=== PATIENT | male | born 1940 | race African-American/Black ===

== ENCOUNTER 2018-01-07 18:50 | Inpatient (IN) | payer MEDICARE ==
[~2018-01-07] VITALS: Ht 170.2 cm; Wt 74.9 kg
[2018-01-07] MEDS ORDERED: Sodium Chloride 500ML 500 ML IV ONE (19:39)
[2018-01-07] MEDS ORDERED: Ipratropium 0.02% Inh Soln 2.5ml UD HHN ONE (19:45)
[2018-01-07] MEDS ORDERED: Levalbuterol Inh UD 1.25mg/0.5ml HHN ONE (19:45)
[2018-01-07 20:00] VITALS: BP 113/79
[2018-01-07] MEDS ORDERED: Metoprolol 5mg/5ml Inj IVP ONE (21:00)
[2018-01-07 21:09] LABS: BASOPHILS % (AUTO) 2.2 % (0.0-2.0); EOSINOPHILS % (AUTO) 1.2 % (0.0-3.0); HEMATOCRIT 38.2 % (42.0-52.0); HEMOGLOBIN 12.7 G/DL (14.2-18.0); LYMPHOCYTES % (AUTO) 25.5 % (20.0-45.0); MEAN CORPUSCULAR VOLUME 95 FL (80-99); NEUTROPHILS % (AUTO) 63.1 % (45.0-75.0); PLATELET COUNT 138 K/UL (150-450); RED BLOOD COUNT 4.04 M/UL (4.70-6.10); RED CELL DISTRIBUTION WIDTH 13.7 % (11.6-14.8); WHITE BLOOD COUNT 9.7 K/UL (4.8-10.8)
[2018-01-07 21:10] LABS: APPEARANCE,URINE CLEAR; BILIRUBIN, URINE NEGATIVE (NEGATIVE); GLUCOSE, URINE (UA) NEGATIVE (NEGATIVE); KETONES,URINE 1+ (NEGATIVE); LEUKOCYTE ESTERASE ,URINE 1+ (NEGATIVE); NITRITE,URINE NEGATIVE (NEGATIVE); PH,URINE 5 (4.5-8.0); PROTEIN,URINE 1+ (NEGATIVE); UROBILINOGEN,URINE 1 MG/DL (0.0-1.0)
[2018-01-07 21:11] LABS: COLOR,URINE YELLOW
[2018-01-07 21:21] LABS: ANION GAP 14 mmol/L (5-15); BLOOD UREA NITROGEN 19 mg/dL (7-18); CALCIUM 9.1 MG/DL (8.5-10.1); CARBON DIOXIDE 21 MMOL/L (21-32); CHLORIDE 106 MMOL/L (98-107); CREATININE 1.5 MG/DL (0.55-1.30); POTASSIUM 3.9 MMOL/L (3.5-5.1); SODIUM 141 MMOL/L (136-145)
[2018-01-07 21:30] VITALS: BP 115/99
[2018-01-07 21:48] LABS: ALANINE AMINOTRANSFERASE 26 U/L (12-78); ALBUMIN 3.4 G/DL (3.4-5.0); ALBUMIN/GLOBULIN RATIO 0.7 (1.0-2.7); ALKALINE PHOSPHATASE 70 U/L (46-116); ASPARTATE AMINO TRANSFERASE 43 U/L (15-37); BILIRUBIN,TOTAL 0.9 MG/DL (0.2-1.0); CKMB 7.3 NG/ML (0.0-3.6); CREATINE KINASE 386 U/L (26-308)
[2018-01-07 22:20] LABS: INR 1.1 (0.9-1.1)
[2018-01-07] MEDS ORDERED: Heparin 5000 units/ml inj IV ONE (22:45)
[2018-01-07] MEDS ORDERED: Heparin 25,000u/D5W 500ml 500 ML IV SCH (22:45)
[2018-01-07 23:00] VITALS: BP 105/86
[2018-01-07] MEDS ORDERED: Heparin 5000 units/ml inj ONE (23:13)
[2018-01-07] MEDS ORDERED: Heparin 25,000u/D5W 500ml 500 ML IV ONE (23:13)
--- NOTE | 2018-01-07 23:16 | Emergency Room Report ---
History of Present Illness General Chief Complaint: Upper Respiratory Illness Source: Patient Present Illness HPI 77-year-old male presents ED for evaluation. Patient complaining of cough 2 weeks. Dry with white phlegm at times. Denies chest pain or shortness of breath. Denies fevers chills. States other family members also are sick with the "flu". Did not receive flu shot this year. Denies recent travel. No other aggravating relieving factors. Denies any other associated symptoms Allergies: Coded Allergies: No Known Allergies (Unverified , 01/07/18) Patient History Past Medical History: none Past Surgical History: none Pertinent Family History: none Social History: Denies: smoking, alcohol use, drug use Immunizations: UTD Reviewed Nursing Documentation: PMH: Agreed; PSxH: Agreed Nursing Documentation-PMH Past Medical History: No History, Except For Review of Systems All Other Systems: negative except mentioned in HPI Physical Exam Vital Signs Date Time Temp Pulse Resp B/P (MAP) Pulse Ox O2 Delivery O2 Flow Rate FiO2 01/07/18 18:59 98.1 132 16 113/79 96 Room Air 01/07/18 19:53 21 Sp02 EP Interpretation: reviewed, normal General Appearance: no apparent distress, alert, GCS 15, non-toxic Head: normocephalic, atraumatic Eyes: bilateral eye normal inspection, bilateral eye PERRL ENT: hearing grossly normal, normal pharynx, no angioedema, normal voice Neck: full range of motion, supple/symm/no masses Respiratory: chest non-tender, decreased breath sounds, speaking full sentences Cardiovascular #1: no edema, tachycardia Cardiovascular #2: 2+ carotid (R), 2+ carotid (L), 2+ radial (R), 2+ radial (L) , 2+ dorsalis pedis (R), 2+ dorsalis pedis (L) Gastrointestinal: normal bowel sounds, non tender, soft, non-distended, no guarding, no rebound Rectal: deferred Genitourinary: normal inspection, no CVA tenderness Musculoskeletal: back normal, gait/station normal, normal range of motion, non- tender Neurologic: alert, oriented x3, responsive, motor strength/tone normal, sensory intact, speech normal Psychiatric: judgement/insight normal, memory normal, mood/affect normal, no suicidal/homicidal ideation Reflexes: 3+ bicep (R), 3+ bicep (L), 3+ tricep (R), 3+ tricep (L), 3+ knee (R) , 3+ knee (L) Skin: normal color, no rash, warm/dry, well hydrated Lymphatic: no adenopathy Procedures Critical Care Time Critical Care Time i. I feel this is a highly complex case requiring extensive working including EKG/Rhythm strip, Xray/CT/US, Blood/urine lab work, repeat exams while in ED, and administration of strong opiates/narcotics for pain control, admission to hospital or close patient follow up. Total time: 30 min bedside evaluation and treatment excludes procedures (EKG). Reason for critical care: afib, NSTEMI Possible complications: hypotension, hypertension, SD, shock, arrhythmias, metabolic acidosis, end organ damage, respiratory failure. Interventions: labs, IVFs, EKG, CXR, nebs, flu swab, consultation with cardiology. lopressor. cardizem drip, heparin drip Course: Patient presenting with cough and congestion. Given breathing treatment. EKG shows a flutter new onset. Chest x-ray shows some perihilar fullness. Troponin greater than 3. Denies chest pain. Creatinine 1.5. Initially given Lopressor. Discussed with Dr. Nolasco - started on cardizem drip and heparin drip Consultations: nursing staff, EMS, family Performed by: Dr Vallejo Tolerated well condition = critical j. because of unstable vital signs this patient had a condition that could potentially threaten life or limb. I feel this is a critical patient who required my full attention while patient was considered critical. Total Critical Care Time excluding procedures was greater than 35 minutes Medical Decision Making Diagnostic Impression: Primary Impression: Atrial flutter Qualified Codes: I48.92 - Unspecified atrial flutter Additional Impressions: NSTEMI (non-ST elevated myocardial infarction) Renal insufficiency ER Course Hospital Course 77 yo M presents with cough, congestion Differential diagnoses include: SD/unstable angina, contusion, muscle strain, PTX, rib fracture, pneumonia, Clinical course Patient placed on stretcher. on secured entrance monitor which shows aflutter new onset. No prior history. Denies chest pain or shortness of breath started on neb treatments labs reviewed- no leukocytosis, hemoglobin/hematocrit ok, Cr 1.5, trop > 3 EKG - aflutter, no acute ischemic changes interpreted by me Chest x-ray- no lobar infiltrate Levaquin given. discussed case with Dr Nolasco - recommended cardizem drip, heparin drip Case discussed with Dr. Watt and he agreed to accept the patient to his service for further care and support I. I feel this is a highly complex case requiring extensive working including EKG/Rhythm strip, Xray/CT/US, Blood/urine lab work, repeat exams while in ED, and administration of strong opiates/narcotics for pain control, admission to hospital or close patient follow up. Diagnosis - aflutter, NSTEMI, renal insufficency admitted to ICU in critical condition Labs Test 01/07/18 20:45 White Blood Count 9.7 K/UL (4.8-10.8) Red Blood Count 4.04 M/UL (4.70-6.10) Hemoglobin 12.7 G/DL (14.2-18.0) Hematocrit 38.2 % (42.0-52.0) Mean Corpuscular Volume 95 FL (80-99) Mean Corpuscular Hemoglobin 31.4 PG (27.0-31.0) Mean Corpuscular Hemoglobin Concent 33.2 G/DL (32.0-36.0) Red Cell Distribution Width 13.7 % (11.6-14.8) Platelet Count 138 K/UL (150-450) Mean Platelet Volume 9.2 FL (6.5-10.1) Neutrophils (%) (Auto) 63.1 % (45.0-75.0) Lymphocytes (%) (Auto) 25.5 % (20.0-45.0) Monocytes (%) (Auto) 8.0 % (1.0-10.0) Eosinophils (%) (Auto) 1.2 % (0.0-3.0) Basophils (%) (Auto) 2.2 % (0.0-2.0) Prothrombin Time 11.8 SEC (9.30-11.50) Prothromb Time International Ratio 1.1 (0.9-1.1) Activated Partial Thromboplast Time 29 SEC (23-33) Urine Color Yellow Urine Appearance Clear Urine pH 5 (4.5-8.0) Urine Specific [place] 1.020 (1.005-1.035) Urine Protein 1+ (NEGATIVE) Urine Glucose (UA) Negative (NEGATIVE) Urine Ketones 1+ (NEGATIVE) Urine Blood Negative (NEGATIVE) Urine Nitrite Negative (NEGATIVE) Urine Bilirubin Negative (NEGATIVE) Urine Urobilinogen 1 MG/DL (0.0-1.0) Urine Leukocyte Esterase 1+ (NEGATIVE) Urine RBC 0-2 /HPF (0 - 0) Urine WBC 2-4 /HPF (0 - 0) Urine Squamous Epithelial Cells None /LPF (NONE/OCC) Urine Bacteria Few /HPF (NONE) Sodium Level 141 MMOL/L (136-145) Potassium Level 3.9 MMOL/L (3.5-5.1) Chloride Level 106 MMOL/L (98-107) Carbon Dioxide Level 21 MMOL/L (21-32) Anion Gap 14 mmol/L (5-15) Blood Urea Nitrogen 19 mg/dL (7-18) Creatinine 1.5 MG/DL (0.55-1.30) Estimat Glomerular Filtration Rate mL/min (>60) Glucose Level 118 MG/DL (74-106) Lactic Acid Level 1.40 mmol/L (0.4-2.0) Calcium Level 9.1 MG/DL (8.5-10.1) Total Bilirubin 0.9 MG/DL (0.2-1.0) Aspartate Amino Transf (AST/SGOT) 43 U/L (15-37) Alanine Aminotransferase (ALT/SGPT) 26 U/L (12-78) Alkaline Phosphatase 70 U/L (46-116) Total Creatine Kinase 386 U/L (26-308) Creatine Kinase MB 7.3 NG/ML (0.0-3.6) Creatine Kinase MB Relative Index 1.8 Troponin I 3.317 ng/mL (0.000-0.056) Pro-B-Type Natriuretic Peptide 54775 pg/mL (0-125) Total Protein 8.0 G/DL (6.4-8.2) Albumin 3.4 G/DL (3.4-5.0) Globulin 4.6 g/dL Albumin/Globulin Ratio 0.7 (1.0-2.7) EKG Diagnostic Results Rate: tachycardiac Rhythm: other - aflutter ST Segments: no acute changes ASA given to the pt in ED: No Rhythm Strip Diag. Results EP Interpretation: yes Rhythm: no PVC's, no ectopy Chest X-Ray Diagnostic Results Chest X-Ray Diagnostic Results : Chest X-Ray Ordered: Yes # of Views/Limited/Complete: 1 View Indication: Other - cough EP Interpretation: Yes Interpretation: no pneumothorax, other - perihilar fullness Impression: No acute disease Electronically Signed by: Electronically signed by Jase Vallejo MD Last Vital Signs Date Time Temp Pulse Resp B/P (MAP) Pulse Ox O2 Delivery O2 Flow Rate FiO2 01/07/18 23:00 126 105/86 01/07/18 20:01 17 100 Room Air 21 01/07/18 18:59 98.1 Status: improved Disposition: ADMITTED INPATIENT Condition: Critical Referrals: DARLINE UPTON MD (PCP) Jase Vallejo MD Jan 07, 2018 23:16
[2018-01-07] MEDS ORDERED: Levofloxacin 500mg tab ORAL ONE (23:30)
[2018-01-07] MEDS ORDERED: Levofloxacin 500mg tab ONE (23:38)
[2018-01-08] VITALS (21 sets, daily range): BP systolic 80–114; BP diastolic 52–85
[2018-01-08] MEDS ORDERED: Sodium Chloride 500ML 550 ML IV SCH (05:15)
[2018-01-08 06:59] LABS: INR 1.2 (0.9-1.1)
[2018-01-08] MEDS: Heparin 25,000u/D5W 500ml 500 ML IV SCH ×2 (08:27→23:24)
[2018-01-08] MEDS ORDERED: Heparin 25,000u/D5W 500ml 500 ML IV SCH (08:30)
[2018-01-08 09:22] LABS: BASOPHILS % (AUTO) 1.1 % (0.0-2.0); EOSINOPHILS % (AUTO) 0.7 % (0.0-3.0); HEMATOCRIT 41.1 % (42.0-52.0); LYMPHOCYTES % (AUTO) 22.5 % (20.0-45.0); MEAN CORPUSCULAR VOLUME 95 FL (80-99); MONOCYTES % (AUTO) 9.4 % (1.0-10.0); NEUTROPHILS % (AUTO) 66.3 % (45.0-75.0); PLATELET COUNT 128 K/UL (150-450); RED BLOOD COUNT 4.35 M/UL (4.70-6.10); RED CELL DISTRIBUTION WIDTH 14.2 % (11.6-14.8); WHITE BLOOD COUNT 9.5 K/UL (4.8-10.8)
[2018-01-08] MEDS ORDERED: guaiFENesin 100mg/5ml Liq ud ORAL PRN (09:30)
[2018-01-08] MEDS ORDERED: Ipratropium 0.02% Inh Soln 2.5ml UD HHN PRN (09:30)
[2018-01-08] MEDS ORDERED: Azithromycin 250mg tab ORAL SCH (09:39)
--- NOTE | 2018-01-08 09:39 | Consultation ---
Consult Note Consult Note asked to eval for renal insufficiency 77-year-old male presents ED for evaluation. Patient complaining of cough 2 weeks. Dry with white phlegm at times. Denies chest pain or shortness of breath. Denies fevers chills. States other family members also are sick with the "flu". Did not receive flu shot this year. Denies recent travel. No other aggravating relieving factors. Denies any other associated symptoms Allergies: Coded Allergies: No Known Allergies (Unverified , 01/07/18) examined discussed with immigration officer/Plan Renal failure ? chronic Atrial Flutter NSTMI, elevated Troponin cardiazem drip- 2 D Echo check TSH Urine studies monitor renal parameters per orders per cardio Tu Garcia MD Jan 08, 2018 09:39
--- NOTE | 2018-01-08 09:46 | Consultation ---
Consult Note Assessment/Plan [facility] DICT # [id number] URI/bronchitis AFlcRVR NSTEMI Abnl Cr, MADHAV vs CKD Prior (remote) DVT Dilt gtt [facility] Cards/EPS eval ? CV IVF CTx/Azith Atrovent HHN Mucinex/Toribio PRN NPO until seen by Wally England MD Jan 08, 2018 09:46
[2018-01-08] MEDS: D5NS 1,000 ML IV SCH (10:07)
--- NOTE | 2018-01-08 10:20 | Diagnostic Imaging Report ---
Indication: Chest pain Technique: One view of the chest Comparison: none Findings: The heart is enlarged. The right costophrenic sulcus is obscured, may indicate a small amount of pleural fluid. There is equivocal minimal perihilar interstitial congestion. No focal airspace consolidation. There may be some atelectasis at the right lung base. Impression: Cardiomegaly Possible mild perihilar interstitial congestion and small right pleural effusion
[2018-01-08] MEDS: cefTRIAXone 1 GM in D5W 55 ML IVPB SCH (11:00)
--- NOTE | 2018-01-08 11:45 | Consultation ---
DATE OF CONSULTATION: 01/08/2018 PULMONARY AND CRITICAL CARE CONSULTATION CONSULTING PHYSICIAN: Wally Chowdhury M.D. REFERRING PHYSICIAN: Inocencia Watt M.D. REASON FOR CONSULTATION: Critical care management and respiratory illness. HISTORY OF PRESENT ILLNESS: The patient is a very pleasant 77-year-old male, lifelong nonsmoker with remote history of DVT greater than 15 years ago, who presented to the ED for evaluation of cough for 2 weeks. Initially 2 weeks ago, he started having some rhinorrhea, congestion, cough, and sore throat. He treated himself with cnlv-zww-bobvdfx cold and flu medications with some alleviation of his symptoms, however, over the course of the past few days, the symptoms recurred prompting him to come to the ER for evaluation. He did not have a flu shot this year. He does have some sick family members. In addition to cough and congestion, he notes some wheezing, shortness of breath, low-grade fevers. No chills. No nausea, vomiting, diarrhea, or constipation. Upon arrival to the ER, he was afebrile, but he was in atrial flutter with rapid rate, borderline blood pressure. He has been saturating well on room air to 2 L. PAST MEDICAL HISTORY: DVT in 2002, etiology unknown. PAST SURGICAL HISTORY: None. ALLERGIES: No known drug allergies. MEDICATIONS: Prior to admission, medications none. 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 He is , has grown kids, and has a dog at home. No tobacco, alcohol, or drug use. FAMILY HISTORY: Noncontributory. REVIEW OF SYSTEMS: Negative other than the history of present illness. PHYSICAL EXAMINATION: VITAL SIGNS: Temperature 98.1, pulse 102 and regular, respiratory rate 18, blood pressure 98/71, saturating 99% on room air. GENERAL: He is a well-developed, well-nourished male, in no acute distress. Awake, alert, and oriented x3. HEENT: Normocephalic and atraumatic. Oropharynx is clear with moist mucous membranes. NECK: Supple without lymphadenopathy or JVD. CHEST: Clear to auscultation bilaterally without wheezing, rales, or rhonchi. HEART: Regular rate and rhythm. No murmurs, rubs, or gallops. ABDOMEN: Soft, nontender, and nondistended. EXTREMITIES: No cyanosis, clubbing, or edema. ANCILLARY DATA: White count 9.7, hemoglobin 12.7, and platelet count 138,000. INR 1.2. Sodium 141, potassium 3.9, chloride 105, bicarbonate 21, BUN 19, creatinine 1.5, glucose 148, lactic acid 1.4, calcium 9.1, total bilirubin 0.9, AST 43, ALT 26, and alkaline phosphatase 70. Total creatine kinase 386, CK-MB 7.3, troponin 3.317 and 2.316. ProBNP 11,863. Total protein 8, albumin 3.4, globulin 4.6. Urine, 1+ protein, 1+ ketones. Rapid influenza A and B in the ER was negative. Chest x-ray though not yet loaded on PACS, per ER report was within normal limits. ASSESSMENT: The patient is a very pleasant 77-year-old male, lifelong nonsmoker with remote history of DVT, presenting with a recent respiratory illness, likely URI/bronchitis, complicated by atrial flutter with a rapid ventricular response, exs-RW-pjtfhxlhf [place], and abnormal creatinine (MADHAV versus CKD). PROBLEM LIST: 1. Respiratory illness, URI/tracheobronchitis versus early pneumonia. 2. Systemic inflammatory response syndrome. 3. Atrial flutter with rapid ventricular response. 4. Tng-UA-jxlwzkzmf [place], likely demand ischemia in the setting of rapid atrial flutter. 5. 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 6. Remote history of DVT in 2012, off anticoagulation prior to this admission. TREATMENT PLAN: 1. Continue ICU care. 2. Continue diltiazem drip and IV unfractionated heparin per Cardiology. 3. The patient may require chemical or mechanical cardioversion. 4. Follow up echocardiogram. 5. Trend EKG and troponin. 6. Monitor renal function and volumes, we will start gentle IV fluid hydration. 7. We will start Rocephin and azithromycin (today is day #1). 8. Follow up cultures including respiratory and viral culture. 9. We will keep n.p.o. until evaluated by Dr. Conde in the event the patient requires a cardioversion. 10. Follow up duplex of the lower extremities and D-dimer. 11. DVT prophylaxis. The patient is on IV unfractionated heparin. 12. Optimize pulmonary hygiene/mobilize as tolerated. 13. Dkqmb-lgh-wgkvj and p.r.n. Atrovent only handheld nebulized treatment. 14. Mucinex and p.r.n. Robitussin. CRITICAL CARE TIME: [address] Watt, thank you for allowing me to assist in the care of your patient. If I may be of any assistance in the future, please do not hesitate to ask. Wally Chowdhury M.D. DR: Jagdish JOB#: [id number] CC:
[2018-01-08 12:14] LABS: BASOPHILS % (AUTO) 1.3 % (0.0-2.0); EOSINOPHILS % (AUTO) 0.3 % (0.0-3.0); HEMOGLOBIN 12.7 G/DL (14.2-18.0); MEAN CORPUSCULAR VOLUME 94 FL (80-99); NEUTROPHILS % (AUTO) 72.3 % (45.0-75.0); PLATELET COUNT 143 K/UL (150-450); RED BLOOD COUNT 4.24 M/UL (4.70-6.10); RED CELL DISTRIBUTION WIDTH 14.3 % (11.6-14.8); WHITE BLOOD COUNT 9.7 K/UL (4.8-10.8)
--- NOTE | 2018-01-08 12:31 | GI Initial Consult Note ---
History of Present Illness General Date patient seen: Jan 08, 2018 Time patient seen: 12:22 Reason for Hospitalization: Upper Respiratory Illness Referring physician: THEA MIRZA Reason for Consultation: ANEMIA Present Illness HPI 77-year-old male presents ED for evaluation. Patient complaining of cough 2 weeks. Dry with white phlegm at times. Denies chest pain or shortness of breath. Denies fevers chills. States other family members also are sick with the "flu". Did not receive flu shot this year. Denies recent travel. No other aggravating relieving factors. Denies any other associated symptoms GI consulted for anemia. Pt seen, awake A&Ox4 NAD, denying any general GI symptoms; no abdominal pain, no N/V/D or constipation. Pt seen in ED, noted with atrial flutter now on heparin and cardizem gtt. The patient had endoscopy / colonoscopy over 7 years ago. Labs reviewed; normocytic anemia and elevated troponin levels. Home Meds No Active Prescriptions or Reported Meds Med list reviewed/reconciled: Yes Allergies: Coded Allergies: No Known Allergies (Unverified , 01/07/18) Patient History History Provided By: Patient, Medical Record PMH Narrative Past Medical History: none Past Surgical History: none Pertinent Family History: none Social History: Denies: smoking, alcohol use, drug use Immunizations: UTD Reviewed Nursing Documentation: PMH: Agreed; PSxH: Agreed Nursing Documentation-PM Past Medical History: No History, Except For Social History: Denies: smoking, alcohol use, drug use, other Review of Systems All Other Systems: negative except mentioned in HPI Physical Exam Vital Signs Date Time Temp Pulse Resp B/P (MAP) Pulse Ox O2 Delivery O2 Flow Rate FiO2 01/07/18 18:59 98.1 132 16 113/79 96 Room Air 01/07/18 19:53 21 01/08/18 08:37 2.0 Sp02 EP Interpretation: reviewed, normal Labs Laboratory Tests Test 01/07/18 20:45 01/08/18 05:15 01/08/18 09:55 01/08/18 11:55 White Blood Count 9.7 K/UL (4.8-10.8) 9.5 K/UL (4.8-10.8) 9.7 K/UL (4.8-10.8) Red Blood Count 4.04 M/UL (4.70-6.10) L 4.35 M/UL (4.70-6.10) L 4.24 M/UL (4.70-6.10) L Hemoglobin 12.7 G/DL (14.2-18.0) L 13.0 G/DL (14.2-18.0) L 12.7 G/DL (14.2-18.0) L Hematocrit 38.2 % (42.0-52.0) L 41.1 % (42.0-52.0) L 40.0 % (42.0-52.0) L Mean Corpuscular Volume 95 FL (80-99) 95 FL (80-99) 94 FL (80-99) Mean Corpuscular Hemoglobin 31.4 PG (27.0-31.0) H 29.8 PG (27.0-31.0) 30.0 PG (27.0-31.0) Mean Corpuscular Hemoglobin Concent 33.2 G/DL (32.0-36.0) 31.5 G/DL (32.0-36.0) L 31.8 G/DL (32.0-36.0) L Red Cell Distribution Width 13.7 % (11.6-14.8) 14.2 % (11.6-14.8) 14.3 % (11.6-14.8) Platelet Count 138 K/UL (150-450) L 128 K/UL (150-450) L 143 K/UL (150-450) L Mean Platelet Volume 9.2 FL (6.5-10.1) 8.6 FL (6.5-10.1) 9.3 FL (6.5-10.1) Neutrophils (%) (Auto) 63.1 % (45.0-75.0) 66.3 % (45.0-75.0) 72.3 % (45.0-75.0) Lymphocytes (%) (Auto) 25.5 % (20.0-45.0) 22.5 % (20.0-45.0) 18.0 % (20.0-45.0) L Monocytes (%) (Auto) 8.0 % (1.0-10.0) 9.4 % (1.0-10.0) 8.0 % (1.0-10.0) Eosinophils (%) (Auto) 1.2 % (0.0-3.0) 0.7 % (0.0-3.0) 0.3 % (0.0-3.0) Basophils (%) (Auto) 2.2 % (0.0-2.0) H 1.1 % (0.0-2.0) 1.3 % (0.0-2.0) Prothrombin Time 11.8 SEC (9.30-11.50) H 12.4 SEC (9.30-11.50) H Prothromb Time International Ratio 1.1 (0.9-1.1) 1.2 (0.9-1.1) H Activated Partial Thromboplast Time 29 SEC (23-33) 70 SEC (23-33) H Urine Color Yellow Urine Appearance Clear Urine pH 5 (4.5-8.0) Urine Specific [place] 1.020 (1.005-1.035) Urine Protein 1+ (NEGATIVE) H Urine Glucose (UA) Negative (NEGATIVE) Urine Ketones 1+ (NEGATIVE) H Urine Blood Negative (NEGATIVE) Urine Nitrite Negative (NEGATIVE) Urine Bilirubin Negative (NEGATIVE) Urine Urobilinogen 1 MG/DL (0.0-1.0) H Urine Leukocyte Esterase 1+ (NEGATIVE) H Urine RBC 0-2 /HPF (0 - 0) H Urine WBC 2-4 /HPF (0 - 0) Urine Squamous Epithelial Cells None /LPF (NONE/OCC) Urine Bacteria Few /HPF (NONE) Sodium Level 141 MMOL/L (136-145) Pending Potassium Level 3.9 MMOL/L (3.5-5.1) Pending Chloride Level 106 MMOL/L (98-107) Pending Carbon Dioxide Level 21 MMOL/L (21-32) Pending Anion Gap 14 mmol/L (5-15) Blood Urea Nitrogen 19 mg/dL (7-18) H Pending Creatinine 1.5 MG/DL (0.55-1.30) H Pending Estimat Glomerular Filtration Rate mL/min (>60) Pending Glucose Level 118 MG/DL (74-106) H Pending Lactic Acid Level 1.40 mmol/L (0.4-2.0) Calcium Level 9.1 MG/DL (8.5-10.1) Pending Total Bilirubin 0.9 MG/DL (0.2-1.0) Pending Aspartate Amino Transf (AST/SGOT) 43 U/L (15-37) H Pending Alanine Aminotransferase (ALT/SGPT) 26 U/L (12-78) Pending Alkaline Phosphatase 70 U/L (46-116) Pending Total Creatine Kinase 386 U/L (26-308) H Creatine Kinase MB 7.3 NG/ML (0.0-3.6) H Creatine Kinase MB Relative Index 1.8 Troponin I 3.317 ng/mL (0.000-0.056) 2.367 ng/mL (0.000-0.056) Pending Pro-B-Type Natriuretic Peptide 86304 pg/mL (0-125) H Pending Total Protein 8.0 G/DL (6.4-8.2) Pending Albumin 3.4 G/DL (3.4-5.0) Pending Globulin 4.6 g/dL Pending Albumin/Globulin Ratio 0.7 (1.0-2.7) L Arterial Blood pH 7.373 (7.350-7.450) Arterial Blood Partial Pressure CO2 32.1 mmHg (35.0-45.0) L Arterial Blood Partial Pressure O2 124.5 mmHg (75.0-100.0) H Arterial Blood HCO3 18.3 mmol/L (22.0-26.0) L Arterial Blood Oxygen Saturation 97.9 % (95-100) Arterial Blood Base Excess -5.9 (-2-2) L Asad Test Positive D-Dimer Pending Hemoglobin A1c Pending Uric Acid Pending Phosphorus Level Pending Magnesium Level Pending Gamma Glutamyl Transpeptidase Pending C-Reactive Protein, Quantitative Pending Triglycerides Level Pending Cholesterol Level Pending LDL Cholesterol Pending HDL Cholesterol Pending Cholesterol/HDL Ratio Pending Thyroid Stimulating Hormone (TSH) Pending General Appearance: well appearing, no apparent distress, alert Head: normocephalic EENT: PERRL/EOMI, normal ENT inspection Neck: supple Respiratory: normal breath sounds, no respiratory distress Cardiovascular: normal rate Gastrointestinal: normal inspection, non tender, soft, normal bowel sounds, non -distended Rectal: deferred Genitourinary: deferred Musculoskeletal: normal inspection, back normal Neurologic: normal inspection, alert, oriented x3, responsive Psychiatric: normal inspection, judgement/insight normal, memory normal Skin: normal inspection, normal color, no rash, warm/dry, palpation normal, well hydrated Lymphatic: normal inspection, no adenopathy Current Medications Current Medications Medications (Trade) Dose Ordered Sig/Fritz Route PRN Reason Start Time Stop Time Status Last Admin Dose Admin Acetaminophen (Tylenol) 650 mg Q4HR PRN ORAL For Pain 01/08/18 05:45 02/07/18 05:44 Azithromycin (Zithromax) 250 mg DAILY ORAL 01/09/18 09:00 01/16/18 08:59 Ceftriaxone Sodium 1 gm/ Dextrose 55 ml @ 110 mls/hr Q24H IVPB 01/08/18 11:00 01/15/18 10:59 01/08/18 11:00 Dextrose/Sodium Chloride 1,000 ml @ 50 mls/hr Q20H IV 01/08/18 09:51 02/07/18 09:50 01/08/18 10:07 Diltiazem HCl 125 mg/Dextrose 125 ml @ 0 mls/hr Q24H IV 01/08/18 07:00 01/09/18 06:59 01/08/18 12:19 Guaifenesin (Mucinex ER) 600 mg TWICE A DAY ORAL 01/08/18 18:00 02/07/18 17:59 Guaifenesin (Robitussin) 100 mg Q4H PRN ORAL For Cough 01/08/18 09:30 02/07/18 09:29 Heparin Sodium/ Dextrose 500 ml @ 17.418 mls/ hr ADJUST PER PROTOCOL IV 01/08/18 08:27 02/07/18 08:26 Ipratropium [place] (Atrovent) 500 mcg Q4H PRN HHN Shortness of Breath 01/08/18 09:30 01/13/18 09:29 Ipratropium [place] (Atrovent) 500 mcg Q6HRT HHN 01/08/18 13:00 01/13/18 12:59 Pantoprazole (Protonix) 40 mg DAILY ORAL 01/08/18 09:39 02/07/18 09:38 01/08/18 10:07 GI: Plan Problems: (1) Anemia (2) Atrial flutter (3) Atrial fibrillation (4) NSTEMI (non-ST elevated myocardial infarction) Plan fu cardiology recommendations no urgent GI procedures needed at this time advance diet anemia work up OB stool r/o GI bleed monitor H&H, prn transfusions bowel regime ppi zofran prn fu labs outpatient GI procedures, will require cardiac clearance prior Discussed with Dr. Boo. Thank you for this patient referral, we will follow. The patient was seen and examined at bedside and all new and available data was reviewed in the patients chart. I agree with the above findings, impression and plan. (Patient seen earlier today. Signature stamp does not reflect patient encounter time.). - MD Samaria Franklin,[facility] [place] TRIAGE REGISTERED NURSE Jan 08, 2018 12:31
[2018-01-08 12:41] LABS: ALANINE AMINOTRANSFERASE 28 U/L (12-78); ALBUMIN 3.2 G/DL (3.4-5.0); ALBUMIN/GLOBULIN RATIO 0.7 (1.0-2.7); ALKALINE PHOSPHATASE 69 U/L (46-116); ANION GAP 13 mmol/L (5-15); ASPARTATE AMINO TRANSFERASE 35 U/L (15-37); BILIRUBIN,TOTAL 1.1 MG/DL (0.2-1.0); BLOOD UREA NITROGEN 20 mg/dL (7-18); CALCIUM 8.6 MG/DL (8.5-10.1); CARBON DIOXIDE 20 MMOL/L (21-32); CHLORIDE 107 MMOL/L (98-107); CHOLESTEROL 100 MG/DL (< 200); CREATININE 1.5 MG/DL (0.55-1.30); GAMMA GLUTAMYL TRANSPEPTIDASE 44 U/L (5-85); HDL CHOLESTEROL 41 MG/DL (40-60); PHOSPHORUS 4.2 MG/DL (2.5-4.9); POTASSIUM 4.2 MMOL/L (3.5-5.1); SODIUM 140 MMOL/L (136-145); TRIGLYCERIDES 70 MG/DL (30-150)
[2018-01-08] MEDS: Ipratropium 0.02% Inh Soln 2.5ml UD HHN SCH ×2 (12:45→19:50)
[2018-01-08 12:49] LABS: BILIRUBIN,DIRECT 0.3 MG/DL (0.0-0.3)
--- NOTE | 2018-01-08 15:15 | Consultation ---
DATE OF CONSULTATION: 01/08/2018 INFECTIOUS DISEASES CONSULTATION CONSULTING PHYSICIAN: Trinh Landon M.D. REFERRING PHYSICIAN: Inocencia Watt M.D. This consultation has been done on behalf of Dr. Alexis Rivera. REASON FOR CONSULTATION: Pneumonia. HISTORY OF PRESENTING ILLNESS: This is a 77-year-old gentleman with history of DVT, who came in with cough along with shortness of breath, some congestion, and sore throat. He was found to be having atrial flutter with rapid rate. He has been admitted to the ICU and an Infectious Diseases consultation has been obtained for antibiotics. PAST MEDICAL HISTORY: History of DVT. SOCIAL HISTORY: He does not smoke, drink, or use drugs. FAMILY HISTORY: Noncontributory. REVIEW OF SYSTEMS: RESPIRATORY: No fever or chills. He does have cough. He has shortness of breath. No chest pain. CARDIAC: No chest pain. No palpitation. No dizziness. No syncope. GASTROINTESTINAL: No nausea. No vomiting. No abdominal pain or diarrhea. MEDICATIONS: As an inpatient, he is on azithromycin, guaifenesin, ipratropium, ceftriaxone, Protonix, Atrovent, heparin, diltiazem, Tylenol. ALLERGIES: No known drug allergies. PHYSICAL EXAMINATION: VITAL SIGNS: Temperature of 98.1, T-max of 98.2, pulse of 126, respiratory rate of 18, blood pressure 118/89, O2 saturation of 99%. HEENT: Pupils equally reactive to light and accommodation. Mouth appears clean without thrush. NECK: Supple. No adenopathy. No JVD. CARDIOVASCULAR: Regular rate and rhythm. No murmurs. LUNGS: Clear to auscultation bilaterally. No crackles. No wheezes. ABDOMEN: Soft and nontender. No organomegaly. EXTREMITIES: No cyanosis, no clubbing, no edema. LABORATORY AND DIAGNOSTIC DATA: White count 9.5, hemoglobin 13, hematocrit 41, MCV 95, platelet count of 128,000; neutrophils of 66%. Sodium 141, potassium 3.9, chloride 106, bicarbonate 21, BUN 19, creatinine 1.5, glucose 118, calcium 9.1, total bilirubin 0.9, AST 43, ALT 26, alkaline phosphatase 70. CK of 386, CK-MB 7.3, troponin 2.36, beta-natriuretic peptide 11,863. Total protein 8, albumin 3.4. UA showing 2-4 white cells. Nasal swab was negative for influenza A and B. Chest x-ray showing possible mild perihilar interstitial congestion and small right-sided pleural effusion. ASSESSMENT: This is a 77-year-old gentleman with history of DVT, who comes in with cough and shortness of breath, and was found to have: 1. Possible community-acquired pneumonia versus atypical pneumonia. 2. History of DVT. 3. Myocardial infarction. 4. Atrial flutter with rapid ventricular response. PLAN: 1. Continue ceftriaxone and azithromycin. 2. We will order sputum for Gram stain and culture. 3. We will order for serum Legionella antibody and Mycoplasma serology. 4. We will follow up cultures and adjust antibiotics accordingly. I would like to thank, Dr. Watt, for this consultation. Trinh Landon M.D. DR: Jess JOB#: [id number] CC: Inocencia Watt M.D.
--- NOTE | 2018-01-08 15:26 | Cardiac Electrophysiology PN ---
Subjective Subjective [id number] Objective Last 24 Hour Vital Signs Date Time Temp Pulse Resp B/P (MAP) Pulse Ox O2 Delivery O2 Flow Rate FiO2 01/08/18 12:48 124 20 98 Nasal Cannula 4.0 36 01/08/18 12:46 125 22 Nasal Cannula 4.0 36 01/08/18 12:45 125 22 98 Nasal Cannula 4.0 36 01/08/18 12:19 126 103/89 01/08/18 08:37 Nasal Cannula 2.0 01/08/18 07:00 126 118/89 01/08/18 06:06 98.1 102 18 98/71 99 Room Air 21 01/08/18 05:01 98.1 125 18 91/65 99 Room Air 21 01/08/18 04:00 98.2 124 16 98/75 99 Room Air 21 01/08/18 03:00 98.2 121 17 91/73 99 Room Air 21 01/08/18 02:00 98.2 121 16 95/77 99 Room Air 21 01/08/18 01:00 98.2 126 18 93/72 99 Room Air 21 01/08/18 00:00 98.2 124 18 88/61 99 Room Air 21 01/07/18 23:00 98.1 126 18 105/86 99 Room Air 21 01/07/18 23:00 126 105/86 01/07/18 21:30 98.1 103 18 115/99 99 Room Air 21 01/07/18 21:22 130 117/54 01/07/18 20:01 127 17 100 Room Air 21 01/07/18 20:00 121 Room Air 01/07/18 20:00 98.1 20 113/79 99 Room Air 21 01/07/18 19:53 128 20 99 Room Air 21 01/07/18 19:53 128 20 Room Air 21 01/07/18 18:59 98.1 132 16 113/79 96 Room Air Laboratory Tests Test 01/07/18 20:45 01/08/18 05:15 01/08/18 09:55 01/08/18 11:55 White Blood Count 9.7 K/UL (4.8-10.8) 9.5 K/UL (4.8-10.8) 9.7 K/UL (4.8-10.8) Red Blood Count 4.04 M/UL (4.70-6.10) L 4.35 M/UL (4.70-6.10) L 4.24 M/UL (4.70-6.10) L Hemoglobin 12.7 G/DL (14.2-18.0) L 13.0 G/DL (14.2-18.0) L 12.7 G/DL (14.2-18.0) L Hematocrit 38.2 % (42.0-52.0) L 41.1 % (42.0-52.0) L 40.0 % (42.0-52.0) L Mean Corpuscular Volume 95 FL (80-99) 95 FL (80-99) 94 FL (80-99) Mean Corpuscular Hemoglobin 31.4 PG (27.0-31.0) H 29.8 PG (27.0-31.0) 30.0 PG (27.0-31.0) Mean Corpuscular Hemoglobin Concent 33.2 G/DL (32.0-36.0) 31.5 G/DL (32.0-36.0) L 31.8 G/DL (32.0-36.0) L Red Cell Distribution Width 13.7 % (11.6-14.8) 14.2 % (11.6-14.8) 14.3 % (11.6-14.8) Platelet Count 138 K/UL (150-450) L 128 K/UL (150-450) L 143 K/UL (150-450) L Mean Platelet Volume 9.2 FL (6.5-10.1) 8.6 FL (6.5-10.1) 9.3 FL (6.5-10.1) Neutrophils (%) (Auto) 63.1 % (45.0-75.0) 66.3 % (45.0-75.0) 72.3 % (45.0-75.0) Lymphocytes (%) (Auto) 25.5 % (20.0-45.0) 22.5 % (20.0-45.0) 18.0 % (20.0-45.0) L Monocytes (%) (Auto) 8.0 % (1.0-10.0) 9.4 % (1.0-10.0) 8.0 % (1.0-10.0) Eosinophils (%) (Auto) 1.2 % (0.0-3.0) 0.7 % (0.0-3.0) 0.3 % (0.0-3.0) Basophils (%) (Auto) 2.2 % (0.0-2.0) H 1.1 % (0.0-2.0) 1.3 % (0.0-2.0) Prothrombin Time 11.8 SEC (9.30-11.50) H 12.4 SEC (9.30-11.50) H Prothromb Time International Ratio 1.1 (0.9-1.1) 1.2 (0.9-1.1) H Activated Partial Thromboplast Time 29 SEC (23-33) 70 SEC (23-33) H Urine Color Yellow Urine Appearance Clear Urine pH 5 (4.5-8.0) Urine Specific [place] 1.020 (1.005-1.035) Urine Protein 1+ (NEGATIVE) H Urine Glucose (UA) Negative (NEGATIVE) Urine Ketones 1+ (NEGATIVE) H Urine Blood Negative (NEGATIVE) Urine Nitrite Negative (NEGATIVE) Urine Bilirubin Negative (NEGATIVE) Urine Urobilinogen 1 MG/DL (0.0-1.0) H Urine Leukocyte Esterase 1+ (NEGATIVE) H Urine RBC 0-2 /HPF (0 - 0) H Urine WBC 2-4 /HPF (0 - 0) Urine Squamous Epithelial Cells None /LPF (NONE/OCC) Urine Bacteria Few /HPF (NONE) Sodium Level 141 MMOL/L (136-145) 140 MMOL/L (136-145) Potassium Level 3.9 MMOL/L (3.5-5.1) 4.2 MMOL/L (3.5-5.1) Chloride Level 106 MMOL/L (98-107) 107 MMOL/L (98-107) Carbon Dioxide Level 21 MMOL/L (21-32) 20 MMOL/L (21-32) L Anion Gap 14 mmol/L (5-15) 13 mmol/L (5-15) Blood Urea Nitrogen 19 mg/dL (7-18) H 20 mg/dL (7-18) H Creatinine 1.5 MG/DL (0.55-1.30) H 1.5 MG/DL (0.55-1.30) H Estimat Glomerular Filtration Rate mL/min (>60) mL/min (>60) Glucose Level 118 MG/DL (74-106) H 135 MG/DL (74-106) H Lactic Acid Level 1.40 mmol/L (0.4-2.0) Calcium Level 9.1 MG/DL (8.5-10.1) 8.6 MG/DL (8.5-10.1) Total Bilirubin 0.9 MG/DL (0.2-1.0) 1.1 MG/DL (0.2-1.0) H Aspartate Amino Transf (AST/SGOT) 43 U/L (15-37) H 35 U/L (15-37) Alanine Aminotransferase (ALT/SGPT) 26 U/L (12-78) 28 U/L (12-78) Alkaline Phosphatase 70 U/L (46-116) 69 U/L (46-116) Total Creatine Kinase 386 U/L (26-308) H Creatine Kinase MB 7.3 NG/ML (0.0-3.6) H Creatine Kinase MB Relative Index 1.8 Troponin I 3.317 ng/mL (0.000-0.056) 2.367 ng/mL (0.000-0.056) 2.047 ng/mL (0.000-0.056) Pro-B-Type Natriuretic Peptide 68342 pg/mL (0-125) H 34279 pg/mL (0-125) H Total Protein 8.0 G/DL (6.4-8.2) 7.8 G/DL (6.4-8.2) Albumin 3.4 G/DL (3.4-5.0) 3.2 G/DL (3.4-5.0) L Globulin 4.6 g/dL 4.6 g/dL Albumin/Globulin Ratio 0.7 (1.0-2.7) L 0.7 (1.0-2.7) L Arterial Blood pH 7.373 (7.350-7.450) Arterial Blood Partial Pressure CO2 32.1 mmHg (35.0-45.0) L Arterial Blood Partial Pressure O2 124.5 mmHg (75.0-100.0) H Arterial Blood HCO3 18.3 mmol/L (22.0-26.0) L Arterial Blood Oxygen Saturation 97.9 % (95-100) Arterial Blood Base Excess -5.9 (-2-2) L Asad Test Positive D-Dimer 16.05 mg/L FEU (0.00-0.49) H Hemoglobin A1c 5.3 % (4.3-6.0) Uric Acid 9.2 MG/DL (2.6-7.2) H Phosphorus Level 4.2 MG/DL (2.5-4.9) Magnesium Level 1.7 MG/DL (1.8-2.4) L Direct Bilirubin 0.3 MG/DL (0.0-0.3) Gamma Glutamyl Transpeptidase 44 U/L (5-85) C-Reactive Protein, Quantitative 7.8 mg/dL (0.00-0.90) H Triglycerides Level 70 MG/DL (30-150) Cholesterol Level 100 MG/DL (< 200) LDL Cholesterol 54 mg/dL (<100) HDL Cholesterol 41 MG/DL (40-60) Cholesterol/HDL Ratio 2.4 (3.3-4.4) L Thyroid Stimulating Hormone (TSH) 1.681 uiU/mL (0.358-3.740) Legionella pneumophila Group 1 Ab Pending Legionella pneumophilia IgM Group 1 Pending Mycoplasma pneumoniae IgG Antibody Pending Mycoplasma pneumoniae IgM Ab Titer Pending Microbiology Date/Time Source Procedure Growth Status 01/07/18 20:45 Nasal Nares Influenza Types A,B Antigen (RIOS) - Final Complete Antonio Conde MD Jan 08, 2018 15:26
[2018-01-08] MEDS ORDERED: Digoxin 0.5mg/2ml Inj IVP SCH (15:33)
--- NOTE | 2018-01-08 16:58 | Cardiology Report ---
APPROVED REPORT EXAM: Two-dimensional and M-mode echocardiogram with Doppler and color Doppler. INDICATION Congestive Heart Failure M-Mode DIMENSIONS IVSd1.4 (0.7-1.1cm)Left Atrium (MM)4.9 (1.6-4.0cm) LVDd5.2 (3.5-5.6cm)Aortic Root3.9 (2.0-3.7cm) PWd1.4 (0.7-1.1cm)Aortic Cusp Exc.1.3 (1.5-2.0cm) LVDs4.1 (2.5-4.0cm) PWs1.8 cm Echogenic materical noted in left ventricular apex on some view a thormbus cannot be excluded call placed to ordering physician to notify Normal left ventricular chamber size. Global left ventricular hypokinesis. Left ventricular ejection fraction estimated to be 20-25 %. Mild left ventricular hypertrophy. Large pleural effusion. Mild bi-atrial enlargement. Right ventricular chamber size is within normal limits. Aortic valve calcification with decreased cusp excursion c/w severe aortic stenosis. Heavily thickened mitral valve leaflets with reduced excursion. Heavy mitral annulus and aortic root calcification. Normal pulmonic valve structure. Normal tricuspid valve structure. IVC dilated at 2.2 cm without physiological collapse, suggestive of increased RA pressure. A color flow and spectral Doppler study was performed and revealed: Mild to moderate aortic insufficiency. Peak aortic valve gradient of 84 mmHg and a mean of 50 mmHg. Aortic valve area 0.9 cm2 calculated by continuity equation. Moderate to severe mitral regurgitation. Mitral inflow velocities indicates possible pseudo normalization pattern implying significant left ventricular diastolic dysfunction (Grade II). Mild tricuspid regurgitation. Tricuspid systolic velocities suggests peak right ventricular systolic pressure of 70 mmHg, consistent with severe pulmonary hypertension. Trace pulmonic regurgitation present.
[2018-01-08] MEDS: guaiFENesin ER 600mg tab ORAL SCH (17:36)
--- NOTE | 2018-01-08 20:15 | Consultation ---
DATE OF CONSULTATION: 01/08/2018 CARDIAC ELECTROPHYSIOLOGY CONSULTATION CONSULTING PHYSICIAN: Antonio Conde M.D. REFERRING PHYSICIAN: Inocencia Watt M.D. REASON FOR CONSULTATION: Atrial flutter with rapid ventricular response. HISTORY OF PRESENT ILLNESS: The patient is a 77-year-old gentleman with history of DVT in the past, presented to the emergency room complaining of increasing shortness of breath and cough. The patient was found to be in atrial flutter with rapid ventricular response with heart rate as high as 140 beats per minute. The patient received IV Cardizem and per my order started on Cardizem drip and was transferred to intensive care unit. The patient also underwent a lower extremity duplex that showed acute DVT on the right lower extremity. At the time of my evaluation, the heart is better on Cardizem drip and denies any chest pain. REVIEW OF SYSTEMS: Review of systems was negative other than what was mentioned in the history of present illness. PAST MEDICAL HISTORY: History of DVT. The patient denies any prior myocardial infarction, congestive heart failure, or known coronary artery disease. SOCIAL HISTORY: Does not smoke or drink alcohol or use any drugs. Lives at home. PHYSICAL EXAMINATION: VITAL SIGNS: Blood pressure is 103/89, pulse is 130, and respiration is 20. He is afebrile. HEAD AND NECK: Shows no jugular venous distention. LUNGS: Coarse rhonchi. CARDIOVASCULAR: Shows irregular S1 and S2 with no gallop or murmur and tachycardic. ABDOMEN: Soft. EXTREMITIES: No pitting edema. LABORATORY AND DIAGNOSTIC STUDIES: Laboratories show white count of 9.7, hemoglobin 12.7, hematocrit of 40, and platelet count of 143,000. Sodium 140, potassium 4.2, BUN of 20, creatinine 1.5, and glucose of 135. Troponin 2.367 and 2.04. Initial troponin was 3.317. His BNP is 11,863. CK 386. ASSESSMENT AND PLAN: 1. Troponin elevation. The levels are coming down from 3 to 2. The patient does not have any chest pain. His preliminary report show ejection fraction of only 20% to 25%. The patient would need cardiac catheterization for further evaluation of his coronaries and he will also need and to be optimized on medical therapy. 2. Atrial flutter with rapid ventricular response. This is newly diagnosed. Try to control the rate with Cardizem drip after that switched to the metoprolol in view of his cardiomyopathy. I will put him on Lasix and he would need Isordil in view of renal failure and creatinine 1.5. 3. Congestive heart failure, ejection fraction of 20% with BNP of 11,000. Again, start the patient on Lasix 40 intravenous b.i.d. Eventually would benefit from atrial flutter ablation. 4. Hypertension. Continue current heart failure therapy. 5. Possible pneumonia. On IV antibiotic per infrastructure technician and ID. Thank you very much, Dr. Watt, for allowing me to participate in the care of this patient. Please do not hesitate to contact me for any questions regarding my evaluation. Antonio Conde M.D. DR: EARNESTINE JOB#: [id number] CC:
[2018-01-08] MEDS: Metoprolol Tartrate 50mg tab ORAL SCH (22:01)
[2018-01-09] VITALS (30 sets, daily range): BP systolic 67–151; BP diastolic 41–124
--- NOTE | 2018-01-09 00:14 | History and Physical Report ---
DATE OF ADMISSION: 01/07/2018 HISTORY OF PRESENT ILLNESS: The patient is admitted for atrial fibrillation and non-accelerated myocardial infarction to the ICU, had cough and tachycardia. He had atrial fibrillation with troponin of 3.3 and azotemia as well. The patient had been complaining of productive cough and shortness of breath for 10 days. He does have some cold symptoms. PAST MEDICAL HISTORY: History of DVT, history of CAD, history of azotemia, and atrial fibrillation. PAST SURGICAL HISTORY: None. MEDICATIONS: Listed in the chart. SOCIAL HISTORY: Denies history of smoking, alcohol, or illicit drugs. REVIEW OF SYSTEMS: HEENT: Denies headaches. RESPIRATORY: Reports shortness of breath and nonproductive cough for 10 days, status post cold before that. CARDIOVASCULAR: Denies chest pain. Denies orthopnea. GI: Denies nausea, vomiting, or diarrhea. EXTREMITIES: Pain. PHYSICAL EXAMINATION: VITAL SIGNS: Temperature 97.2, pulse 70, and blood pressure 130/70. HEENT: PERRLA. NECK: Supple. CHEST: Clear to auscultation. CARDIOVASCULAR: Irregularly irregular. GI: Soft and distended. Positive bowel sounds. EXTREMITIES: No edema. Reflexes are equal on both sides. LABORATORY DATA: Creatinine 1.2. Troponin 3.3. ASSESSMENT AND PLAN: 1. Atrial fibrillation. 2. Myocardial infarction. 3. Acute renal failure. PLAN: The patient is in the ICU. Dr. Conde, Dr. Garcia, Dr. Hu, Dr. Boo, Dr. Alexis Rivera, and Dr. Chowdhury asked to see him for the above-mentioned diagnoses and treatment. Inocencia Watt M.D. DR: IRMA JOB#: [id number] CC:
[2018-01-09] MEDS: Ipratropium 0.02% Inh Soln 2.5ml UD HHN SCH ×4 (01:04→19:52)
[2018-01-09 04:57] LABS: BASOPHILS % (AUTO) 1.1 % (0.0-2.0); EOSINOPHILS % (AUTO) 0.9 % (0.0-3.0); HEMATOCRIT 37.7 % (42.0-52.0); HEMOGLOBIN 12.3 G/DL (14.2-18.0); LYMPHOCYTES % (AUTO) 21.9 % (20.0-45.0); MEAN CORPUSCULAR VOLUME 94 FL (80-99); MONOCYTES % (AUTO) 8.7 % (1.0-10.0); NEUTROPHILS % (AUTO) 67.4 % (45.0-75.0); PLATELET COUNT 132 K/UL (150-450); RED CELL DISTRIBUTION WIDTH 14.1 % (11.6-14.8); WHITE BLOOD COUNT 9.6 K/UL (4.8-10.8)
[2018-01-09 05:14] LABS: INR 1.2 (0.9-1.1)
[2018-01-09] MEDS: D5NS 1,000 ML IV SCH (05:15)
[2018-01-09 05:34] LABS: % IRON SATURATION 15 % (15-50); IRON 34 ug/dL (50-175); TOTAL IRON BINDING CAPACITY 228 ug/dL (250-450)
[2018-01-09 05:53] LABS: ALANINE AMINOTRANSFERASE 22 U/L (12-78); ALBUMIN 3.1 G/DL (3.4-5.0); ALBUMIN/GLOBULIN RATIO 0.7 (1.0-2.7); ALKALINE PHOSPHATASE 61 U/L (46-116); ANION GAP 12 mmol/L (5-15); ASPARTATE AMINO TRANSFERASE 44 U/L (15-37); BILIRUBIN,TOTAL 0.9 MG/DL (0.2-1.0); BLOOD UREA NITROGEN 19 mg/dL (7-18); CALCIUM 8.9 MG/DL (8.5-10.1); CARBON DIOXIDE 21 MMOL/L (21-32); CHLORIDE 106 MMOL/L (98-107); CREATININE 1.6 MG/DL (0.55-1.30); FERRITIN 450 NG/ML (8-388); POTASSIUM 4.8 MMOL/L (3.5-5.1); SODIUM 139 MMOL/L (136-145)
[2018-01-09] MEDS: guaiFENesin ER 600mg tab ORAL SCH ×2 (09:00→18:26)
[2018-01-09] MEDS: Metoprolol Tartrate 50mg tab ORAL SCH (09:00)
[2018-01-09] MEDS ORDERED: Azithromycin 250mg tab ORAL SCH (09:00)
[2018-01-09] MEDS ORDERED: Lisinopril 10mg tab ORAL SCH (09:00)
[2018-01-09] MEDS ORDERED: Tubing IV Secondary IV ONE (09:07)
[2018-01-09] MEDS ORDERED: D5 1/2NS 1000ml IV ONE (09:07)
--- NOTE | 2018-01-09 10:04 | Cardiac Electrophysiology PN ---
Assessment/Plan Assessment/Plan 1. Troponin elevation. The levels are coming down from 3 to 1.5. The patient does not have any chest pain. EF is only 20% to 25%. The patient would need cardiac catheterization for further evaluation of his coronaries after optimized on medical therapy. 2. Atrial flutter with rapid ventricular response. This is newly diagnosed. Now off Cardizem drip. Continue Dig and change Metoprolol to Coreg 25 bid Eventually would benefit from atrial flutter ablation. 3. Congestive heart failure, ejection fraction of 20% with BNP of 11,000. On Lasix 40 intravenous bid , Dig, lisinopril and Coreg 4. Hypertension. Continue current therapy.Add prn Clonidine 5. Possible pneumonia. On IV antibiotic per enterprise application analyst and ID. Subjective Subjective Heart rate better in ICU. No CP or SOB Objective Last 24 Hour Vital Signs Date Time Temp Pulse Resp B/P (MAP) Pulse Ox O2 Delivery O2 Flow Rate FiO2 01/09/18 09:00 80 20 115/97 (103) 99 01/09/18 09:00 115/97 01/09/18 09:00 80 117/97 01/09/18 08:40 Nasal Cannula 3.0 32 01/09/18 08:39 77 17 98 Nasal Cannula 3.0 32 01/09/18 08:39 98 Nasal Cannula 3.0 32 01/09/18 08:26 80 17 100 Nasal Cannula 3.0 32 01/09/18 08:00 Nasal Cannula 2.0 01/09/18 08:00 80 01/09/18 08:00 86 20 150/105 (120) 99 01/09/18 07:00 98.2 80 22 151/124 (133) 99 01/09/18 06:00 72 17 132/94 (107) 99 01/09/18 05:00 76 19 124/102 (109) 99 01/09/18 04:30 77 19 94/59 (71) 99 01/09/18 04:00 Nasal Cannula 2.0 01/09/18 04:00 97.9 76 19 131/85 (100) 99 01/09/18 04:00 76 01/09/18 03:30 76 19 129/93 (105) 99 01/09/18 03:00 70 19 96/65 (75) 99 01/09/18 02:30 71 19 68/41 (50) 99 01/09/18 02:00 71 19 67/45 (52) 99 01/09/18 01:30 76 25 82/62 (69) 100 01/09/18 01:16 68 16 100 Nasal Cannula 3.0 32 01/09/18 01:05 73 24 99 Nasal Cannula 3.0 32 01/09/18 01:00 72 25 85/54 (64) 100 01/09/18 00:30 71 25 85/68 (74) 100 01/09/18 00:15 67 25 91/69 (76) 100 01/09/18 00:00 Nasal Cannula 2.0 01/09/18 00:00 97.7 67 25 84/59 (67) 100 01/09/18 00:00 68 01/08/18 23:30 66 25 84/52 (63) 100 01/08/18 23:22 65 91/51 01/08/18 23:00 69 27 80/64 (69) 100 01/08/18 22:45 73 27 91/65 (74) 100 01/08/18 22:30 77 27 91/65 (74) 100 01/08/18 22:15 101 28 101/56 (71) 100 01/08/18 22:01 94 95/78 01/08/18 22:00 92 25 101/56 (71) 100 01/08/18 21:30 89 25 90/62 (71) 98 01/08/18 21:00 83 27 114/85 (95) 100 01/08/18 20:45 84 26 95/63 (74) 99 01/08/18 20:30 83 26 95/63 (74) 99 01/08/18 20:15 91 27 95/63 (74) 100 01/08/18 20:00 82 01/08/18 20:00 86 28 95/63 (74) 99 01/08/18 20:00 Nasal Cannula 2.0 01/08/18 19:59 82 18 100 Nasal Cannula 3.0 32 01/08/18 19:51 Nasal Cannula 3.0 32 01/08/18 19:51 99 Nasal Cannula 3.0 32 01/08/18 19:51 91 28 99 Nasal Cannula 3.0 32 01/08/18 19:50 96 28 Nasal Cannula 3.0 32 01/08/18 19:30 86 28 93/71 (78) 99 01/08/18 19:00 98.0 85 28 92/60 (71) 99 01/08/18 16:00 Nasal Cannula 2.0 01/08/18 16:00 87 01/08/18 15:33 99 01/08/18 12:48 124 20 98 Nasal Cannula 4.0 36 01/08/18 12:46 125 22 Nasal Cannula 4.0 36 01/08/18 12:45 125 22 98 Nasal Cannula 4.0 36 01/08/18 12:19 126 103/89 01/08/18 12:00 Nasal Cannula 2.0 01/08/18 12:00 99 Intake and Output 01/08/18 01/09/18 19:00 07:00 Intake Total 807.418 ml 781.598 ml Output Total 0 ml 800 ml Balance 807.418 ml -18.402 ml Intake Oral 200 ml IV Total 607.418 ml 781.598 ml Output Urine Total 0 ml 800 ml # Voids 1 Laboratory Tests Test 01/08/18 09:55 01/08/18 11:55 01/08/18 19:10 01/09/18 03:40 Arterial Blood pH 7.373 (7.350-7.450) Arterial Blood Partial Pressure CO2 32.1 mmHg (35.0-45.0) L Arterial Blood Partial Pressure O2 124.5 mmHg (75.0-100.0) H Arterial Blood HCO3 18.3 mmol/L (22.0-26.0) L Arterial Blood Oxygen Saturation 97.9 % (95-100) Arterial Blood Base Excess -5.9 (-2-2) L Asad Test Positive White Blood Count 9.7 K/UL (4.8-10.8) 9.6 K/UL (4.8-10.8) Red Blood Count 4.24 M/UL (4.70-6.10) L 4.00 M/UL (4.70-6.10) L Hemoglobin 12.7 G/DL (14.2-18.0) L 12.3 G/DL (14.2-18.0) L Hematocrit 40.0 % (42.0-52.0) L 37.7 % (42.0-52.0) L Mean Corpuscular Volume 94 FL (80-99) 94 FL (80-99) Mean Corpuscular Hemoglobin 30.0 PG (27.0-31.0) 30.7 PG (27.0-31.0) Mean Corpuscular Hemoglobin Concent 31.8 G/DL (32.0-36.0) L 32.6 G/DL (32.0-36.0) Red Cell Distribution Width 14.3 % (11.6-14.8) 14.1 % (11.6-14.8) Platelet Count 143 K/UL (150-450) L 132 K/UL (150-450) L Mean Platelet Volume 9.3 FL (6.5-10.1) 9.8 FL (6.5-10.1) Neutrophils (%) (Auto) 72.3 % (45.0-75.0) 67.4 % (45.0-75.0) Lymphocytes (%) (Auto) 18.0 % (20.0-45.0) L 21.9 % (20.0-45.0) Monocytes (%) (Auto) 8.0 % (1.0-10.0) 8.7 % (1.0-10.0) Eosinophils (%) (Auto) 0.3 % (0.0-3.0) 0.9 % (0.0-3.0) Basophils (%) (Auto) 1.3 % (0.0-2.0) 1.1 % (0.0-2.0) D-Dimer 16.05 mg/L FEU (0.00-0.49) H Sodium Level 140 MMOL/L (136-145) 139 MMOL/L (136-145) Potassium Level 4.2 MMOL/L (3.5-5.1) 4.8 MMOL/L (3.5-5.1) Chloride Level 107 MMOL/L (98-107) 106 MMOL/L (98-107) Carbon Dioxide Level 20 MMOL/L (21-32) L 21 MMOL/L (21-32) Anion Gap 13 mmol/L (5-15) 12 mmol/L (5-15) Blood Urea Nitrogen 20 mg/dL (7-18) H 19 mg/dL (7-18) H Creatinine 1.5 MG/DL (0.55-1.30) H 1.6 MG/DL (0.55-1.30) H Estimat Glomerular Filtration Rate mL/min (>60) mL/min (>60) Glucose Level 135 MG/DL (74-106) H 129 MG/DL (74-106) H Hemoglobin A1c 5.3 % (4.3-6.0) Uric Acid 9.2 MG/DL (2.6-7.2) H Calcium Level 8.6 MG/DL (8.5-10.1) 8.9 MG/DL (8.5-10.1) Phosphorus Level 4.2 MG/DL (2.5-4.9) Magnesium Level 1.7 MG/DL (1.8-2.4) L Total Bilirubin 1.1 MG/DL (0.2-1.0) H 0.9 MG/DL (0.2-1.0) Direct Bilirubin 0.3 MG/DL (0.0-0.3) Gamma Glutamyl Transpeptidase 44 U/L (5-85) Aspartate Amino Transf (AST/SGOT) 35 U/L (15-37) 44 U/L (15-37) H Alanine Aminotransferase (ALT/SGPT) 28 U/L (12-78) 22 U/L (12-78) Alkaline Phosphatase 69 U/L (46-116) 61 U/L (46-116) Troponin I 2.047 ng/mL (0.000-0.056) 1.552 ng/mL (0.000-0.056) C-Reactive Protein, Quantitative 7.8 mg/dL (0.00-0.90) H Pro-B-Type Natriuretic Peptide 42062 pg/mL (0-125) H Total Protein 7.8 G/DL (6.4-8.2) 7.6 G/DL (6.4-8.2) Albumin 3.2 G/DL (3.4-5.0) L 3.1 G/DL (3.4-5.0) L Globulin 4.6 g/dL 4.5 g/dL Albumin/Globulin Ratio 0.7 (1.0-2.7) L 0.7 (1.0-2.7) L Triglycerides Level 70 MG/DL (30-150) Cholesterol Level 100 MG/DL (< 200) LDL Cholesterol 54 mg/dL (<100) HDL Cholesterol 41 MG/DL (40-60) Cholesterol/HDL Ratio 2.4 (3.3-4.4) L Thyroid Stimulating Hormone (TSH) 1.681 uiU/mL (0.358-3.740) HIV (1&2) Antibody Rapid Negative (NEGATIVE) Legionella pneumophila Group 1 Ab Pending Legionella pneumophilia IgM Group 1 Pending Mycoplasma pneumoniae IgG Antibody Pending Mycoplasma pneumoniae IgM Ab Titer Pending Reticulocyte Count Pending Prothrombin Time 12.1 SEC (9.30-11.50) H Prothromb Time International Ratio 1.2 (0.9-1.1) H Activated Partial Thromboplast Time 70 SEC (23-33) H Iron Level 34 ug/dL (50-175) L Total Iron Binding Capacity 228 ug/dL (250-450) L Percent Iron Saturation 15 % (15-50) Unsaturated Iron Binding 194 ug/dL (112-346) Ferritin 450 NG/ML (8-388) H Carcinoembryonic Antigen Pending Vitamin B12 Level 1039 PG/ML (193-986) H Folate 9.5 NG/ML (8.6-58.9) Free Thyroxine 1.29 NG/DL (0.76-1.46) Hepatitis A IgM Antibody Pending Hepatitis B Surface Antigen Pending Hepatitis B Core IgM Antibody Pending Hepatitis C Antibody Pending Test 01/09/18 06:00 Urine Random Sodium 82 mmol/L (20-110) Microbiology Date/Time Source Procedure Growth Status 01/07/18 20:45 Nasal Nares Influenza Types A,B Antigen (RIOS) - Final Complete Objective HEAD AND NECK: No jugular venous distention. LUNGS: Coarse rhonchi. CARDIOVASCULAR: Irregular S1 and S2 with no gallop or murmur ABDOMEN: Soft. EXTREMITIES: No pitting edema. Antonio Conde MD Jan 09, 2018 10:04
--- NOTE | 2018-01-09 10:54 | Diagnostic Imaging Report ---
EXAM: US Abdomen Complete CLINICAL HISTORY: ABD PAIN TECHNIQUE: Real-time ultrasound of the abdomen (complete) with image documentation. COMPARISON: No relevant prior studies available. FINDINGS: Liver: Unremarkable. No parenchymal lesions. No intrahepatic bile duct dilation. Gallbladder: Layering gallbladder sludge versus non-shadowing stones. No gallbladder wall thickening or ductal dilatation. Negative sonographic Scott sign. Normal gallbladder wall thickness. Common bile duct: Common bile duct diameter of 6.3 mm. No stones. No dilation. Pancreas: Unremarkable as visualized. Pancreatic body and tail are obscured by bowel gas. Kidneys: Right kidney length of 10.1 cm. Left kidney length of 8.1 cm. Normal cortical thickness. No visible parenchymal lesions. No visible stones. No hydronephrosis. Spleen: Spleen diameter of 9.2 cm. Aorta: Unremarkable. Visualized portions appear unremarkable without evidence of aneurysm. Inferior vena cava: Unremarkable. Pleural space: Incidental note of pleural effusions. IMPRESSION: 1. Layering gallbladder sludge versus non-shadowing stones. No gallbladder wall thickening or ductal dilatation. Negative sonographic Scott sign. 2. Incidental note of pleural effusions.
[2018-01-09] MEDS: cefTRIAXone 1 GM in D5W 55 ML IVPB SCH (11:00)
--- NOTE | 2018-01-09 11:17 | Infectious Diseases Prog Note ---
Assessment/Plan Assessment/Plan A; Pneumonia CHF, EF=20-25% Atrial flutter Aortic stenosis Mitral regurgitation renal failure P; Continue Zithromax & Rocephin will f/u cultures Subjective ROS Limited/Unobtainable: No Constitutional: Reports: no symptoms Respiratory: Reports: dry cough Cardiovascular: Reports: no symptoms Gastrointestinal/Abdominal: Reports: no symptoms Genitourinary: Reports: no symptoms Neurologic: Reports: no symptoms Allergies: Coded Allergies: No Known Allergies (Unverified , 01/07/18) Objective Vital Signs Last 24 Hour Vital Signs Date Time Temp Pulse Resp B/P (MAP) Pulse Ox O2 Delivery O2 Flow Rate FiO2 01/09/18 10:00 82 20 125/94 (104) 99 01/09/18 09:00 80 20 115/97 (103) 99 01/09/18 09:00 89 01/09/18 09:00 115/97 01/09/18 09:00 80 117/97 01/09/18 08:40 Nasal Cannula 3.0 32 01/09/18 08:39 77 17 98 Nasal Cannula 3.0 32 01/09/18 08:39 98 Nasal Cannula 3.0 32 01/09/18 08:26 80 17 100 Nasal Cannula 3.0 32 01/09/18 08:00 Nasal Cannula 2.0 01/09/18 08:00 80 01/09/18 08:00 86 20 150/105 (120) 99 01/09/18 07:00 98.2 80 22 151/124 (133) 99 01/09/18 06:00 72 17 132/94 (107) 99 01/09/18 05:00 76 19 124/102 (109) 99 01/09/18 04:30 77 19 94/59 (71) 99 01/09/18 04:00 Nasal Cannula 2.0 01/09/18 04:00 97.9 76 19 131/85 (100) 99 01/09/18 04:00 76 01/09/18 03:30 76 19 129/93 (105) 99 01/09/18 03:00 70 19 96/65 (75) 99 01/09/18 02:30 71 19 68/41 (50) 99 01/09/18 02:00 71 19 67/45 (52) 99 01/09/18 01:30 76 25 82/62 (69) 100 11/22/18 01:16 68 16 100 Nasal Cannula 3.0 32 01/09/18 01:05 73 24 99 Nasal Cannula 3.0 32 01/09/18 01:00 72 25 85/54 (64) 100 01/09/18 00:30 71 25 85/68 (74) 100 01/09/18 00:15 67 25 91/69 (76) 100 01/09/18 00:00 Nasal Cannula 2.0 01/09/18 00:00 97.7 67 25 84/59 (67) 100 01/09/18 00:00 68 01/08/18 23:30 66 25 84/52 (63) 100 01/08/18 23:22 65 91/51 01/08/18 23:00 69 27 80/64 (69) 100 01/08/18 22:45 73 27 91/65 (74) 100 01/08/18 22:30 77 27 91/65 (74) 100 01/08/18 22:15 101 28 101/56 (71) 100 01/08/18 22:01 94 95/78 01/08/18 22:00 92 25 101/56 (71) 100 01/08/18 21:30 89 25 90/62 (71) 98 01/08/18 21:00 83 27 114/85 (95) 100 01/08/18 20:45 84 26 95/63 (74) 99 01/08/18 20:30 83 26 95/63 (74) 99 01/08/18 20:15 91 27 95/63 (74) 100 01/08/18 20:00 82 01/08/18 20:00 86 28 95/63 (74) 99 01/08/18 20:00 Nasal Cannula 2.0 01/08/18 19:59 82 18 100 Nasal Cannula 3.0 32 01/08/18 19:51 Nasal Cannula 3.0 32 01/08/18 19:51 99 Nasal Cannula 3.0 32 01/08/18 19:51 91 28 99 Nasal Cannula 3.0 32 01/08/18 19:50 96 28 Nasal Cannula 3.0 32 01/08/18 19:30 86 28 93/71 (78) 99 01/08/18 19:00 98.0 85 28 92/60 (71) 99 01/08/18 16:00 Nasal Cannula 2.0 01/08/18 16:00 87 01/08/18 15:33 99 01/08/18 12:48 124 20 98 Nasal Cannula 4.0 36 01/08/18 12:46 125 22 Nasal Cannula 4.0 36 01/08/18 12:45 125 22 98 Nasal Cannula 4.0 36 01/08/18 12:19 126 103/89 01/08/18 12:00 Nasal Cannula 2.0 01/08/18 12:00 99 Height (Feet): 5 Height (Inches): 7.00 Weight (Pounds): 175 General Appearance: no acute distress HEENT: mucous membranes moist Respiratory/Chest: lungs clear Cardiovascular: normal rate, irregularly irregular Abdomen: soft, non tender Extremities: other - edema of legs Neurologic/Psychiatric: alert, oriented x 3, responsive Microbiology Date/Time Source Procedure Growth Status 01/07/18 20:45 Nasal Nares Influenza Types A,B Antigen (RIOS) - Final Complete Laboratory Tests Test 01/08/18 11:55 01/08/18 19:10 01/09/18 03:40 01/09/18 06:00 White Blood Count 9.7 K/UL (4.8-10.8) 9.6 K/UL (4.8-10.8) Red Blood Count 4.24 M/UL (4.70-6.10) L 4.00 M/UL (4.70-6.10) L Hemoglobin 12.7 G/DL (14.2-18.0) L 12.3 G/DL (14.2-18.0) L Hematocrit 40.0 % (42.0-52.0) L 37.7 % (42.0-52.0) L Mean Corpuscular Volume 94 FL (80-99) 94 FL (80-99) Mean Corpuscular Hemoglobin 30.0 PG (27.0-31.0) 30.7 PG (27.0-31.0) Mean Corpuscular Hemoglobin Concent 31.8 G/DL (32.0-36.0) L 32.6 G/DL (32.0-36.0) Red Cell Distribution Width 14.3 % (11.6-14.8) 14.1 % (11.6-14.8) Platelet Count 143 K/UL (150-450) L 132 K/UL (150-450) L Mean Platelet Volume 9.3 FL (6.5-10.1) 9.8 FL (6.5-10.1) Neutrophils (%) (Auto) 72.3 % (45.0-75.0) 67.4 % (45.0-75.0) Lymphocytes (%) (Auto) 18.0 % (20.0-45.0) L 21.9 % (20.0-45.0) Monocytes (%) (Auto) 8.0 % (1.0-10.0) 8.7 % (1.0-10.0) Eosinophils (%) (Auto) 0.3 % (0.0-3.0) 0.9 % (0.0-3.0) Basophils (%) (Auto) 1.3 % (0.0-2.0) 1.1 % (0.0-2.0) D-Dimer 16.05 mg/L FEU (0.00-0.49) H Sodium Level 140 MMOL/L (136-145) 139 MMOL/L (136-145) Potassium Level 4.2 MMOL/L (3.5-5.1) 4.8 MMOL/L (3.5-5.1) Chloride Level 107 MMOL/L (98-107) 106 MMOL/L (98-107) Carbon Dioxide Level 20 MMOL/L (21-32) L 21 MMOL/L (21-32) Anion Gap 13 mmol/L (5-15) 12 mmol/L (5-15) Blood Urea Nitrogen 20 mg/dL (7-18) H 19 mg/dL (7-18) H Creatinine 1.5 MG/DL (0.55-1.30) H 1.6 MG/DL (0.55-1.30) H Estimat Glomerular Filtration Rate mL/min (>60) mL/min (>60) Glucose Level 135 MG/DL (74-106) H 129 MG/DL (74-106) H Hemoglobin A1c 5.3 % (4.3-6.0) Uric Acid 9.2 MG/DL (2.6-7.2) H Calcium Level 8.6 MG/DL (8.5-10.1) 8.9 MG/DL (8.5-10.1) Phosphorus Level 4.2 MG/DL (2.5-4.9) Magnesium Level 1.7 MG/DL (1.8-2.4) L Total Bilirubin 1.1 MG/DL (0.2-1.0) H 0.9 MG/DL (0.2-1.0) Direct Bilirubin 0.3 MG/DL (0.0-0.3) Gamma Glutamyl Transpeptidase 44 U/L (5-85) Aspartate Amino Transf (AST/SGOT) 35 U/L (15-37) 44 U/L (15-37) H Alanine Aminotransferase (ALT/SGPT) 28 U/L (12-78) 22 U/L (12-78) Alkaline Phosphatase 69 U/L (46-116) 61 U/L (46-116) Troponin I 2.047 ng/mL (0.000-0.056) 1.552 ng/mL (0.000-0.056) C-Reactive Protein, Quantitative 7.8 mg/dL (0.00-0.90) H Pro-B-Type Natriuretic Peptide 81922 pg/mL (0-125) H Total Protein 7.8 G/DL (6.4-8.2) 7.6 G/DL (6.4-8.2) Albumin 3.2 G/DL (3.4-5.0) L 3.1 G/DL (3.4-5.0) L Globulin 4.6 g/dL 4.5 g/dL Albumin/Globulin Ratio 0.7 (1.0-2.7) L 0.7 (1.0-2.7) L Triglycerides Level 70 MG/DL (30-150) Cholesterol Level 100 MG/DL (< 200) LDL Cholesterol 54 mg/dL (<100) HDL Cholesterol 41 MG/DL (40-60) Cholesterol/HDL Ratio 2.4 (3.3-4.4) L Thyroid Stimulating Hormone (TSH) 1.681 uiU/mL (0.358-3.740) HIV (1&2) Antibody Rapid Negative (NEGATIVE) Legionella pneumophila Group 1 Ab Pending Legionella pneumophilia IgM Group 1 Pending Mycoplasma pneumoniae IgG Antibody Pending Mycoplasma pneumoniae IgM Ab Titer Pending Reticulocyte Count Pending Prothrombin Time 12.1 SEC (9.30-11.50) H Prothromb Time International Ratio 1.2 (0.9-1.1) H Activated Partial Thromboplast Time 70 SEC (23-33) H Iron Level 34 ug/dL (50-175) L Total Iron Binding Capacity 228 ug/dL (250-450) L Percent Iron Saturation 15 % (15-50) Unsaturated Iron Binding 194 ug/dL (112-346) Ferritin 450 NG/ML (8-388) H Carcinoembryonic Antigen Pending Vitamin B12 Level 1039 PG/ML (193-986) H Folate 9.5 NG/ML (8.6-58.9) Free Thyroxine 1.29 NG/DL (0.76-1.46) Hepatitis A IgM Antibody Pending Hepatitis B Surface Antigen Pending Hepatitis B Core IgM Antibody Pending Hepatitis C Antibody Pending Urine Random Sodium 82 mmol/L (20-110) Current Medications Medications (Trade) Dose Ordered Sig/Fritz Route PRN Reason Start Time Stop Time Status Last Admin Dose Admin Acetaminophen (Tylenol) 650 mg Q4HR PRN ORAL For Pain 01/08/18 05:45 02/07/18 05:44 Apixaban (Eliquis) 5 mg BID ORAL 01/09/18 18:00 02/08/18 17:59 Azithromycin (Zithromax) 250 mg DAILY ORAL 01/09/18 09:00 01/16/18 08:59 01/09/18 09:00 Carvedilol (Coreg) 25 mg EVERY 12 HOURS ORAL 01/09/18 21:00 02/08/18 20:59 Ceftriaxone Sodium 1 gm/ Dextrose 55 ml @ 110 mls/hr Q24H IVPB 01/08/18 11:00 01/15/18 10:59 01/08/18 11:00 Clonidine HCl (Catapres Tab) 0.1 mg Q4H PRN ORAL SBP>170 01/09/18 10:09 02/08/18 10:08 Dextrose/Sodium Chloride 1,000 ml @ 50 mls/hr Q20H IV 01/08/18 09:51 02/07/18 09:50 01/09/18 05:15 Digoxin (Lanoxin) 0.25 mg DAILY ORAL 01/09/18 09:00 02/08/18 08:59 01/09/18 09:00 Furosemide (Lasix) 40 mg EVERY 12 HOURS IV 01/08/18 21:00 02/07/18 20:59 01/09/18 09:00 Guaifenesin (Mucinex ER) 600 mg TWICE A DAY ORAL 01/08/18 18:00 02/07/18 17:59 01/09/18 09:00 Guaifenesin (Robitussin) 100 mg Q4H PRN ORAL For Cough 01/08/18 09:30 02/07/18 09:29 Ipratropium [place] (Atrovent) 500 mcg Q4H PRN N Shortness of Breath 01/08/18 09:30 01/13/18 09:29 Ipratropium [place] (Atrovent) 500 mcg Q6HRT HHN 01/08/18 13:00 01/13/18 12:59 01/09/18 08:26 Lisinopril (Zestril) 10 mg DAILY ORAL 01/09/18 09:00 02/08/18 08:59 Pantoprazole (Protonix) 40 mg DAILY ORAL 01/08/18 09:39 02/07/18 09:38 01/09/18 09:00 Alexis Rivera MD Jan 09, 2018 11:17
--- NOTE | 2018-01-09 12:09 | Nephrology Progress Note ---
Assessment/Plan Problem List: (1) Renal insufficiency (2) Atrial fibrillation (3) Anemia (4) NSTEMI (non-ST elevated myocardial infarction) (5) Cardiomyopathy Assessment Renal failure ? chronic Atrial Flutter NSTMI, elevated Troponin cardiomyopathy Plan cardiazem drip- 2 D Echo check TSH Urine studies monitor renal parameters per orders per cardio Subjective ROS Limited/Unobtainable: No Constitutional: Reports: malaise Objective Objective Last 24 Hour Vital Signs Date Time Temp Pulse Resp B/P (MAP) Pulse Ox O2 Delivery O2 Flow Rate FiO2 01/09/18 10:00 82 20 125/94 (104) 99 01/09/18 09:00 80 20 115/97 (103) 99 01/09/18 09:00 89 01/09/18 09:00 115/97 01/09/18 09:00 80 117/97 01/09/18 08:40 Nasal Cannula 3.0 32 01/09/18 08:39 77 17 98 Nasal Cannula 3.0 32 01/09/18 08:39 98 Nasal Cannula 3.0 32 01/09/18 08:26 80 17 100 Nasal Cannula 3.0 32 01/09/18 08:00 Nasal Cannula 2.0 01/09/18 08:00 80 01/09/18 08:00 86 20 150/105 (120) 99 01/09/18 07:00 98.2 80 22 151/124 (133) 99 01/09/18 06:00 72 17 132/94 (107) 99 01/09/18 05:00 76 19 124/102 (109) 99 01/09/18 04:30 77 19 94/59 (71) 99 01/09/18 04:00 Nasal Cannula 2.0 01/09/18 04:00 97.9 76 19 131/85 (100) 99 01/09/18 04:00 76 01/09/18 03:30 76 19 129/93 (105) 99 01/09/18 03:00 70 19 96/65 (75) 99 01/09/18 02:30 71 19 68/41 (50) 99 01/09/18 02:00 71 19 67/45 (52) 99 01/09/18 01:30 76 25 82/62 (69) 100 01/09/18 01:16 68 16 100 Nasal Cannula 3.0 32 01/09/18 01:05 73 24 99 Nasal Cannula 3.0 32 01/09/18 01:00 72 25 85/54 (64) 100 01/09/18 00:30 71 25 85/68 (74) 100 01/09/18 00:15 67 25 91/69 (76) 100 01/09/18 00:00 Nasal Cannula 2.0 01/09/18 00:00 97.7 67 25 84/59 (67) 100 01/09/18 00:00 68 01/08/18 23:30 66 25 84/52 (63) 100 01/08/18 23:22 65 91/51 01/08/18 23:00 69 27 80/64 (69) 100 01/08/18 22:45 73 27 91/65 (74) 100 01/08/18 22:30 77 27 91/65 (74) 100 01/08/18 22:15 101 28 101/56 (71) 100 01/08/18 22:01 94 95/78 01/08/18 22:00 92 25 101/56 (71) 100 01/08/18 21:30 89 25 90/62 (71) 98 01/08/18 21:00 83 27 114/85 (95) 100 01/08/18 20:45 84 26 95/63 (74) 99 01/08/18 20:30 83 26 95/63 (74) 99 01/08/18 20:15 91 27 95/63 (74) 100 01/08/18 20:00 82 01/08/18 20:00 86 28 95/63 (74) 99 01/08/18 20:00 Nasal Cannula 2.0 01/08/18 19:59 82 18 100 Nasal Cannula 3.0 32 01/08/18 19:51 Nasal Cannula 3.0 32 01/08/18 19:51 99 Nasal Cannula 3.0 32 01/08/18 19:51 91 28 99 Nasal Cannula 3.0 32 01/08/18 19:50 96 28 Nasal Cannula 3.0 32 01/08/18 19:30 86 28 93/71 (78) 99 01/08/18 19:00 98.0 85 28 92/60 (71) 99 01/08/18 16:00 Nasal Cannula 2.0 01/08/18 16:00 87 01/08/18 15:33 99 01/08/18 12:48 124 20 98 Nasal Cannula 4.0 36 01/08/18 12:46 125 22 Nasal Cannula 4.0 36 01/08/18 12:45 125 22 98 Nasal Cannula 4.0 36 01/08/18 12:19 126 103/89 Intake and Output 01/08/18 01/09/18 18:59 06:59 Intake Total 540 ml 1049.016 ml Output Total 0 ml 800 ml Balance 540 ml 249.016 ml Intake Oral 200 ml IV Total 540 ml 849.016 ml Output Urine Total 0 ml 800 ml # Voids 1 Laboratory Tests 01/08/18 19:10: Troponin I 1.552H 01/09/18 03:40: White Blood Count 9.6, Red Blood Count 4.00L, Hemoglobin 12.3L, Hematocrit 37.7L , Mean Corpuscular Volume 94, Mean Corpuscular Hemoglobin 30.7, Mean Corpuscular Hemoglobin Concent 32.6, Red Cell Distribution Width 14.1, Platelet Count 132L, Mean Platelet Volume 9.8, Neutrophils (%) (Auto) 67.4, Lymphocytes ( %) (Auto) 21.9, Monocytes (%) (Auto) 8.7, Eosinophils (%) (Auto) 0.9, Basophils (%) (Auto) 1.1, Reticulocyte Count 2.1H, Prothrombin Time 12.1H, Prothromb Time International Ratio 1.2H, Activated Partial Thromboplast Time 70H, Sodium Level 139, Potassium Level 4.8, Chloride Level 106, Carbon Dioxide Level 21, Anion Gap 12, Blood Urea Nitrogen 19H, Creatinine 1.6H, Estimat Glomerular Filtration Rate , Glucose Level 129H, Calcium Level 8.9, Iron Level 34L, Total Iron Binding Capacity 228L, Percent Iron Saturation 15, Unsaturated Iron Binding 194 , Ferritin 450H, Total Bilirubin 0.9, Aspartate Amino Transf (AST/SGOT) 44H, Alanine Aminotransferase (ALT/SGPT) 22, Alkaline Phosphatase 61, Total Protein 7.6, Albumin 3.1L, Globulin 4.5, Albumin/Globulin Ratio 0.7L, Carcinoembryonic Antigen [Pending], Vitamin B12 Level 1039H, Folate 9.5, Free Thyroxine 1.29, Hepatitis A IgM Antibody [Pending], Hepatitis B Surface Antigen [Pending], Hepatitis B Core IgM Antibody [Pending], Hepatitis C Antibody [Pending] 01/09/18 06:00: Urine Random Sodium 82 Height (Feet): 5 Height (Inches): 7.00 Weight (Pounds): 175 Cardiovascular: arrhythmia Respiratory/Chest: decreased breath sounds Abdomen: distended Tu Garcia MD Jan 09, 2018 12:09
--- NOTE | 2018-01-09 13:11 | General Progress Note ---
Assessment/Plan Problem List: (1) Renal insufficiency ICD Codes: N28.9 - Disorder of kidney and ureter, unspecified SNOMED: 809653595, 424973198 (2) Atrial fibrillation ICD Codes: I48.91 - Unspecified atrial fibrillation SNOMED: 38236386 (3) Anemia ICD Codes: D64.9 - Anemia, unspecified SNOMED: 168043001 (4) NSTEMI (non-ST elevated myocardial infarction) ICD Codes: I21.4 - Non-ST elevation (NSTEMI) myocardial infarction SNOMED: 211738809, 107057902 (5) Cardiomyopathy ICD Codes: I42.9 - Cardiomyopathy, unspecified SNOMED: 23366273 Status: progressing Assessment/Plan afebrile a fib rate is improving no cp no sob improving Subjective ROS Limited/Unobtainable: Yes Allergies: Coded Allergies: No Known Allergies (Unverified , 01/07/18) Objective Last 24 Hour Vital Signs Date Time Temp Pulse Resp B/P (MAP) Pulse Ox O2 Delivery O2 Flow Rate FiO2 01/09/18 13:00 90 22 133/80 (97) 99 01/09/18 12:00 Nasal Cannula 2.0 01/09/18 12:00 84 01/09/18 12:00 82 22 139/84 (102) 99 01/09/18 11:00 98.4 77 22 130/80 (97) 99 01/09/18 10:00 82 20 125/94 (104) 99 01/09/18 09:00 80 20 115/97 (103) 99 01/09/18 09:00 89 01/09/18 09:00 115/97 01/09/18 09:00 80 117/97 01/09/18 08:40 Nasal Cannula 3.0 32 01/09/18 08:39 77 17 98 Nasal Cannula 3.0 32 01/09/18 08:39 98 Nasal Cannula 3.0 32 01/09/18 08:26 80 17 100 Nasal Cannula 3.0 32 01/09/18 08:00 Nasal Cannula 2.0 01/09/18 08:00 80 01/09/18 08:00 86 20 150/105 (120) 99 01/09/18 07:00 98.2 80 22 151/124 (133) 99 01/09/18 06:00 72 17 132/94 (107) 99 11/22/18 05:00 76 19 124/102 (109) 99 01/09/18 04:30 77 19 94/59 (71) 99 01/09/18 04:00 Nasal Cannula 2.0 01/09/18 04:00 97.9 76 19 131/85 (100) 99 01/09/18 04:00 76 01/09/18 03:30 76 19 129/93 (105) 99 01/09/18 03:00 70 19 96/65 (75) 99 01/09/18 02:30 71 19 68/41 (50) 99 01/09/18 02:00 71 19 67/45 (52) 99 01/09/18 01:30 76 25 82/62 (69) 100 01/09/18 01:16 68 16 100 Nasal Cannula 3.0 32 01/09/18 01:05 73 24 99 Nasal Cannula 3.0 32 01/09/18 01:00 72 25 85/54 (64) 100 01/09/18 00:30 71 25 85/68 (74) 100 01/09/18 00:15 67 25 91/69 (76) 100 01/09/18 00:00 Nasal Cannula 2.0 01/09/18 00:00 97.7 67 25 84/59 (67) 100 01/09/18 00:00 68 01/08/18 23:30 66 25 84/52 (63) 100 01/08/18 23:22 65 91/51 01/08/18 23:00 69 27 80/64 (69) 100 01/08/18 22:45 73 27 91/65 (74) 100 01/08/18 22:30 77 27 91/65 (74) 100 01/08/18 22:15 101 28 101/56 (71) 100 01/08/18 22:01 94 95/78 01/08/18 22:00 92 25 101/56 (71) 100 01/08/18 21:30 89 25 90/62 (71) 98 01/08/18 21:00 83 27 114/85 (95) 100 01/08/18 20:45 84 26 95/63 (74) 99 01/08/18 20:30 83 26 95/63 (74) 99 01/08/18 20:15 91 27 95/63 (74) 100 01/08/18 20:00 82 01/08/18 20:00 86 28 95/63 (74) 99 01/08/18 20:00 Nasal Cannula 2.0 01/08/18 19:59 82 18 100 Nasal Cannula 3.0 32 01/08/18 19:51 Nasal Cannula 3.0 32 01/08/18 19:51 99 Nasal Cannula 3.0 32 01/08/18 19:51 91 28 99 Nasal Cannula 3.0 32 01/08/18 19:50 96 28 Nasal Cannula 3.0 32 01/08/18 19:30 86 28 93/71 (78) 99 01/08/18 19:00 98.0 85 28 92/60 (71) 99 01/08/18 16:00 Nasal Cannula 2.0 01/08/18 16:00 87 01/08/18 15:33 99 Intake and Output 01/08/18 01/09/18 18:59 06:59 Intake Total 540 ml 1049.016 ml Output Total 0 ml 800 ml Balance 540 ml 249.016 ml Intake Oral 200 ml IV Total 540 ml 849.016 ml Output Urine Total 0 ml 800 ml # Voids 1 Laboratory Tests 01/08/18 19:10: Troponin I 1.552H 01/09/18 03:40: White Blood Count 9.6, Red Blood Count 4.00L, Hemoglobin 12.3L, Hematocrit 37.7L , Mean Corpuscular Volume 94, Mean Corpuscular Hemoglobin 30.7, Mean Corpuscular Hemoglobin Concent 32.6, Red Cell Distribution Width 14.1, Platelet Count 132L, Mean Platelet Volume 9.8, Neutrophils (%) (Auto) 67.4, Lymphocytes ( %) (Auto) 21.9, Monocytes (%) (Auto) 8.7, Eosinophils (%) (Auto) 0.9, Basophils (%) (Auto) 1.1, Reticulocyte Count 2.1H, Prothrombin Time 12.1H, Prothromb Time International Ratio 1.2H, Activated Partial Thromboplast Time 70H, Sodium Level 139, Potassium Level 4.8, Chloride Level 106, Carbon Dioxide Level 21, Anion Gap 12, Blood Urea Nitrogen 19H, Creatinine 1.6H, Estimat Glomerular Filtration Rate , Glucose Level 129H, Calcium Level 8.9, Iron Level 34L, Total Iron Binding Capacity 228L, Percent Iron Saturation 15, Unsaturated Iron Binding 194 , Ferritin 450H, Total Bilirubin 0.9, Aspartate Amino Transf (AST/SGOT) 44H, Alanine Aminotransferase (ALT/SGPT) 22, Alkaline Phosphatase 61, Total Protein 7.6, Albumin 3.1L, Globulin 4.5, Albumin/Globulin Ratio 0.7L, Carcinoembryonic Antigen [Pending], Vitamin B12 Level 1039H, Folate 9.5, Free Thyroxine 1.29, Hepatitis A IgM Antibody [Pending], Hepatitis B Surface Antigen [Pending], Hepatitis B Core IgM Antibody [Pending], Hepatitis C Antibody [Pending] 01/09/18 06:00: Urine Random Sodium 82 Height (Feet): 5 Height (Inches): 7.00 Weight (Pounds): 175 EENT: PERRL/EOMI Cardiovascular: normal rate Respiratory/Chest: lungs clear Abdomen: soft Inocencia Watt MD Jan 09, 2018 13:11
[2018-01-09] MEDS ORDERED: Eliquis 2.5mg tablet ORAL SCH (18:00)
--- NOTE | 2018-01-09 18:08 | Consultation ---
Consult Note Consult Note HEMATOLOGY-ONCOLOGY CONSULTATION REFERRING PHYSICIAN: Inocencia Watt REASON FOR CONSULT: Thrombocytopenia, anemia DATE OF CONSULT: 01/09/2018 HISTORY OF PRESENTING ILLNESS: This is a 77-year-old gentleman with history of DVT, who came in with cough along with shortness of breath, some congestion, and sore throat. He was found to be having atrial flutter with rapid rate. He has been admitted to the ICU. Hematology services consulted for the evaluation of thrombocytopenia and anemia. Labs have been reviewed. PAST MEDICAL HISTORY: History of DVT. SOCIAL HISTORY: He does not smoke, drink, or use drugs. FAMILY HISTORY: Noncontributory. REVIEW OF SYSTEMS: RESPIRATORY: No fever or chills. He does have cough. He has shortness of breath. No chest pain. CARDIAC: No chest pain. No palpitation. No dizziness. No syncope. GASTROINTESTINAL: No nausea. No vomiting. No abdominal pain or diarrhea. MEDICATIONS: As an inpatient, he is on azithromycin, guaifenesin, ipratropium, ceftriaxone, Protonix, Atrovent, heparin, diltiazem, Tylenol. ALLERGIES: No known drug allergies. PHYSICAL EXAMINATION: VITAL SIGNS: Have been reviewed. HEENT: Pupils equally reactive to light and accommodation. Mouth appears clean without thrush. NECK: Supple. No adenopathy. No JVD. CARDIOVASCULAR: Regular rate and rhythm. No murmurs. LUNGS: Clear to auscultation bilaterally. No crackles. No wheezes. ABDOMEN: Soft and nontender. No organomegaly. EXTREMITIES: No cyanosis, no clubbing, no edema. LABS: wbc 9.6 hgb 12.3 plt 132 ASSESSMENT AND RECOMMENDATIONS # Thrombocytopenia - potential causes multifactorial, evaluate liver and viral etiologies to begin, also could be related to underlying medications patient has received. --> Hep panel and HIV ordered --> US abd to evaluate for cirrhosis and hsm ordered --> Peripheral smear ordered to evaluate for blasts /schistocytes --> abx and other meds have been reviewed --> ok for ppx if plt >50k w/ wither heparin or lovenox --> Transfuse if Plt < 20k and fever, or if Plt < 10k without fever # Anemia of chronic disease due to underlying chronic medical issues, multifactorial. --> Anemia w/u has been reviewed. Ferritin at 450. --> WIll trend CBC as needed. --> hgb goal >7. Transfuse prn. --> No evidence of hemolysis noted. # PNA. CXR has been reviewed. --> Pt on abx # History of DVT. # Myocardial infarction. # Atrial flutter with rapid ventricular response. GREATLY APPRECIATE CONSULTATION Bruce Loya MD Jan 09, 2018 18:08
--- NOTE | 2018-01-09 19:36 | Pulmonolgy Critical Care Note ---
Critical Care - Asmt/Plan Assessment/Plan: 1. Respiratory illness, URI/tracheobronchitis versus early pneumonia. 2. Systemic inflammatory response syndrome. 3. Atrial flutter with rapid ventricular response. 4. [id number] [place], likely demand ischemia in the setting of rapid atrial flutter. 5. 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 6. Remote history of DVT in 2013, off anticoagulation prior to this admission. 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 Discussed with: nurses Critical Care - Objective Last 24 Hour Vital Signs Date Time Temp Pulse Resp B/P (MAP) Pulse Ox O2 Delivery O2 Flow Rate FiO2 01/09/18 18:00 88 20 128/74 (92) 98 01/09/18 17:00 98.6 78 22 118/77 (91) 99 01/09/18 16:00 93 01/09/18 16:00 83 27 92/65 (74) 95 01/09/18 16:00 Nasal Cannula 2.0 01/09/18 15:00 87 22 126/106 (113) 99 01/09/18 14:51 85 22 100 Room Air 21 01/09/18 14:40 99 22 95 Room Air 21 01/09/18 14:00 88 22 135/82 (99) 99 01/09/18 13:00 90 22 133/80 (97) 99 01/09/18 12:00 Nasal Cannula 2.0 01/09/18 12:00 84 01/09/18 12:00 82 22 139/84 (102) 99 01/09/18 11:00 98.4 77 22 130/80 (97) 99 01/09/18 10:00 82 20 125/94 (104) 99 01/09/18 09:00 80 20 115/97 (103) 99 01/09/18 09:00 89 01/09/18 09:00 115/97 01/09/18 09:00 80 117/97 01/09/18 08:40 Nasal Cannula 3.0 32 01/09/18 08:39 77 17 98 Nasal Cannula 3.0 32 01/09/18 08:39 98 Nasal Cannula 3.0 32 01/09/18 08:26 80 17 100 Nasal Cannula 3.0 32 01/09/18 08:00 Nasal Cannula 2.0 01/09/18 08:00 80 01/09/18 08:00 86 20 150/105 (120) 99 01/09/18 07:00 98.2 80 22 151/124 (133) 99 01/09/18 06:00 72 17 132/94 (107) 99 01/09/18 05:00 76 19 124/102 (109) 99 01/09/18 04:30 77 19 94/59 (71) 99 01/09/18 04:00 Nasal Cannula 2.0 01/09/18 04:00 97.9 76 19 131/85 (100) 99 01/09/18 04:00 76 01/09/18 03:30 76 19 129/93 (105) 99 01/09/18 03:00 70 19 96/65 (75) 99 01/09/18 02:30 71 19 68/41 (50) 99 01/09/18 02:00 71 19 67/45 (52) 99 01/09/18 01:30 76 25 82/62 (69) 100 01/09/18 01:16 68 16 100 Nasal Cannula 3.0 32 01/09/18 01:05 73 24 99 Nasal Cannula 3.0 32 01/09/18 01:00 72 25 85/54 (64) 100 01/09/18 00:30 71 25 85/68 (74) 100 01/09/18 00:15 67 25 91/69 (76) 100 01/09/18 00:00 Nasal Cannula 2.0 01/09/18 00:00 97.7 67 25 84/59 (67) 100 01/09/18 00:00 68 01/08/18 23:30 66 25 84/52 (63) 100 01/08/18 23:22 65 91/51 01/08/18 23:00 69 27 80/64 (69) 100 01/08/18 22:45 73 27 91/65 (74) 100 01/08/18 22:30 77 27 91/65 (74) 100 01/08/18 22:15 101 28 101/56 (71) 100 01/08/18 22:01 94 95/78 01/08/18 22:00 92 25 101/56 (71) 100 01/08/18 21:30 89 25 90/62 (71) 98 01/08/18 21:00 83 27 114/85 (95) 100 01/08/18 20:45 84 26 95/63 (74) 99 01/08/18 20:30 83 26 95/63 (74) 99 01/08/18 20:15 91 27 95/63 (74) 100 01/08/18 20:00 82 01/08/18 20:00 86 28 95/63 (74) 99 01/08/18 20:00 Nasal Cannula 2.0 01/08/18 19:59 82 18 100 Nasal Cannula 3.0 32 01/08/18 19:51 Nasal Cannula 3.0 32 01/08/18 19:51 99 Nasal Cannula 3.0 32 01/08/18 19:51 91 28 99 Nasal Cannula 3.0 32 01/08/18 19:50 96 28 Nasal Cannula 3.0 32 Status: awake Condition: improving Lungs: clear Heart: HR/BP stable, irregular Abdomen: soft, non-tender Extremities: no C/C/E, edema Micro: Microbiology Date/Time Source Procedure Growth Status 01/07/18 20:45 Nasal Nares Influenza Types A,B Antigen (RIOS) - Final Complete Blood Sugars: BS controlled Critical Care - Subjective ROS Limited/Unobtainable: No Condition: improving EKG Rhythm: Atrial Fibrillation FI02: 21 Sputum Amount: None I&O: Intake and Output 01/08/18 01/09/18 18:59 06:59 Intake Total 540 ml 1049.016 ml Output Total 0 ml 800 ml Balance 540 ml 249.016 ml Intake Oral 200 ml IV Total 540 ml 849.016 ml Output Urine Total 0 ml 800 ml # Voids 1 Subjective: doing well today no cp nv or bleeding tolerating po no dizziness on RA oob to chair bp stable Labs: Current Medications Medications (Trade) Dose Ordered Sig/Fritz Route PRN Reason Start Time Stop Time Status Last Admin Dose Admin Acetaminophen (Tylenol) 650 mg Q4HR PRN ORAL For Pain 01/08/18 05:45 02/07/18 05:44 Apixaban (Eliquis) 5 mg BID ORAL 01/09/18 18:00 02/08/18 17:59 01/09/18 18:26 Azithromycin (Zithromax) 250 mg DAILY ORAL 01/09/18 09:00 01/16/18 08:59 01/09/18 09:00 Carvedilol (Coreg) 25 mg EVERY 12 HOURS ORAL 01/09/18 21:00 02/08/18 20:59 Ceftriaxone Sodium 1 gm/ Dextrose 55 ml @ 110 mls/hr Q24H IVPB 01/08/18 11:00 01/15/18 10:59 01/09/18 11:00 Clonidine HCl (Catapres Tab) 0.1 mg Q4H PRN ORAL SBP>170 01/09/18 10:09 02/08/18 10:08 Digoxin (Lanoxin) 0.25 mg DAILY ORAL 01/09/18 09:00 02/08/18 08:59 01/09/18 09:00 Furosemide (Lasix) 40 mg EVERY 12 HOURS IV 01/08/18 21:00 02/07/18 20:59 01/09/18 09:00 Guaifenesin (Mucinex ER) 600 mg TWICE A DAY ORAL 01/08/18 18:00 02/07/18 17:59 01/09/18 18:26 Guaifenesin (Robitussin) 100 mg Q4H PRN ORAL For Cough 01/08/18 09:30 02/07/18 09:29 Ipratropium [place] (Atrovent) 500 mcg Q4H PRN HHN Shortness of Breath 01/08/18 09:30 01/13/18 09:29 Ipratropium [place] (Atrovent) 500 mcg Q6HRT HHN 01/08/18 13:00 01/13/18 12:59 01/09/18 14:40 Lisinopril (Zestril) 10 mg DAILY ORAL 01/09/18 09:00 02/08/18 08:59 Pantoprazole (Protonix) 40 mg DAILY ORAL 01/08/18 09:39 02/07/18 09:38 01/09/18 09:00 Laboratory Tests Test 01/09/18 03:40 01/09/18 06:00 White Blood Count 9.6 K/UL (4.8-10.8) Red Blood Count 4.00 M/UL (4.70-6.10) L Hemoglobin 12.3 G/DL (14.2-18.0) L Hematocrit 37.7 % (42.0-52.0) L Mean Corpuscular Volume 94 FL (80-99) Mean Corpuscular Hemoglobin 30.7 PG (27.0-31.0) Mean Corpuscular Hemoglobin Concent 32.6 G/DL (32.0-36.0) Red Cell Distribution Width 14.1 % (11.6-14.8) Platelet Count 132 K/UL (150-450) L Mean Platelet Volume 9.8 FL (6.5-10.1) Neutrophils (%) (Auto) 67.4 % (45.0-75.0) Lymphocytes (%) (Auto) 21.9 % (20.0-45.0) Monocytes (%) (Auto) 8.7 % (1.0-10.0) Eosinophils (%) (Auto) 0.9 % (0.0-3.0) Basophils (%) (Auto) 1.1 % (0.0-2.0) Reticulocyte Count 2.1 % (0.0-2.0) H Prothrombin Time 12.1 SEC (9.30-11.50) H Prothromb Time International Ratio 1.2 (0.9-1.1) H Activated Partial Thromboplast Time 70 SEC (23-33) H Sodium Level 139 MMOL/L (136-145) Potassium Level 4.8 MMOL/L (3.5-5.1) Chloride Level 106 MMOL/L (98-107) Carbon Dioxide Level 21 MMOL/L (21-32) Anion Gap 12 mmol/L (5-15) Blood Urea Nitrogen 19 mg/dL (7-18) H Creatinine 1.6 MG/DL (0.55-1.30) H Estimat Glomerular Filtration Rate mL/min (>60) Glucose Level 129 MG/DL (74-106) H Calcium Level 8.9 MG/DL (8.5-10.1) Iron Level 34 ug/dL (50-175) L Total Iron Binding Capacity 228 ug/dL (250-450) L Percent Iron Saturation 15 % (15-50) Unsaturated Iron Binding 194 ug/dL (112-346) Ferritin 450 NG/ML (8-388) H Total Bilirubin 0.9 MG/DL (0.2-1.0) Aspartate Amino Transf (AST/SGOT) 44 U/L (15-37) H Alanine Aminotransferase (ALT/SGPT) 22 U/L (12-78) Alkaline Phosphatase 61 U/L (46-116) Total Protein 7.6 G/DL (6.4-8.2) Albumin 3.1 G/DL (3.4-5.0) L Globulin 4.5 g/dL Albumin/Globulin Ratio 0.7 (1.0-2.7) L Carcinoembryonic Antigen Pending Vitamin B12 Level 1039 PG/ML (193-986) H Folate 9.5 NG/ML (8.6-58.9) Free Thyroxine 1.29 NG/DL (0.76-1.46) Hepatitis A IgM Antibody Pending Hepatitis B Surface Antigen Pending Hepatitis B Core IgM Antibody Pending Hepatitis C Antibody Pending Urine Random Sodium 82 mmol/L (20-110) Nicole Vazquez DO Jan 09, 2018 19:36
[2018-01-09] MEDS ORDERED: Carvedilol 25mg Tab ORAL SCH (21:00)
[2018-01-10] VITALS (12 sets, daily range): BP systolic 88–126; BP diastolic 52–105
[2018-01-10] MEDS: Ipratropium 0.02% Inh Soln 2.5ml UD HHN SCH ×4 (01:12→18:54)
[2018-01-10 05:06] LABS: BASOPHILS % (AUTO) 1.6 % (0.0-2.0); HEMATOCRIT 38.8 % (42.0-52.0); HEMOGLOBIN 12.6 G/DL (14.2-18.0); MEAN CORPUSCULAR VOLUME 95 FL (80-99); MONOCYTES % (AUTO) 7.9 % (1.0-10.0); NEUTROPHILS % (AUTO) 62.6 % (45.0-75.0); PLATELET COUNT 127 K/UL (150-450); RED CELL DISTRIBUTION WIDTH 14.3 % (11.6-14.8); WHITE BLOOD COUNT 8.3 K/UL (4.8-10.8)
[2018-01-10 05:27] LABS: ANION GAP 11 mmol/L (5-15); BLOOD UREA NITROGEN 21 mg/dL (7-18); CALCIUM 8.9 MG/DL (8.5-10.1); CARBON DIOXIDE 23 MMOL/L (21-32); CHLORIDE 107 MMOL/L (98-107); CREATININE 1.7 MG/DL (0.55-1.30); POTASSIUM 4.1 MMOL/L (3.5-5.1); SODIUM 140 MMOL/L (136-145)
[2018-01-10] MEDS ORDERED: guaiFENesin 100mg/5ml Liq ud ORAL PRN (07:30)
[2018-01-10] MEDS ORDERED: Ipratropium 0.02% Inh Soln 2.5ml UD HHN PRN (07:30)
[2018-01-10] MEDS ORDERED: Lisinopril 10mg tab ORAL SCH (09:00)
[2018-01-10] MEDS: Carvedilol 25mg Tab ORAL SCH ×2 (09:06→20:46)
[2018-01-10] MEDS: Azithromycin 250mg tab ORAL SCH (09:07)
[2018-01-10] MEDS: guaiFENesin ER 600mg tab ORAL SCH ×2 (09:07→17:30)
[2018-01-10] MEDS: Eliquis 2.5mg tablet ORAL SCH ×2 (09:08→17:30)
--- NOTE | 2018-01-10 09:56 | Nephrology Progress Note ---
Assessment/Plan Problem List: (1) Renal insufficiency (2) Atrial fibrillation (3) Anemia (4) NSTEMI (non-ST elevated myocardial infarction) (5) Cardiomyopathy Assessment Renal failure ? chronic Atrial Flutter NSTMI, elevated Troponin cardiomyopathy Plan Lasix now PO 2 D Echo low Ej Fx check TSH Urine studies monitor renal parameters per orders per cardio Subjective ROS Limited/Unobtainable: No Objective Objective Last 24 Hour Vital Signs Date Time Temp Pulse Resp B/P (MAP) Pulse Ox O2 Delivery O2 Flow Rate FiO2 01/10/18 09:08 91/62 01/10/18 09:07 72 01/10/18 09:06 72 91/62 01/10/18 08:10 98 Room Air 21 01/10/18 08:10 Room Air 21 01/10/18 08:10 Room Air 21 01/10/18 08:10 Room Air 21 01/10/18 08:00 98.1 72 20 91/62 (72) 94 01/10/18 06:20 97.6 84 20 93/59 (70) 95 01/10/18 06:01 85 16 100/63 (75) 98 01/10/18 05:00 81 16 122/93 (103) 98 01/10/18 04:00 Nasal Cannula 2.0 01/10/18 04:00 97.6 85 16 94/70 (78) 98 01/10/18 04:00 85 01/10/18 03:00 75 16 88/58 (68) 96 01/10/18 02:00 77 18 88/60 (69) 96 01/10/18 01:22 73 20 99 Room Air 21 01/10/18 01:12 87 19 96 Room Air 21 01/10/18 01:00 78 15 98/52 (67) 99 01/10/18 00:04 88 01/10/18 00:03 Nasal Cannula 2.0 01/10/18 00:00 97.5 79 20 126/105 (112) 100 01/09/18 23:00 79 23 112/65 (81) 98 01/09/18 22:00 77 15 111/68 (82) 97 01/09/18 21:00 93 11 90/63 (72) 100 01/09/18 20:42 95 90/63 01/09/18 20:02 93 19 100 Room Air 21 01/09/18 20:00 97.6 95 11 90/63 (72) 100 01/09/18 20:00 Nasal Cannula 2.0 01/09/18 20:00 95 01/09/18 19:52 Room Air 21 01/09/18 19:52 91 20 97 Room Air 21 01/09/18 19:52 97 Room Air 21 01/09/18 19:00 94 24 92/62 (72) 99 01/09/18 18:00 88 20 128/74 (92) 98 01/09/18 17:00 98.6 78 22 118/77 (91) 99 01/09/18 16:00 93 01/09/18 16:00 83 27 92/65 (74) 95 01/09/18 16:00 Nasal Cannula 2.0 01/09/18 15:00 87 22 126/106 (113) 99 01/09/18 14:51 85 22 100 Room Air 21 01/09/18 14:40 99 22 95 Room Air 21 01/09/18 14:00 88 22 135/82 (99) 99 01/09/18 13:00 90 22 133/80 (97) 99 01/09/18 12:00 Nasal Cannula 2.0 01/09/18 12:00 84 01/09/18 12:00 82 22 139/84 (102) 99 01/09/18 11:00 98.4 77 22 130/80 (97) 99 01/09/18 10:00 82 20 125/94 (104) 99 Intake and Output 01/09/18 01/10/18 19:00 07:00 Intake Total 0 ml Output Total 1090 ml 600 ml Balance -1090 ml -600 ml Intake Oral 0 ml Output Urine Total 1090 ml 600 ml # Bowel Movements 2 Laboratory Tests 01/10/18 03:50: White Blood Count 8.3, Red Blood Count 4.10L, Hemoglobin 12.6L, Hematocrit 38.8L , Mean Corpuscular Volume 95, Mean Corpuscular Hemoglobin 30.7, Mean Corpuscular Hemoglobin Concent 32.5, Red Cell Distribution Width 14.3, Platelet Count 127L, Mean Platelet Volume 9.5, Neutrophils (%) (Auto) 62.6, Lymphocytes ( %) (Auto) 25.0, Monocytes (%) (Auto) 7.9, Eosinophils (%) (Auto) 3.0, Basophils (%) (Auto) 1.6, Activated Partial Thromboplast Time 27, Sodium Level 140, Potassium Level 4.1, Chloride Level 107, Carbon Dioxide Level 23, Anion Gap 11, Blood Urea Nitrogen 21H, Creatinine 1.7H, Estimat Glomerular Filtration Rate , Glucose Level 101, Calcium Level 8.9 Height (Feet): 5 Height (Inches): 7.00 Weight (Pounds): 169 General Appearance: no apparent distress Cardiovascular: normal rate Tu Garcia MD Jan 10, 2018 09:56
--- NOTE | 2018-01-10 10:52 | General Progress Note ---
Assessment/Plan Problem List: (1) Renal insufficiency ICD Codes: N28.9 - Disorder of kidney and ureter, unspecified SNOMED: 166888272, 622502717 (2) Atrial fibrillation ICD Codes: I48.91 - Unspecified atrial fibrillation SNOMED: 41366496 (3) Anemia ICD Codes: D64.9 - Anemia, unspecified SNOMED: 347754927 (4) NSTEMI (non-ST elevated myocardial infarction) ICD Codes: I21.4 - Non-ST elevation (NSTEMI) myocardial infarction SNOMED: 174359244, 900938723 (5) Cardiomyopathy ICD Codes: I42.9 - Cardiomyopathy, unspecified SNOMED: 68498941 Status: progressing Assessment/Plan afebrile a fib rate is improving no cp nstemi check troponin Subjective ROS Limited/Unobtainable: Yes Allergies: Coded Allergies: No Known Allergies (Unverified , 01/07/18) Objective Last 24 Hour Vital Signs Date Time Temp Pulse Resp B/P (MAP) Pulse Ox O2 Delivery O2 Flow Rate FiO2 01/10/18 09:08 91/62 01/10/18 09:07 72 01/10/18 09:06 72 91/62 01/10/18 08:10 98 Room Air 21 01/10/18 08:10 Room Air 21 01/10/18 08:10 Room Air 21 01/10/18 08:10 Room Air 21 01/10/18 08:00 75 01/10/18 08:00 98.1 72 20 91/62 (72) 94 01/10/18 06:20 97.6 84 20 93/59 (70) 95 01/10/18 06:01 85 16 100/63 (75) 98 01/10/18 05:00 81 16 122/93 (103) 98 01/10/18 04:00 Nasal Cannula 2.0 01/10/18 04:00 97.6 85 16 94/70 (78) 98 01/10/18 04:00 85 01/10/18 03:00 75 16 88/58 (68) 96 01/10/18 02:00 77 18 88/60 (69) 96 01/10/18 01:22 73 20 99 Room Air 21 01/10/18 01:12 87 19 96 Room Air 21 01/10/18 01:00 78 15 98/52 (67) 99 01/10/18 00:04 88 01/10/18 00:03 Nasal Cannula 2.0 01/10/18 00:00 97.5 79 20 126/105 (112) 100 01/09/18 23:00 79 23 112/65 (81) 98 01/09/18 22:00 77 15 111/68 (82) 97 01/09/18 21:00 93 11 90/63 (72) 100 01/09/18 20:42 95 90/63 01/09/18 20:02 93 19 100 Room Air 21 01/09/18 20:00 97.6 95 11 90/63 (72) 100 01/09/18 20:00 Nasal Cannula 2.0 01/09/18 20:00 95 01/09/18 19:52 Room Air 21 01/09/18 19:52 91 20 97 Room Air 21 01/09/18 19:52 97 Room Air 21 01/09/18 19:00 94 24 92/62 (72) 99 01/09/18 18:00 88 20 128/74 (92) 98 01/09/18 17:00 98.6 78 22 118/77 (91) 99 01/09/18 16:00 93 01/09/18 16:00 83 27 92/65 (74) 95 01/09/18 16:00 Nasal Cannula 2.0 01/09/18 15:00 87 22 126/106 (113) 99 01/09/18 14:51 85 22 100 Room Air 21 01/09/18 14:40 99 22 95 Room Air 21 01/09/18 14:00 88 22 135/82 (99) 99 01/09/18 13:00 90 22 133/80 (97) 99 01/09/18 12:00 Nasal Cannula 2.0 01/09/18 12:00 84 01/09/18 12:00 82 22 139/84 (102) 99 01/09/18 11:00 98.4 77 22 130/80 (97) 99 Intake and Output 01/09/18 01/10/18 19:00 07:00 Intake Total 0 ml Output Total 1090 ml 600 ml Balance -1090 ml -600 ml Intake Oral 0 ml Output Urine Total 1090 ml 600 ml # Bowel Movements 2 Laboratory Tests 11/23/18 03:50: White Blood Count 8.3, Red Blood Count 4.10L, Hemoglobin 12.6L, Hematocrit 38.8L , Mean Corpuscular Volume 95, Mean Corpuscular Hemoglobin 30.7, Mean Corpuscular Hemoglobin Concent 32.5, Red Cell Distribution Width 14.3, Platelet Count 127L, Mean Platelet Volume 9.5, Neutrophils (%) (Auto) 62.6, Lymphocytes ( %) (Auto) 25.0, Monocytes (%) (Auto) 7.9, Eosinophils (%) (Auto) 3.0, Basophils (%) (Auto) 1.6, Activated Partial Thromboplast Time 27, Sodium Level 140, Potassium Level 4.1, Chloride Level 107, Carbon Dioxide Level 23, Anion Gap 11, Blood Urea Nitrogen 21H, Creatinine 1.7H, Estimat Glomerular Filtration Rate , Glucose Level 101, Calcium Level 8.9, C-Reactive Protein, Quantitative 4.1H Height (Feet): 5 Height (Inches): 7.00 Weight (Pounds): 169 Respiratory/Chest: lungs clear Abdomen: soft Inocencia Watt MD Jan 10, 2018 10:52
[2018-01-10] MEDS: cefTRIAXone 1 GM in D5W 55 ML IVPB SCH (11:33)
--- NOTE | 2018-01-10 12:16 | Infectious Diseases Prog Note ---
Assessment/Plan Assessment/Plan A; Pneumonia CHF, EF=20-25% Atrial flutter Aortic stenosis Mitral regurgitation renal failure DVT of R leg P; Continue Zithromax & Rocephin will f/u cultures Subjective ROS Limited/Unobtainable: No Constitutional: Reports: no symptoms Respiratory: Reports: dry cough Gastrointestinal/Abdominal: Reports: no symptoms Genitourinary: Reports: no symptoms Allergies: Coded Allergies: No Known Allergies (Unverified , 01/07/18) Objective Vital Signs Last 24 Hour Vital Signs Date Time Temp Pulse Resp B/P (MAP) Pulse Ox O2 Delivery O2 Flow Rate FiO2 01/10/18 09:08 91/62 01/10/18 09:07 72 01/10/18 09:06 72 01/10/18 08:10 98 Room Air 21 01/10/18 08:10 Room Air 21 01/10/18 08:10 Room Air 21 01/10/18 08:10 Room Air 21 01/10/18 08:00 75 01/10/18 08:00 98.1 72 20 91/62 (72) 94 01/10/18 06:20 97.6 84 20 93/59 (70) 95 01/10/18 06:01 85 16 100/63 (75) 98 01/10/18 05:00 81 16 122/93 (103) 98 01/10/18 04:00 Nasal Cannula 2.0 01/10/18 04:00 97.6 85 16 94/70 (78) 98 01/10/18 04:00 85 01/10/18 03:00 75 16 88/58 (68) 96 01/10/18 02:00 77 18 88/60 (69) 96 01/10/18 01:22 73 20 99 Room Air 21 01/10/18 01:12 87 19 96 Room Air 21 01/10/18 01:00 78 15 98/52 (67) 99 01/10/18 00:04 88 01/10/18 00:03 Nasal Cannula 2.0 01/10/18 00:00 97.5 79 20 126/105 (112) 100 01/09/18 23:00 79 23 112/65 (81) 98 01/09/18 22:00 77 15 111/68 (82) 97 01/09/18 21:00 93 11 90/63 (72) 100 11/22/18 20:42 95 90/63 01/09/18 20:02 93 19 100 Room Air 21 01/09/18 20:00 97.6 95 11 90/63 (72) 100 01/09/18 20:00 Nasal Cannula 2.0 01/09/18 20:00 95 01/09/18 19:52 Room Air 21 01/09/18 19:52 91 20 97 Room Air 21 01/09/18 19:52 97 Room Air 21 01/09/18 19:00 94 24 92/62 (72) 99 01/09/18 18:00 88 20 128/74 (92) 98 01/09/18 17:00 98.6 78 22 118/77 (91) 99 01/09/18 16:00 93 01/09/18 16:00 83 27 92/65 (74) 95 01/09/18 16:00 Nasal Cannula 2.0 01/09/18 15:00 87 22 126/106 (113) 99 01/09/18 14:51 85 22 100 Room Air 21 01/09/18 14:40 99 22 95 Room Air 21 01/09/18 14:00 88 22 135/82 (99) 99 01/09/18 13:00 90 22 133/80 (97) 99 Height (Feet): 5 Height (Inches): 7.00 Weight (Pounds): 169 General Appearance: no acute distress HEENT: mucous membranes moist Respiratory/Chest: lungs clear Cardiovascular: normal rate Abdomen: soft, non tender Extremities: other - edema of legs Neurologic/Psychiatric: alert, oriented x 3, responsive Microbiology Date/Time Source Procedure Growth Status 01/08/18 23:00 Sputum Expectorated Gram Stain - Final Resulted 01/08/18 23:00 Sputum Expectorated Sputum Culture - Preliminary NORMAL UPPER RESPIRATORY SHERON AT 24 ... Resulted 01/08/18 06:15 Nasal Nares MRSA Culture - Final NO METHICILLIN RESISTANT STAPH AUREUS... Complete 01/07/18 20:45 Nasal Nares Influenza Types A,B Antigen (RIOS) - Final Complete Laboratory Tests Test 01/10/18 03:50 White Blood Count 8.3 K/UL (4.8-10.8) Red Blood Count 4.10 M/UL (4.70-6.10) L Hemoglobin 12.6 G/DL (14.2-18.0) L Hematocrit 38.8 % (42.0-52.0) L Mean Corpuscular Volume 95 FL (80-99) Mean Corpuscular Hemoglobin 30.7 PG (27.0-31.0) Mean Corpuscular Hemoglobin Concent 32.5 G/DL (32.0-36.0) Red Cell Distribution Width 14.3 % (11.6-14.8) Platelet Count 127 K/UL (150-450) L Mean Platelet Volume 9.5 FL (6.5-10.1) Neutrophils (%) (Auto) 62.6 % (45.0-75.0) Lymphocytes (%) (Auto) 25.0 % (20.0-45.0) Monocytes (%) (Auto) 7.9 % (1.0-10.0) Eosinophils (%) (Auto) 3.0 % (0.0-3.0) Basophils (%) (Auto) 1.6 % (0.0-2.0) Activated Partial Thromboplast Time 27 SEC (23-33) Sodium Level 140 MMOL/L (136-145) Potassium Level 4.1 MMOL/L (3.5-5.1) Chloride Level 107 MMOL/L (98-107) Carbon Dioxide Level 23 MMOL/L (21-32) Anion Gap 11 mmol/L (5-15) Blood Urea Nitrogen 21 mg/dL (7-18) H Creatinine 1.7 MG/DL (0.55-1.30) H Estimat Glomerular Filtration Rate mL/min (>60) Glucose Level 101 MG/DL (74-106) Calcium Level 8.9 MG/DL (8.5-10.1) C-Reactive Protein, Quantitative 4.1 mg/dL (0.00-0.90) H Current Medications Medications (Trade) Dose Ordered Sig/Fritz Route PRN Reason Start Time Stop Time Status Last Admin Dose Admin Acetaminophen (Tylenol) 650 mg Q4H PRN ORAL For Pain 01/10/18 07:00 02/09/18 06:59 Apixaban (Eliquis) 5 mg BID ORAL 01/10/18 09:00 02/08/18 17:59 01/10/18 09:08 Azithromycin (Zithromax) 250 mg DAILY ORAL 01/10/18 09:00 01/16/18 08:59 01/10/18 09:07 Carvedilol (Coreg) 25 mg EVERY 12 HOURS ORAL 01/10/18 09:00 02/08/18 20:59 01/10/18 09:06 Ceftriaxone Sodium 1 gm/ Dextrose 55 ml @ 110 mls/hr Q24H IVPB 01/10/18 11:00 01/15/18 10:59 01/10/18 11:33 Digoxin (Lanoxin) 0.25 mg DAILY ORAL 01/10/18 09:00 02/08/18 08:59 01/10/18 09:07 Furosemide (Lasix) 40 mg DAILY ORAL 01/11/18 09:00 02/10/18 08:59 Guaifenesin (Mucinex ER) 600 mg TWICE A DAY ORAL 01/10/18 09:00 02/07/18 17:59 01/10/18 09:07 Guaifenesin (Robitussin) 100 mg Q4H PRN ORAL For Cough 01/10/18 07:30 02/07/18 07:29 Ipratropium [place] (Atrovent) 500 mcg Q4H PRN HHN Shortness of Breath 01/10/18 07:30 01/13/18 07:29 Ipratropium [place] (Atrovent) 500 mcg Q6HRT HHN 01/10/18 07:00 01/13/18 06:59 Lisinopril (Zestril) 10 mg DAILY ORAL 01/11/18 09:00 02/08/18 08:59 Pantoprazole (Protonix) 40 mg DAILY ORAL 01/10/18 09:00 02/07/18 09:38 01/10/18 09:06 Alexis Rivera MD Jan 10, 2018 12:16
--- NOTE | 2018-01-10 13:50 | General Progress Note ---
Assessment/Plan Status: stable Assessment/Plan # Thrombocytopenia - potential causes multifactorial, evaluate liver and viral etiologies to begin, also could be related to underlying medications patient has received. --> Hep panel is pending and HIV negative --> US abd shows no cirrhosis nor hsm --> Peripheral smear ordered to evaluate for blasts /schistocytes --> abx and other meds have been reviewed --> ok for ppx if plt >50k w/ wither heparin or lovenox --> Transfuse if Plt < 20k and fever, or if Plt < 10k without fever # Anemia of chronic disease due to underlying chronic medical issues, multifactorial. --> Anemia w/u has been reviewed. Ferritin at 450. --> WIll trend CBC as needed. --> hgb goal >7. Transfuse prn. --> No evidence of hemolysis noted. # PNA. CXR has been reviewed. --> Pt on abx # History of DVT. # Myocardial infarction. # Atrial flutter with rapid ventricular response. Subjective Date patient seen: Jan 10, 2018 Hematologic/Lymphatic: Reports: anemia Allergies: Coded Allergies: No Known Allergies (Unverified , 01/07/18) All Systems: reviewed and negative except above Subjective Pt transferred from ICU to tele. Pt awake and alert. No acute events. H/H stable. Objective Last 24 Hour Vital Signs Date Time Temp Pulse Resp B/P (MAP) Pulse Ox O2 Delivery O2 Flow Rate FiO2 01/10/18 13:26 Room Air 21 01/10/18 13:26 Room Air 21 01/10/18 09:08 91/62 01/10/18 09:07 72 01/10/18 09:06 72 91/62 01/10/18 08:10 98 Room Air 21 01/10/18 08:10 Room Air 21 01/10/18 08:10 Room Air 21 01/10/18 08:10 Room Air 01/10/18 08:00 75 01/10/18 08:00 98.1 72 20 91/62 (72) 94 01/10/18 06:20 97.6 84 20 93/59 (70) 95 01/10/18 06:01 85 16 100/63 (75) 98 01/10/18 05:00 81 16 122/93 (103) 98 01/10/18 04:00 Nasal Cannula 2.0 01/10/18 04:00 97.6 85 16 94/70 (78) 98 01/10/18 04:00 85 01/10/18 03:00 75 16 88/58 (68) 96 01/10/18 02:00 77 18 88/60 (69) 96 01/10/18 01:22 73 20 99 Room Air 21 01/10/18 01:12 87 19 96 Room Air 21 01/10/18 01:00 78 15 98/52 (67) 99 01/10/18 00:04 88 01/10/18 00:03 Nasal Cannula 2.0 01/10/18 00:00 97.5 79 20 126/105 (112) 100 01/09/18 23:00 79 23 112/65 (81) 98 01/09/18 22:00 77 15 111/68 (82) 97 01/09/18 21:00 93 11 90/63 (72) 100 01/09/18 20:42 95 90/63 01/09/18 20:02 93 19 100 Room Air 21 01/09/18 20:00 97.6 95 11 90/63 (72) 100 01/09/18 20:00 Nasal Cannula 2.0 01/09/18 20:00 95 01/09/18 19:52 Room Air 21 01/09/18 19:52 91 20 97 Room Air 21 01/09/18 19:52 97 Room Air 21 01/09/18 19:00 94 24 92/62 (72) 99 01/09/18 18:00 88 20 128/74 (92) 98 01/09/18 17:00 98.6 78 22 118/77 (91) 99 01/09/18 16:00 93 01/09/18 16:00 83 27 92/65 (74) 95 01/09/18 16:00 Nasal Cannula 2.0 01/09/18 15:00 87 22 126/106 (113) 99 01/09/18 14:51 85 22 100 Room Air 21 01/09/18 14:40 99 22 95 Room Air 21 01/09/18 14:00 88 22 135/82 (99) 99 Intake and Output 01/09/18 01/10/18 19:00 07:00 Intake Total 0 ml Output Total 1090 ml 600 ml Balance -1090 ml -600 ml Intake Oral 0 ml Output Urine Total 1090 ml 600 ml # Bowel Movements 2 Laboratory Tests 01/10/18 03:50: White Blood Count 8.3, Red Blood Count 4.10L, Hemoglobin 12.6L, Hematocrit 38.8L , Mean Corpuscular Volume 95, Mean Corpuscular Hemoglobin 30.7, Mean Corpuscular Hemoglobin Concent 32.5, Red Cell Distribution Width 14.3, Platelet Count 127L, Mean Platelet Volume 9.5, Neutrophils (%) (Auto) 62.6, Lymphocytes ( %) (Auto) 25.0, Monocytes (%) (Auto) 7.9, Eosinophils (%) (Auto) 3.0, Basophils (%) (Auto) 1.6, Activated Partial Thromboplast Time 27, Sodium Level 140, Potassium Level 4.1, Chloride Level 107, Carbon Dioxide Level 23, Anion Gap 11, Blood Urea Nitrogen 21H, Creatinine 1.7H, Estimat Glomerular Filtration Rate , Glucose Level 101, Calcium Level 8.9, C-Reactive Protein, Quantitative 4.1H Height (Feet): 5 Height (Inches): 7.00 Weight (Pounds): 169 Objective PHYSICAL EXAMINATION: VITAL SIGNS: Have been reviewed. GENERAL: No acute distress. HEENT: Pupils equally reactive to light and accommodation. Mouth appears clean without thrush. NECK: Supple. No adenopathy. No JVD. CARDIOVASCULAR: Regular rate and rhythm. No murmurs. LUNGS: Clear to auscultation bilaterally. No crackles. No wheezes. ABDOMEN: Soft and nontender. No organomegaly. EXTREMITIES: No cyanosis, no clubbing, no edema. Bruce Loya MD Jan 10, 2018 13:50
--- NOTE | 2018-01-10 15:50 | Cardiac Electrophysiology PN ---
Assessment/Plan Assessment/Plan 1. Troponin elevation. The levels are coming down from 3 to 1.5. The patient does not have any chest pain. EF is only 20% to 25%. The patient would need cardiac catheterization for further evaluation of his coronaries after optimized on medical therapy. 2. Atrial flutter with rapid ventricular response. This is newly diagnosed. Now off Cardizem drip. Continue Dig and Coreg 25 bid Eventually would benefit from atrial flutter ablation. 3. Congestive heart failure, ejection fraction of 20% with BNP of 11,000. On Lasix 40 intravenous bid , Dig, lisinopril and Coreg 4. Hypertension. Continue current therapy and prn Clonidine 5. Possible pneumonia. On IV antibiotic per leaf sorter and ID. ASHWINI RN Subjective Subjective Heart rate better transferred to tele. No CP or SOB Objective Last 24 Hour Vital Signs Date Time Temp Pulse Resp B/P (MAP) Pulse Ox O2 Delivery O2 Flow Rate FiO2 01/10/18 13:26 Room Air 21 01/10/18 13:26 Room Air 21 01/10/18 12:00 67 01/10/18 12:00 97.4 52 20 88/54 (65) 93 01/10/18 09:08 91/62 01/10/18 09:07 72 01/10/18 09:06 72 91/62 01/10/18 08:10 98 Room Air 21 01/10/18 08:10 Room Air 21 01/10/18 08:10 Room Air 21 01/10/18 08:10 Room Air 21 01/10/18 08:00 75 01/10/18 08:00 98.1 72 20 91/62 (72) 94 01/10/18 06:20 97.6 84 20 93/59 (70) 95 01/10/18 06:01 85 16 100/63 (75) 98 01/10/18 05:00 81 16 122/93 (103) 98 01/10/18 04:00 Nasal Cannula 2.0 01/10/18 04:00 97.6 85 16 94/70 (78) 98 01/10/18 04:00 85 01/10/18 03:00 75 16 88/58 (68) 96 01/10/18 02:00 77 18 88/60 (69) 96 01/10/18 01:22 73 20 99 Room Air 21 01/10/18 01:12 87 19 96 Room Air 21 01/10/18 01:00 78 15 98/52 (67) 99 01/10/18 00:04 88 01/10/18 00:03 Nasal Cannula 2.0 01/10/18 00:00 97.5 79 20 126/105 (112) 100 01/09/18 23:00 79 23 112/65 (81) 98 01/09/18 22:00 77 15 111/68 (82) 97 01/09/18 21:00 93 11 90/63 (72) 100 01/09/18 20:42 95 90/63 01/09/18 20:02 93 19 100 Room Air 21 01/09/18 20:00 97.6 95 11 90/63 (72) 100 01/09/18 20:00 Nasal Cannula 2.0 01/09/18 20:00 95 01/09/18 19:52 Room Air 21 01/09/18 19:52 91 20 97 Room Air 21 01/09/18 19:52 97 Room Air 21 01/09/18 19:00 94 24 92/62 (72) 99 01/09/18 18:00 88 20 128/74 (92) 98 01/09/18 17:00 98.6 78 22 118/77 (91) 99 01/09/18 16:00 93 01/09/18 16:00 83 27 92/65 (74) 95 01/09/18 16:00 Nasal Cannula 2.0 Intake and Output 01/09/18 01/10/18 19:00 07:00 Intake Total 0 ml Output Total 1090 ml 600 ml Balance -1090 ml -600 ml Intake Oral 0 ml Output Urine Total 1090 ml 600 ml # Bowel Movements 2 Laboratory Tests Test 01/10/18 03:50 White Blood Count 8.3 K/UL (4.8-10.8) Red Blood Count 4.10 M/UL (4.70-6.10) L Hemoglobin 12.6 G/DL (14.2-18.0) L Hematocrit 38.8 % (42.0-52.0) L Mean Corpuscular Volume 95 FL (80-99) Mean Corpuscular Hemoglobin 30.7 PG (27.0-31.0) Mean Corpuscular Hemoglobin Concent 32.5 G/DL (32.0-36.0) Red Cell Distribution Width 14.3 % (11.6-14.8) Platelet Count 127 K/UL (150-450) L Mean Platelet Volume 9.5 FL (6.5-10.1) Neutrophils (%) (Auto) 62.6 % (45.0-75.0) Lymphocytes (%) (Auto) 25.0 % (20.0-45.0) Monocytes (%) (Auto) 7.9 % (1.0-10.0) Eosinophils (%) (Auto) 3.0 % (0.0-3.0) Basophils (%) (Auto) 1.6 % (0.0-2.0) Activated Partial Thromboplast Time 27 SEC (23-33) Sodium Level 140 MMOL/L (136-145) Potassium Level 4.1 MMOL/L (3.5-5.1) Chloride Level 107 MMOL/L (98-107) Carbon Dioxide Level 23 MMOL/L (21-32) Anion Gap 11 mmol/L (5-15) Blood Urea Nitrogen 21 mg/dL (7-18) H Creatinine 1.7 MG/DL (0.55-1.30) H Estimat Glomerular Filtration Rate mL/min (>60) Glucose Level 101 MG/DL (74-106) Calcium Level 8.9 MG/DL (8.5-10.1) C-Reactive Protein, Quantitative 4.1 mg/dL (0.00-0.90) H Microbiology Date/Time Source Procedure Growth Status 01/08/18 23:00 Sputum Expectorated Gram Stain - Final Resulted 01/08/18 23:00 Sputum Expectorated Sputum Culture - Preliminary NORMAL UPPER RESPIRATORY SHERON AT 24 ... Resulted 01/08/18 06:15 Nasal Nares MRSA Culture - Final NO METHICILLIN RESISTANT STAPH AUREUS... Complete 01/07/18 20:45 Nasal Nares Influenza Types A,B Antigen (RIOS) - Final Complete Objective HEAD AND NECK: No jugular venous distention. LUNGS: Coarse rhonchi. CARDIOVASCULAR: Regular S1 and S2 with no gallop or murmur ABDOMEN: Soft. EXTREMITIES: No pitting edema. Antonio Conde MD Jan 10, 2018 15:50
--- NOTE | 2018-01-10 21:07 | Pulmonolgy Critical Care Note ---
Critical Care - Asmt/Plan Assessment/Plan: 1. Respiratory illness, URI/tracheobronchitis versus early pneumonia. 2. Systemic inflammatory response syndrome. 3. Atrial flutter with rapid ventricular response. 4. [id number] SC, likely demand ischemia in the setting of rapid atrial flutter. 5. 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 6. Remote history of DVT in 2012, off anticoagulation prior to this admission. AC per cards monitor IO monitor for bleeding rate control po fu labs and replace lytes tele cxr 1-2 days Respiratory: CXR Cardiac: continue to monitor HR/BP Prophylaxis: Heparin Time Spent (Minutes): 40 Notes Reviewed: debeader, cardio Critical Care - Objective Last 24 Hour Vital Signs Date Time Temp Pulse Resp B/P (MAP) Pulse Ox O2 Delivery O2 Flow Rate FiO2 01/10/18 20:46 88 109/56 01/10/18 20:00 97.0 88 18 109/56 (73) 95 01/10/18 19:02 58 20 99 Room Air 21 01/10/18 18:56 56 19 98 Room Air 21 01/10/18 18:56 Room Air 21 01/10/18 18:55 98 Room Air 21 01/10/18 16:00 66 01/10/18 16:00 98.3 67 16 110/52 (71) 100 01/10/18 13:26 Room Air 21 01/10/18 13:26 Room Air 21 01/10/18 12:00 67 01/10/18 12:00 97.4 52 20 88/54 (65) 93 01/10/18 09:08 91/62 01/10/18 09:07 72 01/10/18 09:06 72 91/62 01/10/18 08:10 98 Room Air 21 01/10/18 08:10 Room Air 21 01/10/18 08:10 Room Air 21 01/10/18 08:10 Room Air 21 01/10/18 08:00 75 01/10/18 08:00 98.1 72 20 91/62 (72) 94 01/10/18 06:20 97.6 84 20 93/59 (70) 95 01/10/18 06:01 85 16 100/63 (75) 98 01/10/18 05:00 81 16 122/93 (103) 98 01/10/18 04:00 Nasal Cannula 2.0 01/10/18 04:00 97.6 85 16 94/70 (78) 98 01/10/18 04:00 85 01/10/18 03:00 75 16 88/58 (68) 96 01/10/18 02:00 77 18 88/60 (69) 96 01/10/18 01:22 73 20 99 Room Air 21 01/10/18 01:12 87 19 96 Room Air 21 01/10/18 01:00 78 15 98/52 (67) 99 01/10/18 00:04 88 01/10/18 00:03 Nasal Cannula 2.0 01/10/18 00:00 97.5 79 20 126/105 (112) 100 01/09/18 23:00 79 23 112/65 (81) 98 01/09/18 22:00 77 15 111/68 (82) 97 Condition: improving Lungs: rales Heart: HR/BP stable Abdomen: soft, non-tender Extremities: no C/C/E Decubiti: location Micro: Microbiology Date/Time Source Procedure Growth Status 01/08/18 23:00 Sputum Expectorated Gram Stain - Final Resulted 01/08/18 23:00 Sputum Expectorated Sputum Culture - Preliminary NORMAL UPPER RESPIRATORY SHERON AT 24 ... Resulted 01/08/18 06:15 Nasal Nares MRSA Culture - Final NO METHICILLIN RESISTANT STAPH AUREUS... Complete Critical Care - Subjective ROS Limited/Unobtainable: Yes Condition: improving FI02: 21 Sputum Amount: None I&O: Intake and Output 01/09/18 01/10/18 18:59 06:59 Intake Total 0 ml Output Total 1090 ml 600 ml Balance -1090 ml -600 ml Intake Oral 0 ml Output Urine Total 1090 ml 600 ml # Bowel Movements 2 Subjective: doing well today no cp nv or bleeding tolerating po no dizziness on RA oob to chair bp stable no fever positive uop Labs: Current Medications Medications (Trade) Dose Ordered Sig/Fritz Route PRN Reason Start Time Stop Time Status Last Admin Dose Admin Acetaminophen (Tylenol) 650 mg Q4H PRN ORAL For Pain 01/10/18 07:00 02/09/18 06:59 Apixaban (Eliquis) 5 mg BID ORAL 01/10/18 09:00 02/08/18 17:59 01/10/18 17:30 Azithromycin (Zithromax) 250 mg DAILY ORAL 01/10/18 09:00 01/16/18 08:59 01/10/18 09:07 Carvedilol (Coreg) 25 mg EVERY 12 HOURS ORAL 01/10/18 09:00 02/08/18 20:59 01/10/18 20:46 Ceftriaxone Sodium 1 gm/ Dextrose 55 ml @ 110 mls/hr Q24H IVPB 01/10/18 11:00 01/15/18 10:59 01/10/18 11:33 Digoxin (Lanoxin) 0.25 mg DAILY ORAL 01/10/18 09:00 02/08/18 08:59 01/10/18 09:07 Furosemide (Lasix) 40 mg DAILY ORAL 01/11/18 09:00 02/10/18 08:59 Guaifenesin (Mucinex ER) 600 mg TWICE A DAY ORAL 01/10/18 09:00 02/07/18 17:59 01/10/18 17:30 Guaifenesin (Robitussin) 100 mg Q4H PRN ORAL For Cough 01/10/18 07:30 02/07/18 07:29 Ipratropium [place] (Atrovent) 500 mcg Q4H PRN HHN Shortness of Breath 01/10/18 07:30 01/13/18 07:29 Ipratropium [place] (Atrovent) 500 mcg Q6HRT HHN 01/10/18 07:00 01/13/18 06:59 01/10/18 18:54 Lisinopril (Zestril) 10 mg DAILY ORAL 01/11/18 09:00 02/08/18 08:59 Pantoprazole (Protonix) 40 mg DAILY ORAL 01/10/18 09:00 02/07/18 09:38 01/10/18 09:06 Laboratory Tests Test 01/10/18 03:50 White Blood Count 8.3 K/UL (4.8-10.8) Red Blood Count 4.10 M/UL (4.70-6.10) L Hemoglobin 12.6 G/DL (14.2-18.0) L Hematocrit 38.8 % (42.0-52.0) L Mean Corpuscular Volume 95 FL (80-99) Mean Corpuscular Hemoglobin 30.7 PG (27.0-31.0) Mean Corpuscular Hemoglobin Concent 32.5 G/DL (32.0-36.0) Red Cell Distribution Width 14.3 % (11.6-14.8) Platelet Count 127 K/UL (150-450) L Mean Platelet Volume 9.5 FL (6.5-10.1) Neutrophils (%) (Auto) 62.6 % (45.0-75.0) Lymphocytes (%) (Auto) 25.0 % (20.0-45.0) Monocytes (%) (Auto) 7.9 % (1.0-10.0) Eosinophils (%) (Auto) 3.0 % (0.0-3.0) Basophils (%) (Auto) 1.6 % (0.0-2.0) Activated Partial Thromboplast Time 27 SEC (23-33) Sodium Level 140 MMOL/L (136-145) Potassium Level 4.1 MMOL/L (3.5-5.1) Chloride Level 107 MMOL/L (98-107) Carbon Dioxide Level 23 MMOL/L (21-32) Anion Gap 11 mmol/L (5-15) Blood Urea Nitrogen 21 mg/dL (7-18) H Creatinine 1.7 MG/DL (0.55-1.30) H Estimat Glomerular Filtration Rate mL/min (>60) Glucose Level 101 MG/DL (74-106) Calcium Level 8.9 MG/DL (8.5-10.1) C-Reactive Protein, Quantitative 4.1 mg/dL (0.00-0.90) Nicole Grider DO Jan 10, 2018 21:07
[2018-01-11] VITALS: BP 111/60
[2018-01-11] MEDS: Ipratropium 0.02% Inh Soln 2.5ml UD HHN SCH ×4 (00:07→20:47)
[2018-01-11 04:00] VITALS: BP 119/64
[2018-01-11 07:57] LABS: BASOPHILS % (AUTO) 1.2 % (0.0-2.0); EOSINOPHILS % (AUTO) 2.3 % (0.0-3.0); HEMATOCRIT 37.9 % (42.0-52.0); HEMOGLOBIN 12.7 G/DL (14.2-18.0); LYMPHOCYTES % (AUTO) 23.7 % (20.0-45.0); MEAN CORPUSCULAR VOLUME 94 FL (80-99); MONOCYTES % (AUTO) 7.7 % (1.0-10.0); NEUTROPHILS % (AUTO) 65.1 % (45.0-75.0); PLATELET COUNT 146 K/UL (150-450); RED BLOOD COUNT 4.03 M/UL (4.70-6.10); RED CELL DISTRIBUTION WIDTH 14.1 % (11.6-14.8); WHITE BLOOD COUNT 8.4 K/UL (4.8-10.8)
[2018-01-11 08:28] VITALS: BP 90/63
[2018-01-11 08:29] LABS: ALANINE AMINOTRANSFERASE 20 U/L (12-78); ALBUMIN 2.9 G/DL (3.4-5.0); ALBUMIN/GLOBULIN RATIO 0.7 (1.0-2.7); ALKALINE PHOSPHATASE 56 U/L (46-116); ANION GAP 10 mmol/L (5-15); ASPARTATE AMINO TRANSFERASE 29 U/L (15-37); BILIRUBIN,TOTAL 0.8 MG/DL (0.2-1.0); BLOOD UREA NITROGEN 22 mg/dL (7-18); CARBON DIOXIDE 25 MMOL/L (21-32); CHLORIDE 107 MMOL/L (98-107); CREATININE 1.6 MG/DL (0.55-1.30); PHOSPHORUS 4.5 MG/DL (2.5-4.9); POTASSIUM 4.1 MMOL/L (3.5-5.1); SODIUM 142 MMOL/L (136-145)
[2018-01-11] MEDS: Eliquis 2.5mg tablet ORAL SCH (08:30)
[2018-01-11] MEDS: Azithromycin 250mg tab ORAL SCH (08:30)
[2018-01-11] MEDS: guaiFENesin ER 600mg tab ORAL SCH ×2 (08:30→17:17)
[2018-01-11] MEDS: Lisinopril 10mg tab ORAL SCH (08:30)
[2018-01-11] MEDS: Carvedilol 25mg Tab ORAL SCH ×2 (08:31→22:17)
[2018-01-11] MEDS: Furosemide 40mg tab ORAL SCH ×2 (08:31→08:42)
[2018-01-11] MEDS: cefTRIAXone 1 GM in D5W 55 ML IVPB SCH (11:01)
--- NOTE | 2018-01-11 11:39 | Nephrology Progress Note ---
Assessment/Plan Problem List: (1) Renal insufficiency (2) Atrial fibrillation (3) Anemia (4) NSTEMI (non-ST elevated myocardial infarction) (5) Cardiomyopathy Assessment Renal failure ? chronic Atrial Flutter NSTMI, elevated Troponin cardiomyopathy Plan Lasix now PO 2 D Echo low Ej Fx check TSH Urine studies monitor renal parameters per orders per cardio Subjective ROS Limited/Unobtainable: No Constitutional: Reports: malaise Objective Objective Last 24 Hour Vital Signs Date Time Temp Pulse Resp B/P (MAP) Pulse Ox O2 Delivery O2 Flow Rate FiO2 01/11/18 08:31 73 90/63 01/11/18 08:30 90/63 01/11/18 08:30 70 01/11/18 08:28 97.8 73 18 90/63 (72) 98 01/11/18 08:00 Room Air 01/11/18 07:53 74 01/11/18 07:42 69 20 100 Room Air 21 01/11/18 07:33 Room Air 21 01/11/18 07:33 64 20 95 Room Air 21 01/11/18 07:33 95 Room Air 21 01/11/18 04:00 98.3 71 18 119/64 (82) 98 01/11/18 03:48 63 01/11/18 00:11 59 20 100 Room Air 21 01/11/18 00:08 57 16 98 Room Air 21 01/11/18 00:00 97.9 82 18 111/60 (77) 97 01/10/18 23:47 62 01/10/18 21:00 Room Air 01/10/18 20:46 88 109/56 01/10/18 20:00 97.0 88 18 109/56 (73) 95 01/10/18 19:47 71 01/10/18 19:02 58 20 99 Room Air 21 01/10/18 18:56 56 19 98 Room Air 21 01/10/18 18:56 Room Air 21 01/10/18 18:55 98 Room Air 21 01/10/18 16:00 66 01/10/18 16:00 98.3 67 16 110/52 (71) 100 01/10/18 13:26 Room Air 21 01/10/18 13:26 Room Air 21 01/10/18 12:00 67 01/10/18 12:00 97.4 52 20 88/54 (65) 93 Intake and Output 01/10/18 01/11/18 19:00 07:00 Intake Total 360 ml Balance 360 ml Intake Oral 360 ml # Voids 2 2 # Bowel Movements 1 Laboratory Tests 01/11/18 06:40: White Blood Count 8.4, Red Blood Count 4.03L, Hemoglobin 12.7L, Hematocrit 37.9L , Mean Corpuscular Volume 94, Mean Corpuscular Hemoglobin 31.6H, Mean Corpuscular Hemoglobin Concent 33.6, Red Cell Distribution Width 14.1, Platelet Count 146L, Mean Platelet Volume 8.9, Neutrophils (%) (Auto) 65.1, Lymphocytes ( %) (Auto) 23.7, Monocytes (%) (Auto) 7.7, Eosinophils (%) (Auto) 2.3, Basophils (%) (Auto) 1.2, Sodium Level 142, Potassium Level 4.1, Chloride Level 107, Carbon Dioxide Level 25, Anion Gap 10, Blood Urea Nitrogen 22H, Creatinine 1.6H , Estimat Glomerular Filtration Rate , Glucose Level 85, Uric Acid 11.1H, Calcium Level 9.0, Phosphorus Level 4.5, Magnesium Level 1.7L, Total Bilirubin 0.8, Gamma Glutamyl Transpeptidase 37, Aspartate Amino Transf (AST/SGOT) 29, Alanine Aminotransferase (ALT/SGPT) 20, Alkaline Phosphatase 56, Troponin I 1.143H, Pro-B-Type Natriuretic Peptide 27098G, Total Protein 7.0, Albumin 2.9L, Globulin 4.1, Albumin/Globulin Ratio 0.7L, Digoxin Level 1.5 Height (Feet): 5 Height (Inches): 7.00 Weight (Pounds): 169 Cardiovascular: normal rate Respiratory/Chest: decreased breath sounds Abdomen: soft Tu Garcia MD Jan 11, 2018 11:39
[2018-01-11 12:28] VITALS: BP 127/63
[2018-01-11] MEDS: Docusate 100mg cap ORAL SCH ×2 (12:38→17:16)
[2018-01-11] MEDS: Magnesium Oxide 400mg tab ORAL SCH ×2 (12:38→17:17)
--- NOTE | 2018-01-11 13:13 | General Progress Note ---
Assessment/Plan Status: stable Assessment/Plan # Thrombocytopenia - most likely related to PNA infection. --> Hep panel and HIV are both negative --> US abd shows no cirrhosis nor hsm --> Peripheral smear ordered to evaluate for blasts /schistocytes --> abx and other meds have been reviewed --> ok for ppx if plt >50k w/ wither heparin or lovenox --> Transfuse if Plt < 20k and fever, or if Plt < 10k without fever # Anemia of chronic disease due to underlying chronic medical issues, multifactorial. --> Anemia w/u has been reviewed. Ferritin at 450. --> WIll trend CBC as needed. --> hgb goal >7. Transfuse prn. --> No evidence of hemolysis noted. # PNA. CXR has been reviewed. --> Pt completed abx # History of DVT. # Myocardial infarction. # Atrial flutter with rapid ventricular response. Subjective Date patient seen: Jan 11, 2018 Hematologic/Lymphatic: Reports: anemia Allergies: Coded Allergies: No Known Allergies (Unverified , 01/07/18) All Systems: reviewed and negative except above Subjective Pt awake and alert. No acute events. at bedside. H/H stable. Objective Last 24 Hour Vital Signs Date Time Temp Pulse Resp B/P (MAP) Pulse Ox O2 Delivery O2 Flow Rate FiO2 01/11/18 12:58 58 20 96 Room Air 21 01/11/18 12:28 97.8 67 18 127/63 (84) 98 01/11/18 11:52 68 01/11/18 08:31 73 90/63 01/11/18 08:30 90/63 01/11/18 08:30 70 01/11/18 08:28 97.8 73 18 90/63 (72) 98 01/11/18 08:00 Room Air 01/11/18 07:53 74 01/11/18 07:42 69 20 100 Room Air 21 01/11/18 07:33 Room Air 21 01/11/18 07:33 64 20 95 Room Air 21 01/11/18 07:33 95 Room Air 21 01/11/18 04:00 98.3 71 18 119/64 (82) 98 01/11/18 03:48 63 01/11/18 00:11 59 20 100 Room Air 21 01/11/18 00:08 57 16 98 Room Air 21 01/11/18 00:00 97.9 82 18 111/60 (77) 97 01/10/18 23:47 62 01/10/18 21:00 Room Air 01/10/18 20:46 88 109/56 01/10/18 20:00 97.0 88 18 109/56 (73) 95 01/10/18 19:47 71 01/10/18 19:02 58 20 99 Room Air 21 01/10/18 18:56 56 19 98 Room Air 21 01/10/18 18:56 Room Air 21 01/10/18 18:55 98 Room Air 21 01/10/18 16:00 66 01/10/18 16:00 98.3 67 16 110/52 (71) 100 01/10/18 13:26 Room Air 21 01/10/18 13:26 Room Air 21 Intake and Output 01/10/18 01/11/18 19:00 07:00 Intake Total 360 ml Balance 360 ml Intake Oral 360 ml # Voids 2 2 # Bowel Movements 1 Laboratory Tests 01/11/18 06:40: White Blood Count 8.4, Red Blood Count 4.03L, Hemoglobin 12.7L, Hematocrit 37.9L , Mean Corpuscular Volume 94, Mean Corpuscular Hemoglobin 31.6H, Mean Corpuscular Hemoglobin Concent 33.6, Red Cell Distribution Width 14.1, Platelet Count 146L, Mean Platelet Volume 8.9, Neutrophils (%) (Auto) 65.1, Lymphocytes ( %) (Auto) 23.7, Monocytes (%) (Auto) 7.7, Eosinophils (%) (Auto) 2.3, Basophils (%) (Auto) 1.2, Sodium Level 142, Potassium Level 4.1, Chloride Level 107, Carbon Dioxide Level 25, Anion Gap 10, Blood Urea Nitrogen 22H, Creatinine 1.6H , Estimat Glomerular Filtration Rate , Glucose Level 85, Uric Acid 11.1H, Calcium Level 9.0, Phosphorus Level 4.5, Magnesium Level 1.7L, Total Bilirubin 0.8, Gamma Glutamyl Transpeptidase 37, Aspartate Amino Transf (AST/SGOT) 29, Alanine Aminotransferase (ALT/SGPT) 20, Alkaline Phosphatase 56, Troponin I 1.143H, Pro-B-Type Natriuretic Peptide 86262O, Total Protein 7.0, Albumin 2.9L, Globulin 4.1, Albumin/Globulin Ratio 0.7L, Digoxin Level 1.5 Height (Feet): 5 Height (Inches): 7.00 Weight (Pounds): 169 General Appearance: no apparent distress Objective PHYSICAL EXAMINATION: VITAL SIGNS: Have been reviewed. GENERAL: No acute distress. HEENT: Pupils equally reactive to light and accommodation. Mouth appears clean without thrush. NECK: Supple. No adenopathy. No JVD. CARDIOVASCULAR: Regular rate and rhythm. No murmurs. LUNGS: Clear to auscultation bilaterally. No crackles. No wheezes. ABDOMEN: Soft and nontender. No organomegaly. EXTREMITIES: No cyanosis, no clubbing, no edema. Bruce Loya MD Jan 11, 2018 13:13
[2018-01-11] MEDS ORDERED: Tubing IV Secondary IV ONE (13:47)
[2018-01-11] MEDS ORDERED: NS 275ml ONE (13:47)
--- NOTE | 2018-01-11 15:11 | Cardiac Electrophysiology PN ---
Assessment/Plan Assessment/Plan 1. NSTEMI. The levels are coming down from 3 to 1.5. The patient does not have any chest pain. EF is only 20% to 25%. Will transfer for cardiac catheterization to [facility] on Saturday 2. Atrial flutter with rapid ventricular response. This is newly diagnosed. Now off Cardizem drip. Continue Dig and Coreg 25 bid Eventually would benefit from atrial flutter ablation. 3. Congestive heart failure, ejection fraction of 20% with BNP of 11,000. On Lasix 40 ipo daily , Dig, lisinopril and Coreg 4. Hypertension. Continue current therapy and prn Clonidine 5. Possible pneumonia. On IV antibiotic per program project analyst and ID. 6. Mild renal failure. Cr 1.6. Start Mucomyst 600 bid 7. Acute Right leg DVT. Change Eliquis to Lovenox in preparation for cardiac cath DW RN Subjective Subjective Heart rate better in atrial fibNo CP or SOB Objective Last 24 Hour Vital Signs Date Time Temp Pulse Resp B/P (MAP) Pulse Ox O2 Delivery O2 Flow Rate FiO2 01/11/18 13:11 66 20 99 Room Air 21 01/11/18 12:58 58 20 96 Room Air 21 01/11/18 12:28 97.8 67 18 127/63 (84) 98 01/11/18 11:52 68 01/11/18 08:31 73 90/63 01/11/18 08:30 90/63 01/11/18 08:30 70 01/11/18 08:28 97.8 73 18 90/63 (72) 98 01/11/18 08:00 Room Air 01/11/18 07:53 74 01/11/18 07:42 69 20 100 Room Air 21 01/11/18 07:33 Room Air 21 01/11/18 07:33 64 20 95 Room Air 21 01/11/18 07:33 95 Room Air 21 01/11/18 04:00 98.3 71 18 119/64 (82) 98 01/11/18 03:48 63 01/11/18 00:11 59 20 100 Room Air 21 01/11/18 00:08 57 16 98 Room Air 21 01/11/18 00:00 97.9 82 18 111/60 (77) 97 01/10/18 23:47 62 01/10/18 21:00 Room Air 01/10/18 20:46 88 109/56 01/10/18 20:00 97.0 88 18 109/56 (73) 95 01/10/18 19:47 71 01/10/18 19:02 58 20 99 Room Air 21 01/10/18 18:56 56 19 98 Room Air 21 01/10/18 18:56 Room Air 21 01/10/18 18:55 98 Room Air 21 01/10/18 16:00 66 01/10/18 16:00 98.3 67 16 110/52 (71) 100 Intake and Output 01/10/18 01/11/18 19:00 07:00 Intake Total 360 ml Balance 360 ml Intake Oral 360 ml # Voids 2 2 # Bowel Movements 1 Laboratory Tests Test 01/11/18 06:40 White Blood Count 8.4 K/UL (4.8-10.8) Red Blood Count 4.03 M/UL (4.70-6.10) L Hemoglobin 12.7 G/DL (14.2-18.0) L Hematocrit 37.9 % (42.0-52.0) L Mean Corpuscular Volume 94 FL (80-99) Mean Corpuscular Hemoglobin 31.6 PG (27.0-31.0) H Mean Corpuscular Hemoglobin Concent 33.6 G/DL (32.0-36.0) Red Cell Distribution Width 14.1 % (11.6-14.8) Platelet Count 146 K/UL (150-450) L Mean Platelet Volume 8.9 FL (6.5-10.1) Neutrophils (%) (Auto) 65.1 % (45.0-75.0) Lymphocytes (%) (Auto) 23.7 % (20.0-45.0) Monocytes (%) (Auto) 7.7 % (1.0-10.0) Eosinophils (%) (Auto) 2.3 % (0.0-3.0) Basophils (%) (Auto) 1.2 % (0.0-2.0) Sodium Level 142 MMOL/L (136-145) Potassium Level 4.1 MMOL/L (3.5-5.1) Chloride Level 107 MMOL/L (98-107) Carbon Dioxide Level 25 MMOL/L (21-32) Anion Gap 10 mmol/L (5-15) Blood Urea Nitrogen 22 mg/dL (7-18) H Creatinine 1.6 MG/DL (0.55-1.30) H Estimat Glomerular Filtration Rate mL/min (>60) Glucose Level 85 MG/DL (74-106) Uric Acid 11.1 MG/DL (2.6-7.2) H Calcium Level 9.0 MG/DL (8.5-10.1) Phosphorus Level 4.5 MG/DL (2.5-4.9) Magnesium Level 1.7 MG/DL (1.8-2.4) L Total Bilirubin 0.8 MG/DL (0.2-1.0) Gamma Glutamyl Transpeptidase 37 U/L (5-85) Aspartate Amino Transf (AST/SGOT) 29 U/L (15-37) Alanine Aminotransferase (ALT/SGPT) 20 U/L (12-78) Alkaline Phosphatase 56 U/L (46-116) Troponin I 1.143 ng/mL (0.000-0.056) Pro-B-Type Natriuretic Peptide 96704 pg/mL (0-125) H Total Protein 7.0 G/DL (6.4-8.2) Albumin 2.9 G/DL (3.4-5.0) L Globulin 4.1 g/dL Albumin/Globulin Ratio 0.7 (1.0-2.7) L Digoxin Level 1.5 NG/ML (0.5-2.0) Microbiology Date/Time Source Procedure Growth Status 01/08/18 23:00 Sputum Expectorated Gram Stain - Final Complete 01/08/18 23:00 Sputum Expectorated Sputum Culture - Final NORMAL UPPER RESPIRATORY SHERON AT 48 ... Complete 01/08/18 23:00 Rectum VRE Culture - Final NO VANCOMYCIN RESISTANT ENTEROCOCCUS ... Complete 01/08/18 23:00 Rectum - Final NO CARBAPENEM-RESISTANT ENTEROBACTERI... Complete Objective HEAD AND NECK: No jugular venous distention. LUNGS: Coarse rhonchi. CARDIOVASCULAR: Irregular S1 and S2 with no gallop or murmur ABDOMEN: Soft. EXTREMITIES: No pitting edema. Antonio Conde MD Jan 11, 2018 15:11
[2018-01-11] MEDS ORDERED: ALLOPURINOL300 M1 ORAL (15:50)
[2018-01-11] MEDS ORDERED: COREG25 MG ORAL (15:50)
[2018-01-11] MEDS ORDERED: ZITHROMAX250 MG ORAL (15:50)
[2018-01-11] MEDS ORDERED: ACETAMINOPHEN325 M1 ORAL (15:50)
[2018-01-11] MEDS ORDERED: ACETYLCYST200 MG/1 M ORAL (15:50)
[2018-01-11] MEDS ORDERED: LOVENOX10 M2 SUBQ (15:51)
[2018-01-11] MEDS ORDERED: COLACE100 MG ORAL (15:51)
[2018-01-11] MEDS ORDERED: FUROSEMIDE40 MG ORAL (15:51)
[2018-01-11] MEDS ORDERED: DIGOXIN250 MCG ORAL (15:51)
[2018-01-11] MEDS ORDERED: IPRATROPIU0.2 MG/1 M HHN ×2 (15:52)
[2018-01-11] MEDS ORDERED: MAG-OXIDE400 M1 PO (15:52)
[2018-01-11] MEDS ORDERED: LISINOPRIL10 MG ORAL (15:52)
[2018-01-11] MEDS ORDERED: GUAIFENESIN600 MG ORAL (15:53)
[2018-01-11] MEDS ORDERED: CEFTAZIDIM1 GM/50 ML IV (15:53)
[2018-01-11] MEDS ORDERED: PROTONIX40 MG ORAL (15:53)
[2018-01-11] MEDS ORDERED: GUAIFENESI100 MG/5 M ORAL (15:54)
--- NOTE | 2018-01-11 16:24 | General Progress Note ---
Assessment/Plan Problem List: (1) Renal insufficiency ICD Codes: N28.9 - Disorder of kidney and ureter, unspecified SNOMED: 769409122, 525070089 (2) Atrial fibrillation ICD Codes: I48.91 - Unspecified atrial fibrillation SNOMED: 08748094 (3) Anemia ICD Codes: D64.9 - Anemia, unspecified SNOMED: 761482138 (4) NSTEMI (non-ST elevated myocardial infarction) ICD Codes: I21.4 - Non-ST elevation (NSTEMI) myocardial infarction SNOMED: 308109808, 086398378 (5) Cardiomyopathy ICD Codes: I42.9 - Cardiomyopathy, unspecified SNOMED: 77253551 Assessment/Plan per dr reyes he needs cardiac cath so will transfer to [facility] for cardiac cath per dr cam recommendation a fib rate is improving no cp nstemi check troponin Subjective ROS Limited/Unobtainable: Yes Allergies: Coded Allergies: No Known Allergies (Unverified , 01/07/18) Objective Last 24 Hour Vital Signs Date Time Temp Pulse Resp B/P (MAP) Pulse Ox O2 Delivery O2 Flow Rate FiO2 01/11/18 13:11 66 20 99 Room Air 21 01/11/18 12:58 58 20 96 Room Air 21 01/11/18 12:28 97.8 67 18 127/63 (84) 98 01/11/18 11:52 68 01/11/18 08:31 73 90/63 01/11/18 08:30 90/63 01/11/18 08:30 70 01/11/18 08:28 97.8 73 18 90/63 (72) 98 01/11/18 08:00 Room Air 01/11/18 07:53 74 01/11/18 07:42 69 20 100 Room Air 21 01/11/18 07:33 Room Air 21 01/11/18 07:33 64 20 95 Room Air 21 01/11/18 07:33 95 Room Air 21 01/11/18 04:00 98.3 71 18 119/64 (82) 98 01/11/18 03:48 63 01/11/18 00:11 59 20 100 Room Air 21 01/11/18 00:08 57 16 98 Room Air 21 01/11/18 00:00 97.9 82 18 111/60 (77) 97 01/10/18 23:47 62 01/10/18 21:00 Room Air 01/10/18 20:46 88 109/56 01/10/18 20:00 97.0 88 18 109/56 (73) 95 01/10/18 19:47 71 01/10/18 19:02 58 20 99 Room Air 21 01/10/18 18:56 56 19 98 Room Air 21 01/10/18 18:56 Room Air 21 01/10/18 18:55 98 Room Air 21 Intake and Output 01/10/18 01/11/18 19:00 07:00 Intake Total 360 ml Balance 360 ml Intake Oral 360 ml # Voids 2 2 # Bowel Movements 1 Laboratory Tests 01/11/18 06:40: White Blood Count 8.4, Red Blood Count 4.03L, Hemoglobin 12.7L, Hematocrit 37.9L , Mean Corpuscular Volume 94, Mean Corpuscular Hemoglobin 31.6H, Mean Corpuscular Hemoglobin Concent 33.6, Red Cell Distribution Width 14.1, Platelet Count 146L, Mean Platelet Volume 8.9, Neutrophils (%) (Auto) 65.1, Lymphocytes ( %) (Auto) 23.7, Monocytes (%) (Auto) 7.7, Eosinophils (%) (Auto) 2.3, Basophils (%) (Auto) 1.2, Sodium Level 142, Potassium Level 4.1, Chloride Level 107, Carbon Dioxide Level 25, Anion Gap 10, Blood Urea Nitrogen 22H, Creatinine 1.6H , Estimat Glomerular Filtration Rate , Glucose Level 85, Uric Acid 11.1H, Calcium Level 9.0, Phosphorus Level 4.5, Magnesium Level 1.7L, Total Bilirubin 0.8, Gamma Glutamyl Transpeptidase 37, Aspartate Amino Transf (AST/SGOT) 29, Alanine Aminotransferase (ALT/SGPT) 20, Alkaline Phosphatase 56, Troponin I 1.143H, Pro-B-Type Natriuretic Peptide 60112Z, Total Protein 7.0, Albumin 2.9L, Globulin 4.1, Albumin/Globulin Ratio 0.7L, Digoxin Level 1.5 Height (Feet): 5 Height (Inches): 7.00 Weight (Pounds): 169 Respiratory/Chest: lungs clear Abdomen: soft Inocencia Watt MD Jan 11, 2018 16:24
[2018-01-11 16:26] VITALS: BP 102/67
[2018-01-11 20:00] VITALS: BP 131/69
--- NOTE | 2018-01-11 20:40 | Pulmonology Progress Note ---
Assessment/Plan Assessment/Plan 1. Respiratory illness, URI/tracheobronchitis versus early pneumonia. 2. Systemic inflammatory response syndrome. 3. Atrial flutter with rapid ventricular response. 4. [id number] [place], likely demand ischemia in the setting of rapid atrial flutter. 5. 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 6. Remote history of DVT in 2012, off anticoagulation prior to this admission. AC per cards monitor IO monitor for bleeding rate control po fu labs and replace lytes tele cath transfer tomorrow per pt cxr 1-2 days Subjective Allergies: Coded Allergies: No Known Allergies (Unverified , 01/07/18) Objective Last 24 Hour Vital Signs Date Time Temp Pulse Resp B/P (MAP) Pulse Ox O2 Delivery O2 Flow Rate FiO2 01/11/18 16:26 97.8 69 18 102/67 (79) 98 01/11/18 15:40 74 01/11/18 13:11 66 20 99 Room Air 21 01/11/18 12:58 58 20 96 Room Air 21 01/11/18 12:28 97.8 67 18 127/63 (84) 98 01/11/18 11:52 68 01/11/18 08:31 73 90/63 01/11/18 08:30 90/63 01/11/18 08:30 70 01/11/18 08:28 97.8 73 18 90/63 (72) 98 01/11/18 08:00 Room Air 01/11/18 07:53 74 01/11/18 07:42 69 20 100 Room Air 21 01/11/18 07:33 Room Air 21 01/11/18 07:33 64 20 95 Room Air 21 01/11/18 07:33 95 Room Air 21 01/11/18 04:00 98.3 71 18 119/64 (82) 98 01/11/18 03:48 63 01/11/18 00:11 59 20 100 Room Air 21 01/11/18 00:08 57 16 98 Room Air 21 01/11/18 00:00 97.9 82 18 111/60 (77) 97 01/10/18 23:47 62 01/10/18 21:00 Room Air 01/10/18 20:46 88 109/56 Intake and Output 01/10/18 01/11/18 19:00 07:00 Intake Total 360 ml Balance 360 ml Intake Oral 360 ml # Voids 2 2 # Bowel Movements 1 General Appearance: WD/WN Respiratory/Chest: lungs clear Cardiovascular: irregularly irregular Abdomen: no organomegaly, non distended Skin: no lesions Neurologic/Psychiatric: 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 Complete 01/08/18 23:00 Rectum VRE Culture - Final NO VANCOMYCIN RESISTANT ENTEROCOCCUS ... Complete 01/08/18 23:00 Rectum - Final NO CARBAPENEM-RESISTANT ENTEROBACTERI... Complete Laboratory Tests 01/11/18 06:40: White Blood Count 8.4, Red Blood Count 4.03L, Hemoglobin 12.7L, Hematocrit 37.9L , Mean Corpuscular Volume 94, Mean Corpuscular Hemoglobin 31.6H, Mean Corpuscular Hemoglobin Concent 33.6, Red Cell Distribution Width 14.1, Platelet Count 146L, Mean Platelet Volume 8.9, Neutrophils (%) (Auto) 65.1, Lymphocytes ( %) (Auto) 23.7, Monocytes (%) (Auto) 7.7, Eosinophils (%) (Auto) 2.3, Basophils (%) (Auto) 1.2, Sodium Level 142, Potassium Level 4.1, Chloride Level 107, Carbon Dioxide Level 25, Anion Gap 10, Blood Urea Nitrogen 22H, Creatinine 1.6H , Estimat Glomerular Filtration Rate , Glucose Level 85, Uric Acid 11.1H, Calcium Level 9.0, Phosphorus Level 4.5, Magnesium Level 1.7L, Total Bilirubin 0.8, Gamma Glutamyl Transpeptidase 37, Aspartate Amino Transf (AST/SGOT) 29, Alanine Aminotransferase (ALT/SGPT) 20, Alkaline Phosphatase 56, Troponin I 1.143H, Pro-B-Type Natriuretic Peptide 40377R, Total Protein 7.0, Albumin 2.9L, Globulin 4.1, Albumin/Globulin Ratio 0.7L, Digoxin Level 1.5 Current Medications Medications (Trade) Dose Ordered Sig/Fritz Route PRN Reason Start Time Stop Time Status Last Admin Dose Admin Acetaminophen (Tylenol) 650 mg Q4H PRN ORAL For Pain 11/23/18 07:00 02/09/18 06:59 Acetylcysteine (Mucomyst) 600 mg BIDRT HHN 01/11/18 22:00 02/10/18 21:59 Allopurinol (Allopurinol) 300 mg DAILY ORAL 01/12/18 09:00 02/11/18 08:59 Azithromycin (Zithromax) 250 mg DAILY ORAL 01/10/18 09:00 01/16/18 08:59 01/11/18 08:30 Carvedilol (Coreg) 25 mg EVERY 12 HOURS ORAL 01/10/18 09:00 02/08/18 20:59 01/10/18 20:46 Ceftriaxone Sodium 1 gm/ Dextrose 55 ml @ 110 mls/hr Q24H IVPB 01/10/18 11:00 01/15/18 10:59 01/11/18 11:01 Digoxin (Lanoxin) 0.25 mg DAILY ORAL 01/10/18 09:00 02/08/18 08:59 01/11/18 08:30 Docusate Sodium (Colace) 100 mg THREE TIMES A DAY ORAL 01/11/18 13:00 02/10/18 12:59 Enoxaparin Sodium (Lovenox) 80 mg EVERY 12 HOURS SUBQ 01/11/18 21:00 02/10/18 20:59 Furosemide (Lasix) 40 mg DAILY ORAL 01/11/18 09:00 02/10/18 08:59 01/11/18 08:42 Guaifenesin (Mucinex ER) 600 mg TWICE A DAY ORAL 01/10/18 09:00 02/07/18 17:59 01/11/18 17:17 Guaifenesin (Robitussin) 100 mg Q4H PRN ORAL For Cough 01/10/18 07:30 02/07/18 07:29 Ipratropium [place] (Atrovent) 500 mcg Q4H PRN HHN Shortness of Breath 01/10/18 07:30 01/13/18 07:29 Ipratropium [place] (Atrovent) 500 mcg Q6HRT HHN 01/10/18 07:00 01/13/18 06:59 01/11/18 12:56 Lisinopril (Zestril) 10 mg DAILY ORAL 01/11/18 09:00 02/08/18 08:59 Magnesium Oxide (Mag-Ox 400mg) 400 mg THREE TIMES A DAY ORAL 01/11/18 13:00 02/10/18 12:59 01/11/18 17:17 Pantoprazole (Protonix) 40 mg DAILY ORAL 01/10/18 09:00 02/07/18 09:38 01/11/18 08:30 Nicole Vazquez DO Jan 11, 2018 20:40
[2018-01-11] MEDS: Enoxaparin 80mg Inj SUBQ SCH (22:19)
[2018-01-12] VITALS (7 sets, daily range): BP systolic 98–125; BP diastolic 59–78
[2018-01-12] MEDS: Ipratropium 0.02% Inh Soln 2.5ml UD HHN SCH ×4 (02:20→20:31)
[2018-01-12] MEDS: Acetylcysteine 20% Soln 4ml HHN SCH ×3 (02:20→21:17)
--- NOTE | 2018-01-12 08:20 | Pulmonology Progress Note ---
Assessment/Plan Assessment/Plan 1. Respiratory illness, URI/tracheobronchitis versus early pneumonia. 2. Systemic inflammatory response syndrome. 3. Atrial flutter with rapid ventricular response. 4. [id number] [place], likely demand ischemia in the setting of rapid atrial flutter. 5. 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 6. Remote history of DVT in 2012, off anticoagulation prior to this admission. AC per cards monitor IO monitor for bleeding rate control po labs ok tele cath transfer tomorrow per pt cxr am Subjective Constitutional: Reports: no symptoms HEENT: Repors: no symptoms Respiratory: Reports: no symptoms Cardiovascular: Reports: no symptoms Gastrointestinal/Abdominal: Reports: no symptoms Genitourinary: Reports: no symptoms Allergies: Coded Allergies: No Known Allergies (Unverified , 01/07/18) Subjective doing well this am still in afib no cp nv or bleeding ambualting to the br awaiting transfer to [facility] for cath Objective Last 24 Hour Vital Signs Date Time Temp Pulse Resp B/P (MAP) Pulse Ox O2 Delivery O2 Flow Rate FiO2 01/12/18 08:14 97.3 72 18 109/78 (88) 98 01/12/18 07:30 Room Air 01/12/18 04:00 98.0 84 20 110/66 (81) 96 01/12/18 03:53 69 01/12/18 02:33 55 16 99 Room Air 21 01/12/18 02:21 54 16 94 Room Air 21 01/12/18 00:00 98.0 79 20 98/65 (76) 96 01/11/18 23:32 68 01/11/18 22:17 71 108/73 01/11/18 21:00 74 16 99 Room Air 21 01/11/18 20:46 94 Room Air 21 01/11/18 20:46 Room Air 21 01/11/18 20:46 57 16 94 Room Air 21 01/11/18 20:13 76 01/11/18 20:00 98.0 73 20 131/69 (89) 97 01/11/18 16:26 97.8 69 18 102/67 (79) 98 01/11/18 15:40 74 01/11/18 13:11 66 20 99 Room Air 21 01/11/18 12:58 58 20 96 Room Air 21 11/24/18 12:28 97.8 67 18 127/63 (84) 98 01/11/18 11:52 68 01/11/18 08:31 73 90/63 01/11/18 08:30 90/63 01/11/18 08:30 70 01/11/18 08:28 97.8 73 18 90/63 (72) 98 Intake and Output 01/11/18 01/12/18 19:00 07:00 Intake Total 590 ml Output Total 650 ml Balance -60 ml Intake Oral 480 ml IV Total 110 ml Output Urine Total 650 ml # Voids 6 3 General Appearance: WD/WN Respiratory/Chest: lungs clear, normal breath sounds Cardiovascular: irregularly irregular Abdomen: soft, non tender, no organomegaly Skin: no lesions Neurologic/Psychiatric: upper stitcher II-XII grossly normal, no motor/sensory deficits, alert, oriented x 3 Current Medications Medications (Trade) Dose Ordered Sig/Fritz Route PRN Reason Start Time Stop Time Status Last Admin Dose Admin Acetaminophen (Tylenol) 650 mg Q4H PRN ORAL For Pain 01/10/18 07:00 02/09/18 06:59 Acetylcysteine (Mucomyst) 600 mg BIDRT HHN 01/11/18 22:00 02/10/18 21:59 Allopurinol (Allopurinol) 300 mg DAILY ORAL 01/12/18 09:00 02/11/18 08:59 Azithromycin (Zithromax) 250 mg DAILY ORAL 01/10/18 09:00 01/16/18 08:59 01/11/18 08:30 Carvedilol (Coreg) 25 mg EVERY 12 HOURS ORAL 01/10/18 09:00 02/08/18 20:59 01/11/18 22:17 Ceftriaxone Sodium 1 gm/ Dextrose 55 ml @ 110 mls/hr Q24H IVPB 01/10/18 11:00 01/15/18 10:59 01/11/18 11:01 Digoxin (Lanoxin) 0.25 mg DAILY ORAL 01/10/18 09:00 02/08/18 08:59 01/11/18 08:30 Docusate Sodium (Colace) 100 mg THREE TIMES A DAY ORAL 01/11/18 13:00 02/10/18 12:59 Enoxaparin Sodium (Lovenox) 80 mg EVERY 12 HOURS SUBQ 01/11/18 21:00 02/10/18 20:59 01/11/18 22:19 Furosemide (Lasix) 40 mg DAILY ORAL 01/11/18 09:00 02/10/18 08:59 01/11/18 08:42 Guaifenesin (Mucinex ER) 600 mg TWICE A DAY ORAL 01/10/18 09:00 02/07/18 17:59 01/11/18 17:17 Guaifenesin (Robitussin) 100 mg Q4H PRN ORAL For Cough 01/10/18 07:30 02/07/18 07:29 Ipratropium [place] (Atrovent) 500 mcg Q4H PRN HHN Shortness of Breath 01/10/18 07:30 01/13/18 07:29 Ipratropium [place] (Atrovent) 500 mcg Q6HRT HHN 01/10/18 07:00 01/13/18 06:59 01/12/18 02:20 Lisinopril (Zestril) 10 mg DAILY ORAL 01/11/18 09:00 02/08/18 08:59 Magnesium Oxide (Mag-Ox 400mg) 400 mg THREE TIMES A DAY ORAL 01/11/18 13:00 02/10/18 12:59 01/11/18 17:17 Pantoprazole (Protonix) 40 mg DAILY ORAL 01/10/18 09:00 02/07/18 09:38 01/11/18 08:30 Nicole Vazquez DO Jan 12, 2018 08:20
--- NOTE | 2018-01-12 08:36 | General Progress Note ---
Assessment/Plan Assessment/Plan # Thrombocytopenia - most likely related to PNA infection. --> Hep panel and HIV are both negative --> US abd shows no cirrhosis nor hsm --> Peripheral smear ordered to evaluate for blasts /schistocytes --> abx and other meds have been reviewed --> ok for ppx if plt >50k w/ wither heparin or lovenox --> Transfuse if Plt < 20k and fever, or if Plt < 10k without fever # Anemia of chronic disease due to underlying chronic medical issues, multifactorial. --> Anemia w/u has been reviewed. Ferritin at 450. --> WIll trend CBC as needed. --> hgb goal >7. Transfuse prn. --> No evidence of hemolysis noted. # History of DVT. --> on lovenox given cardiac cath --> eliquis on hold # PNA. CXR has been reviewed. --> Pt completed abx # Myocardial infarction. # Atrial flutter with rapid ventricular response. Subjective Constitutional: Denies: no symptoms, chills, diaphoresis, fever, malaise, weakness, other HEENT: Denies: no symptoms, eye pain, blurred vision, tearing, double vision, ear pain, ear discharge, nose pain, nose congestion, throat pain, throat swelling, mouth pain, mouth swelling, other Cardiovascular: Denies: no symptoms, chest pain, edema, irregular heart rate, lightheadedness, palpitations, syncope, other Respiratory: Denies: no symptoms, cough, orthopnea, shortness of breath, SOB with excertion, SOB at rest, sputum, stridor, wheezing, other Gastrointestinal/Abdominal: Denies: no symptoms, abdomen distended, abdominal pain, black stools, tarry stools, blood in stool, constipated, diarrhea, difficulty swallowing, nausea, poor appetite, poor fluid intake, rectal bleeding , vomiting, other Genitourinary: Denies: no symptoms, burning, discharge, frequency, flank pain, hematuria, incontinence, pain, urgency, other Neurologic/Psychiatric: Denies: no symptoms, anxiety, depressed, emotional problems, headache, numbness, paresthesia, pre-existing deficit, seizure, tingling, tremors, weakness, other Endocrine: Denies: no symptoms, excessive sweating, flushing, intolerance to cold, intolerance to heat, increased hunger, increased thirst, increased urine, unexplained weight gain, unexplained weight loss, other Hematologic/Lymphatic: Denies: no symptoms, anemia, easy bleeding, easy bruising, other Allergies: Coded Allergies: No Known Allergies (Unverified , 01/07/18) Subjective Pt awake and alert. No acute events. Airborne precautions. Objective Last 24 Hour Vital Signs Date Time Temp Pulse Resp B/P (MAP) Pulse Ox O2 Delivery O2 Flow Rate FiO2 01/12/18 08:14 97.3 72 18 109/78 (88) 98 01/12/18 07:30 Room Air 01/12/18 04:00 98.0 84 20 110/66 (81) 96 01/12/18 03:53 69 01/12/18 02:33 55 16 99 Room Air 21 01/12/18 02:21 54 16 94 Room Air 21 01/12/18 00:00 98.0 79 20 98/65 (76) 96 01/11/18 23:32 68 01/11/18 22:17 71 108/73 01/11/18 21:00 74 16 99 Room Air 21 01/11/18 20:46 94 Room Air 21 01/11/18 20:46 Room Air 21 01/11/18 20:46 57 16 94 Room Air 21 01/11/18 20:13 76 01/11/18 20:00 98.0 73 20 131/69 (89) 97 01/11/18 16:26 97.8 69 18 102/67 (79) 98 01/11/18 15:40 74 01/11/18 13:11 66 20 99 Room Air 21 01/11/18 12:58 58 20 96 Room Air 21 01/11/18 12:28 97.8 67 18 127/63 (84) 98 01/11/18 11:52 68 Intake and Output 01/11/18 01/12/18 19:00 07:00 Intake Total 590 ml Output Total 650 ml Balance -60 ml Intake Oral 480 ml IV Total 110 ml Output Urine Total 650 ml # Voids 6 3 Height (Feet): 5 Height (Inches): 7.00 Weight (Pounds): 165 General Appearance: no apparent distress EENT: TMs normal Neck: supple Cardiovascular: regular rhythm Respiratory/Chest: normal breath sounds Abdomen: soft Extremities: non-tender Objective PHYSICAL EXAMINATION: VITAL SIGNS: Have been reviewed. GENERAL: No acute distress. HEENT: Pupils equally reactive to light and accommodation. Mouth appears clean without thrush. NECK: Supple. No adenopathy. No JVD. CARDIOVASCULAR: Regular rate and rhythm. No murmurs. LUNGS: Clear to auscultation bilaterally. No crackles. No wheezes. ABDOMEN: Soft and nontender. No organomegaly. EXTREMITIES: No cyanosis, no clubbing, no edema. Bruce Loya MD Jan 12, 2018 08:36
[2018-01-12] MEDS: guaiFENesin ER 600mg tab ORAL SCH ×2 (08:37→17:05)
[2018-01-12] MEDS: Lisinopril 10mg tab ORAL SCH (08:38)
[2018-01-12] MEDS: Furosemide 40mg tab ORAL SCH (08:38)
[2018-01-12] MEDS: Azithromycin 250mg tab ORAL SCH (08:38)
[2018-01-12] MEDS: Magnesium Oxide 400mg tab ORAL SCH ×3 (08:38→17:05)
[2018-01-12] MEDS: Carvedilol 25mg Tab ORAL SCH ×2 (08:39→20:18)
[2018-01-12] MEDS: Docusate 100mg cap ORAL SCH ×3 (08:39→17:05)
[2018-01-12] MEDS: Enoxaparin 80mg Inj SUBQ SCH ×2 (08:42→20:19)
[2018-01-12] MEDS: cefTRIAXone 1 GM in D5W 55 ML IVPB SCH (11:08)
--- NOTE | 2018-01-12 13:03 | Nephrology Progress Note ---
Assessment/Plan Problem List: (1) Renal insufficiency (2) Atrial fibrillation (3) Anemia (4) NSTEMI (non-ST elevated myocardial infarction) (5) Cardiomyopathy Assessment Renal failure ? chronic Atrial Flutter NSTMI, elevated Troponin cardiomyopathy Plan Lasix now PO 2 D Echo low Ej Fx check TSH Urine studies monitor renal parameters per orders per cardio Subjective ROS Limited/Unobtainable: No Constitutional: Reports: malaise Objective Objective Last 24 Hour Vital Signs Date Time Temp Pulse Resp B/P (MAP) Pulse Ox O2 Delivery O2 Flow Rate FiO2 01/12/18 09:01 57 16 96 Room Air 21 01/12/18 09:01 Room Air 21 01/12/18 09:00 96 Room Air 21 01/12/18 08:39 72 109/78 01/12/18 08:38 109/78 01/12/18 08:38 72 01/12/18 08:14 97.3 72 18 109/78 (88) 98 01/12/18 08:06 69 01/12/18 07:30 Room Air 01/12/18 04:00 98.0 84 20 110/66 (81) 96 01/12/18 03:53 69 01/12/18 02:33 55 16 99 Room Air 21 01/12/18 02:21 54 16 94 Room Air 21 01/12/18 00:00 98.0 79 20 98/65 (76) 96 01/11/18 23:32 68 01/11/18 22:17 71 108/73 01/11/18 21:00 74 16 99 Room Air 21 01/11/18 20:46 94 Room Air 21 01/11/18 20:46 Room Air 21 01/11/18 20:46 57 16 94 Room Air 21 01/11/18 20:13 76 01/11/18 20:00 98.0 73 20 131/69 (89) 97 01/11/18 16:26 97.8 69 18 102/67 (79) 98 01/11/18 15:40 74 01/11/18 13:11 66 20 99 Room Air 21 Intake and Output 01/11/18 01/12/18 19:00 07:00 Intake Total 590 ml Output Total 650 ml Balance -60 ml Intake Oral 480 ml IV Total 110 ml Output Urine Total 650 ml # Voids 6 3 Height (Feet): 5 Height (Inches): 7.00 Weight (Pounds): 165 General Appearance: no apparent distress Objective no change Tu Garcia MD Jan 12, 2018 13:03
--- NOTE | 2018-01-12 13:34 | Infectious Diseases Prog Note ---
Assessment/Plan Assessment/Plan A; Pneumonia CHF, EF=20-25% Atrial flutter Aortic stenosis Mitral regurgitation renal failure DVT of R leg P; Continue Zithromax & Rocephin will f/u cultures Subjective ROS Limited/Unobtainable: Yes Respiratory: Reports: productive cough Cardiovascular: Reports: no symptoms Gastrointestinal/Abdominal: Reports: no symptoms Genitourinary: Reports: no symptoms Allergies: Coded Allergies: No Known Allergies (Unverified , 01/07/18) Objective Vital Signs Last 24 Hour Vital Signs Date Time Temp Pulse Resp B/P (MAP) Pulse Ox O2 Delivery O2 Flow Rate FiO2 01/12/18 09:01 57 16 96 Room Air 21 01/12/18 09:01 Room Air 21 01/12/18 09:00 96 Room Air 21 01/12/18 08:39 72 109/78 01/12/18 08:38 109/78 01/12/18 08:38 72 01/12/18 08:14 97.3 72 18 109/78 (88) 98 01/12/18 08:06 69 01/12/18 07:30 Room Air 01/12/18 04:00 98.0 84 20 110/66 (81) 96 01/12/18 03:53 69 01/12/18 02:33 55 16 99 Room Air 21 01/12/18 02:21 54 16 94 Room Air 21 01/12/18 00:00 98.0 79 20 98/65 (76) 96 01/11/18 23:32 68 01/11/18 22:17 71 108/73 01/11/18 21:00 74 16 99 Room Air 21 01/11/18 20:46 94 Room Air 21 01/11/18 20:46 Room Air 21 01/11/18 20:46 57 16 94 Room Air 21 01/11/18 20:13 76 01/11/18 20:00 98.0 73 20 131/69 (89) 97 01/11/18 16:26 97.8 69 18 102/67 (79) 98 01/11/18 15:40 74 Height (Feet): 5 Height (Inches): 7.00 Weight (Pounds): 165 General Appearance: no acute distress HEENT: mucous membranes moist Respiratory/Chest: lungs clear Cardiovascular: normal rate Abdomen: soft, non tender Extremities: no edema Neurologic/Psychiatric: alert, oriented x 3, responsive Laboratory Tests Test 01/12/18 06:40 C-Reactive Protein, Quantitative Pending Current Medications Medications (Trade) Dose Ordered Sig/Fritz Route PRN Reason Start Time Stop Time Status Last Admin Dose Admin Acetaminophen (Tylenol) 650 mg Q4H PRN ORAL For Pain 01/10/18 07:00 02/09/18 06:59 Acetylcysteine (Mucomyst) 600 mg BIDRT HHN 01/11/18 22:00 02/10/18 21:59 01/12/18 08:59 Allopurinol (Allopurinol) 300 mg DAILY ORAL 01/12/18 09:00 02/11/18 08:59 01/12/18 08:38 Azithromycin (Zithromax) 250 mg DAILY ORAL 01/10/18 09:00 01/16/18 08:59 01/12/18 08:38 Carvedilol (Coreg) 25 mg EVERY 12 HOURS ORAL 01/10/18 09:00 02/08/18 20:59 01/11/18 22:17 Ceftriaxone Sodium 1 gm/ Dextrose 55 ml @ 110 mls/hr Q24H IVPB 01/10/18 11:00 01/15/18 10:59 01/12/18 11:08 Digoxin (Lanoxin) 0.125 mg DAILY ORAL 01/13/18 09:00 02/08/18 08:59 Docusate Sodium (Colace) 100 mg THREE TIMES A DAY ORAL 01/11/18 13:00 02/10/18 12:59 Enoxaparin Sodium (Lovenox) 80 mg EVERY 12 HOURS SUBQ 01/11/18 21:00 02/10/18 20:59 01/12/18 08:42 Furosemide (Lasix) 40 mg DAILY ORAL 01/11/18 09:00 02/10/18 08:59 01/12/18 08:38 Guaifenesin (Mucinex ER) 600 mg TWICE A DAY ORAL 01/10/18 09:00 02/07/18 17:59 01/12/18 08:37 Guaifenesin (Robitussin) 100 mg Q4H PRN ORAL For Cough 01/10/18 07:30 02/07/18 07:29 Ipratropium [place] (Atrovent) 500 mcg Q4H PRN HHN Shortness of Breath 01/10/18 07:30 01/13/18 07:29 Ipratropium [place] (Atrovent) 500 mcg Q6HRT HHN 01/10/18 07:00 01/13/18 06:59 01/12/18 08:59 Lisinopril (Zestril) 10 mg DAILY ORAL 01/11/18 09:00 02/08/18 08:59 Magnesium Oxide (Mag-Ox 400mg) 400 mg THREE TIMES A DAY ORAL 01/11/18 13:00 02/10/18 12:59 01/12/18 08:38 Pantoprazole (Protonix) 40 mg DAILY ORAL 01/10/18 09:00 02/07/18 09:38 01/12/18 08:38 Alexis Rivera MD Jan 12, 2018 13:34
--- NOTE | 2018-01-12 14:16 | Cardiac Electrophysiology PN ---
Assessment/Plan Assessment/Plan 1. NSTEMI. The levels are coming down from 3 to 1.5. The patient does not have any chest pain. EF is only 20% to 25%. Will transfer for cardiac catheterization to [facility] today 2. Atrial flutter with rapid ventricular response. This is newly diagnosed. Now off Cardizem drip. Continue Dig and Coreg 25 bid Eventually would benefit from atrial flutter ablation. 3. Congestive heart failure, ejection fraction of 20% with BNP of 11,000. On Lasix 40 po daily , Dig, lisinopril and Coreg 4. Hypertension. Continue current therapy and prn Clonidine 5. Possible pneumonia. On IV antibiotic per loan service officer and ID. 6. Mild renal failure. Cr 1.6. On Mucomyst 600 bid 7. Acute Right leg DVT. On Lovenox in preparation for cardiac cath DW RN Subjective Subjective Heart rate better in atrial fib. No CP or SOB. Awaiting transfer to [facility] for cardiac cath Objective Last 24 Hour Vital Signs Date Time Temp Pulse Resp B/P (MAP) Pulse Ox O2 Delivery O2 Flow Rate FiO2 01/12/18 13:51 56 16 98 Nasal Cannula 2.0 28 01/12/18 13:41 51 16 92 Room Air 21 01/12/18 09:11 56 16 98 Room Air 21 01/12/18 09:01 57 16 96 Room Air 21 01/12/18 09:01 Room Air 21 01/12/18 09:00 96 Room Air 21 01/12/18 08:39 72 109/78 01/12/18 08:38 109/78 01/12/18 08:38 72 01/12/18 08:14 97.3 72 18 109/78 (88) 98 01/12/18 08:06 69 01/12/18 07:30 Room Air 01/12/18 04:00 98.0 84 20 110/66 (81) 96 01/12/18 03:53 69 01/12/18 02:33 55 16 99 Room Air 21 01/12/18 02:21 54 16 94 Room Air 21 01/12/18 00:00 98.0 79 20 98/65 (76) 96 01/11/18 23:32 68 01/11/18 22:17 71 108/73 01/11/18 21:00 74 16 99 Room Air 21 01/11/18 20:46 94 Room Air 21 01/11/18 20:46 Room Air 21 01/11/18 20:46 57 16 94 Room Air 21 01/11/18 20:13 76 01/11/18 20:00 98.0 73 20 131/69 (89) 97 01/11/18 16:26 97.8 69 18 102/67 (79) 98 01/11/18 15:40 74 Intake and Output 01/11/18 01/12/18 19:00 07:00 Intake Total 590 ml Output Total 650 ml Balance -60 ml Intake Oral 480 ml IV Total 110 ml Output Urine Total 650 ml # Voids 6 3 Laboratory Tests Test 01/12/18 06:40 C-Reactive Protein, Quantitative Pending Objective HEAD AND NECK: No jugular venous distention. LUNGS: Coarse rhonchi. CARDIOVASCULAR: Irregular S1 and S2 with no gallop or murmur ABDOMEN: Soft. EXTREMITIES: No pitting edema. Antonio Conde MD Jan 12, 2018 14:16
[2018-01-13] VITALS: BP 124/62
[2018-01-13] MEDS: Ipratropium 0.02% Inh Soln 2.5ml UD HHN SCH ×5 (01:10→21:39)
[2018-01-13 04:00] VITALS: BP 109/61
--- NOTE | 2018-01-13 06:22 | General Progress Note ---
Assessment/Plan Assessment/Plan # Thrombocytopenia - most likely related to PNA infection. --> Hep panel and HIV are both negative --> US abd shows no cirrhosis nor hsm --> Peripheral smear ordered to evaluate for blasts /schistocytes --> abx and other meds have been reviewed --> ok for ppx if plt >50k w/ with lovenox --> Transfuse if Plt < 20k and fever, or if Plt < 10k without fever # Acute right leg DVT. --> on lovenox given cardiac cath upcoming --> eliquis on hold --> recs by Dr. Conde appreciated # Anemia of chronic disease due to underlying chronic medical issues, multifactorial. --> Anemia w/u has been reviewed. Ferritin at 450. --> WIll trend CBC as needed. --> hgb goal >7. Transfuse prn. --> No evidence of hemolysis noted. # PNA. CXR has been reviewed. --> Pt completed abx # Myocardial infarction. # Atrial flutter with rapid ventricular response. Subjective Constitutional: Denies: no symptoms, chills, diaphoresis, fever, malaise, weakness, other HEENT: Denies: no symptoms, eye pain, blurred vision, tearing, double vision, ear pain, ear discharge, nose pain, nose congestion, throat pain, throat swelling, mouth pain, mouth swelling, other Cardiovascular: Denies: no symptoms, chest pain, edema, irregular heart rate, lightheadedness, palpitations, syncope, other Respiratory: Denies: no symptoms, cough, orthopnea, shortness of breath, SOB with excertion, SOB at rest, sputum, stridor, wheezing, other Gastrointestinal/Abdominal: Denies: no symptoms, abdomen distended, abdominal pain, black stools, tarry stools, blood in stool, constipated, diarrhea, difficulty swallowing, nausea, poor appetite, poor fluid intake, rectal bleeding , vomiting, other Genitourinary: Denies: no symptoms, burning, discharge, frequency, flank pain, hematuria, incontinence, pain, urgency, other Neurologic/Psychiatric: Denies: no symptoms, anxiety, depressed, emotional problems, headache, numbness, paresthesia, pre-existing deficit, seizure, tingling, tremors, weakness, other Endocrine: Denies: no symptoms, excessive sweating, flushing, intolerance to cold, intolerance to heat, increased hunger, increased thirst, increased urine, unexplained weight gain, unexplained weight loss, other Allergies: Coded Allergies: No Known Allergies (Unverified , 01/07/18) Subjective Pt awake and alert. No acute events. in room. Objective Last 24 Hour Vital Signs Date Time Temp Pulse Resp B/P (MAP) Pulse Ox O2 Delivery O2 Flow Rate FiO2 01/13/18 04:00 64 01/13/18 01:18 58 18 98 Room Air 21 01/13/18 01:10 53 20 93 Room Air 21 01/13/18 00:00 55 01/13/18 00:00 98.8 60 20 124/62 (82) 98 01/12/18 21:32 65 18 96 Room Air 21 01/12/18 21:17 60 20 94 Room Air 21 01/12/18 20:41 60 18 94 Room Air 21 01/12/18 20:31 Room Air 21 01/12/18 20:31 75 20 95 Room Air 21 01/12/18 20:31 95 Room Air 21 01/12/18 20:18 72 116/59 01/12/18 20:00 98.6 72 22 116/59 (78) 95 01/12/18 20:00 63 01/12/18 20:00 Room Air 01/12/18 16:00 97.3 60 18 125/60 (81) 98 01/12/18 15:41 72 01/12/18 14:26 97.3 70 18 118/70 (86) 98 01/12/18 13:51 56 16 98 Nasal Cannula 2.0 28 01/12/18 13:41 51 16 92 Room Air 21 01/12/18 11:55 66 01/12/18 09:11 56 16 98 Room Air 21 01/12/18 09:01 57 16 96 Room Air 21 01/12/18 09:01 Room Air 21 01/12/18 09:00 96 Room Air 21 01/12/18 08:39 72 109/78 01/12/18 08:38 109/78 01/12/18 08:38 72 01/12/18 08:14 97.3 72 18 109/78 (88) 98 01/12/18 08:06 69 01/12/18 07:30 Room Air Intake and Output 01/12/18 01/13/18 19:00 07:00 Intake Total 1010 ml Balance 1010 ml Intake Oral 900 ml IV Total 110 ml # Voids 1 Laboratory Tests 01/12/18 14:00: C-Reactive Protein, Quantitative 2.9H Height (Feet): 5 Height (Inches): 7.00 Weight (Pounds): 165 General Appearance: no apparent distress EENT: normal ENT inspection Neck: normal inspection Cardiovascular: regular rhythm Respiratory/Chest: chest wall non-tender Abdomen: soft Extremities: non-tender Objective PHYSICAL EXAMINATION: VITAL SIGNS: Have been reviewed. GENERAL: No acute distress. HEENT: Pupils equally reactive to light and accommodation. NECK: Supple. No adenopathy. No JVD. CARDIOVASCULAR: Regular rate and rhythm. No murmurs. LUNGS: Clear to auscultation bilaterally. No crackles. No wheezes. ABDOMEN: Soft and nontender. No organomegaly. EXTREMITIES: No cyanosis, no clubbing, no edema. Bruce Loya MD Jan 13, 2018 06:22
[2018-01-13 07:13] LABS: BASOPHILS % (AUTO) 1.4 % (0.0-2.0); EOSINOPHILS % (AUTO) 3.2 % (0.0-3.0); HEMATOCRIT 38.3 % (42.0-52.0); HEMOGLOBIN 12.4 G/DL (14.2-18.0); LYMPHOCYTES % (AUTO) 24.9 % (20.0-45.0); MEAN CORPUSCULAR VOLUME 94 FL (80-99); MONOCYTES % (AUTO) 9.5 % (1.0-10.0); NEUTROPHILS % (AUTO) 60.9 % (45.0-75.0); PLATELET COUNT 170 K/UL (150-450); RED BLOOD COUNT 4.08 M/UL (4.70-6.10); RED CELL DISTRIBUTION WIDTH 13.8 % (11.6-14.8); WHITE BLOOD COUNT 8.1 K/UL (4.8-10.8)
[2018-01-13 07:29] LABS: ALANINE AMINOTRANSFERASE 23 U/L (12-78); ALBUMIN 2.9 G/DL (3.4-5.0); ALBUMIN/GLOBULIN RATIO 0.7 (1.0-2.7); ALKALINE PHOSPHATASE 58 U/L (46-116); ANION GAP 7 mmol/L (5-15); ASPARTATE AMINO TRANSFERASE 24 U/L (15-37); BILIRUBIN,TOTAL 0.8 MG/DL (0.2-1.0); BLOOD UREA NITROGEN 14 mg/dL (7-18); CALCIUM 9.1 MG/DL (8.5-10.1); CARBON DIOXIDE 30 MMOL/L (21-32); CHLORIDE 107 MMOL/L (98-107); CREATININE 1.6 MG/DL (0.55-1.30); PHOSPHORUS 4.2 MG/DL (2.5-4.9); POTASSIUM 4.3 MMOL/L (3.5-5.1); SODIUM 144 MMOL/L (136-145)
[2018-01-13 08:00] VITALS: BP 108/66
[2018-01-13] MEDS: Furosemide 40mg tab ORAL SCH (09:00)
[2018-01-13] MEDS: Lisinopril 10mg tab ORAL SCH (09:00)
[2018-01-13] MEDS: Azithromycin 250mg tab ORAL SCH (09:27)
[2018-01-13] MEDS: Magnesium Oxide 400mg tab ORAL SCH ×3 (09:27→17:29)
[2018-01-13] MEDS: guaiFENesin ER 600mg tab ORAL SCH ×2 (09:28→17:29)
[2018-01-13] MEDS: Docusate 100mg cap ORAL SCH ×3 (09:28→17:29)
[2018-01-13] MEDS: Carvedilol 25mg Tab ORAL SCH ×2 (09:28→20:20)
[2018-01-13] MEDS: Digoxin 0.125mg tab ORAL SCH (09:29)
[2018-01-13] MEDS: Enoxaparin 80mg Inj SUBQ SCH ×2 (09:40→20:21)
[2018-01-13] MEDS: Acetylcysteine 20% Soln 4ml HHN SCH ×2 (10:00→21:38)
--- NOTE | 2018-01-13 10:27 | GI Progress Note ---
Assessment/Plan Problems: (1) Anemia ICD Codes: D64.9 - Anemia, unspecified SNOMED: 740967534 Status: stable Status Narrative Discussed with Dr. Boo. Assessment/Plan OB stool r/o GI bleed >> negative fu cardiology recommendations no urgent GI procedures needed at this time advance diet monitor H&H, prn transfusions bowel regime ppi zofran prn fu labs outpatient GI procedures, will require cardiac clearance prior. The patient was seen and examined at bedside and all new and available data was reviewed in the patients chart. I agree with the above findings, impression and plan. (Patient seen earlier today. Signature stamp does not reflect patient encounter time.). - Phoenix Boo MD Subjective Gastrointestinal/Abdominal: Reports: no symptoms Objective Last 24 Hour Vital Signs Date Time Temp Pulse Resp B/P (MAP) Pulse Ox O2 Delivery O2 Flow Rate FiO2 01/13/18 09:29 68 01/13/18 09:28 68 108/66 01/13/18 09:00 108/66 01/13/18 08:00 96.8 68 18 108/66 (80) 98 01/13/18 07:41 60 20 97 Room Air 21 01/13/18 07:40 55 20 98 Room Air 21 01/13/18 07:38 62 20 95 Room Air 21 01/13/18 07:30 55 20 95 Room Air 21 01/13/18 07:29 98 Room Air 21 01/13/18 07:29 Room Air 21 01/13/18 04:00 64 01/13/18 04:00 98.1 67 20 109/61 (77) 97 01/13/18 01:18 58 18 98 Room Air 21 01/13/18 01:10 53 20 93 Room Air 21 01/13/18 00:00 55 01/13/18 00:00 98.8 60 20 124/62 (82) 98 01/12/18 21:32 65 18 96 Room Air 21 01/12/18 21:17 60 20 94 Room Air 21 01/12/18 20:41 60 18 94 Room Air 21 01/12/18 20:31 Room Air 21 01/12/18 20:31 75 20 95 Room Air 21 01/12/18 20:31 95 Room Air 21 01/12/18 20:18 72 116/59 01/12/18 20:00 98.6 72 22 116/59 (78) 95 01/12/18 20:00 63 01/12/18 20:00 Room Air 01/12/18 16:00 97.3 60 18 125/60 (81) 98 01/12/18 15:41 72 01/12/18 14:26 97.3 70 18 118/70 (86) 98 01/12/18 13:51 56 16 98 Nasal Cannula 2.0 28 01/12/18 13:41 51 16 92 Room Air 21 01/12/18 11:55 66 Intake and Output 01/12/18 01/13/18 19:00 07:00 Intake Total 1010 ml 240 ml Balance 1010 ml 240 ml Intake Oral 900 ml 240 ml IV Total 110 ml # Voids 1 3 # Bowel Movements 1 Laboratory Tests Test 01/12/18 14:00 01/13/18 06:20 C-Reactive Protein, Quantitative 2.9 mg/dL (0.00-0.90) H White Blood Count 8.1 K/UL (4.8-10.8) Red Blood Count 4.08 M/UL (4.70-6.10) L Hemoglobin 12.4 G/DL (14.2-18.0) L Hematocrit 38.3 % (42.0-52.0) L Mean Corpuscular Volume 94 FL (80-99) Mean Corpuscular Hemoglobin 30.3 PG (27.0-31.0) Mean Corpuscular Hemoglobin Concent 32.2 G/DL (32.0-36.0) Red Cell Distribution Width 13.8 % (11.6-14.8) Platelet Count 170 K/UL (150-450) Mean Platelet Volume 10.0 FL (6.5-10.1) Neutrophils (%) (Auto) 60.9 % (45.0-75.0) Lymphocytes (%) (Auto) 24.9 % (20.0-45.0) Monocytes (%) (Auto) 9.5 % (1.0-10.0) Eosinophils (%) (Auto) 3.2 % (0.0-3.0) H Basophils (%) (Auto) 1.4 % (0.0-2.0) Sodium Level 144 MMOL/L (136-145) Potassium Level 4.3 MMOL/L (3.5-5.1) Chloride Level 107 MMOL/L (98-107) Carbon Dioxide Level 30 MMOL/L (21-32) Anion Gap 7 mmol/L (5-15) Blood Urea Nitrogen 14 mg/dL (7-18) Creatinine 1.6 MG/DL (0.55-1.30) H Estimat Glomerular Filtration Rate mL/min (>60) Glucose Level 95 MG/DL (74-106) Uric Acid 9.4 MG/DL (2.6-7.2) H Calcium Level 9.1 MG/DL (8.5-10.1) Phosphorus Level 4.2 MG/DL (2.5-4.9) Magnesium Level 1.8 MG/DL (1.8-2.4) Total Bilirubin 0.8 MG/DL (0.2-1.0) Aspartate Amino Transf (AST/SGOT) 24 U/L (15-37) Alanine Aminotransferase (ALT/SGPT) 23 U/L (12-78) Alkaline Phosphatase 58 U/L (46-116) Troponin I 0.745 ng/mL (0.000-0.056) Pro-B-Type Natriuretic Peptide 30806 pg/mL (0-125) H Total Protein 7.2 G/DL (6.4-8.2) Albumin 2.9 G/DL (3.4-5.0) L Globulin 4.3 g/dL Albumin/Globulin Ratio 0.7 (1.0-2.7) L Height (Feet): 5 Height (Inches): 7.00 Weight (Pounds): 167 General Appearance: WD/WN, no apparent distress, alert, thin Cardiovascular: normal rate Respiratory/Chest: normal breath sounds, no respiratory distress Abdominal Exam: normal bowel sounds, non tender, soft Extremities: non-tender Juarez Mera [employer] Jan 13, 2018 10:27
[2018-01-13] MEDS: cefTRIAXone 1 GM in D5W 55 ML IVPB SCH (10:33)
--- NOTE | 2018-01-13 10:38 | General Progress Note ---
Assessment/Plan Problem List: (1) Renal insufficiency ICD Codes: N28.9 - Disorder of kidney and ureter, unspecified SNOMED: 224205234, 477548066 (2) Atrial fibrillation ICD Codes: I48.91 - Unspecified atrial fibrillation SNOMED: 02888171 (3) Anemia ICD Codes: D64.9 - Anemia, unspecified SNOMED: 178866361 (4) NSTEMI (non-ST elevated myocardial infarction) ICD Codes: I21.4 - Non-ST elevation (NSTEMI) myocardial infarction SNOMED: 643411200, 241249629 (5) Cardiomyopathy ICD Codes: I42.9 - Cardiomyopathy, unspecified SNOMED: 98925253 Status: progressing Assessment/Plan per dr reyes he needs cardiac cath so will transfer to [facility] for cardiac cath per dr cam recommendation a fib rate is improving no cp nstemi gave transfer order already Subjective ROS Limited/Unobtainable: Yes Allergies: Coded Allergies: No Known Allergies (Unverified , 01/07/18) Objective Last 24 Hour Vital Signs Date Time Temp Pulse Resp B/P (MAP) Pulse Ox O2 Delivery O2 Flow Rate FiO2 01/13/18 09:29 68 01/13/18 09:28 68 108/66 01/13/18 09:00 108/66 01/13/18 08:00 96.8 68 18 108/66 (80) 98 01/13/18 07:41 60 20 97 Room Air 21 01/13/18 07:40 55 20 98 Room Air 21 01/13/18 07:38 62 20 95 Room Air 21 01/13/18 07:30 55 20 95 Room Air 21 01/13/18 07:29 98 Room Air 21 01/13/18 07:29 Room Air 21 01/13/18 04:00 64 01/13/18 04:00 98.1 67 20 109/61 (77) 97 01/13/18 01:18 58 18 98 Room Air 21 01/13/18 01:10 53 20 93 Room Air 21 01/13/18 00:00 55 01/13/18 00:00 98.8 60 20 124/62 (82) 98 01/12/18 21:32 65 18 96 Room Air 21 01/12/18 21:17 60 20 94 Room Air 21 01/12/18 20:41 60 18 94 Room Air 21 01/12/18 20:31 Room Air 21 01/12/18 20:31 75 20 95 Room Air 21 01/12/18 20:31 95 Room Air 21 01/12/18 20:18 72 116/59 01/12/18 20:00 98.6 72 22 116/59 (78) 95 01/12/18 20:00 63 01/12/18 20:00 Room Air 01/12/18 16:00 97.3 60 18 125/60 (81) 98 01/12/18 15:41 72 01/12/18 14:26 97.3 70 18 118/70 (86) 98 01/12/18 13:51 56 16 98 Nasal Cannula 2.0 28 01/12/18 13:41 51 16 92 Room Air 01/12/18 11:55 66 Intake and Output 01/12/18 01/13/18 19:00 07:00 Intake Total 1010 ml 240 ml Balance 1010 ml 240 ml Intake Oral 900 ml 240 ml IV Total 110 ml # Voids 1 3 # Bowel Movements 1 Laboratory Tests 01/12/18 14:00: C-Reactive Protein, Quantitative 2.9H 01/13/18 06:20: White Blood Count 8.1, Red Blood Count 4.08L, Hemoglobin 12.4L, Hematocrit 38.3L , Mean Corpuscular Volume 94, Mean Corpuscular Hemoglobin 30.3, Mean Corpuscular Hemoglobin Concent 32.2, Red Cell Distribution Width 13.8, Platelet Count 170, Mean Platelet Volume 10.0, Neutrophils (%) (Auto) 60.9, Lymphocytes ( %) (Auto) 24.9, Monocytes (%) (Auto) 9.5, Eosinophils (%) (Auto) 3.2H, Basophils (%) (Auto) 1.4, Sodium Level 144, Potassium Level 4.3, Chloride Level 107, Carbon Dioxide Level 30, Anion Gap 7, Blood Urea Nitrogen 14, Creatinine 1.6H, Estimat Glomerular Filtration Rate , Glucose Level 95, Uric Acid 9.4H, Calcium Level 9.1, Phosphorus Level 4.2, Magnesium Level 1.8, Total Bilirubin 0.8, Aspartate Amino Transf (AST/SGOT) 24, Alanine Aminotransferase (ALT/SGPT) 23, Alkaline Phosphatase 58, Troponin I 0.745H, Pro-B-Type Natriuretic Peptide 21383C, Total Protein 7.2, Albumin 2.9L, Globulin 4.3, Albumin/Globulin Ratio 0.7L Height (Feet): 5 Height (Inches): 7.00 Weight (Pounds): 167 Respiratory/Chest: lungs clear Abdomen: soft Inocencia Watt MD Jan 13, 2018 10:38
--- NOTE | 2018-01-13 11:34 | Infectious Diseases Prog Note ---
Assessment/Plan Assessment/Plan A; Pneumonia treated CHF, EF=20-25% Atrial flutter Aortic stenosis Mitral regurgitation renal failure DVT of R leg P; discontinue Zithromax & Rocephin observe off antibiotic Subjective ROS Limited/Unobtainable: No Constitutional: Reports: no symptoms Respiratory: Reports: productive cough Cardiovascular: Reports: no symptoms Gastrointestinal/Abdominal: Reports: no symptoms Genitourinary: Reports: no symptoms Allergies: Coded Allergies: No Known Allergies (Unverified , 01/07/18) Objective Vital Signs Last 24 Hour Vital Signs Date Time Temp Pulse Resp B/P (MAP) Pulse Ox O2 Delivery O2 Flow Rate FiO2 01/13/18 09:29 68 01/13/18 09:28 68 108/66 01/13/18 09:00 108/66 01/13/18 08:00 96.8 68 18 108/66 (80) 98 01/13/18 07:41 60 20 97 Room Air 21 01/13/18 07:40 55 20 98 Room Air 21 01/13/18 07:38 62 20 95 Room Air 21 01/13/18 07:30 55 20 95 Room Air 21 01/13/18 07:29 98 Room Air 21 01/13/18 07:29 Room Air 21 01/13/18 04:00 64 01/13/18 04:00 98.1 67 20 109/61 (77) 97 01/13/18 01:18 58 18 98 Room Air 21 01/13/18 01:10 53 20 93 Room Air 21 01/13/18 00:00 55 01/13/18 00:00 98.8 60 20 124/62 (82) 98 01/12/18 21:32 65 18 96 Room Air 21 01/12/18 21:17 60 20 94 Room Air 21 01/12/18 20:41 60 18 94 Room Air 21 01/12/18 20:31 Room Air 21 01/12/18 20:31 75 20 95 Room Air 21 01/12/18 20:31 95 Room Air 21 01/12/18 20:18 72 116/59 01/12/18 20:00 98.6 72 22 116/59 (78) 95 01/12/18 20:00 63 01/12/18 20:00 Room Air 01/12/18 16:00 97.3 60 18 125/60 (81) 98 01/12/18 15:41 72 01/12/18 14:26 97.3 70 18 118/70 (86) 98 01/12/18 13:51 56 16 98 Nasal Cannula 2.0 28 01/12/18 13:41 51 16 92 Room Air 21 01/12/18 11:55 66 Height (Feet): 5 Height (Inches): 7.00 Weight (Pounds): 167 General Appearance: no acute distress HEENT: mucous membranes moist Respiratory/Chest: lungs clear Cardiovascular: normal rate Abdomen: soft, non tender Extremities: no edema Neurologic/Psychiatric: alert, oriented x 3, responsive Laboratory Tests Test 01/12/18 14:00 01/13/18 06:20 C-Reactive Protein, Quantitative 2.9 mg/dL (0.00-0.90) H White Blood Count 8.1 K/UL (4.8-10.8) Red Blood Count 4.08 M/UL (4.70-6.10) L Hemoglobin 12.4 G/DL (14.2-18.0) L Hematocrit 38.3 % (42.0-52.0) L Mean Corpuscular Volume 94 FL (80-99) Mean Corpuscular Hemoglobin 30.3 PG (27.0-31.0) Mean Corpuscular Hemoglobin Concent 32.2 G/DL (32.0-36.0) Red Cell Distribution Width 13.8 % (11.6-14.8) Platelet Count 170 K/UL (150-450) Mean Platelet Volume 10.0 FL (6.5-10.1) Neutrophils (%) (Auto) 60.9 % (45.0-75.0) Lymphocytes (%) (Auto) 24.9 % (20.0-45.0) Monocytes (%) (Auto) 9.5 % (1.0-10.0) Eosinophils (%) (Auto) 3.2 % (0.0-3.0) H Basophils (%) (Auto) 1.4 % (0.0-2.0) Sodium Level 144 MMOL/L (136-145) Potassium Level 4.3 MMOL/L (3.5-5.1) Chloride Level 107 MMOL/L (98-107) Carbon Dioxide Level 30 MMOL/L (21-32) Anion Gap 7 mmol/L (5-15) Blood Urea Nitrogen 14 mg/dL (7-18) Creatinine 1.6 MG/DL (0.55-1.30) H Estimat Glomerular Filtration Rate mL/min (>60) Glucose Level 95 MG/DL (74-106) Uric Acid 9.4 MG/DL (2.6-7.2) H Calcium Level 9.1 MG/DL (8.5-10.1) Phosphorus Level 4.2 MG/DL (2.5-4.9) Magnesium Level 1.8 MG/DL (1.8-2.4) Total Bilirubin 0.8 MG/DL (0.2-1.0) Aspartate Amino Transf (AST/SGOT) 24 U/L (15-37) Alanine Aminotransferase (ALT/SGPT) 23 U/L (12-78) Alkaline Phosphatase 58 U/L (46-116) Troponin I 0.745 ng/mL (0.000-0.056) Pro-B-Type Natriuretic Peptide 49347 pg/mL (0-125) H Total Protein 7.2 G/DL (6.4-8.2) Albumin 2.9 G/DL (3.4-5.0) L Globulin 4.3 g/dL Albumin/Globulin Ratio 0.7 (1.0-2.7) L Current Medications Medications (Trade) Dose Ordered Sig/Fritz Route PRN Reason Start Time Stop Time Status Last Admin Dose Admin Acetaminophen (Tylenol) 650 mg Q4H PRN ORAL For Pain 01/10/18 07:00 02/09/18 06:59 Acetylcysteine (Mucomyst) 600 mg BIDRT HHN 01/11/18 22:00 02/10/18 21:59 01/12/18 21:17 Allopurinol (Allopurinol) 300 mg DAILY ORAL 01/12/18 09:00 02/11/18 08:59 01/13/18 09:28 Azithromycin (Zithromax) 250 mg DAILY ORAL 01/10/18 09:00 01/16/18 08:59 01/13/18 09:27 Carvedilol (Coreg) 25 mg EVERY 12 HOURS ORAL 01/10/18 09:00 02/08/18 20:59 01/13/18 09:28 Ceftriaxone Sodium 1 gm/ Dextrose 55 ml @ 110 mls/hr Q24H IVPB 01/10/18 11:00 01/15/18 10:59 01/13/18 10:33 Digoxin (Lanoxin) 0.125 mg DAILY ORAL 01/13/18 09:00 02/08/18 08:59 01/13/18 09:29 Docusate Sodium (Colace) 100 mg THREE TIMES A DAY ORAL 01/11/18 13:00 02/10/18 12:59 01/13/18 09:28 Enoxaparin Sodium (Lovenox) 80 mg EVERY 12 HOURS SUBQ 01/11/18 21:00 02/10/18 20:59 01/13/18 09:40 Furosemide (Lasix) 40 mg DAILY ORAL 01/11/18 09:00 02/10/18 08:59 01/12/18 08:38 Guaifenesin (Mucinex ER) 600 mg TWICE A DAY ORAL 01/10/18 09:00 02/07/18 17:59 01/13/18 09:28 Guaifenesin (Robitussin) 100 mg Q4H PRN ORAL For Cough 01/10/18 07:30 02/07/18 07:29 Ipratropium Vevay (Atrovent) 500 mcg Q6HRT HHN 01/13/18 07:00 01/16/18 06:59 Lisinopril (Zestril) 10 mg DAILY ORAL 01/11/18 09:00 02/08/18 08:59 Magnesium Oxide (Mag-Ox 400mg) 400 mg THREE TIMES A DAY ORAL 01/11/18 13:00 02/10/18 12:59 01/13/18 09:27 Pantoprazole (Protonix) 40 mg DAILY ORAL 01/10/18 09:00 02/07/18 09:38 01/13/18 09:28 Alexis Rivera MD Jan 13, 2018 11:34
[2018-01-13 12:00] VITALS: BP 97/50
--- NOTE | 2018-01-13 13:37 | Diagnostic Imaging Report ---
APPROVED REPORT CPT Code: 00630 Present Symptoms Shortness of breath RIGHT LEG: Venous imaging reveals acute thrombus in the superficial femoral, and popliteal veins. Imaging also reveals patency of the common femoral vein. Chronic thrombus was seen in the superficial femoral and calf veins. The greater saphenous vein is within normal limits. LEFT LEG: Venous imaging reveals a patent deep venous system. There is no evidence of thrombus within the femoral, popliteal or tibial segments. The greater saphenous vein is also within normal limits. Doppler indicates normal spontaneous flow within these segments. ANGIE Edgar was notified of abnormal results at 1042 hours.
--- NOTE | 2018-01-13 14:07 | Cardiac Electrophysiology PN ---
Assessment/Plan Assessment/Plan 1. NSTEMI. The levels are coming down from 3 to 1.5. The patient does not have any chest pain. EF is only 20% to 25%. Awaiting transfer for cardiac catheterization to [facility] 2. Atrial flutter with rapid ventricular response. This is newly diagnosed. Now off Cardizem drip. Continue Dig and Coreg 25 bid Eventually would benefit from atrial flutter ablation. 3. Congestive heart failure, ejection fraction of 20% with BNP of 11,000. On Lasix, Dig, lisinopril and Coreg 4. Hypertension. Continue current therapy and prn Clonidine 5. Possible pneumonia. On IV antibiotic per business analytics intern and ID. 6. Mild renal failure. Cr 1.6. On Mucomyst 600 bid 7. Acute Right leg DVT. On Lovenox in preparation for cardiac cath DW RN and case management Subjective Subjective No CP or SOB. Still awaiting transfer to [facility] for cardiac cath Objective Last 24 Hour Vital Signs Date Time Temp Pulse Resp B/P (MAP) Pulse Ox O2 Delivery O2 Flow Rate FiO2 01/13/18 13:53 52 16 99 Room Air 21 01/13/18 12:00 97.7 67 18 97/50 (66) 94 01/13/18 09:29 68 01/13/18 09:28 68 108/66 01/13/18 09:00 108/66 01/13/18 08:00 67 01/13/18 08:00 96.8 68 18 108/66 (80) 98 01/13/18 07:41 60 20 97 Room Air 01/13/18 07:40 55 20 98 Room Air 21 01/13/18 07:38 62 20 95 Room Air 21 01/13/18 07:30 55 20 95 Room Air 21 01/13/18 07:29 98 Room Air 21 01/13/18 07:29 Room Air 21 01/13/18 04:00 64 01/13/18 04:00 98.1 67 20 109/61 (77) 97 01/13/18 01:18 58 18 98 Room Air 21 01/13/18 01:10 53 20 93 Room Air 21 01/13/18 00:00 55 01/13/18 00:00 98.8 60 20 124/62 (82) 98 01/12/18 21:32 65 18 96 Room Air 21 01/12/18 21:17 60 20 94 Room Air 21 01/12/18 20:41 60 18 94 Room Air 21 01/12/18 20:31 Room Air 21 01/12/18 20:31 75 20 95 Room Air 21 01/12/18 20:31 95 Room Air 21 01/12/18 20:18 72 116/59 01/12/18 20:00 98.6 72 22 116/59 (78) 95 01/12/18 20:00 63 01/12/18 20:00 Room Air 01/12/18 16:00 97.3 60 18 125/60 (81) 98 01/12/18 15:41 72 01/12/18 14:26 97.3 70 18 118/70 (86) 98 Intake and Output 01/12/18 01/13/18 19:00 07:00 Intake Total 1010 ml 240 ml Balance 1010 ml 240 ml Intake Oral 900 ml 240 ml IV Total 110 ml # Voids 1 3 # Bowel Movements 1 Laboratory Tests Test 01/13/18 06:20 White Blood Count 8.1 K/UL (4.8-10.8) Red Blood Count 4.08 M/UL (4.70-6.10) L Hemoglobin 12.4 G/DL (14.2-18.0) L Hematocrit 38.3 % (42.0-52.0) L Mean Corpuscular Volume 94 FL (80-99) Mean Corpuscular Hemoglobin 30.3 PG (27.0-31.0) Mean Corpuscular Hemoglobin Concent 32.2 G/DL (32.0-36.0) Red Cell Distribution Width 13.8 % (11.6-14.8) Platelet Count 170 K/UL (150-450) Mean Platelet Volume 10.0 FL (6.5-10.1) Neutrophils (%) (Auto) 60.9 % (45.0-75.0) Lymphocytes (%) (Auto) 24.9 % (20.0-45.0) Monocytes (%) (Auto) 9.5 % (1.0-10.0) Eosinophils (%) (Auto) 3.2 % (0.0-3.0) H Basophils (%) (Auto) 1.4 % (0.0-2.0) Sodium Level 144 MMOL/L (136-145) Potassium Level 4.3 MMOL/L (3.5-5.1) Chloride Level 107 MMOL/L (98-107) Carbon Dioxide Level 30 MMOL/L (21-32) Anion Gap 7 mmol/L (5-15) Blood Urea Nitrogen 14 mg/dL (7-18) Creatinine 1.6 MG/DL (0.55-1.30) H Estimat Glomerular Filtration Rate mL/min (>60) Glucose Level 95 MG/DL (74-106) Uric Acid 9.4 MG/DL (2.6-7.2) H Calcium Level 9.1 MG/DL (8.5-10.1) Phosphorus Level 4.2 MG/DL (2.5-4.9) Magnesium Level 1.8 MG/DL (1.8-2.4) Total Bilirubin 0.8 MG/DL (0.2-1.0) Aspartate Amino Transf (AST/SGOT) 24 U/L (15-37) Alanine Aminotransferase (ALT/SGPT) 23 U/L (12-78) Alkaline Phosphatase 58 U/L (46-116) Troponin I 0.745 ng/mL (0.000-0.056) Pro-B-Type Natriuretic Peptide 80880 pg/mL (0-125) H Total Protein 7.2 G/DL (6.4-8.2) Albumin 2.9 G/DL (3.4-5.0) L Globulin 4.3 g/dL Albumin/Globulin Ratio 0.7 (1.0-2.7) L Objective HEAD AND NECK: No JVD LUNGS: Coarse rhonchi. CARDIOVASCULAR: Irregular S1 and S2 with no gallop or murmur ABDOMEN: Soft. EXTREMITIES: No pitting edema. Antonio Conde MD Jan 13, 2018 14:07
--- NOTE | 2018-01-13 14:13 | Cardiology Report ---
APPROVED REPORT EKG Measurement Heart [id number] [id number] [id number] Atrial flutter with variable AV block with premature ventricular or aberrantly conducted complexes Indeterminate axis Possible Anterior infarct, age undetermined T wave abnormality, consider inferolateral ischemia Abnormal ECG
--- NOTE | 2018-01-13 15:08 | Pulmonology Progress Note ---
Assessment/Plan Assessment/Plan Pulmonary Follow Up Note Assessment/Plan 1. Respiratory illness, URI/tracheobronchitis versus early pneumonia. 2. Systemic inflammatory response syndrome. 3. Atrial flutter with rapid ventricular response. 4. [id number]-rrhbtlqwr [place], likely demand ischemia in the setting of rapid atrial flutter. 5. 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 6. Remote history of DVT in 2013, off anticoagulation prior to this admission. AC per cards monitor IO monitor for bleeding rate control po labs ok tele cath transfer tomorrow per pt cxr am Subjective Constitutional: Reports: no symptoms HEENT: Repors: no symptoms Respiratory: Reports: no symptoms Cardiovascular: Reports: no symptoms Gastrointestinal/Abdominal: Reports: no symptoms Genitourinary: Reports: no symptoms Allergies: Coded Allergies: No Known Allergies (Unverified , 01/07/18) Subjective doing well this am still in afib no cp nv or bleeding ambulating awaiting transfer to [facility] for cath Objective Vital Signs Noted General Appearance: WD/WN Respiratory/Chest: lungs clear, normal breath sounds Cardiovascular: irregularly irregular Abdomen: soft, non tender, no organomegaly Skin: no lesions 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, no motor/sensory deficits, alert, oriented x 3 Current Medications Medications (Trade) Dose Ordered Sig/Fritz Route PRN Reason Start Time Stop Time Status Last Admin Dose Admin Acetaminophen (Tylenol) 650 mg Q4H PRN ORAL For Pain 01/10/18 07:00 02/09/18 06:59 Acetylcysteine (Mucomyst) 600 mg BIDRT HHN 01/11/18 22:00 02/10/18 21:59 Allopurinol (Allopurinol) 300 mg DAILY ORAL 01/12/18 09:00 02/11/18 08:59 Azithromycin (Zithromax) 250 mg DAILY ORAL 01/10/18 09:00 01/16/18 08:59 01/11/18 08:30 Carvedilol (Coreg) 25 mg EVERY 12 HOURS ORAL 01/10/18 09:00 02/08/18 20:59 01/11/18 22:17 Ceftriaxone Sodium 1 gm/ Dextrose 55 ml @ 110 mls/hr Q24H IVPB 01/10/18 11:00 01/15/18 10:59 01/11/18 11:01 Digoxin (Lanoxin) 0.25 mg DAILY ORAL 01/10/18 09:00 02/08/18 08:59 01/11/18 08:30 Docusate Sodium (Colace) 100 mg THREE TIMES A DAY ORAL 01/11/18 13:00 02/10/18 12:59 Enoxaparin Sodium (Lovenox) 80 mg EVERY 12 HOURS SUBQ 01/11/18 21:00 02/10/18 20:59 01/11/18 22:19 Furosemide (Lasix) 40 mg DAILY ORAL 01/11/18 09:00 02/10/18 08:59 01/11/18 08:42 Guaifenesin (Mucinex ER) 600 mg TWICE A DAY ORAL 01/10/18 09:00 02/07/18 17:59 01/11/18 17:17 Guaifenesin (Robitussin) 100 mg Q4H PRN ORAL For Cough 01/10/18 07:30 02/07/18 07:29 Ipratropium [place] (Atrovent) 500 mcg Q4H PRN HHN Shortness of Breath 01/10/18 07:30 01/13/18 07:29 Ipratropium [place] (Atrovent) 500 mcg Q6HRT HHN 01/10/18 07:00 01/13/18 06:59 01/12/18 02:20 Lisinopril (Zestril) 10 mg DAILY ORAL 01/11/18 09:00 02/08/18 08:59 Magnesium Oxide (Mag-Ox 400mg) 400 mg THREE TIMES A DAY ORAL 01/11/18 13:00 02/10/18 12:59 01/11/18 17:17 Pantoprazole (Protonix) 40 mg DAILY ORAL 01/10/18 09:00 02/07/18 09:38 01/11/18 08:30 Subjective ROS Limited/Unobtainable: No Allergies: Coded Allergies: No Known Allergies (Unverified , 01/07/18) Objective Last 24 Hour Vital Signs Date Time Temp Pulse Resp B/P (MAP) Pulse Ox O2 Delivery O2 Flow Rate FiO2 01/13/18 14:05 63 20 98 Room Air 21 01/13/18 13:53 52 16 99 Room Air 21 01/13/18 12:00 65 01/13/18 12:00 97.7 67 18 97/50 (66) 94 01/13/18 09:29 68 01/13/18 09:28 68 108/66 01/13/18 09:00 Nasal Cannula 2.0 01/13/18 09:00 108/66 01/13/18 08:00 67 01/13/18 08:00 96.8 68 18 108/66 (80) 98 01/13/18 07:41 60 20 97 Room Air 21 01/13/18 07:40 55 20 98 Room Air 21 01/13/18 07:38 62 20 95 Room Air 21 01/13/18 07:30 55 20 95 Room Air 21 01/13/18 07:29 98 Room Air 21 01/13/18 07:29 Room Air 21 01/13/18 04:00 64 01/13/18 04:00 98.1 67 20 109/61 (77) 97 01/13/18 01:18 58 18 98 Room Air 21 01/13/18 01:10 53 20 93 Room Air 21 01/13/18 00:00 55 01/13/18 00:00 98.8 60 20 124/62 (82) 98 01/12/18 21:32 65 18 96 Room Air 21 01/12/18 21:17 60 20 94 Room Air 21 01/12/18 20:41 60 18 94 Room Air 21 01/12/18 20:31 Room Air 21 01/12/18 20:31 75 20 95 Room Air 21 01/12/18 20:31 95 Room Air 21 01/12/18 20:18 72 116/59 01/12/18 20:00 98.6 72 22 116/59 (78) 95 01/12/18 20:00 63 01/12/18 20:00 Room Air 01/12/18 16:00 97.3 60 18 125/60 (81) 98 01/12/18 15:41 72 Intake and Output 01/12/18 01/13/18 19:00 07:00 Intake Total 1010 ml 240 ml Balance 1010 ml 240 ml Intake Oral 900 ml 240 ml IV Total 110 ml # Voids 1 3 # Bowel Movements 1 Laboratory Tests 01/13/18 06:20: White Blood Count 8.1, Red Blood Count 4.08L, Hemoglobin 12.4L, Hematocrit 38.3L , Mean Corpuscular Volume 94, Mean Corpuscular Hemoglobin 30.3, Mean Corpuscular Hemoglobin Concent 32.2, Red Cell Distribution Width 13.8, Platelet Count 170, Mean Platelet Volume 10.0, Neutrophils (%) (Auto) 60.9, Lymphocytes ( %) (Auto) 24.9, Monocytes (%) (Auto) 9.5, Eosinophils (%) (Auto) 3.2H, Basophils (%) (Auto) 1.4, Sodium Level 144, Potassium Level 4.3, Chloride Level 107, Carbon Dioxide Level 30, Anion Gap 7, Blood Urea Nitrogen 14, Creatinine 1.6H, Estimat Glomerular Filtration Rate , Glucose Level 95, Uric Acid 9.4H, Calcium Level 9.1, Phosphorus Level 4.2, Magnesium Level 1.8, Total Bilirubin 0.8, Aspartate Amino Transf (AST/SGOT) 24, Alanine Aminotransferase (ALT/SGPT) 23, Alkaline Phosphatase 58, Troponin I 0.745H, Pro-B-Type Natriuretic Peptide 35086Q, Total Protein 7.2, Albumin 2.9L, Globulin 4.3, Albumin/Globulin Ratio 0.7L Current Medications Medications (Trade) Dose Ordered Sig/Fritz Route PRN Reason Start Time Stop Time Status Last Admin Dose Admin Acetaminophen (Tylenol) 650 mg Q4H PRN ORAL For Pain 01/10/18 07:00 02/09/18 06:59 Acetylcysteine (Mucomyst) 600 mg BIDRT HHN 01/11/18 22:00 02/10/18 21:59 01/12/18 21:17 Allopurinol (Allopurinol) 300 mg DAILY ORAL 01/12/18 09:00 02/11/18 08:59 01/13/18 09:28 Carvedilol (Coreg) 25 mg EVERY 12 HOURS ORAL 01/10/18 09:00 02/08/18 20:59 01/13/18 09:28 Digoxin (Lanoxin) 0.125 mg DAILY ORAL 01/13/18 09:00 02/08/18 08:59 01/13/18 09:29 Docusate Sodium (Colace) 100 mg THREE TIMES A DAY ORAL 01/11/18 13:00 02/10/18 12:59 01/13/18 13:50 Enoxaparin Sodium (Lovenox) 80 mg EVERY 12 HOURS SUBQ 01/11/18 21:00 02/10/18 20:59 01/13/18 09:40 Furosemide (Lasix) 40 mg DAILY ORAL 01/11/18 09:00 02/10/18 08:59 01/12/18 08:38 Guaifenesin (Mucinex ER) 600 mg TWICE A DAY ORAL 01/10/18 09:00 02/07/18 17:59 01/13/18 09:28 Guaifenesin (Robitussin) 100 mg Q4H PRN ORAL For Cough 01/10/18 07:30 02/07/18 07:29 Ipratropium [place] (Atrovent) 500 mcg Q6HRT HHN 01/13/18 07:00 01/16/18 06:59 01/13/18 01:45 Lisinopril (Zestril) 10 mg DAILY ORAL 01/11/18 09:00 02/08/18 08:59 Magnesium Oxide (Mag-Ox 400mg) 400 mg THREE TIMES A DAY ORAL 01/11/18 13:00 02/10/18 12:59 01/13/18 13:50 Pantoprazole (Protonix) 40 mg DAILY ORAL 01/10/18 09:00 02/07/18 09:38 01/13/18 09:28 Robbin Diana MD Jan 13, 2018 15:08
--- NOTE | 2018-01-13 15:15 | Nephrology Progress Note ---
Assessment/Plan Problem List: (1) Renal insufficiency (2) Atrial fibrillation (3) Anemia (4) NSTEMI (non-ST elevated myocardial infarction) (5) Cardiomyopathy Assessment Renal failure ? chronic Atrial Flutter NSTMI, elevated Troponin cardiomyopathy Plan Lasix now PO 2 D Echo low Ej Fx check TSH Urine studies monitor renal parameters per orders per cardio Subjective ROS Limited/Unobtainable: No Constitutional: Reports: malaise Objective Objective Last 24 Hour Vital Signs Date Time Temp Pulse Resp B/P (MAP) Pulse Ox O2 Delivery O2 Flow Rate FiO2 01/13/18 14:05 63 20 98 Room Air 21 01/13/18 13:53 52 16 99 Room Air 21 01/13/18 12:00 65 01/13/18 12:00 97.7 67 18 97/50 (66) 94 01/13/18 09:29 68 01/13/18 09:28 68 108/66 01/13/18 09:00 Nasal Cannula 2.0 01/13/18 09:00 108/66 01/13/18 08:00 67 01/13/18 08:00 96.8 68 18 108/66 (80) 98 01/13/18 07:41 60 20 97 Room Air 21 01/13/18 07:40 55 20 98 Room Air 21 01/13/18 07:38 62 20 95 Room Air 21 01/13/18 07:30 55 20 95 Room Air 21 01/13/18 07:29 98 Room Air 21 01/13/18 07:29 Room Air 21 01/13/18 04:00 64 01/13/18 04:00 98.1 67 20 109/61 (77) 97 01/13/18 01:18 58 18 98 Room Air 21 01/13/18 01:10 53 20 93 Room Air 21 01/13/18 00:00 55 01/13/18 00:00 98.8 60 20 124/62 (82) 98 01/12/18 21:32 65 18 96 Room Air 21 01/12/18 21:17 60 20 94 Room Air 21 01/12/18 20:41 60 18 94 Room Air 21 01/12/18 20:31 Room Air 21 01/12/18 20:31 75 20 95 Room Air 21 01/12/18 20:31 95 Room Air 21 11/25/18 20:18 72 116/59 01/12/18 20:00 98.6 72 22 116/59 (78) 95 01/12/18 20:00 63 01/12/18 20:00 Room Air 01/12/18 16:00 97.3 60 18 125/60 (81) 98 01/12/18 15:41 72 Intake and Output 01/12/18 01/13/18 19:00 07:00 Intake Total 1010 ml 240 ml Balance 1010 ml 240 ml Intake Oral 900 ml 240 ml IV Total 110 ml # Voids 1 3 # Bowel Movements 1 Laboratory Tests 01/13/18 06:20: White Blood Count 8.1, Red Blood Count 4.08L, Hemoglobin 12.4L, Hematocrit 38.3L , Mean Corpuscular Volume 94, Mean Corpuscular Hemoglobin 30.3, Mean Corpuscular Hemoglobin Concent 32.2, Red Cell Distribution Width 13.8, Platelet Count 170, Mean Platelet Volume 10.0, Neutrophils (%) (Auto) 60.9, Lymphocytes ( %) (Auto) 24.9, Monocytes (%) (Auto) 9.5, Eosinophils (%) (Auto) 3.2H, Basophils (%) (Auto) 1.4, Sodium Level 144, Potassium Level 4.3, Chloride Level 107, Carbon Dioxide Level 30, Anion Gap 7, Blood Urea Nitrogen 14, Creatinine 1.6H, Estimat Glomerular Filtration Rate , Glucose Level 95, Uric Acid 9.4H, Calcium Level 9.1, Phosphorus Level 4.2, Magnesium Level 1.8, Total Bilirubin 0.8, Aspartate Amino Transf (AST/SGOT) 24, Alanine Aminotransferase (ALT/SGPT) 23, Alkaline Phosphatase 58, Troponin I 0.745H, Pro-B-Type Natriuretic Peptide 46411D, Total Protein 7.2, Albumin 2.9L, Globulin 4.3, Albumin/Globulin Ratio 0.7L Height (Feet): 5 Height (Inches): 7.00 Weight (Pounds): 167 Cardiovascular: normal rate Respiratory/Chest: decreased breath sounds Abdomen: soft Objective no change Tu Garcia MD Jan 13, 2018 15:15
[2018-01-13 16:00] VITALS: BP 100/65
[2018-01-13 20:00] VITALS: BP 125/73
--- NOTE | 2018-01-13 23:08 | Consultation ---
History of Present Illness General Chief Complaint: Upper Respiratory Illness Referring physician: THEA MIRZA Reason for Consultation: anxiety Present Illness HPI 77-year-old male, lifelong nonsmoker with remote history of DVT greater than 15 years ago, who presented to the ED for evaluation of cough for 2 weeks. the pt has hx of anxiety d/o and insomnia. the pt was able to understand and process the info was given to him in regards to medical condition. the pt has capacity. the pts anxiety is appropriate Allergies: Coded Allergies: No Known Allergies (Unverified , 01/07/18) Medication History Scheduled Acetylcysteine* (Acetylcysteine*), 600 MG ORAL TWICE A DAY, (Reported) Allopurinol* (Allopurinol*), 300 MG ORAL DAILY, (Reported) Azithromycin* (Zithromax*), 250 MG ORAL DAILY, (Reported) Carvedilol (Coreg), 25 MG ORAL EVERY 12 HOURS, (Reported) Ceftazidime Pentahydrate/D5w (Ceftazidime 1 Gm Piggyback), 1 GM IV DAILY, ( Reported) Digoxin* (Digoxin*), 0.25 MG ORAL DAILY, (Reported) Docusate Sodium* (Colace*), 100 MG ORAL THREE TIMES A DAY, (Reported) Enoxaparin* (Lovenox*), 80 MG SUBQ EVERY 12 HOURS, (Reported) Furosemide* (Lasix*), 40 MG ORAL DAILY, (Reported) Guaifenesin (Guaifenesin ER), 600 MG ORAL BID, (Reported) Ipratropium [place] 0.5MG/2.5ML (Ipratropium [place] 0.5MG/2.5ML), 0.5 MG HHN Q6H, (Reported) Lisinopril* (Lisinopril*), 10 MG ORAL DAILY, (Reported) Magnesium Oxide (Mag-Oxide), 400 MG PO THREE TIMES A DAY, (Reported) Pantoprazole* (Protonix*), 40 MG ORAL DAILY, (Reported) Scheduled PRN Acetaminophen* (Acetaminophen 325MG Tablet*), 650 MG ORAL Q4H PRN for Mild Pain/ Temp > 100.5, (Reported) Guaifenesin* (Guaifenesin), 5 ML ORAL Q4H PRN for For Cough, (Reported) Ipratropium [place] 0.5MG/2.5ML (Ipratropium [place] 0.5MG/2.5ML), 0.5 MG HHN Q4HR PRN for Shortness of Breath, (Reported) Patient History Limited by: medical condition History Provided By: Patient, Medical Record, PMD Healthcare decision maker Resuscitation status Advanced Directive on File Past Medical/Surgical History Past Medical/Surgical History: (1) Atrial flutter (2) Renal insufficiency (3) Atrial fibrillation (4) Anemia (5) NSTEMI (non-ST elevated myocardial infarction) (6) Cardiomyopathy Review of Systems Psychiatric: Reports: prior hx, anxiety, depressed feelings, emotional problems Physical Exam General Appearance: no apparent distress, alert Neurologic: oriented x 3, responsive, depressed affect Last 24 Hour Vital Signs Date Time Temp Pulse Resp B/P (MAP) Pulse Ox O2 Delivery O2 Flow Rate FiO2 01/13/18 21:38 58 20 98 Room Air 21 01/13/18 20:22 76 20 99 Room Air 21 01/13/18 20:20 65 125/73 01/13/18 20:12 75 18 98 Room Air 21 01/13/18 20:12 98 Room Air 21 01/13/18 20:12 Room Air 21 01/13/18 20:00 98.6 66 18 125/73 (90) 98 01/13/18 16:00 70 01/13/18 16:00 97.3 64 18 100/65 (77) 99 01/13/18 14:05 63 20 98 Room Air 21 01/13/18 13:53 52 16 99 Room Air 21 01/13/18 12:00 65 01/13/18 12:00 97.7 67 18 97/50 (66) 94 01/13/18 09:29 68 01/13/18 09:28 68 108/66 01/13/18 09:00 Nasal Cannula 2.0 01/13/18 09:00 108/66 01/13/18 08:00 67 01/13/18 08:00 96.8 68 18 108/66 (80) 98 01/13/18 07:41 60 20 97 Room Air 21 01/13/18 07:40 55 20 98 Room Air 21 01/13/18 07:38 62 20 95 Room Air 21 01/13/18 07:30 55 20 95 Room Air 21 01/13/18 07:29 98 Room Air 21 01/13/18 07:29 Room Air 21 01/13/18 04:00 64 01/13/18 04:00 98.1 67 20 109/61 (77) 97 01/13/18 01:18 58 18 98 Room Air 21 01/13/18 01:10 53 20 93 Room Air 21 01/13/18 00:00 55 01/13/18 00:00 98.8 60 20 124/62 (82) 98 Intake and Output 01/12/18 01/13/18 19:00 07:00 Intake Total 1010 ml 240 ml Balance 1010 ml 240 ml Intake Oral 900 ml 240 ml IV Total 110 ml # Voids 1 3 # Bowel Movements 1 Laboratory Tests Test 01/13/18 06:20 White Blood Count 8.1 K/UL (4.8-10.8) Red Blood Count 4.08 M/UL (4.70-6.10) L Hemoglobin 12.4 G/DL (14.2-18.0) L Hematocrit 38.3 % (42.0-52.0) L Mean Corpuscular Volume 94 FL (80-99) Mean Corpuscular Hemoglobin 30.3 PG (27.0-31.0) Mean Corpuscular Hemoglobin Concent 32.2 G/DL (32.0-36.0) Red Cell Distribution Width 13.8 % (11.6-14.8) Platelet Count 170 K/UL (150-450) Mean Platelet Volume 10.0 FL (6.5-10.1) Neutrophils (%) (Auto) 60.9 % (45.0-75.0) Lymphocytes (%) (Auto) 24.9 % (20.0-45.0) Monocytes (%) (Auto) 9.5 % (1.0-10.0) Eosinophils (%) (Auto) 3.2 % (0.0-3.0) H Basophils (%) (Auto) 1.4 % (0.0-2.0) Sodium Level 144 MMOL/L (136-145) Potassium Level 4.3 MMOL/L (3.5-5.1) Chloride Level 107 MMOL/L (98-107) Carbon Dioxide Level 30 MMOL/L (21-32) Anion Gap 7 mmol/L (5-15) Blood Urea Nitrogen 14 mg/dL (7-18) Creatinine 1.6 MG/DL (0.55-1.30) H Estimat Glomerular Filtration Rate mL/min (>60) Glucose Level 95 MG/DL (74-106) Uric Acid 9.4 MG/DL (2.6-7.2) H Calcium Level 9.1 MG/DL (8.5-10.1) Phosphorus Level 4.2 MG/DL (2.5-4.9) Magnesium Level 1.8 MG/DL (1.8-2.4) Total Bilirubin 0.8 MG/DL (0.2-1.0) Aspartate Amino Transf (AST/SGOT) 24 U/L (15-37) Alanine Aminotransferase (ALT/SGPT) 23 U/L (12-78) Alkaline Phosphatase 58 U/L (46-116) Troponin I 0.745 ng/mL (0.000-0.056) Pro-B-Type Natriuretic Peptide 62202 pg/mL (0-125) H Total Protein 7.2 G/DL (6.4-8.2) Albumin 2.9 G/DL (3.4-5.0) L Globulin 4.3 g/dL Albumin/Globulin Ratio 0.7 (1.0-2.7) L Height (Feet): 5 Height (Inches): 7.00 Weight (Pounds): 167 Medications Current Medications Medications (Trade) Dose Ordered Sig/Fritz Route PRN Reason Start Time Stop Time Status Last Admin Dose Admin Acetaminophen (Tylenol) 650 mg Q4H PRN ORAL For Pain 01/10/18 07:00 02/09/18 06:59 Acetylcysteine (Mucomyst) 600 mg BIDRT HHN 01/11/18 22:00 02/10/18 21:59 01/13/18 21:38 Allopurinol (Allopurinol) 300 mg DAILY ORAL 01/12/18 09:00 02/11/18 08:59 01/13/18 09:28 Carvedilol (Coreg) 25 mg EVERY 12 HOURS ORAL 01/10/18 09:00 02/08/18 20:59 01/13/18 20:20 Digoxin (Lanoxin) 0.125 mg DAILY ORAL 01/13/18 09:00 02/08/18 08:59 01/13/18 09:29 Docusate Sodium (Colace) 100 mg THREE TIMES A DAY ORAL 01/11/18 13:00 02/10/18 12:59 01/13/18 17:29 Enoxaparin Sodium (Lovenox) 80 mg EVERY 12 HOURS SUBQ 01/11/18 21:00 02/10/18 20:59 01/13/18 20:21 Furosemide (Lasix) 40 mg DAILY ORAL 01/11/18 09:00 02/10/18 08:59 01/12/18 08:38 Guaifenesin (Mucinex ER) 600 mg TWICE A DAY ORAL 01/10/18 09:00 02/07/18 17:59 01/13/18 17:29 Guaifenesin (Robitussin) 100 mg Q4H PRN ORAL For Cough 01/10/18 07:30 02/07/18 07:29 Ipratropium [place] (Atrovent) 500 mcg Q6HRT HHN 01/13/18 07:00 01/16/18 06:59 01/13/18 21:39 Lisinopril (Zestril) 10 mg DAILY ORAL 01/11/18 09:00 02/08/18 08:59 Magnesium Oxide (Mag-Ox 400mg) 400 mg THREE TIMES A DAY ORAL 01/11/18 13:00 02/10/18 12:59 01/13/18 17:29 Pantoprazole (Protonix) 40 mg DAILY ORAL 01/10/18 09:00 02/07/18 09:38 01/13/18 09:28 Assessment/Plan Assessment/Plan anxiety d/o ativan prn the pt has capacity Rozina Angela MD Jan 13, 2018 23:08
[2018-01-14] VITALS: BP 122/78
[2018-01-14] MEDS: Ipratropium 0.02% Inh Soln 2.5ml UD HHN SCH ×2 (01:55→09:42)
[2018-01-14 04:00] VITALS: BP 96/71
[2018-01-14 08:00] VITALS: BP 118/71
[2018-01-14] MEDS: guaiFENesin ER 600mg tab ORAL SCH ×2 (08:26→17:21)
[2018-01-14] MEDS: Furosemide 40mg tab ORAL SCH (08:26)
[2018-01-14] MEDS: Lisinopril 10mg tab ORAL SCH (08:26)
[2018-01-14] MEDS: Docusate 100mg cap ORAL SCH ×3 (08:26→17:21)
[2018-01-14] MEDS: Enoxaparin 80mg Inj SUBQ SCH (08:28)
--- NOTE | 2018-01-14 08:43 | Pulmonology Progress Note ---
Assessment/Plan Problems: (1) NSTEMI (non-ST elevated myocardial infarction) (2) Atrial fibrillation (3) Renal insufficiency (4) Atrial flutter (5) Anemia (6) Cardiomyopathy Assessment/Plan ASSESSMENT: 1. Respiratory illness, URI/tracheobronchitis versus early pneumonia. 2. Systemic inflammatory response syndrome. 3. Atrial flutter with rapid ventricular response. 4. Wqz-RY-kvldkuqyl [place], likely demand ischemia in the setting of rapid atrial flutter. 5. 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 6. DVT PLAN: Optimize pulmonary hygiene/mobilize as tolerated A/C F/U cards recs ---> TRANSFER TO [facility] for CARDIAC CATH Aspiration precautions CXR Subjective Allergies: Coded Allergies: No Known Allergies (Unverified , 01/07/18) Subjective AFVSS, rate controlled AF, on RA No cough, no SOB, no F/C, no CP Awaiting transfer to [facility] Objective Last 24 Hour Vital Signs Date Time Temp Pulse Resp B/P (MAP) Pulse Ox O2 Delivery O2 Flow Rate FiO2 01/14/18 08:26 118/71 01/14/18 04:00 98.2 63 17 96/71 (79) 94 01/14/18 03:53 63 01/14/18 02:05 54 18 99 Room Air 21 01/14/18 01:55 51 16 96 Room Air 21 01/14/18 00:00 98.7 73 19 122/78 (93) 97 01/13/18 23:22 69 01/13/18 21:45 61 20 98 Room Air 21 01/13/18 21:38 58 20 98 Room Air 21 01/13/18 20:22 76 20 99 Room Air 21 01/13/18 20:20 65 125/73 01/13/18 20:12 75 18 98 Room Air 21 01/13/18 20:12 98 Room Air 21 01/13/18 20:12 Room Air 21 01/13/18 20:00 98.6 66 18 125/73 (90) 98 01/13/18 19:02 63 01/13/18 16:00 70 01/13/18 16:00 97.3 64 18 100/65 (77) 99 01/13/18 14:05 63 20 98 Room Air 21 01/13/18 13:53 52 16 99 Room Air 21 01/13/18 12:00 65 01/13/18 12:00 97.7 67 18 97/50 (66) 94 01/13/18 09:29 68 01/13/18 09:28 68 108/66 01/13/18 09:00 Nasal Cannula 2.0 01/13/18 09:00 108/66 Intake and Output 01/13/18 01/14/18 18:59 06:59 Intake Total 840 ml 360 ml Balance 840 ml 360 ml Intake Oral 840 ml 360 ml # Voids 3 3 # Bowel Movements 1 General Appearance: WD/WN, no acute distress HEENT: normocephalic, atraumatic, anicteric, mucous membranes moist Respiratory/Chest: chest wall non-tender, lungs clear, normal breath sounds, no respiratory distress, no accessory muscle use Cardiovascular: irregularly irregular Abdomen: normal bowel sounds, soft, non tender, no organomegaly, non distended , no mass Extremities: no cyanosis, no clubbing, no edema Current Medications Medications (Trade) Dose Ordered Sig/Fritz Route PRN Reason Start Time Stop Time Status Last Admin Dose Admin Acetaminophen (Tylenol) 650 mg Q4H PRN ORAL For Pain 01/10/18 07:00 02/09/18 06:59 Acetylcysteine (Mucomyst) 600 mg BIDRT HHN 01/11/18 22:00 02/10/18 21:59 01/13/18 21:38 Allopurinol (Allopurinol) 300 mg DAILY ORAL 01/12/18 09:00 02/11/18 08:59 01/14/18 08:26 Carvedilol (Coreg) 25 mg EVERY 12 HOURS ORAL 01/10/18 09:00 02/08/18 20:59 01/13/18 20:20 Digoxin (Lanoxin) 0.125 mg DAILY ORAL 01/13/18 09:00 02/08/18 08:59 01/13/18 09:29 Docusate Sodium (Colace) 100 mg THREE TIMES A DAY ORAL 01/11/18 13:00 02/10/18 12:59 01/14/18 08:26 Enoxaparin Sodium (Lovenox) 80 mg EVERY 12 HOURS SUBQ 01/11/18 21:00 02/10/18 20:59 01/14/18 08:28 Furosemide (Lasix) 40 mg DAILY ORAL 01/11/18 09:00 02/10/18 08:59 01/14/18 08:26 Guaifenesin (Mucinex ER) 600 mg TWICE A DAY ORAL 01/10/18 09:00 02/07/18 17:59 01/14/18 08:26 Guaifenesin (Robitussin) 100 mg Q4H PRN ORAL For Cough 01/10/18 07:30 02/07/18 07:29 Ipratropium [place] (Atrovent) 500 mcg Q6HRT HHN 01/13/18 07:00 01/16/18 06:59 01/14/18 01:55 Lisinopril (Zestril) 10 mg DAILY ORAL 01/11/18 09:00 02/08/18 08:59 01/14/18 08:26 Magnesium Oxide (Mag-Ox 400mg) 400 mg THREE TIMES A DAY ORAL 01/11/18 13:00 02/10/18 12:59 01/13/18 17:29 Pantoprazole (Protonix) 40 mg DAILY ORAL 01/10/18 09:00 02/07/18 09:38 01/14/18 08:26 Wally Chowdhury MD Jan 14, 2018 08:43
[2018-01-14] MEDS: Carvedilol 25mg Tab ORAL SCH (09:00)
[2018-01-14] MEDS: Digoxin 0.125mg tab ORAL SCH (09:00)
[2018-01-14] MEDS: Magnesium Oxide 400mg tab ORAL SCH ×3 (09:07→17:21)
[2018-01-14] MEDS ORDERED: Ipratropium 0.02% Inh Soln 2.5ml UD HHN PRN (09:15)
[2018-01-14] MEDS: Acetylcysteine 20% Soln 4ml HHN SCH (09:41)
--- NOTE | 2018-01-14 10:50 | Nephrology Progress Note ---
Assessment/Plan Problem List: (1) Renal insufficiency (2) Atrial fibrillation (3) Anemia (4) NSTEMI (non-ST elevated myocardial infarction) (5) Cardiomyopathy Assessment Renal failure ? chronic Atrial Flutter NSTMI, elevated Troponin cardiomyopathy Plan Lasix now PO 2 D Echo low Ej Fx check TSH Urine studies monitor renal parameters per orders per cardio Subjective ROS Limited/Unobtainable: No Constitutional: Reports: malaise Objective Objective Last 24 Hour Vital Signs Date Time Temp Pulse Resp B/P (MAP) Pulse Ox O2 Delivery O2 Flow Rate FiO2 01/14/18 09:50 71 20 97 Room Air 21 01/14/18 09:48 74 18 97 Room Air 21 01/14/18 09:47 74 20 21 01/14/18 09:47 Room Air 21 01/14/18 09:46 97 Room Air 21 01/14/18 09:00 Nasal Cannula 2.0 01/14/18 09:00 54 01/14/18 08:26 118/71 01/14/18 08:00 98.1 70 18 118/71 (87) 97 01/14/18 08:00 72 01/14/18 04:00 98.2 63 17 96/71 (79) 94 01/14/18 03:53 63 01/14/18 02:05 54 18 99 Room Air 21 01/14/18 01:55 51 16 96 Room Air 21 01/14/18 00:00 98.7 73 19 122/78 (93) 97 01/13/18 23:22 69 01/13/18 21:45 61 20 98 Room Air 21 01/13/18 21:38 58 20 98 Room Air 21 01/13/18 20:22 76 20 99 Room Air 21 01/13/18 20:20 65 125/73 01/13/18 20:12 75 18 98 Room Air 21 01/13/18 20:12 98 Room Air 21 01/13/18 20:12 Room Air 21 01/13/18 20:00 98.6 66 18 125/73 (90) 98 01/13/18 19:02 63 01/13/18 16:00 70 01/13/18 16:00 97.3 64 18 100/65 (77) 99 01/13/18 14:05 63 20 98 Room Air 21 01/13/18 13:53 52 16 99 Room Air 21 01/13/18 12:00 65 01/13/18 12:00 97.7 67 18 97/50 (66) 94 Intake and Output 01/13/18 01/14/18 19:00 07:00 Intake Total 840 ml 360 ml Balance 840 ml 360 ml Intake Oral 840 ml 360 ml # Voids 3 3 # Bowel Movements 1 Height (Feet): 5 Height (Inches): 7.00 Weight (Pounds): 165 General Appearance: no apparent distress Cardiovascular: arrhythmia Respiratory/Chest: decreased breath sounds Abdomen: soft Objective no change Tu Garcia MD Jan 14, 2018 10:50
[2018-01-14 12:00] VITALS: BP 106/76
--- NOTE | 2018-01-14 12:38 | Infectious Diseases Prog Note ---
Assessment/Plan Assessment/Plan A; Pneumonia/ bronchitis treated CHF, EF=20-25% Atrial flutter Aortic stenosis Mitral regurgitation renal failure DVT of R leg P; observe off antibiotic Subjective ROS Limited/Unobtainable: No Constitutional: Reports: no symptoms Respiratory: Reports: no symptoms Cardiovascular: Reports: no symptoms Gastrointestinal/Abdominal: Reports: no symptoms Genitourinary: Reports: no symptoms Allergies: Coded Allergies: No Known Allergies (Unverified , 01/07/18) Objective Vital Signs Last 24 Hour Vital Signs Date Time Temp Pulse Resp B/P (MAP) Pulse Ox O2 Delivery O2 Flow Rate FiO2 01/14/18 09:50 71 20 97 Room Air 21 01/14/18 09:48 74 18 97 Room Air 21 01/14/18 09:47 74 20 21 01/14/18 09:47 Room Air 21 01/14/18 09:46 97 Room Air 21 01/14/18 09:00 Nasal Cannula 2.0 01/14/18 09:00 54 01/14/18 08:26 118/71 01/14/18 08:00 98.1 70 18 118/71 (87) 97 01/14/18 08:00 72 01/14/18 04:00 98.2 63 17 96/71 (79) 94 01/14/18 03:53 63 01/14/18 02:05 54 18 99 Room Air 21 01/14/18 01:55 51 16 96 Room Air 21 01/14/18 00:00 98.7 73 19 122/78 (93) 97 01/13/18 23:22 69 01/13/18 21:45 61 20 98 Room Air 21 01/13/18 21:38 58 20 98 Room Air 21 01/13/18 20:22 76 20 99 Room Air 21 01/13/18 20:20 65 125/73 01/13/18 20:12 75 18 98 Room Air 21 01/13/18 20:12 98 Room Air 21 01/13/18 20:12 Room Air 21 01/13/18 20:00 98.6 66 18 125/73 (90) 98 01/13/18 19:02 63 01/13/18 16:00 70 01/13/18 16:00 97.3 64 18 100/65 (77) 99 01/13/18 14:05 63 20 98 Room Air 21 01/13/18 13:53 52 16 99 Room Air 21 Height (Feet): 5 Height (Inches): 7.00 Weight (Pounds): 165 General Appearance: no acute distress Respiratory/Chest: lungs clear Cardiovascular: normal rate Abdomen: soft, non tender Extremities: no edema Neurologic/Psychiatric: alert, responsive Current Medications Medications (Trade) Dose Ordered Sig/Fritz Route PRN Reason Start Time Stop Time Status Last Admin Dose Admin Acetaminophen (Tylenol) 650 mg Q4H PRN ORAL For Pain 01/10/18 07:00 02/09/18 06:59 Acetylcysteine (Mucomyst) 600 mg BIDRT HHN 01/11/18 22:00 02/10/18 21:59 01/14/18 09:41 Allopurinol (Allopurinol) 300 mg DAILY ORAL 01/12/18 09:00 02/11/18 08:59 01/14/18 08:26 Carvedilol (Coreg) 25 mg EVERY 12 HOURS ORAL 01/10/18 09:00 02/08/18 20:59 01/13/18 20:20 Digoxin (Lanoxin) 0.125 mg DAILY ORAL 01/13/18 09:00 02/08/18 08:59 01/13/18 09:29 Docusate Sodium (Colace) 100 mg THREE TIMES A DAY ORAL 01/11/18 13:00 02/10/18 12:59 01/14/18 12:18 Enoxaparin Sodium (Lovenox) 80 mg EVERY 12 HOURS SUBQ 01/11/18 21:00 02/10/18 20:59 01/14/18 08:28 Furosemide (Lasix) 40 mg DAILY ORAL 01/11/18 09:00 02/10/18 08:59 01/14/18 08:26 Guaifenesin (Mucinex ER) 600 mg TWICE A DAY ORAL 01/10/18 09:00 02/07/18 17:59 01/14/18 08:26 Guaifenesin (Robitussin) 100 mg Q4H PRN ORAL For Cough 01/10/18 07:30 02/07/18 07:29 Ipratropium [place] (Atrovent) 500 mcg Q4H PRN HHN Shortness of Breath 01/14/18 09:15 01/19/18 09:14 Ipratropium [place] (Atrovent) 500 mcg Q6HRT HHN 01/13/18 07:00 01/16/18 06:59 01/14/18 09:42 Lisinopril (Zestril) 10 mg DAILY ORAL 01/11/18 09:00 02/08/18 08:59 01/14/18 08:26 Magnesium Oxide (Mag-Ox 400mg) 400 mg THREE TIMES A DAY ORAL 01/11/18 13:00 02/10/18 12:59 01/14/18 12:18 Pantoprazole (Protonix) 40 mg DAILY ORAL 01/10/18 09:00 02/07/18 09:38 01/14/18 08:26 Alexis Rivera MD Jan 14, 2018 12:37
--- NOTE | 2018-01-14 12:52 | GI Progress Note ---
Assessment/Plan Problems: (1) Anemia ICD Codes: D64.9 - Anemia, unspecified SNOMED: 017334453 Status: stable Status Narrative Discussed with Dr. Boo. Assessment/Plan OB stool r/o GI bleed >> negative fu cardiology recommendations >> transfer to [facility] for cardiac cath no urgent GI procedures needed at this time advance diet monitor H&H, prn transfusions bowel regime ppi zofran prn fu labs outpatient GI procedures, will require cardiac clearance prior. The patient was seen and examined at bedside and all new and available data was reviewed in the patients chart. I agree with the above findings, impression and plan. (Patient seen earlier today. Signature stamp does not reflect patient encounter time.). - Phoenix Boo MD Subjective Gastrointestinal/Abdominal: Reports: no symptoms Objective Last 24 Hour Vital Signs Date Time Temp Pulse Resp B/P (MAP) Pulse Ox O2 Delivery O2 Flow Rate FiO2 01/14/18 12:00 98.1 66 18 106/76 (86) 95 01/14/18 09:50 71 20 97 Room Air 01/14/18 09:48 74 18 97 Room Air 01/14/18 09:47 74 20 21 01/14/18 09:47 Room Air 01/14/18 09:46 97 Room Air 01/14/18 09:00 Nasal Cannula 2.0 01/14/18 09:00 54 01/14/18 08:26 118/71 01/14/18 08:00 98.1 70 18 118/71 (87) 97 01/14/18 08:00 72 01/14/18 04:00 98.2 63 17 96/71 (79) 94 01/14/18 03:53 63 01/14/18 02:05 54 18 99 Room Air 21 01/14/18 01:55 51 16 96 Room Air 01/14/18 00:00 98.7 73 19 122/78 (93) 97 01/13/18 23:22 69 01/13/18 21:45 61 20 98 Room Air 21 01/13/18 21:38 58 20 98 Room Air 21 01/13/18 20:22 76 20 99 Room Air 21 01/13/18 20:20 65 125/73 01/13/18 20:12 75 18 98 Room Air 21 01/13/18 20:12 98 Room Air 21 01/13/18 20:12 Room Air 21 01/13/18 20:00 98.6 66 18 125/73 (90) 98 01/13/18 19:02 63 01/13/18 16:00 70 01/13/18 16:00 97.3 64 18 100/65 (77) 99 01/13/18 14:05 63 20 98 Room Air 21 01/13/18 13:53 52 16 99 Room Air 21 Intake and Output 01/13/18 01/14/18 19:00 07:00 Intake Total 840 ml 360 ml Balance 840 ml 360 ml Intake Oral 840 ml 360 ml # Voids 3 3 # Bowel Movements 1 Height (Feet): 5 Height (Inches): 7.00 Weight (Pounds): 165 General Appearance: WD/WN, no apparent distress, alert Cardiovascular: normal rate Respiratory/Chest: normal breath sounds, no respiratory distress Abdominal Exam: normal bowel sounds, non tender, soft Extremities: normal range of motion, non-tender Juarez Mera POKER ROOM MANAGER Jan 14, 2018 12:52
--- NOTE | 2018-01-14 14:24 | General Progress Note ---
Assessment/Plan Status: stable Assessment/Plan # Thrombocytopenia - most likely related to PNA infection. --> Hep panel and HIV are both negative --> US abd shows no cirrhosis nor hsm --> Peripheral smear ordered to evaluate for blasts /schistocytes --> abx and other meds have been reviewed --> ok for ppx if plt >50k w/ with lovenox --> Transfuse if Plt < 20k and fever, or if Plt < 10k without fever # Acute right leg DVT. --> on lovenox given cardiac cath upcoming --> eliquis on hold --> recs by Dr. Conde appreciated # Anemia of chronic disease due to underlying chronic medical issues, multifactorial. --> Anemia w/u has been reviewed. Ferritin at 450. --> WIll trend CBC as needed. --> hgb goal >7. Transfuse prn. --> No evidence of hemolysis noted. # PNA. CXR has been reviewed. --> Pt completed abx # Myocardial infarction. --> Transfer to [facility] in preparation for Cardiac Cath on Saturday. # Atrial flutter with rapid ventricular response. Subjective Date patient seen: Jan 14, 2018 Hematologic/Lymphatic: Reports: anemia Allergies: Coded Allergies: No Known Allergies (Unverified , 01/07/18) All Systems: reviewed and negative except above Subjective Pt awake and alert. No acute events. H/H stable. Transfer to [facility] in preparation for Cardiac Cath on Saturday. Objective Last 24 Hour Vital Signs Date Time Temp Pulse Resp B/P (MAP) Pulse Ox O2 Delivery O2 Flow Rate FiO2 01/14/18 13:30 Room Air 01/14/18 13:00 Room Air 01/14/18 12:00 98.1 66 18 106/76 (86) 95 01/14/18 12:00 63 01/14/18 09:50 71 20 97 Room Air 01/14/18 09:48 74 18 97 Room Air 01/14/18 09:47 74 20 21 01/14/18 09:47 Room Air 01/14/18 09:46 97 Room Air 01/14/18 09:00 Nasal Cannula 2.0 01/14/18 09:00 54 01/14/18 08:26 118/71 01/14/18 08:00 98.1 70 18 118/71 (87) 97 01/14/18 08:00 72 01/14/18 07:00 Room Air 21 01/14/18 07:00 Room Air 21 01/14/18 04:00 98.2 63 17 96/71 (79) 94 01/14/18 03:53 63 01/14/18 02:05 54 18 99 Room Air 21 01/14/18 01:55 51 16 96 Room Air 21 01/14/18 00:00 98.7 73 19 122/78 (93) 97 01/13/18 23:22 69 01/13/18 21:45 61 20 98 Room Air 21 01/13/18 21:38 58 20 98 Room Air 21 01/13/18 20:22 76 20 99 Room Air 21 01/13/18 20:20 65 125/73 01/13/18 20:12 75 18 98 Room Air 21 01/13/18 20:12 98 Room Air 21 01/13/18 20:12 Room Air 21 01/13/18 20:00 98.6 66 18 125/73 (90) 98 01/13/18 19:02 63 01/13/18 16:00 70 01/13/18 16:00 97.3 64 18 100/65 (77) 99 Intake and Output 01/13/18 01/14/18 19:00 07:00 Intake Total 840 ml 360 ml Balance 840 ml 360 ml Intake Oral 840 ml 360 ml # Voids 3 3 # Bowel Movements 1 Height (Feet): 5 Height (Inches): 7.00 Weight (Pounds): 165 Objective PHYSICAL EXAMINATION: VITAL SIGNS: Have been reviewed. GENERAL: No acute distress. HEENT: Pupils equally reactive to light and accommodation. NECK: Supple. No adenopathy. No JVD. CARDIOVASCULAR: Regular rate and rhythm. No murmurs. LUNGS: Clear to auscultation bilaterally. No crackles. No wheezes. ABDOMEN: Soft and nontender. No organomegaly. EXTREMITIES: No cyanosis, no clubbing, no edema. Bruce Loya MD Jan 14, 2018 14:24
--- NOTE | 2018-01-14 15:48 | General Progress Note ---
Assessment/Plan Problem List: (1) Renal insufficiency ICD Codes: N28.9 - Disorder of kidney and ureter, unspecified SNOMED: 332459468, 201196893 (2) Atrial fibrillation ICD Codes: I48.91 - Unspecified atrial fibrillation SNOMED: 39976961 (3) Anemia ICD Codes: D64.9 - Anemia, unspecified SNOMED: 244047935 (4) NSTEMI (non-ST elevated myocardial infarction) ICD Codes: I21.4 - Non-ST elevation (NSTEMI) myocardial infarction SNOMED: 174710921, 097223821 (5) Cardiomyopathy ICD Codes: I42.9 - Cardiomyopathy, unspecified SNOMED: 04929711 Assessment/Plan afebrile going to [facility] cardiac cath see dc summary for details Subjective ROS Limited/Unobtainable: Yes Allergies: Coded Allergies: No Known Allergies (Unverified , 01/07/18) Objective Last 24 Hour Vital Signs Date Time Temp Pulse Resp B/P (MAP) Pulse Ox O2 Delivery O2 Flow Rate FiO2 01/14/18 13:30 Room Air 01/14/18 13:00 Room Air 01/14/18 12:00 98.1 66 18 106/76 (86) 95 01/14/18 12:00 63 01/14/18 09:50 71 20 97 Room Air 01/14/18 09:48 74 18 97 Room Air 01/14/18 09:47 74 20 21 01/14/18 09:47 Room Air 01/14/18 09:46 97 Room Air 01/14/18 09:00 Nasal Cannula 2.0 01/14/18 09:00 54 01/14/18 08:26 118/71 01/14/18 08:00 98.1 70 18 118/71 (87) 97 01/14/18 08:00 72 01/14/18 07:00 Room Air 21 01/14/18 07:00 Room Air 01/14/18 04:00 98.2 63 17 96/71 (79) 94 01/14/18 03:53 63 01/14/18 02:05 54 18 99 Room Air 01/14/18 01:55 51 16 96 Room Air 01/14/18 00:00 98.7 73 19 122/78 (93) 97 01/13/18 23:22 69 01/13/18 21:45 61 20 98 Room Air 21 01/13/18 21:38 58 20 98 Room Air 21 01/13/18 20:22 76 20 99 Room Air 21 01/13/18 20:20 65 125/73 01/13/18 20:12 75 18 98 Room Air 21 01/13/18 20:12 98 Room Air 21 01/13/18 20:12 Room Air 21 01/13/18 20:00 98.6 66 18 125/73 (90) 98 01/13/18 19:02 63 01/13/18 16:00 70 01/13/18 16:00 97.3 64 18 100/65 (77) 99 Intake and Output 01/13/18 01/14/18 19:00 07:00 Intake Total 840 ml 360 ml Balance 840 ml 360 ml Intake Oral 840 ml 360 ml # Voids 3 3 # Bowel Movements 1 Height (Feet): 5 Height (Inches): 7.00 Weight (Pounds): 165 Inocencia Watt MD Jan 14, 2018 15:48
--- NOTE | 2018-01-14 15:48 | Cardiac Electrophysiology PN ---
Assessment/Plan Assessment/Plan 1. NSTEMI. The levels are coming down from 3 to 1.5. The patient does not have any chest pain. EF is only 20% to 25%. Transfer today for cardiac catheterization tomorrow 2. Atrial flutter with rapid ventricular response. This is newly diagnosed. Now off Cardizem drip. Continue Dig and Coreg 25 bid Eventually would benefit from atrial flutter ablation. 3. Congestive heart failure, ejection fraction of 20% with BNP of 11,000. On Lasix, Dig, lisinopril and Coreg 4. Hypertension. Continue current therapy and prn Clonidine 5. Possible pneumonia. On IV antibiotic per cloth edge singer and ID. 6. Mild renal failure. Cr 1.6. On Mucomyst 600 bid 7. Acute Right leg DVT. On Lovenox in preparation for cardiac cath DW RN and case management Subjective Subjective No CP or SOB. Awaiting transfer to [facility] for cardiac cath. at bedside Objective Last 24 Hour Vital Signs Date Time Temp Pulse Resp B/P (MAP) Pulse Ox O2 Delivery O2 Flow Rate FiO2 01/14/18 13:30 Room Air 21 01/14/18 13:00 Room Air 01/14/18 12:00 98.1 66 18 106/76 (86) 95 01/14/18 12:00 63 01/14/18 09:50 71 20 97 Room Air 01/14/18 09:48 74 18 97 Room Air 01/14/18 09:47 74 20 21 01/14/18 09:47 Room Air 01/14/18 09:46 97 Room Air 01/14/18 09:00 Nasal Cannula 2.0 01/14/18 09:00 54 01/14/18 08:26 118/71 01/14/18 08:00 98.1 70 18 118/71 (87) 97 01/14/18 08:00 72 01/14/18 07:00 Room Air 01/14/18 07:00 Room Air 01/14/18 04:00 98.2 63 17 96/71 (79) 94 01/14/18 03:53 63 01/14/18 02:05 54 18 99 Room Air 01/14/18 01:55 51 16 96 Room Air 01/14/18 00:00 98.7 73 19 122/78 (93) 97 01/13/18 23:22 69 01/13/18 21:45 61 20 98 Room Air 21 01/13/18 21:38 58 20 98 Room Air 21 01/13/18 20:22 76 20 99 Room Air 21 01/13/18 20:20 65 125/73 01/13/18 20:12 75 18 98 Room Air 21 01/13/18 20:12 98 Room Air 21 01/13/18 20:12 Room Air 21 01/13/18 20:00 98.6 66 18 125/73 (90) 98 01/13/18 19:02 63 01/13/18 16:00 70 01/13/18 16:00 97.3 64 18 100/65 (77) 99 Intake and Output 01/13/18 01/14/18 19:00 07:00 Intake Total 840 ml 360 ml Balance 840 ml 360 ml Intake Oral 840 ml 360 ml # Voids 3 3 # Bowel Movements 1 Objective HEAD AND NECK: No JVD LUNGS: Coarse rhonchi. CARDIOVASCULAR: Irregular S1 and S2 with no gallop or murmur ABDOMEN: Soft. EXTREMITIES: No pitting edema. Antonio Conde MD Jan 14, 2018 15:48
[2018-01-14 16:00] VITALS: BP 108/75
[2018-01-14] MEDS ORDERED: NS 275ml ONE (16:59)
--- NOTE | 2018-01-14 20:00 | Progress Note ---
DATE: 01/14/2018 SUBJECTIVE: The patient is concerned about his medical condition and has anxiety. We discussed about his transfer to [facility] and cardiac procedure. Stencil Sprayer has spoken to the patient. The patient is unable to understand, process, or communicate information given to him. MENTAL STATUS EXAMINATION: The patient is alert and oriented times self, place, and situation he is in. Mood is anxious. Affect is constricted. Congruent with mood. Thought process is concrete. Thought content, no suicidal or homicidal ideations. ASSESSMENT: Anxiety disorder, situational. PLAN: The patient may benefit from Ativan p.r.n. We will provide the patient with reality orientation and supportive therapy. Rozina Angela M.D. DR: GERARDO JOB#: [id number] CC:
--- NOTE | 2018-01-15 11:07 | Discharge Summary ---
Discharge Summary Discharge Summary _ DATE OF ADMISSION: 01/07/2018 DATE OF DISCHARGE: 01/14/2018 REASON FOR ADMISSION: 77 years old male with past medical history of hypertension, remote history of DVT, presented to emergency room for evaluation. Patient reported cough for 2 weeks ,usually dry with occasional white phlegm at times. No chest pain or shortness of breath, no fever, no chills . Patient did not receive flu vaccine this year. Patient reported other family members were sick as well . Upon evaluation patient was tachycardiac Pulse oximetry was stable on room air ,afebrile. Laboratory workup revealed no leukocytosis, hemoglobin 12.7, hematocrit 38.2. Platelets 138. BUN, 19 creatinine 1.5. Lactic acid 1.4. Troponin elevated 3.317 , pro BNP 00174 EKG revealed atrial flutter with rapid ventricular response. Chest x-ray revealed cardiomegaly, possible mild perihilar interstitial congestion and small right pleural effusion Patient admitted with diagnosis of atrial flutter with rapid ventricular response, NSTEMI , renal insufficiency . CONSULTANTS: laboratory inspector Dr. Conde pulmonary Dr. Chowdhury ID specialist GI specialist construction secretary Dr. Garcia victim witness administrator/oncologist Dr. Loya psychiatrist HOSPITAL COURSE: Patient initially admitted to ICU and started on heparin drip and Cardizem drip. Nutrition Consultant closely followed. Serial troponin were trending down. Echocardiogram revealed ejection fraction of 20-25% with global left ventricular hypokinesis. Evidence of severe aortic stenosis and right ventricular systolic pressure of 70 consistent with severe pulmonary hypertension. After rate control was achieved, with Cardizem drip was discontinued and patient started on metoprolol. Patient started on diuretic with close monitoring of volumes and cardiorenal parameters. Anti-failure regimen was initiated, including diuretic, Digoxin, beta jewel and MATTY inhibitor. Metoprolol was changed to Coreg. Blood pressure was controlled with current regimen. Per laboratory inspector patient will need cardiac catheterization and was placed on the waiting list for transfer. Patient will eventually benefit from atrial flutter ablation when stable. Patient started on on empiric antibiotic for possible pneumonia as per ID specialist recommendations. Ict Quality Assurance Engineer followed. Patient with evidence of upper respiratory infection, tracheobronchitis versus possible early pneumonia. per ID specialist recommendation. Supplemental oxygen provided as needed to keep pulse oximetry above 90%. Pulmonary toilet around the clock and as needed provided with Atrovent only. Sputum culture was negative, influenza screen test was negative. Antitussive provided as needed. Patient status post treatment with antibiotics. No fever, no leukocytosis. Venous duplex bilateral lower extremity revealed acute DVT right lower extremity superficial femoral to popliteal vein. Patient was on Eliquis after heparin drip stopped. In preparation for cardiac catheterization , patient started on Lovenox and Eliquis was placed on hold.. Patient with evidence of anemia. Stool for occult blood was negative and hemoglobin not trending down. Per GI specialist , no urgent GI procedure was necessary at this time. Diet was advanced as tolerated. Bowel regimen instituted. Symptomatic treatment provided . Zofran was on board as needed. GI prophylaxis with PPI provided. GI recommended outpatient GI procedure , but patient will need prior cardiac clearance. Hemoglobin and hematocrit were closely monitored with goal to keep hemoglobin above 7. Anemia workup was consistent with anemia of chronic disease , hemoglobin and hematocrit remained stable. Prior tp transfer hemoglobin 12.4 hematocrit 38.3. Patient initially with evidence of thrombocytopenia , was probably related to infectious process. Hepatitis panel was negative. HIV test was nonreactive. Ultrasound of the abdomen revealed no evidence of hepatosplenomegaly or cirrhosis. Platelet count improved , and prior to transfer within normal limits. Renal parameters and electrolytes were closely monitored. Urine studies were done. Nephrotoxins were avoided if possible , and electrolytes were corrected as needed . Creatinine remains in the same range, likely chronic renal insufficiency. Psychiatrist followed for anxiety disorder. According to psychiatrist patient had situational anxiety disorder. Reality orientation and supportive therapy provided. Anxiolytics were on board as needed. Transfer was arranged to [facility] for cardiac catheterization via [facility] ambulance for further management. FINAL DIAGNOSES: NSTEMI Atrial flutter with rapid ventricular response Congestive heart failure Cardiomyopathy with ejection fraction 20-25% Hypertension Severe aortic stenosis Severe pulmonary hypertension Upper respiratory failure infection versus tracheobronchitis Possible pneumonia Renal insufficiency Acute DVT right lower extremity , superficial femoral vein and popliteal veins Anemia of chronic disease Thrombocytopenia Anxiety disorder, situational DISCHARGE MEDICATIONS: See Medication Reconciliation list. DISCHARGE INSTRUCTIONS: Patient was transferred to [facility] for cardiac catheterization via [facility] ambulance. I have been assigned to dictate discharge summary for this account. I was not involved in the patient's management. Dania Kendrick NP Jan 15, 2018 11:07
--- NOTE | 2018-01-15 12:44 | Diagnostic Imaging Report ---
Indication: Dyspnea Comparison: 01/07/2018 A single view chest radiograph was obtained. Findings: Blunting of the costophrenic angle demonstrated bilaterally. Heart is enlarged. Pulmonary vascularity is normal. Basilar atelectasis suspected. IMPRESSION: Mild basal atelectasis. Small pleural effusions may be present. Cardiomegaly
== END 2018-01-14 18:15 | disposition short-term general hospital (02) | DRG 280 ==
LOC: EMR 19:39 → ICU 21:20 → UNDOADMIN 21:20 → 2W 21:20 → EDBEDREQSVC 21:32 → EDBEDREQ 21:32 → EDBEDREQSVC 21:56 → EDBEDREQ 21:56 → 2E 01-10 06:09
DX: I21.4 Non-ST elevation (NSTEMI) myocardial infarction (principal); J18.9 Pneumonia, unspecified organism; I48.92 Unspecified atrial flutter; I82.411 Acute embolism and thrombosis of right femoral vein; I82.431 Acute embolism and thrombosis of right popliteal vein; I42.9 Cardiomyopathy, unspecified; N17.9 Acute kidney failure, unspecified; I11.0 Hypertensive heart disease with heart failure; I50.9 Heart failure, unspecified; I35.0 Nonrheumatic aortic (valve) stenosis; I27.20 Pulmonary hypertension, unspecified; D63.8 Anemia in other chronic diseases classified elsewhere; D69.6 Thrombocytopenia, unspecified; F41.8 Other specified anxiety disorders; I48.91 Unspecified atrial fibrillation; G47.00 Insomnia, unspecified; Z86.718 Personal history of other venous thrombosis and embolism; J06.9 Acute upper respiratory infection, unspecified; J40 Bronchitis, not specified as acute or chronic
CPT/HCPCS: 36415; 36600; 71045; 76700; 80048; 80053; 80061; 80162; 81003; 82248; 82270; 82378; 82550; 82553; 82607; 82728; 82746; 82803; 82977; 83036; 83540; 83550; 83605; 83735; 83880; 84100; 84300; 84439; 84443; 84484; 84550; 85025; 85044; 85379; 85610; 85730; 86140; 86703; 86705; 86709; 86710; 86713; 86738; 86803; 87070; 87081; 87205; 87340; 93005; 93306; 93970; 94640; 94664; 94760; 96375; 99291

== ENCOUNTER 2018-09-09 12:53 | Inpatient (IN) | payer MEDICARE ==
[~2018-09-09] VITALS: Ht 180.3 cm; Wt 63.3 kg
[~2018-09-09 12:53] MED LIST: ACETAMINOPHEN325 M1 ORAL; ACETYLCYST200 MG/1 M ORAL; ALLOPURINOL300 M1 ORAL; CEFTAZIDIM1 GM/50 ML IV; COLACE100 MG ORAL; COREG25 MG ORAL; DIGOXIN250 MCG ORAL; FUROSEMIDE40 MG ORAL; GUAIFENESI100 MG/5 M ORAL; GUAIFENESIN600 MG ORAL; IPRATROPIU0.2 MG/1 M HHN; LISINOPRIL10 MG ORAL; LOVENOX10 M2 SUBQ; MAG-OXIDE400 M1 PO; PROTONIX40 MG ORAL; ZITHROMAX250 MG ORAL
--- NOTE | 2018-09-09 13:22 | Emergency Room Report ---
History of Present Illness General Chief Complaint: Generalized Weakness Source: Patient, Significant Other Present Illness HPI Patient is a 77-year-old male who presented after increased generalized weakness. Patient had gradual onset of symptoms. He was noted to have decreased appetite over the past few days. He had been losing weight. Patient had prior history of atrial fibrillation as well as congestive heart failure. He normally takes Lasix as well as Coreg and Losartan. He had been unable to ambulate without assistance. Allergies: Coded Allergies: No Known Allergies (Unverified , 01/07/18) Patient History Past Medical History: see triage record Reviewed Nursing Documentation: PMH: Agreed; PSxH: Agreed Nursing Documentation-PMH Past Medical History: No History, Except For Hx Cardiac Problems: Yes Hx Hypertension: Yes Hx COPD: Yes Hx Cancer: No Hx Gastrointestinal Problems: No Hx Neurological Problems: No Review of Systems All Other Systems: negative except mentioned in HPI Physical Exam Vital Signs Date Time Temp Pulse Resp B/P (MAP) Pulse Ox O2 Delivery O2 Flow Rate FiO2 09/09/18 13:16 97.3 87 16 86/66 (73) 100 Room Air Sp02 EP Interpretation: reviewed, normal General Appearance: normal inspection, alert, thin, Chronically Ill Head: atraumatic ENT: normal ENT inspection, normal voice Neck: normal inspection, supple, no bony tend, limited range of motion Respiratory: normal inspection, lungs clear, normal breath sounds, no respiratory distress, no retraction, no wheezing Cardiovascular #1: regular rate, rhythm, no edema Gastrointestinal: normal inspection, normal bowel sounds, non tender, soft, no guarding, no hernia Genitourinary: no CVA tenderness Musculoskeletal: normal inspection, back normal, normal range of motion Neurologic: normal inspection, alert, responsive, speech normal Psychiatric: normal inspection, judgement/insight normal, mood/affect normal Medical Decision Making Diagnostic Impression: Primary Impression: Atrial fibrillation Additional Impression: Cardiomyopathy ER Course Patient presented for increased generalized weakness and difficulty breathing. Patient a prior history of cardiomyopathy. Differential diagnosis include was not limited to myocardial infarction, cardiac arrhythmia, electrolyte abnormality, sepsis among others. Because of complexity of patient's case laboratory testing and imaging studies were ordered. Patient noted to be initially hypotensive. He was started on IV fluids. Patient was noted to have EKG interpreted by me with atrial flutter with a variable block rate of 143 with poor R wave progression. Patient was started on IV digoxin due to hypotension. Chest x-ray 1 view read by radiology showed cardiomegaly as well as bilateral pleural effusions and right hilar lesion questional for mass. Patient will be admitted for further evaluation and treatment. Dr. Bruce Loya was contacted for Dr. Watt for inpatient management due to prior admission. Labs Test 09/09/18 13:30 09/09/18 14:15 09/09/18 15:30 White Blood Count 8.7 K/UL (4.8-10.8) Red Blood Count 4.68 M/UL (4.70-6.10) Hemoglobin 15.7 G/DL (14.2-18.0) Hematocrit 51.4 % (42.0-52.0) Mean Corpuscular Volume 110 FL (80-99) Mean Corpuscular Hemoglobin 33.5 PG (27.0-31.0) Mean Corpuscular Hemoglobin Concent 30.5 G/DL (32.0-36.0) Red Cell Distribution Width 16.8 % (11.6-14.8) Platelet Count 106 K/UL (150-450) Mean Platelet Volume 10.9 FL (6.5-10.1) Neutrophils (%) (Auto) 67.0 % (45.0-75.0) Lymphocytes (%) (Auto) 22.7 % (20.0-45.0) Monocytes (%) (Auto) 8.6 % (1.0-10.0) Eosinophils (%) (Auto) 0.6 % (0.0-3.0) Basophils (%) (Auto) 1.1 % (0.0-2.0) Prothrombin Time 14.8 SEC (9.30-11.50) Prothromb Time International Ratio 1.4 (0.9-1.1) Activated Partial Thromboplast Time 32 SEC (23-33) Urine Color Isi Urine Appearance Slightly cloudy Urine pH 5 (4.5-8.0) Urine Specific [place] 1.020 (1.005-1.035) Urine Protein 1+ (NEGATIVE) Urine Glucose (UA) Negative (NEGATIVE) Urine Ketones 2+ (NEGATIVE) Urine Blood 1+ (NEGATIVE) Urine Nitrite Negative (NEGATIVE) Urine Bilirubin 1+ (NEGATIVE) Urine Ictotest Negative (NEGATIVE) Urine Urobilinogen 8 MG/DL (0.0-1.0) Urine Leukocyte Esterase 1+ (NEGATIVE) Urine RBC 2-4 /HPF (0 - 0) Urine WBC 2-4 /HPF (0 - 0) Urine Squamous Epithelial Cells Occasional /LPF Urine Amorphous Sediment Moderate /LPF (NONE) Urine Bacteria Occasional /HPF (NONE) Urine Hyaline Casts 2-4 /LPF (NONE) Urine Granular Casts 2-4 /LPF (NONE) Urine Fine Granular Casts 0-2 /LPF (NONE) Sodium Level 145 MMOL/L (136-145) Potassium Level 3.9 MMOL/L (3.5-5.1) Chloride Level 112 MMOL/L (98-107) Carbon Dioxide Level 21 MMOL/L (21-32) Anion Gap 12 mmol/L (5-15) Blood Urea Nitrogen 38 mg/dL (7-18) Creatinine 1.4 MG/DL (0.55-1.30) Estimat Glomerular Filtration Rate mL/min (>60) Glucose Level 74 MG/DL (74-106) Calcium Level 8.9 MG/DL (8.5-10.1) Phosphorus Level 3.7 MG/DL (2.5-4.9) Magnesium Level 1.9 MG/DL (1.8-2.4) Total Bilirubin 2.7 MG/DL (0.2-1.0) Direct Bilirubin 1.3 MG/DL (0.0-0.3) Aspartate Amino Transf (AST/SGOT) 24 U/L (15-37) Alanine Aminotransferase (ALT/SGPT) < 6 U/L (12-78) Alkaline Phosphatase 53 U/L (46-116) Total Creatine Kinase 35 U/L (26-308) Creatine Kinase MB 0.8 NG/ML (0.0-3.6) Creatine Kinase MB Relative Index 2.2 Troponin I 0.151 ng/mL (0.000-0.056) Total Protein 6.4 G/DL (6.4-8.2) Albumin 2.7 G/DL (3.4-5.0) Globulin 3.7 g/dL Albumin/Globulin Ratio 0.7 (1.0-2.7) Digoxin Level > 5.0 NG/ML (0.5-2.0) Lactic Acid Level 2.20 mmol/L (0.66-2.22) EKG Diagnostic Results Rate: tachycardiac Rhythm: other - atrial fibrillation Last Vital Signs Date Time Temp Pulse Resp B/P (MAP) Pulse Ox O2 Delivery O2 Flow Rate FiO2 09/09/18 13:16 97.3 87 16 86/66 (73) 100 Room Air Status: unchanged Disposition: ADMITTED INPATIENT Condition: Serious Nam Camarillo MD Sep 09, 2018 13:22
[2018-09-09 13:48] VITALS: BP 93/66
--- NOTE | 2018-09-09 13:49 | NUR ---
ED Nurse Note:pt. came from home via wheelchair with c/o generalized weakness, pt. is A/Ox2 non ambulatory at this time, was placed on master baker, blood urine and blood cultures sent to labs
[2018-09-09] MEDS ORDERED: Aspirin Baby 81mg ORAL ONE (14:00)
[2018-09-09] MEDS ORDERED: Digoxin 0.5mg/2ml Inj IVP ONE (14:00)
[2018-09-09 14:09] LABS: APPEARANCE,URINE SLIGHTLY CLOUDY; BASOPHILS % (AUTO) 1.1 % (0.0-2.0); BILIRUBIN, URINE 1+ (NEGATIVE); EOSINOPHILS % (AUTO) 0.6 % (0.0-3.0); GLUCOSE, URINE (UA) NEGATIVE (NEGATIVE); HEMATOCRIT 51.4 % (42.0-52.0); HEMOGLOBIN 15.7 G/DL (14.2-18.0); KETONES,URINE 2+ (NEGATIVE); LEUKOCYTE ESTERASE ,URINE 1+ (NEGATIVE); LYMPHOCYTES % (AUTO) 22.7 % (20.0-45.0); MEAN CORPUSCULAR VOLUME 110 FL (80-99); MONOCYTES % (AUTO) 8.6 % (1.0-10.0); NITRITE,URINE NEGATIVE (NEGATIVE); PH,URINE 5 (4.5-8.0); PLATELET COUNT 106 K/UL (150-450); PROTEIN,URINE 1+ (NEGATIVE); RED BLOOD COUNT 4.68 M/UL (4.70-6.10); RED CELL DISTRIBUTION WIDTH 16.8 % (11.6-14.8); UROBILINOGEN,URINE 8 MG/DL (0.0-1.0); WHITE BLOOD COUNT 8.7 K/UL (4.8-10.8)
[2018-09-09 14:13] LABS: COLOR,URINE AMBER
[2018-09-09 14:19] VITALS: BP 93/75
[2018-09-09 14:21] LABS: INR 1.4 (0.9-1.1)
[2018-09-09 14:55] LABS: ANION GAP 12 mmol/L (5-15); BLOOD UREA NITROGEN 38 mg/dL (7-18); CALCIUM 8.9 MG/DL (8.5-10.1); CARBON DIOXIDE 21 MMOL/L (21-32); CHLORIDE 112 MMOL/L (98-107); CREATININE 1.4 MG/DL (0.55-1.30); POTASSIUM 3.9 MMOL/L (3.5-5.1); SODIUM 145 MMOL/L (136-145)
[2018-09-09 15:19] LABS: ALANINE AMINOTRANSFERASE < 6 U/L (12-78); ALBUMIN 2.7 G/DL (3.4-5.0); ALBUMIN/GLOBULIN RATIO 0.7 (1.0-2.7); ALKALINE PHOSPHATASE 53 U/L (46-116); ASPARTATE AMINO TRANSFERASE 24 U/L (15-37); BILIRUBIN,TOTAL 2.7 MG/DL (0.2-1.0); CKMB 0.8 NG/ML (0.0-3.6); CREATINE KINASE 35 U/L (26-308); PHOSPHORUS 3.7 MG/DL (2.5-4.9)
[2018-09-09 15:25] LABS: BILIRUBIN,DIRECT 1.3 MG/DL (0.0-0.3)
--- NOTE | 2018-09-09 15:46 | NUR ---
ED Nurse Note:lactic reflax sent to labs
--- NOTE | 2018-09-09 15:46 | NUR ---
ED Nurse Note:called to [facility] [place]- given report to Luis nurse
[2018-09-09 15:53] VITALS: BP 96/76
--- NOTE | 2018-09-09 16:04 | Diagnostic Imaging Report ---
Indication: Cough Technique: One view of the chest Comparison: 01/14/2018 Findings: There are bilateral moderate to large pleural effusions, right greater than left. The heart is enlarged. There is generalized mild interstitial congestion. There is a focal right hilar opacity as well. This is not evident previously. The aorta is elongated and ectatic. Impression: Cardiomegaly Evidence of congestive heart failure, with bilateral perihilar edema and right greater than left moderate to large pleural effusions Right hilar opacity. Probably an area of infiltrate or focal pulmonary edema, but follow-up to resolution is recommended to ensure there is no underlying mass lesion Findings previously discussed by phone with Dr. Carlisle
--- NOTE | 2018-09-09 16:09 | NUR ---
ED Nurse Note:called report to SDU- given report to jaqui Alex taken up [place]
[2018-09-09 16:41] VITALS: BP 95/52
--- NOTE | 2018-09-09 17:00 | NUR ---
NURSE NOTES: received pt from ER with dx AFIB, WEAKNESS, vital signs stable, no co pain, no SOB, respiration regular, skin warm and dry to touch, open wound on sacral area, picture taken, incontinent, at bedside, pt awake, confused, bed in low position, call light within reach.
[2018-09-09] MEDS ORDERED: ELIQUIS5 MG PO (18:23)
[2018-09-09] MEDS ORDERED: SPIRONOLACTONE100 MG ORAL (18:23)
[2018-09-09] MEDS ORDERED: ZANTAC150 MG ORAL (18:23)
[2018-09-09] MEDS ORDERED: LOSARTAN POTASS25 MG ORAL (18:23)
--- NOTE | 2018-09-09 19:32 | NUR ---
HAND-OFF: Report given to EOM RN.
--- NOTE | 2018-09-09 19:35 | NUR ---
NURSE NOTES: Received pt and report from ANGIE Alex. Pt was admitted for SDU for AFIB, WEAKNESS. Pt's resting in bed, AOx3, confused at times, accompanied by his . Current A. flutter on knurling machine tender.Vital signs stable, no co pain, no SOB, respiration regular, skin warm and dry to touch, open wound on sacral area stage II, picture taken, incontinent using condom cath. Bed in low position, call light within reach, head of bed kept elevated. Will continue to monitor.
[2018-09-09 20:00] VITALS: BP 100/66
[2018-09-09] MEDS ORDERED: SPIRONOLACTONE25 MG ORAL (20:29)
[2018-09-09] MEDS: Vitamin A&D Oint 2oz Tube TOPIC SCH (20:56)
[2018-09-09] MEDS: Heparin 5000 units/ml inj SUBQ SCH (20:56)
--- NOTE | 2018-09-09 22:00 | NUR ---
NURSE NOTES: Pt's resting in bed, asleep with eyes closed. VS stable. Will continue to monitor.
[2018-09-10] VITALS: BP 100/58
[2018-09-10 04:00] VITALS: BP 102/69
--- NOTE | 2018-09-10 04:00 | NUR ---
NURSE NOTES: Pt's resting in bed, asleep, in no acute distress. VS stable. Will continue to monitor.
[2018-09-10 05:56] LABS: BASOPHILS % (AUTO) 0.9 % (0.0-2.0); EOSINOPHILS % (AUTO) 1.2 % (0.0-3.0); HEMATOCRIT 45.3 % (42.0-52.0); LYMPHOCYTES % (AUTO) 15.1 % (20.0-45.0); MEAN CORPUSCULAR VOLUME 110 FL (80-99); MONOCYTES % (AUTO) 9.6 % (1.0-10.0); NEUTROPHILS % (AUTO) 73.2 % (45.0-75.0); PLATELET COUNT 111 K/UL (150-450); RED BLOOD COUNT 4.11 M/UL (4.70-6.10); RED CELL DISTRIBUTION WIDTH 16.6 % (11.6-14.8); WHITE BLOOD COUNT 6.4 K/UL (4.8-10.8)
[2018-09-10 06:14] LABS: ANION GAP 8 mmol/L (5-15); BLOOD UREA NITROGEN 34 mg/dL (7-18); CALCIUM 8.8 MG/DL (8.5-10.1); CARBON DIOXIDE 25 MMOL/L (21-32); CHLORIDE 113 MMOL/L (98-107); CREATININE 1.2 MG/DL (0.55-1.30); POTASSIUM 3.7 MMOL/L (3.5-5.1); SODIUM 146 MMOL/L (136-145)
--- NOTE | 2018-09-10 06:37 | Consultation ---
History of Present Illness General Chief Complaint: Generalized Weakness Present Illness Allergies: Coded Allergies: No Known Allergies (Unverified , 01/07/18) Medication History Scheduled Apixaban (Eliquis), 5 MG PO DAILY, (Reported) Carvedilol (Coreg), 3.125 MG ORAL EVERY 12 HOURS, (Reported) Furosemide* (Lasix*), 40 MG ORAL DAILY, (Reported) Losartan Potassium* (Losartan Potassium*), 25 MG ORAL DAILY, (Reported) Ranitidine Hcl* (Zantac*), 150 MG ORAL DAILY, (Reported) Spironolactone* (Aldactone*), 25 MG ORAL DAILY, (Reported) Discontinued Medications Acetaminophen* (Acetaminophen 325MG Tablet*), 650 MG ORAL Q4H PRN for Mild Pain/ Temp > 100.5, (Reported) Discontinued Reason: Therapy completed Acetylcysteine* (Acetylcysteine*), 600 MG ORAL TWICE A DAY, (Reported) Discontinued Reason: Therapy completed Allopurinol* (Allopurinol*), 300 MG ORAL DAILY, (Reported) Discontinued Reason: Therapy completed Azithromycin* (Zithromax*), 250 MG ORAL DAILY, (Reported) Discontinued Reason: Therapy completed Ceftazidime Pentahydrate/D5w (Ceftazidime 1 Gm Piggyback), 1 GM IV DAILY, ( Reported) Discontinued Reason: Therapy completed Digoxin* (Digoxin*), 0.25 MG ORAL DAILY, (Reported) Discontinued Reason: Therapy completed Docusate Sodium* (Colace*), 100 MG ORAL THREE TIMES A DAY, (Reported) Discontinued Reason: Therapy completed Enoxaparin* (Lovenox*), 80 MG SUBQ EVERY 12 HOURS, (Reported) Discontinued Reason: Therapy completed Guaifenesin (Guaifenesin ER), 600 MG ORAL BID, (Reported) Discontinued Reason: Therapy completed Guaifenesin* (Guaifenesin), 5 ML ORAL Q4H PRN for For Cough, (Reported) Discontinued Reason: Therapy completed Ipratropium [place] 0.5MG/2.5ML (Ipratropium [place] 0.5MG/2.5ML), 0.5 MG HHN Q4HR PRN for Shortness of Breath, (Reported) Discontinued Reason: Therapy completed Ipratropium [place] 0.5MG/2.5ML (Ipratropium [place] 0.5MG/2.5ML), 0.5 MG HHN Q6H, (Reported) Discontinued Reason: Therapy completed Lisinopril* (Lisinopril*), 10 MG ORAL DAILY, (Reported) Discontinued Reason: Therapy completed Losartan Potassium* (Losartan Potassium*), 25 MG ORAL DAILY, (Reported) Discontinued Reason: Therapy completed Magnesium Oxide (Mag-Oxide), 400 MG PO THREE TIMES A DAY, (Reported) Discontinued Reason: Therapy completed Pantoprazole* (Protonix*), 40 MG ORAL DAILY, (Reported) Discontinued Reason: Therapy completed Spironolactone* (Spironolactone*), 25 MG ORAL DAILY, (Reported) Discontinued Reason: Prescription changed Patient History Healthcare decision maker Resuscitation status Advanced Directive on File No Physical Exam Last 24 Hour Vital Signs Date Time Temp Pulse Resp B/P (MAP) Pulse Ox O2 Delivery O2 Flow Rate FiO2 09/10/18 04:00 Room Air 09/10/18 04:00 98.2 58 20 102/69 (80) 94 09/10/18 03:23 61 09/10/18 00:00 56 09/10/18 00:00 97.3 68 20 100/58 (72) 100 09/10/18 00:00 Room Air 09/09/18 20:54 60 100/66 09/09/18 20:00 Room Air 09/09/18 20:00 98.4 60 20 100/66 (77) 98 09/09/18 20:00 55 09/09/18 17:19 Room Air 09/09/18 17:05 70 09/09/18 16:41 97.5 84 20 95/52 (66) 96 09/09/18 16:07 97.3 82 19 96/76 100 Room Air 09/09/18 15:53 97.3 82 19 96/76 100 Room Air 09/09/18 15:48 82 18 Room Air 09/09/18 14:19 97.3 108 19 93/75 100 Room Air 09/09/18 14:01 107 09/09/18 13:48 97.3 113 16 93/66 100 Room Air 09/09/18 13:16 97.3 87 16 86/66 (73) 100 Room Air Intake and Output 09/09/18 09/10/18 19:00 07:00 Intake Total 120 ml Output Total 400 ml Balance -280 ml Intake Oral 120 ml Output Urine Total 400 ml # Voids 2 1 # Bowel Movements 1 Laboratory Tests Test 09/09/18 13:30 09/09/18 14:15 09/09/18 15:30 09/10/18 04:56 White Blood Count 8.7 K/UL (4.8-10.8) 6.4 K/UL (4.8-10.8) Red Blood Count 4.68 M/UL (4.70-6.10) L 4.11 M/UL (4.70-6.10) L Hemoglobin 15.7 G/DL (14.2-18.0) 14.0 G/DL (14.2-18.0) L Hematocrit 51.4 % (42.0-52.0) 45.3 % (42.0-52.0) Mean Corpuscular Volume 110 FL (80-99) H 110 FL (80-99) H Mean Corpuscular Hemoglobin 33.5 PG (27.0-31.0) H 34.1 PG (27.0-31.0) H Mean Corpuscular Hemoglobin Concent 30.5 G/DL (32.0-36.0) L 31.0 G/DL (32.0-36.0) L Red Cell Distribution Width 16.8 % (11.6-14.8) H 16.6 % (11.6-14.8) H Platelet Count 106 K/UL (150-450) L 111 K/UL (150-450) L Mean Platelet Volume 10.9 FL (6.5-10.1) H 9.1 FL (6.5-10.1) Neutrophils (%) (Auto) 67.0 % (45.0-75.0) 73.2 % (45.0-75.0) Lymphocytes (%) (Auto) 22.7 % (20.0-45.0) 15.1 % (20.0-45.0) L Monocytes (%) (Auto) 8.6 % (1.0-10.0) 9.6 % (1.0-10.0) Eosinophils (%) (Auto) 0.6 % (0.0-3.0) 1.2 % (0.0-3.0) Basophils (%) (Auto) 1.1 % (0.0-2.0) 0.9 % (0.0-2.0) Prothrombin Time 14.8 SEC (9.30-11.50) H Prothromb Time International Ratio 1.4 (0.9-1.1) H Activated Partial Thromboplast Time 32 SEC (23-33) Urine Color Isi Urine Appearance Slightly cloudy Urine pH 5 (4.5-8.0) Urine Specific [place] 1.020 (1.005-1.035) Urine Protein 1+ (NEGATIVE) H Urine Glucose (UA) Negative (NEGATIVE) Urine Ketones 2+ (NEGATIVE) H Urine Blood 1+ (NEGATIVE) H Urine Nitrite Negative (NEGATIVE) Urine Bilirubin 1+ (NEGATIVE) H Urine Ictotest Negative (NEGATIVE) Urine Urobilinogen 8 MG/DL (0.0-1.0) H Urine Leukocyte Esterase 1+ (NEGATIVE) H Urine RBC 2-4 /HPF (0 - 0) H Urine WBC 2-4 /HPF (0 - 0) Urine Squamous Epithelial Cells Occasional /LPF Urine Amorphous Sediment Moderate /LPF (NONE) H Urine Bacteria Occasional /HPF (NONE) Urine Hyaline Casts 2-4 /LPF (NONE) H Urine Granular Casts 2-4 /LPF (NONE) H Urine Fine Granular Casts 0-2 /LPF (NONE) H Sodium Level 145 MMOL/L (136-145) 146 MMOL/L (136-145) H Potassium Level 3.9 MMOL/L (3.5-5.1) 3.7 MMOL/L (3.5-5.1) Chloride Level 112 MMOL/L (98-107) H 113 MMOL/L (98-107) H Carbon Dioxide Level 21 MMOL/L (21-32) 25 MMOL/L (21-32) Anion Gap 12 mmol/L (5-15) 8 mmol/L (5-15) Blood Urea Nitrogen 38 mg/dL (7-18) H 34 mg/dL (7-18) H Creatinine 1.4 MG/DL (0.55-1.30) H 1.2 MG/DL (0.55-1.30) Estimat Glomerular Filtration Rate mL/min (>60) mL/min (>60) Glucose Level 74 MG/DL (74-106) 62 MG/DL (74-106) L Lactic Acid Level 2.30 mmol/L (0.4-2.0) H 2.20 mmol/L (0.66-2.22) Calcium Level 8.9 MG/DL (8.5-10.1) 8.8 MG/DL (8.5-10.1) Phosphorus Level 3.7 MG/DL (2.5-4.9) Magnesium Level 1.9 MG/DL (1.8-2.4) Total Bilirubin 2.7 MG/DL (0.2-1.0) H Direct Bilirubin 1.3 MG/DL (0.0-0.3) H Aspartate Amino Transf (AST/SGOT) 24 U/L (15-37) Alanine Aminotransferase (ALT/SGPT) < 6 U/L (12-78) L Alkaline Phosphatase 53 U/L (46-116) Total Creatine Kinase 35 U/L (26-308) Creatine Kinase MB 0.8 NG/ML (0.0-3.6) Creatine Kinase MB Relative Index 2.2 Troponin I 0.151 ng/mL (0.000-0.056) Total Protein 6.4 G/DL (6.4-8.2) Albumin 2.7 G/DL (3.4-5.0) L Globulin 3.7 g/dL Albumin/Globulin Ratio 0.7 (1.0-2.7) L Digoxin Level > 5.0 NG/ML (0.5-2.0) *H Hemoglobin A1c Pending Height (Feet): 5 Height (Inches): 11.00 Weight (Pounds): 120 Medications Current Medications Medications (Trade) Dose Ordered Sig/Fritz Route PRN Reason Start Time Stop Time Status Last Admin Dose Admin Apixaban (Eliquis) 2.5 mg BID ORAL 09/10/18 09:00 10/10/18 08:59 Carvedilol (Coreg) 3.125 mg EVERY 12 HOURS ORAL 09/09/18 21:00 10/09/18 20:59 09/09/18 20:54 Famotidine (Pepcid) 20 mg DAILY ORAL 09/10/18 09:00 10/10/18 08:59 Furosemide (Lasix) 40 mg DAILY ORAL 09/10/18 09:00 10/10/18 08:59 Heparin Sodium (Porcine) (Heparin 5000 units/ml) 5,000 units EVERY 12 HOURS SUBQ 09/09/18 21:00 10/09/18 20:59 09/09/18 20:56 Losartan Potassium (Cozaar) 25 mg DAILY ORAL 09/10/18 09:00 10/10/18 08:59 Spironolactone (Aldactone) 25 mg DAILY ORAL 09/10/18 09:00 10/10/18 08:59 Vitamin A/Vitamin D (A & D Oint) 1 applic EVERY 12 HOURS TOPIC 09/09/18 21:00 10/09/18 20:59 09/09/18 20:56 Assessment/Plan Assessment/Plan: Hematology Consult REQ MD: Melvi SEGUNDO 09/10/18 RFC: Anemia, thrombocytopenia ID Patient is a 77-year-old male well known to me from prior admission, who presented after increased generalized weakness. Patient had gradual onset of symptoms. He was noted to have decreased appetite over the past few days. He had been losing weight. Patient had prior history of atrial fibrillation as well as congestive heart failure. He normally takes Lasix as well as Coreg and Losartan. He had been unable to ambulate without assistance. In prior noted to have decreased plt count, heme was consulted. Allergies: No Known Allergies (Unverified , 01/07/18) Patient History Past Medical History: see triage record Reviewed Nursing Documentation: PMH: Agreed; PSxH: Agreed Nursing Documentation-PMH Past Medical History: No History, Except For Hx Cardiac Problems: Yes Hx Hypertension: Yes Hx COPD: Yes Hx Cancer: No Hx Gastrointestinal Problems: No Hx Neurological Problems: No Review of Systems Negative except mentioned in HPI Physical Exam Vital Signs Date Time Temp Pulse Resp B/P (MAP) Pulse Ox O2 Delivery O2 Flow Rate FiO2 09/09/18 13:16 97.3 87 16 86/66 (73) 100 Room Air General Appearance: normal inspection, alert, thin, Chronically Ill Head: atraumatic ENT: normal ENT inspection, normal voice Neck: normal inspection, supple, no bony tend, limited range of motion Respiratory: normal inspection, lungs clear, normal breath sounds Cardiovascular: regular rate, rhythm, no edema Gastrointestinal: normal inspection, normal bowel sounds, non tender Genitourinary: no CVA tenderness Musculoskeletal: normal inspection, back normal Neurologic: normal inspection, alert, responsive, speech normal Psychiatric: normal inspection, judgement/insight normal Labs: reviewed Imaging: as above Assessment and Recs: # Thrombocytopenia - most likely related to PNA infection. --> Hep panel and HIV are both negative --> US abd has been reordered given coagulopathy --> Peripheral smear ordered to evaluate for blasts /schistocytes --> abx and other meds have been reviewed --> ok for ppx if plt >50k w/ with lovenox --> plt 111-->106k # Acute right leg DVT hx --> eliquis ok to continue --> cards aware from prior admission # Anemia of chronic disease due to underlying chronic medical issues, multifactorial. --> Anemia w/u has been reviewed. Ferritin at 450. --> WIll trend CBC as needed. --> hgb goal >7. Transfuse prn. --> No evidence of hemolysis noted. # Courtney --> as per renal # PNA/right hilar mass. CXR has been reviewed. --> May need abx --> pulm eval prn # Myocardial infarction. --> Cardiac cath per before # Atrial flutter with rapid ventricular response. --> per cards # [facility] Greatly appreciate consultation! Bruce Loya MD Sep 10, 2018 06:37
--- NOTE | 2018-09-10 07:15 | NUR ---
HAND-OFF: Report given to ANGIE Alex.
[2018-09-10 08:00] VITALS: BP 89/54
--- NOTE | 2018-09-10 08:22 | NUR ---
NURSE NOTES: received pt in the bed, awake, confused, BP 89/54, no co pain, no SOB, skin warm and dry to touch, dressing on sacral area dry and intact, NPO for abdominal US, in the room, bed in low position, call light within reach.
--- NOTE | 2018-09-10 08:24 | NUR ---
RADIOLOGY DEPT., CHEST X-RAY DONE.-P.DYE
[2018-09-10] MEDS ORDERED: Lisinopril 20mg tab ORAL SCH (09:00)
[2018-09-10] MEDS: Heparin 5000 units/ml inj SUBQ SCH ×2 (09:00→20:10)
[2018-09-10] MEDS: Losartan 25mg tab ORAL SCH (09:00)
--- NOTE | 2018-09-10 09:03 | NUR ---
NURSE NOTES: dr. Loya notified about low BP.
[2018-09-10] MEDS: Eliquis 2.5mg tablet ORAL SCH ×2 (09:27→17:52)
[2018-09-10] MEDS: Spironolactone 25mg tab ORAL SCH (09:28)
[2018-09-10] MEDS: Furosemide 40mg tab ORAL SCH (09:32)
[2018-09-10] MEDS: Vitamin A&D Oint 2oz Tube TOPIC SCH ×2 (09:58→20:10)
--- NOTE | 2018-09-10 10:10 | Diagnostic Imaging Report ---
Indication: Abdominal pain Technique: Grayscale and duplex Doppler imaging of the abdomen performed. Comparison: None Findings: The liver is unremarkable. Doppler interrogation of the main portal vein shows patency with hepatopedal, monophasic flow. There is no biliary ductal dilatation identified. Gallbladder is notable for multiple stones and sludge. Patient was not able to respond and sonographic Scott's sign is therefore equivocal. The CBD is 3 mm. Pancreas and aorta are noted. The aorta is moderately calcified. There is a suggestion of fusiform aneurysms involving both common iliac arteries, on the left measuring about 2.5 cm on this examination. There are bilateral pleural effusions present. Bilateral renal cysts are noted. There is no hydronephrosis. IMPRESSION: Bilateral pleural effusions. Gallstones. 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 This may be further evaluated on CT. Bilateral renal cysts
--- NOTE | 2018-09-10 10:34 | NUR ---
NURSE NOTES: [id number] Perdue patient gram positive cocci x 1 bottle,consulted Dr. Alexis Rivera [address] Alexis Rivera of consult,notified
--- NOTE | 2018-09-10 10:53 | NUR ---
NURSE NOTES:WOUND CARE NOTES:Pt presented on admission with multiple pressure injuries. Open DTPI noted to Sacrum .Base of wound indurated ,purple with two open areas .Wound in its entirety measures (L)9cm x (W)8.5cm. Proximal wound within base of DTPI measures (L)2cm x (W03cm .Base of wound regina with 10% slough.Inferior but in close proximity second wound within DTPI measures (L)0.8cm x (W)0.6cm.Base of wound regina. Resolving pressure injury noted to L ischium .Base of wound pale with dry borders. DTPI noted to L trochanter .Base of wound indurated, purple with scattered striations that are maroon in colourwiti=hin base of wound.(L)12cm x (W)7cm.Site tender when minimally palpated. L heel maroon in colour with fluctuance. Tender when minimally palpated (L)6.5cm x (W)6cm. R heel maroon in colour with fluctuance. Tender when minimally palpated.(L)5.5cm x (W)7cm. Darker skin tone noted to lateral/posterior R tibia. Non-blanching erythema with fluctuance noted to tips of R and L 1st metatarsals. Spouse at bedside and all skin findings addressed with spouse .Spouse has been educated of risks for further skin decline, including possibility of DTPIs becoming open wounds.Spouse has been informed of interventions being implemented to minimize risks for further skin breakdown. Tx.Plan: Cleanse Sacral wound with Saline. Apply Therahoney to open wounds.Apply Triad Paste periwound .Cover with Optifoam drsg. Change Daily and prn. Apply Cavilon Skin Barrier to Both heels. Cover each heel with Optifoam drsg. Change every 7 days and prn. Apply Cavilon Skin Barrier to both heels. Cover each heel with Optifoam drsg. Change every 7 days and prn. APM/TRACIE mattress overlay. Reposition at least every 2hours or as tolerated. Off-load heels with pillow.
--- NOTE | 2018-09-10 11:01 | NUR ---
NURSE NOTES: bolus NS 250cc given as ordered, wound nurse saw pt, dressing changed, bed bath given, repositioned.
--- NOTE | 2018-09-10 11:03 | Diagnostic Imaging Report ---
Indication: Dyspnea Comparison: 09/09/2018 A single view chest radiograph was obtained. Findings: There is evidence of bilateral pleural effusions with obscuring of the diaphragm. There is pulmonary vascular congestion present bilaterally. The heart is enlarged. Aorta is ectatic. IMPRESSION: CHF with interval worsening.
[2018-09-10 12:00] VITALS: BP 98/57
--- NOTE | 2018-09-10 12:54 | NUR ---
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 97.4 HR 87 RR 16 B/P 86/66 LACTID ACID 2.30 DIG LEVEL >5.0 BUN 38 CR 1.4 TROP 0.151 CXR= EVIDENCE OF CHF IS: IV BOLUS NS X 500ML DIGOXIN IV ADMITTED TO STEP DOWN @1623 STEP DOWN STATUS DCP PENDING HOSPITAL STAY
--- NOTE | 2018-09-10 13:10 | Cardiac Electrophysiology PN ---
Subjective Subjective Dictated [id number] Objective Last 24 Hour Vital Signs Date Time Temp Pulse Resp B/P (MAP) Pulse Ox O2 Delivery O2 Flow Rate FiO2 09/10/18 12:00 70 09/10/18 12:00 97.8 86 17 98/57 (71) 96 09/10/18 12:00 Room Air 09/10/18 09:00 89/54 09/10/18 09:00 77 89/54 09/10/18 08:00 98.1 82 17 89/54 (66) 93 09/10/18 08:00 Room Air 09/10/18 08:00 77 09/10/18 04:00 Room Air 09/10/18 04:00 98.2 58 20 102/69 (80) 94 09/10/18 03:23 61 09/10/18 00:00 56 09/10/18 00:00 97.3 68 20 100/58 (72) 100 09/10/18 00:00 Room Air 09/09/18 20:54 60 100/66 09/09/18 20:00 Room Air 09/09/18 20:00 98.4 60 20 100/66 (77) 98 09/09/18 20:00 55 09/09/18 17:19 Room Air 09/09/18 17:05 70 09/09/18 16:41 97.5 84 20 95/52 (66) 96 09/09/18 16:07 97.3 82 19 96/76 100 Room Air 09/09/18 15:53 97.3 82 19 96/76 100 Room Air 09/09/18 15:48 82 18 Room Air 09/09/18 14:19 97.3 108 19 93/75 100 Room Air 09/09/18 14:01 107 09/09/18 13:48 97.3 113 16 93/66 100 Room Air 09/09/18 13:16 97.3 87 16 86/66 (73) 100 Room Air Intake and Output 09/09/18 09/10/18 19:00 07:00 Intake Total 180 ml Output Total 600 ml Balance -420 ml Intake Oral 180 ml Output Urine Total 600 ml # Voids 2 2 # Bowel Movements 1 Laboratory Tests Test 09/09/18 13:30 09/09/18 14:15 09/09/18 15:30 7/24/19 04:56 White Blood Count 8.7 K/UL (4.8-10.8) 6.4 K/UL (4.8-10.8) Red Blood Count 4.68 M/UL (4.70-6.10) L 4.11 M/UL (4.70-6.10) L Hemoglobin 15.7 G/DL (14.2-18.0) 14.0 G/DL (14.2-18.0) L Hematocrit 51.4 % (42.0-52.0) 45.3 % (42.0-52.0) Mean Corpuscular Volume 110 FL (80-99) H 110 FL (80-99) H Mean Corpuscular Hemoglobin 33.5 PG (27.0-31.0) H 34.1 PG (27.0-31.0) H Mean Corpuscular Hemoglobin Concent 30.5 G/DL (32.0-36.0) L 31.0 G/DL (32.0-36.0) L Red Cell Distribution Width 16.8 % (11.6-14.8) H 16.6 % (11.6-14.8) H Platelet Count 106 K/UL (150-450) L 111 K/UL (150-450) L Mean Platelet Volume 10.9 FL (6.5-10.1) H 9.1 FL (6.5-10.1) Neutrophils (%) (Auto) 67.0 % (45.0-75.0) 73.2 % (45.0-75.0) Lymphocytes (%) (Auto) 22.7 % (20.0-45.0) 15.1 % (20.0-45.0) L Monocytes (%) (Auto) 8.6 % (1.0-10.0) 9.6 % (1.0-10.0) Eosinophils (%) (Auto) 0.6 % (0.0-3.0) 1.2 % (0.0-3.0) Basophils (%) (Auto) 1.1 % (0.0-2.0) 0.9 % (0.0-2.0) Prothrombin Time 14.8 SEC (9.30-11.50) H Prothromb Time International Ratio 1.4 (0.9-1.1) H Activated Partial Thromboplast Time 32 SEC (23-33) Urine Color Isi Urine Appearance Slightly cloudy Urine pH 5 (4.5-8.0) Urine Specific [place] 1.020 (1.005-1.035) Urine Protein 1+ (NEGATIVE) H Urine Glucose (UA) Negative (NEGATIVE) Urine Ketones 2+ (NEGATIVE) H Urine Blood 1+ (NEGATIVE) H Urine Nitrite Negative (NEGATIVE) Urine Bilirubin 1+ (NEGATIVE) H Urine Ictotest Negative (NEGATIVE) Urine Urobilinogen 8 MG/DL (0.0-1.0) H Urine Leukocyte Esterase 1+ (NEGATIVE) H Urine RBC 2-4 /HPF (0 - 0) H Urine WBC 2-4 /HPF (0 - 0) Urine Squamous Epithelial Cells Occasional /LPF Urine Amorphous Sediment Moderate /LPF (NONE) H Urine Bacteria Occasional /HPF (NONE) Urine Hyaline Casts 2-4 /LPF (NONE) H Urine Granular Casts 2-4 /LPF (NONE) H Urine Fine Granular Casts 0-2 /LPF (NONE) H Sodium Level 145 MMOL/L (136-145) 146 MMOL/L (136-145) H Potassium Level 3.9 MMOL/L (3.5-5.1) 3.7 MMOL/L (3.5-5.1) Chloride Level 112 MMOL/L (98-107) H 113 MMOL/L (98-107) H Carbon Dioxide Level 21 MMOL/L (21-32) 25 MMOL/L (21-32) Anion Gap 12 mmol/L (5-15) 8 mmol/L (5-15) Blood Urea Nitrogen 38 mg/dL (7-18) H 34 mg/dL (7-18) H Creatinine 1.4 MG/DL (0.55-1.30) H 1.2 MG/DL (0.55-1.30) Estimat Glomerular Filtration Rate mL/min (>60) mL/min (>60) Glucose Level 74 MG/DL (74-106) 62 MG/DL (74-106) L Lactic Acid Level 2.30 mmol/L (0.4-2.0) H 2.20 mmol/L (0.66-2.22) Calcium Level 8.9 MG/DL (8.5-10.1) 8.8 MG/DL (8.5-10.1) Phosphorus Level 3.7 MG/DL (2.5-4.9) Magnesium Level 1.9 MG/DL (1.8-2.4) Total Bilirubin 2.7 MG/DL (0.2-1.0) H Direct Bilirubin 1.3 MG/DL (0.0-0.3) H Aspartate Amino Transf (AST/SGOT) 24 U/L (15-37) Alanine Aminotransferase (ALT/SGPT) < 6 U/L (12-78) L Alkaline Phosphatase 53 U/L (46-116) Total Creatine Kinase 35 U/L (26-308) Creatine Kinase MB 0.8 NG/ML (0.0-3.6) Creatine Kinase MB Relative Index 2.2 Troponin I 0.151 ng/mL (0.000-0.056) Total Protein 6.4 G/DL (6.4-8.2) Albumin 2.7 G/DL (3.4-5.0) L Globulin 3.7 g/dL Albumin/Globulin Ratio 0.7 (1.0-2.7) L Digoxin Level > 5.0 NG/ML (0.5-2.0) *H Hemoglobin A1c 4.7 % (4.3-6.0) Microbiology Date/Time Source Procedure Growth Status 09/09/18 14:15 Blood Blood Culture - Preliminary Resulted Antonio Conde MD Sep 10, 2018 13:10
--- NOTE | 2018-09-10 14:28 | NUR ---
RD ASSESSMENT & RECOMMENDATIONS SEE CARE ACTIVITY FOR COMPLETE ASSESSMENT DAILY ESTIMATED NEEDS: Needs based on Wounds 54.5kg 30-35 kcals/kg 2720-0905 total kcals 1.25-2 g protein/kg 68-109 g total protein Fluid per MD, on lasix NUTRITION DIAGNOSIS: Increased kcal and pro needs r/t wound healing as evidenced by pt w/ multiple wounds, including L trochanter and sacral DTPI, L ischium resolving pressure injury, refer to WC eval for complete evaluation. CURRENT DIET: Regular ms ground PO DIET RECOMMENDATIONS: Regular/ liberalized diet (texture per DESK ASSISTANT) ADDITIONAL RECOMMENDATIONS: 1) DESK ASSISTANT eval for appropriate texture 2) Wound care: add ANDRE BID Add VIT C 250mg daily Add MVI w/ min daily 3) Add Ensure in b/w meals 4) Obtain an accurate updated weight- pt adm w/ poor po + wt loss
--- NOTE | 2018-09-10 14:57 | NUR ---
Social Work This SW received verbal notification to assist with a home safety evaluation. This SW met with patient who appears lethargic, mostly non-verbal. Spouse, Katie Wilkins ([phone]) is currently staying with patient at bedside, who explains she has been assisting patient at home, while patient has been showing a decline in ability to ambulate (mostly bedridden), not eating and has a decubitus ulcer on buttock. This SW advised spouse regarding patient going to SNF vs 24-hired caregiver upon discharge. Spouse stating she and her family: daughter, son-law, nephew lives next door and will assist. Spouse believes she can assist patient upon discharge, requesting a hospital bed, air mattress. This Sw recommended SNF, as needed. Information regarding Hospice was also explained to spouse. Spouse informed this SW that she would like short term SNF placement, until other arrangements can be made for patient to return home. Spouse plans to discuss discharge planning with her daughter; will let SW which SNF she would like patient to discharge to. This SW also informed spouse regarding will need to locate SNF with an available bed (as well as primary M.D to follow at SNF). SW to follow, as needed. LIDYA Martin notified.
--- NOTE | 2018-09-10 15:33 | Cardiology Report ---
APPROVED REPORT EKG Measurement Heart [id number] CT P67 [id number] Atrial flutter with variable AV block Left axis deviation Low voltage QRS Inferior infarct, age undetermined Possible Anterolateral infarct, age undetermined Abnormal ECG
--- NOTE | 2018-09-10 15:36 | Cardiology Report ---
APPROVED REPORT EKG Measurement Heart [id number] NC P109 [id number] Atrial flutter with variable AV block Left axis deviation Pulmonary disease pattern Inferior infarct, age undetermined Marked ST abnormality, possible lateral subendocardial injury Abnormal ECG
--- NOTE | 2018-09-10 15:49 | Cardiology Report ---
APPROVED REPORT EXAM: Two-dimensional and M-mode echocardiogram with Doppler and color Doppler. INDICATION Congestive Heart Failure M-Mode DIMENSIONS IVSd1.2 (0.7-1.1cm)Left Atrium (MM)3.6 (1.6-4.0cm) LVDd5.6 (3.5-5.6cm)Aortic Root3.6 (2.0-3.7cm) PWd1.2 (0.7-1.1cm)Aortic Cusp Exc.1.0 (1.5-2.0cm) LVDs4.8 (2.5-4.0cm) PWs1.5 cm Mobile echogenic material noted in left ventricular apex. Dr. Conde was notified on 09/10/2018. Normal left ventricular chamber size. Global left ventricular hypokinesis. Left ventricular ejection fraction estimated to be 15 %. Mild left ventricular hypertrophy. Large pleural effusion. Mild bi-atrial enlargement. Mild right atrial enlargement. Aortic valve calcification with decreased cusp excursion c/w aortic stenosis. Mildly thickened mitral valve leaflets with normal excursion. Heavy mitral annulus and aortic root calcification. Pulmonic valve not well visualized. Normal tricuspid valve structure. IVC is normal in size without physiological collapse, suggestive of increased RA pressure. A color flow and spectral Doppler study was performed and revealed: Mild to moderate aortic regurgitation. Peak aortic valve gradient of 111 mmHg and a mean of 72 mmHg. Aortic valve area 0.3 cm2 calculated by continuity equation, c/w CRITICAL A.S. Mild to moderate mitral regurgitation. Mitral inflow indicates increased left atrial pressure, suggestive restrictive pattern (Grade III). Moderate tricuspid regurgitation. Tricuspid systolic velocities suggests peak right ventricular systolic pressure of 49 mmHg, consistent with moderate pulmonary hypertension. Mild pulmonic regurgitation present.
[2018-09-10 16:00] VITALS: BP 103/56
--- NOTE | 2018-09-10 17:07 | NUR ---
NURSE NOTES: 2d echo done, dr. Conde notified about result by zone maintenance technician.
--- NOTE | 2018-09-10 18:30 | Consultation ---
DATE OF CONSULTATION: 09/10/2018 CARDIOLOGY CONSULTATION CONSULTING PHYSICIAN: Antonio Conde M.D. REFERRING PHYSICIAN: Chad Diaz D.O. REASON FOR CONSULTATION: Management of congestive heart failure as well as atrial flutter with rapid ventricular response. HISTORY OF PRESENT ILLNESS: The patient is a very pleasant 77-year-old gentleman under my Cardiology care, who was just recently in the office. The patient has history of severe cardiomyopathy with ejection fraction of only 20% as well as history of atrial flutter on the previous admission. The patient is already on optimized heart failure therapy at home. The patient was admitted to the hospital for generalized weakness. In the ER, he was noted to have blood pressure 86/66. His EKG showed atrial flutter, rapid ventricular response, heart rate of 144 beats per minute. At the time of my evaluation, he is very weak, but responsive. Denies any chest pain or shortness of breath. He also has a history of right leg DVT and he is on Eliquis. REVIEW OF SYSTEMS: Negative other than what was mentioned in the history of present illness. PAST MEDICAL HISTORY: 1. Hypertension. 2. History of non-ST elevation myocardial infarction with troponin of 3. 3. Severe cardiomyopathy with EF of 20%. 4. History of atrial flutter with rapid ventricular response in December 2017. 5. Mild renal failure. 6. Right leg DVT. FAMILY HISTORY: Noncontributory. SOCIAL HISTORY: He lives at home. Does not smoke or drink alcohol. PHYSICAL EXAMINATION: VITAL SIGNS: Show blood pressure 98/57, pulse 86, respirations 18, and temperature 97.8. HEAD AND NECK: Showed no JVD. LUNGS: Coarse rhonchi. CARDIOVASCULAR: Shows irregular. S1 and S2 with no gallop or murmur. ABDOMEN: Soft. EXTREMITIES: No pitting edema. LABORATORY AND DIAGNOSTIC DATA: His labs show white count of 6.4, hemoglobin of 14, hematocrit of 45, and platelet count of 111. Sodium 143, potassium 3.7, BUN 34, creatinine 1.2, and glucose 62. Troponin 0.151 and 0.045 on his previous admission. ASSESSMENT AND PLAN: 1. Atrial flutter with rapid ventricular response, heart rate in 140s. The patient is on Coreg 3.125 mg b.i.d., that will be continued. The patient is also on Eliquis 2.5 mg b.i.d. The patient had atrial flutter in December 2017 and would benefit from atrial flutter ablation dysrhythmia that will be done after the patient is stabilized as the patient needs to be transferred to . 2. Severe cardiomyopathy with ejection fraction of 20%. The patient had cardiac catheterization by me in December 2017. We will get that cardiac catheterization report. Continue Cozaar 25 mg daily, Lasix 40 mg daily, Aldactone 25 mg daily, and Coreg 3.125 mg b.i.d. 3. History of DVT, on Eliquis. 4. History of hypertension. Continue current heart failure therapy medications. Thank you very much, Dr. Diaz, for allowing me to participate in the care of this patient. Please do not hesitate to contact me for any questions regarding my evaluation. Antonio Conde M.D. DR: YANIV JOB#: [id number] CC:
--- NOTE | 2018-09-10 19:26 | NUR ---
HAND-OFF: Report given to DARRICK ADAMS,pt refuse dinner, in the room.
[2018-09-10 20:00] VITALS: BP 93/53
[2018-09-10] MEDS ORDERED: Vancomycin 1gm/D5W 275ml IVPB ONE ×2 (20:00)
--- NOTE | 2018-09-10 20:13 | NUR ---
NURSE NOTES: 2100 med coreg held, pt BP is 91/53. pt Hep held, PLT count 111, and pt is on [facility] med.
--- NOTE | 2018-09-10 22:45 | Consultation ---
DATE OF CONSULTATION: 09/10/2018 CONSULTING PHYSICIAN: Rozina Angela M.D. HISTORY OF PRESENT ILLNESS: The patient is a 77-year-old male with a history of cardiomyopathy, AFib, anemia who has been admitted to the hospital due to increased weakness and low appetite. The patient is lethargic, has waxing and waning consciousness. Unable to engaged during the evaluation. The patient in addition has not been eating, losing weight. Has memory impairment, cognitive impairment. PAST PSYCHIATRIC HISTORY: He has a history of cognitive impairment. PAST MEDICAL HISTORY: As above. ALLERGIES: No known drug allergies. SUBSTANCE ABUSE HISTORY: No known history of illicit drug use or alcohol. MENTAL STATUS EXAMINATION: The patient is having waxing and waning consciousness. Mood is neutral. Eyes are closed. Affect is flat. Thought process, there is a paucity of thought content. Thought content, no suicidal or homicidal ideations. Memory is impaired. ASSESSMENT: [place] I Acute encephalopathy. [place] II Deferred. [place] III Failure to thrive. [place] IV Low. [place] V 10. PLAN: 1. The patient may benefit from low dose of Zyprexa. 2. We will reassess the patient and order medications if appropriate. Rozina Angela M.D. DR: CELINA JOB#: [id number] CC:
--- NOTE | 2018-09-10 22:45 | Consultation ---
DATE OF CONSULTATION: 09/10/2018 INFECTIOUS DISEASE CONSULTATION CONSULTING PHYSICIAN: Alexis Rivera M.D. PRIMARY ATTENDING PHYSICIAN: Inocencia Watt M.D. REASON FOR CONSULT: Positive blood culture. HISTORY OF PRESENT ILLNESS: A 77-year-old male, admitted last evening from home complaining of generalized weakness, decreased appetite, and losing weight. The patient had a positive blood culture that is growing gram-positive cocci in cluster. The patient had the pressure ulcer. PAST MEDICAL HISTORY: Significant for atrial flutter, CHF with ejection fraction 15%, COPD, hypertension, anemia, thrombocytopenia, had history of DVT, critical aortic stenosis, and mitral regurgitation. MEDICATIONS: Getting Lasix, losartan, Aldactone, famotidine, apixaban, carvedilol, and heparin. ALLERGIES: No known drug allergies. SOCIAL HISTORY: . Lives at home with the . REVIEW OF SYSTEMS: Has weakness. Has no fever, but has nonproductive cough. No chest pain. The patient in the past couple of days cannot go out of the bed, needs help for walking. PHYSICAL EXAMINATION: VITAL SIGNS: Temperature 97.9, pulse 84, and blood pressure 103/56. GENERAL APPEARANCE: Seems weak and cachectic. HEAD AND NECK: [employer] conjunctiva. Poor dental hygiene. HEART: Normal rate. Irregular. LUNGS: Clear. ABDOMEN: Soft and nontender. EXTREMITY: Has no edema. SKIN: Pressure ulcer in the sacral area, stage II. LABORATORY DATA: WBC 6.4, hemoglobin 14, hematocrit 45.3, and platelets is 111,000. Sodium 146, potassium 3.7, chloride 113, bicarb 25, BUN 34, and creatinine 1.2. Bilirubin is 2.7. 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 Echocardiogram showed ejection fraction of 15%. Chest x-ray showed CHF with interval worsening bilateral pleural effusions, pulmonary vascular congestion. IMPRESSION: 1. Positive blood culture. 2. Cholelithiasis 3. Atrial flutter. 4. Thrombocytopenia. 5. Congestive heart failure. 6. Aortic stenosis. 7. Mitral regurgitation. 8. Acute renal failure. RECOMMENDATIONS: Vancomycin to be dosed by pharmacy. We will follow up the cultures. At the end of my exam, I thank, Dr. Chad Diaz who covered for Dr. Watt, for involving me in the care of this patient. Alexis Rivera M.D. DR: ANASTACIA JOB#: [id number] CC:
[2018-09-11] VITALS: BP 102/69
--- NOTE | 2018-09-11 00:42 | NUR ---
HAND-OFF: Report given to Kristen lollypop machine operator RN.
--- NOTE | 2018-09-11 01:00 | NUR ---
NURSE NOTES RECEIVED PATIENT FROM ANGIE STROUD.ASLEEP,NO S/S OF DISCOMFORT,BREATHING UNLABORED.VS STABLE. AT BEDSIDE.
[2018-09-11 04:00] VITALS: BP 109/64
--- NOTE | 2018-09-11 07:20 | NUR ---
NURSE NOTES: Received report from ANGIE Peterson. Patient is resting in bed, in stable condition. No s/sx of SOB, breathing is even and unlabored. Bed is in lowest position, brakes engaged. Call light is kept within easy reach. Will continue to monitor patient.
[2018-09-11 07:54] VITALS: BP 99/71
[2018-09-11] MEDS: Losartan 25mg tab ORAL SCH (08:22)
[2018-09-11] MEDS: Furosemide 40mg tab ORAL SCH (08:24)
[2018-09-11] MEDS: Eliquis 2.5mg tablet ORAL SCH (08:24)
[2018-09-11] MEDS: Vitamin A&D Oint 2oz Tube TOPIC SCH ×2 (08:24→20:26)
[2018-09-11] MEDS: Spironolactone 25mg tab ORAL SCH (08:24)
--- NOTE | 2018-09-11 08:30 | NUR ---
NURSE NOTES: Contacted and informed Dr. Conde that patient's blood pressure can go as low as 90/54, patient is taking Coreg 3.125 mg PO BID and Cozaar 25 mg PO QD, currently blood pressure medications does not have parameters. Dr. Conde acknowledged and ordered to Hold blood pressure medications for SBP < 100. Orders entered, noted, and carried out. Charge nurse made aware. Will continue to monitor patient.
--- NOTE | 2018-09-11 10:05 | General Progress Note ---
Assessment/Plan Assessment/Plan: Assessment and Recs: # Thrombocytopenia - most likely related to PNA infection. Hep panel and HIV are both negative --> US abd shows bialteral pleural effusions --> Peripheral smear ordered to evaluate for blasts /schistocytes does not show any --> abx and other meds have been reviewed --> ok for ppx if plt >50k w/ with lovenox --> trend plt 111-->106k # Acute right leg DVT hx --> eliquis ok to continue --> cards aware from prior admission # Anemia of chronic disease due to underlying chronic medical issues, multifactorial. --> Anemia w/u has been reviewed. Ferritin at 450. --> WIll trend CBC as needed. --> hgb goal >7. Transfuse prn. --> No evidence of hemolysis noted. # Courtney --> as per renal 1.4-->1.2 # PNA/right hilar mass. CXR has been reviewed. --> May need abx --> pulm eval prn # Myocardial infarction. --> Cardiac cath report reviewed by Dr. Conde # Atrial flutter with rapid ventricular response. --> per cards # Psych disorder -- per psych Greatly appreciate consultation! Subjective Constitutional: Denies: no symptoms, chills, diaphoresis, fever, malaise, weakness, other HEENT: Denies: no symptoms, eye pain, blurred vision, tearing, double vision, ear pain, ear discharge, nose pain, nose congestion, throat pain, throat swelling, mouth pain, mouth swelling, other Cardiovascular: Denies: no symptoms, chest pain, edema, irregular heart rate, lightheadedness, palpitations, syncope, other Respiratory: Denies: no symptoms, cough, orthopnea, shortness of breath, SOB with excertion, SOB at rest, sputum, stridor, wheezing, other Gastrointestinal/Abdominal: Denies: no symptoms, abdomen distended, abdominal pain, black stools, tarry stools, blood in stool, constipated, diarrhea, difficulty swallowing, nausea, poor appetite, poor fluid intake, rectal bleeding , vomiting, other Genitourinary: Denies: no symptoms, burning, discharge, frequency, flank pain, hematuria, incontinence, pain, urgency, other Neurologic/Psychiatric: Denies: no symptoms, anxiety, depressed, emotional problems, headache, numbness, paresthesia, pre-existing deficit, seizure, tingling, tremors, weakness, other Allergies: Coded Allergies: No Known Allergies (Unverified , 01/07/18) Subjective 09/11: no fevers noted, no chills, bp is low, remains on eliquis and seen by cards Objective Last 24 Hour Vital Signs Date Time Temp Pulse Resp B/P (MAP) Pulse Ox O2 Delivery O2 Flow Rate FiO2 09/11/18 08:22 99/71 09/11/18 08:22 69 99/71 09/11/18 08:00 Room Air 09/11/18 08:00 76 09/11/18 07:54 97.7 69 24 99/71 (80) 95 09/11/18 04:00 97.8 72 24 109/64 (79) 94 09/11/18 04:00 68 09/11/18 04:00 Room Air 09/11/18 00:00 98.7 88 24 102/69 (80) 97 09/11/18 00:00 Room Air 09/10/18 23:29 71 09/10/18 20:10 71 93/51 09/10/18 20:00 98.4 86 18 93/53 (66) 99 09/10/18 20:00 Room Air 09/10/18 19:46 78 09/10/18 16:00 Room Air 09/10/18 16:00 97.9 84 18 103/56 (72) 96 09/10/18 16:00 84 09/10/18 12:00 70 09/10/18 12:00 97.8 86 17 98/57 (71) 96 09/10/18 12:00 Room Air Intake and Output 09/10/18 09/11/18 19:00 07:00 Intake Total 280 ml 335 ml Output Total 350 ml 800 ml Balance -70 ml -465 ml Intake Oral 280 ml 60 ml IV Total 275 ml Output Urine Total 350 ml 800 ml # Voids 2 # Bowel Movements 3 Height (Feet): 5 Height (Inches): 11.00 Weight (Pounds): 120 Objective General Appearance: normal inspection, alert, thin, Chronically Ill Head: atraumatic ENT: normal ENT inspection, normal voice Neck: normal inspection, supple, no bony tend, limited range of motion Respiratory: normal inspection, lungs clear, normal breath sounds Cardiovascular: regular rate, rhythm, no edema Gastrointestinal: normal inspection, normal bowel sounds, non tender Genitourinary: no CVA tenderness Musculoskeletal: normal inspection, back normal Neurologic: normal inspection, alert, responsive, speech normal Psychiatric: normal inspection, judgement/insight normal Bruce Loya MD Sep 11, 2018 10:04
--- NOTE | 2018-09-11 10:51 | NUR ---
RD ASSESSMENT & RECOMMENDATIONS SEE CARE ACTIVITY FOR COMPLETE ASSESSMENT DAILY ESTIMATED NEEDS: Needs based on Wounds 54.5kg 30-35 kcals/kg 2797-4875 total kcals 1.25-2 g protein/kg 68-109 g total protein Fluid per MD, on lasix NUTRITION DIAGNOSIS: Increased kcal and pro needs r/t wound healing as evidenced by pt w/ multiple wounds, including L trochanter and sacral DTPI, L ischium resolving pressure injury, refer to WC eval for complete evaluation. CURRENT DIET: Regular ms ground PO DIET RECOMMENDATIONS: Regular/ liberalized diet (texture per KIDNEY TRIMMER) --- ADDITIONAL RECOMMENDATIONS: 1) KIDNEY TRIMMER eval for appropriate texture 2) Wound care: add ANDRE BID Add VIT C 250mg daily Add MVI w/ min daily 3) Add Ensure in b/w meals 4) Obtain an accurate updated weight- pt adm w/ poor po + wt loss
--- NOTE | 2018-09-11 10:51 | Cardiac Electrophysiology PN ---
Assessment/Plan Assessment/Plan 1. Atrial flutter with rapid ventricular response, heart rate in 140s. The patient is on Coreg 3.125 mg b.i.d. and Eliquis 2.5 mg b.i.d. The patient had atrial flutter in December 2017 and would benefit from atrial flutter ablation dysrhythmia that will be done after the patient is stabilized. 2. Severe cardiomyopathy with ejection fraction of 15%. The patient had cardiac catheterization by me in December 2017. We will get that cardiac catheterization report. Continue Cozaar 25 mg daily, Lasix 40 mg daily, Aldactone 25 mg daily, and Coreg 3.125 mg b.i.d. 3. 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 Change to Lovenox and Coumadin 4. History of DVT, on Eliquis. 5. History of hypertension. 6. Severe MAIK 0.3 DW RN and Subjective Subjective Laying flat in bed despite EF 15%. Remained in flutter on Eliquis Objective Last 24 Hour Vital Signs Date Time Temp Pulse Resp B/P (MAP) Pulse Ox O2 Delivery O2 Flow Rate FiO2 09/11/18 08:22 99/71 09/11/18 08:22 69 99/71 09/11/18 08:00 Room Air 09/11/18 08:00 76 09/11/18 07:54 97.7 69 24 99/71 (80) 95 09/11/18 04:00 97.8 72 24 109/64 (79) 94 09/11/18 04:00 68 09/11/18 04:00 Room Air 09/11/18 00:00 98.7 88 24 102/69 (80) 97 09/11/18 00:00 Room Air 09/10/18 23:29 71 09/10/18 20:10 71 93/51 09/10/18 20:00 98.4 86 18 93/53 (66) 99 09/10/18 20:00 Room Air 09/10/18 19:46 78 09/10/18 16:00 Room Air 09/10/18 16:00 97.9 84 18 103/56 (72) 96 09/10/18 16:00 84 09/10/18 12:00 70 09/10/18 12:00 97.8 86 17 98/57 (71) 96 09/10/18 12:00 Room Air Intake and Output 09/10/18 09/11/18 19:00 07:00 Intake Total 280 ml 335 ml Output Total 350 ml 800 ml Balance -70 ml -465 ml Intake Oral 280 ml 60 ml IV Total 275 ml Output Urine Total 350 ml 800 ml # Voids 2 # Bowel Movements 3 Microbiology Date/Time Source Procedure Growth Status 09/09/18 14:15 Blood Blood Culture - Preliminary Gram Positive Cocci Resulted 09/09/18 13:30 Blood Blood Culture - Preliminary NO GROWTH AFTER 24 HOURS Resulted Objective HEAD AND NECK: Mild JVD. LUNGS: Coarse rhonchi. CARDIOVASCULAR: Shows irregular. S1 and S2 with no gallop or murmur. ABDOMEN: Soft. EXTREMITIES: No pitting edema. Antonio Conde MD Sep 11, 2018 10:51
[2018-09-11 12:00] VITALS: BP 93/62
--- NOTE | 2018-09-11 12:29 | Consultation ---
History of Present Illness General Date patient seen: Sep 11, 2018 Chief Complaint: Generalized Weakness Present Illness HPI This is a very pleasant 77-year-old male halfway resident who presented to [facility] for evaluation of anemia, weakness, fatigue. On admission patient was identified to have multiple wounds requiring care and management. Surgery called to evaluate and assist with care. Patient seen, patient examined, chart reviewed. Patient's family is at bedside and provides the majority of the patient's history and current findings. Patient himself is alert but not verbal. Allergies: Coded Allergies: No Known Allergies (Unverified , 01/07/18) Medication History Scheduled Apixaban (Eliquis), 5 MG PO DAILY, (Reported) Carvedilol (Coreg), 3.125 MG ORAL EVERY 12 HOURS, (Reported) Furosemide* (Lasix*), 40 MG ORAL DAILY, (Reported) Losartan Potassium* (Losartan Potassium*), 25 MG ORAL DAILY, (Reported) Ranitidine Hcl* (Zantac*), 150 MG ORAL DAILY, (Reported) Spironolactone* (Aldactone*), 25 MG ORAL DAILY, (Reported) Discontinued Medications Acetaminophen* (Acetaminophen 325MG Tablet*), 650 MG ORAL Q4H PRN for Mild Pain/ Temp > 100.5, (Reported) Discontinued Reason: Therapy completed Acetylcysteine* (Acetylcysteine*), 600 MG ORAL TWICE A DAY, (Reported) Discontinued Reason: Therapy completed Allopurinol* (Allopurinol*), 300 MG ORAL DAILY, (Reported) Discontinued Reason: Therapy completed Azithromycin* (Zithromax*), 250 MG ORAL DAILY, (Reported) Discontinued Reason: Therapy completed Ceftazidime Pentahydrate/D5w (Ceftazidime 1 Gm Piggyback), 1 GM IV DAILY, ( Reported) Discontinued Reason: Therapy completed Digoxin* (Digoxin*), 0.25 MG ORAL DAILY, (Reported) Discontinued Reason: Therapy completed Docusate Sodium* (Colace*), 100 MG ORAL THREE TIMES A DAY, (Reported) Discontinued Reason: Therapy completed Enoxaparin* (Lovenox*), 80 MG SUBQ EVERY 12 HOURS, (Reported) Discontinued Reason: Therapy completed Guaifenesin (Guaifenesin ER), 600 MG ORAL BID, (Reported) Discontinued Reason: Therapy completed Guaifenesin* (Guaifenesin), 5 ML ORAL Q4H PRN for For Cough, (Reported) Discontinued Reason: Therapy completed Ipratropium Minoa 0.5MG/2.5ML (Ipratropium Minoa 0.5MG/2.5ML), 0.5 MG HHN Q4HR PRN for Shortness of Breath, (Reported) Discontinued Reason: Therapy completed Ipratropium Minoa 0.5MG/2.5ML (Ipratropium Minoa 0.5MG/2.5ML), 0.5 MG HHN Q6H, (Reported) Discontinued Reason: Therapy completed Lisinopril* (Lisinopril*), 10 MG ORAL DAILY, (Reported) Discontinued Reason: Therapy completed Losartan Potassium* (Losartan Potassium*), 25 MG ORAL DAILY, (Reported) Discontinued Reason: Therapy completed Magnesium Oxide (Mag-Oxide), 400 MG PO THREE TIMES A DAY, (Reported) Discontinued Reason: Therapy completed Pantoprazole* (Protonix*), 40 MG ORAL DAILY, (Reported) Discontinued Reason: Therapy completed Spironolactone* (Spironolactone*), 25 MG ORAL DAILY, (Reported) Discontinued Reason: Prescription changed Patient History Limited by: medical condition History Provided By: Family Member, Medical Record, PMD Healthcare decision maker Resuscitation status Advanced Directive on File No Past Medical/Surgical History Past Medical/Surgical History: (1) Decubitus skin ulcer (2) Anemia (3) Cardiomyopathy (4) Atrial fibrillation (5) aflutter (6) Afib Review of Systems ROS Narrative Unable to obtain family present at bedside to give majority of information Physical Exam General Appearance: no apparent distress Lines, tubes and drains: peripheral HEENT: mucous membranes moist Neck: normal inspection Respiratory/Chest: no accessory muscle use, decreased breath sounds Cardiovascular/Chest: normal rate Abdomen: soft, no organomegaly, no mass Extremities: normal inspection Skin Exam: warm/dry Last 24 Hour Vital Signs Date Time Temp Pulse Resp B/P (MAP) Pulse Ox O2 Delivery O2 Flow Rate FiO2 09/11/18 12:00 Room Air 09/11/18 12:00 97.9 73 20 93/62 (72) 96 09/11/18 08:22 99/71 09/11/18 08:22 69 99/71 09/11/18 08:00 Room Air 09/11/18 08:00 76 7/25/19 07:54 97.7 69 24 99/71 (80) 95 09/11/18 04:00 97.8 72 24 109/64 (79) 94 09/11/18 04:00 68 09/11/18 04:00 Room Air 09/11/18 00:00 98.7 88 24 102/69 (80) 97 09/11/18 00:00 Room Air 09/10/18 23:29 71 09/10/18 20:10 71 93/51 09/10/18 20:00 98.4 86 18 93/53 (66) 99 09/10/18 20:00 Room Air 09/10/18 19:46 78 09/10/18 16:00 Room Air 09/10/18 16:00 97.9 84 18 103/56 (72) 96 09/10/18 16:00 84 Intake and Output 09/10/18 09/11/18 19:00 07:00 Intake Total 280 ml 335 ml Output Total 350 ml 800 ml Balance -70 ml -465 ml Intake Oral 280 ml 60 ml IV Total 275 ml Output Urine Total 350 ml 800 ml # Voids 2 # Bowel Movements 3 Laboratory Tests Test 09/11/18 11:30 Prothrombin Time Pending Prothromb Time International Ratio Pending Height (Feet): 5 Height (Inches): 11.00 Weight (Pounds): 120 Medications Current Medications Medications (Trade) Dose Ordered Sig/Fritz Route PRN Reason Start Time Stop Time Status Last Admin Dose Admin Carvedilol (Coreg) 3.125 mg EVERY 12 HOURS ORAL 09/11/18 21:00 10/09/18 20:59 Enoxaparin Sodium (Lovenox) 50 mg Q12HR SUBQ 09/11/18 21:00 10/11/18 20:59 Famotidine (Pepcid) 20 mg DAILY ORAL 09/10/18 09:00 10/10/18 08:59 09/11/18 08:23 Furosemide (Lasix) 40 mg DAILY ORAL 09/10/18 09:00 10/10/18 08:59 09/11/18 08:24 Losartan Potassium (Cozaar) 25 mg DAILY ORAL 09/12/18 09:00 10/10/18 08:59 Spironolactone (Aldactone) 25 mg DAILY ORAL 09/10/18 09:00 10/10/18 08:59 09/11/18 08:24 Vancomycin HCl (Vanco rx to dose) 1 ea DAILY PRN MISC Per rx protocol 09/10/18 18:30 10/10/18 18:29 Vancomycin HCl 750 mg/Sodium Chloride 275 ml @ 183.333 mls/hr Q24H IVPB 09/11/18 20:00 09/16/18 19:59 Vitamin A/Vitamin D (A & D Oint) 1 applic EVERY 12 HOURS TOPIC 09/09/18 21:00 10/09/18 20:59 09/11/18 08:24 Warfarin Sodium (Coumadin per pharmacy) 1 ea DAILY PRN MISC Per rx protocol 09/11/18 11:15 10/11/18 11:14 UNV Assessment/Plan Problem List: (1) Decubitus skin ulcer Assessment & Plan: Pt presented on admission with multiple pressure injuries. Open DTPI noted to Sacrum .Base of wound indurated ,purple with two open areas .Wound in its entirety measures (L)9cm x (W)8.5cm. Proximal wound within base of DTPI measures (L)2cm x (W03cm .Base of wound regina with 10% slough.Inferior but in close proximity second wound within DTPI measures (L)0.8cm x (W) 0.6cm.Base of wound regina. Resolving pressure injury noted to L ischium .Base of wound pale with dry borders. DTPI noted to L trochanter .Base of wound indurated, purple with scattered striations that are maroon in colourwiti=hin base of wound.(L)12cm x (W) 7cm.Site tender when minimally palpated. L heel maroon in colour with fluctuance. Tender when minimally palpated (L) 6.5cm x (W)6cm. R heel maroon in colour with fluctuance. Tender when minimally palpated.(L) 5.5cm x (W)7cm. Darker skin tone noted to lateral/posterior R tibia. Non-blanching erythema with fluctuance noted to tips of R and L 1st metatarsals. Spouse at bedside and all skin findings addressed with spouse .Spouse has been educated of risks for further skin decline, including possibility of DTPIs becoming open wounds.Spouse has been informed of interventions being implemented to minimize risks for further skin breakdown. Albumin low. nutritional optimization Tx.Plan: Cleanse Sacral wound with Saline. Apply Therahoney to open wounds.Apply Triad Paste periwound .Cover with Optifoam drsg. Change Daily and prn. Apply Cavilon Skin Barrier to Both heels. Cover each heel with Optifoam drsg. Change every 7 days and prn. Apply Cavilon Skin Barrier to both heels. Cover each heel with Optifoam drsg. Change every 7 days and prn. APM/TRACIE mattress overlay. Reposition at least every 2hours or as tolerated. Off-load heels with pillow. ICD Codes: L89.90 - Pressure ulcer of unspecified site, unspecified stage SNOMED: [id number] Roberto Grimm Sep 11, 2018 12:29
--- NOTE | 2018-09-11 12:57 | NUR ---
NURSE NOTES: Per Dr. Conde's instructions, request for cardiac catheter[facility], ; tel . Copy placed in chart. Will continue to monitor patient.
[2018-09-11 12:59] LABS: INR 1.3 (0.9-1.1)
--- NOTE | 2018-09-11 13:05 | NUR ---
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 97.9 HR 73 RR 20 B/P 93/62 PT 13.8 INR 1.3 2D ECHO= EF 15%, LARGE PLEURAL EFFUSION IS: VANCO IV COUMADIN LASIX PO STEP DOWN STATUS
--- NOTE | 2018-09-11 14:00 | NUR ---
NURSE NOTES: Received fax of patient's medical records regarding cardiac catheter from [facility] ([place]). Fax copy placed in chart. Charge nurse made aware. Will Continue to monitor patient.
[2018-09-11 16:00] VITALS: BP 93/62
[2018-09-11] MEDS ORDERED: Warfarin Sodium 4mg PO ONE (17:00)
--- NOTE | 2018-09-11 17:05 | Infectious Diseases Prog Note ---
Assessment/Plan Assessment/Plan IMPRESSION: 1. Positive blood culture. 2. Cholelithiasis 3. Atrial flutter. 4. Thrombocytopenia. 5. Congestive heart failure. 6. Aortic stenosis. 7. Mitral regurgitation. 8. Acute renal failure. 9. Nonischemic cardiomyopathy RECOMMENDATIONS: Continue Vancomycin to be dosed by pharmacy. We will follow up the cultures. Poor prognosis Subjective ROS Limited/Unobtainable: Yes Constitutional: Reports: no symptoms Allergies: Coded Allergies: No Known Allergies (Unverified , 01/07/18) Objective Vital Signs Last 24 Hour Vital Signs Date Time Temp Pulse Resp B/P (MAP) Pulse Ox O2 Delivery O2 Flow Rate FiO2 09/11/18 16:00 73 09/11/18 16:00 Room Air 09/11/18 12:00 62 09/11/18 12:00 Room Air 09/11/18 12:00 97.9 73 20 93/62 (72) 96 09/11/18 08:22 99/71 09/11/18 08:22 69 99/71 09/11/18 08:00 Room Air 09/11/18 08:00 76 09/11/18 07:54 97.7 69 24 99/71 (80) 95 09/11/18 04:00 97.8 72 24 109/64 (79) 94 09/11/18 04:00 68 09/11/18 04:00 Room Air 09/11/18 00:00 98.7 88 24 102/69 (80) 97 09/11/18 00:00 Room Air 09/10/18 23:29 71 09/10/18 20:10 71 93/51 09/10/18 20:00 98.4 86 18 93/53 (66) 99 09/10/18 20:00 Room Air 09/10/18 19:46 78 Height (Feet): 5 Height (Inches): 11.00 Weight (Pounds): 120 General Appearance: cachetic HEENT: mucous membranes moist Respiratory/Chest: lungs clear Cardiovascular: normal rate Abdomen: soft, non tender Extremities: no edema Neurologic/Psychiatric: alert, responsive Musculoskeletal: atrophy Microbiology Date/Time Source Procedure Growth Status 09/09/18 14:15 Blood Blood Culture - Preliminary Gram Positive Cocci Resulted 09/09/18 13:30 Blood Blood Culture - Preliminary Resulted Laboratory Tests Test 09/11/18 11:30 Prothrombin Time 13.8 SEC (9.30-11.50) H Prothromb Time International Ratio 1.3 (0.9-1.1) H Current Medications Medications (Trade) Dose Ordered Sig/Fritz Route PRN Reason Start Time Stop Time Status Last Admin Dose Admin Carvedilol (Coreg) 3.125 mg EVERY 12 HOURS ORAL 09/11/18 21:00 10/09/18 20:59 Enoxaparin Sodium (Lovenox) 50 mg Q12HR SUBQ 09/11/18 21:00 10/11/18 20:59 Famotidine (Pepcid) 20 mg DAILY ORAL 09/10/18 09:00 10/10/18 08:59 09/11/18 08:23 Furosemide (Lasix) 40 mg DAILY ORAL 09/10/18 09:00 10/10/18 08:59 09/11/18 08:24 Losartan Potassium (Cozaar) 25 mg DAILY ORAL 09/12/18 09:00 10/10/18 08:59 Spironolactone (Aldactone) 25 mg DAILY ORAL 09/10/18 09:00 10/10/18 08:59 09/11/18 08:24 Vancomycin HCl (Vanco rx to dose) 1 ea DAILY PRN MISC Per rx protocol 09/10/18 18:30 10/10/18 18:29 Vancomycin HCl 750 mg/Sodium Chloride 275 ml @ 183.333 mls/hr Q24H IVPB 09/11/18 20:00 09/16/18 19:59 Vitamin A/Vitamin D (A & D Oint) 1 applic EVERY 12 HOURS TOPIC 09/09/18 21:00 10/09/18 20:59 09/11/18 08:24 Warfarin Sodium (Coumadin per pharmacy) 1 ea DAILY PRN MISC Per rx protocol 09/11/18 14:30 10/11/18 14:29 Alexis Rivera MD Sep 11, 2018 17:05
[2018-09-11] MEDS ORDERED: NS 275ml ONE (17:59)
--- NOTE | 2018-09-11 18:44 | NUR ---
NURSE NOTES: Patient is noted with left arm swelling 4+, patient denies pain on left arm. Contacted and left message with Dr. Loya regarding situation, awaiting reply. Will continue to monitor patient.
--- NOTE | 2018-09-11 19:25 | NUR ---
NURSE NOTES: received report from Valerio RN, pt. in bed awake- A/O x's4- able to make needs known, is at bedside, pt. appears to be comfortable and no distress noted, epic analyst on, bed in lowest position and call light within easy reach, bed alarm on, side rails up x's 3 and safety brakes engaged, pt. appears to be clean and dry, Condom cath intact and draining to gravity, pt. appears to be clean and dry, RT. AC 20G and LFA 20G both IVs intact and SL, safety measures continued, will continue with plan of care.
--- NOTE | 2018-09-11 19:25 | NUR ---
NURSE NOTES: Per Dr. Loya, ordered Venous duplex of left arm. Order entered, noted, and carried out. Will continue to monitor patient.
--- NOTE | 2018-09-11 19:30 | NUR ---
HAND-OFF: Report given to ANGIE Pucktet.
[2018-09-11 20:00] VITALS: BP 90/62
[2018-09-11] MEDS ORDERED: Vancomycin 750mg/NS 275ml IVPB SCH ×2 (20:00)
[2018-09-11] MEDS: OLANZapine 2.5mg tab ORAL SCH (20:20)
[2018-09-11] MEDS: Enoxaparin Sodium 300mg/3ml vial SUBQ SCH ×2 (21:37→22:25)
--- NOTE | 2018-09-11 21:47 | NUR ---
NURSE NOTES: left message for , to see if okay to administer Lovenox- awaiting for call back from doctor.
--- NOTE | 2018-09-11 22:18 | NUR ---
NURSE NOTES: left message for DR. Nolasco, regarding Lovenox if okay to administer - low platelets- awaiting for call back from doctor.
--- NOTE | 2018-09-11 22:31 | NUR ---
NURSE NOTES: Lovenox given- per DR. Esparza notes okay for ppx if plt >50k w/ with Lovenox- will continue to monitor patient.
--- NOTE | 2018-09-11 23:00 | Progress Note ---
DATE: 09/11/2018 SUBJECTIVE: The patient is more alert today. was at bedside. The patient has waxing and waning consciousness. Poor memory. . The patient did not sleep last night towards the end of the night waking up, although is slightly agitated. MENTAL STATUS EXAMINATION: The patient knows his name and he knows he is in the hospital. Mood is anxious and agitated. Affect is flat. Thought process, there is a paucity of thought content. Thought content, no suicidal or homicidal ideations. ASSESSMENT: 1. Acute encephalopathy. 2. Dementia. PLAN: 1. We will start the patient on Zyprexa 2.5 mg at bedtime. 2. Provide the patient with reality orientation and supportive therapy. Rozina Angela M.D. DR: ABRAM JOB#: [id number] CC:
[2018-09-12] VITALS: BP 90/60
[2018-09-12 04:00] VITALS: BP 90/60
[2018-09-12 04:54] LABS: BASOPHILS % (AUTO) 0.8 % (0.0-2.0); EOSINOPHILS % (AUTO) 0.5 % (0.0-3.0); HEMATOCRIT 39.7 % (42.0-52.0); HEMOGLOBIN 12.4 G/DL (14.2-18.0); LYMPHOCYTES % (AUTO) 18.4 % (20.0-45.0); MEAN CORPUSCULAR VOLUME 107 FL (80-99); MONOCYTES % (AUTO) 11.8 % (1.0-10.0); NEUTROPHILS % (AUTO) 68.5 % (45.0-75.0); PLATELET COUNT 127 K/UL (150-450); RED BLOOD COUNT 3.71 M/UL (4.70-6.10); WHITE BLOOD COUNT 7.8 K/UL (4.8-10.8)
[2018-09-12 04:57] LABS: INR 1.3 (0.9-1.1)
[2018-09-12 05:52] LABS: ANION GAP 13 mmol/L (5-15); BLOOD UREA NITROGEN 26 mg/dL (7-18); CALCIUM 8.4 MG/DL (8.5-10.1); CARBON DIOXIDE 20 MMOL/L (21-32); CHLORIDE 108 MMOL/L (98-107); CREATININE 1.1 MG/DL (0.55-1.30); POTASSIUM 3.4 MMOL/L (3.5-5.1); SODIUM 141 MMOL/L (136-145)
--- NOTE | 2018-09-12 07:19 | NUR ---
HAND-OFF: Report given to Cecilia RN, pt. remains stable and no signs of distress noted- aware to f/u on potassium trending down.
--- NOTE | 2018-09-12 07:32 | NUR ---
NURSE NOTES: Report received from ANGIE Puckett
[2018-09-12 08:00] VITALS: BP 90/62
--- NOTE | 2018-09-12 08:15 | NUR ---
NURSE NOTES: Patient asleep when received, easily arousal to verbal and tactile stimuli.Afebrile and afib on the monitor.RAC 20 G saline lock.Abdomen soft and non distended.Bowel sounds present in all quadrants.Condom catheter in place draining well yellowish urine with no apparent sediment noted.HOB elevated to prevent aspiration , turned and repositioned for skin management, will continue to monitor.
--- NOTE | 2018-09-12 08:33 | Hematology/Onc Progress Note ---
Assessment/Plan Assessment/Plan Assessment and Recs: # Thrombocytopenia - most likely related to PNA infection. 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 Is ok to change to Lovenox and Coumadin # Anemia of chronic disease due to underlying chronic medical issues, multifactorial. --> Anemia w/u has been reviewed. Ferritin at 450. --> WIll trend CBC as needed. --> hgb goal >7. Transfuse prn. --> No evidence of hemolysis noted # Courtney --> as per renal 1.4-->1.2 # PNA/right hilar mass. CXR has been reviewed. --> May need abx --> pulm eval prn # Myocardial infarction. --> Cardiac cath [address] Conde # Atrial flutter with rapid ventricular response. --> per cards # Psych disorder -- per psych recs Greatly appreciate consultation! Subjective Cardiovascular: Denies: no symptoms, chest pain, edema, irregular heart rate, lightheadedness, palpitations, syncope, other Respiratory: Denies: no symptoms, cough, shortness of breath, SOB with excertion, SOB at rest, sputum, wheezing, other Gastrointestinal/Abdominal: Denies: no symptoms, abdomen distended, abdominal pain, black stools, tarry stools, blood in stool, constipated, diarrhea, difficulty swallowing, nausea, poor appetite, poor fluid intake, rectal bleeding , vomiting, other Genitourinary: Denies: no symptoms, burning, discharge, frequency, flank pain, hematuria, incontinence, pain, urgency, other Endocrine: Denies: no symptoms, excessive sweating, flushing, intolerance to cold, intolerance to heat, increased hunger, increased thirst, increased urine, unexplained weight gain, unexplained weight loss, other Hematologic/Lymphatic: Denies: no symptoms, anemia, easy bleeding, easy bruising, adenopathy, other Allergies: Coded Allergies: No Known Allergies (Unverified , 01/07/18) Subjective 09/11: no fevers noted, no chills, bp is low, remains on eliquis and seen by cards 09/12: no bleeding, no chills, no night sweats, is on lovenox and coumadin, inr goal 2-3 Objective Objective Current Medications Medications (Trade) Dose Ordered Sig/Fritz Route PRN Reason Start Time Stop Time Status Last Admin Dose Admin Acetaminophen (Tylenol) 650 mg Q6H PRN ORAL Mild Pain/Temp > 100.5 09/11/18 19:45 10/11/18 19:44 Carvedilol (Coreg) 3.125 mg EVERY 12 HOURS ORAL 09/11/18 21:00 10/09/18 20:59 Enoxaparin Sodium (Lovenox) 50 mg Q12HR SUBQ 09/11/18 21:00 10/11/18 20:59 09/11/18 22:25 Famotidine (Pepcid) 20 mg DAILY ORAL 09/10/18 09:00 10/10/18 08:59 09/11/18 08:23 Furosemide (Lasix) 40 mg DAILY ORAL 09/10/18 09:00 10/10/18 08:59 09/11/18 08:24 Losartan Potassium (Cozaar) 25 mg DAILY ORAL 09/12/18 09:00 10/10/18 08:59 Olanzapine (ZyPREXA) 2.5 mg BEDTIME ORAL 09/11/18 21:00 10/11/18 20:59 09/11/18 20:20 Potassium Chloride (K-Dur) 40 meq ONCE ORAL 09/12/18 08:30 09/12/18 10:00 Spironolactone (Aldactone) 25 mg DAILY ORAL 09/10/18 09:00 10/10/18 08:59 09/11/18 08:24 Vancomycin HCl (Vanco rx to dose) 1 ea DAILY PRN MISC Per rx protocol 09/10/18 18:30 10/10/18 18:29 Vancomycin HCl 750 mg/Sodium Chloride 275 ml @ 183.333 mls/hr Q24H IVPB 09/11/18 20:00 09/16/18 19:59 09/11/18 20:21 Vitamin A/Vitamin D (A & D Oint) 1 applic EVERY 12 HOURS TOPIC 09/09/18 21:00 10/09/18 20:59 09/11/18 20:26 Warfarin Sodium (Coumadin per pharmacy) 1 ea DAILY PRN MISC Per rx protocol 09/11/18 14:30 10/11/18 14:29 Last 24 Hour Vital Signs Date Time Temp Pulse Resp B/P (MAP) Pulse Ox O2 Delivery O2 Flow Rate FiO2 09/12/18 04:00 97 09/12/18 04:00 98.6 88 18 90/60 (70) 96 09/12/18 04:00 Room Air 09/12/18 00:00 Room Air 09/12/18 00:00 95 09/12/18 00:00 98.8 98 18 90/60 (70) 96 09/11/18 20:01 83 90/62 09/11/18 20:00 98.8 83 18 90/62 (71) 96 09/11/18 20:00 81 09/11/18 20:00 Room Air 09/11/18 16:00 98.1 83 20 93/62 (72) 96 09/11/18 16:00 73 09/11/18 16:00 Room Air 09/11/18 12:00 62 09/11/18 12:00 Room Air 09/11/18 12:00 97.9 73 20 93/62 (72) 96 09/11/18 08:22 99/71 09/11/18 08:22 69 99/71 09/11/18 08:00 Room Air 09/11/18 08:00 76 09/11/18 07:54 97.7 69 24 99/71 (80) 95 09/11/18 04:00 97.8 72 24 109/64 (79) 94 09/11/18 04:00 68 09/11/18 04:00 Room Air 09/11/18 00:00 98.7 88 24 102/69 (80) 97 09/11/18 00:00 Room Air 09/10/18 23:29 71 09/10/18 20:10 71 93/51 09/10/18 20:00 98.4 86 18 93/53 (66) 99 09/10/18 20:00 Room Air 09/10/18 19:46 78 09/10/18 16:00 Room Air 09/10/18 16:00 97.9 84 18 103/56 (72) 96 09/10/18 16:00 84 09/10/18 12:00 70 09/10/18 12:00 97.8 86 17 98/57 (71) 96 09/10/18 12:00 Room Air 09/10/18 09:00 89/54 09/10/18 09:00 77 89/54 Intake and Output 09/11/18 09/12/18 18:59 06:59 Intake Total 500 ml 183.333 ml Output Total 300 ml 350 ml Balance 200 ml -166.667 ml Intake Oral 500 ml IV Total 183.333 ml Output Urine Total 300 ml 350 ml # Bowel Movements 3 4 Labs Test 09/09/18 13:30 09/09/18 14:15 09/09/18 15:30 09/10/18 04:56 White Blood Count 8.7 K/UL (4.8-10.8) 6.4 K/UL (4.8-10.8) Red Blood Count 4.68 M/UL (4.70-6.10) 4.11 M/UL (4.70-6.10) Hemoglobin 15.7 G/DL (14.2-18.0) 14.0 G/DL (14.2-18.0) Hematocrit 51.4 % (42.0-52.0) 45.3 % (42.0-52.0) Mean Corpuscular Volume 110 FL (80-99) 110 FL (80-99) Mean Corpuscular Hemoglobin 33.5 PG (27.0-31.0) 34.1 PG (27.0-31.0) Mean Corpuscular Hemoglobin Concent 30.5 G/DL (32.0-36.0) 31.0 G/DL (32.0-36.0) Red Cell Distribution Width 16.8 % (11.6-14.8) 16.6 % (11.6-14.8) Platelet Count 106 K/UL (150-450) 111 K/UL (150-450) Mean Platelet Volume 10.9 FL (6.5-10.1) 9.1 FL (6.5-10.1) Neutrophils (%) (Auto) 67.0 % (45.0-75.0) 73.2 % (45.0-75.0) Lymphocytes (%) (Auto) 22.7 % (20.0-45.0) 15.1 % (20.0-45.0) Monocytes (%) (Auto) 8.6 % (1.0-10.0) 9.6 % (1.0-10.0) Eosinophils (%) (Auto) 0.6 % (0.0-3.0) 1.2 % (0.0-3.0) Basophils (%) (Auto) 1.1 % (0.0-2.0) 0.9 % (0.0-2.0) Prothrombin Time 14.8 SEC (9.30-11.50) Prothromb Time International Ratio 1.4 (0.9-1.1) Activated Partial Thromboplast Time 32 SEC (23-33) Urine Color Isi Urine Appearance Slightly cloudy Urine pH 5 (4.5-8.0) Urine Specific Vanderwagen 1.020 (1.005-1.035) Urine Protein 1+ (NEGATIVE) Urine Glucose (UA) Negative (NEGATIVE) Urine Ketones 2+ (NEGATIVE) Urine Blood 1+ (NEGATIVE) Urine Nitrite Negative (NEGATIVE) Urine Bilirubin 1+ (NEGATIVE) Urine Ictotest Negative (NEGATIVE) Urine Urobilinogen 8 MG/DL (0.0-1.0) Urine Leukocyte Esterase 1+ (NEGATIVE) Urine RBC 2-4 /HPF (0 - 0) Urine WBC 2-4 /HPF (0 - 0) Urine Squamous Epithelial Cells Occasional /LPF Urine Amorphous Sediment Moderate /LPF (NONE) Urine Bacteria Occasional /HPF (NONE) Urine Hyaline Casts 2-4 /LPF (NONE) Urine Granular Casts 2-4 /LPF (NONE) Urine Fine Granular Casts 0-2 /LPF (NONE) Sodium Level 145 MMOL/L (136-145) 146 MMOL/L (136-145) Potassium Level 3.9 MMOL/L (3.5-5.1) 3.7 MMOL/L (3.5-5.1) Chloride Level 112 MMOL/L (98-107) 113 MMOL/L (98-107) Carbon Dioxide Level 21 MMOL/L (21-32) 25 MMOL/L (21-32) Anion Gap 12 mmol/L (5-15) 8 mmol/L (5-15) Blood Urea Nitrogen 38 mg/dL (7-18) 34 mg/dL (7-18) Creatinine 1.4 MG/DL (0.55-1.30) 1.2 MG/DL (0.55-1.30) Estimat Glomerular Filtration Rate mL/min (>60) mL/min (>60) Glucose Level 74 MG/DL (74-106) 62 MG/DL (74-106) Lactic Acid Level 2.30 mmol/L (0.4-2.0) 2.20 mmol/L (0.66-2.22) Calcium Level 8.9 MG/DL (8.5-10.1) 8.8 MG/DL (8.5-10.1) Phosphorus Level 3.7 MG/DL (2.5-4.9) Magnesium Level 1.9 MG/DL (1.8-2.4) Total Bilirubin 2.7 MG/DL (0.2-1.0) Direct Bilirubin 1.3 MG/DL (0.0-0.3) Aspartate Amino Transf (AST/SGOT) 24 U/L (15-37) Alanine Aminotransferase (ALT/SGPT) < 6 U/L (12-78) Alkaline Phosphatase 53 U/L (46-116) Total Creatine Kinase 35 U/L (26-308) Creatine Kinase MB 0.8 NG/ML (0.0-3.6) Creatine Kinase MB Relative Index 2.2 Troponin I 0.151 ng/mL (0.000-0.056) Total Protein 6.4 G/DL (6.4-8.2) Albumin 2.7 G/DL (3.4-5.0) Globulin 3.7 g/dL Albumin/Globulin Ratio 0.7 (1.0-2.7) Digoxin Level > 5.0 NG/ML (0.5-2.0) Hemoglobin A1c 4.7 % (4.3-6.0) Test 09/11/18 11:30 09/12/18 03:12 Prothrombin Time 13.8 SEC (9.30-11.50) 13.4 SEC (9.30-11.50) Prothromb Time International Ratio 1.3 (0.9-1.1) 1.3 (0.9-1.1) White Blood Count 7.8 K/UL (4.8-10.8) Red Blood Count 3.71 M/UL (4.70-6.10) Hemoglobin 12.4 G/DL (14.2-18.0) Hematocrit 39.7 % (42.0-52.0) Mean Corpuscular Volume 107 FL (80-99) Mean Corpuscular Hemoglobin 33.4 PG (27.0-31.0) Mean Corpuscular Hemoglobin Concent 31.2 G/DL (32.0-36.0) Red Cell Distribution Width 16.0 % (11.6-14.8) Platelet Count 127 K/UL (150-450) Mean Platelet Volume 9.1 FL (6.5-10.1) Neutrophils (%) (Auto) 68.5 % (45.0-75.0) Lymphocytes (%) (Auto) 18.4 % (20.0-45.0) Monocytes (%) (Auto) 11.8 % (1.0-10.0) Eosinophils (%) (Auto) 0.5 % (0.0-3.0) Basophils (%) (Auto) 0.8 % (0.0-2.0) Sodium Level 141 MMOL/L (136-145) Potassium Level 3.4 MMOL/L (3.5-5.1) Chloride Level 108 MMOL/L (98-107) Carbon Dioxide Level 20 MMOL/L (21-32) Anion Gap 13 mmol/L (5-15) Blood Urea Nitrogen 26 mg/dL (7-18) Creatinine 1.1 MG/DL (0.55-1.30) Estimat Glomerular Filtration Rate mL/min (>60) Glucose Level 136 MG/DL (74-106) Calcium Level 8.4 MG/DL (8.5-10.1) Height (Feet): 5 Height (Inches): 11.00 Weight (Pounds): 120 Objective Gen: normal inspection, alert, thin, Chronically Ill Head: atraumatic, normal ENT inspection, normal voice Neck: normal inspection, supple, no bony tend, limited range of motion Respiratory: normal inspection, lungs clear, normal breath sounds Cv: rrr, no edema Gi: normal inspection, normal bowel sounds, non tender Gu: no CVA tenderness Msk: normal inspection, back normal Neurologic: normal inspection, alert, responsive, speech normal Psychiatric: normal inspection, judgement/insight normal Bruce Loya MD Sep 12, 2018 08:33
[2018-09-12] MEDS: Losartan 25mg tab ORAL SCH (09:00)
[2018-09-12] MEDS: Furosemide 40mg tab ORAL SCH (09:20)
[2018-09-12] MEDS: Spironolactone 25mg tab ORAL SCH (09:21)
[2018-09-12] MEDS: Vitamin A&D Oint 2oz Tube TOPIC SCH ×2 (09:31→21:04)
[2018-09-12] MEDS: Enoxaparin Sodium 300mg/3ml vial SUBQ SCH ×2 (09:44→21:04)
--- NOTE | 2018-09-12 10:23 | NUR ---
NURSE NOTES: Turned and repositioned for skin management, mouth care done,will continue to monitor.HOB elevated to prevent aspiration Addendum: 09/12/18 at 1032 by Cecilia Abdi RN Left arm venous duplex done and negative
--- NOTE | 2018-09-12 10:58 | NUR ---
NEGATIVE CUTTERPRIVATE INVESTIGATOR SI: AFIB T.98.2 HR 87 RR 18 B/P 98/62 RA 98% K 3.4 BUN 26 PT 13.4 INR 1.3 IS: VANCO IV LASIX COZAAR PO COREG PO COUMADIN PO DUPLEX STUDY STEP DOWN STATUS
[2018-09-12 12:00] VITALS: BP 97/68
--- NOTE | 2018-09-12 12:13 | Surgery Progress Note ---
Surgery Progress Note Subjective Additional Comments Patient seen and examined at bedside. No acute events. No leukocytosis. Anemia with trending down of hemoglobin. Total bilirubin elevated with elevated direct bilirubin component AST ALT okay Abdominal ultrasound with cholelithiasis Objective Last 24 Hour Vital Signs Date Time Temp Pulse Resp B/P (MAP) Pulse Ox O2 Delivery O2 Flow Rate FiO2 09/12/18 12:00 Room Air 09/12/18 12:00 97.6 90 18 97/68 (78) 98 09/12/18 08:00 78 09/12/18 08:00 98.2 87 18 90/62 (71) 98 09/12/18 08:00 Room Air 09/12/18 04:00 97 09/12/18 04:00 98.6 88 18 90/60 (70) 96 09/12/18 04:00 Room Air 09/12/18 00:00 Room Air 09/12/18 00:00 95 09/12/18 00:00 98.8 98 18 90/60 (70) 96 09/11/18 20:01 83 90/62 09/11/18 20:00 98.8 83 18 90/62 (71) 96 09/11/18 20:00 81 09/11/18 20:00 Room Air 09/11/18 16:00 98.1 83 20 93/62 (72) 96 09/11/18 16:00 73 09/11/18 16:00 Room Air I&O Intake and Output 09/11/18 09/12/18 19:00 07:00 Intake Total 500 ml 183.333 ml Output Total 300 ml 350 ml Balance 200 ml -166.667 ml Intake Oral 500 ml IV Total 183.333 ml Output Urine Total 300 ml 350 ml # Bowel Movements 3 4 Cardiovascular: RSR Respiratory: decreased breath sounds Abdomen: soft, present bowel sounds, other, non-distended Extremities: no cyanosis, other Laboratory Tests Test 09/12/18 03:12 White Blood Count 7.8 K/UL (4.8-10.8) Red Blood Count 3.71 M/UL (4.70-6.10) L Hemoglobin 12.4 G/DL (14.2-18.0) L Hematocrit 39.7 % (42.0-52.0) L Mean Corpuscular Volume 107 FL (80-99) H Mean Corpuscular Hemoglobin 33.4 PG (27.0-31.0) H Mean Corpuscular Hemoglobin Concent 31.2 G/DL (32.0-36.0) L Red Cell Distribution Width 16.0 % (11.6-14.8) H Platelet Count 127 K/UL (150-450) L Mean Platelet Volume 9.1 FL (6.5-10.1) Neutrophils (%) (Auto) 68.5 % (45.0-75.0) Lymphocytes (%) (Auto) 18.4 % (20.0-45.0) L Monocytes (%) (Auto) 11.8 % (1.0-10.0) H Eosinophils (%) (Auto) 0.5 % (0.0-3.0) Basophils (%) (Auto) 0.8 % (0.0-2.0) Prothrombin Time 13.4 SEC (9.30-11.50) H Prothromb Time International Ratio 1.3 (0.9-1.1) H Sodium Level 141 MMOL/L (136-145) Potassium Level 3.4 MMOL/L (3.5-5.1) L Chloride Level 108 MMOL/L (98-107) H Carbon Dioxide Level 20 MMOL/L (21-32) L Anion Gap 13 mmol/L (5-15) Blood Urea Nitrogen 26 mg/dL (7-18) H Creatinine 1.1 MG/DL (0.55-1.30) Estimat Glomerular Filtration Rate mL/min (>60) Glucose Level 136 MG/DL (74-106) H Calcium Level 8.4 MG/DL (8.5-10.1) L Plan Problems: (1) Decubitus skin ulcer Assessment & Plan: Pt presented on admission with multiple pressure injuries. Open DTPI noted to Sacrum .Base of wound indurated ,purple with two open areas .Wound in its entirety measures (L)9cm x (W)8.5cm. Proximal wound within base of DTPI measures (L)2cm x (W03cm .Base of wound regina with 10% slough.Inferior but in close proximity second wound within DTPI measures (L)0.8cm x (W) 0.6cm.Base of wound regina. Resolving pressure injury noted to L ischium .Base of wound pale with dry borders. DTPI noted to L trochanter .Base of wound indurated, purple with scattered striations that are maroon in colourwiti=hin base of wound.(L)12cm x (W) 7cm.Site tender when minimally palpated. L heel maroon in colour with fluctuance. Tender when minimally palpated (L) 6.5cm x (W)6cm. R heel maroon in colour with fluctuance. Tender when minimally palpated.(L) 5.5cm x (W)7cm. Darker skin tone noted to lateral/posterior R tibia. Non-blanching erythema with fluctuance noted to tips of R and L 1st metatarsals. Spouse at bedside and all skin findings addressed with spouse .Spouse has been educated of risks for further skin decline, including possibility of DTPIs becoming open wounds.Spouse has been informed of interventions being implemented to minimize risks for further skin breakdown. Albumin low. nutritional optimization Tx.Plan: Cleanse Sacral wound with Saline. Apply Therahoney to open wounds.Apply Triad Paste periwound .Cover with Optifoam drsg. Change Daily and prn. Apply Cavilon Skin Barrier to Both heels. Cover each heel with Optifoam drsg. Change every 7 days and prn. Apply Cavilon Skin Barrier to both heels. Cover each heel with Optifoam drsg. Change every 7 days and prn. APM/TRACIE mattress overlay. Reposition at least every 2hours or as tolerated. Off-load heels with pillow. (2) Abnormal LFTs Assessment & Plan: Patient identified to have a elevated total bilirubin with a elevated direct bilirubin component. AST ALT alk phos are okay otherwise. Abdominal ultrasound identified and demonstrated cholelithiasis. Etiology of elevated liver enzymes currently unknown Potential medication reaction versus component of cholelithiasis Will order repeat labs for tomorrow morning and trend No acute surgical intervention at this time Roberto Grimm Sep 12, 2018 12:13
--- NOTE | 2018-09-12 12:22 | NUR ---
NURSE NOTES: Peripheral line inserted right wrist and d/c left wrist saline lock.Turned and repositioned, HOB elevated at 35 degree, no acute distress, awake and watching tv, will continue to monitor
--- NOTE | 2018-09-12 14:11 | NUR ---
NURSE NOTES: Patient turned and repositioned,HOB elevate do prevent aspiration.Will continue to monitor
--- NOTE | 2018-09-12 14:34 | Infectious Diseases Prog Note ---
Assessment/Plan Assessment/Plan IMPRESSION: 1. Positive blood culture with staph Simulans likely contamination 2. Cholelithiasis 3. Atrial flutter. 4. Thrombocytopenia. 5. Congestive heart failure. 6. Aortic stenosis. 7. Mitral regurgitation. 8. Acute renal failure. 9. Nonischemic cardiomyopathy RECOMMENDATIONS: Discontinue Vancomycin Poor prognosis Subjective ROS Limited/Unobtainable: Yes Constitutional: Reports: fatigue Respiratory: Reports: dry cough Cardiovascular: Reports: no symptoms Gastrointestinal/Abdominal: Reports: no symptoms Genitourinary: Reports: no symptoms Allergies: Coded Allergies: No Known Allergies (Unverified , 01/07/18) Objective Vital Signs Last 24 Hour Vital Signs Date Time Temp Pulse Resp B/P (MAP) Pulse Ox O2 Delivery O2 Flow Rate FiO2 09/12/18 12:00 90 09/12/18 12:00 Room Air 09/12/18 12:00 97.6 90 18 97/68 (78) 98 09/12/18 08:00 78 09/12/18 08:00 98.2 87 18 90/62 (71) 98 09/12/18 08:00 Room Air 09/12/18 04:00 97 09/12/18 04:00 98.6 88 18 90/60 (70) 96 09/12/18 04:00 Room Air 09/12/18 00:00 Room Air 09/12/18 00:00 95 09/12/18 00:00 98.8 98 18 90/60 (70) 96 09/11/18 20:01 83 90/62 09/11/18 20:00 98.8 83 18 90/62 (71) 96 09/11/18 20:00 81 09/11/18 20:00 Room Air 09/11/18 16:00 98.1 83 20 93/62 (72) 96 09/11/18 16:00 73 09/11/18 16:00 Room Air Height (Feet): 5 Height (Inches): 11.00 Weight (Pounds): 120 General Appearance: no acute distress HEENT: mucous membranes moist Respiratory/Chest: lungs clear Cardiovascular: normal rate Abdomen: soft, non tender Extremities: no edema Neurologic/Psychiatric: alert, responsive Laboratory Tests Test 09/12/18 03:12 White Blood Count 7.8 K/UL (4.8-10.8) Red Blood Count 3.71 M/UL (4.70-6.10) L Hemoglobin 12.4 G/DL (14.2-18.0) L Hematocrit 39.7 % (42.0-52.0) L Mean Corpuscular Volume 107 FL (80-99) H Mean Corpuscular Hemoglobin 33.4 PG (27.0-31.0) H Mean Corpuscular Hemoglobin Concent 31.2 G/DL (32.0-36.0) L Red Cell Distribution Width 16.0 % (11.6-14.8) H Platelet Count 127 K/UL (150-450) L Mean Platelet Volume 9.1 FL (6.5-10.1) Neutrophils (%) (Auto) 68.5 % (45.0-75.0) Lymphocytes (%) (Auto) 18.4 % (20.0-45.0) L Monocytes (%) (Auto) 11.8 % (1.0-10.0) H Eosinophils (%) (Auto) 0.5 % (0.0-3.0) Basophils (%) (Auto) 0.8 % (0.0-2.0) Prothrombin Time 13.4 SEC (9.30-11.50) H Prothromb Time International Ratio 1.3 (0.9-1.1) H Sodium Level 141 MMOL/L (136-145) Potassium Level 3.4 MMOL/L (3.5-5.1) L Chloride Level 108 MMOL/L (98-107) H Carbon Dioxide Level 20 MMOL/L (21-32) L Anion Gap 13 mmol/L (5-15) Blood Urea Nitrogen 26 mg/dL (7-18) H Creatinine 1.1 MG/DL (0.55-1.30) Estimat Glomerular Filtration Rate mL/min (>60) Glucose Level 136 MG/DL (74-106) H Calcium Level 8.4 MG/DL (8.5-10.1) L Current Medications Medications (Trade) Dose Ordered Sig/Fritz Route PRN Reason Start Time Stop Time Status Last Admin Dose Admin Acetaminophen (Tylenol) 650 mg Q6H PRN ORAL Mild Pain/Temp > 100.5 09/11/18 19:45 10/11/18 19:44 Carvedilol (Coreg) 3.125 mg EVERY 12 HOURS ORAL 09/11/18 21:00 10/09/18 20:59 Enoxaparin Sodium (Lovenox) 50 mg Q12HR SUBQ 09/11/18 21:00 10/11/18 20:59 09/12/18 09:44 Famotidine (Pepcid) 20 mg DAILY ORAL 09/10/18 09:00 10/10/18 08:59 09/12/18 09:20 Furosemide (Lasix) 40 mg DAILY ORAL 09/10/18 09:00 10/10/18 08:59 09/12/18 09:20 Losartan Potassium (Cozaar) 25 mg DAILY ORAL 09/12/18 09:00 10/10/18 08:59 Olanzapine (ZyPREXA) 2.5 mg BEDTIME ORAL 09/11/18 21:00 10/11/18 20:59 09/11/18 20:20 Spironolactone (Aldactone) 25 mg DAILY ORAL 09/10/18 09:00 10/10/18 08:59 09/12/18 09:21 Vancomycin HCl (Vanco rx to dose) 1 ea DAILY PRN MISC Per rx protocol 09/10/18 18:30 10/10/18 18:29 Vancomycin HCl 750 mg/Sodium Chloride 275 ml @ 183.333 mls/hr Q24H IVPB 09/11/18 20:00 09/16/18 19:59 09/11/18 20:21 Vitamin A/Vitamin D (A & D Oint) 1 applic EVERY 12 HOURS TOPIC 09/09/18 21:00 10/09/18 20:59 09/12/18 09:31 Warfarin Sodium (Coumadin per pharmacy) 1 ea DAILY PRN MISC Per rx protocol 09/11/18 14:30 10/11/18 14:29 Alexis Rivera MD Sep 12, 2018 14:34
--- NOTE | 2018-09-12 15:37 | NUR ---
NURSE NOTES: Seen by Dr Conde,will follow up with new orders
--- NOTE | 2018-09-12 15:53 | Cardiac Electrophysiology PN ---
Assessment/Plan Assessment/Plan 1. Atrial flutter with rapid ventricular response, heart rate in 140s, better on Coreg 3.125 mg b.i.d. and Lovenox and coumadin. The patient had atrial flutter in December 2017 and would benefit from atrial flutter ablation.That will be done after the patient is stabilized. 2. Severe cardiomyopathy with ejection fraction of 15%. Cardiac catheterization by me in December 2017. Continue Cozaar 25 mg daily, Lasix 40 mg daily, Aldactone 25 mg daily, and Coreg 3.125 mg b.i.d. 3. 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 History of DVT, on Eliquis. 5. History of hypertension. 6. Severe MAIK 0.3 DW RN and Subjective Subjective Laying flat in bed despite EF 15%. Remained in flutter. Now on Coumadin and Lovenox for LV clot. at bedside Objective Last 24 Hour Vital Signs Date Time Temp Pulse Resp B/P (MAP) Pulse Ox O2 Delivery O2 Flow Rate FiO2 09/12/18 12:00 90 09/12/18 12:00 Room Air 09/12/18 12:00 97.6 90 18 97/68 (78) 98 09/12/18 08:00 78 09/12/18 08:00 98.2 87 18 90/62 (71) 98 09/12/18 08:00 Room Air 09/12/18 04:00 97 09/12/18 04:00 98.6 88 18 90/60 (70) 96 09/12/18 04:00 Room Air 09/12/18 00:00 Room Air 09/12/18 00:00 95 09/12/18 00:00 98.8 98 18 90/60 (70) 96 09/11/18 20:01 83 90/62 09/11/18 20:00 98.8 83 18 90/62 (71) 96 09/11/18 20:00 81 09/11/18 20:00 Room Air 09/11/18 16:00 98.1 83 20 93/62 (72) 96 09/11/18 16:00 73 09/11/18 16:00 Room Air Intake and Output 09/11/18 09/12/18 19:00 07:00 Intake Total 500 ml 183.333 ml Output Total 300 ml 350 ml Balance 200 ml -166.667 ml Intake Oral 500 ml IV Total 183.333 ml Output Urine Total 300 ml 350 ml # Bowel Movements 3 4 Laboratory Tests Test 09/12/18 03:12 White Blood Count 7.8 K/UL (4.8-10.8) Red Blood Count 3.71 M/UL (4.70-6.10) L Hemoglobin 12.4 G/DL (14.2-18.0) L Hematocrit 39.7 % (42.0-52.0) L Mean Corpuscular Volume 107 FL (80-99) H Mean Corpuscular Hemoglobin 33.4 PG (27.0-31.0) H Mean Corpuscular Hemoglobin Concent 31.2 G/DL (32.0-36.0) L Red Cell Distribution Width 16.0 % (11.6-14.8) H Platelet Count 127 K/UL (150-450) L Mean Platelet Volume 9.1 FL (6.5-10.1) Neutrophils (%) (Auto) 68.5 % (45.0-75.0) Lymphocytes (%) (Auto) 18.4 % (20.0-45.0) L Monocytes (%) (Auto) 11.8 % (1.0-10.0) H Eosinophils (%) (Auto) 0.5 % (0.0-3.0) Basophils (%) (Auto) 0.8 % (0.0-2.0) Prothrombin Time 13.4 SEC (9.30-11.50) H Prothromb Time International Ratio 1.3 (0.9-1.1) H Sodium Level 141 MMOL/L (136-145) Potassium Level 3.4 MMOL/L (3.5-5.1) L Chloride Level 108 MMOL/L (98-107) H Carbon Dioxide Level 20 MMOL/L (21-32) L Anion Gap 13 mmol/L (5-15) Blood Urea Nitrogen 26 mg/dL (7-18) H Creatinine 1.1 MG/DL (0.55-1.30) Estimat Glomerular Filtration Rate mL/min (>60) Glucose Level 136 MG/DL (74-106) H Calcium Level 8.4 MG/DL (8.5-10.1) L Objective HEAD AND NECK: Mild JVD. LUNGS: Coarse rhonchi. CARDIOVASCULAR: Irregular. S1 and S2 with no gallop or murmur. ABDOMEN: Soft. EXTREMITIES: No pitting edema. Antonio Conde MD Sep 12, 2018 15:53
[2018-09-12 16:00] VITALS: BP 93/74
--- NOTE | 2018-09-12 16:21 | NUR ---
NURSE NOTES: Mduh care done,turned and repositioned.One episode large stool, good pericare done.Kept clean and dry.Will continue to monitor
[2018-09-12] MEDS ORDERED: Warfarin Sodium 4mg PO ONE (17:00)
--- NOTE | 2018-09-12 18:42 | NUR ---
NURSE NOTES: Patient turned and repositioned, mouth care done.PVC x4 and Dr Conde made aware, kept on close monitoring
--- NOTE | 2018-09-12 19:10 | NUR ---
HAND-OFF: Report given to ANGIE Nelson.
--- NOTE | 2018-09-12 19:11 | NUR ---
NURSE NOTES: Received patient from ANGIE Brooks. patient is observed sleeping in bed, arousable to name and light shaking. no s/sx of pain noted at this time. patient's is at bedside. patient is on room air, no s/sx of respiratory distress noted at this time. condom catheter is patent and intact, draining well. IV sites patent and intact, asymptomatic. bed in lowest position and locked, siderails up X3, call light within reach. will continue to monitor.
[2018-09-12 20:00] VITALS: BP 119/58
[2018-09-12] MEDS: OLANZapine 2.5mg tab ORAL SCH (21:02)
--- NOTE | 2018-09-12 23:42 | CDS Physician Query ---
Clarification is required for compliance, coding accuracy, and to reflect severity of illness for this patient Dear Dr. Grimm Date: 09/12/18 CDS: Ramirez Burgos A diagnosis of Decubitus ulcer has been identified in this patient. Please clarify the location and stage of the ulcer for greater specificity. Location of decubitus or pressure ulcer: Sacrum [ ] Stage I (Non-blanching erythema of intact skin, the heralding lesion of skin ulceration, is present. In individuals with darker skin, discoloration, warmth, edema, induration, or hardness may be indicators.) [ ] Stage II (There is partial thickness skin loss involving epidermis, dermis, or both. The lesion is superficial and presents clinically as an abrasion, blister, or shallow center.) [ ] Stage III (Full thickness skin loss involving damage or necrosis of subcutaneous tissue that may extend down to, but not through the underlying fascia exists. The sore presents clinically as a deep crater with or without undermining of adjacent tissue.) [ ] Stage IV (Full thickness skin loss with extensive destruction, tissue necrosis, or damage to muscle, bone, or supporting structures is present.) [ XX ] Unstageable Present on Admission: [ XX ] Yes [ ] No [ ] Clinically Undetermined Physician signature Date Please also document in your Progress Notes and/or Discharge Summary and indicate if the condition was present on admission. MTDD
[2018-09-13] VITALS: BP 100/71
--- NOTE | 2018-09-13 02:30 | Progress Note ---
DATE: 09/13/2018 SUBJECTIVE: The patient is doing better, was able to sleep better and more alert. Still disoriented. . His is at bedside. MENTAL STATUS EXAMINATION: The patient is alert and oriented times self and place. Mood is neutral to anxious. Affect is flat. Thought process is concrete. Thought content, no suicidal or homicidal ideations. ASSESSMENT: Acute encephalopathy with cognitive impairment. PLAN: We will continue with current medications. Provide the patient with reality orientation and supportive therapy. Rozina Angela M.D. DR: RERE JOB#: [id number] CC:
[2018-09-13 04:00] VITALS: BP 122/64
[2018-09-13 06:52] LABS: INR 1.3 (0.9-1.1)
--- NOTE | 2018-09-13 07:17 | NUR ---
HAND-OFF: Report given to ANGIE Terrell. patient is in stable condition.
[2018-09-13 07:18] LABS: EOSINOPHILS % (AUTO) 0.4 % (0.0-3.0); HEMATOCRIT 41.2 % (42.0-52.0); HEMOGLOBIN 12.9 G/DL (14.2-18.0); MEAN CORPUSCULAR VOLUME 108 FL (80-99); MONOCYTES % (AUTO) 12.1 % (1.0-10.0); NEUTROPHILS % (AUTO) 67.5 % (45.0-75.0); PLATELET COUNT 127 K/UL (150-450); RED BLOOD COUNT 3.81 M/UL (4.70-6.10); RED CELL DISTRIBUTION WIDTH 16.3 % (11.6-14.8); WHITE BLOOD COUNT 7.4 K/UL (4.8-10.8)
--- NOTE | 2018-09-13 07:18 | NUR ---
NURSE NOTES: received patient report from tony conner. patient is on bed awake. with family member at bedside feeding the patient. patient is noted to be AOX3-4 and responding to name. not shahram cute distress. patient is noted to have difficulty swallowing, will ask Md for swallow eval. will continue ot monitor.
[2018-09-13 07:49] LABS: ALANINE AMINOTRANSFERASE < 6 U/L (12-78); ALBUMIN 2.3 G/DL (3.4-5.0); ALBUMIN/GLOBULIN RATIO 0.6 (1.0-2.7); ALKALINE PHOSPHATASE 53 U/L (46-116); ANION GAP 9 mmol/L (5-15); ASPARTATE AMINO TRANSFERASE 20 U/L (15-37); BLOOD UREA NITROGEN 21 mg/dL (7-18); CALCIUM 8.5 MG/DL (8.5-10.1); CARBON DIOXIDE 24 MMOL/L (21-32); CHLORIDE 111 MMOL/L (98-107); CREATININE 1.2 MG/DL (0.55-1.30); POTASSIUM 3.9 MMOL/L (3.5-5.1); SODIUM 144 MMOL/L (136-145)
[2018-09-13 07:52] LABS: BILIRUBIN,DIRECT 0.9 MG/DL (0.0-0.3)
[2018-09-13 08:00] VITALS: BP 107/60
[2018-09-13] MEDS: Losartan 25mg tab ORAL SCH (08:25)
[2018-09-13] MEDS: Spironolactone 25mg tab ORAL SCH (08:25)
[2018-09-13] MEDS: Furosemide 40mg tab ORAL SCH (08:25)
[2018-09-13] MEDS: Enoxaparin Sodium 300mg/3ml vial SUBQ SCH ×2 (08:28→20:48)
[2018-09-13] MEDS: Vitamin A&D Oint 2oz Tube TOPIC SCH ×2 (08:53→20:39)
[2018-09-13] MEDS ORDERED: NS 275ml ONE ×2 (09:56→15:48)
[2018-09-13 12:00] VITALS: BP 89/71
--- NOTE | 2018-09-13 12:30 | NUR ---
NURSE NOTES: negro todd MD for dr Watt made aware of the change in patients condition. that SBP is low 31-89 and unable to open eyes but responsive when name called. dr jones acknowledge the report and ordered to inform dr cam as well regarding patients change in condition.will take note and carry out.
--- NOTE | 2018-09-13 13:27 | NUR ---
NURSE NOTES: left a message to dr cam regarding patients low SBP as ordered by dr lucas to inform him of the patients condition. awaits callback and new order.
--- NOTE | 2018-09-13 14:28 | NUR ---
NURSE NOTES: dr cam called back and ordered to give NS 250 bolus. will take note and carry out.
[2018-09-13] MEDS ORDERED: NS 250 ML IVLG ONE (14:30)
[2018-09-13 16:00] VITALS: BP 92/62
--- NOTE | 2018-09-13 16:56 | NUR ---
NURSE NOTES: DR SHANKS MADE AWARE OF THE BLOOD PRESSURE AFTER GIVING [address] SHANKS. DO NOT TRANSFER PATIENT TO TELE. WILL TAKE NOTE AND CARRY OUT.
[2018-09-13] MEDS ORDERED: Warfarin Sodium 3mg ORAL SCH (17:00)
--- NOTE | 2018-09-13 17:39 | Cardiac Electrophysiology PN ---
Assessment/Plan Assessment/Plan 1. Atrial flutter with rapid ventricular response, heart rate in 140s, better on Coreg 3.125 mg b.i.d. and Lovenox and Coumadin. Had atrial flutter in December 2017 and would benefit from atrial flutter ablation when stabilized. 2. Severe cardiomyopathy with ejection fraction of 15%. Cardiac catheterization by me in December 2017. On Cozaar 25 mg daily, Lasix 40 mg daily, Aldactone 25 mg daily, and Coreg 3.125 mg b.i.d. ( Hold for SBP<100) 3. 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 History of DVT, on Eliquis. 5. History of hypertension. 6. Severe MAIK 0.3 DW RN and Subjective Subjective BP dropped to 80s. EF 15%. Remained in flutter. On Coumadin and Lovenox for LV clot. at bedside Objective Last 24 Hour Vital Signs Date Time Temp Pulse Resp B/P (MAP) Pulse Ox O2 Delivery O2 Flow Rate FiO2 09/13/18 16:00 97.7 104 24 92/62 (72) 100 09/13/18 12:00 98.2 87 26 89/71 (77) 100 09/13/18 11:45 87 09/13/18 08:25 107/60 09/13/18 08:00 98.1 77 20 107/60 (76) 94 09/13/18 08:00 Room Air 09/13/18 07:46 78 09/13/18 04:00 70 09/13/18 04:00 Room Air 09/13/18 04:00 97.8 86 20 122/64 (83) 99 09/13/18 00:00 Room Air 09/13/18 00:00 85 09/13/18 00:00 97.9 85 20 100/71 (81) 100 09/12/18 21:02 90 119/58 09/12/18 20:00 90 09/12/18 20:00 Room Air 09/12/18 20:00 98.1 90 22 119/58 (78) 97 Intake and Output 09/12/18 09/13/18 19:00 07:00 Intake Total 1022 ml Output Total 900 ml 250 ml Balance 122 ml -250 ml Intake Oral 1022 ml Output Urine Total 900 ml 250 ml # Bowel Movements 5 Laboratory Tests Test 09/13/18 06:00 09/13/18 06:20 White Blood Count 7.4 K/UL (4.8-10.8) Red Blood Count 3.81 M/UL (4.70-6.10) L Hemoglobin 12.9 G/DL (14.2-18.0) L Hematocrit 41.2 % (42.0-52.0) L Mean Corpuscular Volume 108 FL (80-99) H Mean Corpuscular Hemoglobin 33.8 PG (27.0-31.0) H Mean Corpuscular Hemoglobin Concent 31.3 G/DL (32.0-36.0) L Red Cell Distribution Width 16.3 % (11.6-14.8) H Platelet Count 127 K/UL (150-450) L Mean Platelet Volume 9.2 FL (6.5-10.1) Neutrophils (%) (Auto) 67.5 % (45.0-75.0) Lymphocytes (%) (Auto) 19.0 % (20.0-45.0) L Monocytes (%) (Auto) 12.1 % (1.0-10.0) H Eosinophils (%) (Auto) 0.4 % (0.0-3.0) Basophils (%) (Auto) 1.0 % (0.0-2.0) Prothrombin Time 13.2 SEC (9.30-11.50) H Prothromb Time International Ratio 1.3 (0.9-1.1) H Activated Partial Thromboplast Time 41 SEC (23-33) H Sodium Level 144 MMOL/L (136-145) Potassium Level 3.9 MMOL/L (3.5-5.1) Chloride Level 111 MMOL/L (98-107) H Carbon Dioxide Level 24 MMOL/L (21-32) Anion Gap 9 mmol/L (5-15) Blood Urea Nitrogen 21 mg/dL (7-18) H Creatinine 1.2 MG/DL (0.55-1.30) Estimat Glomerular Filtration Rate mL/min (>60) Glucose Level 98 MG/DL (74-106) Calcium Level 8.5 MG/DL (8.5-10.1) Total Bilirubin 2.0 MG/DL (0.2-1.0) H Direct Bilirubin 0.9 MG/DL (0.0-0.3) H Aspartate Amino Transf (AST/SGOT) 20 U/L (15-37) Alanine Aminotransferase (ALT/SGPT) < 6 U/L (12-78) L Alkaline Phosphatase 53 U/L (46-116) Total Protein 6.2 G/DL (6.4-8.2) L Albumin 2.3 G/DL (3.4-5.0) L Globulin 3.9 g/dL Albumin/Globulin Ratio 0.6 (1.0-2.7) L Lipase 102 U/L (73-393) Objective HEAD AND NECK: Mild JVD. LUNGS: Coarse rhonchi. CARDIOVASCULAR: Irregular. S1 and S2 with no gallop or murmur. ABDOMEN: Soft. EXTREMITIES: No pitting edema. Antonio Conde MD Sep 13, 2018 17:39
--- NOTE | 2018-09-13 18:58 | NUR ---
HAND-OFF: Report given to tony connre.
--- NOTE | 2018-09-13 19:00 | NUR ---
NURSE NOTES: Received patient from ANGIE Terrell. patient is observed sleeping in bed, arousable to name, no s/sx of pain noted at this time. patient is on room air, no s/sx of respiratory distress noted at this time. Condom catheter is patent and intact, draining well. IV sites are patent and intact, asymptomatic. bed in lowest position and locked, siderails up X3, call light within reach. will continue to monitor.
[2018-09-13 20:00] VITALS: BP 110/65
[2018-09-13] MEDS: OLANZapine 2.5mg tab ORAL SCH (20:49)
--- NOTE | 2018-09-13 21:53 | Hematology/Onc Progress Note ---
Assessment/Plan Assessment/Plan Assessment and Recs: # Thrombocytopenia - most likely related to PNA infection. 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 Is ok to change to Lovenox and Coumadin # Anemia of chronic disease due to underlying chronic medical issues, multifactorial. --> Anemia w/u has been reviewed. Ferritin at 450. --> WIll trend CBC as needed. --> hgb goal >7. Transfuse prn. --> No evidence of hemolysis noted # Courtney --> as per renal 1.4-->1.2 # PNA/right hilar mass. CXR has been reviewed. --> May need abx --> pulm eval prn # Myocardial infarction. --> Cardiac cath [address] Conde # Atrial flutter with rapid ventricular response. --> per cards # Psych disorder -- per psych recs Greatly appreciate consultation! Subjective Constitutional: Denies: no symptoms, chills, fever, malaise, weakness, other HEENT: Denies: no symptoms, eye pain, blurred vision, tearing, double vision, ear pain, ear discharge, nose pain, nose congestion, throat pain, throat swelling, mouth pain, mouth swelling, other Respiratory: Denies: no symptoms, cough, shortness of breath, SOB with excertion, SOB at rest, sputum, wheezing, other Genitourinary: Denies: no symptoms, burning, discharge, frequency, flank pain, hematuria, incontinence, pain, urgency, other Allergies: Coded Allergies: No Known Allergies (Unverified , 01/07/18) Subjective 09/11: no fevers noted, no chills, bp is low, remains on eliquis and seen by cards 09/12: no bleeding, no chills, no night sweats, is on lovenox and coumadin, inr goal 2-3 09/13: no events, inr higher, no f/c, no bleeding Objective Objective Current Medications Medications (Trade) Dose Ordered Sig/Fritz Route PRN Reason Start Time Stop Time Status Last Admin Dose Admin Acetaminophen (Tylenol) 650 mg Q6H PRN ORAL Mild Pain/Temp > 100.5 09/11/18 19:45 10/11/18 19:44 Carvedilol (Coreg) 3.125 mg EVERY 12 HOURS ORAL 09/11/18 21:00 10/09/18 20:59 09/13/18 20:41 Enoxaparin Sodium (Lovenox) 50 mg Q12HR SUBQ 09/11/18 21:00 10/11/18 20:59 09/13/18 20:48 Famotidine (Pepcid) 20 mg DAILY ORAL 09/10/18 09:00 10/10/18 08:59 09/13/18 08:25 Furosemide (Lasix) 40 mg DAILY ORAL 09/10/18 09:00 10/10/18 08:59 09/13/18 08:25 Losartan Potassium (Cozaar) 25 mg DAILY ORAL 09/12/18 09:00 10/10/18 08:59 Olanzapine (ZyPREXA) 2.5 mg BEDTIME ORAL 09/11/18 21:00 10/11/18 20:59 09/12/18 21:02 Spironolactone (Aldactone) 25 mg DAILY ORAL 09/14/18 09:00 10/10/18 08:59 Vitamin A/Vitamin D (A & D Oint) 1 applic EVERY 12 HOURS TOPIC 09/09/18 21:00 10/09/18 20:59 09/13/18 20:39 Warfarin Sodium (Coumadin per pharmacy) 1 ea DAILY PRN MISC Per rx protocol 09/11/18 14:30 10/11/18 14:29 Last 24 Hour Vital Signs Date Time Temp Pulse Resp B/P (MAP) Pulse Ox O2 Delivery O2 Flow Rate FiO2 09/13/18 20:41 86 106/67 09/13/18 20:00 102 09/13/18 20:00 97.7 102 24 110/65 (80) 100 09/13/18 20:00 Room Air 09/13/18 17:23 83 09/13/18 16:00 97.7 104 24 92/62 (72) 100 09/13/18 12:00 98.2 87 26 89/71 (77) 100 09/13/18 11:45 87 09/13/18 08:25 107/60 09/13/18 08:00 98.1 77 20 107/60 (76) 94 09/13/18 08:00 Room Air 09/13/18 07:46 78 09/13/18 04:00 70 09/13/18 04:00 Room Air 09/13/18 04:00 97.8 86 20 122/64 (83) 99 09/13/18 00:00 Room Air 09/13/18 00:00 85 09/13/18 00:00 97.9 85 20 100/71 (81) 100 09/12/18 21:02 90 119/58 09/12/18 20:00 90 09/12/18 20:00 Room Air 09/12/18 20:00 98.1 90 22 119/58 (78) 97 09/12/18 17:00 Room Air 09/12/18 16:00 98.7 90 16 93/74 (80) 96 09/12/18 16:00 105 09/12/18 12:00 90 09/12/18 12:00 Room Air 09/12/18 12:00 97.6 90 18 97/68 (78) 98 09/12/18 08:00 78 09/12/18 08:00 98.2 87 18 90/62 (71) 98 09/12/18 08:00 Room Air 09/12/18 04:00 97 09/12/18 04:00 98.6 88 18 90/60 (70) 96 09/12/18 04:00 Room Air 09/12/18 00:00 Room Air 09/12/18 00:00 95 09/12/18 00:00 98.8 98 18 90/60 (70) 96 Intake and Output 09/12/18 09/13/18 19:00 07:00 Intake Total 1022 ml Output Total 900 ml 250 ml Balance 122 ml -250 ml Intake Oral 1022 ml Output Urine Total 900 ml 250 ml # Bowel Movements 5 Labs Test 09/11/18 11:30 09/12/18 03:12 09/13/18 06:00 09/13/18 06:20 Prothrombin Time 13.8 SEC (9.30-11.50) 13.4 SEC (9.30-11.50) 13.2 SEC (9.30-11.50) Prothromb Time International Ratio 1.3 (0.9-1.1) 1.3 (0.9-1.1) 1.3 (0.9-1.1) White Blood Count 7.8 K/UL (4.8-10.8) 7.4 K/UL (4.8-10.8) Red Blood Count 3.71 M/UL (4.70-6.10) 3.81 M/UL (4.70-6.10) Hemoglobin 12.4 G/DL (14.2-18.0) 12.9 G/DL (14.2-18.0) Hematocrit 39.7 % (42.0-52.0) 41.2 % (42.0-52.0) Mean Corpuscular Volume 107 FL (80-99) 108 FL (80-99) Mean Corpuscular Hemoglobin 33.4 PG (27.0-31.0) 33.8 PG (27.0-31.0) Mean Corpuscular Hemoglobin Concent 31.2 G/DL (32.0-36.0) 31.3 G/DL (32.0-36.0) Red Cell Distribution Width 16.0 % (11.6-14.8) 16.3 % (11.6-14.8) Platelet Count 127 K/UL (150-450) 127 K/UL (150-450) Mean Platelet Volume 9.1 FL (6.5-10.1) 9.2 FL (6.5-10.1) Neutrophils (%) (Auto) 68.5 % (45.0-75.0) 67.5 % (45.0-75.0) Lymphocytes (%) (Auto) 18.4 % (20.0-45.0) 19.0 % (20.0-45.0) Monocytes (%) (Auto) 11.8 % (1.0-10.0) 12.1 % (1.0-10.0) Eosinophils (%) (Auto) 0.5 % (0.0-3.0) 0.4 % (0.0-3.0) Basophils (%) (Auto) 0.8 % (0.0-2.0) 1.0 % (0.0-2.0) Sodium Level 141 MMOL/L (136-145) 144 MMOL/L (136-145) Potassium Level 3.4 MMOL/L (3.5-5.1) 3.9 MMOL/L (3.5-5.1) Chloride Level 108 MMOL/L (98-107) 111 MMOL/L (98-107) Carbon Dioxide Level 20 MMOL/L (21-32) 24 MMOL/L (21-32) Anion Gap 13 mmol/L (5-15) 9 mmol/L (5-15) Blood Urea Nitrogen 26 mg/dL (7-18) 21 mg/dL (7-18) Creatinine 1.1 MG/DL (0.55-1.30) 1.2 MG/DL (0.55-1.30) Estimat Glomerular Filtration Rate mL/min (>60) mL/min (>60) Glucose Level 136 MG/DL (74-106) 98 MG/DL (74-106) Calcium Level 8.4 MG/DL (8.5-10.1) 8.5 MG/DL (8.5-10.1) Activated Partial Thromboplast Time 41 SEC (23-33) Total Bilirubin 2.0 MG/DL (0.2-1.0) Direct Bilirubin 0.9 MG/DL (0.0-0.3) Aspartate Amino Transf (AST/SGOT) 20 U/L (15-37) Alanine Aminotransferase (ALT/SGPT) < 6 U/L (12-78) Alkaline Phosphatase 53 U/L (46-116) Total Protein 6.2 G/DL (6.4-8.2) Albumin 2.3 G/DL (3.4-5.0) Globulin 3.9 g/dL Albumin/Globulin Ratio 0.6 (1.0-2.7) Lipase 102 U/L (73-393) Height (Feet): 5 Height (Inches): 11.00 Weight (Pounds): 120 Objective Gen: normal inspection, alert, thin, Chronically Ill Head: atraumatic, normal ENT inspection, normal voice Neck: normal inspection, supple, no bony tend, limited range of motion Respiratory: normal inspection, lungs clear, normal breath sounds Cv: rrr, no edema Gi: normal inspection, normal bowel sounds, non tender Gu: no CVA tenderness Msk: normal inspection, back normal Neurologic: normal inspection, alert, responsive, speech normal Psychiatric: normal inspection, judgement/insight normal Bruce Loya MD Sep 13, 2018 21:53
--- NOTE | 2018-09-13 21:58 | Surgery Progress Note ---
Surgery Progress Note Subjective Additional Comments n oacute events comfortable labs noted INR noted exam unchanged. Objective Last 24 Hour Vital Signs Date Time Temp Pulse Resp B/P (MAP) Pulse Ox O2 Delivery O2 Flow Rate FiO2 09/13/18 20:41 86 106/67 09/13/18 20:00 102 09/13/18 20:00 97.7 102 24 110/65 (80) 100 09/13/18 20:00 Room Air 09/13/18 17:23 83 09/13/18 16:00 97.7 104 24 92/62 (72) 100 09/13/18 12:00 98.2 87 26 89/71 (77) 100 09/13/18 11:45 87 09/13/18 08:25 107/60 09/13/18 08:00 98.1 77 20 107/60 (76) 94 09/13/18 08:00 Room Air 09/13/18 07:46 78 09/13/18 04:00 70 09/13/18 04:00 Room Air 09/13/18 04:00 97.8 86 20 122/64 (83) 99 09/13/18 00:00 Room Air 09/13/18 00:00 85 09/13/18 00:00 97.9 85 20 100/71 (81) 100 I&O Intake and Output 09/12/18 09/13/18 19:00 07:00 Intake Total 1022 ml Output Total 900 ml 250 ml Balance 122 ml -250 ml Intake Oral 1022 ml Output Urine Total 900 ml 250 ml # Bowel Movements 5 Dressing: other Wound: other Drains: other Cardiovascular: RSR Respiratory: decreased breath sounds Abdomen: soft, present bowel sounds Extremities: other Laboratory Tests Test 09/13/18 06:00 09/13/18 06:20 White Blood Count 7.4 K/UL (4.8-10.8) Red Blood Count 3.81 M/UL (4.70-6.10) L Hemoglobin 12.9 G/DL (14.2-18.0) L Hematocrit 41.2 % (42.0-52.0) L Mean Corpuscular Volume 108 FL (80-99) H Mean Corpuscular Hemoglobin 33.8 PG (27.0-31.0) H Mean Corpuscular Hemoglobin Concent 31.3 G/DL (32.0-36.0) L Red Cell Distribution Width 16.3 % (11.6-14.8) H Platelet Count 127 K/UL (150-450) L Mean Platelet Volume 9.2 FL (6.5-10.1) Neutrophils (%) (Auto) 67.5 % (45.0-75.0) Lymphocytes (%) (Auto) 19.0 % (20.0-45.0) L Monocytes (%) (Auto) 12.1 % (1.0-10.0) H Eosinophils (%) (Auto) 0.4 % (0.0-3.0) Basophils (%) (Auto) 1.0 % (0.0-2.0) Prothrombin Time 13.2 SEC (9.30-11.50) H Prothromb Time International Ratio 1.3 (0.9-1.1) H Activated Partial Thromboplast Time 41 SEC (23-33) H Sodium Level 144 MMOL/L (136-145) Potassium Level 3.9 MMOL/L (3.5-5.1) Chloride Level 111 MMOL/L (98-107) H Carbon Dioxide Level 24 MMOL/L (21-32) Anion Gap 9 mmol/L (5-15) Blood Urea Nitrogen 21 mg/dL (7-18) H Creatinine 1.2 MG/DL (0.55-1.30) Estimat Glomerular Filtration Rate mL/min (>60) Glucose Level 98 MG/DL (74-106) Calcium Level 8.5 MG/DL (8.5-10.1) Total Bilirubin 2.0 MG/DL (0.2-1.0) H Direct Bilirubin 0.9 MG/DL (0.0-0.3) H Aspartate Amino Transf (AST/SGOT) 20 U/L (15-37) Alanine Aminotransferase (ALT/SGPT) < 6 U/L (12-78) L Alkaline Phosphatase 53 U/L (46-116) Total Protein 6.2 G/DL (6.4-8.2) L Albumin 2.3 G/DL (3.4-5.0) L Globulin 3.9 g/dL Albumin/Globulin Ratio 0.6 (1.0-2.7) L Lipase 102 U/L (73-393) Plan Problems: (1) Decubitus skin ulcer Assessment & Plan: Pt presented on admission with multiple pressure injuries. Open DTPI noted to Sacrum .Base of wound indurated ,purple with two open areas .Wound in its entirety measures (L)9cm x (W)8.5cm. Proximal wound within base of DTPI measures (L)2cm x (W03cm .Base of wound regina with 10% slough.Inferior but in close proximity second wound within DTPI measures (L)0.8cm x (W) 0.6cm.Base of wound regina. Resolving pressure injury noted to L ischium .Base of wound pale with dry borders. DTPI noted to L trochanter .Base of wound indurated, purple with scattered striations that are maroon in colourwiti=hin base of wound.(L)12cm x (W) 7cm.Site tender when minimally palpated. L heel maroon in colour with fluctuance. Tender when minimally palpated (L) 6.5cm x (W)6cm. R heel maroon in colour with fluctuance. Tender when minimally palpated.(L) 5.5cm x (W)7cm. Darker skin tone noted to lateral/posterior R tibia. Non-blanching erythema with fluctuance noted to tips of R and L 1st metatarsals. Spouse at bedside and all skin findings addressed with spouse .Spouse has been educated of risks for further skin decline, including possibility of DTPIs becoming open wounds.Spouse has been informed of interventions being implemented to minimize risks for further skin breakdown. Albumin low. nutritional optimization Tx.Plan: Cleanse Sacral wound with Saline. Apply Therahoney to open wounds.Apply Triad Paste periwound .Cover with Optifoam drsg. Change Daily and prn. Apply Cavilon Skin Barrier to Both heels. Cover each heel with Optifoam drsg. Change every 7 days and prn. Apply Cavilon Skin Barrier to both heels. Cover each heel with Optifoam drsg. Change every 7 days and prn. APM/TRACIE mattress overlay. Reposition at least every 2hours or as tolerated. Off-load heels with pillow. (2) Abnormal LFTs Assessment & Plan: Patient identified to have a elevated total bilirubin with a elevated direct bilirubin component. AST ALT alk phos are okay otherwise. Abdominal ultrasound identified and demonstrated cholelithiasis. Etiology of elevated liver enzymes currently unknown Potential medication reaction versus component of cholelithiasis Will order repeat labs for tomorrow morning and trend No acute surgical intervention at this time Roberto Grimm Sep 13, 2018 21:58
[2018-09-14] VITALS: BP 106/70
--- NOTE | 2018-09-14 03:28 | NUR ---
HAND-OFF: Report given to ANGIE Luo. patient is in stable condition.
--- NOTE | 2018-09-14 03:29 | NUR ---
NURSE NOTES: Pt report received from Leslie ADAMS. pt apprears to be resting in bed, no signs symptoms of distress at the moment, however, pt does present lethargic with. pt is alert and oriented times 1 and responds to being called. pt pupiles are round and reactive to light and accommodating bilaterally. pt is on a media monitor showing AFIB at this moment, MD is aware and is reported controled AFIB. no other signs symptoms of cardiac compromise at the moment. pt is on 2L NC able to sat at 100%, no other signs symptoms of other resp compromise noted. pt bed is locked and low, bed armed, bed rails up times 3. call light is within reach. will continue plan of care. Family member is at bed side.
[2018-09-14 04:00] VITALS: BP 87/59
[2018-09-14 06:03] LABS: BASOPHILS % (AUTO) 0.9 % (0.0-2.0); EOSINOPHILS % (AUTO) 0.6 % (0.0-3.0); HEMATOCRIT 40.7 % (42.0-52.0); HEMOGLOBIN 12.7 G/DL (14.2-18.0); LYMPHOCYTES % (AUTO) 19.6 % (20.0-45.0); MEAN CORPUSCULAR VOLUME 108 FL (80-99); MONOCYTES % (AUTO) 11.4 % (1.0-10.0); NEUTROPHILS % (AUTO) 67.5 % (45.0-75.0); PLATELET COUNT 164 K/UL (150-450); RED BLOOD COUNT 3.76 M/UL (4.70-6.10); RED CELL DISTRIBUTION WIDTH 16.2 % (11.6-14.8); WHITE BLOOD COUNT 8.4 K/UL (4.8-10.8)
[2018-09-14 06:10] LABS: INR 1.2 (0.9-1.1)
--- NOTE | 2018-09-14 07:06 | NUR ---
HAND-OFF: Report given to Nidhi ADAMS SACHA.
[2018-09-14 07:13] LABS: ANION GAP 9 mmol/L (5-15); BLOOD UREA NITROGEN 20 mg/dL (7-18); CALCIUM 8.8 MG/DL (8.5-10.1); CARBON DIOXIDE 23 MMOL/L (21-32); CHLORIDE 111 MMOL/L (98-107); CREATININE 1.1 MG/DL (0.55-1.30); POTASSIUM 3.9 MMOL/L (3.5-5.1); SODIUM 143 MMOL/L (136-145)
--- NOTE | 2018-09-14 07:31 | NUR ---
NURSE NOTES: received patient report from abbey conner. patient is on bed asleep. with family member. not in acute distress. on 2 LI NC. afib on the monitor. will follow plan of care.
[2018-09-14 08:00] VITALS: BP 113/68
[2018-09-14] MEDS: Furosemide 40mg tab ORAL SCH (08:41)
[2018-09-14] MEDS: Losartan 25mg tab ORAL SCH (08:41)
[2018-09-14] MEDS: Spironolactone 25mg tab ORAL SCH (08:41)
[2018-09-14] MEDS: Vitamin A&D Oint 2oz Tube TOPIC SCH ×2 (08:44→21:16)
[2018-09-14] MEDS: Enoxaparin Sodium 300mg/3ml vial SUBQ SCH ×2 (09:22→21:20)
--- NOTE | 2018-09-14 10:00 | NUR ---
RD ASSESSMENT & RECOMMENDATIONS SEE CARE ACTIVITY FOR COMPLETE ASSESSMENT DAILY ESTIMATED NEEDS: Needs based on Wounds 54.5kg 30-35 kcals/kg [id number] total kcals 1.25-2 g protein/kg 68-109 g total protein Fluid per MD, on lasix NUTRITION DIAGNOSIS: Increased kcal and pro needs r/t wound healing as evidenced by pt w/ multiple wounds, including L trochanter and sacral DTPI, L ischium resolving pressure injury, refer to WC eval for complete evaluation. CURRENT DIET: Regular ms ground-> POOR PO INTAKE PO DIET RECOMMENDATIONS: Regular/ liberalized diet (texture per FUSING LINE INSPECTOR) ENTERAL NUTRITION RECOMMENDATIONS-->> Osmolite 1.5 @50ml/hr x24 hrs to provide 1200ml, 1800 kcal, 75g pro, 914ml free H2O -> With continued poor po intake, rec NON ORAL FEEDS IF PART OF POC to better meet est needs to promote wt gain and wound healing - Obtain GI access, initiate Osmolite 1.5 @20ml/hr for 6 hrs. Advance as tolerated 10ml/hr q4-6 hrs to goal - Flush per MD. HOB Over 30 degrees ---- ADDITIONAL RECOMMENDATIONS: 1) FUSING LINE INSPECTOR eval for appropriate texture 2) Wound care: add ANDRE BID Add VIT C 250mg daily Add MVI w/ min daily 3) Add Ensure TID w/ all meals 4) Obtain an accurate updated weight- pt adm w/ poor po + wt loss 5) *TF RECS ABOVE IF PART OF POC TO MEET EST NEEDS*
--- NOTE | 2018-09-14 11:30 | Cardiac Electrophysiology PN ---
Assessment/Plan Assessment/Plan 1. Atrial flutter with rapid ventricular response 140s, better on Coreg 3.125 mg b.i.d. and Lovenox and Coumadin. Had atrial flutter in December 2017 and would benefit from atrial flutter ablation when stabilized.In 70s now 2. Severe cardiomyopathy with EF 15%. Cardiac catheterization by me in December 2017. On Cozaar 25 mg daily, Lasix 40 mg daily, Aldactone 25 mg daily, and Coreg 3.125 mg b.i.d. ( Hold for SBP<100) 3. 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 History of DVT, on Eliquis. 5. History of hypertension. 6. 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 No CP or SOB. EF 15%. Remained in flutter. On Coumadin and Lovenox for LV clot. at bedside Objective Last 24 Hour Vital Signs Date Time Temp Pulse Resp B/P (MAP) Pulse Ox O2 Delivery O2 Flow Rate FiO2 09/14/18 08:00 98.4 88 21 113/68 (83) 100 09/14/18 08:00 78 09/14/18 04:00 98.3 88 22 87/59 (68) 100 09/14/18 03:36 69 09/14/18 00:00 77 09/14/18 00:00 98.1 91 24 106/70 (82) 100 09/13/18 20:41 86 106/67 09/13/18 20:00 102 09/13/18 20:00 97.7 102 24 110/65 (80) 100 09/13/18 20:00 Room Air 09/13/18 17:23 83 09/13/18 16:00 97.7 104 24 92/62 (72) 100 09/13/18 12:00 98.2 87 26 89/71 (77) 100 09/13/18 11:45 87 Intake and Output 09/13/18 09/14/18 18:59 06:59 Intake Total 550 ml Output Total 550 ml 100 ml Balance 0 ml -100 ml Intake Oral 300 ml IV Total 250 ml Output Urine Total 550 ml 100 ml Laboratory Tests Test 09/14/18 04:50 White Blood Count 8.4 K/UL (4.8-10.8) Red Blood Count 3.76 M/UL (4.70-6.10) L Hemoglobin 12.7 G/DL (14.2-18.0) L Hematocrit 40.7 % (42.0-52.0) L Mean Corpuscular Volume 108 FL (80-99) H Mean Corpuscular Hemoglobin 33.8 PG (27.0-31.0) H Mean Corpuscular Hemoglobin Concent 31.2 G/DL (32.0-36.0) L Red Cell Distribution Width 16.2 % (11.6-14.8) H Platelet Count 164 K/UL (150-450) Mean Platelet Volume 9.3 FL (6.5-10.1) Neutrophils (%) (Auto) 67.5 % (45.0-75.0) Lymphocytes (%) (Auto) 19.6 % (20.0-45.0) L Monocytes (%) (Auto) 11.4 % (1.0-10.0) H Eosinophils (%) (Auto) 0.6 % (0.0-3.0) Basophils (%) (Auto) 0.9 % (0.0-2.0) Prothrombin Time 12.7 SEC (9.30-11.50) H Prothromb Time International Ratio 1.2 (0.9-1.1) H Sodium Level 143 MMOL/L (136-145) Potassium Level 3.9 MMOL/L (3.5-5.1) Chloride Level 111 MMOL/L (98-107) H Carbon Dioxide Level 23 MMOL/L (21-32) Anion Gap 9 mmol/L (5-15) Blood Urea Nitrogen 20 mg/dL (7-18) H Creatinine 1.1 MG/DL (0.55-1.30) Estimat Glomerular Filtration Rate mL/min (>60) Glucose Level 95 MG/DL (74-106) Calcium Level 8.8 MG/DL (8.5-10.1) Objective HEAD AND NECK: Mild JVD. LUNGS: Coarse rhonchi. CARDIOVASCULAR: Irregular. S1 and S2 with no gallop or murmur. ABDOMEN: Soft. EXTREMITIES: No pitting edema. Antonio Conde MD Sep 14, 2018 11:30
[2018-09-14 11:53] VITALS: BP 125/74
--- NOTE | 2018-09-14 11:59 | Infectious Diseases Prog Note ---
Assessment/Plan Assessment/Plan IMPRESSION: 1. Positive blood culture with staph Simulans likely contamination 2. Cholelithiasis 3. Atrial flutter. 4. Thrombocytopenia. 5. Congestive heart failure. 6. Aortic stenosis. 7. Mitral regurgitation. 8. Acute renal failure. 9. 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 Subjective ROS Limited/Unobtainable: No Constitutional: Reports: no symptoms Respiratory: Reports: no symptoms Cardiovascular: Reports: no symptoms Gastrointestinal/Abdominal: Reports: no symptoms Allergies: Coded Allergies: No Known Allergies (Unverified , 01/07/18) Objective Vital Signs Last 24 Hour Vital Signs Date Time Temp Pulse Resp B/P (MAP) Pulse Ox O2 Delivery O2 Flow Rate FiO2 09/14/18 11:53 97.9 66 21 125/74 (91) 100 09/14/18 08:00 98.4 88 21 113/68 (83) 100 09/14/18 08:00 78 09/14/18 04:00 98.3 88 22 87/59 (68) 100 09/14/18 03:36 69 09/14/18 00:00 77 09/14/18 00:00 98.1 91 24 106/70 (82) 100 09/13/18 20:41 86 106/67 09/13/18 20:00 102 09/13/18 20:00 97.7 102 24 110/65 (80) 100 09/13/18 20:00 Room Air 09/13/18 17:23 83 09/13/18 16:00 97.7 104 24 92/62 (72) 100 09/13/18 12:00 98.2 87 26 89/71 (77) 100 Height (Feet): 5 Height (Inches): 11.00 Weight (Pounds): 115 General Appearance: no acute distress HEENT: mucous membranes moist Respiratory/Chest: lungs clear Cardiovascular: normal rate Abdomen: soft, non tender Extremities: other - mild edema of left hand Neurologic/Psychiatric: alert, responsive Laboratory Tests Test 09/14/18 04:50 White Blood Count 8.4 K/UL (4.8-10.8) Red Blood Count 3.76 M/UL (4.70-6.10) L Hemoglobin 12.7 G/DL (14.2-18.0) L Hematocrit 40.7 % (42.0-52.0) L Mean Corpuscular Volume 108 FL (80-99) H Mean Corpuscular Hemoglobin 33.8 PG (27.0-31.0) H Mean Corpuscular Hemoglobin Concent 31.2 G/DL (32.0-36.0) L Red Cell Distribution Width 16.2 % (11.6-14.8) H Platelet Count 164 K/UL (150-450) Mean Platelet Volume 9.3 FL (6.5-10.1) Neutrophils (%) (Auto) 67.5 % (45.0-75.0) Lymphocytes (%) (Auto) 19.6 % (20.0-45.0) L Monocytes (%) (Auto) 11.4 % (1.0-10.0) H Eosinophils (%) (Auto) 0.6 % (0.0-3.0) Basophils (%) (Auto) 0.9 % (0.0-2.0) Prothrombin Time 12.7 SEC (9.30-11.50) H Prothromb Time International Ratio 1.2 (0.9-1.1) H Sodium Level 143 MMOL/L (136-145) Potassium Level 3.9 MMOL/L (3.5-5.1) Chloride Level 111 MMOL/L (98-107) H Carbon Dioxide Level 23 MMOL/L (21-32) Anion Gap 9 mmol/L (5-15) Blood Urea Nitrogen 20 mg/dL (7-18) H Creatinine 1.1 MG/DL (0.55-1.30) Estimat Glomerular Filtration Rate mL/min (>60) Glucose Level 95 MG/DL (74-106) Calcium Level 8.8 MG/DL (8.5-10.1) Current Medications Medications (Trade) Dose Ordered Sig/Fritz Route PRN Reason Start Time Stop Time Status Last Admin Dose Admin Acetaminophen (Tylenol) 650 mg Q6H PRN ORAL Mild Pain/Temp > 100.5 09/11/18 19:45 10/11/18 19:44 Carvedilol (Coreg) 3.125 mg EVERY 12 HOURS ORAL 09/11/18 21:00 10/09/18 20:59 09/13/18 20:41 Enoxaparin Sodium (Lovenox) 50 mg Q12HR SUBQ 09/11/18 21:00 10/11/18 20:59 09/14/18 09:22 Famotidine (Pepcid) 20 mg DAILY ORAL 09/10/18 09:00 10/10/18 08:59 09/14/18 08:41 Furosemide (Lasix) 40 mg DAILY ORAL 09/10/18 09:00 10/10/18 08:59 09/14/18 08:41 Losartan Potassium (Cozaar) 25 mg DAILY ORAL 09/12/18 09:00 10/10/18 08:59 Olanzapine (ZyPREXA) 2.5 mg BEDTIME ORAL 09/11/18 21:00 10/11/18 20:59 09/12/18 21:02 Spironolactone (Aldactone) 25 mg DAILY ORAL 09/14/18 09:00 10/10/18 08:59 Vitamin A/Vitamin D (A & D Oint) 1 applic EVERY 12 HOURS TOPIC 09/09/18 21:00 10/09/18 20:59 09/14/18 08:44 Warfarin Sodium (Coumadin per pharmacy) 1 ea DAILY PRN MISC Per rx protocol 09/11/18 14:30 10/11/18 14:29 Warfarin Sodium (Coumadin) 6 mg COUMADIN ORAL 09/14/18 17:00 09/14/18 18:00 Alexis Rivera MD Sep 14, 2018 11:59
--- NOTE | 2018-09-14 12:59 | Surgery Progress Note ---
Surgery Progress Note Subjective Additional Comments No acute events. Labs stable. Exam unchanged. A.m. labs ordered. Objective Last 24 Hour Vital Signs Date Time Temp Pulse Resp B/P (MAP) Pulse Ox O2 Delivery O2 Flow Rate FiO2 09/14/18 11:53 97.9 66 21 125/74 (91) 100 09/14/18 08:00 98.4 88 21 113/68 (83) 100 09/14/18 08:00 78 09/14/18 04:00 98.3 88 22 87/59 (68) 100 09/14/18 03:36 69 09/14/18 00:00 77 09/14/18 00:00 98.1 91 24 106/70 (82) 100 09/13/18 20:41 86 106/67 09/13/18 20:00 102 09/13/18 20:00 97.7 102 24 110/65 (80) 100 09/13/18 20:00 Room Air 09/13/18 17:23 83 09/13/18 16:00 97.7 104 24 92/62 (72) 100 I&O Intake and Output 09/13/18 09/14/18 18:59 06:59 Intake Total 550 ml Output Total 550 ml 100 ml Balance 0 ml -100 ml Intake Oral 300 ml IV Total 250 ml Output Urine Total 550 ml 100 ml Dressing: saturated Wound: other Cardiovascular: RSR Respiratory: clear Abdomen: soft, present bowel sounds, non-distended Extremities: no cyanosis, other Laboratory Tests Test 09/14/18 04:50 White Blood Count 8.4 K/UL (4.8-10.8) Red Blood Count 3.76 M/UL (4.70-6.10) L Hemoglobin 12.7 G/DL (14.2-18.0) L Hematocrit 40.7 % (42.0-52.0) L Mean Corpuscular Volume 108 FL (80-99) H Mean Corpuscular Hemoglobin 33.8 PG (27.0-31.0) H Mean Corpuscular Hemoglobin Concent 31.2 G/DL (32.0-36.0) L Red Cell Distribution Width 16.2 % (11.6-14.8) H Platelet Count 164 K/UL (150-450) Mean Platelet Volume 9.3 FL (6.5-10.1) Neutrophils (%) (Auto) 67.5 % (45.0-75.0) Lymphocytes (%) (Auto) 19.6 % (20.0-45.0) L Monocytes (%) (Auto) 11.4 % (1.0-10.0) H Eosinophils (%) (Auto) 0.6 % (0.0-3.0) Basophils (%) (Auto) 0.9 % (0.0-2.0) Prothrombin Time 12.7 SEC (9.30-11.50) H Prothromb Time International Ratio 1.2 (0.9-1.1) H Sodium Level 143 MMOL/L (136-145) Potassium Level 3.9 MMOL/L (3.5-5.1) Chloride Level 111 MMOL/L (98-107) H Carbon Dioxide Level 23 MMOL/L (21-32) Anion Gap 9 mmol/L (5-15) Blood Urea Nitrogen 20 mg/dL (7-18) H Creatinine 1.1 MG/DL (0.55-1.30) Estimat Glomerular Filtration Rate mL/min (>60) Glucose Level 95 MG/DL (74-106) Calcium Level 8.8 MG/DL (8.5-10.1) Plan Problems: (1) Decubitus skin ulcer Assessment & Plan: Pt presented on admission with multiple pressure injuries. Open DTPI noted to Sacrum .Base of wound indurated ,purple with two open areas .Wound in its entirety measures (L)9cm x (W)8.5cm. Proximal wound within base of DTPI measures (L)2cm x (W03cm .Base of wound regina with 10% slough.Inferior but in close proximity second wound within DTPI measures (L)0.8cm x (W) 0.6cm.Base of wound regina. Resolving pressure injury noted to L ischium .Base of wound pale with dry borders. DTPI noted to L trochanter .Base of wound indurated, purple with scattered striations that are maroon in colourwiti=hin base of wound.(L)12cm x (W) 7cm.Site tender when minimally palpated. L heel maroon in colour with fluctuance. Tender when minimally palpated (L) 6.5cm x (W)6cm. R heel maroon in colour with fluctuance. Tender when minimally palpated.(L) 5.5cm x (W)7cm. Darker skin tone noted to lateral/posterior R tibia. Non-blanching erythema with fluctuance noted to tips of R and L 1st metatarsals. Spouse at bedside and all skin findings addressed with spouse .Spouse has been educated of risks for further skin decline, including possibility of DTPIs becoming open wounds.Spouse has been informed of interventions being implemented to minimize risks for further skin breakdown. Albumin low. nutritional optimization Tx.Plan: Cleanse Sacral wound with Saline. Apply Therahoney to open wounds.Apply Triad Paste periwound .Cover with Optifoam drsg. Change Daily and prn. Apply Cavilon Skin Barrier to Both heels. Cover each heel with Optifoam drsg. Change every 7 days and prn. Apply Cavilon Skin Barrier to both heels. Cover each heel with Optifoam drsg. Change every 7 days and prn. APM/TRACIE mattress overlay. Reposition at least every 2hours or as tolerated. Off-load heels with pillow. (2) Abnormal LFTs Assessment & Plan: Patient identified to have a elevated total bilirubin with a elevated direct bilirubin component. AST ALT alk phos are okay otherwise. Abdominal ultrasound identified and demonstrated cholelithiasis. Etiology of elevated liver enzymes currently unknown Potential medication reaction versus component of cholelithiasis Will order repeat labs for tomorrow morning and trend No acute surgical intervention at this time Roberto Grimm Sep 14, 2018 12:59
[2018-09-14 16:00] VITALS: BP 98/63
[2018-09-14] MEDS ORDERED: Warfarin Sodium 3mg ORAL SCH (17:00)
--- NOTE | 2018-09-14 19:30 | NUR ---
HAND-OFF: Report given to tony conner.
--- NOTE | 2018-09-14 19:31 | NUR ---
NURSE NOTES: Received patient from ANGIE Terrell. patient is observed sleeping in bed, arousable to name, no s/sx of pain noted at this time. patient is on room air, no s/sx of respiratory distress noted at this time. condom catheter is patent and intact, draining well. IV sites are patent and intact, asymptomatic. is at bedside. bed in lowest position and locked, siderails up X3, call light within reach. will continue to monitor.
[2018-09-14 20:00] VITALS: BP 110/77
--- NOTE | 2018-09-14 20:13 | General Progress Note ---
Assessment/Plan Assessment/Plan: Assessment and Recs: # Thrombocytopenia - most likely related to PNA infection. Hep panel and HIV are both negative --> US abd shows bialteral pleural effusions --> Peripheral smear ordered to evaluate for blasts /schistocytes does not show any --> abx and other meds have been reviewed --> ok for ppx if plt >50k w/ with lovenox --> trend plt 111-->106k-->127k-->164k # Acute right leg DVT hx, before was on eliquis --> cards aware from prior admission --> now with Mobile LV Clot On Eliquis. Is ok to change to Lovenox and Coumadin # Anemia of chronic disease due to underlying chronic medical issues, multifactorial. --> Anemia w/u has been reviewed. Ferritin at 450. --> WIll trend CBC as needed. --> hgb goal >7. Transfuse prn. --> No evidence of hemolysis noted # Courtney --> as per renal 1.4-->1.2 # PNA/right hilar mass. CXR has been reviewed. --> May need abx --> pulm eval prn # Myocardial infarction. --> Cardiac cath [address] Conde # Atrial flutter with rapid ventricular response. --> per cards # Psych disorder -- per psych recs Greatly appreciate consultation! Subjective Constitutional: Denies: no symptoms, chills, diaphoresis, fever, malaise, weakness, other HEENT: Denies: no symptoms, eye pain, blurred vision, tearing, double vision, ear pain, ear discharge, nose pain, nose congestion, throat pain, throat swelling, mouth pain, mouth swelling, other Cardiovascular: Denies: no symptoms, chest pain, edema, irregular heart rate, lightheadedness, palpitations, syncope, other Respiratory: Denies: no symptoms, cough, orthopnea, shortness of breath, SOB with excertion, SOB at rest, sputum, stridor, wheezing, other Gastrointestinal/Abdominal: Denies: no symptoms, abdomen distended, abdominal pain, black stools, tarry stools, blood in stool, constipated, diarrhea, difficulty swallowing, nausea, poor appetite, poor fluid intake, rectal bleeding , vomiting, other Neurologic/Psychiatric: Denies: no symptoms, anxiety, depressed, emotional problems, headache, numbness, paresthesia, pre-existing deficit, seizure, tingling, tremors, weakness, other Endocrine: Denies: no symptoms, excessive sweating, flushing, intolerance to cold, intolerance to heat, increased hunger, increased thirst, increased urine, unexplained weight gain, unexplained weight loss, other Allergies: Coded Allergies: No Known Allergies (Unverified , 01/07/18) Subjective 09/11: no fevers noted, no chills, bp is low, remains on eliquis and seen by cards 09/12: no bleeding, no chills, no night sweats, is on lovenox and coumadin, inr goal 2-3 09/13: no events, inr higher, no f/c, no bleeding 09/14: labs have been reviewed, improved, arousable in am, by bedside Objective Last 24 Hour Vital Signs Date Time Temp Pulse Resp B/P (MAP) Pulse Ox O2 Delivery O2 Flow Rate FiO2 09/14/18 16:00 98.4 81 24 98/63 (75) 100 09/14/18 16:00 74 09/14/18 12:00 73 09/14/18 11:53 97.9 66 21 125/74 (91) 100 09/14/18 08:00 98.4 88 21 113/68 (83) 100 09/14/18 08:00 78 09/14/18 04:00 98.3 88 22 87/59 (68) 100 09/14/18 03:36 69 09/14/18 00:00 77 09/14/18 00:00 98.1 91 24 106/70 (82) 100 09/13/18 20:41 86 106/67 Intake and Output 09/13/18 09/14/18 19:00 07:00 Intake Total 550 ml Output Total 550 ml 100 ml Balance 0 ml -100 ml Intake Oral 300 ml IV Total 250 ml Output Urine Total 550 ml 100 ml Laboratory Tests 09/14/18 04:50: White Blood Count 8.4, Red Blood Count 3.76L, Hemoglobin 12.7L, Hematocrit 40.7L , Mean Corpuscular Volume 108H, Mean Corpuscular Hemoglobin 33.8H, Mean Corpuscular Hemoglobin Concent 31.2L, Red Cell Distribution Width 16.2H, Platelet Count 164, Mean Platelet Volume 9.3, Neutrophils (%) (Auto) 67.5, Lymphocytes (%) (Auto) 19.6L, Monocytes (%) (Auto) 11.4H, Eosinophils (%) (Auto ) 0.6, Basophils (%) (Auto) 0.9, Prothrombin Time 12.7H, Prothromb Time International Ratio 1.2H, Sodium Level 143, Potassium Level 3.9, Chloride Level 111H, Carbon Dioxide Level 23, Anion Gap 9, Blood Urea Nitrogen 20H, Creatinine 1.1, Estimat Glomerular Filtration Rate , Glucose Level 95, Calcium Level 8.8 Height (Feet): 5 Height (Inches): 11.00 Weight (Pounds): 115 Objective Gen: normal inspection, alert, thin, Chronically Ill Head: atraumatic, normal ENT inspection, normal voice Neck: normal inspection, supple, no bony tend, limited range of motion Respiratory: normal inspection, lungs clear, normal breath sounds Cv: rrr, no edema Gi: normal inspection, normal bowel sounds, non tender Gu: no CVA tenderness Msk: normal inspection, back normal Neurologic: normal inspection, alert, responsive, speech normal Psychiatric: normal inspection, judgement/insight normal Bruce Loya MD Sep 14, 2018 20:13
[2018-09-14] MEDS: OLANZapine 2.5mg tab ORAL SCH (21:15)
[2018-09-15] VITALS: BP 102/58
--- NOTE | 2018-09-15 01:15 | Progress Note ---
DATE: 09/14/2018 SUBJECTIVE: The patient is still in step down unit, in bed, in no acute distress. No agitation was noted today. MENTAL STATUS EXAMINATION: The patient is asleep, arousable, and oriented to self. Mood is neutral to anxious. Affect is flat. Thought process, there is a paucity of thought content. Thought content, no suicidal or homicidal ideation. ASSESSMENT: Stable encephalopathy. PLAN: 1. We will continue with current medications. 2. Provide the patient with reality orientation and supportive therapy. Rozina Angela M.D. DR: JADE JOB#: [id number] CC:
[2018-09-15 04:00] VITALS: BP 107/67
--- NOTE | 2018-09-15 07:19 | NUR ---
NURSE NOTES: received patient report from tony conner.patient is on bed asleep with family member. not in acute distress. comfortable. on RA. sating ok. saline locked. will follow plan of care.
--- NOTE | 2018-09-15 07:20 | NUR ---
HAND-OFF: Report given to ANGIE Terrell. patient is in stable condition.
[2018-09-15 08:00] VITALS: BP 91/53
[2018-09-15] MEDS: Furosemide 40mg tab ORAL SCH (08:18)
[2018-09-15] MEDS: Spironolactone 25mg tab ORAL SCH (08:18)
[2018-09-15] MEDS: Losartan 25mg tab ORAL SCH (08:18)
[2018-09-15] MEDS: Vitamin A&D Oint 2oz Tube TOPIC SCH ×2 (08:18→21:03)
[2018-09-15] MEDS: Enoxaparin Sodium 300mg/3ml vial SUBQ SCH ×2 (08:25→21:05)
--- NOTE | 2018-09-15 08:53 | General Progress Note ---
Assessment/Plan Assessment/Plan: Assessment and Recs: # Thrombocytopenia - most likely related to PNA infection. Hep panel and HIV are both negative --> US abd shows bialteral pleural effusions --> Peripheral smear ordered to evaluate for blasts /schistocytes does not show any --> abx and other meds have been reviewed --> ok for ppx if plt >50k w/ with lovenox --> trend plt 111-->106k-->127k-->164k # Acute right leg DVT hx, before was on eliquis --> cards aware from prior admission --> now with Mobile LV Clot On Eliquis. Is ok to change to Lovenox and Coumadin # Anemia of chronic disease due to underlying chronic medical issues, multifactorial. --> Anemia w/u has been reviewed. Ferritin at 450. --> WIll trend CBC as needed. --> hgb goal >7. Transfuse prn. --> No evidence of hemolysis noted # Courtney --> as per renal 1.4-->1.2-->1.1 # PNA/right hilar mass. CXR has been reviewed. --> May need abx --> pulm eval prn # Myocardial infarction. --> Cardiac cath [address] Conde # Atrial flutter with rapid ventricular response. --> per cards # Psych disorder -- as per psych recs Greatly appreciate consultation! Subjective HEENT: Denies: no symptoms, eye pain, blurred vision, tearing, double vision, ear pain, ear discharge, nose pain, nose congestion, throat pain, throat swelling, mouth pain, mouth swelling, other Cardiovascular: Denies: no symptoms, chest pain, edema, irregular heart rate, lightheadedness, palpitations, syncope, other Respiratory: Denies: no symptoms, cough, orthopnea, shortness of breath, SOB with excertion, SOB at rest, sputum, stridor, wheezing, other Gastrointestinal/Abdominal: Denies: no symptoms, abdomen distended, abdominal pain, black stools, tarry stools, blood in stool, constipated, diarrhea, difficulty swallowing, nausea, poor appetite, poor fluid intake, rectal bleeding , vomiting, other Genitourinary: Denies: no symptoms, burning, discharge, frequency, flank pain, hematuria, incontinence, pain, urgency, other Neurologic/Psychiatric: Denies: no symptoms, anxiety, depressed, emotional problems, headache, numbness, paresthesia, pre-existing deficit, seizure, tingling, tremors, weakness, other Endocrine: Denies: no symptoms, excessive sweating, flushing, intolerance to cold, intolerance to heat, increased hunger, increased thirst, increased urine, unexplained weight gain, unexplained weight loss, other Hematologic/Lymphatic: Denies: no symptoms, anemia, easy bleeding, easy bruising, other Allergies: Coded Allergies: No Known Allergies (Unverified , 01/07/18) Subjective 09/11: no fevers noted, no chills, bp is low, remains on eliquis and seen by cards 09/12: no bleeding, no chills, no night sweats, is on lovenox and coumadin, inr goal 2-3 09/13: no events, inr higher, no f/c, no bleeding 09/14: labs have been reviewed, improved, arousable in am, by bedside 09/15: no events, no bleeding, comfortable, sleeping, labs reviewed Objective Last 24 Hour Vital Signs Date Time Temp Pulse Resp B/P (MAP) Pulse Ox O2 Delivery O2 Flow Rate FiO2 09/15/18 08:18 91/53 09/15/18 08:18 79 91/53 09/15/18 08:00 97.9 79 23 91/53 (66) 98 09/15/18 04:00 Room Air 09/15/18 04:00 97.9 79 22 107/67 (80) 95 09/15/18 03:34 80 09/15/18 00:00 Room Air 09/15/18 00:00 97.9 78 24 102/58 (73) 96 09/15/18 00:00 76 09/14/18 21:16 77 110/76 09/14/18 20:00 Room Air 09/14/18 20:00 98.1 87 24 110/77 (88) 99 09/14/18 19:00 84 09/14/18 16:00 98.4 81 24 98/63 (75) 100 09/14/18 16:00 74 09/14/18 12:00 73 09/14/18 11:53 97.9 66 21 125/74 (91) 100 Intake and Output 09/14/18 09/15/18 19:00 07:00 Intake Total 200 ml Output Total 350 ml 125 ml Balance -150 ml -125 ml Intake Oral 200 ml Output Urine Total 350 ml 125 ml Height (Feet): 5 Height (Inches): 11.00 Weight (Pounds): 133 Objective Gen: normal inspection, alert, thin, Chronically Ill Head: atraumatic, normal ENT inspection, normal voice Neck: normal inspection, supple, no bony tend, limited range of motion Respiratory: normal inspection, lungs clear, normal breath sounds Cv: rrr, no edema Gi: normal inspection, normal bowel sounds, non tender Gu: no CVA tenderness Msk: normal inspection, back normal Neurologic: normal inspection, alert, responsive, speech normal Psychiatric: normal inspection, judgement/insight normal Bruce Loya MD Sep 15, 2018 08:53
--- NOTE | 2018-09-15 09:00 | NUR ---
PT EVALUATION NOTE Patient seen for initial evaluation, see complete evaluation for details. Patient presents with generalized weakness, decreased safety awareness and impaired balance. Patient required mod/max assist for bed mobility tasks and patient unable to sit at EOB without assistance. Transfers deferred due to weakness and poor sitting balance. Patient has been ambulating limited distances prior to hospitalization per patient's . Patient will benefit from skilled inpatient PT intervention to address strength, balance, safety awareness and functional mobility. Recommend discharge to SNF for further rehab to increase strength, balance, safety awareness and mobility once medically cleared by MD. DME needs to be determined based on patient's progress. Addendum: 09/15/18 at 1243 by ABIODUN WOOTEN PT Amended: Links added.
[2018-09-15 10:17] LABS: ALANINE AMINOTRANSFERASE < 6 U/L (12-78); ALBUMIN 2.2 G/DL (3.4-5.0); ALBUMIN/GLOBULIN RATIO 0.5 (1.0-2.7); ALKALINE PHOSPHATASE 55 U/L (46-116); ANION GAP 9 mmol/L (5-15); ASPARTATE AMINO TRANSFERASE 19 U/L (15-37); BILIRUBIN,TOTAL 1.8 MG/DL (0.2-1.0); BLOOD UREA NITROGEN 21 mg/dL (7-18); CALCIUM 8.9 MG/DL (8.5-10.1); CARBON DIOXIDE 24 MMOL/L (21-32); CHLORIDE 110 MMOL/L (98-107); CREATININE 1.1 MG/DL (0.55-1.30); POTASSIUM 4.3 MMOL/L (3.5-5.1); SODIUM 143 MMOL/L (136-145)
[2018-09-15 10:21] LABS: BILIRUBIN,DIRECT 0.7 MG/DL (0.0-0.3)
--- NOTE | 2018-09-15 11:17 | NUR ---
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 97.9 HR 79 RR 23 B/P 91/53 RA 98% BUN 21 IS: LOVENOX SUBC COZAAR PO ZYPREXA PO LASIX PO PT/OT EVAL TELE STATUS
[2018-09-15 11:51] LABS: EOSINOPHILS % (AUTO) 0.5 % (0.0-3.0); HEMATOCRIT 38.4 % (42.0-52.0); HEMOGLOBIN 12.1 G/DL (14.2-18.0); LYMPHOCYTES % (AUTO) 16.5 % (20.0-45.0); MEAN CORPUSCULAR VOLUME 107 FL (80-99); MONOCYTES % (AUTO) 9.7 % (1.0-10.0); NEUTROPHILS % (AUTO) 72.3 % (45.0-75.0); PLATELET COUNT 195 K/UL (150-450); RED CELL DISTRIBUTION WIDTH 15.6 % (11.6-14.8)
[2018-09-15 12:00] VITALS: BP 99/70
[2018-09-15 12:00] LABS: INR 1.2 (0.9-1.1)
--- NOTE | 2018-09-15 12:24 | Surgery Progress Note ---
Surgery Progress Note Subjective Additional Comments Patient seen and examined at bedside with family present. Care plan and current condition reviewed. Patient states he is felt well without any complaints. He is on air mattress and being turned frequently by the nursing staff. Dressings changed. Tolerating diet. No new complaints Objective Last 24 Hour Vital Signs Date Time Temp Pulse Resp B/P (MAP) Pulse Ox O2 Delivery O2 Flow Rate FiO2 09/15/18 08:18 91/53 09/15/18 08:18 79 91/53 09/15/18 08:00 97.9 79 23 91/53 (66) 98 09/15/18 08:00 74 09/15/18 04:00 Room Air 09/15/18 04:00 97.9 79 22 107/67 (80) 95 09/15/18 03:34 80 09/15/18 00:00 Room Air 09/15/18 00:00 97.9 78 24 102/58 (73) 96 09/15/18 00:00 76 09/14/18 21:16 77 110/76 09/14/18 20:00 Room Air 09/14/18 20:00 98.1 87 24 110/77 (88) 99 09/14/18 19:00 84 09/14/18 16:00 98.4 81 24 98/63 (75) 100 09/14/18 16:00 74 I&O Intake and Output 09/14/18 09/15/18 19:00 07:00 Intake Total 200 ml Output Total 350 ml 125 ml Balance -150 ml -125 ml Intake Oral 200 ml Output Urine Total 350 ml 125 ml Dressing: dry Wound: clean Cardiovascular: RSR Respiratory: clear Abdomen: soft, present bowel sounds, other, non-distended Extremities: no cyanosis Laboratory Tests Test 09/15/18 09:30 09/15/18 11:25 Sodium Level 143 MMOL/L (136-145) Potassium Level 4.3 MMOL/L (3.5-5.1) Chloride Level 110 MMOL/L (98-107) H Carbon Dioxide Level 24 MMOL/L (21-32) Anion Gap 9 mmol/L (5-15) Blood Urea Nitrogen 21 mg/dL (7-18) H Creatinine 1.1 MG/DL (0.55-1.30) Estimat Glomerular Filtration Rate mL/min (>60) Glucose Level 90 MG/DL (74-106) Calcium Level 8.9 MG/DL (8.5-10.1) Total Bilirubin 1.8 MG/DL (0.2-1.0) H Direct Bilirubin 0.7 MG/DL (0.0-0.3) H Aspartate Amino Transf (AST/SGOT) 19 U/L (15-37) Alanine Aminotransferase (ALT/SGPT) < 6 U/L (12-78) L Alkaline Phosphatase 55 U/L (46-116) Total Protein 6.5 G/DL (6.4-8.2) Albumin 2.2 G/DL (3.4-5.0) L Globulin 4.3 g/dL Albumin/Globulin Ratio 0.5 (1.0-2.7) L White Blood Count 8.0 K/UL (4.8-10.8) Red Blood Count 3.60 M/UL (4.70-6.10) L Hemoglobin 12.1 G/DL (14.2-18.0) L Hematocrit 38.4 % (42.0-52.0) L Mean Corpuscular Volume 107 FL (80-99) H Mean Corpuscular Hemoglobin 33.5 PG (27.0-31.0) H Mean Corpuscular Hemoglobin Concent 31.4 G/DL (32.0-36.0) L Red Cell Distribution Width 15.6 % (11.6-14.8) H Platelet Count 195 K/UL (150-450) Mean Platelet Volume 9.4 FL (6.5-10.1) Neutrophils (%) (Auto) 72.3 % (45.0-75.0) Lymphocytes (%) (Auto) 16.5 % (20.0-45.0) L Monocytes (%) (Auto) 9.7 % (1.0-10.0) Eosinophils (%) (Auto) 0.5 % (0.0-3.0) Basophils (%) (Auto) 1.0 % (0.0-2.0) Prothrombin Time 12.9 SEC (9.30-11.50) H Prothromb Time International Ratio 1.2 (0.9-1.1) H Activated Partial Thromboplast Time 46 SEC (23-33) H Folate 4.7 NG/ML (8.6-58.9) L Plan Problems: (1) Decubitus skin ulcer Assessment & Plan: Pt presented on admission with multiple pressure injuries. Open DTPI noted to Sacrum .Base of wound indurated ,purple with two open areas .Wound in its entirety measures (L)9cm x (W)8.5cm. Proximal wound within base of DTPI measures (L)2cm x (W03cm .Base of wound regina with 10% slough.Inferior but in close proximity second wound within DTPI measures (L)0.8cm x (W) 0.6cm.Base of wound regina. Resolving pressure injury noted to L ischium .Base of wound pale with dry borders. DTPI noted to L trochanter .Base of wound indurated, purple with scattered striations that are maroon in colourwiti=hin base of wound.(L)12cm x (W) 7cm.Site tender when minimally palpated. L heel maroon in colour with fluctuance. Tender when minimally palpated (L) 6.5cm x (W)6cm. R heel maroon in colour with fluctuance. Tender when minimally palpated.(L) 5.5cm x (W)7cm. Darker skin tone noted to lateral/posterior R tibia. Non-blanching erythema with fluctuance noted to tips of R and L 1st metatarsals. Spouse at bedside and all skin findings addressed with spouse .Spouse has been educated of risks for further skin decline, including possibility of DTPIs becoming open wounds.Spouse has been informed of interventions being implemented to minimize risks for further skin breakdown. Albumin low. nutritional optimization Tx.Plan: Cleanse Sacral wound with Saline. Apply Therahoney to open wounds.Apply Triad Paste periwound .Cover with Optifoam drsg. Change Daily and prn. Apply Cavilon Skin Barrier to Both heels. Cover each heel with Optifoam drsg. Change every 7 days and prn. Apply Cavilon Skin Barrier to both heels. Cover each heel with Optifoam drsg. Change every 7 days and prn. APM/TRACIE mattress overlay. Reposition at least every 2hours or as tolerated. Off-load heels with pillow. (2) Abnormal LFTs Assessment & Plan: Patient identified to have a elevated total bilirubin with a elevated direct bilirubin component. AST ALT alk phos are okay otherwise. Abdominal ultrasound identified and demonstrated cholelithiasis. Etiology of elevated liver enzymes currently unknown Potential medication reaction versus component of cholelithiasis labs trending down and improved okay for diet from surgical standpoint No acute surgical intervention at this time Roberto Grimm Sep 15, 2018 12:24
--- NOTE | 2018-09-15 13:21 | Infectious Diseases Prog Note ---
Assessment/Plan Assessment/Plan IMPRESSION: 1. Positive blood culture with staph Simulans likely contamination 2. Cholelithiasis 3. Atrial flutter. 4. Thrombocytopenia. 5. Congestive heart failure. 6. Aortic stenosis. 7. Mitral regurgitation. 8. Acute renal failure. 9. 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 antibiotic Poor prognosis Subjective ROS Limited/Unobtainable: Yes Constitutional: Reports: no symptoms Respiratory: Reports: no symptoms Cardiovascular: Reports: no symptoms Allergies: Coded Allergies: No Known Allergies (Unverified , 01/07/18) Objective Vital Signs Last 24 Hour Vital Signs Date Time Temp Pulse Resp B/P (MAP) Pulse Ox O2 Delivery O2 Flow Rate FiO2 09/15/18 08:18 91/53 09/15/18 08:18 79 91/53 09/15/18 08:00 97.9 79 23 91/53 (66) 98 09/15/18 08:00 74 09/15/18 04:00 Room Air 09/15/18 04:00 97.9 79 22 107/67 (80) 95 09/15/18 03:34 80 09/15/18 00:00 Room Air 09/15/18 00:00 97.9 78 24 102/58 (73) 96 09/15/18 00:00 76 09/14/18 21:16 77 110/76 09/14/18 20:00 Room Air 09/14/18 20:00 98.1 87 24 110/77 (88) 99 09/14/18 19:00 84 09/14/18 16:00 98.4 81 24 98/63 (75) 100 09/14/18 16:00 74 Height (Feet): 5 Height (Inches): 11.00 Weight (Pounds): 133 General Appearance: no acute distress HEENT: mucous membranes moist Respiratory/Chest: lungs clear Cardiovascular: normal rate Extremities: no edema Neurologic/Psychiatric: alert, responsive Laboratory Tests Test 09/15/18 09:30 09/15/18 11:25 Sodium Level 143 MMOL/L (136-145) Potassium Level 4.3 MMOL/L (3.5-5.1) Chloride Level 110 MMOL/L (98-107) H Carbon Dioxide Level 24 MMOL/L (21-32) Anion Gap 9 mmol/L (5-15) Blood Urea Nitrogen 21 mg/dL (7-18) H Creatinine 1.1 MG/DL (0.55-1.30) Estimat Glomerular Filtration Rate mL/min (>60) Glucose Level 90 MG/DL (74-106) Calcium Level 8.9 MG/DL (8.5-10.1) Total Bilirubin 1.8 MG/DL (0.2-1.0) H Direct Bilirubin 0.7 MG/DL (0.0-0.3) H Aspartate Amino Transf (AST/SGOT) 19 U/L (15-37) Alanine Aminotransferase (ALT/SGPT) < 6 U/L (12-78) L Alkaline Phosphatase 55 U/L (46-116) Total Protein 6.5 G/DL (6.4-8.2) Albumin 2.2 G/DL (3.4-5.0) L Globulin 4.3 g/dL Albumin/Globulin Ratio 0.5 (1.0-2.7) L White Blood Count 8.0 K/UL (4.8-10.8) Red Blood Count 3.60 M/UL (4.70-6.10) L Hemoglobin 12.1 G/DL (14.2-18.0) L Hematocrit 38.4 % (42.0-52.0) L Mean Corpuscular Volume 107 FL (80-99) H Mean Corpuscular Hemoglobin 33.5 PG (27.0-31.0) H Mean Corpuscular Hemoglobin Concent 31.4 G/DL (32.0-36.0) L Red Cell Distribution Width 15.6 % (11.6-14.8) H Platelet Count 195 K/UL (150-450) Mean Platelet Volume 9.4 FL (6.5-10.1) Neutrophils (%) (Auto) 72.3 % (45.0-75.0) Lymphocytes (%) (Auto) 16.5 % (20.0-45.0) L Monocytes (%) (Auto) 9.7 % (1.0-10.0) Eosinophils (%) (Auto) 0.5 % (0.0-3.0) Basophils (%) (Auto) 1.0 % (0.0-2.0) Prothrombin Time 12.9 SEC (9.30-11.50) H Prothromb Time International Ratio 1.2 (0.9-1.1) H Activated Partial Thromboplast Time 46 SEC (23-33) H Folate 4.7 NG/ML (8.6-58.9) L Current Medications Medications (Trade) Dose Ordered Sig/Fritz Route PRN Reason Start Time Stop Time Status Last Admin Dose Admin Acetaminophen (Tylenol) 650 mg Q6H PRN ORAL Mild Pain/Temp > 100.5 09/11/18 19:45 10/11/18 19:44 Carvedilol (Coreg) 3.125 mg EVERY 12 HOURS ORAL 09/11/18 21:00 10/09/18 20:59 09/14/18 21:16 Enoxaparin Sodium (Lovenox) 50 mg Q12HR SUBQ 09/11/18 21:00 10/11/18 20:59 09/15/18 08:25 Famotidine (Pepcid) 20 mg DAILY ORAL 09/10/18 09:00 10/10/18 08:59 09/15/18 08:18 Furosemide (Lasix) 40 mg DAILY ORAL 09/10/18 09:00 10/10/18 08:59 09/15/18 08:18 Losartan Potassium (Cozaar) 25 mg DAILY ORAL 09/12/18 09:00 10/10/18 08:59 Olanzapine (ZyPREXA) 2.5 mg BEDTIME ORAL 09/11/18 21:00 10/11/18 20:59 09/14/18 21:15 Spironolactone (Aldactone) 25 mg DAILY ORAL 09/14/18 09:00 10/10/18 08:59 Vitamin A/Vitamin D (A & D Oint) 1 applic EVERY 12 HOURS TOPIC 09/09/18 21:00 10/09/18 20:59 09/15/18 08:18 Warfarin Sodium (Coumadin per pharmacy) 1 ea DAILY PRN MISC Per rx protocol 09/11/18 14:30 10/11/18 14:29 Alexis Rivera MD Sep 15, 2018 13:21
--- NOTE | 2018-09-15 13:48 | NUR ---
SWALLOW/SPEECH THERAPY NOTE: REFERRED FOR SWALLOW EVALUATION BY DR. HAWLEY SEE FULL REPORT TO FOLLOW IN ST CARE ACTIVITY SECTION. DYSPHAGIA RISK FACTORS FOR THIS 77 Y.O.M.: ACUTE GEN WEAKNESS, SOB, FTT, POOR APPETITE FEW DAYS PRIOR TO ADMIT (SO NOW 9 DAYS POOR TO NO PO INTAKE) AND LOSING WT, AF, NEEDS CARDIAC CATH, S/P NON-ST ELEV [place], LUNGS CHF WITH INTERVAL WORSENING PER RD PNA/RIGHT HILAR MASS, ON SACHA NOW ROOM AIR BUT RR UP TO 24 AT TIMES (HIGH END) AND LOOKS SOB PER PSYCHIATRIST: ZYPREXA STARTED FEW DAYS AGO H/O CARDIAC D/O, COPD, CAD, HTN, SEVERE CARDIOMYOPATHY, AND RESPIRATORY D/O NO POLST NOR ADVANCE DIRECTIVE NOTED REGARDING TUBE FEEDING PREFERENCES ? DIET AT HOME BUT NOW ON A SOFT CHEW DIET AND THIN LIQUIDS WITH POOR TO NO INTAKE 25% X3 AND REFUSED X4. PER RN, NO OVERT S/S OF ASPIRATION WITH THIN LIQUIDS NOR PUREED CREAM OF WHEAT AND CRUSHED MEDS WITH PUREED BUT SWALLOWING IS VERY SLOW (10 SECONDS AND NEEDS REMINDERS TO SWALLOW). PER PSYCHIATRIST, HE HAS COGNITIVE/MEMORY PROBLEMS. FEEDS HIM AND HE IS BETTER TAKING HIS ENSURE PER RN. POOR ATTENTION AND FOLLOWING ORAL COMMANDS. VOICE IS SOFT BUT CLEAR, POOR SPEECH INTELLIGIBILITY AT WORD LEVEL BUT CAN EXPRESS SOME NEEDS. INITIAL IMPRESSIONS: S/S OF AT LEAST A MODERATE ORAL PREP AND OROPHARYNGEAL DYSPHAGIA WITH INCREASED ORAL PREP AND OROPHARYNGEAL TRANSIT TIMES. ADEQUATE LIP CLOSURE BUT TENDS TO BREATH WITH MOUTH OPEN. TONGUE SPEED SLOW AND HAS REDUCED ROM, DID NOT FOLLOW COMMAND TO TEST STRENGTH. VOICE VERY SOFT AND SEEMS SOB (RR 24 AT TIMES) GIVEN TSP THIN LIQUIDS GROSSLY FUNCTIONAL BUT GIVEN SIP VIA CUP, NEEDED TO SWALLOW 4 TIMES AND HAD WEAK THROAT CLEAR AFTER THE SWALLOW (POSSIBLE ASPIRATION AFTER THE SWALLOW). GIVEN NECTAR THICK LIQUIDS TSP/CUP GROSSLY FUNCTIONAL SWALLOW BUT NEEDED 1-2 EXTRA SWALLOWS TO CLEAR (?PHARYNGEAL RESIDUE VERSUS ORAL) BUT NO OVERT S/S OF ASPIRATION. GIVEN TSP PUREED TAKES 15 SECONDS TO SWALLOW WITH FAIR HYOLARYNGEAL EXCURSION BUT NEEDS AN EXTRA SWALLOW WHICH IS DELAYED (DID NOT APPEAR TO BE ORAL RESIDUE SO MAY BE PHARYNGEAL), AND HAD A WEAK THROAT CLEAR AFTER THE SWALLOW (? ASP VERSUS PHARYNGEAL RESIDUE) HAS HIGH SILENT ASPIRATION RISK HE APPEARS NEUROLOGICALLY IMPAIRED OVERALL POOR TO NO INTAKE FOR THE LAST 9 DAYS. RECOMMENDATIONS: CONSERVATIVELY, CONSIDER NONORAL FEEDINGS (12 GEORGIAN NGT) AND POSSIBLE LONGER TERM NONORAL FEEDINGS PRIMARY SOURCE OF NUTRITION/HYDRATION. COMPLETE MOD BARIUM SWALLOW STUDY TO FURTHER ASSESS SWALLOW, DETERMINE SILENT ASP RISK, AND ATTEMPT TRIAL TX TECHNIQUES. IF PO IS CONSIDER FOR SOME ORAL GRATIFICATION AND QUALITY OF LIFE PURPOSES, CONSIDER DOWNGRADING TO LIQUIFIED PUREED LIKE NECTAR THICK LIQUID CONSISTENCY WITH POSTED ASPIRATION PRECAUTIONS. CONTINUE WITH HIGH PRESTON SUP AND CALORIE COUNT AND DIET TYPE PER RD RD ALREADY PLACED TUBE FEEDING RECOMMENDATIONS IN THEIR NOTES UNDER CARE ACTIVITY SECTION. SKILLED DYSPHAGIA MANAGEMENT AND TX AND COG-COM EVAL/TX FOR COM TIPS D/W WITH ANGIE CHATTERJEE, LEFT MESSAGE WITH DR Peres THROUGH RN,FAMILY, PT (WHO IS CONFUSED), AND DR BEAUCHAMP.
--- NOTE | 2018-09-15 15:56 | Cardiac Electrophysiology PN ---
Assessment/Plan Assessment/Plan 1. Atrial flutter with rapid ventricular response 140s, better on Coreg 3.125 mg b.i.d. and Lovenox and Coumadin held for PEG. Had atrial flutter in December 2017 and would benefit from atrial flutter ablation when stabilized.In 70s now 2. Severe cardiomyopathy with EF 15%. Cardiac catheterization by me in December 2017. On Cozaar 25 mg daily, Lasix 40 mg daily, Aldactone 25 mg daily, and Coreg 3.125 mg b.i.d. ( Hold for SBP<100) 3. Mobile LV Clot On Lovenox and Coumadin held for PEG 4. History of DVT, on Eliquis. 5. History of hypertension. 6. Severe MAIK 0.3 7. Dysphagia, EGD, PEG pending in am. Patient optimized from cardiac stand point no further cardiac testing/ procedures needed prior to PEG placement DW RN, Dr Boo and Subjective Subjective Alert and responsive. No CP or SOB. EF 15%. Remained in flutter, very weak. On Coumadin and Lovenox for LV clot. at bedside Objective Last 24 Hour Vital Signs Date Time Temp Pulse Resp B/P (MAP) Pulse Ox O2 Delivery O2 Flow Rate FiO2 09/15/18 08:18 91/53 09/15/18 08:18 79 91/53 09/15/18 08:00 97.9 79 23 91/53 (66) 98 09/15/18 08:00 74 09/15/18 04:00 Room Air 09/15/18 04:00 97.9 79 22 107/67 (80) 95 09/15/18 03:34 80 09/15/18 00:00 Room Air 09/15/18 00:00 97.9 78 24 102/58 (73) 96 09/15/18 00:00 76 09/14/18 21:16 77 110/76 09/14/18 20:00 Room Air 09/14/18 20:00 98.1 87 24 110/77 (88) 99 09/14/18 19:00 84 09/14/18 16:00 98.4 81 24 98/63 (75) 100 09/14/18 16:00 74 Intake and Output 09/14/18 09/15/18 18:59 06:59 Intake Total 200 ml Output Total 350 ml 125 ml Balance -150 ml -125 ml Intake Oral 200 ml Output Urine Total 350 ml 125 ml Laboratory Tests Test 09/15/18 09:30 09/15/18 11:25 Sodium Level 143 MMOL/L (136-145) Potassium Level 4.3 MMOL/L (3.5-5.1) Chloride Level 110 MMOL/L (98-107) H Carbon Dioxide Level 24 MMOL/L (21-32) Anion Gap 9 mmol/L (5-15) Blood Urea Nitrogen 21 mg/dL (7-18) H Creatinine 1.1 MG/DL (0.55-1.30) Estimat Glomerular Filtration Rate mL/min (>60) Glucose Level 90 MG/DL (74-106) Calcium Level 8.9 MG/DL (8.5-10.1) Total Bilirubin 1.8 MG/DL (0.2-1.0) H Direct Bilirubin 0.7 MG/DL (0.0-0.3) H Aspartate Amino Transf (AST/SGOT) 19 U/L (15-37) Alanine Aminotransferase (ALT/SGPT) < 6 U/L (12-78) L Alkaline Phosphatase 55 U/L (46-116) Total Protein 6.5 G/DL (6.4-8.2) Albumin 2.2 G/DL (3.4-5.0) L Globulin 4.3 g/dL Albumin/Globulin Ratio 0.5 (1.0-2.7) L White Blood Count 8.0 K/UL (4.8-10.8) Red Blood Count 3.60 M/UL (4.70-6.10) L Hemoglobin 12.1 G/DL (14.2-18.0) L Hematocrit 38.4 % (42.0-52.0) L Mean Corpuscular Volume 107 FL (80-99) H Mean Corpuscular Hemoglobin 33.5 PG (27.0-31.0) H Mean Corpuscular Hemoglobin Concent 31.4 G/DL (32.0-36.0) L Red Cell Distribution Width 15.6 % (11.6-14.8) H Platelet Count 195 K/UL (150-450) Mean Platelet Volume 9.4 FL (6.5-10.1) Neutrophils (%) (Auto) 72.3 % (45.0-75.0) Lymphocytes (%) (Auto) 16.5 % (20.0-45.0) L Monocytes (%) (Auto) 9.7 % (1.0-10.0) Eosinophils (%) (Auto) 0.5 % (0.0-3.0) Basophils (%) (Auto) 1.0 % (0.0-2.0) Prothrombin Time 12.9 SEC (9.30-11.50) H Prothromb Time International Ratio 1.2 (0.9-1.1) H Activated Partial Thromboplast Time 46 SEC (23-33) H Folate 4.7 NG/ML (8.6-58.9) L Objective HEAD AND NECK: Mild JVD. LUNGS: Coarse rhonchi. CARDIOVASCULAR: Irregular. S1 and S2 with no gallop or murmur. ABDOMEN: Soft. EXTREMITIES: No pitting edema. Antonio Conde MD Sep 15, 2018 15:56
[2018-09-15 16:00] VITALS: BP 99/70
--- NOTE | 2018-09-15 19:31 | NUR ---
HAND-OFF: Report given to tony conner.
--- NOTE | 2018-09-15 19:32 | NUR ---
NURSE NOTES: Received patient from ANGIE Terrell. patient is sleeping in bed, arousable to name, denies pain at this time. patient is on room air, tolerating well; no s/sx of resiratory distress noted at this time. IV sites are patent and intact, running fluids TKO. Condom catheter is patent and intact, draining well. family is at bedside. bed in lowest position and locked, siderails up X3, call light within reach. will continue to monitor.
[2018-09-15 20:00] VITALS: BP 92/65
[2018-09-15] MEDS: OLANZapine 2.5mg tab ORAL SCH (21:00)
--- NOTE | 2018-09-15 23:30 | Consultation ---
DATE OF CONSULTATION: 09/15/2018 GASTROENTEROLOGY CONSULTATION CONSULTING PHYSICIAN: Phoenix Boo M.D. REFERRING PHYSICIAN: Inocencia Watt M.D. CHIEF COMPLAINT: Dysphagia, failure to thrive. HISTORY OF PRESENT ILLNESS: Most of the history per chart. The patient is a 77-year-old, known to me from multiple admissions for history of coronary artery disease, had a followup with Dr. Conde. The patient has history of cardiomyopathy with EF of 20%. Has also atrial fibrillation. Currently on anticoagulation. The patient apparently not been eating well. I spoke with the family. Apparently, he has not been eating for last 2 months, losing a lot of weight. According to the family, he refuses to eat. Here, it is documented that he eats only 25% of his meals. So, GI consult was requested for possible PEG placement. PAST MEDICAL HISTORY: 1. Hypertension. 2. Non-ST elevation [place]. 3. Cardiomyopathy with EF of 20%. 4. Atrial flutter with rapid ventricular response. 5. Renal insufficiency. 6. Right leg DVT. 7. Failure to thrive. ALLERGIES: No known drug allergies. MEDICATIONS: Please see medication reconciliation list. SOCIAL HISTORY: There is no history of tobacco, alcohol, or drug abuse. FAMILY HISTORY: Noncontributory. REVIEW OF SYSTEMS: Limited. PHYSICAL EXAMINATION: VITAL SIGNS: Temperature 97.9, pulse 79, respirations 23, blood pressure 91/53. HEENT: Normocephalic and atraumatic. Sclerae anicteric. NECK: Supple. No evidence of obvious lymphadenopathy. CARDIOVASCULAR: Regular rate and rhythm. Plus S1 and S2. There is a murmur in the left sternal border. LUNGS: Decreased breath sounds bilaterally in supine exam. ABDOMEN: Soft, nontender. No rebound. No guarding. No peritoneal sign. EXTREMITIES: No cyanosis, no clubbing, but there is evidence of edema on the left lower extremity. LABORATORY DATA: White count is 8, hemoglobin 12, hematocrit 38, platelet count is 195. ASSESSMENT AND PLAN: This is a 77-year-old male with failure to thrive. I had a long discussion with the family and primary care physician. We both agree that the patient needs enteral feeding. Option of not doing anything versus giving appetite stimulant versus doing a G-tube was discussed with the family and they decided for the patient to have a G-tube. So, plan will be to hold the Coumadin. We will check the PT/INR for tomorrow. Hold Lovenox in the morning. Plan to do the PEG for tomorrow. Also, I discussed with Dr. Conde, the green energy marketing analyst regarding the safety of this procedure. Dr. Conde cleared the patient for procedure for tomorrow. I want to thank Dr. Watt for this kind referral. Phoenix Boo M.D. DR: SHANTI JOB#: [id number] CC: Inocencia Watt M.D.; Fax#: [phone]
[2018-09-16] VITALS (10 sets, daily range): BP systolic 87–100; BP diastolic 51–70
--- NOTE | 2018-09-16 02:00 | Progress Note ---
DATE: 09/15/2018 SUBJECTIVE: The patient is . The patient in no acute distress. Still has episodes of anxiety. Calm. Continues to be weak and lethargic. MENTAL STATUS EXAMINATION: The patient is alert and oriented times self. Mood is Thought process, there is a paucity of thought content. Thought content, no suicidal or homicidal ideation. ASSESSMENT: 1. Cognitive impairment. 2. Acute encephalopathy. PLAN: 1. We will continue current medication. 2. Provide the patient with reality orientation and supportive therapy. Rozina Angela M.D. DR: CELINA JOB#: [id number] CC: KARELY
[2018-09-16 04:36] LABS: EOSINOPHILS % (AUTO) 0.6 % (0.0-3.0); HEMATOCRIT 38.5 % (42.0-52.0); HEMOGLOBIN 12.2 G/DL (14.2-18.0); LYMPHOCYTES % (AUTO) 17.5 % (20.0-45.0); MEAN CORPUSCULAR VOLUME 108 FL (80-99); MONOCYTES % (AUTO) 7.9 % (1.0-10.0); NEUTROPHILS % (AUTO) 73.1 % (45.0-75.0); PLATELET COUNT 198 K/UL (150-450); RED BLOOD COUNT 3.57 M/UL (4.70-6.10); RED CELL DISTRIBUTION WIDTH 15.8 % (11.6-14.8); WHITE BLOOD COUNT 8.1 K/UL (4.8-10.8)
[2018-09-16 04:40] LABS: INR 1.3 (0.9-1.1)
[2018-09-16 04:49] LABS: ANION GAP 8 mmol/L (5-15); BLOOD UREA NITROGEN 25 mg/dL (7-18); CALCIUM 8.5 MG/DL (8.5-10.1); CARBON DIOXIDE 23 MMOL/L (21-32); CHLORIDE 110 MMOL/L (98-107); CREATININE 1.1 MG/DL (0.55-1.30); POTASSIUM 4.5 MMOL/L (3.5-5.1); SODIUM 141 MMOL/L (136-145)
--- NOTE | 2018-09-16 06:29 | Anethesia Preoperative Eval ---
Anesthesia Pre-op PMH/ROS General Date of Evaluation: Sep 16, 2018 Time of Evaluation: 06:26 Anesthesiologist: adelia ASA Score: ASA 4 Mallampati Score Class I : Soft palate, uvula, fauces, pillars visible Class II: Soft palate, uvula, fauces visible Class III: Soft palate, base of uvula visible Class IV: Only hard plate visible Mallampati Classification: Class II Surgeon: otoniel Diagnosis: dysphagia Surgical Procedure: egd/peg Anesthesia History: none Social History: smoking - nonsmoker Family History: no anesthesia problems Allergies: Coded Allergies: No Known Allergies (Unverified , 01/07/18) Medications: see eMAR Patient NPO?: Yes Past Medical History Cardiovascular: Reports: HTN, arrhythmia, other - cardiomyopathy Pulmonary: Reports: COPD Gastrointestinal/Genitourinary: Reports: other - abnormal liver function tests Neurologic/Psychiatric: Reports: other - weakness Hematology/Immune: Reports: anemia Musculoskeletal/Integumentary: Reports: other - decubitus skin ulcers Anesthesia Pre-op Phys. Exam Physician Exam Last Vital Signs Date Time Temp Pulse Resp B/P (MAP) Pulse Ox O2 Delivery O2 Flow Rate FiO2 09/16/18 04:00 98.1 74 20 90/64 (73) 96 09/16/18 04:00 Nasal Cannula 2.0 Constitutional: NAD Neurologic: other - paraplegia Cardiovascular: other - irreg irreg Respiratory: CTA Gastrointestinal: S/NT/ND Airway Exam Mallampati Score: Class II MO: limited Neck: flexible TMD: 2fb ROM: limited Teeth: missing Anesthesia Pre-op A/P Labs Hematology Test 09/15/18 11:25 09/16/18 03:14 White Blood Count 8.0 K/UL (4.8-10.8) 8.1 K/UL (4.8-10.8) Red Blood Count 3.60 M/UL (4.70-6.10) L 3.57 M/UL (4.70-6.10) L Hemoglobin 12.1 G/DL (14.2-18.0) L 12.2 G/DL (14.2-18.0) L Hematocrit 38.4 % (42.0-52.0) L 38.5 % (42.0-52.0) L Mean Corpuscular Volume 107 FL (80-99) H 108 FL (80-99) H Mean Corpuscular Hemoglobin 33.5 PG (27.0-31.0) H 34.0 PG (27.0-31.0) H Mean Corpuscular Hemoglobin Concent 31.4 G/DL (32.0-36.0) L 31.5 G/DL (32.0-36.0) L Red Cell Distribution Width 15.6 % (11.6-14.8) H 15.8 % (11.6-14.8) H Platelet Count 195 K/UL (150-450) 198 K/UL (150-450) Mean Platelet Volume 9.4 FL (6.5-10.1) 9.6 FL (6.5-10.1) Neutrophils (%) (Auto) 72.3 % (45.0-75.0) 73.1 % (45.0-75.0) Lymphocytes (%) (Auto) 16.5 % (20.0-45.0) L 17.5 % (20.0-45.0) L Monocytes (%) (Auto) 9.7 % (1.0-10.0) 7.9 % (1.0-10.0) Eosinophils (%) (Auto) 0.5 % (0.0-3.0) 0.6 % (0.0-3.0) Basophils (%) (Auto) 1.0 % (0.0-2.0) 1.0 % (0.0-2.0) Coagulation Test 09/15/18 11:25 09/16/18 03:14 Prothrombin Time 12.9 SEC (9.30-11.50) H 14.0 SEC (9.30-11.50) H Prothromb Time International Ratio 1.2 (0.9-1.1) H 1.3 (0.9-1.1) H Activated Partial Thromboplast Time 46 SEC (23-33) H Chemistry Test 09/15/18 09:30 09/15/18 11:25 09/16/18 03:14 Sodium Level 143 MMOL/L (136-145) 141 MMOL/L (136-145) Potassium Level 4.3 MMOL/L (3.5-5.1) 4.5 MMOL/L (3.5-5.1) Chloride Level 110 MMOL/L (98-107) H 110 MMOL/L (98-107) H Carbon Dioxide Level 24 MMOL/L (21-32) 23 MMOL/L (21-32) Anion Gap 9 mmol/L (5-15) 8 mmol/L (5-15) Blood Urea Nitrogen 21 mg/dL (7-18) H 25 mg/dL (7-18) H Creatinine 1.1 MG/DL (0.55-1.30) 1.1 MG/DL (0.55-1.30) Estimat Glomerular Filtration Rate mL/min (>60) mL/min (>60) Glucose Level 90 MG/DL (74-106) 151 MG/DL (74-106) H Calcium Level 8.9 MG/DL (8.5-10.1) 8.5 MG/DL (8.5-10.1) Total Bilirubin 1.8 MG/DL (0.2-1.0) H Direct Bilirubin 0.7 MG/DL (0.0-0.3) H Aspartate Amino Transf (AST/SGOT) 19 U/L (15-37) Alanine Aminotransferase (ALT/SGPT) < 6 U/L (12-78) L Alkaline Phosphatase 55 U/L (46-116) Total Protein 6.5 G/DL (6.4-8.2) Albumin 2.2 G/DL (3.4-5.0) L Globulin 4.3 g/dL Albumin/Globulin Ratio 0.5 (1.0-2.7) L Folate 4.7 NG/ML (8.6-58.9) L Risk Assessment & Plan Assessment: [email or web address] Plan: mac Status Change Before Surgery: No Pre-Antibiotics Drug: cefoxitin 1gm Given Within 1 Hr of Incision: Yes Time Given: 08:07 María Bailey MD Sep 16, 2018 06:29
[2018-09-16] MEDS ORDERED: Midazolam 2mg/2ml Inj IVP PRN (06:30)
[2018-09-16] MEDS ORDERED: DiphenhydrAMINE 50mg/ml Inj IVP PRN (06:30)
[2018-09-16] MEDS ORDERED: Atropine Inj 1mg/10ml Syr IV PRN (06:30)
[2018-09-16] MEDS ORDERED: fentaNYL 100 mcg/2 mL IV PRN (06:30)
[2018-09-16] MEDS: Enoxaparin Sodium 300mg/3ml vial SUBQ SCH (07:34)
--- NOTE | 2018-09-16 07:41 | NUR ---
HAND-OFF: Report given to ANGIE Solares. patient is in stable condition.
--- NOTE | 2018-09-16 07:58 | General Progress Note ---
Assessment/Plan Problem List: (1) Abnormal LFTs ICD Codes: R94.5 - Abnormal results of liver function studies SNOMED: 755428076 (2) aflutter (3) Afib ICD Codes: I48.91 - Afib SNOMED: 46869181 (4) Decubitus skin ulcer ICD Codes: L89.90 - Pressure ulcer of unspecified site, unspecified stage SNOMED: 364664002 (5) Anemia ICD Codes: D64.9 - Anemia, unspecified SNOMED: 023663971 (6) Cardiomyopathy ICD Codes: I42.9 - Cardiomyopathy, unspecified SNOMED: 57312208 Assessment/Plan: labs reviewed plan PEG for today Subjective ROS Limited/Unobtainable: No Allergies: Coded Allergies: No Known Allergies (Unverified , 01/07/18) Objective Last 24 Hour Vital Signs Date Time Temp Pulse Resp B/P (MAP) Pulse Ox O2 Delivery O2 Flow Rate FiO2 09/16/18 04:00 98.1 74 20 90/64 (73) 96 09/16/18 04:00 Nasal Cannula 2.0 09/16/18 03:23 84 09/16/18 00:00 79 09/16/18 00:00 Room Air 09/16/18 00:00 99.1 84 24 90/66 (74) 98 09/15/18 20:00 Room Air 09/15/18 20:00 85 09/15/18 20:00 98.9 85 22 92/65 (74) 100 09/15/18 16:00 102 09/15/18 16:00 99.5 81 21 99/70 (80) 99 09/15/18 12:00 99.0 99 23 99/70 (80) 98 09/15/18 12:00 89 09/15/18 08:18 91/53 09/15/18 08:18 79 91/53 09/15/18 08:00 97.9 79 23 91/53 (66) 98 09/15/18 08:00 74 Intake and Output 09/15/18 09/16/18 19:00 07:00 Intake Total 250 ml Output Total 50 ml 200 ml Balance 200 ml -200 ml Intake Oral 250 ml Output Urine Total 50 ml 200 ml # Voids 2 # Bowel Movements 1 Laboratory Tests 09/15/18 09:30: Sodium Level 143, Potassium Level 4.3, Chloride Level 110H, Carbon Dioxide Level 24, Anion Gap 9, Blood Urea Nitrogen 21H, Creatinine 1.1, Estimat Glomerular Filtration Rate , Glucose Level 90, Calcium Level 8.9, Total Bilirubin 1.8H, Direct Bilirubin 0.7H, Aspartate Amino Transf (AST/SGOT) 19, Alanine Aminotransferase (ALT/SGPT) < 6L, Alkaline Phosphatase 55, Total Protein 6.5, Albumin 2.2L, Globulin 4.3, Albumin/Globulin Ratio 0.5L 09/15/18 11:25: White Blood Count 8.0, Red Blood Count 3.60L, Hemoglobin 12.1L, Hematocrit 38.4L , Mean Corpuscular Volume 107H, Mean Corpuscular Hemoglobin 33.5H, Mean Corpuscular Hemoglobin Concent 31.4L, Red Cell Distribution Width 15.6H, Platelet Count 195, Mean Platelet Volume 9.4, Neutrophils (%) (Auto) 72.3, Lymphocytes (%) (Auto) 16.5L, Monocytes (%) (Auto) 9.7, Eosinophils (%) (Auto) 0.5, Basophils (%) (Auto) 1.0, Prothrombin Time 12.9H, Prothromb Time International Ratio 1.2H, Activated Partial Thromboplast Time 46H, Folate 4.7L 09/16/18 03:14: Sodium Level 141, Potassium Level 4.5, Chloride Level 110H, Carbon Dioxide Level 23, Anion Gap 8, Blood Urea Nitrogen 25H, Creatinine 1.1, Estimat Glomerular Filtration Rate , Glucose Level 151H, Calcium Level 8.5, White Blood Count 8.1, Red Blood Count 3.57L, Hemoglobin 12.2L, Hematocrit 38.5L, Mean Corpuscular Volume 108H, Mean Corpuscular Hemoglobin 34.0H, Mean Corpuscular Hemoglobin Concent 31.5L, Red Cell Distribution Width 15.8H, Platelet Count 198 , Mean Platelet Volume 9.6, Neutrophils (%) (Auto) 73.1, Lymphocytes (%) (Auto) 17.5L, Monocytes (%) (Auto) 7.9, Eosinophils (%) (Auto) 0.6, Basophils (%) (Auto ) 1.0, Prothrombin Time 14.0H, Prothromb Time International Ratio 1.3H Height (Feet): 5 Height (Inches): 11.00 Weight (Pounds): 140 General Appearance: no apparent distress EENT: normal ENT inspection Neck: supple Cardiovascular: normal rate Respiratory/Chest: decreased breath sounds Abdomen: normal bowel sounds, non tender, soft Extremities: non-tender Phoenix Boo MD Sep 16, 2018 07:58
--- NOTE | 2018-09-16 07:58 | Pre-Procedure Note/Attestation ---
Pre-Procedure Note/Attestation Complete Prior to Procedure Planned Procedure: not applicable Procedure Narrative: egd/peg Indications for Procedure Pre-Operative Diagnosis: dysphagia Attestation I attest that I discussed the nature of the procedure; its benefits; risks and complications; and alternatives (and the risks and benefits of such alternatives ), prior to the procedure, with the patient (or the patient's legal sales representative womens health). I attest that, if there was a reasonable possibility of needing a blood transfusion, the patient (or the patient's legal sales representative womens health) was given the [facility] standardized written summary, pursuant to the Wiley Johnathon Blood Safety Act ([place] Health and Safety Code # 1645, as amended). I attest that I re-evaluated the patient just prior to the surgery and that there has been no change in the patient's H&P, except as documented below: Phoenix Boo MD Sep 16, 2018 07:58
[2018-09-16] MEDS ORDERED: cefOXitin 1gm Inj ONE (08:14)
[2018-09-16] MEDS ORDERED: NS 500ML IVPB ONE (08:25)
[2018-09-16] MEDS: Furosemide 40mg tab ORAL SCH (09:00)
--- NOTE | 2018-09-16 09:04 | Endoscopy Procedure Note ---
Endoscopy Procedure Note General Indication for Procedure: dysphagia Procedures Performed: EGD, PEG Operative Findings/Diagnosis: same Specimen: none Pt Tolerated Procedure Well: Yes Estimated Blood Loss: none Anesthesia Anesthesiologist: adelia Anesthesia: MAC Inserted Devices Implant(s) used?: No GI Core Measures 50 yrs or older w/o bx or poly: Not Applicable 10yrs. F/U recommended: Not Applicable Phoenix Boo MD Sep 16, 2018 09:04
--- NOTE | 2018-09-16 09:08 | Immediate Post-Op Evaluation ---
Immediate Post-Op Evalulation Immediate Post-Op Evalulation Procedure: egd/peg Date of Evaluation: Sep 16, 2018 Time of Evaluation: 08:59 IV Fluids: 50ml 0.9ns Blood Products: none Estimated Blood Loss: negligible Blood Pressure Systolic: 89 Blood Pressure Diastolic: 67 Pulse Rate: 75 Respiratory Rate: 18 O2 Sat by Pulse Oximetry: 95 Temperature (Fahrenheit): 98.3 Pain Score (1-10): 0 Nausea: No Vomiting: No Complications none Patient Status: awake, reacts, patent Hydration Status: adequate Drug: María Gutierrez MD Sep 16, 2018 09:08
--- NOTE | 2018-09-16 09:09 | 48 Hour Post Anesthesia Eval ---
Post Anesthesia Evaluation Procedure: egd/peg Date of Evaluation: Sep 16, 2018 Time of Evaluation: 09:01 Blood Pressure Systolic: 90 0: 64 Pulse Rate: 75 Respiratory Rate: 18 Temperature (Fahrenheit): 98.3 O2 Sat by Pulse Oximetry: 97 Airway: patent Nausea: No Vomiting: No Pain Intensity: 0 Hydration Status: adequate Cardiopulmonary Status: stable Mental Status/LOC: patient returned to baseline Post-Anesthesia Complications: none Follow-up care needed: N/A María Bailey MD Sep 16, 2018 09:09
[2018-09-16] MEDS: Losartan 25mg tab ORAL SCH (09:30)
[2018-09-16] MEDS: Spironolactone 25mg tab ORAL SCH (09:30)
--- NOTE | 2018-09-16 09:30 | NUR ---
NURSE NOTES: RECEIVED PT FROM GI LAB. PT S/P EGD AND PEG PLACEMENT. B/P 99/63,TEMP 96.6 AX,HR 72,SAT 98%, RR 20. PT SEEMS COMFORTABLE AT THIS TIME.PT WITH PEG IN PLACE AND INTACT. PT AT BED SIDE. WILL CONT TO MONITOR.
--- NOTE | 2018-09-16 09:41 | NUR ---
NURSE NOTES: PT HAD 15 BEATS OF V- TACH .PLACED A TELEPHONE CALL TO DR SHANKS AND MADE AWARE AND NOTIFIED REGARDING PT HAB 15 BEATS OF V-TACH AND PT IS RESTING COMFORTABLY. NO NEW ORDERS NOTED AT THIS TIME. WILL CONT TO MONITOR.
--- NOTE | 2018-09-16 09:59 | NUR ---
*-* DISCHARGE PLANNING *-* PATIENT HAS BEEN REFERRED TO: [facility] P: [phone] F: [phone]
--- NOTE | 2018-09-16 10:00 | Hematology/Onc Progress Note ---
Assessment/Plan Assessment/Plan Assessment and Recs: # Thrombocytopenia - most likely related to PNA infection. 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 --> Anemia w/u has been reviewed. Ferritin at 450. --> WIll trend CBC as needed. --> hgb goal >7. Transfuse prn. --> No evidence of hemolysis noted # Courtney --> as per renal 1.4-->1.2-->1.1 # PNA/right hilar mass. CXR has been reviewed. --> May need abx --> pulm eval prn # Myocardial infarction. --> Cardiac cath [address] Conde # Atrial flutter with rapid ventricular response. --> per cards # Psych disorder -- as per psych recs Greatly appreciate consultation! Subjective Constitutional: Denies: no symptoms, chills, fever, malaise, weakness, other HEENT: Denies: no symptoms, eye pain, blurred vision, tearing, double vision, ear pain, ear discharge, nose pain, nose congestion, throat pain, throat swelling, mouth pain, mouth swelling, other Cardiovascular: Denies: no symptoms, chest pain, edema, irregular heart rate, lightheadedness, palpitations, syncope, other Respiratory: Denies: no symptoms, cough, shortness of breath, SOB with excertion, SOB at rest, sputum, wheezing, other Genitourinary: Denies: no symptoms, burning, discharge, frequency, flank pain, hematuria, incontinence, pain, urgency, other Neurologic/Psychiatric: Denies: no symptoms, anxiety, depressed, emotional problems, headache, numbness, paresthesia, pre-existing deficit, seizure, tingling, tremors, weakness, other Endocrine: Denies: no symptoms, excessive sweating, flushing, intolerance to cold, intolerance to heat, increased hunger, increased thirst, increased urine, unexplained weight gain, unexplained weight loss, other Allergies: Coded Allergies: No Known Allergies (Unverified , 01/07/18) Subjective 09/11: no fevers noted, no chills, bp is low, remains on eliquis and seen by cards 09/12: no bleeding, no chills, no night sweats, is on lovenox and coumadin, inr goal 2-3 09/13: no events, inr higher, no f/c, no bleeding 09/14: labs have been reviewed, improved, arousable in am, by bedside 09/15: no events, no bleeding, comfortable, sleeping, labs reviewed 09/16: peg successfully was placed, seen by Vosomisaeli, in room as well Objective Objective Current Medications Medications (Trade) Dose Ordered Sig/Fritz Route PRN Reason Start Time Stop Time Status Last Admin Dose Admin Acetaminophen (Tylenol) 650 mg Q6H PRN ORAL Mild Pain/Temp > 100.5 09/11/18 19:45 10/11/18 19:44 Al Hydroxide/Mg Hydroxide (Mylanta) 15 ml Q1H PRN ORAL gi upset 09/16/18 06:30 09/16/18 12:00 Atropine Sulfate (Atropine) 0.5 mg Q5M PRN IV bpm less than 45 09/16/18 06:30 09/16/18 12:00 Carvedilol (Coreg) 3.125 mg EVERY 12 HOURS ORAL 09/11/18 21:00 10/09/18 20:59 09/14/18 21:16 Diphenhydramine HCl (Benadryl) 25 mg Q15M PRN IVP Itching 09/16/18 06:30 09/16/18 12:00 Enoxaparin Sodium (Lovenox) 50 mg Q12HR SUBQ 09/11/18 21:00 10/11/18 20:59 09/15/18 21:05 Famotidine (Pepcid) 20 mg DAILY ORAL 09/10/18 09:00 10/10/18 08:59 09/15/18 08:18 Fentanyl Citrate (Sublimaze 100 mcg/2 mL) 25 mcg Q10M PRN IV Moderate Pain (Pain Scale 4-6) 09/16/18 06:30 09/16/18 12:00 Furosemide (Lasix) 40 mg DAILY ORAL 09/10/18 09:00 10/10/18 08:59 09/15/18 08:18 Hydralazine HCl (Apresoline) 5 mg Q30M PRN IV SBP>160 OR___/DBP>90 OR___ 09/16/18 06:30 09/16/18 12:00 Losartan Potassium (Cozaar) 25 mg DAILY ORAL 09/12/18 09:00 10/10/18 08:59 Midazolam HCl (Versed 2mg/2ml vial) 1 mg Q15M PRN IVP For Anxiety 09/16/18 06:30 09/16/18 12:00 Olanzapine (ZyPREXA) 2.5 mg BEDTIME ORAL 09/11/18 21:00 10/11/18 20:59 09/14/18 21:15 Ondansetron HCl (Zofran) 4 mg Q1H PRN IVP Nausea & Vomiting 09/16/18 06:30 09/16/18 12:00 Sodium Chloride 1,000 ml @ 10 mls/hr Q24H IVLG 09/16/18 06:24 09/16/18 12:00 09/16/18 07:03 Spironolactone (Aldactone) 25 mg DAILY ORAL 09/14/18 09:00 10/10/18 08:59 Vitamin A/Vitamin D (A & D Oint) 1 applic EVERY 12 HOURS TOPIC 09/09/18 21:00 10/09/18 20:59 09/15/18 21:03 Last 24 Hour Vital Signs Date Time Temp Pulse Resp B/P (MAP) Pulse Ox O2 Delivery O2 Flow Rate FiO2 09/16/18 09:10 98.4 83 21 92/69 98 Nasal Cannula 3 09/16/18 09:09 75 18 97 09/16/18 09:08 75 18 95 09/16/18 08:57 76 22 88/66 98 Nasal Cannula 3 09/16/18 08:52 78 19 94/70 98 Nasal Cannula 3 09/16/18 08:47 98.3 75 18 89/67 95 Nasal Cannula 3 09/16/18 07:45 97.5 78 21 100/51 (67) 98 09/16/18 04:00 98.1 74 20 90/64 (73) 96 09/16/18 04:00 Nasal Cannula 2.0 09/16/18 03:23 84 09/16/18 00:00 79 09/16/18 00:00 Room Air 09/16/18 00:00 99.1 84 24 90/66 (74) 98 09/15/18 20:00 Room Air 09/15/18 20:00 85 09/15/18 20:00 98.9 85 22 92/65 (74) 100 09/15/18 16:00 102 09/15/18 16:00 99.5 81 21 99/70 (80) 99 09/15/18 12:00 99.0 99 23 99/70 (80) 98 09/15/18 12:00 89 09/15/18 08:18 91/53 09/15/18 08:18 79 91/53 09/15/18 08:00 97.9 79 23 91/53 (66) 98 09/15/18 08:00 74 09/15/18 04:00 Room Air 09/15/18 04:00 97.9 79 22 107/67 (80) 95 09/15/18 03:34 80 09/15/18 00:00 Room Air 09/15/18 00:00 97.9 78 24 102/58 (73) 96 09/15/18 00:00 76 09/14/18 21:16 77 110/76 09/14/18 20:00 Room Air 09/14/18 20:00 98.1 87 24 110/77 (88) 99 09/14/18 19:00 84 09/14/18 16:00 98.4 81 24 98/63 (75) 100 09/14/18 16:00 74 09/14/18 12:00 73 09/14/18 11:53 97.9 66 21 125/74 (91) 100 Intake and Output 09/15/18 09/16/18 19:00 07:00 Intake Total 250 ml Output Total 50 ml 200 ml Balance 200 ml -200 ml Intake Oral 250 ml Output Urine Total 50 ml 200 ml # Voids 2 # Bowel Movements 1 Labs Test 09/14/18 04:50 09/15/18 09:30 09/15/18 11:25 09/16/18 03:14 White Blood Count 8.4 K/UL (4.8-10.8) 8.0 K/UL (4.8-10.8) 8.1 K/UL (4.8-10.8) Red Blood Count 3.76 M/UL (4.70-6.10) 3.60 M/UL (4.70-6.10) 3.57 M/UL (4.70-6.10) Hemoglobin 12.7 G/DL (14.2-18.0) 12.1 G/DL (14.2-18.0) 12.2 G/DL (14.2-18.0) Hematocrit 40.7 % (42.0-52.0) 38.4 % (42.0-52.0) 38.5 % (42.0-52.0) Mean Corpuscular Volume 108 FL (80-99) 107 FL (80-99) 108 FL (80-99) Mean Corpuscular Hemoglobin 33.8 PG (27.0-31.0) 33.5 PG (27.0-31.0) 34.0 PG (27.0-31.0) Mean Corpuscular Hemoglobin Concent 31.2 G/DL (32.0-36.0) 31.4 G/DL (32.0-36.0) 31.5 G/DL (32.0-36.0) Red Cell Distribution Width 16.2 % (11.6-14.8) 15.6 % (11.6-14.8) 15.8 % (11.6-14.8) Platelet Count 164 K/UL (150-450) 195 K/UL (150-450) 198 K/UL (150-450) Mean Platelet Volume 9.3 FL (6.5-10.1) 9.4 FL (6.5-10.1) 9.6 FL (6.5-10.1) Neutrophils (%) (Auto) 67.5 % (45.0-75.0) 72.3 % (45.0-75.0) 73.1 % (45.0-75.0) Lymphocytes (%) (Auto) 19.6 % (20.0-45.0) 16.5 % (20.0-45.0) 17.5 % (20.0-45.0) Monocytes (%) (Auto) 11.4 % (1.0-10.0) 9.7 % (1.0-10.0) 7.9 % (1.0-10.0) Eosinophils (%) (Auto) 0.6 % (0.0-3.0) 0.5 % (0.0-3.0) 0.6 % (0.0-3.0) Basophils (%) (Auto) 0.9 % (0.0-2.0) 1.0 % (0.0-2.0) 1.0 % (0.0-2.0) Prothrombin Time 12.7 SEC (9.30-11.50) 12.9 SEC (9.30-11.50) 14.0 SEC (9.30-11.50) Prothromb Time International Ratio 1.2 (0.9-1.1) 1.2 (0.9-1.1) 1.3 (0.9-1.1) Sodium Level 143 MMOL/L (136-145) 143 MMOL/L (136-145) 141 MMOL/L (136-145) Potassium Level 3.9 MMOL/L (3.5-5.1) 4.3 MMOL/L (3.5-5.1) 4.5 MMOL/L (3.5-5.1) Chloride Level 111 MMOL/L (98-107) 110 MMOL/L (98-107) 110 MMOL/L (98-107) Carbon Dioxide Level 23 MMOL/L (21-32) 24 MMOL/L (21-32) 23 MMOL/L (21-32) Anion Gap 9 mmol/L (5-15) 9 mmol/L (5-15) 8 mmol/L (5-15) Blood Urea Nitrogen 20 mg/dL (7-18) 21 mg/dL (7-18) 25 mg/dL (7-18) Creatinine 1.1 MG/DL (0.55-1.30) 1.1 MG/DL (0.55-1.30) 1.1 MG/DL (0.55-1.30) Estimat Glomerular Filtration Rate mL/min (>60) mL/min (>60) mL/min (>60) Glucose Level 95 MG/DL (74-106) 90 MG/DL (74-106) 151 MG/DL (74-106) Calcium Level 8.8 MG/DL (8.5-10.1) 8.9 MG/DL (8.5-10.1) 8.5 MG/DL (8.5-10.1) Total Bilirubin 1.8 MG/DL (0.2-1.0) Direct Bilirubin 0.7 MG/DL (0.0-0.3) Aspartate Amino Transf (AST/SGOT) 19 U/L (15-37) Alanine Aminotransferase (ALT/SGPT) < 6 U/L (12-78) Alkaline Phosphatase 55 U/L (46-116) Total Protein 6.5 G/DL (6.4-8.2) Albumin 2.2 G/DL (3.4-5.0) Globulin 4.3 g/dL Albumin/Globulin Ratio 0.5 (1.0-2.7) Activated Partial Thromboplast Time 46 SEC (23-33) Folate 4.7 NG/ML (8.6-58.9) Height (Feet): 5 Height (Inches): 11.00 Weight (Pounds): 140 Objective Gen: normal inspection, alert, thin, Chronically Ill Head: atraumatic, normal ENT inspection, normal voice Neck: normal inspection, supple, no bony tend, limited range of motion Respiratory: normal inspection, lungs clear, normal breath sounds Cv: rrr, no edema Gi: normal inspection, normal bowel sounds, non tender Gu: no CVA tenderness Msk: normal inspection, back normal Neurologic: normal inspection, alert, responsive, speech normal Psychiatric: normal inspection, judgement/insight normal Bruce Loya MD Sep 16, 2018 10:00
--- NOTE | 2018-09-16 11:18 | NUR ---
PT NOTE Patient s/p EGD and PEG placement this morning. Inocencia RN requesting to defer PT treatment today due to effects of anesthesia and patient had episode of 15 beats of V-tach earlier. Will follow up tomorrow.
[2018-09-16] MEDS: Vitamin A&D Oint 2oz Tube TOPIC SCH ×2 (11:45→20:56)
--- NOTE | 2018-09-16 11:57 | NUR ---
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 98.4 HR 83 RR 21 B/P 92/69 3L NC O2 SAT @98% BUN 25 IS: IVF NS @ 10ML/HR LOVENOX SUBQ. PEPCID GT FEEDINGS STEP DOWN STATUS
--- NOTE | 2018-09-16 12:13 | Surgery Progress Note ---
Surgery Progress Note Subjective Additional Comments no acute events plan for peg today Objective Last 24 Hour Vital Signs Date Time Temp Pulse Resp B/P (MAP) Pulse Ox O2 Delivery O2 Flow Rate FiO2 09/16/18 09:30 99/63 09/16/18 09:10 98.4 83 21 92/69 98 Nasal Cannula 3 09/16/18 09:09 75 18 97 09/16/18 09:08 75 18 95 09/16/18 09:00 72 99/63 09/16/18 08:57 76 22 88/66 98 Nasal Cannula 3 09/16/18 08:52 78 19 94/70 98 Nasal Cannula 3 09/16/18 08:47 98.3 75 18 89/67 95 Nasal Cannula 3 09/16/18 08:00 Nasal Cannula 2.0 09/16/18 08:00 76 09/16/18 07:45 97.5 78 21 100/51 (67) 98 09/16/18 04:00 98.1 74 20 90/64 (73) 96 09/16/18 04:00 Nasal Cannula 2.0 09/16/18 03:23 84 09/16/18 00:00 79 09/16/18 00:00 Room Air 09/16/18 00:00 99.1 84 24 90/66 (74) 98 09/15/18 20:00 Room Air 09/15/18 20:00 85 09/15/18 20:00 98.9 85 22 92/65 (74) 100 09/15/18 16:00 102 09/15/18 16:00 99.5 81 21 99/70 (80) 99 I&O Intake and Output 09/15/18 09/16/18 19:00 07:00 Intake Total 250 ml Output Total 50 ml 200 ml Balance 200 ml -200 ml Intake Oral 250 ml Output Urine Total 50 ml 200 ml # Voids 2 # Bowel Movements 1 Cardiovascular: RSR Respiratory: clear, decreased breath sounds Abdomen: soft, present bowel sounds Extremities: no cyanosis, other Laboratory Tests Test 09/16/18 03:14 White Blood Count 8.1 K/UL (4.8-10.8) Red Blood Count 3.57 M/UL (4.70-6.10) L Hemoglobin 12.2 G/DL (14.2-18.0) L Hematocrit 38.5 % (42.0-52.0) L Mean Corpuscular Volume 108 FL (80-99) H Mean Corpuscular Hemoglobin 34.0 PG (27.0-31.0) H Mean Corpuscular Hemoglobin Concent 31.5 G/DL (32.0-36.0) L Red Cell Distribution Width 15.8 % (11.6-14.8) H Platelet Count 198 K/UL (150-450) Mean Platelet Volume 9.6 FL (6.5-10.1) Neutrophils (%) (Auto) 73.1 % (45.0-75.0) Lymphocytes (%) (Auto) 17.5 % (20.0-45.0) L Monocytes (%) (Auto) 7.9 % (1.0-10.0) Eosinophils (%) (Auto) 0.6 % (0.0-3.0) Basophils (%) (Auto) 1.0 % (0.0-2.0) Prothrombin Time 14.0 SEC (9.30-11.50) H Prothromb Time International Ratio 1.3 (0.9-1.1) H Sodium Level 141 MMOL/L (136-145) Potassium Level 4.5 MMOL/L (3.5-5.1) Chloride Level 110 MMOL/L (98-107) H Carbon Dioxide Level 23 MMOL/L (21-32) Anion Gap 8 mmol/L (5-15) Blood Urea Nitrogen 25 mg/dL (7-18) H Creatinine 1.1 MG/DL (0.55-1.30) Estimat Glomerular Filtration Rate mL/min (>60) Glucose Level 151 MG/DL (74-106) H Calcium Level 8.5 MG/DL (8.5-10.1) Plan Problems: (1) Decubitus skin ulcer Assessment & Plan: Pt presented on admission with multiple pressure injuries. Open DTPI noted to Sacrum .Base of wound indurated ,purple with two open areas .Wound in its entirety measures (L)9cm x (W)8.5cm. Proximal wound within base of DTPI measures (L)2cm x (W03cm .Base of wound regina with 10% slough.Inferior but in close proximity second wound within DTPI measures (L)0.8cm x (W) 0.6cm.Base of wound regina. Resolving pressure injury noted to L ischium .Base of wound pale with dry borders. DTPI noted to L trochanter .Base of wound indurated, purple with scattered striations that are maroon in colourwiti=hin base of wound.(L)12cm x (W) 7cm.Site tender when minimally palpated. L heel maroon in colour with fluctuance. Tender when minimally palpated (L) 6.5cm x (W)6cm. R heel maroon in colour with fluctuance. Tender when minimally palpated.(L) 5.5cm x (W)7cm. Darker skin tone noted to lateral/posterior R tibia. Non-blanching erythema with fluctuance noted to tips of R and L 1st metatarsals. Spouse at bedside and all skin findings addressed with spouse .Spouse has been educated of risks for further skin decline, including possibility of DTPIs becoming open wounds.Spouse has been informed of interventions being implemented to minimize risks for further skin breakdown. Albumin low. nutritional optimization Tx.Plan: Cleanse Sacral wound with Saline. Apply Therahoney to open wounds.Apply Triad Paste periwound .Cover with Optifoam drsg. Change Daily and prn. Apply Cavilon Skin Barrier to Both heels. Cover each heel with Optifoam drsg. Change every 7 days and prn. Apply Cavilon Skin Barrier to both heels. Cover each heel with Optifoam drsg. Change every 7 days and prn. APM/TRACIE mattress overlay. Reposition at least every 2hours or as tolerated. Off-load heels with pillow. (2) Abnormal LFTs Assessment & Plan: Patient identified to have a elevated total bilirubin with a elevated direct bilirubin component. AST ALT alk phos are okay otherwise. Abdominal ultrasound identified and demonstrated cholelithiasis. Etiology of elevated liver enzymes currently unknown Potential medication reaction versus component of cholelithiasis labs trending down and improved okay for diet from surgical standpoint No acute surgical intervention at this time (3) Severe protein-calorie malnutrition Assessment & Plan: peg today DAILY ESTIMATED NEEDS: Needs based on Wounds 54.5kg 30-35 kcals/kg [id number] total kcals 1.25-2 g protein/kg 68-109 g total protein Fluid per MD, on lasix NUTRITION DIAGNOSIS: Increased kcal and pro needs r/t wound healing as evidenced by pt w/ multiple wounds, including L trochanter and sacral DTPI, L ischium resolving pressure injury, refer to WC eval for complete evaluation. CURRENT DIET: Regular ms ground-> POOR PO INTAKE PO DIET RECOMMENDATIONS: Regular/ liberalized diet (texture per MUSEUM TOUR GUIDE) ENTERAL NUTRITION RECOMMENDATIONS-->> Osmolite 1.5 @50ml/hr x24 hrs to provide 1200ml, 1800 kcal, 75g pro, 914ml free H2O -> With continued poor po intake, rec NON ORAL FEEDS IF PART OF POC to better meet est needs to promote wt gain and wound healing - Obtain GI access, initiate Osmolite 1.5 @20ml/hr for 6 hrs. Advance as tolerated 10ml/hr q4-6 hrs to goal - Flush per MD. HOB Over 30 degrees ---- ADDITIONAL RECOMMENDATIONS: 1) MUSEUM TOUR GUIDE eval for appropriate texture 2) Wound care: add ANDRE BID Add VIT C 250mg daily Add MVI w/ min daily 3) Add Ensure TID w/ all meals 4) Obtain an accurate updated weight- pt adm w/ poor po + wt loss 5) *TF RECS ABOVE IF PART OF POC TO MEET EST NEEDS* Roberto Grimm Sep 16, 2018 12:13
--- NOTE | 2018-09-16 13:27 | General Progress Note ---
Assessment/Plan Problem List: (1) Cardiomyopathy ICD Codes: I42.9 - Cardiomyopathy, unspecified SNOMED: 47738457 (2) Atrial fibrillation ICD Codes: I48.91 - Unspecified atrial fibrillation SNOMED: 19971722 (3) Anemia ICD Codes: D64.9 - Anemia, unspecified SNOMED: 563019084 (4) Decubitus skin ulcer ICD Codes: L89.90 - Pressure ulcer of unspecified site, unspecified stage SNOMED: 262925458 (5) aflutter (6) Abnormal LFTs ICD Codes: R94.5 - Abnormal results of liver function studies SNOMED: 118198063 (7) Severe protein-calorie malnutrition ICD Codes: E43 - Unspecified severe protein-calorie malnutrition SNOMED: 054013806, 853187309, 446502526 Status: stable, progressing Assessment/Plan: o2 pulm tx abx cbc bmp am Subjective Constitutional: Reports: weakness Allergies: Coded Allergies: No Known Allergies (Unverified , 01/07/18) All Systems: reviewed and negative except above Subjective o2nc sleep Objective Last 24 Hour Vital Signs Date Time Temp Pulse Resp B/P (MAP) Pulse Ox O2 Delivery O2 Flow Rate FiO2 09/16/18 12:00 Nasal Cannula 2.0 09/16/18 12:00 97.7 74 20 90/52 (65) 98 09/16/18 09:30 99/63 09/16/18 09:10 98.4 83 21 92/69 98 Nasal Cannula 3 09/16/18 09:09 75 18 97 09/16/18 09:08 75 18 95 09/16/18 09:00 72 99/63 09/16/18 08:57 76 22 88/66 98 Nasal Cannula 3 09/16/18 08:52 78 19 94/70 98 Nasal Cannula 3 09/16/18 08:47 98.3 75 18 89/67 95 Nasal Cannula 3 09/16/18 08:00 Nasal Cannula 2.0 09/16/18 08:00 76 09/16/18 07:45 97.5 78 21 100/51 (67) 98 09/16/18 04:00 98.1 74 20 90/64 (73) 96 09/16/18 04:00 Nasal Cannula 2.0 09/16/18 03:23 84 09/16/18 00:00 79 09/16/18 00:00 Room Air 09/16/18 00:00 99.1 84 24 90/66 (74) 98 09/15/18 20:00 Room Air 09/15/18 20:00 85 09/15/18 20:00 98.9 85 22 92/65 (74) 100 09/15/18 16:00 102 09/15/18 16:00 99.5 81 21 99/70 (80) 99 Intake and Output 09/15/18 09/16/18 19:00 07:00 Intake Total 250 ml Output Total 50 ml 200 ml Balance 200 ml -200 ml Intake Oral 250 ml Output Urine Total 50 ml 200 ml # Voids 2 # Bowel Movements 1 Laboratory Tests 09/16/18 03:14: White Blood Count 8.1, Red Blood Count 3.57L, Hemoglobin 12.2L, Hematocrit 38.5L , Mean Corpuscular Volume 108H, Mean Corpuscular Hemoglobin 34.0H, Mean Corpuscular Hemoglobin Concent 31.5L, Red Cell Distribution Width 15.8H, Platelet Count 198, Mean Platelet Volume 9.6, Neutrophils (%) (Auto) 73.1, Lymphocytes (%) (Auto) 17.5L, Monocytes (%) (Auto) 7.9, Eosinophils (%) (Auto) 0.6, Basophils (%) (Auto) 1.0, Prothrombin Time 14.0H, Prothromb Time International Ratio 1.3H, Sodium Level 141, Potassium Level 4.5, Chloride Level 110H, Carbon Dioxide Level 23, Anion Gap 8, Blood Urea Nitrogen 25H, Creatinine 1.1, Estimat Glomerular Filtration Rate , Glucose Level 151H, Calcium Level 8.5 Height (Feet): 5 Height (Inches): 11.00 Weight (Pounds): 140 General Appearance: lethargic EENT: normal ENT inspection Neck: normal alignment Cardiovascular: normal peripheral pulses, normal rate, regular rhythm Respiratory/Chest: chest wall non-tender, lungs clear, normal breath sounds Abdomen: normal bowel sounds, non tender, soft Extremities: normal inspection Edema: no edema noted Arm (L), no edema noted Arm (R), no edema noted Leg (L), no edema noted Leg (R), no edema noted Pedal (L), no edema noted Pedal (R), no edema noted Generalized Neurologic: motor weakness Skin: normal pigmentation, warm/dry Chad Diaz DO Sep 16, 2018 13:27
--- NOTE | 2018-09-16 14:00 | NUR ---
RD ASSESSMENT & RECOMMENDATIONS SEE CARE ACTIVITY FOR COMPLETE ASSESSMENT DAILY ESTIMATED NEEDS: Needs based on Wounds 54.5kg 30-35 kcals/kg 5287-0832 total kcals 1.25-2 g protein/kg 68-109 g total protein Fluid per MD, on lasix mL/kg total fluid mLs NUTRITION DIAGNOSIS: * Increased kcal and pro needs r/t wound healing as evidenced by pt w/ multiple wounds, including L trochanter and sacral DTPI, L ischium resolving pressure injury, refer to eval for complete evaluation. * Swallowing difficulty R/T dysphagia as evidenced by pt is now s/p PEG placement, to start GTF. CURRENT TF:Glucerna 1.5 @ 45ml/hr x 24 hrs PO DIET RECOMMENDATIONS: IF ORAL GRAT IS INDICATED: Regular/ liberalized diet (texture per IMPROVEMENT SPECIALIST) ENTERAL NUTRITION RECOMMENDATIONS: Glucerna 1.5 @ 50ml/hr x24 hrs to provide 1200ml, 1800 kcal, 99g pro, 911ml free H2O - Increase goal rate to 50ml/hr. - Pt at HIGH RISK for refeeding syndrome. Initiate TF SLOWLY @ 10ml/hr x 6hrs, advance 10ml q 4-6 hrs as tolerated to goal rate. - Flush per MD. HOB Over 30 degrees ADDITIONAL RECOMMENDATIONS: 1) Obtain an accurate updated weight- pt adm w/ poor po + wt loss 2) Wound care: add ANDRE BID Add VIT C 250mg QD, ZnSO4 220mg QD x 10 days 3) Monitor lytes daily w/ TF, replete as needed- HIGH RISK FOR REFEEDING 4) Monitor BGs closely, need to continue carb controlled TF 5) Oral grat per IMPROVEMENT SPECIALIST if indicated: pt now on continuous TF, s/p PEG on 09/16 . Addendum: 09/16/18 at [address] 6) Add folic acid supplement for low folate (4.7)
[2018-09-16] MEDS ORDERED: NS 275ml ONE (14:59)
--- NOTE | 2018-09-16 16:00 | Procedure Note ---
DATE OF PROCEDURE: 09/16/2018 SURGEON: Phoenix Boo M.D. REFERRING PHYSICIAN: Dr. Inocencia Watt PROCEDURE: Upper endoscopy with PEG placement. ANESTHESIA: Per Dr. Bobo. INSTRUMENT: Olympus adult flexible upper endoscope. INDICATION: 1. Failure to thrive. 2. Dysphagia. REASON FOR PROCEDURE: The procedure, risks, benefits, and possible consequences, including hemorrhage, aspiration, perforation and infection, and alternative treatments, were explained to the patient/legal guardian by Dr. Phoenix Boo and the patient/legal guardian understood and accepted these risks. PROCEDURE IN DETAIL: After informed consent was obtained and the patient was adequately sedated, Olympus upper endoscope was advanced from the mouth into second portion of the duodenum and retroflexion was performed in the stomach. The patient had evidence of diffuse gastritis. Then, under endoscopic guidance and under sterile condition, a 20-Mohawk pull type of G-tube was successfully placed in epigastric area. The distance from the tip of the tube to skin was about 2.5 cm in size. The patient tolerated the procedure very well without complication. SUMMARY OF FINDINGS: 1. Gastritis. 2. Status post successful PEG placement. RECOMMENDATION: 1. Abdominal binder. 2. Elevate the head of the bed at all times. 3. G-tube flush. 4. G-tube care. 5. Start tube feeding later today. 6. The patient received dose of antibiotics prior to this procedure. I want to thank Dr. Inocencia Watt for this kind referral. Phoenix Boo M.D. DR: ERMIAS JOB#: [id number] CC:
--- NOTE | 2018-09-16 17:34 | Cardiac Electrophysiology PN ---
Assessment/Plan Assessment/Plan 1. Atrial flutter with rapid ventricular response 140s, better on Coreg 3.125 mg b.i.d. and Coumadin resumed after PEG. Had atrial flutter in December 2017 and would benefit from atrial flutter ablation when stabilized.In 70s now 2. Severe cardiomyopathy with EF 15%. Cardiac catheterization by me in December 2017. On Cozaar 25 mg daily, Lasix 40 mg daily, Aldactone 25 mg daily, and Coreg 3.125 mg b.i.d. ( Hold for SBP<100) 3. Mobile LV Clot On Lovenox and Coumadin resumed after PEG 4. History of DVT, on Eliquis. 5. History of hypertension. 6. Severe MAIK 0.3 7. Dysphagia, S/P PEG 8. 15 beats of nonsustained VT. Due to severe non ischemic CMP. Consider ICD specially for EF 15% DW RN, Dr Boo and Subjective Subjective No CP or SOB. EF 15%. Remained in flutter, very weak. Had 15 beats of VT. Had PEG placement today. at bedside Objective Last 24 Hour Vital Signs Date Time Temp Pulse Resp B/P (MAP) Pulse Ox O2 Delivery O2 Flow Rate FiO2 09/16/18 16:06 82 09/16/18 12:00 Nasal Cannula 2.0 09/16/18 12:00 81 09/16/18 12:00 97.7 74 20 90/52 (65) 98 09/16/18 09:30 99/63 09/16/18 09:10 98.4 83 21 92/69 98 Nasal Cannula 3 09/16/18 09:09 75 18 97 09/16/18 09:08 75 18 95 09/16/18 09:00 72 99/63 09/16/18 08:57 76 22 88/66 98 Nasal Cannula 3 09/16/18 08:52 78 19 94/70 98 Nasal Cannula 3 09/16/18 08:47 98.3 75 18 89/67 95 Nasal Cannula 3 09/16/18 08:00 Nasal Cannula 2.0 09/16/18 08:00 76 09/16/18 07:45 97.5 78 21 100/51 (67) 98 09/16/18 04:00 98.1 74 20 90/64 (73) 96 09/16/18 04:00 Nasal Cannula 2.0 7/30/19 03:23 84 09/16/18 00:00 79 09/16/18 00:00 Room Air 09/16/18 00:00 99.1 84 24 90/66 (74) 98 09/15/18 20:00 Room Air 09/15/18 20:00 85 09/15/18 20:00 98.9 85 22 92/65 (74) 100 Intake and Output 09/15/18 09/16/18 19:00 07:00 Intake Total 250 ml Output Total 50 ml 200 ml Balance 200 ml -200 ml Intake Oral 250 ml Output Urine Total 50 ml 200 ml # Voids 2 # Bowel Movements 1 Laboratory Tests Test 09/16/18 03:14 White Blood Count 8.1 K/UL (4.8-10.8) Red Blood Count 3.57 M/UL (4.70-6.10) L Hemoglobin 12.2 G/DL (14.2-18.0) L Hematocrit 38.5 % (42.0-52.0) L Mean Corpuscular Volume 108 FL (80-99) H Mean Corpuscular Hemoglobin 34.0 PG (27.0-31.0) H Mean Corpuscular Hemoglobin Concent 31.5 G/DL (32.0-36.0) L Red Cell Distribution Width 15.8 % (11.6-14.8) H Platelet Count 198 K/UL (150-450) Mean Platelet Volume 9.6 FL (6.5-10.1) Neutrophils (%) (Auto) 73.1 % (45.0-75.0) Lymphocytes (%) (Auto) 17.5 % (20.0-45.0) L Monocytes (%) (Auto) 7.9 % (1.0-10.0) Eosinophils (%) (Auto) 0.6 % (0.0-3.0) Basophils (%) (Auto) 1.0 % (0.0-2.0) Prothrombin Time 14.0 SEC (9.30-11.50) H Prothromb Time International Ratio 1.3 (0.9-1.1) H Sodium Level 141 MMOL/L (136-145) Potassium Level 4.5 MMOL/L (3.5-5.1) Chloride Level 110 MMOL/L (98-107) H Carbon Dioxide Level 23 MMOL/L (21-32) Anion Gap 8 mmol/L (5-15) Blood Urea Nitrogen 25 mg/dL (7-18) H Creatinine 1.1 MG/DL (0.55-1.30) Estimat Glomerular Filtration Rate mL/min (>60) Glucose Level 151 MG/DL (74-106) H Calcium Level 8.5 MG/DL (8.5-10.1) Objective HEAD AND NECK: Mild JVD. LUNGS: Coarse rhonchi. CARDIOVASCULAR: Irregular. S1 and S2 with no gallop or murmur. ABDOMEN: Soft.PEG in place EXTREMITIES: No pitting edema. Antonio Conde MD Sep 16, 2018 17:34
--- NOTE | 2018-09-16 19:00 | NUR ---
HAND-OFF: Report given to . MAXIMUS ADAMS.
--- NOTE | 2018-09-16 19:05 | NUR ---
NURSE NOTES: Pt report received from THEA ADAMS SACHA. pt is alert and oriented times 1 and and unable to follow simple commands. pt appears lethargic and weak. pt pupils are round and reactive to light and accommodating bilaterally. pt has a NC running 2 L, able to sat at 99%, no other resp distress noted at the moment. pt is on a playground monitor able to show A fib, no other signs symptoms of cardiac distress noted. pt has a condom cath, able to drain to gravity. pt is on tube feeding, running Glucerna 1.5, residual amount is 40cc and will continue to monitor and titrate feeding per MD order. pt bed locked and low, call light within reach, bed rails up times 3, bed armed. will continue plan of care.
--- NOTE | 2018-09-16 20:30 | NUR ---
NURSE NOTES: Medication Coreg was not given nor taken out of the Pyxis. however, eMAR shows that medication was Administered (not scanned.) Med is Non admin due to Blood pressure 84/56.
[2018-09-16] MEDS: OLANZapine 2.5mg tab ORAL SCH (20:58)
--- NOTE | 2018-09-16 21:02 | NUR ---
NURSE NOTES: Called pharmacy, they gave permission to give Enoxaparin 60mg sub q due at 09/16/18 @2100. please refer to labs with this med.
[2018-09-16] MEDS: Enoxaparin 60mg Inj SUBQ SCH (21:13)
--- NOTE | 2018-09-16 21:15 | Progress Note ---
DATE: 09/09/2018 SUBJECTIVE: The patient is in bed. No acute distress. Continues to have episodes of agitation, status post PEG placement. MENTAL STATUS EXAMINATION: The patient is alert, oriented times self. Mood is agitated and anxious. Affect is constricted. Thought content, no suicidal or homicidal ideations. ASSESSMENT: Acute encephalopathy. PLAN: We will continue the current medication. The patient Rozina Angela M.D. DR: Kyra JOB#: [id number] CC: KARELY
[2018-09-16] MEDS ORDERED: NS 250 ML IVPB ONE (22:00)
[2018-09-17] VITALS: BP 86/64
[2018-09-17 04:00] VITALS: BP 84/60
[2018-09-17 04:41] LABS: BASOPHILS % (AUTO) 0.7 % (0.0-2.0); EOSINOPHILS % (AUTO) 0.5 % (0.0-3.0); HEMATOCRIT 35.7 % (42.0-52.0); HEMOGLOBIN 11.2 G/DL (14.2-18.0); LYMPHOCYTES % (AUTO) 18.4 % (20.0-45.0); MEAN CORPUSCULAR VOLUME 108 FL (80-99); MONOCYTES % (AUTO) 7.2 % (1.0-10.0); NEUTROPHILS % (AUTO) 73.2 % (45.0-75.0); PLATELET COUNT 180 K/UL (150-450); RED BLOOD COUNT 3.32 M/UL (4.70-6.10); RED CELL DISTRIBUTION WIDTH 15.7 % (11.6-14.8); WHITE BLOOD COUNT 8.8 K/UL (4.8-10.8)
[2018-09-17 04:43] LABS: INR 1.2 (0.9-1.1)
[2018-09-17 04:56] LABS: ANION GAP 8 mmol/L (5-15); BLOOD UREA NITROGEN 24 mg/dL (7-18); CALCIUM 8.5 MG/DL (8.5-10.1); CARBON DIOXIDE 24 MMOL/L (21-32); CHLORIDE 112 MMOL/L (98-107); CREATININE 1.1 MG/DL (0.55-1.30); PHOSPHORUS 3.1 MG/DL (2.5-4.9); POTASSIUM 3.9 MMOL/L (3.5-5.1); SODIUM 144 MMOL/L (136-145)
--- NOTE | 2018-09-17 07:10 | NUR ---
HAND-OFF: Report given to THEA ADAMS. pt is in stable condition.
--- NOTE | 2018-09-17 07:25 | NUR ---
NURSE NOTES: RECEIVED BED SIDE REPORT FROM MAXIMUS ADAMS OF NOC SHIFT. RECEIVED PT WITH HOB ELEVATED 45 DEGREE AWAKE AND ALERT TO NAME ,ABLE TO FOLLOW SIMPLE COMMANDS.PT TOLERATING WELL GLUCERNA 1.52 40cc/hr,NO RESIDUAL NOTED AT THIS TIME.FULL BODY ASSESSMENT DONE.PT REPOSITIONED IN BED Q 2HRS TO PROVIDE COMFORT AND TO PREVENT FURTHER SKIN BREAK DOWN.PT AT BED SIDE AT ALL THE TIME.ALL NEEDS ATTENDED AND ANTICIPATED. WILL CONT TO MONITOR.
[2018-09-17 08:00] VITALS: BP 123/78
--- NOTE | 2018-09-17 09:01 | Diagnostic Imaging Report ---
APPROVED REPORT CPT Code: 69281 Present Symptoms Comments: Swelling of left forearm LEFT UPPER EXTREMITY (Deep venous system): Imaging reveals patency of the internal jugular, subclavian, axillary and brachial veins. Doppler indicates normal spontaneous flow within these venous segments. Note left internal jugular vein is very small.
--- NOTE | 2018-09-17 09:49 | General Progress Note ---
Assessment/Plan Problem List: (1) Cardiomyopathy ICD Codes: I42.9 - Cardiomyopathy, unspecified SNOMED: 58729734 (2) Atrial fibrillation ICD Codes: I48.91 - Unspecified atrial fibrillation SNOMED: 40558671 (3) Anemia ICD Codes: D64.9 - Anemia, unspecified SNOMED: 305545864 (4) Decubitus skin ulcer ICD Codes: L89.90 - Pressure ulcer of unspecified site, unspecified stage SNOMED: 140809905 (5) aflutter (6) Abnormal LFTs ICD Codes: R94.5 - Abnormal results of liver function studies SNOMED: 896653461 (7) Severe protein-calorie malnutrition ICD Codes: E43 - Unspecified severe protein-calorie malnutrition SNOMED: 160870555, 310620245, 617072021 Status: stable, progressing Assessment/Plan: o2 pulm tx abx dc if clear Subjective Constitutional: Reports: weakness Allergies: Coded Allergies: No Known Allergies (Unverified , 01/07/18) All Systems: reviewed and negative except above Subjective o2nc sleep Objective Last 24 Hour Vital Signs Date Time Temp Pulse Resp B/P (MAP) Pulse Ox O2 Delivery O2 Flow Rate FiO2 09/17/18 04:00 98.2 86 20 84/60 (68) 100 09/17/18 04:00 Nasal Cannula 2.0 09/17/18 03:53 84 09/17/18 00:00 98.6 75 20 86/64 (71) 99 09/17/18 00:00 Nasal Cannula 2.0 09/16/18 23:25 85 09/16/18 20:30 75 84/58 09/16/18 20:00 98.0 75 18 87/56 (66) 99 09/16/18 20:00 Nasal Cannula 2.0 09/16/18 19:37 84 09/16/18 16:06 82 09/16/18 16:00 98.1 86 18 90/69 (76) 98 09/16/18 16:00 Nasal Cannula 2.0 09/16/18 12:00 Nasal Cannula 2.0 09/16/18 12:00 81 09/16/18 12:00 97.7 74 20 90/52 (65) 98 Intake and Output 09/16/18 09/17/18 19:00 07:00 Intake Total 510 ml 800 ml Output Total 200 ml 300 ml Balance 310 ml 500 ml Free Water 200 ml 150 ml IV Total 100 ml 250 ml Tube Feeding 210 ml 400 ml Output Urine Total 200 ml 300 ml # Voids 2 Laboratory Tests 09/17/18 03:10: White Blood Count 8.8, Red Blood Count 3.32L, Hemoglobin 11.2L, Hematocrit 35.7L , Mean Corpuscular Volume 108H, Mean Corpuscular Hemoglobin 33.6H, Mean Corpuscular Hemoglobin Concent 31.2L, Red Cell Distribution Width 15.7H, Platelet Count 180, Mean Platelet Volume 8.6, Neutrophils (%) (Auto) 73.2, Lymphocytes (%) (Auto) 18.4L, Monocytes (%) (Auto) 7.2, Eosinophils (%) (Auto) 0.5, Basophils (%) (Auto) 0.7, Prothrombin Time 12.3H, Prothromb Time International Ratio 1.2H, Sodium Level 144, Potassium Level 3.9, Chloride Level 112H, Carbon Dioxide Level 24, Anion Gap 8, Blood Urea Nitrogen 24H, Creatinine 1.1, Estimat Glomerular Filtration Rate , Glucose Level 122H, Calcium Level 8.5 , Phosphorus Level 3.1, Magnesium Level 1.7L Height (Feet): 5 Height (Inches): 11.00 Weight (Pounds): 141 General Appearance: lethargic EENT: normal ENT inspection Neck: normal alignment Cardiovascular: normal peripheral pulses, normal rate, regular rhythm Respiratory/Chest: chest wall non-tender, lungs clear, normal breath sounds Abdomen: normal bowel sounds, non tender, soft Extremities: normal inspection Edema: no edema noted Arm (L), no edema noted Arm (R), no edema noted Leg (L), no edema noted Leg (R), no edema noted Pedal (L), no edema noted Pedal (R), no edema noted Generalized Neurologic: responsive, motor weakness Skin: normal pigmentation, warm/dry Chad Diaz DO Sep 17, 2018 09:49
--- NOTE | 2018-09-17 10:14 | GI Progress Note ---
Assessment/Plan Problems: (1) Encounter for PEG (percutaneous endoscopic gastrostomy) ICD Codes: Z43.1 - Encounter for attention to gastrostomy SNOMED: 591038216, 775208182 (2) Severe protein-calorie malnutrition ICD Codes: E43 - Unspecified severe protein-calorie malnutrition SNOMED: 483487244, 327403761, 880615951 (3) Abnormal LFTs ICD Codes: R94.5 - Abnormal results of liver function studies SNOMED: 490263712 (4) Anemia ICD Codes: D64.9 - Anemia, unspecified SNOMED: 386814918 Status: stable Status Narrative Discussed with Dr. Boo. Assessment/Plan SUMMARY OF FINDINGS: 1. Gastritis. 2. Status post successful PEG placement. RECOMMENDATION: 1. Abdominal binder. 2. Elevate the head of the bed at all times. 3. G-tube flush. 4. G-tube care. 5. GTFs per RD prn transfusions reglan for GI motility ppi follow labs The patient was seen and examined at bedside and all new and available data was reviewed in the patients chart. I agree with the above findings, impression and plan. (Patient seen earlier today. Signature stamp does not reflect patient encounter time.). - Phoenix Boo MD Subjective Subjective limited Objective Last 24 Hour Vital Signs Date Time Temp Pulse Resp B/P (MAP) Pulse Ox O2 Delivery O2 Flow Rate FiO2 09/17/18 04:00 98.2 86 20 84/60 (68) 100 09/17/18 04:00 Nasal Cannula 2.0 09/17/18 03:53 84 09/17/18 00:00 98.6 75 20 86/64 (71) 99 09/17/18 00:00 Nasal Cannula 2.0 09/16/18 23:25 85 09/16/18 20:30 75 84/58 09/16/18 20:00 98.0 75 18 87/56 (66) 99 09/16/18 20:00 Nasal Cannula 2.0 09/16/18 19:37 84 09/16/18 16:06 82 09/16/18 16:00 98.1 86 18 90/69 (76) 98 09/16/18 16:00 Nasal Cannula 2.0 09/16/18 12:00 Nasal Cannula 2.0 09/16/18 12:00 81 09/16/18 12:00 97.7 74 20 90/52 (65) 98 Intake and Output 09/16/18 09/17/18 19:00 07:00 Intake Total 510 ml 800 ml Output Total 200 ml 300 ml Balance 310 ml 500 ml Free Water 200 ml 150 ml IV Total 100 ml 250 ml Tube Feeding 210 ml 400 ml Output Urine Total 200 ml 300 ml # Voids 2 Laboratory Tests Test 09/17/18 03:10 White Blood Count 8.8 K/UL (4.8-10.8) Red Blood Count 3.32 M/UL (4.70-6.10) L Hemoglobin 11.2 G/DL (14.2-18.0) L Hematocrit 35.7 % (42.0-52.0) L Mean Corpuscular Volume 108 FL (80-99) H Mean Corpuscular Hemoglobin 33.6 PG (27.0-31.0) H Mean Corpuscular Hemoglobin Concent 31.2 G/DL (32.0-36.0) L Red Cell Distribution Width 15.7 % (11.6-14.8) H Platelet Count 180 K/UL (150-450) Mean Platelet Volume 8.6 FL (6.5-10.1) Neutrophils (%) (Auto) 73.2 % (45.0-75.0) Lymphocytes (%) (Auto) 18.4 % (20.0-45.0) L Monocytes (%) (Auto) 7.2 % (1.0-10.0) Eosinophils (%) (Auto) 0.5 % (0.0-3.0) Basophils (%) (Auto) 0.7 % (0.0-2.0) Prothrombin Time 12.3 SEC (9.30-11.50) H Prothromb Time International Ratio 1.2 (0.9-1.1) H Sodium Level 144 MMOL/L (136-145) Potassium Level 3.9 MMOL/L (3.5-5.1) Chloride Level 112 MMOL/L (98-107) H Carbon Dioxide Level 24 MMOL/L (21-32) Anion Gap 8 mmol/L (5-15) Blood Urea Nitrogen 24 mg/dL (7-18) H Creatinine 1.1 MG/DL (0.55-1.30) Estimat Glomerular Filtration Rate mL/min (>60) Glucose Level 122 MG/DL (74-106) H Calcium Level 8.5 MG/DL (8.5-10.1) Phosphorus Level 3.1 MG/DL (2.5-4.9) Magnesium Level 1.7 MG/DL (1.8-2.4) L Height (Feet): 5 Height (Inches): 11.00 Weight (Pounds): 141 General Appearance: no apparent distress Cardiovascular: normal rate Respiratory/Chest: normal breath sounds, no respiratory distress Abdominal Exam: normal bowel sounds, non tender, soft, GT site - c/d/i Extremities: non-tender Juarez Mera NP Sep 17, 2018 10:14
--- NOTE | 2018-09-17 10:30 | NUR ---
NURSE NOTES:WOUND CARE FOLLOW-UP NOTES:Darker skin tone without erythema,induration or fluctuance noted to sacrum with two wounds noted to R and L buttocks within base of wound. Site tender per pt. Sacral area measures (L)7cm x (W)6cm. R buttocks wound is moist and viable (L)2cm x (W)1.3cm.Base of wound L buttocks is moist and viable (L)0.8cm x (W)0.7cm. DTPI L trochanter resolving. Dry eschar noted, Site non-tender when minimally palpated. (L)4cm x (W)10.5cm. Periwound without erythema or induration. R and L heels are boggy but blanchable. Pt denied tenderness when both heels palpated. GT site clean and intact. Wound Tx orders are effective and continued as ordered. All wound prevention protocols continued as implemented. Tx.Plan: Apply Moisture Barrier Paste to sacrum,R and L buttocks. Cover with Optifoam drsg. Change every 3 days and prn. Apply Cavilon Skin Barrier to both heels. Cover each heel with Optifoam drsg. Change every 7 days and prn. APM/TRACIE Mattress. Off-load heels with Pillow. Reposition at least every 2hours or as tolerated.
[2018-09-17] MEDS: Losartan 25mg tab ORAL SCH (10:54)
[2018-09-17] MEDS: Furosemide 40mg tab ORAL SCH (10:55)
[2018-09-17] MEDS: Spironolactone 25mg tab ORAL SCH (10:56)
[2018-09-17] MEDS: Enoxaparin 60mg Inj SUBQ SCH ×2 (10:58→20:24)
[2018-09-17] MEDS: Vitamin A&D Oint 2oz Tube TOPIC SCH ×2 (10:59→20:22)
--- NOTE | 2018-09-17 13:15 | NUR ---
NURSE NOTES: PT LEFT THE UNIT VIA GURNEY ON STABLE CONDITION TO RADIOLOGY DPT FOR VIDEO SWALLOWING STUDY AND ACCOMPANIED BY PT . WILL CONT TO MONITOR.
--- NOTE | 2018-09-17 13:40 | NUR ---
PT NOTES: Unable to see for PT interventions as pt out for Video swallow. Will check back if schedule permits.
--- NOTE | 2018-09-17 14:05 | NUR ---
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 98.2 HR 102 RR 20 B/P 123/78 2L NC O SAT @ 98% BUN 24 MG 1.7 IS: LOVENOX SUBC CAZAAR GT COREG GT SWALLOW EVAL DCP STEP DOWN STATUS
--- NOTE | 2018-09-17 14:07 | NUR ---
BIT GRINDER NOTES PT ACCEPTED TO [facility] ROOM 105 BED A. MADE AWARE. AWAITING OFFICIAL ORDER TO BE CHANGED TO SNF.
--- NOTE | 2018-09-17 14:17 | Hematology/Onc Progress Note ---
Assessment/Plan Assessment/Plan Assessment and Recs: # Thrombocytopenia - most likely related to PNA infection. 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 --> Anemia w/u has been reviewed. Ferritin at 450. --> Will trend CBC as needed. --> hgb goal >7. Transfuse prn. 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 CXR has been reviewed. --> May need abx --> pulm eval prn # Myocardial infarction. --> Cardiac cath [address] Conde # Atrial flutter with rapid ventricular response. --> per cards # Psych disorder -- as per psych recs Greatly appreciate consultation! Subjective Hematologic/Lymphatic: Reports: anemia Allergies: Coded Allergies: No Known Allergies (Unverified , 01/07/18) All Systems: reviewed and negative except above Subjective 09/11: no fevers noted, no chills, bp is low, remains on eliquis and seen by cards 09/12: no bleeding, no chills, no night sweats, is on lovenox and coumadin, inr goal 2-3 09/13: no events, inr higher, no f/c, no bleeding 09/14: labs have been reviewed, improved, arousable in am, by bedside 09/15: no events, no bleeding, comfortable, sleeping, labs reviewed 09/16: peg successfully was placed, seen by Vojacques, in room as well 09/17: no overnight events, in stable condition, swallow study for today, Objective Objective Current Medications Medications (Trade) Dose Ordered Sig/Fritz Route PRN Reason Start Time Stop Time Status Last Admin Dose Admin Acetaminophen (Tylenol) 650 mg Q6H PRN ORAL Mild Pain/Temp > 100.5 09/11/18 19:45 10/11/18 19:44 Carvedilol (Coreg) 3.125 mg EVERY 12 HOURS ORAL 09/11/18 21:00 10/09/18 20:59 09/17/18 10:54 Enoxaparin Sodium (Lovenox) 60 mg Q12HR SUBQ 09/16/18 21:00 10/16/18 20:59 09/17/18 10:58 Famotidine (Pepcid) 20 mg DAILY ORAL 09/10/18 09:00 10/10/18 08:59 09/17/18 10:55 Furosemide (Lasix) 40 mg DAILY ORAL 09/10/18 09:00 10/10/18 08:59 09/17/18 10:55 Losartan Potassium (Cozaar) 25 mg DAILY ORAL 09/12/18 09:00 10/10/18 08:59 09/17/18 10:54 Olanzapine (ZyPREXA) 2.5 mg BEDTIME ORAL 09/11/18 21:00 10/11/18 20:59 09/16/18 20:58 Spironolactone (Aldactone) 25 mg DAILY ORAL 09/14/18 09:00 10/10/18 08:59 09/17/18 10:56 Vitamin A/Vitamin D (A & D Oint) 1 applic EVERY 12 HOURS TOPIC 09/09/18 21:00 10/09/18 20:59 09/17/18 10:59 Last 24 Hour Vital Signs Date Time Temp Pulse Resp B/P (MAP) Pulse Ox O2 Delivery O2 Flow Rate FiO2 09/17/18 12:00 85 09/17/18 10:54 123/78 09/17/18 10:54 102 123/78 09/17/18 08:00 Nasal Cannula 2.0 09/17/18 08:00 107 09/17/18 08:00 98.2 102 20 123/78 (93) 100 09/17/18 07:43 97 Nasal Cannula 2.0 28 09/17/18 04:00 98.2 86 20 84/60 (68) 100 09/17/18 04:00 Nasal Cannula 2.0 09/17/18 03:53 84 09/17/18 00:00 98.6 75 20 86/64 (71) 99 09/17/18 00:00 Nasal Cannula 2.0 09/16/18 23:25 85 09/16/18 20:30 75 84/58 09/16/18 20:00 98.0 75 18 87/56 (66) 99 09/16/18 20:00 Nasal Cannula 2.0 09/16/18 19:37 84 09/16/18 16:06 82 09/16/18 16:00 98.1 86 18 90/69 (76) 98 09/16/18 16:00 Nasal Cannula 2.0 09/16/18 12:00 Nasal Cannula 2.0 09/16/18 12:00 81 09/16/18 12:00 97.7 74 20 90/52 (65) 98 09/16/18 09:30 99/63 09/16/18 09:10 98.4 83 21 92/69 98 Nasal Cannula 3 09/16/18 09:09 75 18 97 09/16/18 09:08 75 18 95 09/16/18 09:00 72 99/63 09/16/18 08:57 76 22 88/66 98 Nasal Cannula 3 09/16/18 08:52 78 19 94/70 98 Nasal Cannula 3 09/16/18 08:47 98.3 75 18 89/67 95 Nasal Cannula 3 09/16/18 08:00 Nasal Cannula 2.0 09/16/18 08:00 76 09/16/18 07:45 97.5 78 21 100/51 (67) 98 09/16/18 04:00 98.1 74 20 90/64 (73) 96 09/16/18 04:00 Nasal Cannula 2.0 09/16/18 03:23 84 09/16/18 00:00 79 09/16/18 00:00 Room Air 09/16/18 00:00 99.1 84 24 90/66 (74) 98 09/15/18 20:00 Room Air 09/15/18 20:00 85 09/15/18 20:00 98.9 85 22 92/65 (74) 100 09/15/18 16:00 102 7/29/19 16:00 99.5 81 21 99/70 (80) 99 Intake and Output 09/16/18 09/17/18 19:00 07:00 Intake Total 510 ml 840 ml Output Total 200 ml 300 ml Balance 310 ml 540 ml Free Water 200 ml 150 ml IV Total 100 ml 250 ml Tube Feeding 210 ml 440 ml Output Urine Total 200 ml 300 ml # Voids 2 Labs Test 09/15/18 09:30 09/15/18 11:25 09/16/18 03:14 09/17/18 03:10 Sodium Level 143 MMOL/L (136-145) 141 MMOL/L (136-145) 144 MMOL/L (136-145) Potassium Level 4.3 MMOL/L (3.5-5.1) 4.5 MMOL/L (3.5-5.1) 3.9 MMOL/L (3.5-5.1) Chloride Level 110 MMOL/L (98-107) 110 MMOL/L (98-107) 112 MMOL/L (98-107) Carbon Dioxide Level 24 MMOL/L (21-32) 23 MMOL/L (21-32) 24 MMOL/L (21-32) Anion Gap 9 mmol/L (5-15) 8 mmol/L (5-15) 8 mmol/L (5-15) Blood Urea Nitrogen 21 mg/dL (7-18) 25 mg/dL (7-18) 24 mg/dL (7-18) Creatinine 1.1 MG/DL (0.55-1.30) 1.1 MG/DL (0.55-1.30) 1.1 MG/DL (0.55-1.30) Estimat Glomerular Filtration Rate mL/min (>60) mL/min (>60) mL/min (>60) Glucose Level 90 MG/DL (74-106) 151 MG/DL (74-106) 122 MG/DL (74-106) Calcium Level 8.9 MG/DL (8.5-10.1) 8.5 MG/DL (8.5-10.1) 8.5 MG/DL (8.5-10.1) Total Bilirubin 1.8 MG/DL (0.2-1.0) Direct Bilirubin 0.7 MG/DL (0.0-0.3) Aspartate Amino Transf (AST/SGOT) 19 U/L (15-37) Alanine Aminotransferase (ALT/SGPT) < 6 U/L (12-78) Alkaline Phosphatase 55 U/L (46-116) Total Protein 6.5 G/DL (6.4-8.2) Albumin 2.2 G/DL (3.4-5.0) Globulin 4.3 g/dL Albumin/Globulin Ratio 0.5 (1.0-2.7) White Blood Count 8.0 K/UL (4.8-10.8) 8.1 K/UL (4.8-10.8) 8.8 K/UL (4.8-10.8) Red Blood Count 3.60 M/UL (4.70-6.10) 3.57 M/UL (4.70-6.10) 3.32 M/UL (4.70-6.10) Hemoglobin 12.1 G/DL (14.2-18.0) 12.2 G/DL (14.2-18.0) 11.2 G/DL (14.2-18.0) Hematocrit 38.4 % (42.0-52.0) 38.5 % (42.0-52.0) 35.7 % (42.0-52.0) Mean Corpuscular Volume 107 FL (80-99) 108 FL (80-99) 108 FL (80-99) Mean Corpuscular Hemoglobin 33.5 PG (27.0-31.0) 34.0 PG (27.0-31.0) 33.6 PG (27.0-31.0) Mean Corpuscular Hemoglobin Concent 31.4 G/DL (32.0-36.0) 31.5 G/DL (32.0-36.0) 31.2 G/DL (32.0-36.0) Red Cell Distribution Width 15.6 % (11.6-14.8) 15.8 % (11.6-14.8) 15.7 % (11.6-14.8) Platelet Count 195 K/UL (150-450) 198 K/UL (150-450) 180 K/UL (150-450) Mean Platelet Volume 9.4 FL (6.5-10.1) 9.6 FL (6.5-10.1) 8.6 FL (6.5-10.1) Neutrophils (%) (Auto) 72.3 % (45.0-75.0) 73.1 % (45.0-75.0) 73.2 % (45.0-75.0) Lymphocytes (%) (Auto) 16.5 % (20.0-45.0) 17.5 % (20.0-45.0) 18.4 % (20.0-45.0) Monocytes (%) (Auto) 9.7 % (1.0-10.0) 7.9 % (1.0-10.0) 7.2 % (1.0-10.0) Eosinophils (%) (Auto) 0.5 % (0.0-3.0) 0.6 % (0.0-3.0) 0.5 % (0.0-3.0) Basophils (%) (Auto) 1.0 % (0.0-2.0) 1.0 % (0.0-2.0) 0.7 % (0.0-2.0) Prothrombin Time 12.9 SEC (9.30-11.50) 14.0 SEC (9.30-11.50) 12.3 SEC (9.30-11.50) Prothromb Time International Ratio 1.2 (0.9-1.1) 1.3 (0.9-1.1) 1.2 (0.9-1.1) Activated Partial Thromboplast Time 46 SEC (23-33) Folate 4.7 NG/ML (8.6-58.9) Phosphorus Level 3.1 MG/DL (2.5-4.9) Magnesium Level 1.7 MG/DL (1.8-2.4) Height (Feet): 5 Height (Inches): 11.00 Weight (Pounds): 141 Objective Gen: normal inspection, alert, thin, Chronically Ill Head: atraumatic, normal ENT inspection, normal voice Neck: normal inspection, supple, no bony tend, limited range of motion Respiratory: normal inspection, lungs clear, normal breath sounds, NC+ Cv: rrr, no edema Gi: normal inspection, normal bowel sounds, non tender, PEG+ Gu: no CVA tenderness Msk: normal inspection, back normal Neurologic: normal inspection, alert, responsive, speech normal Psychiatric: normal inspection, judgement/insight normal Bruce Loya MD Sep 17, 2018 14:17
--- NOTE | 2018-09-17 14:20 | NUR ---
SWALLOW/SPEECH THERAPY NOTE: MODIFIED BARIUM SWALLOW STUDY COMPLETED WITH FULL REPORT TO FOLLOW IN [facility] ACTIVITY SECTION. 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 NO ASPIRATION NOR SIGNIFICANT LARYNGEAL PENETRATION BUT HAS RISK IF PRECAUTIONS ARE NOT USED. PLAN: CONTINUE WITH NONORAL FEEDINGS BUT INITIATE CARDIAC LIQUIFIED PUREED LIKE NECTAR THICK SOUP CONSISTENCY WITH THIN LIQUIDS AND POSTED ASPIRATION AND REFLUX PRECAUTIONS FOR QUALITY OF LIFE PURPOSES AND PER PATIENT'S AND FAMILY REQUESTS. D/W STAFF AND PATIENT/FAMILY Addendum: 09/18/18 at 1316 by DMITRY GARCIA SERVICE DESK ASSOCIATE UPDATED REPORT SUMMARY MODIFIED BARIUM SWALLOW STUDY COMPLETED WITH FULL REPORT TO FOLLOW IN [facility] ACTIVITY SECTION. ? XEROSTOMIA (HAD VERY DRY AND STRINGY PHLEGM THAT NEEDED TO BE REMOVED FROM MOUTH THAT HE WAS CHEWING ON INITIALLY). TRIALS OF THIN LIQUIDS (TSP, TSP, CUP, STRAW SEQUENTIAL) NECTAR THICK LIQUIDS (TSP, CUP, STRAW SEQUENTIAL), HONEY THICK LIQUID (TSP), PUREED (TSP). NOT GIVEN MASTICATED SOLIDS (NO MOLARS AND TAKES A LONG TIME WITH PUREED). 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 NO ASPIRATION NOR SIGNIFICANT LARYNGEAL PENETRATION BUT HAS RISK IF PRECAUTIONS ARE NOT USED. THIN LIQUIDS WARMUP SWALLOW TSP MAY HVE HAD TRACE ASP WITH THROAT CLEAR BUT DIFFICULT TO VIEW AND DUE TO DELAYED SWALLOW. 2ND TSP AND CUP NO ASP/PENETRATION BUT ON CUP WASH AFTER PUREED AND STRAW SEQUENTIAL HAD TRACE PENETRATION ABOVE VOCAL FOLDS WITH EJECTION DUE TO LATE SWALLOW AND CLOSURE OF LARYNEGEAL VESTIBULE. HAD RISK OF ASPIRATION AND PENETRATION AFTER THE SWALLOW DUE TO OROPHARYNGEAL DYSMOTILITY AND MILD RESIDUE (DELAYED 2ND SWALLOW TO CLEAR THIS AND NEEDED SOME CUES) NECTAR THICK LIQUIDS (TSP,CUP,STRAW SEQUENTIAL) AND HONEY THICK LIQUIDS TSP, AND PUREED TSP HAD NO ASPIRATION/PENETRATION. HAD ASP/PENETRATION RISK AFTER THE SWALLOW DUE TO OROPHARYNGEAL DYSMOTILITY AND MILD BUT MORE THAN WITH THIN LIQ (NEEDED 2ND SWALLOW TO CLEAR AND IT WAS CUED AND DELAYED). DEFICITS AND COMPONENTS NOTED THAT INCREASED ASP/PENETRATION RISK AND REDUCED SWALLOW EFFICIENCY: Oral Impairment Lip Closure left side (also cued him to close mouth, had it open) Tongue Control Bolus transport/lingual motion Honey 9 sec LIANA Pureed 12 sec LIANA Oral residue and reduced sensation may have dry mouth xerostomia as he has stick saliva Initiation pharyngeal swallow Pharyngeal Impairment Laryngeal elevation (LE) Ant. hyoid excursion (AHE) Late laryngeal vestibule closure Pharyngeal stripping wave Epiglottic movement (partial and stays horizontal seems bigger) Tongue base retraction Pharyngeal residue Decreased pharyngeal sensation ESOPHAGEAL PHASE GROSSLY FUNCTIONAL BUT LIMITED LATERAL VIEW DUE TO SHOULDER OBSTRUCTION. BENEFITS FROM SMALL AMOUNTS, LIQUID WASH, CHIN TUCK OR NEUTRAL, EXTRA HARD SWALLOWS, REST OF SOB, SMALL SIP OR TSP (ESPECIALLY WITH THIN LIQUIDS, NO SEQUENTIAL SIPS. DID A SPONTANEOUS EFFORTFUL BREATH HOLD WITH SOME SEQUENTIAL SWALLOWS. PLAN: FOR QUALITY OF LIFE, CONSIDER ORAL GRATIFICATION OF LIQUIFIED PUREED LIKE NECTAR THICK SOUP CONSISTENCY OK TO HAVE THIN LIQUIDS WITH POSTED ASPIRATION AND REFLUX PRECAUTIONS AND 1 TO 1 FEEDING. Slowly decrease tube feedings as oral intake increases CONTINUE WITH NONORAL FEEDINGS AND ORAL CARE (BRUSH AND FLOSS TEETH) SKILLED DYSPHAGIA MANAGEMENT AND TX AND COG-COM EVAL/TX EDUCATED/TRAINED STAFF, PATIENT, AND HIS IN POSTED ASPIRATION/REFLUX PRECAUTIONS AND SWALLOW STRATEGIES. CONTINUE WITH NONORAL FEEDINGS BUT INITIATE CARDIAC LIQUIFIED PUREED LIKE NECTAR THICK SOUP CONSISTENCY WITH THIN LIQUIDS AND POSTED ASPIRATION AND REFLUX PRECAUTIONS FOR QUALITY OF LIFE PURPOSES AND PER PATIENT'S AND FAMILY REQUESTS. D/W STAFF AND PATIENT/FAMILY
--- NOTE | 2018-09-17 14:27 | Surgery Progress Note ---
Surgery Progress Note Subjective Additional Comments s/p peg doing okay no acute events now can get proper nutrition wound care Objective Last 24 Hour Vital Signs Date Time Temp Pulse Resp B/P (MAP) Pulse Ox O2 Delivery O2 Flow Rate FiO2 09/17/18 12:00 85 09/17/18 10:54 123/78 09/17/18 10:54 102 123/78 09/17/18 08:00 Nasal Cannula 2.0 09/17/18 08:00 107 09/17/18 08:00 98.2 102 20 123/78 (93) 100 09/17/18 07:43 97 Nasal Cannula 2.0 28 09/17/18 04:00 98.2 86 20 84/60 (68) 100 09/17/18 04:00 Nasal Cannula 2.0 09/17/18 03:53 84 09/17/18 00:00 98.6 75 20 86/64 (71) 99 09/17/18 00:00 Nasal Cannula 2.0 09/16/18 23:25 85 09/16/18 20:30 75 84/58 09/16/18 20:00 98.0 75 18 87/56 (66) 99 09/16/18 20:00 Nasal Cannula 2.0 09/16/18 19:37 84 09/16/18 16:06 82 09/16/18 16:00 98.1 86 18 90/69 (76) 98 09/16/18 16:00 Nasal Cannula 2.0 I&O Intake and Output 09/16/18 09/17/18 19:00 07:00 Intake Total 510 ml 840 ml Output Total 200 ml 300 ml Balance 310 ml 540 ml Free Water 200 ml 150 ml IV Total 100 ml 250 ml Tube Feeding 210 ml 440 ml Output Urine Total 200 ml 300 ml # Voids 2 Dressing: saturated Wound: clean Cardiovascular: RSR Respiratory: clear Abdomen: soft, flat, present bowel sounds, non-distended Extremities: no cyanosis Laboratory Tests Test 09/17/18 03:10 White Blood Count 8.8 K/UL (4.8-10.8) Red Blood Count 3.32 M/UL (4.70-6.10) L Hemoglobin 11.2 G/DL (14.2-18.0) L Hematocrit 35.7 % (42.0-52.0) L Mean Corpuscular Volume 108 FL (80-99) H Mean Corpuscular Hemoglobin 33.6 PG (27.0-31.0) H Mean Corpuscular Hemoglobin Concent 31.2 G/DL (32.0-36.0) L Red Cell Distribution Width 15.7 % (11.6-14.8) H Platelet Count 180 K/UL (150-450) Mean Platelet Volume 8.6 FL (6.5-10.1) Neutrophils (%) (Auto) 73.2 % (45.0-75.0) Lymphocytes (%) (Auto) 18.4 % (20.0-45.0) L Monocytes (%) (Auto) 7.2 % (1.0-10.0) Eosinophils (%) (Auto) 0.5 % (0.0-3.0) Basophils (%) (Auto) 0.7 % (0.0-2.0) Prothrombin Time 12.3 SEC (9.30-11.50) H Prothromb Time International Ratio 1.2 (0.9-1.1) H Sodium Level 144 MMOL/L (136-145) Potassium Level 3.9 MMOL/L (3.5-5.1) Chloride Level 112 MMOL/L (98-107) H Carbon Dioxide Level 24 MMOL/L (21-32) Anion Gap 8 mmol/L (5-15) Blood Urea Nitrogen 24 mg/dL (7-18) H Creatinine 1.1 MG/DL (0.55-1.30) Estimat Glomerular Filtration Rate mL/min (>60) Glucose Level 122 MG/DL (74-106) H Calcium Level 8.5 MG/DL (8.5-10.1) Phosphorus Level 3.1 MG/DL (2.5-4.9) Magnesium Level 1.7 MG/DL (1.8-2.4) L Plan Problems: (1) Decubitus skin ulcer Assessment & Plan: Pt presented on admission with multiple pressure injuries. Open DTPI noted to Sacrum .Base of wound indurated ,purple with two open areas .Wound in its entirety measures (L)9cm x (W)8.5cm. Proximal wound within base of DTPI measures (L)2cm x (W03cm .Base of wound regina with 10% slough.Inferior but in close proximity second wound within DTPI measures (L)0.8cm x (W) 0.6cm.Base of wound regina. Resolving pressure injury noted to L ischium .Base of wound pale with dry borders. DTPI noted to L trochanter .Base of wound indurated, purple with scattered striations that are maroon in colourwiti=hin base of wound.(L)12cm x (W) 7cm.Site tender when minimally palpated. L heel maroon in colour with fluctuance. Tender when minimally palpated (L) 6.5cm x (W)6cm. R heel maroon in colour with fluctuance. Tender when minimally palpated.(L) 5.5cm x (W)7cm. Darker skin tone noted to lateral/posterior R tibia. Non-blanching erythema with fluctuance noted to tips of R and L 1st metatarsals. Spouse at bedside and all skin findings addressed with spouse .Spouse has been educated of risks for further skin decline, including possibility of DTPIs becoming open wounds.Spouse has been informed of interventions being implemented to minimize risks for further skin breakdown. Albumin low. nutritional optimization Tx.Plan: Cleanse Sacral wound with Saline. Apply Therahoney to open wounds.Apply Triad Paste periwound .Cover with Optifoam drsg. Change Daily and prn. Apply Cavilon Skin Barrier to Both heels. Cover each heel with Optifoam drsg. Change every 7 days and prn. Apply Cavilon Skin Barrier to both heels. Cover each heel with Optifoam drsg. Change every 7 days and prn. APM/TRACIE mattress overlay. Reposition at least every 2hours or as tolerated. Off-load heels with pillow. (2) Abnormal LFTs Assessment & Plan: Patient identified to have a elevated total bilirubin with a elevated direct bilirubin component. AST ALT alk phos are okay otherwise. Abdominal ultrasound identified and demonstrated cholelithiasis. Etiology of elevated liver enzymes currently unknown Potential medication reaction versus component of cholelithiasis labs trending down and improved okay for diet from surgical standpoint No acute surgical intervention at this time d/c planning now cont above care for d/c at half-way feeds as noted (3) Severe protein-calorie malnutrition Assessment & Plan: s/p peg DAILY ESTIMATED NEEDS: Needs based on Wounds 54.5kg 30-35 kcals/kg 1007-0266 total kcals 1.25-2 g protein/kg 68-109 g total protein Fluid per MD, on lasix mL/kg total fluid mLs NUTRITION DIAGNOSIS: * Increased kcal and pro needs r/t wound healing as evidenced by pt w/ multiple wounds, including L trochanter and sacral DTPI, L ischium resolving pressure injury, refer to WC eval for complete evaluation. * Swallowing difficulty R/T dysphagia as evidenced by pt is now s/p PEG placement, to start GTF. CURRENT TF:Glucerna 1.5 @ 45ml/hr x 24 hrs PO DIET RECOMMENDATIONS: IF ORAL GRAT IS INDICATED: Regular/ liberalized diet (texture per PLEATING MACHINE OPERATOR) ENTERAL NUTRITION RECOMMENDATIONS: Glucerna 1.5 @ 50ml/hr x24 hrs to provide 1200ml, 1800 kcal, 99g pro, 911ml free H2O - Increase goal rate to 50ml/hr. - Pt at HIGH RISK for refeeding syndrome. Initiate TF SLOWLY @ 10ml/hr x 6hrs, advance 10ml q 4-6 hrs as tolerated to goal rate. - Flush per MD. HOB Over 30 degrees ADDITIONAL RECOMMENDATIONS: 1) Obtain an accurate updated weight- pt adm w/ poor po + wt loss 2) Wound care: add ANDRE BID Add VIT C 250mg QD, ZnSO4 220mg QD x 10 days 3) Monitor lytes daily w/ TF, replete as needed- HIGH RISK FOR REFEEDING 4) Monitor BGs closely, need to continue carb controlled TF 5) Oral grat per PLEATING MACHINE OPERATOR if indicated: pt now on continuous TF, s/p PEG on 09/16 Roberto Grimm Sep 17, 2018 14:27
[2018-09-17 16:00] VITALS: BP 95/56
--- NOTE | 2018-09-17 16:23 | Cardiac Electrophysiology PN ---
Assessment/Plan Assessment/Plan 1. Atrial flutter with rapid ventricular response 140s, better on Coreg 3.125 mg b.i.d. and Coumadin resumed after PEG. Had atrial flutter in December 2017 . Consider atrial flutter ablation as out patient 2. Severe cardiomyopathy with EF 15%. Cardiac catheterization by me in December 2017. On Cozaar 25 mg daily, Lasix 40 mg daily, Aldactone 25 mg daily, and Coreg 3.125 mg b.i.d. 3. 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 History of DVT, on Eliquis. 5. History of hypertension. 6. Severe MAIK 0.3 7. Dysphagia, S/P PEG 8. 15 beats of nonsustained VT. Due to severe non ischemic CMP. Consider ICD specially for EF 15% as out patient DW RN and Subjective Subjective No CP or SOB. EF 15%. Remained in flutter, very weak. Had 15 beats of VT yesterday. Had PEG placement 09/16/18. at bedside Objective Last 24 Hour Vital Signs Date Time Temp Pulse Resp B/P (MAP) Pulse Ox O2 Delivery O2 Flow Rate FiO2 09/17/18 12:00 85 09/17/18 10:54 123/78 09/17/18 10:54 102 123/78 09/17/18 08:00 Nasal Cannula 2.0 09/17/18 08:00 107 09/17/18 08:00 98.2 102 20 123/78 (93) 100 09/17/18 07:43 97 Nasal Cannula 2.0 28 09/17/18 04:00 98.2 86 20 84/60 (68) 100 09/17/18 04:00 Nasal Cannula 2.0 09/17/18 03:53 84 09/17/18 00:00 98.6 75 20 86/64 (71) 99 09/17/18 00:00 Nasal Cannula 2.0 09/16/18 23:25 85 09/16/18 20:30 75 84/58 09/16/18 20:00 98.0 75 18 87/56 (66) 99 09/16/18 20:00 Nasal Cannula 2.0 09/16/18 19:37 84 Intake and Output 09/16/18 09/17/18 19:00 07:00 Intake Total 510 ml 840 ml Output Total 200 ml 300 ml Balance 310 ml 540 ml Free Water 200 ml 150 ml IV Total 100 ml 250 ml Tube Feeding 210 ml 440 ml Output Urine Total 200 ml 300 ml # Voids 2 Laboratory Tests Test 09/17/18 03:10 White Blood Count 8.8 K/UL (4.8-10.8) Red Blood Count 3.32 M/UL (4.70-6.10) L Hemoglobin 11.2 G/DL (14.2-18.0) L Hematocrit 35.7 % (42.0-52.0) L Mean Corpuscular Volume 108 FL (80-99) H Mean Corpuscular Hemoglobin 33.6 PG (27.0-31.0) H Mean Corpuscular Hemoglobin Concent 31.2 G/DL (32.0-36.0) L Red Cell Distribution Width 15.7 % (11.6-14.8) H Platelet Count 180 K/UL (150-450) Mean Platelet Volume 8.6 FL (6.5-10.1) Neutrophils (%) (Auto) 73.2 % (45.0-75.0) Lymphocytes (%) (Auto) 18.4 % (20.0-45.0) L Monocytes (%) (Auto) 7.2 % (1.0-10.0) Eosinophils (%) (Auto) 0.5 % (0.0-3.0) Basophils (%) (Auto) 0.7 % (0.0-2.0) Prothrombin Time 12.3 SEC (9.30-11.50) H Prothromb Time International Ratio 1.2 (0.9-1.1) H Sodium Level 144 MMOL/L (136-145) Potassium Level 3.9 MMOL/L (3.5-5.1) Chloride Level 112 MMOL/L (98-107) H Carbon Dioxide Level 24 MMOL/L (21-32) Anion Gap 8 mmol/L (5-15) Blood Urea Nitrogen 24 mg/dL (7-18) H Creatinine 1.1 MG/DL (0.55-1.30) Estimat Glomerular Filtration Rate mL/min (>60) Glucose Level 122 MG/DL (74-106) H Calcium Level 8.5 MG/DL (8.5-10.1) Phosphorus Level 3.1 MG/DL (2.5-4.9) Magnesium Level 1.7 MG/DL (1.8-2.4) L Objective HEAD AND NECK: Mild JVD. LUNGS: Coarse rhonchi. CARDIOVASCULAR: Irregular. S1 and S2 with no gallop or murmur. ABDOMEN: Soft.PEG in place EXTREMITIES: No pitting edema. Antonio Conde MD Sep 17, 2018 16:23
--- NOTE | 2018-09-17 19:20 | NUR ---
NURSE NOTES: Pt report received from THEA RN SACHA. pt appears to be alert and oriented times 1, pt pupils are round and reactive to light and and accommodating bilaterally. pt is on a night monitor showing A FIB (MD aware), no other acute signs symptoms of distress noted. condom cath in place. pt is on a NC 2 and able to sat up to 99% no other signs symptoms of resp distress noted. pt bed is locked and low, bed armed, bed rails up times 3, call light within easy reach. will continue plan of care.
--- NOTE | 2018-09-17 19:20 | NUR ---
HAND-OFF: Report given to .MAXIMUS ADAMS.
[2018-09-17 20:00] VITALS: BP 75/56
--- NOTE | 2018-09-17 20:14 | NUR ---
NURSE NOTES: Messaged and informed MD Coyne about Pt Blood pressure 75/56 map 64. also informed MD about holding the Coreg due at this time and recommended giving another 250 NS bolus. awaiting new orders.
[2018-09-17] MEDS: OLANZapine 2.5mg tab ORAL SCH (20:25)
[2018-09-17] MEDS ORDERED: NS 250 ML IVPB ONE (21:15)
[2018-09-18] VITALS: BP 85/60
[2018-09-18 04:00] VITALS: BP 102/63
[2018-09-18 05:25] LABS: BASOPHILS % (AUTO) 0.7 % (0.0-2.0); EOSINOPHILS % (AUTO) 0.8 % (0.0-3.0); HEMATOCRIT 34.4 % (42.0-52.0); HEMOGLOBIN 10.7 G/DL (14.2-18.0); LYMPHOCYTES % (AUTO) 24.5 % (20.0-45.0); MEAN CORPUSCULAR VOLUME 108 FL (80-99); MONOCYTES % (AUTO) 6.9 % (1.0-10.0); PLATELET COUNT 177 K/UL (150-450); RED CELL DISTRIBUTION WIDTH 15.4 % (11.6-14.8); WHITE BLOOD COUNT 7.5 K/UL (4.8-10.8)
[2018-09-18 05:52] LABS: ANION GAP 7 mmol/L (5-15); BLOOD UREA NITROGEN 30 mg/dL (7-18); CALCIUM 8.6 MG/DL (8.5-10.1); CARBON DIOXIDE 25 MMOL/L (21-32); CHLORIDE 111 MMOL/L (98-107); CREATININE 1.1 MG/DL (0.55-1.30); POTASSIUM 4.4 MMOL/L (3.5-5.1); SODIUM 143 MMOL/L (136-145)
--- NOTE | 2018-09-18 07:10 | NUR ---
NURSE NOTES: Received pt from ANGIE Luo. Pt is eating breakfast, reports feeling more awake today. high blanchard's position, tolerating meal well, ate 75%. is at bedside. Breathing even and unlabored. RA, spo2 97%, RR 20. No signs of distress. RAC 20G, RW 20G, LFA 18G, patent and asymptomatic; TKO. PEG noted, running glucerna 1.5 @ 40ml/hr, no residual noted. Bed locked, alarmed and in lowest position. Will continue plan of care.
--- NOTE | 2018-09-18 07:10 | NUR ---
HAND-OFF: Report given to Nita RN SACHA. Pt is in stable condition.
[2018-09-18 08:00] VITALS: BP 98/68
--- NOTE | 2018-09-18 08:02 | NUR ---
NURSE NOTES: Received T/O per Dr. Watt to discharge patient after Dr. Conde's clearance, continue hospital meds and discontinue home meds. Read back given and verified.
[2018-09-18] MEDS: Furosemide 40mg tab ORAL SCH (08:46)
[2018-09-18] MEDS: Enoxaparin 60mg Inj SUBQ SCH (08:48)
[2018-09-18] MEDS: Losartan 25mg tab ORAL SCH (09:00)
[2018-09-18] MEDS: Spironolactone 25mg tab ORAL SCH (09:00)
--- NOTE | 2018-09-18 09:18 | NUR ---
SWALLOW AND SPEECH THERAPY NOTE: PATIENT SEEN WITH PRESENT. TOLERATING HIS LIQUIFIED PUREED LIKE NECTAR THICK SOUP DIET AND THIN LIQUIDS W/O OVERT ASPIRATION. EDUCATED/TRAINED AND NEW RN IN POSTED ASPIRATION/REFLUX PRECAUTIONS. WILL REVIEW MOD BARIUM SWALLOW STUDY IMAGES TODAY OR TOMORROW TO COMPLETE REPORT AND SEND TO [facility]. CONTINUE WITH ORAL GRAT AND NONORAL FEEDINGS FOR NOW WITH POSTED ASP REFLUX PRECAUTIONS. PLAN: F/UP WITH SCREW REMOVER AT [facility] FOR SKILLED DYSPHAGIA MANAGEMENT AND TX AND COG-COM EVAL/TX Addendum: 09/18/18 at 0932 by DMITRY GARCIA SCREW REMOVER PATIENT TOLERATED 75% OF DIET TODAY, CONSIDER HAVING RD LATER TRY TO REDUCED TUBE FEEDINGS ORAL INTAKE Addendum: 09/18/18 at 1315 by DMITRY GARCIA SCREW REMOVER DISCHARGE SUMMARY updated report summary MODIFIED BARIUM SWALLOW STUDY COMPLETED WITH FULL REPORT TO FOLLOW IN ST CARE ACTIVITY SECTION. ? XEROSTOMIA (HAD VERY DRY AND STRINGY PHLEGM THAT NEEDED TO BE REMOVED FROM MOUTH THAT HE WAS CHEWING ON INITIALLY). TRIALS OF THIN LIQUIDS (TSP, TSP, CUP, STRAW SEQUENTIAL) NECTAR THICK LIQUIDS (TSP, CUP, STRAW SEQUENTIAL), HONEY THICK LIQUID (TSP), PUREED (TSP). NOT GIVEN MASTICATED SOLIDS (NO MOLARS AND TAKES A LONG TIME WITH PUREED). 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 NO ASPIRATION NOR SIGNIFICANT LARYNGEAL PENETRATION BUT HAS RISK IF PRECAUTIONS ARE NOT USED. THIN LIQUIDS WARMUP SWALLOW TSP MAY HVE HAD TRACE ASP WITH THROAT CLEAR BUT DIFFICULT TO VIEW AND DUE TO DELAYED SWALLOW. 2ND TSP AND CUP NO ASP/PENETRATION BUT ON CUP WASH AFTER PUREED AND STRAW SEQUENTIAL HAD TRACE PENETRATION ABOVE VOCAL FOLDS WITH EJECTION DUE TO LATE SWALLOW AND CLOSURE OF LARYNEGEAL VESTIBULE. HAD RISK OF ASPIRATION AND PENETRATION AFTER THE SWALLOW DUE TO OROPHARYNGEAL DYSMOTILITY AND MILD RESIDUE (DELAYED 2ND SWALLOW TO CLEAR THIS AND NEEDED SOME CUES) NECTAR THICK LIQUIDS (TSP,CUP,STRAW SEQUENTIAL) AND HONEY THICK LIQUIDS TSP, AND PUREED TSP HAD NO ASPIRATION/PENETRATION. HAD ASP/PENETRATION RISK AFTER THE SWALLOW DUE TO OROPHARYNGEAL DYSMOTILITY AND MILD BUT MORE THAN WITH THIN LIQ (NEEDED 2ND SWALLOW TO CLEAR AND IT WAS CUED AND DELAYED). DEFICITS AND COMPONENTS NOTED THAT INCREASED ASP/PENETRATION RISK AND REDUCED SWALLOW EFFICIENCY: Oral Impairment Lip Closure left side (also cued him to close mouth, had it open) Tongue Control Bolus transport/lingual motion Honey 9 sec LIANA Pureed 12 sec LIANA Oral residue and reduced sensation may have dry mouth xerostomia as he has stick saliva Initiation pharyngeal swallow Pharyngeal Impairment Laryngeal elevation (LE) Ant. hyoid excursion (AHE) Late laryngeal vestibule closure Pharyngeal stripping wave Epiglottic movement (partial and stays horizontal seems bigger) Tongue base retraction Pharyngeal residue Decreased pharyngeal sensation ESOPHAGEAL PHASE GROSSLY FUNCTIONAL BUT LIMITED LATERAL VIEW DUE TO SHOULDER OBSTRUCTION. BENEFITS FROM SMALL AMOUNTS, LIQUID WASH, CHIN TUCK OR NEUTRAL, EXTRA HARD SWALLOWS, REST OF SOB, SMALL SIP OR TSP (ESPECIALLY WITH THIN LIQUIDS, NO SEQUENTIAL SIPS. DID A SPONTANEOUS EFFORTFUL BREATH HOLD WITH SOME SEQUENTIAL SWALLOWS. PLAN: FOR QUALITY OF LIFE, CONSIDER ORAL GRATIFICATION OF LIQUIFIED PUREED LIKE NECTAR THICK SOUP CONSISTENCY OK TO HAVE THIN LIQUIDS WITH POSTED ASPIRATION AND REFLUX PRECAUTIONS AND 1 TO 1 FEEDING. Slowly decrease tube feedings as oral intake increases CONTINUE WITH NONORAL FEEDINGS AND ORAL CARE (BRUSH AND FLOSS TEETH) SKILLED DYSPHAGIA MANAGEMENT AND TX AND COG-COM EVAL/TX EDUCATED/TRAINED STAFF, PATIENT, AND HIS IN POSTED ASPIRATION/REFLUX PRECAUTIONS AND SWALLOW STRATEGIES. CONTINUE WITH NONORAL FEEDINGS BUT INITIATE CARDIAC LIQUIFIED PUREED LIKE NECTAR THICK SOUP CONSISTENCY WITH THIN LIQUIDS AND POSTED ASPIRATION AND REFLUX PRECAUTIONS FOR QUALITY OF LIFE PURPOSES AND PER PATIENT'S AND FAMILY REQUESTS. D/W STAFF AND PATIENT/FAMILY
[2018-09-18] MEDS: Vitamin A&D Oint 2oz Tube TOPIC SCH (09:28)
--- NOTE | 2018-09-18 09:48 | Hematology/Onc Progress Note ---
Assessment/Plan Assessment/Plan Assessment and Recs: # Thrombocytopenia - most likely related to PNA infection. 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 --> Anemia w/u has been reviewed. Ferritin at 450. --> hgb goal >7. Transfuse prn. 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 CXR has been reviewed. --> May need abx --> pulm eval prn # Myocardial infarction. --> Cardiac cath [address] Conde # Atrial flutter with rapid ventricular response. --> per cards, potential ablation --> potential icd placement # Psych disorder -- as per psych recs Greatly appreciate consultation! Subjective Constitutional: Denies: no symptoms, chills, fever, malaise, weakness, other HEENT: Denies: no symptoms, eye pain, blurred vision, tearing, double vision, ear pain, ear discharge, nose pain, nose congestion, throat pain, throat swelling, mouth pain, mouth swelling, other Cardiovascular: Denies: no symptoms, chest pain, edema, irregular heart rate, lightheadedness, palpitations, syncope, other Respiratory: Denies: no symptoms, cough, shortness of breath, SOB with excertion, SOB at rest, sputum, wheezing, other Genitourinary: Denies: no symptoms, burning, discharge, frequency, flank pain, hematuria, incontinence, pain, urgency, other Neurologic/Psychiatric: Denies: no symptoms, anxiety, depressed, emotional problems, headache, numbness, paresthesia, pre-existing deficit, seizure, tingling, tremors, weakness, other Endocrine: Denies: no symptoms, excessive sweating, flushing, intolerance to cold, intolerance to heat, increased hunger, increased thirst, increased urine, unexplained weight gain, unexplained weight loss, other Allergies: Coded Allergies: No Known Allergies (Unverified , 01/07/18) Subjective 09/11: no fevers noted, no chills, bp is low, remains on eliquis and seen by cards 09/12: no bleeding, no chills, no night sweats, is on lovenox and coumadin, inr goal 2-3 09/13: no events, inr higher, no f/c, no bleeding 09/14: labs have been reviewed, improved, arousable in am, by bedside 09/15: no events, no bleeding, comfortable, sleeping, labs reviewed 09/16: peg successfully was placed, seen by Vojacques, in room as well 09/17: no overnight events, in stable condition, swallow study for today, 09/18: is s/p peg placement, no f/c no bleeding, feeling better Objective Objective Current Medications Medications (Trade) Dose Ordered Sig/Fritz Route PRN Reason Start Time Stop Time Status Last Admin Dose Admin Acetaminophen (Tylenol) 650 mg Q6H PRN ORAL Mild Pain/Temp > 100.5 09/11/18 19:45 10/11/18 19:44 Carvedilol (Coreg) 3.125 mg EVERY 12 HOURS ORAL 09/11/18 21:00 10/09/18 20:59 09/17/18 10:54 Enoxaparin Sodium (Lovenox) 60 mg Q12HR SUBQ 09/16/18 21:00 10/16/18 20:59 09/18/18 08:48 Famotidine (Pepcid) 20 mg DAILY ORAL 09/10/18 09:00 10/10/18 08:59 09/18/18 08:46 Furosemide (Lasix) 40 mg DAILY ORAL 09/10/18 09:00 10/10/18 08:59 09/18/18 08:46 Losartan Potassium (Cozaar) 25 mg DAILY ORAL 09/12/18 09:00 10/10/18 08:59 09/17/18 10:54 Olanzapine (ZyPREXA) 2.5 mg BEDTIME ORAL 09/11/18 21:00 10/11/18 20:59 09/17/18 20:25 Spironolactone (Aldactone) 25 mg DAILY ORAL 09/14/18 09:00 10/10/18 08:59 09/17/18 10:56 Vitamin A/Vitamin D (A & D Oint) 1 applic EVERY 12 HOURS TOPIC 09/09/18 21:00 10/09/18 20:59 09/18/18 09:28 Last 24 Hour Vital Signs Date Time Temp Pulse Resp B/P (MAP) Pulse Ox O2 Delivery O2 Flow Rate FiO2 09/18/18 09:00 102/63 09/18/18 09:00 86 102/63 09/18/18 08:00 Nasal Cannula 2.0 09/18/18 04:00 98.0 86 20 102/63 (76) 99 09/18/18 04:00 Nasal Cannula 2.0 09/18/18 03:25 99 09/18/18 00:00 Nasal Cannula 2.0 09/18/18 00:00 98.2 82 20 85/60 (68) 100 09/17/18 23:27 84 09/17/18 20:42 96 Nasal Cannula 2.0 28 09/17/18 20:17 86 75/56 09/17/18 20:00 Nasal Cannula 2.0 09/17/18 20:00 98.6 88 20 75/56 (62) 95 09/17/18 19:01 88 09/17/18 16:00 82 09/17/18 16:00 Nasal Cannula 2.0 09/17/18 16:00 97.7 91 21 95/56 (69) 95 09/17/18 12:00 Nasal Cannula 2.0 09/17/18 12:00 85 09/17/18 10:54 123/78 09/17/18 10:54 102 123/78 09/17/18 08:00 Nasal Cannula 2.0 09/17/18 08:00 107 09/17/18 08:00 98.2 102 20 123/78 (93) 100 09/17/18 07:43 97 Nasal Cannula 2.0 28 09/17/18 04:00 98.2 86 20 84/60 (68) 100 09/17/18 04:00 Nasal Cannula 2.0 09/17/18 03:53 84 09/17/18 00:00 98.6 75 20 86/64 (71) 99 09/17/18 00:00 Nasal Cannula 2.0 09/16/18 23:25 85 09/16/18 20:30 75 84/58 09/16/18 20:00 98.0 75 18 87/56 (66) 99 09/16/18 20:00 Nasal Cannula 2.0 09/16/18 19:37 84 09/16/18 16:06 82 09/16/18 16:00 98.1 86 18 90/69 (76) 98 09/16/18 16:00 Nasal Cannula 2.0 09/16/18 12:00 Nasal Cannula 2.0 09/16/18 12:00 81 09/16/18 12:00 97.7 74 20 90/52 (65) 98 Intake and Output 09/17/18 09/18/18 19:00 07:00 Intake Total 830 ml 980 ml Output Total 400 ml 400 ml Balance 430 ml 580 ml Intake Oral 40 ml 40 ml Free Water 350 ml 200 ml IV Total 250 ml Tube Feeding 440 ml 490 ml Output Urine Total 400 ml 400 ml Stool Total 0 ml 0 ml Labs Test 09/15/18 11:25 09/16/18 03:14 09/17/18 03:10 09/18/18 02:50 White Blood Count 8.0 K/UL (4.8-10.8) 8.1 K/UL (4.8-10.8) 8.8 K/UL (4.8-10.8) 7.5 K/UL (4.8-10.8) Red Blood Count 3.60 M/UL (4.70-6.10) 3.57 M/UL (4.70-6.10) 3.32 M/UL (4.70-6.10) 3.20 M/UL (4.70-6.10) Hemoglobin 12.1 G/DL (14.2-18.0) 12.2 G/DL (14.2-18.0) 11.2 G/DL (14.2-18.0) 10.7 G/DL (14.2-18.0) Hematocrit 38.4 % (42.0-52.0) 38.5 % (42.0-52.0) 35.7 % (42.0-52.0) 34.4 % (42.0-52.0) Mean Corpuscular Volume 107 FL (80-99) 108 FL (80-99) 108 FL (80-99) 108 FL ( 80-99) Mean Corpuscular Hemoglobin 33.5 PG (27.0-31.0) 34.0 PG (27.0-31.0) 33.6 PG (27.0-31.0) 33.4 PG (27.0-31.0) Mean Corpuscular Hemoglobin Concent 31.4 G/DL (32.0-36.0) 31.5 G/DL (32.0-36.0) 31.2 G/DL (32.0-36.0) 31.0 G/DL (32.0-36.0) Red Cell Distribution Width 15.6 % (11.6-14.8) 15.8 % (11.6-14.8) 15.7 % (11.6-14.8) 15.4 % (11.6-14.8) Platelet Count 195 K/UL (150-450) 198 K/UL (150-450) 180 K/UL (150-450) 177 K/UL (150-450) Mean Platelet Volume 9.4 FL (6.5-10.1) 9.6 FL (6.5-10.1) 8.6 FL (6.5-10.1) 8.3 FL (6.5-10.1) Neutrophils (%) (Auto) 72.3 % (45.0-75.0) 73.1 % (45.0-75.0) 73.2 % (45.0-75.0) 67.0 % (45.0-75.0) Lymphocytes (%) (Auto) 16.5 % (20.0-45.0) 17.5 % (20.0-45.0) 18.4 % (20.0-45.0) 24.5 % (20.0-45.0) Monocytes (%) (Auto) 9.7 % (1.0-10.0) 7.9 % (1.0-10.0) 7.2 % (1.0-10.0) 6.9 % (1.0-10.0) Eosinophils (%) (Auto) 0.5 % (0.0-3.0) 0.6 % (0.0-3.0) 0.5 % (0.0-3.0) 0.8 % (0.0-3.0) Basophils (%) (Auto) 1.0 % (0.0-2.0) 1.0 % (0.0-2.0) 0.7 % (0.0-2.0) 0.7 % (0.0-2.0) Prothrombin Time 12.9 SEC (9.30-11.50) 14.0 SEC (9.30-11.50) 12.3 SEC (9.30-11.50) Prothromb Time International Ratio 1.2 (0.9-1.1) 1.3 (0.9-1.1) 1.2 (0.9-1.1) Activated Partial Thromboplast Time 46 SEC (23-33) Folate 4.7 NG/ML (8.6-58.9) Sodium Level 141 MMOL/L (136-145) 144 MMOL/L (136-145) 143 MMOL/L (136-145) Potassium Level 4.5 MMOL/L (3.5-5.1) 3.9 MMOL/L (3.5-5.1) 4.4 MMOL/L (3.5-5.1) Chloride Level 110 MMOL/L (98-107) 112 MMOL/L (98-107) 111 MMOL/L (98-107) Carbon Dioxide Level 23 MMOL/L (21-32) 24 MMOL/L (21-32) 25 MMOL/L (21-32) Anion Gap 8 mmol/L (5-15) 8 mmol/L (5-15) 7 mmol/L (5-15) Blood Urea Nitrogen 25 mg/dL (7-18) 24 mg/dL (7-18) 30 mg/dL (7-18) Creatinine 1.1 MG/DL (0.55-1.30) 1.1 MG/DL (0.55-1.30) 1.1 MG/DL (0.55-1.30) Estimat Glomerular Filtration Rate mL/min (>60) mL/min (>60) mL/min (>60) Glucose Level 151 MG/DL (74-106) 122 MG/DL (74-106) 120 MG/DL (74-106) Calcium Level 8.5 MG/DL (8.5-10.1) 8.5 MG/DL (8.5-10.1) 8.6 MG/DL (8.5-10.1) Phosphorus Level 3.1 MG/DL (2.5-4.9) Magnesium Level 1.7 MG/DL (1.8-2.4) 1.8 MG/DL (1.8-2.4) Height (Feet): 5 Height (Inches): 11.00 Weight (Pounds): 139 Objective Gen: normal inspection, alert, thin, Chronically Ill Head: atraumatic, normal ENT inspection, normal voice Neck: normal inspection, supple, no bony tend, limited range of motion Respiratory: normal inspection, lungs clear, normal breath sounds, NC+ Cv: rrr, no edema Gi: normal inspection, normal bowel sounds, non tender, PEG+ Gu: no CVA tenderness Msk: normal inspection, back normal Neurologic: normal inspection, alert, responsive, speech normal Psychiatric: normal inspection, judgement/insight normal Bruce Loya MD Sep 18, 2018 09:48
--- NOTE | 2018-09-18 10:02 | NUR ---
DISCHARGE PLANNING WAITING FOR CLEARANCE FROM GLUED WOOD TESTER FAXED CLINICALS TO [facility] MOUNIKA MINER T: [phone] F: [phone]
--- NOTE | 2018-09-18 10:23 | GI Progress Note ---
Assessment/Plan Problems: (1) Encounter for PEG (percutaneous endoscopic gastrostomy) ICD Codes: Z43.1 - Encounter for attention to gastrostomy SNOMED: 538594891, 426236384 (2) Severe protein-calorie malnutrition ICD Codes: E43 - Unspecified severe protein-calorie malnutrition SNOMED: 070722576, 924092838, 937806442 (3) Abnormal LFTs ICD Codes: R94.5 - Abnormal results of liver function studies SNOMED: 564380626 (4) Anemia ICD Codes: D64.9 - Anemia, unspecified SNOMED: 955822701 Status: unchanged Status Narrative Discussed with Dr. Boo. Assessment/Plan SUMMARY OF FINDINGS: 1. Gastritis. 2. Status post successful PEG placement. RECOMMENDATION: 1. Abdominal binder. 2. Elevate the head of the bed at all times. 3. G-tube flush. 4. G-tube care. 5. GTFs per RD prn transfusions reglan for GI motility ppi follow labs The patient was seen and examined at bedside and all new and available data was reviewed in the patients chart. I agree with the above findings, impression and plan. (Patient seen earlier today. Signature stamp does not reflect patient encounter time.). - Phoenix Boo MD Subjective Subjective limited Objective Last 24 Hour Vital Signs Date Time Temp Pulse Resp B/P (MAP) Pulse Ox O2 Delivery O2 Flow Rate FiO2 09/18/18 09:00 102/63 09/18/18 09:00 86 102/63 09/18/18 08:00 Nasal Cannula 2.0 09/18/18 08:00 98 09/18/18 08:00 98.2 95 20 98/68 (78) 95 09/18/18 04:00 98.0 86 20 102/63 (76) 99 09/18/18 04:00 Nasal Cannula 2.0 09/18/18 03:25 99 09/18/18 00:00 Nasal Cannula 2.0 09/18/18 00:00 98.2 82 20 85/60 (68) 100 09/17/18 23:27 84 09/17/18 20:42 96 Nasal Cannula 2.0 28 09/17/18 20:17 86 75/56 09/17/18 20:00 Nasal Cannula 2.0 09/17/18 20:00 98.6 88 20 75/56 (62) 95 09/17/18 19:01 88 09/17/18 16:00 82 09/17/18 16:00 Nasal Cannula 2.0 09/17/18 16:00 97.7 91 21 95/56 (69) 95 09/17/18 12:00 Nasal Cannula 2.0 09/17/18 12:00 85 09/17/18 10:54 123/78 09/17/18 10:54 102 123/78 Intake and Output 09/17/18 09/18/18 19:00 07:00 Intake Total 830 ml 980 ml Output Total 400 ml 400 ml Balance 430 ml 580 ml Intake Oral 40 ml 40 ml Free Water 350 ml 200 ml IV Total 250 ml Tube Feeding 440 ml 490 ml Output Urine Total 400 ml 400 ml Stool Total 0 ml 0 ml Laboratory Tests Test 09/18/18 02:50 White Blood Count 7.5 K/UL (4.8-10.8) Red Blood Count 3.20 M/UL (4.70-6.10) L Hemoglobin 10.7 G/DL (14.2-18.0) L Hematocrit 34.4 % (42.0-52.0) L Mean Corpuscular Volume 108 FL (80-99) H Mean Corpuscular Hemoglobin 33.4 PG (27.0-31.0) H Mean Corpuscular Hemoglobin Concent 31.0 G/DL (32.0-36.0) L Red Cell Distribution Width 15.4 % (11.6-14.8) H Platelet Count 177 K/UL (150-450) Mean Platelet Volume 8.3 FL (6.5-10.1) Neutrophils (%) (Auto) 67.0 % (45.0-75.0) Lymphocytes (%) (Auto) 24.5 % (20.0-45.0) Monocytes (%) (Auto) 6.9 % (1.0-10.0) Eosinophils (%) (Auto) 0.8 % (0.0-3.0) Basophils (%) (Auto) 0.7 % (0.0-2.0) Sodium Level 143 MMOL/L (136-145) Potassium Level 4.4 MMOL/L (3.5-5.1) Chloride Level 111 MMOL/L (98-107) H Carbon Dioxide Level 25 MMOL/L (21-32) Anion Gap 7 mmol/L (5-15) Blood Urea Nitrogen 30 mg/dL (7-18) H Creatinine 1.1 MG/DL (0.55-1.30) Estimat Glomerular Filtration Rate mL/min (>60) Glucose Level 120 MG/DL (74-106) H Calcium Level 8.6 MG/DL (8.5-10.1) Magnesium Level 1.8 MG/DL (1.8-2.4) Height (Feet): 5 Height (Inches): 11.00 Weight (Pounds): 139 General Appearance: WD/WN, no apparent distress, alert Cardiovascular: normal rate Respiratory/Chest: normal breath sounds, no respiratory distress Abdominal Exam: normal bowel sounds, non tender, soft, GT site - c/d/i Extremities: non-tender Juarez Mera NP Sep 18, 2018 10:23
--- NOTE | 2018-09-18 10:48 | Surgery Progress Note ---
Surgery Progress Note Subjective Additional Comments labs stable h/h stable tolerating feeds Objective Last 24 Hour Vital Signs Date Time Temp Pulse Resp B/P (MAP) Pulse Ox O2 Delivery O2 Flow Rate FiO2 09/18/18 09:00 102/63 09/18/18 09:00 86 102/63 09/18/18 08:00 Nasal Cannula 2.0 09/18/18 08:00 98 09/18/18 08:00 98.2 95 20 98/68 (78) 95 09/18/18 04:00 98.0 86 20 102/63 (76) 99 09/18/18 04:00 Nasal Cannula 2.0 09/18/18 03:25 99 09/18/18 00:00 Nasal Cannula 2.0 09/18/18 00:00 98.2 82 20 85/60 (68) 100 09/17/18 23:27 84 09/17/18 20:42 96 Nasal Cannula 2.0 28 09/17/18 20:17 86 75/56 09/17/18 20:00 Nasal Cannula 2.0 09/17/18 20:00 98.6 88 20 75/56 (62) 95 09/17/18 19:01 88 09/17/18 16:00 82 09/17/18 16:00 Nasal Cannula 2.0 09/17/18 16:00 97.7 91 21 95/56 (69) 95 09/17/18 12:00 Nasal Cannula 2.0 09/17/18 12:00 85 09/17/18 10:54 123/78 09/17/18 10:54 102 123/78 I&O Intake and Output 09/17/18 09/18/18 19:00 07:00 Intake Total 830 ml 980 ml Output Total 400 ml 400 ml Balance 430 ml 580 ml Intake Oral 40 ml 40 ml Free Water 350 ml 200 ml IV Total 250 ml Tube Feeding 440 ml 490 ml Output Urine Total 400 ml 400 ml Stool Total 0 ml 0 ml Dressing: dry Wound: clean Cardiovascular: RSR Respiratory: clear Abdomen: present bowel sounds, other, non-distended Extremities: no cyanosis Laboratory Tests Test 09/18/18 02:50 White Blood Count 7.5 K/UL (4.8-10.8) Red Blood Count 3.20 M/UL (4.70-6.10) L Hemoglobin 10.7 G/DL (14.2-18.0) L Hematocrit 34.4 % (42.0-52.0) L Mean Corpuscular Volume 108 FL (80-99) H Mean Corpuscular Hemoglobin 33.4 PG (27.0-31.0) H Mean Corpuscular Hemoglobin Concent 31.0 G/DL (32.0-36.0) L Red Cell Distribution Width 15.4 % (11.6-14.8) H Platelet Count 177 K/UL (150-450) Mean Platelet Volume 8.3 FL (6.5-10.1) Neutrophils (%) (Auto) 67.0 % (45.0-75.0) Lymphocytes (%) (Auto) 24.5 % (20.0-45.0) Monocytes (%) (Auto) 6.9 % (1.0-10.0) Eosinophils (%) (Auto) 0.8 % (0.0-3.0) Basophils (%) (Auto) 0.7 % (0.0-2.0) Sodium Level 143 MMOL/L (136-145) Potassium Level 4.4 MMOL/L (3.5-5.1) Chloride Level 111 MMOL/L (98-107) H Carbon Dioxide Level 25 MMOL/L (21-32) Anion Gap 7 mmol/L (5-15) Blood Urea Nitrogen 30 mg/dL (7-18) H Creatinine 1.1 MG/DL (0.55-1.30) Estimat Glomerular Filtration Rate mL/min (>60) Glucose Level 120 MG/DL (74-106) H Calcium Level 8.6 MG/DL (8.5-10.1) Magnesium Level 1.8 MG/DL (1.8-2.4) Plan Problems: (1) Decubitus skin ulcer Assessment & Plan: Pt presented on admission with multiple pressure injuries. Open DTPI noted to Sacrum .Base of wound indurated ,purple with two open areas .Wound in its entirety measures (L)9cm x (W)8.5cm. Proximal wound within base of DTPI measures (L)2cm x (W03cm .Base of wound regina with 10% slough.Inferior but in close proximity second wound within DTPI measures (L)0.8cm x (W) 0.6cm.Base of wound regina. Resolving pressure injury noted to L ischium .Base of wound pale with dry borders. DTPI noted to L trochanter .Base of wound indurated, purple with scattered striations that are maroon in colourwiti=hin base of wound.(L)12cm x (W) 7cm.Site tender when minimally palpated. L heel maroon in colour with fluctuance. Tender when minimally palpated (L) 6.5cm x (W)6cm. R heel maroon in colour with fluctuance. Tender when minimally palpated.(L) 5.5cm x (W)7cm. Darker skin tone noted to lateral/posterior R tibia. Non-blanching erythema with fluctuance noted to tips of R and L 1st metatarsals. Spouse at bedside and all skin findings addressed with spouse .Spouse has been educated of risks for further skin decline, including possibility of DTPIs becoming open wounds.Spouse has been informed of interventions being implemented to minimize risks for further skin breakdown. Albumin low. nutritional optimization Tx.Plan: Cleanse Sacral wound with Saline. Apply Therahoney to open wounds.Apply Triad Paste periwound .Cover with Optifoam drsg. Change Daily and prn. Apply Cavilon Skin Barrier to Both heels. Cover each heel with Optifoam drsg. Change every 7 days and prn. Apply Cavilon Skin Barrier to both heels. Cover each heel with Optifoam drsg. Change every 7 days and prn. APM/TRACIE mattress overlay. Reposition at least every 2hours or as tolerated. Off-load heels with pillow. (2) Abnormal LFTs Assessment & Plan: Patient identified to have a elevated total bilirubin with a elevated direct bilirubin component. AST ALT alk phos are okay otherwise. Abdominal ultrasound identified and demonstrated cholelithiasis. Etiology of elevated liver enzymes currently unknown Potential medication reaction versus component of cholelithiasis labs trending down and improved okay for diet from surgical standpoint No acute surgical intervention at this time d/c planning now cont above care for d/c at intermediate feeds as noted (3) Severe protein-calorie malnutrition Assessment & Plan: s/p peg DAILY ESTIMATED NEEDS: Needs based on Wounds 54.5kg 30-35 kcals/kg [id number] total kcals 1.25-2 g protein/kg 68-109 g total protein Fluid per MD, on lasix mL/kg total fluid mLs NUTRITION DIAGNOSIS: * Increased kcal and pro needs r/t wound healing as evidenced by pt w/ multiple wounds, including L trochanter and sacral DTPI, L ischium resolving pressure injury, refer to eval for complete evaluation. * Swallowing difficulty R/T dysphagia as evidenced by pt is now s/p PEG placement, to start GTF. CURRENT TF:Glucerna 1.5 @ 45ml/hr x 24 hrs PO DIET RECOMMENDATIONS: IF ORAL GRAT IS INDICATED: Regular/ liberalized diet (texture per SKIN THERAPIST) ENTERAL NUTRITION RECOMMENDATIONS: Glucerna 1.5 @ 50ml/hr x24 hrs to provide 1200ml, 1800 kcal, 99g pro, 911ml free H2O - Increase goal rate to 50ml/hr. - Pt at HIGH RISK for refeeding syndrome. Initiate TF SLOWLY @ 10ml/hr x 6hrs, advance 10ml q 4-6 hrs as tolerated to goal rate. - Flush per MD. HOB Over 30 degrees ADDITIONAL RECOMMENDATIONS: 1) Obtain an accurate updated weight- pt adm w/ poor po + wt loss 2) Wound care: add ANDRE BID Add VIT C 250mg QD, ZnSO4 220mg QD x 10 days 3) Monitor lytes daily w/ TF, replete as needed- HIGH RISK FOR REFEEDING 4) Monitor BGs closely, need to continue carb controlled TF 5) Oral grat per SKIN THERAPIST if indicated: pt now on continuous TF, s/p PEG on 09/16 Roberto Grimm Sep 18, 2018 10:48
--- NOTE | 2018-09-18 10:49 | NUR ---
DISCHARGE PLANNED CLEARED BY CARDIO DISCHARGING TO [facility] ROOM [address] SKILLED T: [phone] FOR NURSE TO NURSE REPORT [facility] HAS BEEN ARRANGED FOR [address]30 [employer] LEFT [facility] FOR
[2018-09-18] MEDS ORDERED: NS 275ml ONE ×2 (10:53→12:59)
--- NOTE | 2018-09-18 10:54 | Cardiac Electrophysiology PN ---
Assessment/Plan Assessment/Plan 1. Atrial flutter with rapid ventricular response 140s, better on Coreg 3.125 mg b.i.d. and Coumadin resumed Had atrial flutter in December 2017. Consider atrial flutter ablation as out patient. Dig level > 5 on 09/09 but is off Dig. 2. Severe cardiomyopathy with EF 15%. Cardiac catheterization by me in December 2017. On Cozaar 25 mg daily, Lasix 40 mg daily, Aldactone 12.5 mg daily, and Coreg 3.125 mg b.i.d. 3. Mobile LV Clot On Lovenox and resumed Coumadin 4. History of DVT, on Eliquis. 5. History of hypertension. 6. Severe MAIK 0.3 7. Dysphagia, S/P PEG 8. 15 beats of nonsustained VT. Due to severe non ischemic CMP. Consider ICD specially for EF 15% as out patient DW RN and Dr Weathers to resume coumadin. OK to DC to [facility] Subjective Subjective No CP or SOB. EF 15%. Remained in flutter, Had PEG placement 09/16/18. at bedside. BP better Objective Last 24 Hour Vital Signs Date Time Temp Pulse Resp B/P (MAP) Pulse Ox O2 Delivery O2 Flow Rate FiO2 09/18/18 09:00 102/63 09/18/18 09:00 86 102/63 09/18/18 08:00 Nasal Cannula 2.0 09/18/18 08:00 98 09/18/18 08:00 98.2 95 20 98/68 (78) 95 09/18/18 04:00 98.0 86 20 102/63 (76) 99 09/18/18 04:00 Nasal Cannula 2.0 09/18/18 03:25 99 09/18/18 00:00 Nasal Cannula 2.0 09/18/18 00:00 98.2 82 20 85/60 (68) 100 09/17/18 23:27 84 09/17/18 20:42 96 Nasal Cannula 2.0 28 09/17/18 20:17 86 75/56 09/17/18 20:00 Nasal Cannula 2.0 09/17/18 20:00 98.6 88 20 75/56 (62) 95 09/17/18 19:01 88 09/17/18 16:00 82 09/17/18 16:00 Nasal Cannula 2.0 09/17/18 16:00 97.7 91 21 95/56 (69) 95 09/17/18 12:00 Nasal Cannula 2.0 09/17/18 12:00 85 09/17/18 10:54 123/78 09/17/18 10:54 102 123/78 Intake and Output 09/17/18 09/18/18 19:00 07:00 Intake Total 830 ml 980 ml Output Total 400 ml 400 ml Balance 430 ml 580 ml Intake Oral 40 ml 40 ml Free Water 350 ml 200 ml IV Total 250 ml Tube Feeding 440 ml 490 ml Output Urine Total 400 ml 400 ml Stool Total 0 ml 0 ml Laboratory Tests Test 09/18/18 02:50 White Blood Count 7.5 K/UL (4.8-10.8) Red Blood Count 3.20 M/UL (4.70-6.10) L Hemoglobin 10.7 G/DL (14.2-18.0) L Hematocrit 34.4 % (42.0-52.0) L Mean Corpuscular Volume 108 FL (80-99) H Mean Corpuscular Hemoglobin 33.4 PG (27.0-31.0) H Mean Corpuscular Hemoglobin Concent 31.0 G/DL (32.0-36.0) L Red Cell Distribution Width 15.4 % (11.6-14.8) H Platelet Count 177 K/UL (150-450) Mean Platelet Volume 8.3 FL (6.5-10.1) Neutrophils (%) (Auto) 67.0 % (45.0-75.0) Lymphocytes (%) (Auto) 24.5 % (20.0-45.0) Monocytes (%) (Auto) 6.9 % (1.0-10.0) Eosinophils (%) (Auto) 0.8 % (0.0-3.0) Basophils (%) (Auto) 0.7 % (0.0-2.0) Sodium Level 143 MMOL/L (136-145) Potassium Level 4.4 MMOL/L (3.5-5.1) Chloride Level 111 MMOL/L (98-107) H Carbon Dioxide Level 25 MMOL/L (21-32) Anion Gap 7 mmol/L (5-15) Blood Urea Nitrogen 30 mg/dL (7-18) H Creatinine 1.1 MG/DL (0.55-1.30) Estimat Glomerular Filtration Rate mL/min (>60) Glucose Level 120 MG/DL (74-106) H Calcium Level 8.6 MG/DL (8.5-10.1) Magnesium Level 1.8 MG/DL (1.8-2.4) Objective HEAD AND NECK: Mild JVD. LUNGS: Coarse rhonchi. CARDIOVASCULAR: Irregular. S1 and S2 with no gallop or murmur. ABDOMEN: Soft.PEG in place EXTREMITIES: No pitting edema. Antonio Conde MD Sep 18, 2018 10:54
--- NOTE | 2018-09-18 11:51 | History & Physical ---
History and Physical History & Physicial Date and time entered: 09/10/18 History of Present Illness General Chief Complaint: Generalized Weakness Present Illness Allergies: Coded Allergies: No Known Allergies (Unverified , 01/07/18) Medication History Scheduled Apixaban (Eliquis), 5 MG PO DAILY, (Reported) Carvedilol (Coreg), 3.125 MG ORAL EVERY 12 HOURS, (Reported) Furosemide* (Lasix*), 40 MG ORAL DAILY, (Reported) Losartan Potassium* (Losartan Potassium*), 25 MG ORAL DAILY, (Reported) Ranitidine Hcl* (Zantac*), 150 MG ORAL DAILY, (Reported) Spironolactone* (Aldactone*), 25 MG ORAL DAILY, (Reported) Discontinued Medications Acetaminophen* (Acetaminophen 325MG Tablet*), 650 MG ORAL Q4H PRN for Mild Pain/ Temp > 100.5, (Reported) Discontinued Reason: Therapy completed Acetylcysteine* (Acetylcysteine*), 600 MG ORAL TWICE A DAY, (Reported) Discontinued Reason: Therapy completed Allopurinol* (Allopurinol*), 300 MG ORAL DAILY, (Reported) Discontinued Reason: Therapy completed Azithromycin* (Zithromax*), 250 MG ORAL DAILY, (Reported) Discontinued Reason: Therapy completed Ceftazidime Pentahydrate/D5w (Ceftazidime 1 Gm Piggyback), 1 GM IV DAILY, ( Reported) Discontinued Reason: Therapy completed Digoxin* (Digoxin*), 0.25 MG ORAL DAILY, (Reported) Discontinued Reason: Therapy completed Docusate Sodium* (Colace*), 100 MG ORAL THREE TIMES A DAY, (Reported) Discontinued Reason: Therapy completed Enoxaparin* (Lovenox*), 80 MG SUBQ EVERY 12 HOURS, (Reported) Discontinued Reason: Therapy completed Guaifenesin (Guaifenesin ER), 600 MG ORAL BID, (Reported) Discontinued Reason: Therapy completed Guaifenesin* (Guaifenesin), 5 ML ORAL Q4H PRN for For Cough, (Reported) Discontinued Reason: Therapy completed Ipratropium [place] 0.5MG/2.5ML (Ipratropium [place] 0.5MG/2.5ML), 0.5 MG HHN Q4HR PRN for Shortness of Breath, (Reported) Discontinued Reason: Therapy completed Ipratropium [place] 0.5MG/2.5ML (Ipratropium [place] 0.5MG/2.5ML), 0.5 MG HHN Q6H, (Reported) Discontinued Reason: Therapy completed Lisinopril* (Lisinopril*), 10 MG ORAL DAILY, (Reported) Discontinued Reason: Therapy completed Losartan Potassium* (Losartan Potassium*), 25 MG ORAL DAILY, (Reported) Discontinued Reason: Therapy completed Magnesium Oxide (Mag-Oxide), 400 MG PO THREE TIMES A DAY, (Reported) Discontinued Reason: Therapy completed Pantoprazole* (Protonix*), 40 MG ORAL DAILY, (Reported) Discontinued Reason: Therapy completed Spironolactone* (Spironolactone*), 25 MG ORAL DAILY, (Reported) Discontinued Reason: Prescription changed Patient History Healthcare decision maker Resuscitation status Advanced Directive on File No Physical Exam Last 24 Hour Vital Signs Date Time Temp Pulse Resp B/P (MAP) Pulse Ox O2 Delivery O2 Flow Rate FiO2 09/10/18 04:00 Room Air 09/10/18 04:00 98.2 58 20 102/69 (80) 94 09/10/18 03:23 61 09/10/18 00:00 56 09/10/18 00:00 97.3 68 20 100/58 (72) 100 09/10/18 00:00 Room Air 09/09/18 20:54 60 100/66 09/09/18 20:00 Room Air 09/09/18 20:00 98.4 60 20 100/66 (77) 98 09/09/18 20:00 55 09/09/18 17:19 Room Air 09/09/18 17:05 70 09/09/18 16:41 97.5 84 20 95/52 (66) 96 09/09/18 16:07 97.3 82 19 96/76 100 Room Air 09/09/18 15:53 97.3 82 19 96/76 100 Room Air 09/09/18 15:48 82 18 Room Air 09/09/18 14:19 97.3 108 19 93/75 100 Room Air 09/09/18 14:01 107 09/09/18 13:48 97.3 113 16 93/66 100 Room Air 09/09/18 13:16 97.3 87 16 86/66 (73) 100 Room Air Intake and Output 09/09/18 09/10/18 19:00 07:00 Intake Total 120 ml Output Total 400 ml Balance -280 ml Intake Oral 120 ml Output Urine Total 400 ml # Voids 2 1 # Bowel Movements 1 Laboratory Tests Test 09/09/18 13:30 09/09/18 14:15 09/09/18 15:30 09/10/18 04:56 White Blood Count 8.7 K/UL (4.8-10.8) 6.4 K/UL (4.8-10.8) Red Blood Count 4.68 M/UL (4.70-6.10) L 4.11 M/UL (4.70-6.10) L Hemoglobin 15.7 G/DL (14.2-18.0) 14.0 G/DL (14.2-18.0) L Hematocrit 51.4 % (42.0-52.0) 45.3 % (42.0-52.0) Mean Corpuscular Volume 110 FL (80-99) H 110 FL (80-99) H Mean Corpuscular Hemoglobin 33.5 PG (27.0-31.0) H 34.1 PG (27.0-31.0) H Mean Corpuscular Hemoglobin Concent 30.5 G/DL (32.0-36.0) L 31.0 G/DL (32.0-36.0) L Red Cell Distribution Width 16.8 % (11.6-14.8) H 16.6 % (11.6-14.8) H Platelet Count 106 K/UL (150-450) L 111 K/UL (150-450) L Mean Platelet Volume 10.9 FL (6.5-10.1) H 9.1 FL (6.5-10.1) Neutrophils (%) (Auto) 67.0 % (45.0-75.0) 73.2 % (45.0-75.0) Lymphocytes (%) (Auto) 22.7 % (20.0-45.0) 15.1 % (20.0-45.0) L Monocytes (%) (Auto) 8.6 % (1.0-10.0) 9.6 % (1.0-10.0) Eosinophils (%) (Auto) 0.6 % (0.0-3.0) 1.2 % (0.0-3.0) Basophils (%) (Auto) 1.1 % (0.0-2.0) 0.9 % (0.0-2.0) Prothrombin Time 14.8 SEC (9.30-11.50) H Prothromb Time International Ratio 1.4 (0.9-1.1) H Activated Partial Thromboplast Time 32 SEC (23-33) Urine Color Isi Urine Appearance Slightly cloudy Urine pH 5 (4.5-8.0) Urine Specific [place] 1.020 (1.005-1.035) Urine Protein 1+ (NEGATIVE) H Urine Glucose (UA) Negative (NEGATIVE) Urine Ketones 2+ (NEGATIVE) H Urine Blood 1+ (NEGATIVE) H Urine Nitrite Negative (NEGATIVE) Urine Bilirubin 1+ (NEGATIVE) H Urine Ictotest Negative (NEGATIVE) Urine Urobilinogen 8 MG/DL (0.0-1.0) H Urine Leukocyte Esterase 1+ (NEGATIVE) H Urine RBC 2-4 /HPF (0 - 0) H Urine WBC 2-4 /HPF (0 - 0) Urine Squamous Epithelial Cells Occasional /LPF Urine Amorphous Sediment Moderate /LPF (NONE) H Urine Bacteria Occasional /HPF (NONE) Urine Hyaline Casts 2-4 /LPF (NONE) H Urine Granular Casts 2-4 /LPF (NONE) H Urine Fine Granular Casts 0-2 /LPF (NONE) H Sodium Level 145 MMOL/L (136-145) 146 MMOL/L (136-145) H Potassium Level 3.9 MMOL/L (3.5-5.1) 3.7 MMOL/L (3.5-5.1) Chloride Level 112 MMOL/L (98-107) H 113 MMOL/L (98-107) H Carbon Dioxide Level 21 MMOL/L (21-32) 25 MMOL/L (21-32) Anion Gap 12 mmol/L (5-15) 8 mmol/L (5-15) Blood Urea Nitrogen 38 mg/dL (7-18) H 34 mg/dL (7-18) H Creatinine 1.4 MG/DL (0.55-1.30) H 1.2 MG/DL (0.55-1.30) Estimat Glomerular Filtration Rate mL/min (>60) mL/min (>60) Glucose Level 74 MG/DL (74-106) 62 MG/DL (74-106) L Lactic Acid Level 2.30 mmol/L (0.4-2.0) H 2.20 mmol/L (0.66-2.22) Calcium Level 8.9 MG/DL (8.5-10.1) 8.8 MG/DL (8.5-10.1) Phosphorus Level 3.7 MG/DL (2.5-4.9) Magnesium Level 1.9 MG/DL (1.8-2.4) Total Bilirubin 2.7 MG/DL (0.2-1.0) H Direct Bilirubin 1.3 MG/DL (0.0-0.3) H Aspartate Amino Transf (AST/SGOT) 24 U/L (15-37) Alanine Aminotransferase (ALT/SGPT) < 6 U/L (12-78) L Alkaline Phosphatase 53 U/L (46-116) Total Creatine Kinase 35 U/L (26-308) Creatine Kinase MB 0.8 NG/ML (0.0-3.6) Creatine Kinase MB Relative Index 2.2 Troponin I 0.151 ng/mL (0.000-0.056) Total Protein 6.4 G/DL (6.4-8.2) Albumin 2.7 G/DL (3.4-5.0) L Globulin 3.7 g/dL Albumin/Globulin Ratio 0.7 (1.0-2.7) L Digoxin Level > 5.0 NG/ML (0.5-2.0) *H Hemoglobin A1c Pending Height (Feet): 5 Height (Inches): 11.00 Weight (Pounds): 120 Medications Current Medications Medications (Trade) Dose Ordered Sig/Fritz Route PRN Reason Start Time Stop Time Status Last Admin Dose Admin Apixaban (Eliquis) 2.5 mg BID ORAL 09/10/18 09:00 10/10/18 08:59 Carvedilol (Coreg) 3.125 mg EVERY 12 HOURS ORAL 09/09/18 21:00 10/09/18 20:59 09/09/18 20:54 Famotidine (Pepcid) 20 mg DAILY ORAL 09/10/18 09:00 10/10/18 08:59 Furosemide (Lasix) 40 mg DAILY ORAL 09/10/18 09:00 10/10/18 08:59 Heparin Sodium (Porcine) (Heparin 5000 units/ml) 5,000 units EVERY 12 HOURS SUBQ 09/09/18 21:00 10/09/18 20:59 09/09/18 20:56 Losartan Potassium (Cozaar) 25 mg DAILY ORAL 09/10/18 09:00 10/10/18 08:59 Spironolactone (Aldactone) 25 mg DAILY ORAL 09/10/18 09:00 10/10/18 08:59 Vitamin A/Vitamin D (A & D Oint) 1 applic EVERY 12 HOURS TOPIC 09/09/18 21:00 10/09/18 20:59 09/09/18 20:56 Assessment/Plan Internal Medicine History and Physical Covering MD: Melvi SEGUNDO 09/10/18 ID Patient is a 77-year-old male well known to me from prior admission, who presented after increased generalized weakness. Patient had gradual onset of symptoms. He was noted to have decreased appetite over the past few days. He had been losing weight. Patient had prior history of atrial fibrillation as well as congestive heart failure. He normally takes Lasix as well as Coreg and Losartan. He had been unable to ambulate without assistance. In prior noted to have decreased plt count, heme was consulted. Allergies: No Known Allergies (Unverified , 01/07/18) Patient History Past Medical History: see triage record Reviewed Nursing Documentation: PMH: Agreed; PSxH: Agreed Nursing Documentation-PMH Past Medical History: No History, Except For Hx Cardiac Problems: Yes Hx Hypertension: Yes Hx COPD: Yes Hx Cancer: No Hx Gastrointestinal Problems: No Hx Neurological Problems: No Review of Systems Negative except mentioned in HPI Physical Exam Vital Signs Date Time Temp Pulse Resp B/P (MAP) Pulse Ox O2 Delivery O2 Flow Rate FiO2 09/09/18 13:16 97.3 87 16 86/66 (73) 100 Room Air General Appearance: normal inspection, alert, thin, Chronically Ill Head: atraumatic ENT: normal ENT inspection, normal voice Neck: normal inspection, supple, no bony tend, limited range of motion Respiratory: normal inspection, lungs clear, normal breath sounds Cardiovascular: regular rate, rhythm, no edema Gastrointestinal: normal inspection, normal bowel sounds, non tender Genitourinary: no CVA tenderness Musculoskeletal: normal inspection, back normal Neurologic: normal inspection, alert, responsive, speech normal Psychiatric: normal inspection, judgement/insight normal Labs: reviewed Imaging: as above Assessment and Recs: # Atrial flutter with rapid ventricular response. --> per cards on coreg and eliquis --> Cards has been consulted --> would benefit from atrial flutter ablation once stabilized --> echo shows eg of 20%, and will review cath report # Thrombocytopenia - most likely related to PNA infection. --> Hep panel and HIV are both negative --> US abd has been reordered given coagulopathy --> Peripheral smear ordered to evaluate for blasts /schistocytes --> abx and other meds have been reviewed --> ok for ppx if plt >50k w/ with lovenox --> plt 111-->106k # Acute right leg DVT hx --> eliquis ok to continue --> cards aware from prior admission # Anemia of chronic disease due to underlying chronic medical issues, multifactorial. --> Anemia w/u has been reviewed. Ferritin at 450. --> WIll trend CBC as needed. --> hgb goal >7. Transfuse prn. --> No evidence of hemolysis noted. # Courtney --> as per renal # PNA/right hilar mass. CXR has been reviewed. --> May need abx --> pulm eval prn # Myocardial infarction. --> Cardiac cath per before # Psych disorder -- per [facility] Consultants to follow. Bruce Loya MD Sep 18, 2018 11:51
[2018-09-18 11:58] LABS: INR 1.1 (0.9-1.1)
[2018-09-18 12:03] VITALS: BP 98/64
--- NOTE | 2018-09-18 13:00 | NUR ---
INTER-FACILITY TRANSFER: Patient transferred to [facility], per Dr. Watt. Report given to ANGIE Zelaya of [facility] and [facility] staff. Patient transferred with no medication. Belongings verified upon transferr and given to patient's and [facility]. Patient's transported with patient via [facility] to SNF. Wound care photos done per protocol. Patient in stable condition.
[2018-09-18] MEDS ORDERED: Warfarin Sodium 5mg ORAL SCH (17:00)
[2018-09-18] MEDS ORDERED: LOVENOX10 M1 SUBQ (23:49)
[2018-09-18] MEDS ORDERED: ZINC OXIDE56.7 G1 TP (23:49)
[2018-09-18] MEDS ORDERED: LOSARTAN POTASS25 MG GT (23:49)
[2018-09-18] MEDS ORDERED: FAMOTIDINE20 MG PO (23:49)
[2018-09-18] MEDS ORDERED: CARVEDILOL3.125 MG PO (23:49)
[2018-09-18] MEDS ORDERED: FUROSEMIDE40 MG GT (23:49)
[2018-09-18] MEDS ORDERED: ACETAMINOPHEN325 M1 PO (23:49)
[2018-09-18] MEDS ORDERED: SPIRONOLACTONE100 MG GT (23:49)
[2018-09-18] MEDS ORDERED: ZYPREXA2.5 MG PO (23:49)
[2018-09-18] MEDS ORDERED: COUMADIN4 MG PO (23:49)
[2018-09-19] MEDS ORDERED: Spironolactone 25mg tab ORAL SCH (09:00)
--- NOTE | 2018-09-19 15:35 | Diagnostic Imaging Report ---
Indications: Dysphagia Technique: Patient ingested multiple substances under the supervision of speech pathology. Video fluoroscopic recording performed. Total fluoroscopy time 254.7 seconds. Total dose area product 0.29027 mGycm2 Total number of images-11 Comparison: none Findings: There are multiple episodes of penetration of thin liquid barium demonstrated. No dafne aspiration. With ingestion of nectar and honey thick liquid barium as well as barium puree, no aspiration or penetration. There is occasional early pooling. Impression: Positive for penetration of thin liquid barium Please refer to speech pathology report for more detailed analysis
[2018-09-19] MEDS ORDERED: SPIRONOLACTONE25 MG ORAL (19:11)
--- NOTE | 2018-09-22 08:23 | Discharge Summary ---
Discharge Summary Discharge Summary _ DATE OF ADMISSION: 09/09/2018 DATE OF DISCHARGE: 09/18/2018 DISCHARGED BY: Dr. Watt REASON FOR ADMISSION: 77 years old male with past medical history of hypertension, COPD, congestive heart failure, atrial fibrillation, history of DVT right leg, presented with generalized weakness. Patient was unable to ambulate without assistance. Patient lost his appetite. Upon evaluation vital signs revealed low blood pressure 86/66. Laboratory work-up revealed no leukocytosis, stable hemoglobin and hematocrit. Urinalysis revealed +1 protein +2 ketones but no evidence of UTI. Stable electrolytes. BUN 38, creatinine 1.4. Total bilirubin 2.7, direct bilirubin 1.3. Stable AST and ALT. Troponin elevated 0.151. EKG revealed atrial flutter with variable AV block. Left axis deviation. Pulmonary disease pattern. Albumin 2.7. Lactic acid 2.2. Total CK 35. Chest x-ray demonstrated cardiomegaly and bilateral pleural effusion. In ED patient received aspirin, digoxin, and IV fluids. Patient subsequently admitted to direct observational unit for further management. CONSULTANTS: grinder setup operator Dr. Alvarez ID specialist Dr. Galindo GI specialist Dr. Boo slot shift supervisor/oncologist Dr. Weathers surgery Dr. Grimm psychiatrist [facility]: Patient admitted to [facility]. Coo closely followed. Patient continued to have atrial flutter/atrial fibrillation with rapid ventricular response. Patient started on beta-jewel. Digoxin level found to be above 5, digoxin was discontinued. Anticoagulation with Coumadin resumed. Patient had evidence of atrial flutter in December 2017. Coo recommended to consider atrial flutter ablation as outpatient. Echocardiogram revealed global left ventricular hypokinesis with left ventricular ejection fraction 15%. Mild left ventricular hypertrophy. Left pleural effusion. Mobile echogenic material in left ventricle. Severe aortic stenosis. Mild to moderate mitral regurgitation. Mitral inflow indicated increased left atrial pressure, suggestive of restrictive pattern grade 3. Right ventricular systolic pressure of 49 , consistent with moderate pulmonary hypertension. Patient started on Lovenox and Coumadin with bridge after therapeutic INR achieved. Co Pilot followed. Coo recommended to consider ICD placement and atrial flutter ablation as outpatient. Venous duplex left upper extremity reveal no evidence of acute DVT. Patient had a history of acute right leg DVT and prior was on Eliquis. Patient switched to Lovenox and Coumadin due to mobile left ventricular clot noted on echocardiogram with goal to keep INR between 2 and 3, as mentioned above. Abdominal ultrasound revealed bilateral pleural effusion. Gallstones. Bilirubin and LFT were closely monitored. Bilirubin trended down from 2.7 down to 1.8 and direct bilirubin from 1.3 down to 0.7. Stable ALT and and AST. Per surgeon no acute surgical intervention was necessarily. GI specialist closely followed. Swallow evaluation demonstrated high silent aspiration risk. Speech therapist recommended non-oral feeding and videoswallow evaluation. Patient subsequently undergone video swallow evaluation which revealed penetration of thin liquid barium. Speech therapist recommended for quality of life oral gratification diet with texture as per speech therapist recommendation and continues with non-oral feeding. Patient subsequently undergone EGD and upper endoscopy with PEG placement due to failure to thrive and dysphagia.. Patient started tube feeding and protein supplements as per registered veterinary technician recommendation. Aspiration precaution maintained. G-tube site care continued. Abdominal binder initially was placed. Hemoglobin and hematocrit were closely monitored with goal to keep hemoglobin above 7. Anemia work-up was consistent with anemia of chronic disease. Ferritin 450. No evidence of hemolysis. Hemoglobin and hematocrit remained stable prior to discharge: hemoglobin 10.7, hematocrit 34.4. GI prophylaxis provided. Infectious disease specialist followed. Blood culture drawn in the emergency department due to lactic acidosis revealed Staphylococci simulans. Per ID specialist positive blood culture with Staph simulans were likely contamination. He recommended to observe patient off antibiotic. No leukocytosis, no fever. Surgeon followed for decubitus ulcer present on admission, un-stageable. Wound care provided as per surgeon recommendation. Continue wound care at the facility. Psychiatrist followed. Per psychiatrist patient had acute encephalopathy and failure to thrive. Patient started on low-dose of Zyprexa Patient was working with physical therap.. Fall precaution maintained. Pl[facility] was [facility] at the [facility] facility for continuation of care. Patient was stable for transfer. FINAL DIAGNOSES: Atrial flutter with rapid ventricular response Severe nonischemic cardiomyopathy with ejection fraction 15% Mobile LV clot History of acute DVT right leg History of hypertension Severe aortic stenosis Nonsustained ventricular tachycardia likely due to severe nonischemic cardiomyopathy Acute encephalopathy Dysphagia, status post PEG Anemia of chronic disease. Status post EGD and PEG placement Cholelithiasis Abnormal LFT Acute kidney injury Decubitus ulcer, present on admission, un-stageable Severe protein calorie malnutrition DISCHARGE MEDICATIONS: List of medication was sent to accepting facility. DISCHARGE INSTRUCTIONS: Patient was discharged to the prison facility. Follow up with medical doctor at the facility. I have been assigned to dictate discharge summary for this account. I was not involved in the patient's management. Dania Kendrick NP Sep 22, 2018 08:23
== END 2018-09-18 13:00 | DRG 308 ==
LOC: EDBEDREQSVC 13:29 → EMR 13:30 → EDBEDREQSVC 13:36 → EDBEDREQ 13:36 → EDBEDREQSVC 15:40 → EDBEDREQ 15:41 → 2W 16:10
PROC: 0DH63UZ Insertion of Feeding Device into Stomach, Percutaneous Approach (ICD-10-PCS; principal; 2018-09-16 08:28)
DX: I48.92 Unspecified atrial flutter (principal); J18.9 Pneumonia, unspecified organism; E43 Unspecified severe protein-calorie malnutrition; N17.9 Acute kidney failure, unspecified; G93.40 Encephalopathy, unspecified; Z68.1 Body mass index [BMI] 19.9 or less, adult; L89.150 Pressure ulcer of sacral region, unstageable; D69.6 Thrombocytopenia, unspecified; D63.8 Anemia in other chronic diseases classified elsewhere; I25.2 Old myocardial infarction; Z79.01 Long term (current) use of anticoagulants; I11.0 Hypertensive heart disease with heart failure; J44.9 Chronic obstructive pulmonary disease, unspecified; Z86.718 Personal history of other venous thrombosis and embolism; I35.0 Nonrheumatic aortic (valve) stenosis; I34.0 Nonrheumatic mitral (valve) insufficiency; K80.20 Calculus of gallbladder without cholecystitis without obstruction; R13.10 Dysphagia, unspecified; R62.7 Adult failure to thrive; I42.8 Other cardiomyopathies; F03.90 Unspecified dementia, unspecified severity, without behavioral disturbance, psychotic disturbance, mood disturbance, and anxiety; L89.220 Pressure ulcer of left hip, unstageable; F99 Mental disorder, not otherwise specified; K29.70 Gastritis, unspecified, without bleeding; I50.9 Heart failure, unspecified
CPT/HCPCS: 36415; 71045; 74230; 76700; 80048; 80053; 80162; 81003; 82248; 82550; 82553; 82746; 82962; 83036; 83605; 83690; 83735; 84100; 84484; 85025; 85610; 85730; 87040; 87181; 93005; 93306; 93971; 94003; 94150; 96374; 99285; J8499

== ENCOUNTER 2018-09-18 22:59 | Inpatient (IN) | payer MEDICARE ==
[~2018-09-18] VITALS: Ht 172.7 cm; Wt 59.4 kg
[~2018-09-18 22:59] MED LIST changes: +ELIQUIS5 MG PO; +LOSARTAN POTASS25 MG ORAL; +SPIRONOLACTONE100 MG ORAL; +SPIRONOLACTONE25 MG ORAL; +ZANTAC150 MG ORAL
--- NOTE | 2018-09-18 23:31 | Emergency Room Report ---
History of Present Illness General Chief Complaint: Altered Level of Consciousness Source: Patient, Medical Record, EMS Present Illness HPI HPI: 77-year-old male with a history of atrial fibrillation on Eliquis, chronic anemia, CAD, previous admissions for pneumonia, thrombocytopenia presents from nursing facility for altered mental status and hypotension. Patient was discharged from this hospital earlier today and returns after [facility] found his blood pressure in the mid 70s and the patient was confused according to the his and with [facility] staff which we spoke to. He stated he was oriented to self only. There is no report of trauma. The patient has no complaints at this time but is oriented to self only cannot provide any significant history. He arrives with stable vital signs and while he is confused he is pleasant. PMH: Atrial fibrillation, DVT, previous pneumonia, thrombus cytopenia, anemia Allergies: No documented allergies Social Hx: Cannot obtain at this time from patient due to clinical condition Allergies: Coded Allergies: No Known Allergies (Unverified , 01/07/18) Patient History Limited by: medical condition Nursing Documentation-PMH Hx Cardiac Problems: Yes - afib Hx Hypertension: Yes Hx COPD: Yes Hx Cancer: No Hx Gastrointestinal Problems: No Hx Neurological Problems: Yes Hx Weakness: Yes Review of Systems All Other Systems: limited - Due to altered mental status on presentation Physical Exam Vital Signs Date Time Temp Pulse Resp B/P (MAP) Pulse Ox O2 Delivery O2 Flow Rate FiO2 09/18/18 23:01 98.6 82 20 116/62 (80) 96 Room Air General: Awake, no acute distress, hypotensive during my exam with systolic pressures in the high 80s HEENT: NC/AT. EOMI. PERRLA, pupils approximately 2 mm and reactive bilaterally. No obvious facial trauma. No malocclusion. Dry mucous membranes Neck: Supple, trachea midline Chest Wall: No tenderness, no deformity Cardiovascular: Irregularly irregular rhythm, regular rate Resp: Normal work of breathing. No cough, wheezing or crackles appreciated Abdomen: Abdomen is soft, nondistended. Nontender Skin: Multiple ulcers over the back and buttock n MSK: Appears frail and somewhat cachectic. Moving all extremities though diminished strength in all limbs Neuro: Awake, confused, oriented to self only. Believes it is February, not oriented to current situation or place. Moving all extremities. Sensation appears grossly intact. Procedures Critical Care Time Critical Care Time Critical care time excluding separately billed procedures was 45 minutes Central Line Central Line : Consent: Emergent Central Line Lumen: triple Maximal Sterile Barrier Tech: yes cap, yes mask, yes sterile gown, yes sterile gloves, yes large sterile sheet, yes hand hygiene, yes chlorhexidine prep Central Line Postion: internal jugular (R) Anesthesia: Lidocaine cc's of anesthesia: 3 Complications: none Central Line Post Position: sutured, good blood return, position confirmed w / CXR Attempts: One Patient Tolerated: Well Complications: None Medical Decision Making Diagnostic Impression: Primary Impression: Afib Additional Impressions: Altered mental state Hypotension ER Course This a 77-year-old male with history of atrial fibrillation on Eliquis, recently discharged from the hospital yesterday presents from his assisted living facility for altered mental status and found to be hypotensive. Patient arrived with systolic blood pressures in the 70s and are increasing to the 80s with IV fluid hydration. He does have CHF and therefore we will hydrate the patient slowly though he will require a full sepsis bolus in the end if he can tolerate it. At this time, he has no evidence of respiratory overload or decompensation. He is afebrile, has atrial fibrillation with a regular rate and remains hypotensive. He will receive IV fluids, will order labs as well as a CT scan of the head and chest x-ray. He will require admission EKG Diagnostic Results EKG Time: 23:05 Rate: normal Rhythm: other - Atrial fibrillation ST Segments: no acute changes Rhythm Strip Diag. Results Rhythm Strip Time: 23:05 EP Interpretation: yes Rate: 80s Rhythm: other - Irregularly irregular rhythm, atrial fibrillation Chest X-Ray Diagnostic Results Chest X-Ray Diagnostic Results #1: # of Views/Limited/Complete: 1 View Indication: Other - AMS EP Interpretation: Yes Interpretation: no consolidation, no effusion, no pneumothorax Impression: No acute disease Electronically Signed by: Electronically signed by Dr. Federico Patton Chest X-Ray Diagnostic Results #2: Chest X-Ray Ordered: Yes # of Views/Limited/Complete: 1 View Indication: Other - Central line placement check EP Interpretation: Yes Interpretation: no consolidation, no effusion, no pneumothorax, other - Central line in appropriate position Electronically Signed by: Electronically signed by Dr. Federico Patton CT/MRI/US Diagnostic Results CT/MRI/US Diagnostic Results : Impression No evidence of large bleed or mass. Diffuse cortical atrophy. Official read pending Reevaluation Time: 02:00 Last Vital Signs Date Time Temp Pulse Resp B/P (MAP) Pulse Ox O2 Delivery O2 Flow Rate FiO2 09/18/18 23:01 98.6 82 20 116/62 (80) 96 Room Air Status: unchanged Reevaluation Impression Labs show a white count is within normal limits, hemoglobin of 10.6, elevated troponin of 1.24 however this is within the patient's baseline. His BN peptide is greater than 35,000 but still he shows no sign of respiratory distress. Letter lites largely within normal limits, chest x-ray shows no infiltrate. Patient remained hypotensive and required levo fed drip. A right internal jugular line was placed by me without difficulty. Please see separate procedure note for full details. He will require admission to the intensive care unit. Please note that this report is being documented using [employer] technology. This can lead to erroneous entry secondary to incorrect interpretation by the dictating instrument. Disposition: ADMITTED INPATIENT Condition: Serious Federico Patton MD Sep 18, 2018 23:31
[2018-09-18 23:37] LABS: APPEARANCE,URINE CLEAR; BILIRUBIN, URINE NEGATIVE (NEGATIVE); GLUCOSE, URINE (UA) NEGATIVE (NEGATIVE); KETONES,URINE NEGATIVE (NEGATIVE); LEUKOCYTE ESTERASE ,URINE 1+ (NEGATIVE); NITRITE,URINE NEGATIVE (NEGATIVE); PH,URINE 5 (4.5-8.0); PROTEIN,URINE NEGATIVE (NEGATIVE); UROBILINOGEN,URINE 1 MG/DL (0.0-1.0)
[2018-09-18 23:37] LABS: BASOPHILS % (AUTO) 1.4 % (0.0-2.0); EOSINOPHILS % (AUTO) 0.6 % (0.0-3.0); HEMATOCRIT 32.8 % (42.0-52.0); HEMOGLOBIN 10.4 G/DL (14.2-18.0); LYMPHOCYTES % (AUTO) 28.8 % (20.0-45.0); MEAN CORPUSCULAR VOLUME 106 FL (80-99); MONOCYTES % (AUTO) 5.8 % (1.0-10.0); NEUTROPHILS % (AUTO) 63.5 % (45.0-75.0); PLATELET COUNT 159 K/UL (150-450); RED BLOOD COUNT 3.09 M/UL (4.70-6.10)
[2018-09-18 23:44] LABS: COLOR,URINE YELLOW
[2018-09-18 23:49] VITALS: BP 116/62
[2018-09-18 23:49] LABS: ANION GAP 6 mmol/L (5-15); BLOOD UREA NITROGEN 33 mg/dL (7-18); CARBON DIOXIDE 28 MMOL/L (21-32); CHLORIDE 108 MMOL/L (98-107); CREATININE 1.2 MG/DL (0.55-1.30); POTASSIUM 4.4 MMOL/L (3.5-5.1); SODIUM 142 MMOL/L (136-145)
[2018-09-18] MEDS ORDERED: ZINC OXIDE56.7 G1 TP (23:49)
[2018-09-18] MEDS ORDERED: FUROSEMIDE40 MG GT (23:49)
[2018-09-18] MEDS ORDERED: COUMADIN4 MG PO (23:49)
[2018-09-18] MEDS ORDERED: CARVEDILOL3.125 MG PO (23:49)
[2018-09-18] MEDS ORDERED: ACETAMINOPHEN325 M1 PO (23:49)
[2018-09-18] MEDS ORDERED: SPIRONOLACTONE100 MG GT (23:49)
[2018-09-18] MEDS ORDERED: FAMOTIDINE20 MG PO (23:49)
[2018-09-18] MEDS ORDERED: ZYPREXA2.5 MG PO (23:49)
[2018-09-18] MEDS ORDERED: LOVENOX10 M1 SUBQ (23:49)
[2018-09-18] MEDS ORDERED: LOSARTAN POTASS25 MG GT (23:49)
[2018-09-19] VITALS (54 sets, daily range): BP systolic 81–116; BP diastolic 62–90
[2018-09-19 00:02] LABS: ALANINE AMINOTRANSFERASE < 6 U/L (12-78); ALBUMIN 2.6 G/DL (3.4-5.0); ALBUMIN/GLOBULIN RATIO 0.5 (1.0-2.7); ALKALINE PHOSPHATASE 88 U/L (46-116); ASPARTATE AMINO TRANSFERASE 24 U/L (15-37); BILIRUBIN,TOTAL 1.5 MG/DL (0.2-1.0); CKMB 0.9 NG/ML (0.0-3.6)
[2018-09-19 00:05] LABS: BILIRUBIN,DIRECT 0.7 MG/DL (0.0-0.3)
--- NOTE | 2018-09-19 00:08 | Diagnostic Imaging Report ---
Indications: Altered mental status Technique: Spiral acquisitions obtained through the brain. Angled axial and coronal 5 x 5 mm slices were reconstructed. Total dose length product 1446.46 mGycm. CTDI vol(s) 70.38 mGy. Dose reduction achieved using automated exposure control Comparison: None. Findings: Small areas of encephalomalacia are seen in the right frontal operculum and in the right parietal lobe. No acute intracranial hemorrhage or edema, mass effect, or midline shift. There is age-related enlargement of the ventricles and extra-axial CSF spaces. Periventricular deep white matter low-attenuation consistent with chronic microvascular ischemic change. Otherwise normal hoang-white differentiation. Visualized orbits and sinuses are unremarkable. The mastoids are clear. 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 The CT scanner at [facility] is accredited by the [place] [employer] and the scans are performed using protocols designed to limit radiation exposure to as low as reasonably achievable to attain images of sufficient resolution adequate for diagnostic evaluation.
[2018-09-19] MEDS ORDERED: Aspirin Baby 81mg ORAL ONE (00:45)
[2018-09-19] MEDS ORDERED: Albuterol/Ipratropium 3ml neb HHN PRN (03:30)
[2018-09-19] MEDS ORDERED: D5 1/2NS 1,000 ML IV SCH (03:45)
[2018-09-19] MEDS ORDERED: Heparin 25,000u/D5W 500ml (VTE/AF) IV SCH ×2 (04:15)
[2018-09-19] MEDS: Vancomycin 1.25gm Premix IVPB SCH (04:37)
[2018-09-19 04:56] LABS: INR 1.1 (0.9-1.1)
[2018-09-19 04:58] LABS: BASOPHILS % (AUTO) 1.2 % (0.0-2.0); EOSINOPHILS % (AUTO) 0.6 % (0.0-3.0); HEMOGLOBIN 10.6 G/DL (14.2-18.0); LYMPHOCYTES % (AUTO) 21.3 % (20.0-45.0); MEAN CORPUSCULAR VOLUME 108 FL (80-99); MONOCYTES % (AUTO) 7.3 % (1.0-10.0); NEUTROPHILS % (AUTO) 69.6 % (45.0-75.0); PLATELET COUNT 174 K/UL (150-450); RED BLOOD COUNT 3.15 M/UL (4.70-6.10); RED CELL DISTRIBUTION WIDTH 16.1 % (11.6-14.8); WHITE BLOOD COUNT 7.5 K/UL (4.8-10.8)
[2018-09-19 05:21] LABS: ALANINE AMINOTRANSFERASE 6 U/L (12-78); ALBUMIN 2.2 G/DL (3.4-5.0); ALKALINE PHOSPHATASE 69 U/L (46-116); ANION GAP 9 mmol/L (5-15); ASPARTATE AMINO TRANSFERASE 17 U/L (15-37); BILIRUBIN,DIRECT 0.7 MG/DL (0.0-0.3); BILIRUBIN,TOTAL 1.3 MG/DL (0.2-1.0); BLOOD UREA NITROGEN 33 mg/dL (7-18); CALCIUM 8.3 MG/DL (8.5-10.1); CARBON DIOXIDE 25 MMOL/L (21-32); CHLORIDE 111 MMOL/L (98-107); CREATININE 1.1 MG/DL (0.55-1.30); PHOSPHORUS 2.9 MG/DL (2.5-4.9); SODIUM 145 MMOL/L (136-145)
[2018-09-19] MEDS: Piperacillin/Tazobactam 4.5 GM in NS 110 ML IVPB SCH ×3 (05:37→21:36)
--- NOTE | 2018-09-19 05:37 | Pulmonolgy Critical Care Note ---
Critical Care - Asmt/Plan Assessment/Plan: Pulmonary CCM Consultation HPI Patient is a 77-year-old male recently discharged from the hospital, s/p G-tube for Failure to thrive, has a history of atrial fibrillation/DVT on Eliquis, CHF with EF 20%, CAD with previous NSTEMI, Aortic stenosis, Mitral Regurgitation, Chronic anemia, thromocytopenia, previous admissions for pneumonia, presents from nursing facility for altered mental status and hypotension, decubitus ulcers, recent positive blood culture with staph simulans. At the [facility] was noted to have blood pressure in the mid 70s, was confused, oriented to self only. There is no report of trauma. The patient has no complaints at this time but is oriented to self only cannot provide any significant history. Started on Levophed in the ED - currently 7 mcg/min PMH: Failure to thrive, has a history of atrial fibrillation/DVT on Eliquis, CHF with EF 20%, CAD with previous NSTEMI, Aortic stenosis, Mitral Regurgitation , Hypertension, Chronic anemia, thromocytopenia, previous admissions for pneumonia, thrombocytopenia presents from nursing facility for altered mental status and hypotension, decubitus ulcers, recent positive blood culture with staph simulans Allergies: No documented allergies Allergies: No Known Allergies All Other Systems: limited - Due to altered mental status on presentation Physical Exam Vital Signs Noted Date Time Temp Pulse Resp B/P (MAP) Pulse Ox O2 Delivery O2 Flow Rate FiO2 09/18/18 23:01 98.6 82 20 116/62 (80) 96 Room Air On Levophed General: Chronically ill, wasted, no acute distress,RIJ line HEENT: NC/AT. EOMI. PERRLA, pupils equal and reactive bilaterally. No obvious facial trauma. Dry mucous membranes Neck: Supple, trachea midline Chest Wall: No tenderness, no deformity Cardiovascular: Irregularly irregular rhythm, regular rate, HS1, HS2, ESM Resp: Normal work of breathing. CTAB Abdomen: Abdomen is soft, nondistended. Nontender Skin: Multiple ulcers over the back and buttock n MSK: Appears frail and somewhat cachectic. Moving all extremities though diminished strength in all limbs Neuro: Awake, confused, oriented to self only. No focal signs, no seizures EKG: Rate: normal Rhythm: other - Atrial fibrillation ST Segments: no acute changes CXR: Interim placement right jugular central venous catheter, tip of which projects at the level of the high right atrium. Again demonstrated is bilateral interstitial and airspace edema, bilateral pleural effusions, and cardiomegaly. There is no evidence of pneumothorax. CT Head: No acute intracranial findings. Atrophy. Chronic-appearing ischemic changes and encephalomalacia. Labs: Noted Assessment Severe Congestive Heart Failure Bilateral pleural effusions Hypotension Probable Sepsis Possible pneumonia Decubitus ulcers AMS Failure to thrive, has a history of atrial fibrillation/DVT on Eliquis Non Ischemic [employer], CHF with EF 20% CAD with previous NSTEMI - currently elevated Troponin Aortic stenosis, Mitral Regurgitation H/o hypertension Chronic anemia, thromocytopenia Previous admissions for pneumonia Plan IV Antibiotics Levophed Aspiration Precautions Heparin gtt - hold NOACS for now Consider thoracentesis once more stable ASA ABG BiPAP PRN Duonebs PRN/CPT Lasix PRN IV 25% Albumin Cautious IVF Monitor Glucose Hold Feeds for Now Monitor labs PPX Critical Care - Objective Last 24 Hour Vital Signs Date Time Temp Pulse Resp B/P (MAP) Pulse Ox O2 Delivery O2 Flow Rate FiO2 09/19/18 04:29 103/78 09/19/18 04:00 Venturi Mask 40.0 09/19/18 04:00 Venturi Mask 15.0 09/19/18 04:00 83 09/19/18 01:53 102/74 09/19/18 01:48 98.9 81 21 100/70 97 Venturi Mask 12.0 50 09/19/18 01:48 100/70 09/19/18 01:43 106/82 09/19/18 01:43 98.9 81 21 106/82 97 Venturi Mask 12.0 50 09/19/18 01:38 98.9 81 21 88/67 94 Venturi Mask 12.0 50 09/19/18 01:38 88/67 09/19/18 01:33 98.9 81 21 83/64 97 Venturi Mask 12.0 50 09/19/18 01:33 86/66 09/19/18 00:09 81 21 Venturi Mask 12.0 50 09/19/18 00:09 98.9 81 21 116/62 94 Venturi Mask 12.0 50 09/18/18 23:49 98.9 98 22 116/62 94 Non-Rebreather 15.0 09/18/18 23:49 82 20 Non-Rebreather 15.0 09/18/18 23:01 98.6 82 20 116/62 (80) 96 Room Air Accucheck: 73 Critical Care - Subjective ROS Limited/Unobtainable: No Condition: critical IV Access: central EKG Rhythm: Atrial Fibrillation FI02: 50 I&O: Intake and Output 09/18/18 09/19/18 18:59 06:59 Intake Total 52.5 ml Balance 52.5 ml Intake IV Total 52.5 ml Robbin Diana MD Sep 19, 2018 05:37
--- NOTE | 2018-09-19 09:09 | Diagnostic Imaging Report ---
Indication: Status post central line placement Technique: One view of the chest Comparison: One hour earlier Findings: Interim placement right jugular central venous catheter, tip of which projects at the level of the high right atrium. Again demonstrated is bilateral interstitial and airspace edema, bilateral pleural effusions, and cardiomegaly. There is no evidence of pneumothorax. Impression: Satisfactory right internal jugular central venous catheter placement, no radiographically evident complication Other stable findings as described
[2018-09-19] MEDS: Heparin 25,000u/D5W 500ml (VTE/AF) IV SCH (09:26)
[2018-09-19] MEDS: Aspirin Baby 81mg GT SCH (09:27)
[2018-09-19] MEDS: Pantoprazole Inj IVP SCH (09:27)
--- NOTE | 2018-09-19 09:52 | Nephrology Progress Note ---
Assessment/Plan Plan [id number] full note dictated Objective Objective Last 24 Hour Vital Signs Date Time Temp Pulse Resp B/P (MAP) Pulse Ox O2 Delivery O2 Flow Rate FiO2 09/19/18 09:17 66 18 100 4.0 30 09/19/18 09:03 73 16 100 Facial 40 09/19/18 08:23 78 16 100 Bi-Pap 40 09/19/18 08:23 78 16 100 Facial 40 09/19/18 08:00 Venturi Mask 12.0 09/19/18 07:30 97.6 81 12 99/77 (84) 100 09/19/18 07:17 100 Venturi Mask 12.0 50 09/19/18 07:00 71 14 102/70 (81) 100 09/19/18 06:30 72 14 94/70 (78) 100 09/19/18 06:00 108/88 09/19/18 06:00 79 14 108/88 (95) 100 09/19/18 05:30 87 13 103/76 (85) 100 09/19/18 05:00 87 13 93/74 (80) 100 09/19/18 05:00 93/74 09/19/18 04:45 87 14 101/81 (88) 100 09/19/18 04:30 90 13 105/78 (87) 100 09/19/18 04:29 103/78 09/19/18 04:00 Venturi Mask 40.0 09/19/18 04:00 84 17 100 09/19/18 04:00 Venturi Mask 15.0 09/19/18 04:00 83 09/19/18 03:30 88 15 109/76 (87) 100 09/19/18 03:15 98 18 110/77 (88) 100 09/19/18 03:00 98.5 94 103/73 (83) 09/19/18 02:45 98.9 81 21 102/74 97 Venturi Mask 12.0 50 09/19/18 01:53 102/74 09/19/18 01:48 98.9 81 21 100/70 97 Venturi Mask 12.0 50 09/19/18 01:48 100/70 09/19/18 01:43 106/82 09/19/18 01:43 98.9 81 21 106/82 97 Venturi Mask 12.0 50 09/19/18 01:38 98.9 81 21 /67 94 Venturi Mask 12.0 50 09/19/18 01:38 /09/19/18 01:33 98.9 81 21 83/64 97 Venturi Mask 12.0 50 09/19/18 01:33 86/66 09/19/18 00:09 81 21 Venturi Mask 12.0 50 09/19/18 00:09 98.9 81 21 116/62 94 Venturi Mask 12.0 50 09/18/18 23:49 98.9 98 22 116/62 94 Non-Rebreather 15.0 09/18/18 23:49 82 20 Non-Rebreather 15.0 09/18/18 23:01 98.6 82 20 116/62 (80) 96 Room Air Intake and Output 09/18/18 09/19/18 19:00 07:00 Intake Total 653.15 ml Output Total 200 ml Balance 453.15 ml Intake IV Total 653.15 ml Tube Feeding 0 ml Output Urine Total 200 ml Laboratory Tests 09/18/18 23:12: White Blood Count 7.0, Red Blood Count 3.09L, Hemoglobin 10.4L, Hematocrit 32.8L , Mean Corpuscular Volume 106H, Mean Corpuscular Hemoglobin 33.7H, Mean Corpuscular Hemoglobin Concent 31.7L, Red Cell Distribution Width 16.0H, Platelet Count 159, Mean Platelet Volume 9.0, Neutrophils (%) (Auto) 63.5, Lymphocytes (%) (Auto) 28.8, Monocytes (%) (Auto) 5.8, Eosinophils (%) (Auto) 0.6, Basophils (%) (Auto) 1.4, Sodium Level 142, Potassium Level 4.4, Chloride Level 108H, Carbon Dioxide Level 28, Anion Gap 6, Blood Urea Nitrogen 33H, Creatinine 1.2, Estimat Glomerular Filtration Rate , Glucose Level 89, Lactic Acid Level 1.50, Calcium Level 9.0, Total Bilirubin 1.5H, Direct Bilirubin 0.7H , Aspartate Amino Transf (AST/SGOT) 24, Alanine Aminotransferase (ALT/SGPT) < 6L , Alkaline Phosphatase 88, Creatine Kinase MB 0.9, Troponin I 0.124H, Pro-B- Type Natriuretic Peptide > 81661G, Total Protein 7.5, Albumin 2.6L, Globulin 4.9 , Albumin/Globulin Ratio 0.5L 09/18/18 23:25: Urine Color Yellow, Urine Appearance Clear, Urine pH 5, Urine Specific [place] 1.010, Urine Protein Negative, Urine Glucose (UA) Negative, Urine Ketones Negative, Urine Blood Negative, Urine Nitrite Negative, Urine Bilirubin Negative , Urine Urobilinogen 1H, Urine Leukocyte Esterase 1+H, Urine RBC 0-2H, Urine WBC 0-2, Urine Squamous Epithelial Cells None, Urine Bacteria Few 09/19/18 03:36: Arterial Blood pH 7.338L, Arterial Blood Partial Pressure CO2 45.5H, Arterial Blood Partial Pressure O2 175.2H, Arterial Blood HCO3 23.9, Arterial Blood Oxygen Saturation 98.8, Arterial Blood Base Excess -2.0, Asad Test Positive 09/19/18 04:00: White Blood Count 7.5, Red Blood Count 3.15L, Hemoglobin 10.6L, Hematocrit 34.0L , Mean Corpuscular Volume 108H, Mean Corpuscular Hemoglobin 33.5H, Mean Corpuscular Hemoglobin Concent 31.1L, Red Cell Distribution Width 16.1H, Platelet Count 174, Mean Platelet Volume 8.8, Neutrophils (%) (Auto) 69.6, Lymphocytes (%) (Auto) 21.3, Monocytes (%) (Auto) 7.3, Eosinophils (%) (Auto) 0.6, Basophils (%) (Auto) 1.2, Sodium Level 145, Potassium Level 4.0, Chloride Level 111H, Carbon Dioxide Level 25, Anion Gap 9, Blood Urea Nitrogen 33H, Creatinine 1.1, Estimat Glomerular Filtration Rate , Glucose Level 102, Calcium Level 8.3L, Total Bilirubin 1.3H, Direct Bilirubin 0.7H, Aspartate Amino Transf (AST/SGOT) 17, Alanine Aminotransferase (ALT/SGPT) 6L, Alkaline Phosphatase 69, Total Protein 6.3L, Albumin 2.2L, Prothrombin Time 12.0H, Prothromb Time International Ratio 1.1, Activated Partial Thromboplast Time 38H, Phosphorus Level 2.9, Magnesium Level 1.7L 09/19/18 09:00: Arterial Blood pH 7.381, Arterial Blood Partial Pressure CO2 39.7, Arterial Blood Partial Pressure O2 155.2H, Arterial Blood HCO3 23.0, Arterial Blood Oxygen Saturation 98.7, Arterial Blood Base Excess -1.9, Asad Test Positive Height (Feet): 5 Height (Inches): 8.00 Weight (Pounds): 128 Tiffanie Huber MD Sep 19, 2018 09:52
[2018-09-19] MEDS: D5NS 1,000 ML IV SCH (09:58)
[2018-09-19] MEDS: Albuterol/Ipratropium 3ml neb HHN SCH ×4 (11:11→23:00)
--- NOTE | 2018-09-19 13:22 | Cardiology Report ---
APPROVED REPORT EKG Measurement Heart [id number] Atrial fibrillation Left axis deviation Low voltage QRS Nonspecific T wave abnormality Abnormal ECG
--- NOTE | 2018-09-19 13:58 | Diagnostic Imaging Report ---
Indication: Shortness of breath Technique: One view of the chest Comparison: 09/10/2018 Findings: The heart is enlarged. Again demonstrated are bilateral pleural effusions, right greater than left. There is bilateral interstitial and airspace edema, similar to the previous exam on the right, increased on the left. Impression: Cardiomegaly, with evidence of bilateral interstitial and airspace edema and bilateral pleural effusions
[2018-09-19] MEDS ORDERED: DOPAMINE 800mg/250ml 250 ML IV SCH (15:30)
[2018-09-19] MEDS ORDERED: DOBUTamine Inj 500 MG in D5W 210 ML IV SCH (15:30)
--- NOTE | 2018-09-19 15:30 | Cardiac Electrophysiology PN ---
Assessment/Plan Assessment/Plan 1. Atrial flutter with rapid ventricular response 140s. HR 100s. Will load with Digoxin. Off Coreg for low BP and Dobutamine Had atrial flutter in December 2017. Consider atrial flutter ablation as out patient. Dig level > 5 on 09/09 but is off Dig. 2. 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 Cardiac catheterization by pa in December 2017 no CAD. DCed all CHF meds( Cozaar 25 mg daily, Aldactone 12.5 mg daily, and Coreg 3.125 mg b.i.d) Start Dopamine 5 Mcg and Dobutamine 5 mc/min. Will Add Levophed if needed to keep SBP>90 3. 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 History of DVT 5. History of hypertension. 6. Severe MAIK 0.3 7. Dysphagia, S/P PEG 8. 15 beats of nonsustained VT. Due to severe non ischemic CMP. Consider ICD specially for EF 15% as out patient DW RN and admission discharge rn Subjective Subjective DCed to [facility] yesterday but was sent back as he became hypotensive and altered. Now in ICU on Levophed. at bedside Objective Last 24 Hour Vital Signs Date Time Temp Pulse Resp B/P (MAP) Pulse Ox O2 Delivery O2 Flow Rate FiO2 09/19/18 15:00 82 19 100 Nasal Cannula 2.0 28 09/19/18 14:50 85 12 99 Nasal Cannula 2.0 28 09/19/18 11:23 71 13 100 Nasal Cannula 2.0 28 09/19/18 11:11 90 18 99 Venturi Mask 4.0 30 09/19/18 10:30 78 19 100/73 (82) 97 09/19/18 10:00 80 22 104/78 (87) 98 09/19/18 09:30 67 13 97/75 (82) 99 09/19/18 09:17 66 18 100 4.0 30 09/19/18 09:03 73 16 100 Facial 40 09/19/18 08:30 78 23 99/70 (80) 09/19/18 08:23 78 16 100 Bi-Pap 40 09/19/18 08:23 78 16 100 Facial 40 09/19/18 08:00 72 20 97/75 (82) 100 09/19/18 08:00 Venturi Mask 12.0 09/19/18 07:30 97.6 81 12 99/77 (84) 100 09/19/18 07:17 100 Venturi Mask 12.0 50 09/19/18 07:00 71 14 102/70 (81) 100 09/19/18 06:30 72 14 94/70 (78) 100 09/19/18 06:00 108/88 09/19/18 06:00 79 14 108/88 (95) 100 09/19/18 05:30 87 13 103/76 (85) 100 09/19/18 05:00 87 13 93/74 (80) 100 09/19/18 05:00 93/74 09/19/18 04:45 87 14 101/81 (88) 100 09/19/18 04:30 90 13 105/78 (87) 100 09/19/18 04:29 103/78 09/19/18 04:00 Venturi Mask 40.0 09/19/18 04:00 84 17 100 09/19/18 04:00 Venturi Mask 15.0 09/19/18 04:00 83 09/19/18 03:30 88 15 109/76 (87) 100 09/19/18 03:15 98 18 110/77 (88) 100 09/19/18 03:00 98.5 94 103/73 (83) 09/19/18 02:45 98.9 81 21 102/74 97 Venturi Mask 12.0 50 09/19/18 01:53 102/74 09/19/18 01:48 98.9 81 21 100/70 97 Venturi Mask 12.0 50 09/19/18 01:48 100/70 09/19/18 01:43 106/82 09/19/18 01:43 98.9 81 21 106/82 97 Venturi Mask 12.0 50 09/19/18 01:38 98.9 81 21 88/67 94 Venturi Mask 12.0 50 09/19/18 01:38 88/09/19/18 01:33 98.9 81 21 83/64 97 Venturi Mask 12.0 50 09/19/18 01:33 86/66 09/19/18 00:09 81 21 Venturi Mask 12.0 50 09/19/18 00:09 98.9 81 21 116/62 94 Venturi Mask 12.0 50 09/18/18 23:49 98.9 98 22 116/62 94 Non-Rebreather 15.0 09/18/18 23:49 82 20 Non-Rebreather 15.0 09/18/18 23:01 98.6 82 20 11662 (80) 96 Room Air Intake and Output 09/18/18 09/19/18 19:00 07:00 Intake Total 653.15 ml Output Total 200 ml Balance 453.15 ml Intake IV Total 653.15 ml Tube Feeding 0 ml Output Urine Total 200 ml Laboratory Tests Test 09/18/18 23:12 09/18/18 23:25 09/19/18 03:36 09/19/18 04:00 White Blood Count 7.0 K/UL (4.8-10.8) 7.5 K/UL (4.8-10.8) Red Blood Count 3.09 M/UL (4.70-6.10) L 3.15 M/UL (4.70-6.10) L Hemoglobin 10.4 G/DL (14.2-18.0) L 10.6 G/DL (14.2-18.0) L Hematocrit 32.8 % (42.0-52.0) L 34.0 % (42.0-52.0) L Mean Corpuscular Volume 106 FL (80-99) H 108 FL (80-99) H Mean Corpuscular Hemoglobin 33.7 PG (27.0-31.0) H 33.5 PG (27.0-31.0) H Mean Corpuscular Hemoglobin Concent 31.7 G/DL (32.0-36.0) L 31.1 G/DL (32.0-36.0) L Red Cell Distribution Width 16.0 % (11.6-14.8) H 16.1 % (11.6-14.8) H Platelet Count 159 K/UL (150-450) 174 K/UL (150-450) Mean Platelet Volume 9.0 FL (6.5-10.1) 8.8 FL (6.5-10.1) Neutrophils (%) (Auto) 63.5 % (45.0-75.0) 69.6 % (45.0-75.0) Lymphocytes (%) (Auto) 28.8 % (20.0-45.0) 21.3 % (20.0-45.0) Monocytes (%) (Auto) 5.8 % (1.0-10.0) 7.3 % (1.0-10.0) Eosinophils (%) (Auto) 0.6 % (0.0-3.0) 0.6 % (0.0-3.0) Basophils (%) (Auto) 1.4 % (0.0-2.0) 1.2 % (0.0-2.0) Sodium Level 142 MMOL/L (136-145) 145 MMOL/L (136-145) Potassium Level 4.4 MMOL/L (3.5-5.1) 4.0 MMOL/L (3.5-5.1) Chloride Level 108 MMOL/L (98-107) H 111 MMOL/L (98-107) H Carbon Dioxide Level 28 MMOL/L (21-32) 25 MMOL/L (21-32) Anion Gap 6 mmol/L (5-15) 9 mmol/L (5-15) Blood Urea Nitrogen 33 mg/dL (7-18) H 33 mg/dL (7-18) H Creatinine 1.2 MG/DL (0.55-1.30) 1.1 MG/DL (0.55-1.30) Estimat Glomerular Filtration Rate mL/min (>60) mL/min (>60) Glucose Level 89 MG/DL (74-106) 102 MG/DL (74-106) Lactic Acid Level 1.50 mmol/L (0.4-2.0) Calcium Level 9.0 MG/DL (8.5-10.1) 8.3 MG/DL (8.5-10.1) L Total Bilirubin 1.5 MG/DL (0.2-1.0) H 1.3 MG/DL (0.2-1.0) H Direct Bilirubin 0.7 MG/DL (0.0-0.3) H 0.7 MG/DL (0.0-0.3) H Aspartate Amino Transf (AST/SGOT) 24 U/L (15-37) 17 U/L (15-37) Alanine Aminotransferase (ALT/SGPT) < 6 U/L (12-78) L 6 U/L (12-78) L Alkaline Phosphatase 88 U/L (46-116) 69 U/L (46-116) Creatine Kinase MB 0.9 NG/ML (0.0-3.6) Troponin I 0.124 ng/mL (0.000-0.056) Pro-B-Type Natriuretic Peptide > 77687 pg/mL (0-125) H Total Protein 7.5 G/DL (6.4-8.2) 6.3 G/DL (6.4-8.2) L Albumin 2.6 G/DL (3.4-5.0) L 2.2 G/DL (3.4-5.0) L Globulin 4.9 g/dL Albumin/Globulin Ratio 0.5 (1.0-2.7) L Urine Color Yellow Urine Appearance Clear Urine pH 5 (4.5-8.0) Urine Specific [place] 1.010 (1.005-1.035) Urine Protein Negative (NEGATIVE) Urine Glucose (UA) Negative (NEGATIVE) Urine Ketones Negative (NEGATIVE) Urine Blood Negative (NEGATIVE) Urine Nitrite Negative (NEGATIVE) Urine Bilirubin Negative (NEGATIVE) Urine Urobilinogen 1 MG/DL (0.0-1.0) H Urine Leukocyte Esterase 1+ (NEGATIVE) H Urine RBC 0-2 /HPF (0 - 0) H Urine WBC 0-2 /HPF (0 - 0) Urine Squamous Epithelial Cells None /LPF (NONE/OCC) Urine Bacteria Few /HPF (NONE) Arterial Blood pH 7.338 (7.350-7.450) Arterial Blood Partial Pressure CO2 45.5 mmHg (35.0-45.0) H Arterial Blood Partial Pressure O2 175.2 mmHg (75.0-100.0) H Arterial Blood HCO3 23.9 mmol/L (22.0-26.0) Arterial Blood Oxygen Saturation 98.8 % (95-100) Arterial Blood Base Excess -2.0 (-2-2) Asda Test Positive Prothrombin Time 12.0 SEC (9.30-11.50) H Prothromb Time International Ratio 1.1 (0.9-1.1) Activated Partial Thromboplast Time 38 SEC (23-33) H Phosphorus Level 2.9 MG/DL (2.5-4.9) Magnesium Level 1.7 MG/DL (1.8-2.4) L Test 09/19/18 09:00 09/19/18 10:15 Arterial Blood pH 7.381 (7.350-7.450) Arterial Blood Partial Pressure CO2 39.7 mmHg (35.0-45.0) Arterial Blood Partial Pressure O2 155.2 mmHg (75.0-100.0) H Arterial Blood HCO3 23.0 mmol/L (22.0-26.0) Arterial Blood Oxygen Saturation 98.7 % (95-100) Arterial Blood Base Excess -1.9 (-2-2) Asad Test Positive Activated Partial Thromboplast Time 87 SEC (23-33) H Troponin I 0.114 ng/mL (0.000-0.056) Prealbumin Pending Vitamin D 25-Hydroxy Pending 25-Hydroxy Vitamin D2 Pending 25-Hydroxy Vitamin D3 Pending Objective HEAD AND NECK: Face Mask with positive JVD. LUNGS: Coarse rhonchi. CARDIOVASCULAR: Irregular. S1 and S2 with no gallop or murmur. ABDOMEN: Soft.PEG in place EXTREMITIES: No pitting edema. Antonio Conde MD Sep 19, 2018 15:30
[2018-09-19] MEDS ORDERED: DOPAmine 400mg/250ml Premix IV SCH (15:39)
[2018-09-19] MEDS ORDERED: DOBUTamine 250mg/250ml Premix IV SCH (15:45)
--- NOTE | 2018-09-19 15:53 | Hematology/Onc Progress Note ---
Assessment/Plan Assessment/Plan Assessment and Recs: # Acute right leg DVT hx, before was on eliquis, currently is on heparin gtt also with mobile clot --> cards aware from prior admission --> now with Mobile LV Clot On Eliquis, is ok to change to Lovenox/Coumadin --> currently on heparin gtt --> ONCE is on coumadin/lovenox, inr goal is 2-3 # Anemia of chronic disease due to underlying chronic medical issues, multifactorial. --> Anemia w/u has been reviewed. Ferritin at 450. --> hgb goal >7. Transfuse prn. --> No evidence of hemolysis noted --> hgb trend 12-->10.7 # Thrombocytopenia - most likely related to PNA infection. 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 CXR has been reviewed. --> May need abx --> pulm eval prn # Myocardial infarction. --> Cardiac cath [address] Conde # Atrial flutter with rapid ventricular response (reason for this admission). --> per cards, potential ablation --> potential icd placement --> on dobutamine, other pressors as needed, dig # Psych disorder -- as per psych recs The timing of this note does not necessarily reflect the time of the patient was seen. Greatly appreciate consultation! Subjective Constitutional: Denies: no symptoms, chills, fever, malaise, weakness, other Cardiovascular: Denies: no symptoms, chest pain, edema, irregular heart rate, lightheadedness, palpitations, syncope, other Respiratory: Denies: no symptoms, cough, shortness of breath, SOB with excertion, SOB at rest, sputum, wheezing, other Allergies: Coded Allergies: No Known Allergies (Unverified , 01/07/18) Subjective Subjective 09/19: was discharged yesterday, now comes back in for hypotension, on dig, and heparin gtt, cards seen Objective Objective Current Medications Medications (Trade) Dose Ordered Sig/Fritz Route PRN Reason Start Time Stop Time Status Last Admin Dose Admin Acetaminophen (Tylenol) 650 mg Q6H PRN GT Mild Pain/Temp > 100.5 09/19/18 03:45 10/19/18 03:44 Albuterol/ Ipratropium (Albuterol/ Ipratropium) 3 ml Q4H PRN HHN Shortness of Breath 09/19/18 03:30 09/24/18 03:29 Albuterol/ Ipratropium (Albuterol/ Ipratropium) 3 ml Q4HRT HHN 09/19/18 11:00 09/24/18 10:59 09/19/18 14:50 Aspirin (ASA) 81 mg DAILY GT 09/19/18 09:00 10/19/18 08:59 09/19/18 09:27 Chlorhexidine Gluconate (Nadeen-Hex 2%) 1 applic DAILY@2000 TOPIC 09/19/18 20:00 10/19/18 19:59 Dextrose/Sodium Chloride 1,000 ml @ 60 mls/hr [id number] IV 09/19/18 09:45 10/19/18 09:44 09/19/18 09:58 Digoxin (Lanoxin) 0.125 mg DAILY PEG 09/20/18 09:00 10/20/18 08:59 Dobutamine HCl 250 ml @ 17.495 mls/ hr Q24H IV 09/19/18 15:45 10/19/18 15:44 Dopamine HCl/ Dextrose 250 ml @ 10.934 mls/ hr Q24H IV 09/19/18 15:39 10/19/18 15:38 Furosemide (Lasix) 20 mg DAILY GT 09/19/18 09:00 10/19/18 08:59 09/19/18 09:27 Heparin Sodium/ Dextrose 500 ml @ 21.096 mls/ hr ADJUST PER PROTOCOL IV 09/19/18 08:45 10/19/18 04:14 09/19/18 09:26 Norepinephrine Bitartrate 8 mg/ Dextrose 254 ml @ 0 mls/hr Q24H IV 09/19/18 03:30 10/19/18 03:29 09/19/18 04:29 Ondansetron HCl (Zofran) 4 mg Q4H PRN IVP Nausea & Vomiting 09/19/18 04:15 10/19/18 04:14 Pantoprazole (Protonix) 40 mg DAILY IVP 09/19/18 09:00 10/19/18 08:59 09/19/18 09:27 Piperacillin Sod/ Tazobactam Sod 4.5 gm/Sodium Chloride 110 ml @ 27.5 mls/hr Q8HR IVPB 09/19/18 06:00 09/26/18 05:59 09/19/18 15:10 Vancomycin HCl (Vanco rx to dose) 1 ea DAILY PRN MISC Per rx protocol 09/19/18 03:30 10/19/18 03:29 Vancomycin HCl/ Dextrose 275 ml @ 183.333 mls/hr Q24H IVPB 09/19/18 05:00 09/24/18 04:59 09/19/18 04:37 Last 24 Hour Vital Signs Date Time Temp Pulse Resp B/P (MAP) Pulse Ox O2 Delivery O2 Flow Rate FiO2 09/19/18 15:00 82 19 100 Nasal Cannula 2.0 28 09/19/18 14:50 85 12 99 Nasal Cannula 2.0 28 09/19/18 11:23 71 13 100 Nasal Cannula 2.0 28 09/19/18 11:11 90 18 99 Venturi Mask 4.0 30 09/19/18 10:30 78 19 100/73 (82) 97 09/19/18 10:00 80 22 104/78 (87) 98 09/19/18 09:30 67 13 97/75 (82) 99 09/19/18 09:17 66 18 100 4.0 30 09/19/18 09:03 73 16 100 Facial 40 09/19/18 08:30 78 23 99/70 (80) 09/19/18 08:23 78 16 100 Bi-Pap 40 09/19/18 08:23 78 16 100 Facial 40 09/19/18 08:00 72 20 97/75 (82) 100 09/19/18 08:00 Venturi Mask 12.0 09/19/18 07:30 97.6 81 12 99/77 (84) 100 09/19/18 07:17 100 Venturi Mask 12.0 50 09/19/18 07:00 71 14 102/70 (81) 100 09/19/18 06:30 72 14 94/70 (78) 100 09/19/18 06:00 108/88 09/19/18 06:00 79 14 108/88 (95) 100 09/19/18 05:30 87 13 103/76 (85) 100 09/19/18 05:00 87 13 93/74 (80) 100 09/19/18 05:00 93/74 09/19/18 04:45 87 14 101/81 (88) 100 09/19/18 04:30 90 13 105/78 (87) 100 09/19/18 04:29 103/78 09/19/18 04:00 Venturi Mask 40.0 09/19/18 04:00 84 17 100 09/19/18 04:00 Venturi Mask 15.0 09/19/18 04:00 83 09/19/18 03:30 88 15 109/76 (87) 100 09/19/18 03:15 98 18 110/77 (88) 100 09/19/18 03:00 98.5 94 103/73 (83) 09/19/18 02:45 98.9 81 21 102/74 97 Venturi Mask 12.0 50 09/19/18 01:53 102/74 09/19/18 01:48 98.9 81 21 100/70 97 Venturi Mask 12.0 50 09/19/18 01:48 100/70 09/19/18 01:43 106/82 09/19/18 01:43 98.9 81 21 106/82 97 Venturi Mask 12.0 50 09/19/18 01:38 98.9 81 21 88/67 94 Venturi Mask 12.0 50 09/19/18 01:38 88/67 09/19/18 01:33 98.9 81 21 83/64 97 Venturi Mask 12.0 50 09/19/18 01:33 86/66 09/19/18 00:09 81 21 Venturi Mask 12.0 50 09/19/18 00:09 98.9 81 21 116/62 94 Venturi Mask 12.0 50 09/18/18 23:49 98.9 98 22 116/62 94 Non-Rebreather 15.0 09/18/18 23:49 82 20 Non-Rebreather 15.0 09/18/18 23:01 98.6 82 20 116/62 (80) 96 Room Air Intake and Output 09/18/18 09/19/18 19:00 07:00 Intake Total 653.15 ml Output Total 200 ml Balance 453.15 ml Intake IV Total 653.15 ml Tube Feeding 0 ml Output Urine Total 200 ml Labs Test 09/18/18 23:12 09/18/18 23:25 09/19/18 03:36 09/19/18 04:00 White Blood Count 7.0 K/UL (4.8-10.8) 7.5 K/UL (4.8-10.8) Red Blood Count 3.09 M/UL (4.70-6.10) 3.15 M/UL (4.70-6.10) Hemoglobin 10.4 G/DL (14.2-18.0) 10.6 G/DL (14.2-18.0) Hematocrit 32.8 % (42.0-52.0) 34.0 % (42.0-52.0) Mean Corpuscular Volume 106 FL (80-99) 108 FL (80-99) Mean Corpuscular Hemoglobin 33.7 PG (27.0-31.0) 33.5 PG (27.0-31.0) Mean Corpuscular Hemoglobin Concent 31.7 G/DL (32.0-36.0) 31.1 G/DL (32.0-36.0) Red Cell Distribution Width 16.0 % (11.6-14.8) 16.1 % (11.6-14.8) Platelet Count 159 K/UL (150-450) 174 K/UL (150-450) Mean Platelet Volume 9.0 FL (6.5-10.1) 8.8 FL (6.5-10.1) Neutrophils (%) (Auto) 63.5 % (45.0-75.0) 69.6 % (45.0-75.0) Lymphocytes (%) (Auto) 28.8 % (20.0-45.0) 21.3 % (20.0-45.0) Monocytes (%) (Auto) 5.8 % (1.0-10.0) 7.3 % (1.0-10.0) Eosinophils (%) (Auto) 0.6 % (0.0-3.0) 0.6 % (0.0-3.0) Basophils (%) (Auto) 1.4 % (0.0-2.0) 1.2 % (0.0-2.0) Sodium Level 142 MMOL/L (136-145) 145 MMOL/L (136-145) Potassium Level 4.4 MMOL/L (3.5-5.1) 4.0 MMOL/L (3.5-5.1) Chloride Level 108 MMOL/L (98-107) 111 MMOL/L (98-107) Carbon Dioxide Level 28 MMOL/L (21-32) 25 MMOL/L (21-32) Anion Gap 6 mmol/L (5-15) 9 mmol/L (5-15) Blood Urea Nitrogen 33 mg/dL (7-18) 33 mg/dL (7-18) Creatinine 1.2 MG/DL (0.55-1.30) 1.1 MG/DL (0.55-1.30) Estimat Glomerular Filtration Rate mL/min (>60) mL/min (>60) Glucose Level 89 MG/DL (74-106) 102 MG/DL (74-106) Lactic Acid Level 1.50 mmol/L (0.4-2.0) Calcium Level 9.0 MG/DL (8.5-10.1) 8.3 MG/DL (8.5-10.1) Total Bilirubin 1.5 MG/DL (0.2-1.0) 1.3 MG/DL (0.2-1.0) Direct Bilirubin 0.7 MG/DL (0.0-0.3) 0.7 MG/DL (0.0-0.3) Aspartate Amino Transf (AST/SGOT) 24 U/L (15-37) 17 U/L (15-37) Alanine Aminotransferase (ALT/SGPT) < 6 U/L (12-78) 6 U/L (12-78) Alkaline Phosphatase 88 U/L (46-116) 69 U/L (46-116) Creatine Kinase MB 0.9 NG/ML (0.0-3.6) Troponin I 0.124 ng/mL (0.000-0.056) Pro-B-Type Natriuretic Peptide > 87055 pg/mL (0-125) Total Protein 7.5 G/DL (6.4-8.2) 6.3 G/DL (6.4-8.2) Albumin 2.6 G/DL (3.4-5.0) 2.2 G/DL (3.4-5.0) Globulin 4.9 g/dL Albumin/Globulin Ratio 0.5 (1.0-2.7) Urine Color Yellow Urine Appearance Clear Urine pH 5 (4.5-8.0) Urine Specific [place] 1.010 (1.005-1.035) Urine Protein Negative (NEGATIVE) Urine Glucose (UA) Negative (NEGATIVE) Urine Ketones Negative (NEGATIVE) Urine Blood Negative (NEGATIVE) Urine Nitrite Negative (NEGATIVE) Urine Bilirubin Negative (NEGATIVE) Urine Urobilinogen 1 MG/DL (0.0-1.0) Urine Leukocyte Esterase 1+ (NEGATIVE) Urine RBC 0-2 /HPF (0 - 0) Urine WBC 0-2 /HPF (0 - 0) Urine Squamous Epithelial Cells None /LPF (NONE/OCC) Urine Bacteria Few /HPF (NONE) Arterial Blood pH 7.338 (7.350-7.450) Arterial Blood Partial Pressure CO2 45.5 mmHg (35.0-45.0) Arterial Blood Partial Pressure O2 175.2 mmHg (75.0-100.0) Arterial Blood HCO3 23.9 mmol/L (22.0-26.0) Arterial Blood Oxygen Saturation 98.8 % (95-100) Arterial Blood Base Excess -2.0 (-2-2) Asad Test Positive Prothrombin Time 12.0 SEC (9.30-11.50) Prothromb Time International Ratio 1.1 (0.9-1.1) Activated Partial Thromboplast Time 38 SEC (23-33) Phosphorus Level 2.9 MG/DL (2.5-4.9) Magnesium Level 1.7 MG/DL (1.8-2.4) Test 09/19/18 09:00 09/19/18 10:15 Arterial Blood pH 7.381 (7.350-7.450) Arterial Blood Partial Pressure CO2 39.7 mmHg (35.0-45.0) Arterial Blood Partial Pressure O2 155.2 mmHg (75.0-100.0) Arterial Blood HCO3 23.0 mmol/L (22.0-26.0) Arterial Blood Oxygen Saturation 98.7 % (95-100) Arterial Blood Base Excess -1.9 (-2-2) Asad Test Positive Activated Partial Thromboplast Time 87 SEC (23-33) Troponin I 0.114 ng/mL (0.000-0.056) Height (Feet): 5 Height (Inches): 8.00 Weight (Pounds): 128 Objective HEENT: + Face Mask LUNGS: Coarse rhonchi b/l CV: Irregular. S1 and S2 with no gallop or murmur. ABD: Soft.PEG in place EXT: No pitting edema. Bruce Loya MD Sep 19, 2018 15:53
--- NOTE | 2018-09-19 16:30 | Consultation ---
DATE OF CONSULTATION: 09/19/2018 NEPHROLOGY CONSULTATION CONSULTING PHYSICIAN: Tiffanie Huber M.D. REFERRING PHYSICIAN: Inocencia Watt M.D. REASON FOR CONSULTATION: Hypomagnesemia and hypotension. HISTORY OF PRESENT ILLNESS: The patient is a 77-year-old male with past medical history significant for history of CAD, hypertension, and recent admission to [facility] for pneumonia. The patient was discharged to a senior care. Upon arrival in the senior care, the patient found to be more altered than his baseline and blood pressure of 70. The patient was transferred back to [facility], was admitted in ICU, started on Levophed, found to have an electrolyte abnormality. I was called for management of renal disease and electrolyte imbalance. This morning, he is awake, refused to talk. He is oriented. His is at the bedside. His blood pressure is more stable on Levophed. He is on D5 and half at 40 mL for blood pressure support. PAST MEDICAL HISTORY: 1. History of AFib. 2. History of DVT. 3. History of pneumonia. 4. History of thrombocytopenia. 5. History of anemia. ALLERGIES: No known drug allergies MEDICATIONS: Medication list was reviewed. FAMILY HISTORY: Noncontributory. SOCIAL HISTORY: He lives at senior care. There is no current history of tobacco, alcohol, or drug use. REVIEW OF SYSTEMS: Limited due to the patient's condition. The patient refused to provide appropriate answers to my questions.GENERAL: There is definitely generalized weakness. PULMONARY: There is some shortness of breath, recent admission for pneumonia. Currently, the patient is on venturi mask and 100% O2 saturation. GASTROINTESTINAL: There is no nausea or vomiting was reported. GENITOURINARY: No dysuria. No frequency. No hematuria. PHYSICAL EXAMINATION: VITAL SIGNS: The patient has temperature of 98 degrees, blood pressure 99/77, and pulse rate 81. Saturation of 100%. HEAD AND NECK: No JVP. No LAD. No thyromegaly. Bitemporal wasting. Mucous membranes are dry. LUNGS: Bilateral rhonchi. CARDIAC: Regular rate and rhythm. S1 and S2. No murmur. No rub. ABDOMEN: Soft, nontender, and nondistended. EXTREMITIES: No edema. No clubbing. No cyanosis. LABORATORY AND DIAGNOSTIC DATA: The patient has WBC count of 7.5, hemoglobin 10.5, hematocrit 34, and platelet count 174,000. Chemistry revealed sodium 145, potassium 4, chloride 111, bicarb 25, BUN 33, and creatinine 1.1. Glucose of 102. Calcium is 8.3. Magnesium is 1.7. Total bilirubin of 1.3, direct 0.7. Total protein of 7.3, albumin of 2.3. UA revealed specific gravity of 1.010, pH 5, leukocyte esterase 1+, rbc's 0 to 2, wbc's, 0 to 2. ASSESSMENT: 1. Prerenal azotemia and dehydration. 2. Hypocalcemia. 3. Hypomagnesemia. 4. Possible failure to thrive, low albumin and low total protein. Pre-albumin level needs to be checked. 5. Possible recurrent pneumonia. PLAN: Plan for the patient is to obtain UA. Check the random urine protein-creatinine ratio to calculate the proteinuria. Check the urine sodium and creatinine to calculate fractional excretion of sodium. I would replace the magnesium, check the vitamin D for evaluation of hypocalcemia and maintenance fluids. Check the prealbumin level for nutritional evaluation. At the end, I would like to thank Dr. Watt for allowing me to participate in the care of this patient. Eren Vo JOB#: [id number] CC:
[2018-09-19] MEDS ORDERED: DOPamine 400mg/250ml 250 ML IV SCH (18:30)
[2018-09-19] MEDS: DOBUTamine 250mg/250ml Premix 250 ML IV SCH (18:41)
--- NOTE | 2018-09-19 19:00 | Consultation ---
DATE OF CONSULTATION: 09/19/2018 CHIEF COMPLAINT: Dysphagia. HISTORY OF PRESENT ILLNESS: This is a very unfortunate 77-year-old male, known to me from recent admission on him in August. The patient was discharged, came back again with altered mental status, treated for possible pneumonia. PAST MEDICAL HISTORY: 1. Hypertension. 2. History of non-ST elevation myocardial infarction. 3. Severe cardiomyopathy with EF of 20%. 4. Atrial flutter. 5. Right leg DVT. 6. Dysphagia with G-tube placement in last admission. ALLERGIES: No known drug allergies. MEDICATIONS: Please see medication reconciliation list. SOCIAL HISTORY: There is no history of tobacco, alcohol, or drug abuse. PAST SURGICAL HISTORY: No surgery documented in the chart. REVIEW OF SYSTEMS: Limited. PHYSICAL EXAMINATION: GENERAL: He is a well-developed male, in ICU, mild respiratory distress. VITAL SIGNS: Temperature 97.6, pulse 66, respirations 18, blood pressure is 99/77. HEENT: Normocephalic and atraumatic. Mild pale conjunctivae. NECK: Supple. No evidence of obvious lymphadenopathy. CARDIOVASCULAR: Tachy. Regular rate. Plus S1 and S2. LUNGS: Decreased breath sounds bilaterally, diffusely right more than left ABDOMEN: Soft, nontender. G-tube in place. No rebound. No guarding. No peritoneal sign. EXTREMITIES: No cyanosis. No clubbing. No edema. LABORATORY AND DIAGNOSTIC DATA: White count 7.5, hemoglobin 10, hematocrit 34, platelet count is 174,000. Chem-7, sodium 145, potassium 4.0, BUN 33, creatinine 1.1. ASSESSMENT AND PLAN: The patient is a 77-year-old male with recent discharge, came back again with altered mental status, hypotension, possible recurrent pneumonia. From GI standpoint, the patient's hemoglobin and hematocrit has been stable. G-tube looks good. We are going resume his tube feedings slowly to advance to goal rate. I spoke with the nurse at the bedside. We are going to start low at 10 mL and go up to 50 mL as tolerated . Labs to be monitored. Antibiotics per ID. Respiratory care per pulmonary. Follow Cardiology recommendation given extensive cardiac issues. [place] Eren Boo DR: Palmira JOB#: [id number] CC:
[2018-09-19] MEDS ORDERED: SPIRONOLACTONE25 MG ORAL (19:11)
[2018-09-19] MEDS: Dyna-Hex 2% Top Sol 2oz TOPIC SCH (19:55)
[2018-09-19] MEDS ORDERED: D5NS 1000ml IV ONE (20:04)
[2018-09-19] MEDS ORDERED: NS 275ml ONE (20:04)
[2018-09-19] MEDS ORDERED: Sterile Water Irrig 1000ml IRRIG ONE (20:04)
[2018-09-19] MEDS ORDERED: D5 1/2NS 1000ml IV ONE (20:04)
[2018-09-19] MEDS ORDERED: Tubing IV Secondary IV ONE (20:04)
--- NOTE | 2018-09-19 22:45 | History and Physical Report ---
DATE OF ADMISSION: 09/19/2018 HISTORY OF PRESENT ILLNESS: The patient was recently discharged, came back from the longterm because of hypotension, altered mental status. The patient admitted to ICU, on pressors. The patient also has atrial fibrillation, hypotension, was very lethargic. Unable to obtain any history from the patient at this point. Again, unable to obtain history. The patient is lethargic. PAST MEDICAL HISTORY: Organic brain syndrome, atrial fibrillation, hypertension, GERD, CHF, psychosis, atrial fibrillation. PAST SURGICAL HISTORY: PEG. ALLERGIES: No known allergies. MEDICATIONS: Coreg, Coumadin, famotidine, Lasix, losartan, olanzapine, spironolactone. FAMILY HISTORY: Unable to obtain. SOCIAL HISTORY: Unable to obtain. REVIEW OF SYSTEMS: Unable to obtain, very lethargic. PHYSICAL EXAMINATION: VITAL SIGNS: Temperature 98.3, pulse is 112, blood pressure 85/71. HEENT: PERRLA. NECK: Supple. No lymphadenopathy. CHEST: Clear to auscultation. CARDIOVASCULAR: Irregularly irregular. GASTROINTESTINAL: Soft. Positive bowel sounds. No organomegaly. EXTREMITIES: No edema. NEUROLOGIC: More lethargic than baseline. Does not follow neurological exam. LABORATORY DATA: WBC of 7, hemoglobin of 10.4, platelets of 159. Sodium 145, potassium of 4, BUN of 33, creatinine 1.1. Troponin of 0.114. ASSESSMENT AND PLAN: Hypotension, atrial fibrillation. The patient is on pressors. More lethargic than baseline. CHF. The patient admitted to ICU. I have asked Dr. Conde, Dr. Huber, Dr. Diana, Dr. Bernal, Dr. Boo, and Dr. Bruce Loya see the patient for the above-mentioned diagnoses and treatment. Inocencia Watt M.D. DR: JACOBO JOB#: [id number] CC:
[2018-09-20] VITALS (53 sets, daily range): BP systolic 76–111; BP diastolic 60–82
[2018-09-20] MEDS: D5NS 1,000 ML IV SCH ×2 (02:45→19:18)
[2018-09-20] MEDS: Albuterol/Ipratropium 3ml neb HHN SCH ×5 (03:39→19:28)
--- NOTE | 2018-09-20 03:45 | Consultation ---
DATE OF CONSULTATION: 09/19/2018 NOTE: VERY POOR AUDIO NEUROLOGICAL CONSULTATION CONSULTING PHYSICIAN: Gibson Bernal M.D. CHIEF COMPLAINT: with a history of hypertension in the past, anemia of chronic disease, borderline diabetes. admitted and recently discharged . He was admitted because he had altered mental status and hypertension. In December 2017, the patient was admitted here with AFib/flutter with a heart rate of 140. He was worked up. He was sent to [facility] for an angioplasty. The patient was admitted on 09/04/2018 for atrial fibrillation. He was found to have a normal liver function test. The patient was found to have . The patient was discharged to [facility] where he developed hypertension and altered mental status and was brought back to this hospital. The patient . His blood pressure was in in the long-term and was confused. hemoglobin of 10.4 and today . His platelet counts were normal. His white count . PT was and PTT was 38. Urinalysis basically wbc's per high-power field. . Arterial blood gases revealed a pH of 7.238, pCO2 of 35.5, . Total bilirubin is 1.3, direct . Total protein 6.2. Albumin is 2.2. . Creatinine is 1.1. He is on multiple medications including Eliquis , and spironolactone. According to the patient's , he has no history of migraine headaches. Apparently pneumonia, probable sepsis and hypertension . He had a previous NSTEMI and a currently elevated troponin, aortic stenosis, and mitral regurgitation . Chest x-ray revealed no acute intracranial findings, chronic appearing changes of encephalomalacia. PAST MEDICAL HISTORY: As outlined in history above. ALLERGIES: The patient will get apparent skin rash when he is exposed to metals. SOCIAL HISTORY: He is . He has 3 children. . PHYSICAL EXAMINATION: GENERAL: He is a well developed, well nourished male, lying in bed. He is stuporous. Occasionally moaning. Unintelligible speech. VITAL SIGNS: Blood pressure is 97/75, pulse is 67 to 73 regular. . ABDOMEN: . CRANIAL NERVE EXAMINATION: CRANIAL NERVE II: Visual saenz . CRANIAL NERVES III, IV, AND : . Pupils were about 5 mm, round, reactive to light. CRANIAL NERVE V: . CRANIAL NERVES IX AND X: . MUSCLE EXAMINATION: . IMPRESSION: . The patient is placed on antibiotics namely vancomycin, piperacillin. Apparently, the patient had positive blood cultures discharge. Therefore, this is the cause of his altered mental status. PLAN: 1. EEG. 2. Treat his pneumonia. 3. . Gibson Bernal MD DR: NATHAN JOB#: [id number] CC:
[2018-09-20 04:19] LABS: BASOPHILS % (AUTO) 1.1 % (0.0-2.0); EOSINOPHILS % (AUTO) 1.5 % (0.0-3.0); HEMATOCRIT 32.8 % (42.0-52.0); HEMOGLOBIN 10.2 G/DL (14.2-18.0); LYMPHOCYTES % (AUTO) 14.4 % (20.0-45.0); MEAN CORPUSCULAR VOLUME 107 FL (80-99); PLATELET COUNT 143 K/UL (150-450); RED BLOOD COUNT 3.06 M/UL (4.70-6.10); RED CELL DISTRIBUTION WIDTH 15.3 % (11.6-14.8); WHITE BLOOD COUNT 7.4 K/UL (4.8-10.8)
[2018-09-20 04:54] LABS: ALANINE AMINOTRANSFERASE < 6 U/L (12-78); ALBUMIN/GLOBULIN RATIO 0.5 (1.0-2.7); ALKALINE PHOSPHATASE 57 U/L (46-116); ANION GAP 8 mmol/L (5-15); ASPARTATE AMINO TRANSFERASE 16 U/L (15-37); BILIRUBIN,DIRECT 0.6 MG/DL (0.0-0.3); BILIRUBIN,TOTAL 1.3 MG/DL (0.2-1.0); BLOOD UREA NITROGEN 25 mg/dL (7-18); CALCIUM 7.9 MG/DL (8.5-10.1); CARBON DIOXIDE 26 MMOL/L (21-32); CHLORIDE 107 MMOL/L (98-107); CREATININE 1.1 MG/DL (0.55-1.30); PHOSPHORUS 2.9 MG/DL (2.5-4.9); POTASSIUM 3.5 MMOL/L (3.5-5.1); SODIUM 140 MMOL/L (136-145)
[2018-09-20] MEDS: Vancomycin 1.25gm Premix IVPB SCH (05:20)
[2018-09-20] MEDS: Piperacillin/Tazobactam 4.5 GM in NS 110 ML IVPB SCH ×3 (05:32→22:10)
[2018-09-20] MEDS: Heparin 25,000u/D5W 500ml (VTE/AF) IV SCH (06:00)
--- NOTE | 2018-09-20 08:52 | General Progress Note ---
Assessment/Plan Assessment/Plan: 1. Hypertension. 2. History of non-ST elevation myocardial infarction. 3. Severe cardiomyopathy with EF of 20%. 4. Atrial flutter. 5. Right leg DVT. 6. Dysphagia with G-tube placement in last admission. GTF on pressors abx per ID on heparin drip for A. flutter fu labs Subjective ROS Limited/Unobtainable: No Allergies: Coded Allergies: No Known Allergies (Unverified , 01/07/18) Objective Last 24 Hour Vital Signs Date Time Temp Pulse Resp B/P (MAP) Pulse Ox O2 Delivery O2 Flow Rate FiO2 09/20/18 08:15 110 40 95/73 (80) 100 09/20/18 08:00 97.5 106 43 95/73 (80) 100 09/20/18 07:45 106 25 87/70 (76) 100 09/20/18 07:45 87/70 09/20/18 07:30 110 42 87/70 (76) 99 09/20/18 07:00 104 28 88/68 (75) 100 09/20/18 06:46 100 Nasal Cannula 2.0 28 09/20/18 06:45 117 Nasal Cannula 2.0 28 09/20/18 06:45 Nasal Cannula 2.0 28 09/20/18 06:30 112 40 86/68 (74) 100 09/20/18 06:00 111 43 90/73 (79) 100 09/20/18 05:30 113 41 82/66 (71) 100 09/20/18 05:00 115 42 83/67 (72) 100 09/20/18 04:32 114 34 90/69 (76) 09/20/18 04:30 114 29 91/72 (78) 09/20/18 04:00 98.9 113 26 89/67 (74) 100 09/20/18 04:00 Venturi Mask 12.0 09/20/18 04:00 112 09/20/18 03:46 116 18 100 Nasal Cannula 2.0 28 09/20/18 03:38 110 18 100 Nasal Cannula 2.0 28 09/20/18 03:30 111 11 99/75 (83) 99 09/20/18 03:00 115 22 91/78 (82) 98 09/20/18 02:30 123 17 95/73 (80) 100 09/20/18 02:00 114 23 94/77 (83) 100 09/20/18 01:30 118 25 90/73 (79) 100 09/20/18 01:00 118 26 95/68 (77) 100 09/20/18 00:30 121 29 90/73 (79) 100 09/20/18 00:00 Venturi Mask 12.0 09/20/18 00:00 98.6 114 23 92/75 (81) 100 09/20/18 00:00 114 09/19/18 23:30 114 19 91/72 (78) 100 09/19/18 23:12 124 18 100 Nasal Cannula 2.0 28 09/19/18 23:01 112 20 99 Nasal Cannula 2.0 28 09/19/18 23:00 113 25 90/74 (79) 100 09/19/18 22:30 113 19 91/74 (80) 100 09/19/18 22:25 93/74 09/19/18 22:00 113 26 93/72 (79) 100 09/19/18 21:30 113 22 92/75 (81) 100 09/19/18 21:15 113 42 93/75 (81) 100 09/19/18 21:00 112 40 91/70 (77) 100 09/19/18 20:45 113 34 86/66 (73) 100 09/19/18 20:30 113 27 88/67 (74) 99 09/19/18 20:15 112 28 86/70 (75) 100 09/19/18 20:00 98.3 112 25 85/71 (76) 100 09/19/18 20:00 Venturi Mask 12.0 09/19/18 20:00 112 09/19/18 19:49 100 Nasal Cannula 2.0 28 09/19/18 19:45 112 36 88/69 (75) 100 09/19/18 19:42 112 18 100 Nasal Cannula 2.0 28 09/19/18 19:32 113 23 99 Nasal Cannula 2.0 28 09/19/18 19:30 112 32 88/71 (77) 100 09/19/18 19:00 117 32 100/79 (86) 98 09/19/18 19:00 85/71 09/19/18 19:00 85/71 09/19/18 18:42 87/71 09/19/18 18:41 87/71 09/19/18 18:30 113 25 91/73 (79) 99 09/19/18 18:30 112 28 87/71 (76) 99 09/19/18 18:00 112 25 81/65 (70) 99 09/19/18 18:00 90/73 09/19/18 18:00 90/73 09/19/18 18:00 112 25 90/65 (73) 100 09/19/18 17:30 130 25 90/73 (79) 95 09/19/18 17:30 90/73 09/19/18 17:00 139 27 94/74 (81) 98 09/19/18 17:00 90/73 09/19/18 17:00 95/71 09/19/18 16:45 139 28 95/71 (79) 98 09/19/18 16:45 94/74 09/19/18 16:30 118 30 95/74 (81) 99 09/19/18 16:30 95/71 09/19/18 16:15 93 27 107/90 (96) 100 09/19/18 16:15 95/74 09/19/18 16:07 87/70 09/19/18 16:07 87/70 09/19/18 16:00 100 09/19/18 16:00 97.6 99 31 87/70 (76) 100 09/19/18 16:00 99 31 87/70 (76) 100 09/19/18 16:00 107/90 09/19/18 16:00 Venturi Mask 12.0 09/19/18 15:30 98 33 92/77 (82) 99 09/19/18 15:00 84 21 101/73 (82) 100 09/19/18 15:00 82 19 100 Nasal Cannula 2.0 28 09/19/18 15:00 96/79 09/19/18 14:50 85 12 99 Nasal Cannula 2.0 28 09/19/18 14:30 82 34 89/68 (75) 98 09/19/18 14:00 91 23 93/74 (80) 96 09/19/18 14:00 93/74 09/19/18 13:30 91 22 98/75 (83) 96 09/19/18 13:15 86 23 95/76 (82) 93 8/2/19 13:00 83 23 92/73 (79) 95 09/19/18 13:00 92/73 09/19/18 12:30 97.6 80 21 88/62 (71) 98 09/19/18 12:00 Venturi Mask 12.0 09/19/18 12:00 89/63 09/19/18 12:00 75 19 89/63 (72) 98 09/19/18 11:30 77 17 89/68 (75) 100 09/19/18 11:23 71 13 100 Nasal Cannula 2.0 28 09/19/18 11:11 90 18 99 Venturi Mask 4.0 30 09/19/18 11:00 76 17 99/87 (91) 100 09/19/18 11:00 99/87 09/19/18 10:30 78 19 100/73 (82) 97 09/19/18 10:00 96/65 09/19/18 10:00 80 22 104/78 (87) 98 09/19/18 09:30 67 13 97/75 (82) 99 09/19/18 09:17 66 18 100 4.0 30 09/19/18 09:03 73 16 100 Facial 40 09/19/18 09:00 92/75 Intake and Output 09/19/18 09/20/18 18:59 06:59 Intake Total 1657.101 ml 2368.2547 ml Output Total 545 ml 680 ml Balance 1112.101 ml 1688.2547 ml Intake Free Water 150 ml IV Total 1377.101 ml 1588.2547 ml Tube Feeding 280 ml 630 ml Output Urine Total 545 ml 680 ml Laboratory Tests 09/19/18 09:00: Arterial Blood pH 7.381, Arterial Blood Partial Pressure CO2 39.7, Arterial Blood Partial Pressure O2 155.2H, Arterial Blood HCO3 23.0, Arterial Blood Oxygen Saturation 98.7, Arterial Blood Base Excess -1.9, Asad Test Positive 09/19/18 10:15: Activated Partial Thromboplast Time 87H, Troponin I 0.114H, Prealbumin 6L, Vitamin D 25-Hydroxy [Pending], 25-Hydroxy Vitamin D2 [Pending], 25-Hydroxy Vitamin D3 [Pending], Digoxin Level 0.5 09/19/18 13:30: Urine Eosinophils None seen, Urine Random Creatinine [Pending], Urine Random Microalbumin [Pending], Urine Random Total Protein 34H, Urine Random Sodium 51, Urine Creatinine 69.1, Urine Microalbumin/Creatinine Ratio [Pending] 09/20/18 04:00: Activated Partial Thromboplast Time 87H, White Blood Count 7.4, Red Blood Count 3.06L, Hemoglobin 10.2L, Hematocrit 32.8L, Mean Corpuscular Volume 107H, Mean Corpuscular Hemoglobin 33.4H, Mean Corpuscular Hemoglobin Concent 31.2L, Red Cell Distribution Width 15.3H, Platelet Count 143L, Mean Platelet Volume 9.4, Neutrophils (%) (Auto) 76.0H, Lymphocytes (%) (Auto) 14.4L, Monocytes (%) (Auto ) 7.0, Eosinophils (%) (Auto) 1.5, Basophils (%) (Auto) 1.1, Sodium Level 140, Potassium Level 3.5, Chloride Level 107, Carbon Dioxide Level 26, Anion Gap 8, Blood Urea Nitrogen 25H, Creatinine 1.1, Estimat Glomerular Filtration Rate , Glucose Level 197H, Calcium Level 7.9L, Phosphorus Level 2.9, Magnesium Level 1.7L, Total Bilirubin 1.3H, Direct Bilirubin 0.6H, Aspartate Amino Transf (AST/ SGOT) 16, Alanine Aminotransferase (ALT/SGPT) < 6L, Alkaline Phosphatase 57, Total Protein 5.8L, Albumin 2.0L, Globulin 3.8, Albumin/Globulin Ratio 0.5L Height (Feet): 5 Height (Inches): 8.00 Weight (Pounds): 129 General Appearance: lethargic EENT: normal ENT inspection Neck: supple Cardiovascular: normal rate Respiratory/Chest: decreased breath sounds Abdomen: normal bowel sounds, non tender, soft Extremities: non-tender Phoenix Boo MD Sep 20, 2018 08:52
[2018-09-20] MEDS: Digoxin 0.125mg tab PEG SCH (09:02)
[2018-09-20] MEDS: Pantoprazole Inj IVP SCH (09:02)
[2018-09-20] MEDS: Aspirin Baby 81mg GT SCH (09:02)
[2018-09-20] MEDS: DOBUTamine 250mg/250ml Premix 250 ML IV SCH ×2 (09:28→15:40)
--- NOTE | 2018-09-20 15:14 | Pulmonolgy Critical Care Note ---
Critical Care - Asmt/Plan Assessment/Plan: Pulmonary CCM Progress Note HPI Patient is a 77-year-old male recently discharged from the hospital, s/p G-tube for Failure to thrive, has a history of atrial fibrillation/DVT on Eliquis, CHF with EF 20%, CAD with previous NSTEMI, Aortic stenosis, Mitral Regurgitation, Chronic anemia, thromocytopenia, previous admissions for pneumonia, presents from nursing facility for altered mental status and hypotension, decubitus ulcers, recent positive blood culture with staph simulans. At the long-term was noted to have blood pressure in the mid 70s, was confused, oriented to self only. There is no report of trauma. The patient has no complaints at this time but is oriented to self only cannot provide any significant history. Remains on pressors, on heparin gtt PMH: Failure to thrive, has a history of atrial fibrillation/DVT on Eliquis, CHF with EF 20%, CAD with previous NSTEMI, Aortic stenosis, Mitral Regurgitation , Hypertension, Chronic anemia, thromocytopenia, previous admissions for pneumonia, thrombocytopenia presents from nursing facility for altered mental status and hypotension, decubitus ulcers, recent positive blood culture with staph simulans Allergies: No documented allergies Allergies: No Known Allergies All Other Systems: limited - Due to altered mental status on presentation Physical Exam Vital Signs Noted Date Time Temp Pulse Resp B/P (MAP) Pulse Ox O2 Delivery O2 Flow Rate FiO2 09/18/18 23:01 98.6 82 20 116/62 (80) 96 Room Air On Levophed General: Chronically ill, wasted, no acute distress,RIJ line HEENT: NC/AT. EOMI. PERRLA, pupils equal and reactive bilaterally. No obvious facial trauma. Dry mucous membranes Neck: Supple, trachea midline Chest Wall: No tenderness, no deformity Cardiovascular: Irregularly irregular rhythm, regular rate, HS1, HS2, ESM Resp: Normal work of breathing. CTAB Abdomen: Abdomen is soft, nondistended. Nontender Skin: Multiple ulcers over the back and buttock n MSK: Appears frail and somewhat cachectic. Moving all extremities though diminished strength in all limbs Neuro: Awake, confused, oriented to self only. No focal signs, no seizures EKG: Rate: normal Rhythm: other - Atrial fibrillation ST Segments: no acute changes CXR: Interim placement right jugular central venous catheter, tip of which projects at the level of the high right atrium. Again demonstrated is bilateral interstitial and airspace edema, bilateral pleural effusions, and cardiomegaly. There is no evidence of pneumothorax. CT Head: No acute intracranial findings. Atrophy. Chronic-appearing ischemic changes and encephalomalacia. Labs: Noted Assessment Severe Congestive Heart Failure Bilateral pleural effusions Hypotension Probable Sepsis Possible pneumonia Decubitus ulcers AMS Failure to thrive, has a history of atrial fibrillation/DVT on Eliquis Non Ischemic [employer], CHF with EF 20% CAD with previous NSTEMI - currently elevated Troponin Aortic stenosis, Mitral Regurgitation H/o hypertension Chronic anemia, thromocytopenia Previous admissions for pneumonia Plan IV Antibiotics Levophed Aspiration Precautions Heparin gtt - hold NOACS for now Consider thoracentesis once more stable ASA ABG BiPAP PRN Duonebs PRN/CPT Lasix PRN IV 25% Albumin Cautious IVF Monitor Glucose Hold Feeds for Now Monitor labs PPX Critical Care - Objective Last 24 Hour Vital Signs Date Time Temp Pulse Resp B/P (MAP) Pulse Ox O2 Delivery O2 Flow Rate FiO2 09/20/18 14:00 112 20 90/73 (79) 100 09/20/18 14:00 90/73 09/20/18 13:52 90/73 09/20/18 13:30 107 20 90/73 (79) 100 09/20/18 13:00 87/71 09/20/18 13:00 87/71 09/20/18 13:00 110 21 87/71 (76) 100 09/20/18 12:30 111 28 94/71 (79) 97 09/20/18 12:00 98.5 111 41 111/82 (92) 100 09/20/18 12:00 97/74 09/20/18 12:00 111/82 09/20/18 12:00 108 09/20/18 12:00 Nasal Cannula 2.0 09/20/18 11:30 112 30 94/75 (81) 100 09/20/18 11:00 107 21 94/71 (79) 100 09/20/18 11:00 94/74 09/20/18 11:00 94/71 09/20/18 10:55 105 18 100 Nasal Cannula 2.0 28 09/20/18 10:46 113 18 100 Nasal Cannula 2.0 28 09/20/18 10:30 112 20 87/72 (77) 99 09/20/18 10:00 91/75 09/20/18 10:00 91/75 09/20/18 10:00 112 32 91/75 (80) 100 09/20/18 09:30 113 43 94/75 (81) 100 09/20/18 09:28 96/75 09/20/18 09:02 111 09/20/18 09:00 112 46 96/75 (82) 100 09/20/18 09:00 96/75 09/20/18 09:00 96/75 09/20/18 08:45 113 30 100/74 (83) 100 09/20/18 08:30 111 36 100/74 (83) 100 09/20/18 08:15 110 40 95/73 (80) 100 09/20/18 08:00 95/73 09/20/18 08:00 95/73 09/20/18 08:00 Nasal Cannula 2.0 09/20/18 08:00 111 09/20/18 08:00 97.5 106 43 95/73 (80) 100 09/20/18 07:45 106 25 87/70 (76) 100 09/20/18 07:45 87/70 09/20/18 07:30 110 42 87/70 (76) 99 09/20/18 07:00 104 28 88/68 (75) 100 09/20/18 06:46 100 Nasal Cannula 2.0 28 09/20/18 06:45 117 Nasal Cannula 2.0 09/20/18 06:45 Nasal Cannula 2.0 28 09/20/18 06:30 112 40 86/68 (74) 100 09/20/18 06:00 111 43 90/73 (79) 100 09/20/18 05:30 113 41 82/66 (71) 100 09/20/18 05:00 115 42 83/67 (72) 100 09/20/18 04:32 114 34 90/69 (76) 09/20/18 04:30 114 29 91/72 (78) 09/20/18 04:00 98.9 113 26 89/67 (74) 100 09/20/18 04:00 Venturi Mask 12.0 09/20/18 04:00 112 09/20/18 03:46 116 18 100 Nasal Cannula 2.0 28 09/20/18 03:38 110 18 100 Nasal Cannula 2.0 28 09/20/18 03:30 111 11 99/75 (83) 99 09/20/18 03:00 115 22 91/78 (82) 98 09/20/18 02:30 123 17 95/73 (80) 100 09/20/18 02:00 114 23 94/77 (83) 100 09/20/18 01:30 118 25 90/73 (79) 100 09/20/18 01:00 118 26 95/68 (77) 100 09/20/18 00:30 121 29 90/73 (79) 100 09/20/18 00:00 Venturi Mask 12.0 09/20/18 00:00 98.6 114 23 92/75 (81) 100 09/20/18 00:00 114 09/19/18 23:30 114 19 91/72 (78) 100 09/19/18 23:12 124 18 100 Nasal Cannula 2.0 09/19/18 23:01 112 20 99 Nasal Cannula 2.0 28 09/19/18 23:00 113 25 90/74 (79) 100 09/19/18 22:30 113 19 91/74 (80) 100 09/19/18 22:25 93/74 09/19/18 22:00 113 26 93/72 (79) 100 09/19/18 21:30 113 22 92/75 (81) 100 09/19/18 21:15 113 42 93/75 (81) 100 09/19/18 21:00 112 40 91/70 (77) 100 09/19/18 20:45 113 34 86/66 (73) 100 09/19/18 20:30 113 27 88/67 (74) 99 09/19/18 20:15 112 28 86/70 (75) 100 09/19/18 20:00 98.3 112 25 85/71 (76) 100 09/19/18 20:00 Venturi Mask 12.0 09/19/18 20:00 112 09/19/18 19:49 100 Nasal Cannula 2.0 28 09/19/18 19:45 112 36 88/69 (75) 100 09/19/18 19:42 112 18 100 Nasal Cannula 2.0 28 09/19/18 19:32 113 23 99 Nasal Cannula 2.0 28 09/19/18 19:30 112 32 88/71 (77) 100 09/19/18 19:00 117 32 100/79 (86) 98 09/19/18 19:00 85/71 09/19/18 19:00 85/71 09/19/18 18:42 87/71 09/19/18 18:41 87/71 09/19/18 18:30 113 25 91/73 (79) 99 09/19/18 18:30 112 28 87/71 (76) 99 09/19/18 18:00 112 25 81/65 (70) 99 09/19/18 18:00 90/73 09/19/18 18:00 90/73 09/19/18 18:00 112 25 90/65 (73) 100 09/19/18 17:30 130 25 90/73 (79) 95 09/19/18 17:30 90/73 09/19/18 17:00 139 27 94/74 (81) 98 09/19/18 17:00 90/73 09/19/18 17:00 95/71 09/19/18 16:45 139 28 95/71 (79) 98 09/19/18 16:45 94/74 09/19/18 16:30 118 30 95/74 (81) 99 09/19/18 16:30 95/71 09/19/18 16:15 93 27 107/90 (96) 100 09/19/18 16:15 95/74 09/19/18 16:07 87/70 09/19/18 16:07 87/70 09/19/18 16:00 100 09/19/18 16:00 97.6 99 31 87/70 (76) 100 09/19/18 16:00 99 31 87/70 (76) 100 09/19/18 16:00 107/90 09/19/18 16:00 Venturi Mask 12.0 09/19/18 15:30 98 33 92/77 (82) 99 Micro: Microbiology Date/Time Source Procedure Growth Status 09/18/18 23:27 Blood Blood Culture - Preliminary Gram Positive Cocci Resulted 09/18/18 23:12 Blood Blood Culture - Preliminary NO GROWTH AFTER 24 HOURS Resulted Accucheck: 204 Critical Care - Subjective ROS Limited/Unobtainable: No Condition: stable FI02: 28 Sputum Amount: None Tube Feeding Amount: 55 I&O: Intake and Output 09/19/18 09/20/18 19:00 07:00 Intake Total 1722.7927 ml 2404.116 ml Output Total 570 ml 680 ml Balance 1152.7927 ml 1724.116 ml Intake Free Water 150 ml IV Total 1402.7927 ml 1609.116 ml Tube Feeding 320 ml 645 ml Output Urine Total 570 ml 680 ml Robbin Diana MD Sep 20, 2018 15:14
[2018-09-20] MEDS ORDERED: Digoxin 0.5mg/2ml Inj IVP SCH (15:30)
--- NOTE | 2018-09-20 15:31 | Cardiac Electrophysiology PN ---
Assessment/Plan Assessment/Plan 1. Atrial flutter with rapid ventricular response 140s. HR 100s. Loaded with Digoxin. Dig level 0.5. Off Coreg for low BP. Had atrial flutter in December 2017 and previous admission also. Consider atrial flutter ablation as out patient. Dig level 0.5. On Dig o.125 daily 2. 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 Cardiac catheterization by me in December 2017 no CAD. DCed all CHF meds( Cozaar 25 mg daily, Aldactone 12.5 mg daily, and Coreg 3.125 mg b.i.d) Decrease Dopamine to 3 Mcg and Dobutamine to 3 mc/min. On Levophed 3. 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 History of DVT 5. History of hypertension. 6. Severe MAIK 0.3 7. Dysphagia, S/P PEG 8. 15 beats of nonsustained VT. Due to severe non ischemic CMP. Consider ICD specially for EF 15% as out patient DW RN Subjective Subjective In ICU on Levophed 10 mc, Dopamine and Dobutamine 4 mcg and heparin drip. Still in atrial flutter. On Lasix 20 po RN at bedside Objective Last 24 Hour Vital Signs Date Time Temp Pulse Resp B/P (MAP) Pulse Ox O2 Delivery O2 Flow Rate FiO2 09/20/18 15:20 118 Nasal Cannula 2.0 28 09/20/18 15:20 Nasal Cannula 2.0 28 09/20/18 15:00 112 19 92/75 (81) 99 09/20/18 15:00 92/75 09/20/18 15:00 92/75 09/20/18 14:30 109 23 89/74 (79) 100 09/20/18 14:00 112 20 90/73 (79) 100 09/20/18 14:00 92/75 09/20/18 14:00 90/73 09/20/18 13:52 90/73 09/20/18 13:30 107 20 90/73 (79) 100 09/20/18 13:00 87/71 09/20/18 13:00 87/71 09/20/18 13:00 110 21 87/71 (76) 100 09/20/18 12:30 111 28 94/71 (79) 97 09/20/18 12:00 98.5 111 41 111/82 (92) 100 09/20/18 12:00 97/74 09/20/18 12:00 111/82 09/20/18 12:00 108 09/20/18 12:00 Nasal Cannula 2.0 09/20/18 11:30 112 30 94/75 (81) 100 09/20/18 11:00 107 21 94/71 (79) 100 09/20/18 11:00 94/74 09/20/18 11:00 94/71 09/20/18 10:55 105 18 100 Nasal Cannula 2.0 09/20/18 10:46 113 18 100 Nasal Cannula 2.0 09/20/18 10:30 112 20 87/72 (77) 99 09/20/18 10:00 91/75 09/20/18 10:00 91/75 09/20/18 10:00 112 32 91/75 (80) 100 09/20/18 09:30 113 43 94/75 (81) 100 09/20/18 09:28 96/75 09/20/18 09:02 111 09/20/18 09:00 112 46 96/75 (82) 100 09/20/18 09:00 96/75 09/20/18 09:00 96/75 09/20/18 08:45 113 30 100/74 (83) 100 09/20/18 08:30 111 36 100/74 (83) 100 09/20/18 08:15 110 40 95/73 (80) 100 09/20/18 08:00 95/73 09/20/18 08:00 95/73 09/20/18 08:00 Nasal Cannula 2.0 09/20/18 08:00 111 09/20/18 08:00 97.5 106 43 95/73 (80) 100 09/20/18 07:45 106 25 87/70 (76) 100 09/20/18 07:45 87/70 09/20/18 07:30 110 42 87/70 (76) 99 09/20/18 07:00 104 28 88/68 (75) 100 09/20/18 06:46 100 Nasal Cannula 2.0 09/20/18 06:45 117 Nasal Cannula 2.0 09/20/18 06:45 Nasal Cannula 2.0 09/20/18 06:30 112 40 86/68 (74) 100 09/20/18 06:00 111 43 90/73 (79) 100 09/20/18 05:30 113 41 82/66 (71) 100 09/20/18 05:00 115 42 83/67 (72) 100 09/20/18 04:32 114 34 90/69 (76) 09/20/18 04:30 114 29 91/72 (78) 09/20/18 04:00 98.9 113 26 89/67 (74) 100 09/20/18 04:00 Venturi Mask 12.0 09/20/18 04:00 112 09/20/18 03:46 116 18 100 Nasal Cannula 2.0 28 09/20/18 03:38 110 18 100 Nasal Cannula 2.0 28 09/20/18 03:30 111 11 99/75 (83) 99 09/20/18 03:00 115 22 91/78 (82) 98 09/20/18 02:30 123 17 95/73 (80) 100 09/20/18 02:00 114 23 94/77 (83) 100 09/20/18 01:30 118 25 90/73 (79) 100 09/20/18 01:00 118 26 95/68 (77) 100 09/20/18 00:30 121 29 90/73 (79) 100 09/20/18 00:00 Venturi Mask 12.0 09/20/18 00:00 98.6 114 23 92/75 (81) 100 09/20/18 00:00 114 09/19/18 23:30 114 19 91/72 (78) 100 09/19/18 23:12 124 18 100 Nasal Cannula 2.0 28 09/19/18 23:01 112 20 99 Nasal Cannula 2.0 28 09/19/18 23:00 113 25 90/74 (79) 100 09/19/18 22:30 113 19 91/74 (80) 100 09/19/18 22:25 93/74 09/19/18 22:00 113 26 93/72 (79) 100 09/19/18 21:30 113 22 92/75 (81) 100 09/19/18 21:15 113 42 93/75 (81) 100 09/19/18 21:00 112 40 91/70 (77) 100 09/19/18 20:45 113 34 86/66 (73) 100 09/19/18 20:30 113 27 88/67 (74) 99 09/19/18 20:15 112 28 86/70 (75) 100 09/19/18 20:00 98.3 112 25 85/71 (76) 100 09/19/18 20:00 Venturi Mask 12.0 09/19/18 20:00 112 09/19/18 19:49 100 Nasal Cannula 2.0 28 09/19/18 19:45 112 36 88/69 (75) 100 09/19/18 19:42 112 18 100 Nasal Cannula 2.0 28 09/19/18 19:32 113 23 99 Nasal Cannula 2.0 28 09/19/18 19:30 112 32 88/71 (77) 100 09/19/18 19:00 117 32 100/79 (86) 98 09/19/18 19:00 85/71 09/19/18 19:00 85/71 09/19/18 18:42 87/71 09/19/18 18:41 87/71 09/19/18 18:30 113 25 91/73 (79) 99 09/19/18 18:30 112 28 87/71 (76) 99 09/19/18 18:00 112 25 81/65 (70) 99 09/19/18 18:00 90/73 09/19/18 18:00 90/73 09/19/18 18:00 112 25 90/65 (73) 100 09/19/18 17:30 130 25 90/73 (79) 95 09/19/18 17:30 90/73 09/19/18 17:00 139 27 94/74 (81) 98 09/19/18 17:00 90/73 09/19/18 17:00 95/71 09/19/18 16:45 139 28 95/71 (79) 98 09/19/18 16:45 94/74 09/19/18 16:30 118 30 95/74 (81) 99 09/19/18 16:30 95/71 09/19/18 16:15 93 27 107/90 (96) 100 09/19/18 16:15 95/74 09/19/18 16:07 87/70 09/19/18 16:07 87/70 09/19/18 16:00 100 09/19/18 16:00 97.6 99 31 87/70 (76) 100 09/19/18 16:00 99 31 87/70 (76) 100 09/19/18 16:00 107/90 09/19/18 16:00 Venturi Mask 12.0 09/19/18 15:30 98 33 92/77 (82) 99 Intake and Output 09/19/18 09/20/18 19:00 07:00 Intake Total 1722.7927 ml 2404.116 ml Output Total 570 ml 680 ml Balance 1152.7927 ml 1724.116 ml Intake Free Water 150 ml IV Total 1402.7927 ml 1609.116 ml Tube Feeding 320 ml 645 ml Output Urine Total 570 ml 680 ml Laboratory Tests Test 09/20/18 04:00 White Blood Count 7.4 K/UL (4.8-10.8) Red Blood Count 3.06 M/UL (4.70-6.10) L Hemoglobin 10.2 G/DL (14.2-18.0) L Hematocrit 32.8 % (42.0-52.0) L Mean Corpuscular Volume 107 FL (80-99) H Mean Corpuscular Hemoglobin 33.4 PG (27.0-31.0) H Mean Corpuscular Hemoglobin Concent 31.2 G/DL (32.0-36.0) L Red Cell Distribution Width 15.3 % (11.6-14.8) H Platelet Count 143 K/UL (150-450) L Mean Platelet Volume 9.4 FL (6.5-10.1) Neutrophils (%) (Auto) 76.0 % (45.0-75.0) H Lymphocytes (%) (Auto) 14.4 % (20.0-45.0) L Monocytes (%) (Auto) 7.0 % (1.0-10.0) Eosinophils (%) (Auto) 1.5 % (0.0-3.0) Basophils (%) (Auto) 1.1 % (0.0-2.0) Activated Partial Thromboplast Time 87 SEC (23-33) H Sodium Level 140 MMOL/L (136-145) Potassium Level 3.5 MMOL/L (3.5-5.1) Chloride Level 107 MMOL/L (98-107) Carbon Dioxide Level 26 MMOL/L (21-32) Anion Gap 8 mmol/L (5-15) Blood Urea Nitrogen 25 mg/dL (7-18) H Creatinine 1.1 MG/DL (0.55-1.30) Estimat Glomerular Filtration Rate mL/min (>60) Glucose Level 197 MG/DL (74-106) H Calcium Level 7.9 MG/DL (8.5-10.1) L Phosphorus Level 2.9 MG/DL (2.5-4.9) Magnesium Level 1.7 MG/DL (1.8-2.4) L Total Bilirubin 1.3 MG/DL (0.2-1.0) H Direct Bilirubin 0.6 MG/DL (0.0-0.3) H Aspartate Amino Transf (AST/SGOT) 16 U/L (15-37) Alanine Aminotransferase (ALT/SGPT) < 6 U/L (12-78) L Alkaline Phosphatase 57 U/L (46-116) Total Protein 5.8 G/DL (6.4-8.2) L Albumin 2.0 G/DL (3.4-5.0) L Globulin 3.8 g/dL Albumin/Globulin Ratio 0.5 (1.0-2.7) L Vitamin B12 Level 496 PG/ML (193-986) Methylmalonic Acid Pending Folate 2.5 NG/ML (8.6-58.9) L Microbiology Date/Time Source Procedure Growth Status 09/18/18 23:27 Blood Blood Culture - Preliminary Gram Positive Cocci Resulted 09/18/18 23:12 Blood Blood Culture - Preliminary NO GROWTH AFTER 24 HOURS Resulted Objective HEAD AND NECK: Face Mask with positive JVD. LUNGS: Coarse rhonchi. CARDIOVASCULAR: Irregular. S1 and S2 with no gallop or murmur. ABDOMEN: Soft.PEG in place EXTREMITIES: No pitting edema. Antonio Conde MD Sep 20, 2018 15:31
[2018-09-20] MEDS: DOPamine 400mg/250ml 250 ML IV SCH ×2 (15:40→23:00)
--- NOTE | 2018-09-20 18:23 | Nephrology Progress Note ---
Assessment/Plan Assessment 1. Prerenal azotemia and dehydration. 2. Hypocalcemia. 3. Hypomagnesemia. 4. Possible failure to thrive, low albumin and low total protein. Pre-albumin level needs to be checked. 5. Possible pneumonia. Plan continue current iv monitoring renal function avoid NSAID replace electrolyte Subjective ROS Limited/Unobtainable: Yes Subjective continue to be in icu alert and awake [place] [facility] Objective Objective Last 24 Hour Vital Signs Date Time Temp Pulse Resp B/P (MAP) Pulse Ox O2 Delivery O2 Flow Rate FiO2 09/20/18 18:00 93/72 09/20/18 18:00 93/72 09/20/18 18:00 77 35 93/72 (79) 99 09/20/18 17:30 78 23 93/72 (79) 99 09/20/18 17:00 102/72 09/20/18 17:00 100/72 09/20/18 17:00 102 22 102/71 (81) 100 09/20/18 16:30 110 27 98/79 (85) 100 09/20/18 16:00 98.0 108 18 98/79 (85) 100 09/20/18 16:00 111 09/20/18 16:00 98/79 09/20/18 16:00 98/79 09/20/18 16:00 Nasal Cannula 2.0 09/20/18 15:40 93/74 09/20/18 15:40 93/74 09/20/18 15:40 93/74 09/20/18 15:40 93/74 09/20/18 15:39 113 09/20/18 15:30 112 25 93/74 (80) 100 09/20/18 15:20 118 Nasal Cannula 2.0 28 09/20/18 15:20 Nasal Cannula 2.0 28 09/20/18 15:00 112 19 92/75 (81) 99 09/20/18 15:00 92/75 09/20/18 15:00 92/75 09/20/18 14:30 109 23 89/74 (79) 100 09/20/18 14:00 112 20 90/73 (79) 100 09/20/18 14:00 92/75 09/20/18 14:00 90/73 09/20/18 13:52 90/73 09/20/18 13:30 107 20 90/73 (79) 100 09/20/18 13:00 87/71 09/20/18 13:00 87/71 09/20/18 13:00 110 21 87/71 (76) 100 09/20/18 12:30 111 28 94/71 (79) 97 09/20/18 12:00 98.5 111 41 111/82 (92) 100 09/20/18 12:00 97/74 09/20/18 12:00 111/82 09/20/18 12:00 108 09/20/18 12:00 Nasal Cannula 2.0 09/20/18 11:30 112 30 94/75 (81) 100 09/20/18 11:00 107 21 94/71 (79) 100 09/20/18 11:00 94/74 09/20/18 11:00 94/71 09/20/18 10:55 105 18 100 Nasal Cannula 2.0 09/20/18 10:46 113 18 100 Nasal Cannula 2.0 09/20/18 10:30 112 20 87/72 (77) 99 09/20/18 10:00 91/75 09/20/18 10:00 91/75 09/20/18 10:00 112 32 91/75 (80) 100 09/20/18 09:30 113 43 94/75 (81) 100 09/20/18 09:28 96/75 09/20/18 09:02 111 09/20/18 09:00 112 46 96/75 (82) 100 09/20/18 09:00 96/75 09/20/18 09:00 96/75 09/20/18 08:45 113 30 100/74 (83) 100 09/20/18 08:30 111 36 100/74 (83) 100 09/20/18 08:15 110 40 95/73 (80) 100 09/20/18 08:00 95/73 09/20/18 08:00 95/73 09/20/18 08:00 Nasal Cannula 2.0 09/20/18 08:00 111 09/20/18 08:00 97.5 106 43 95/73 (80) 100 09/20/18 07:45 106 25 87/70 (76) 100 09/20/18 07:45 87/70 09/20/18 07:30 110 42 87/70 (76) 99 09/20/18 07:00 104 28 88/68 (75) 100 09/20/18 06:46 100 Nasal Cannula 2.0 28 09/20/18 06:45 117 Nasal Cannula 2.0 28 09/20/18 06:45 Nasal Cannula 2.0 28 09/20/18 06:30 112 40 86/68 (74) 100 09/20/18 06:00 111 43 90/73 (79) 100 09/20/18 05:30 113 41 82/66 (71) 100 09/20/18 05:00 115 42 83/67 (72) 100 09/20/18 04:32 114 34 90/69 (76) 09/20/18 04:30 114 29 91/72 (78) 09/20/18 04:00 98.9 113 26 89/67 (74) 100 09/20/18 04:00 Venturi Mask 12.0 09/20/18 04:00 112 09/20/18 03:46 116 18 100 Nasal Cannula 2.0 09/20/18 03:38 110 18 100 Nasal Cannula 2.0 28 09/20/18 03:30 111 11 99/75 (83) 99 09/20/18 03:00 115 22 91/78 (82) 98 09/20/18 02:30 123 17 95/73 (80) 100 09/20/18 02:00 114 23 94/77 (83) 100 09/20/18 01:30 118 25 90/73 (79) 100 09/20/18 01:00 118 26 95/68 (77) 100 09/20/18 00:30 121 29 90/73 (79) 100 09/20/18 00:00 Venturi Mask 12.0 09/20/18 00:00 98.6 114 23 92/75 (81) 100 09/20/18 00:00 114 09/19/18 23:30 114 19 91/72 (78) 100 09/19/18 23:12 124 18 100 Nasal Cannula 2.0 09/19/18 23:01 112 20 99 Nasal Cannula 2.0 28 09/19/18 23:00 113 25 90/74 (79) 100 09/19/18 22:30 113 19 91/74 (80) 100 09/19/18 22:25 93/74 09/19/18 22:00 113 26 93/72 (79) 100 09/19/18 21:30 113 22 92/75 (81) 100 09/19/18 21:15 113 42 93/75 (81) 100 09/19/18 21:00 112 40 91/70 (77) 100 09/19/18 20:45 113 34 86/66 (73) 100 09/19/18 20:30 113 27 88/67 (74) 99 09/19/18 20:15 112 28 86/70 (75) 100 09/19/18 20:00 98.3 112 25 85/71 (76) 100 09/19/18 20:00 Venturi Mask 12.0 09/19/18 20:00 112 09/19/18 19:49 100 Nasal Cannula 2.0 28 09/19/18 19:45 112 36 88/69 (75) 100 09/19/18 19:42 112 18 100 Nasal Cannula 2.0 28 09/19/18 19:32 113 23 99 Nasal Cannula 2.0 28 09/19/18 19:30 112 32 88/71 (77) 100 09/19/18 19:00 117 32 100/79 (86) 98 09/19/18 19:00 85/71 09/19/18 19:00 85/71 09/19/18 18:42 87/71 09/19/18 18:41 87/71 09/19/18 18:30 113 25 91/73 (79) 99 09/19/18 18:30 112 28 87/71 (76) 99 Intake and Output 09/19/18 09/20/18 19:00 07:00 Intake Total 1722.7927 ml 2404.116 ml Output Total 570 ml 680 ml Balance 1152.7927 ml 1724.116 ml Intake Free Water 150 ml IV Total 1402.7927 ml 1609.116 ml Tube Feeding 320 ml 645 ml Output Urine Total 570 ml 680 ml Laboratory Tests 09/20/18 04:00: White Blood Count 7.4, Red Blood Count 3.06L, Hemoglobin 10.2L, Hematocrit 32.8L , Mean Corpuscular Volume 107H, Mean Corpuscular Hemoglobin 33.4H, Mean Corpuscular Hemoglobin Concent 31.2L, Red Cell Distribution Width 15.3H, Platelet Count 143L, Mean Platelet Volume 9.4, Neutrophils (%) (Auto) 76.0H, Lymphocytes (%) (Auto) 14.4L, Monocytes (%) (Auto) 7.0, Eosinophils (%) (Auto) 1.5, Basophils (%) (Auto) 1.1, Activated Partial Thromboplast Time 87H, Sodium Level 140, Potassium Level 3.5, Chloride Level 107, Carbon Dioxide Level 26, Anion Gap 8, Blood Urea Nitrogen 25H, Creatinine 1.1, Estimat Glomerular Filtration Rate , Glucose Level 197H, Calcium Level 7.9L, Phosphorus Level 2.9, Magnesium Level 1.7L, Total Bilirubin 1.3H, Direct Bilirubin 0.6H, Aspartate Amino Transf (AST/SGOT) 16, Alanine Aminotransferase (ALT/SGPT) < 6L, Alkaline Phosphatase 57, Total Protein 5.8L, Albumin 2.0L, Globulin 3.8, Albumin/ Globulin Ratio 0.5L, Vitamin B12 Level 496, Methylmalonic Acid [Pending], Folate 2.5L Height (Feet): 5 Height (Inches): 8.00 Weight (Pounds): 129 Objective HEAD AND NECK: No JVP. No LAD. No thyromegaly. Bitemporal wasting. Mucous membranes are dry. LUNGS: Bilateral rhonchi. CARDIAC: Regular rate and rhythm. S1 and S2. No murmur. No rub. ABDOMEN: Soft, nontender, and nondistended. EXTREMITIES: No edema. No clubbing. No cyanosis. Tiffanie Huber MD Sep 20, 2018 18:23
[2018-09-20] MEDS: Dyna-Hex 2% Top Sol 2oz TOPIC SCH (20:28)
--- NOTE | 2018-09-20 23:09 | General Progress Note ---
Assessment/Plan Problem List: (1) Atrial fibrillation ICD Codes: I48.91 - Unspecified atrial fibrillation SNOMED: 98142144 (2) Anemia ICD Codes: D64.9 - Anemia, unspecified SNOMED: 558063465 (3) Severe protein-calorie malnutrition ICD Codes: E43 - Unspecified severe protein-calorie malnutrition SNOMED: 684178801, 931635510, 697524692 (4) Encounter for PEG (percutaneous endoscopic gastrostomy) ICD Codes: Z43.1 - Encounter for attention to gastrostomy SNOMED: 362209017, 528544020 (5) Altered level of consciousness ICD Codes: R40.4 - Transient alteration of awareness SNOMED: 0850697 (6) Hypotension ICD Codes: I95.9 - Hypotension, unspecified SNOMED: 06090008 Status: unchanged Assessment/Plan: a fib hypotension reviewed chart and labs positive bllod cx septic shock resp insuff s/p pressors Subjective ROS Limited/Unobtainable: Yes Allergies: Coded Allergies: No Known Allergies (Unverified , 01/07/18) Objective Last 24 Hour Vital Signs Date Time Temp Pulse Resp B/P (MAP) Pulse Ox O2 Delivery O2 Flow Rate FiO2 09/20/18 20:30 83 17 88/66 (73) 100 09/20/18 20:00 98.6 86 32 83/67 (72) 99 09/20/18 19:38 84 18 100 Nasal Cannula 2.0 28 09/20/18 19:30 79 22 95/68 (77) 100 09/20/18 19:29 100 Nasal Cannula 2.0 28 09/20/18 19:28 76 24 100 Nasal Cannula 2.0 28 09/20/18 19:00 84 22 90/68 (75) 100 09/20/18 19:00 90/68 09/20/18 19:00 90/68 09/20/18 18:30 86 29 91/65 (74) 09/20/18 18:00 93/72 09/20/18 18:00 93/72 09/20/18 18:00 77 35 93/72 (79) 99 09/20/18 17:30 78 23 93/72 (79) 99 09/20/18 17:00 102/72 09/20/18 17:00 100/72 09/20/18 17:00 102 22 102/71 (81) 100 09/20/18 16:30 110 27 98/79 (85) 100 09/20/18 16:00 98.0 108 18 98/79 (85) 100 09/20/18 16:00 111 09/20/18 16:00 98/79 09/20/18 16:00 98/79 09/20/18 16:00 Nasal Cannula 2.0 09/20/18 15:40 93/74 09/20/18 15:40 93/74 09/20/18 15:40 93/74 09/20/18 15:40 93/74 09/20/18 15:39 113 09/20/18 15:30 112 25 93/74 (80) 100 09/20/18 15:20 118 Nasal Cannula 2.0 28 09/20/18 15:20 Nasal Cannula 2.0 28 09/20/18 15:00 112 19 92/75 (81) 99 09/20/18 15:00 92/75 09/20/18 15:00 92/75 09/20/18 14:30 109 23 89/74 (79) 100 09/20/18 14:00 112 20 90/73 (79) 100 09/20/18 14:00 92/75 09/20/18 14:00 90/73 09/20/18 13:52 90/73 09/20/18 13:30 107 20 90/73 (79) 100 09/20/18 13:00 87/71 09/20/18 13:00 87/71 09/20/18 13:00 110 21 87/71 (76) 100 09/20/18 12:30 111 28 94/71 (79) 97 09/20/18 12:00 98.5 111 41 111/82 (92) 100 09/20/18 12:00 97/74 09/20/18 12:00 111/82 09/20/18 12:00 108 09/20/18 12:00 Nasal Cannula 2.0 09/20/18 11:30 112 30 94/75 (81) 100 09/20/18 11:00 107 21 94/71 (79) 100 09/20/18 11:00 94/74 09/20/18 11:00 94/71 09/20/18 10:55 105 18 100 Nasal Cannula 2.0 28 09/20/18 10:46 113 18 100 Nasal Cannula 2.0 28 09/20/18 10:30 112 20 87/72 (77) 99 09/20/18 10:00 91/75 09/20/18 10:00 91/75 09/20/18 10:00 112 32 91/75 (80) 100 09/20/18 09:30 113 43 94/75 (81) 100 09/20/18 09:28 96/75 09/20/18 09:02 111 09/20/18 09:00 112 46 96/75 (82) 100 09/20/18 09:00 96/75 09/20/18 09:00 96/75 09/20/18 08:45 113 30 100/74 (83) 100 09/20/18 08:30 111 36 100/74 (83) 100 09/20/18 08:15 110 40 95/73 (80) 100 09/20/18 08:00 95/73 09/20/18 08:00 95/73 09/20/18 08:00 Nasal Cannula 2.0 09/20/18 08:00 111 09/20/18 08:00 97.5 106 43 95/73 (80) 100 09/20/18 07:45 106 25 87/70 (76) 100 09/20/18 07:45 87/70 09/20/18 07:30 110 42 87/70 (76) 99 09/20/18 07:00 104 28 88/68 (75) 100 09/20/18 06:46 100 Nasal Cannula 2.0 09/20/18 06:45 117 Nasal Cannula 2.0 09/20/18 06:45 Nasal Cannula 2.0 28 09/20/18 06:30 112 40 86/68 (74) 100 09/20/18 06:00 111 43 90/73 (79) 100 09/20/18 05:30 113 41 82/66 (71) 100 09/20/18 05:00 115 42 83/67 (72) 100 09/20/18 04:32 114 34 90/69 (76) 09/20/18 04:30 114 29 91/72 (78) 09/20/18 04:00 98.9 113 26 89/67 (74) 100 09/20/18 04:00 Venturi Mask 12.0 09/20/18 04:00 112 09/20/18 03:46 116 18 100 Nasal Cannula 2.0 28 09/20/18 03:38 110 18 100 Nasal Cannula 2.0 28 09/20/18 03:30 111 11 99/75 (83) 99 09/20/18 03:00 115 22 91/78 (82) 98 09/20/18 02:30 123 17 95/73 (80) 100 09/20/18 02:00 114 23 94/77 (83) 100 09/20/18 01:30 118 25 90/73 (79) 100 09/20/18 01:00 118 26 95/68 (77) 100 09/20/18 00:30 121 29 90/73 (79) 100 09/20/18 00:00 Venturi Mask 12.0 09/20/18 00:00 98.6 114 23 92/75 (81) 100 09/20/18 00:00 114 09/19/18 23:30 114 19 91/72 (78) 100 09/19/18 23:12 124 18 100 Nasal Cannula 2.0 28 Intake and Output 09/19/18 09/20/18 19:00 07:00 Intake Total 1722.7927 ml 2404.116 ml Output Total 570 ml 680 ml Balance 1152.7927 ml 1724.116 ml Intake Free Water 150 ml IV Total 1402.7927 ml 1609.116 ml Tube Feeding 320 ml 645 ml Output Urine Total 570 ml 680 ml Laboratory Tests 09/20/18 04:00: White Blood Count 7.4, Red Blood Count 3.06L, Hemoglobin 10.2L, Hematocrit 32.8L , Mean Corpuscular Volume 107H, Mean Corpuscular Hemoglobin 33.4H, Mean Corpuscular Hemoglobin Concent 31.2L, Red Cell Distribution Width 15.3H, Platelet Count 143L, Mean Platelet Volume 9.4, Neutrophils (%) (Auto) 76.0H, Lymphocytes (%) (Auto) 14.4L, Monocytes (%) (Auto) 7.0, Eosinophils (%) (Auto) 1.5, Basophils (%) (Auto) 1.1, Activated Partial Thromboplast Time 87H, Sodium Level 140, Potassium Level 3.5, Chloride Level 107, Carbon Dioxide Level 26, Anion Gap 8, Blood Urea Nitrogen 25H, Creatinine 1.1, Estimat Glomerular Filtration Rate , Glucose Level 197H, Calcium Level 7.9L, Phosphorus Level 2.9, Magnesium Level 1.7L, Total Bilirubin 1.3H, Direct Bilirubin 0.6H, Aspartate Amino Transf (AST/SGOT) 16, Alanine Aminotransferase (ALT/SGPT) < 6L, Alkaline Phosphatase 57, Total Protein 5.8L, Albumin 2.0L, Globulin 3.8, Albumin/ Globulin Ratio 0.5L, Vitamin B12 Level 496, Methylmalonic Acid [Pending], Folate 2.5L Height (Feet): 5 Height (Inches): 8.00 Weight (Pounds): 129 General Appearance: confused Abdomen: soft Inocencia Watt MD Sep 20, 2018 23:08
[2018-09-21] VITALS (51 sets, daily range): BP systolic 82–117; BP diastolic 63–97
[2018-09-21] MEDS: Albuterol/Ipratropium 3ml neb HHN SCH ×7 (00:48→23:00)
--- NOTE | 2018-09-21 03:00 | Progress Note ---
DATE: 09/20/2018 NOTE: POOR/INAUDIBLE AUDIO SUBJECTIVE: The patient is doing a little bit better on his antibiotics. Did have Gram-positive cocci, and positive blood cultures. His chest x-ray is very abnormal, however, showing a combination of congestive heart failure and pneumonia. His troponin is 0.114, which is elevated with calcium of 1.9 and an albumin of . BUN today is 25, yesterday was 33, creatinine 1.1 magnesium is 1.7 . The patient's . The patient's blood pressure . IMPRESSION: This patient has . Gibson Bernal MD DR: MARU JOB#: [id number] CC:
[2018-09-21] MEDS: DOBUTamine 250mg/250ml Premix 250 ML IV SCH (04:02)
[2018-09-21 04:48] LABS: EOSINOPHILS % (AUTO) 1.9 % (0.0-3.0); HEMATOCRIT 33.4 % (42.0-52.0); HEMOGLOBIN 10.7 G/DL (14.2-18.0); LYMPHOCYTES % (AUTO) 13.7 % (20.0-45.0); MEAN CORPUSCULAR VOLUME 106 FL (80-99); NEUTROPHILS % (AUTO) 76.4 % (45.0-75.0); PLATELET COUNT 140 K/UL (150-450); RED BLOOD COUNT 3.16 M/UL (4.70-6.10); RED CELL DISTRIBUTION WIDTH 14.5 % (11.6-14.8); WHITE BLOOD COUNT 6.9 K/UL (4.8-10.8)
[2018-09-21 04:54] LABS: ALANINE AMINOTRANSFERASE < 6 U/L (12-78); ALKALINE PHOSPHATASE 57 U/L (46-116); ANION GAP 6 mmol/L (5-15); ASPARTATE AMINO TRANSFERASE 15 U/L (15-37); BILIRUBIN,DIRECT 0.6 MG/DL (0.0-0.3); BILIRUBIN,TOTAL 1.1 MG/DL (0.2-1.0); BLOOD UREA NITROGEN 21 mg/dL (7-18); CALCIUM 7.5 MG/DL (8.5-10.1); CARBON DIOXIDE 24 MMOL/L (21-32); CHLORIDE 107 MMOL/L (98-107); PHOSPHORUS 2.6 MG/DL (2.5-4.9); POTASSIUM 3.4 MMOL/L (3.5-5.1); SODIUM 137 MMOL/L (136-145)
[2018-09-21] MEDS ORDERED: Heparin 25,000u/D5W 500ml (VTE/AF) IV SCH ×2 (05:40→05:50)
[2018-09-21] MEDS: Piperacillin/Tazobactam 4.5 GM in NS 110 ML IVPB SCH ×3 (06:11→21:56)
--- NOTE | 2018-09-21 06:34 | General Progress Note ---
Assessment/Plan Status: unchanged Assessment/Plan: 1. Hypertension. 2. History of non-ST elevation myocardial infarction. 3. Severe cardiomyopathy with EF of 20%. 4. Atrial flutter. 5. Right leg DVT. 6. Dysphagia with G-tube placement in last admission. GTF on pressors abx per ID on heparin drip for A. flutter fu labs Subjective ROS Limited/Unobtainable: No Allergies: Coded Allergies: No Known Allergies (Unverified , 01/07/18) Objective Last 24 Hour Vital Signs Date Time Temp Pulse Resp B/P (MAP) Pulse Ox O2 Delivery O2 Flow Rate FiO2 09/21/18 04:30 104 25 94/63 (73) 100 09/21/18 04:02 67/47 09/21/18 04:01 97/98 09/21/18 04:00 98.6 109 21 86/72 (77) 100 09/21/18 04:00 Nasal Cannula 2.0 09/21/18 04:00 100 09/21/18 03:30 111 22 97/68 (78) 98 09/21/18 03:25 111 20 100 Nasal Cannula 2.0 28 09/21/18 03:15 93 19 98 Nasal Cannula 2.0 28 09/21/18 03:00 101 26 99/72 (81) 97 09/21/18 02:30 92 23 106/76 (86) 100 09/21/18 02:00 84 20 91/65 (74) 100 09/21/18 01:30 85 22 91/76 (81) 100 09/21/18 01:03 94 22 100 Nasal Cannula 2.0 28 09/21/18 01:00 90 22 95/76 (82) 100 09/21/18 00:49 94 19 100 Nasal Cannula 2.0 28 09/21/18 00:30 84 24 100/77 (85) 100 09/21/18 00:07 83 09/21/18 00:00 82 09/21/18 00:00 98.5 85 20 101/69 (80) 100 09/21/18 00:00 Nasal Cannula 2.0 09/20/18 23:39 81 38 87/64 (72) 100 09/20/18 23:30 69 40 76/60 (65) 100 09/20/18 23:00 94/72 09/20/18 23:00 102 32 94/73 (80) 100 09/20/18 22:30 98 28 91/72 (78) 100 09/20/18 22:00 110 25 92/74 (80) 100 09/20/18 21:30 109 39 95/72 (80) 100 09/20/18 21:00 108 33 97/72 (80) 100 09/20/18 20:30 83 17 88/66 (73) 100 09/20/18 20:00 84 09/20/18 20:00 98.6 86 32 83/67 (72) 99 09/20/18 20:00 Nasal Cannula 2.0 09/20/18 19:38 84 18 100 Nasal Cannula 2.0 28 09/20/18 19:30 79 22 95/68 (77) 100 09/20/18 19:29 100 Nasal Cannula 2.0 28 09/20/18 19:28 76 24 100 Nasal Cannula 2.0 28 09/20/18 19:00 84 22 90/68 (75) 100 09/20/18 19:00 90/68 09/20/18 19:00 90/68 09/20/18 18:30 86 29 91/65 (74) 09/20/18 18:00 93/72 09/20/18 18:00 93/72 09/20/18 18:00 77 35 93/72 (79) 99 09/20/18 17:30 78 23 93/72 (79) 99 09/20/18 17:00 102/72 09/20/18 17:00 100/72 09/20/18 17:00 102 22 102/71 (81) 100 09/20/18 16:30 110 27 98/79 (85) 100 09/20/18 16:00 98.0 108 18 98/79 (85) 100 09/20/18 16:00 111 09/20/18 16:00 98/79 09/20/18 16:00 98/79 09/20/18 16:00 Nasal Cannula 2.0 09/20/18 15:40 93/74 09/20/18 15:40 93/74 09/20/18 15:40 93/74 09/20/18 15:40 93/74 09/20/18 15:39 113 09/20/18 15:30 112 25 93/74 (80) 100 09/20/18 15:20 118 Nasal Cannula 2.0 28 09/20/18 15:20 Nasal Cannula 2.0 28 09/20/18 15:00 112 19 92/75 (81) 99 09/20/18 15:00 92/75 09/20/18 15:00 92/75 09/20/18 14:30 109 23 89/74 (79) 100 09/20/18 14:00 112 20 90/73 (79) 100 09/20/18 14:00 92/75 09/20/18 14:00 90/73 09/20/18 13:52 90/73 09/20/18 13:30 107 20 90/73 (79) 100 09/20/18 13:00 87/71 09/20/18 13:00 87/71 09/20/18 13:00 110 21 87/71 (76) 100 09/20/18 12:30 111 28 94/71 (79) 97 09/20/18 12:00 98.5 111 41 111/82 (92) 100 09/20/18 12:00 97/74 09/20/18 12:00 111/82 09/20/18 12:00 108 09/20/18 12:00 Nasal Cannula 2.0 09/20/18 11:30 112 30 94/75 (81) 100 09/20/18 11:00 107 21 94/71 (79) 100 09/20/18 11:00 94/74 09/20/18 11:00 94/71 09/20/18 10:55 105 18 100 Nasal Cannula 2.0 28 09/20/18 10:46 113 18 100 Nasal Cannula 2.0 28 09/20/18 10:30 112 20 87/72 (77) 99 09/20/18 10:00 91/75 09/20/18 10:00 91/75 09/20/18 10:00 112 32 91/75 (80) 100 09/20/18 09:30 113 43 94/75 (81) 100 09/20/18 09:28 96/75 09/20/18 09:02 111 09/20/18 09:00 112 46 96/75 (82) 100 09/20/18 09:00 96/75 09/20/18 09:00 96/75 09/20/18 08:45 113 30 100/74 (83) 100 09/20/18 08:30 111 36 100/74 (83) 100 09/20/18 08:15 110 40 95/73 (80) 100 09/20/18 08:00 95/73 09/20/18 08:00 95/73 09/20/18 08:00 Nasal Cannula 2.0 09/20/18 08:00 111 09/20/18 08:00 97.5 106 43 95/73 (80) 100 09/20/18 07:45 106 25 87/70 (76) 100 09/20/18 07:45 87/70 09/20/18 07:30 110 42 87/70 (76) 99 09/20/18 07:00 104 28 88/68 (75) 100 09/20/18 06:46 100 Nasal Cannula 2.0 28 09/20/18 06:45 117 Nasal Cannula 2.0 28 09/20/18 06:45 Nasal Cannula 2.0 28 Intake and Output 09/20/18 09/21/18 18:59 06:59 Intake Total 2663.411 ml 1823.921 ml Output Total 560 ml 660 ml Balance 2103.411 ml 1163.921 ml Intake Free Water 50 ml 300 ml IV Total 1953.411 ml 973.921 ml Tube Feeding 660 ml 550 ml Output Urine Total 560 ml 660 ml Laboratory Tests 09/21/18 04:25: White Blood Count 6.9, Red Blood Count 3.16L, Hemoglobin 10.7L, Hematocrit 33.4L , Mean Corpuscular Volume 106H, Mean Corpuscular Hemoglobin 33.9H, Mean Corpuscular Hemoglobin Concent 32.1, Red Cell Distribution Width 14.5, Platelet Count 140L, Mean Platelet Volume 9.6, Neutrophils (%) (Auto) 76.4H, Lymphocytes (%) (Auto) 13.7L, Monocytes (%) (Auto) 7.0, Eosinophils (%) (Auto) 1.9, Basophils (%) (Auto) 1.0, Activated Partial Thromboplast Time 108H, Sodium Level 137, Potassium Level 3.4L, Chloride Level 107, Carbon Dioxide Level 24, Anion Gap 6, Blood Urea Nitrogen 21H, Creatinine 1.0, Estimat Glomerular Filtration Rate , Glucose Level 171H, Calcium Level 7.5L, Phosphorus Level 2.6, Magnesium Level 2.0, Total Bilirubin 1.1H, Direct Bilirubin 0.6H, Aspartate Amino Transf (AST/SGOT) 15, Alanine Aminotransferase (ALT/SGPT) < 6L, Alkaline Phosphatase 57, Total Protein 6.0L, Albumin 2.0L, Digoxin Level 1.6 Height (Feet): 5 Height (Inches): 8.00 Weight (Pounds): 129 General Appearance: lethargic EENT: normal ENT inspection Neck: supple Cardiovascular: tachycardia Respiratory/Chest: decreased breath sounds Abdomen: normal bowel sounds, non tender, soft Extremities: non-tender Phoenix Boo MD Sep 21, 2018 06:34
[2018-09-21] MEDS ORDERED: Vancomycin 1.25gm Premix IVPB SCH (07:30)
[2018-09-21] MEDS: Heparin 25,000u/D5W 500ml (VTE/AF) IV SCH (08:05)
[2018-09-21] MEDS: Vancomycin 1.25gm Premix IVPB SCH (08:07)
[2018-09-21] MEDS: Acetaminophen 650mg/20.3ml GT PRN (08:07)
[2018-09-21] MEDS: Digoxin 0.125mg tab PEG SCH (08:08)
[2018-09-21] MEDS: Aspirin Baby 81mg GT SCH (08:08)
[2018-09-21] MEDS: Pantoprazole Inj IVP SCH (08:09)
--- NOTE | 2018-09-21 09:44 | Hematology/Onc Progress Note ---
Assessment/Plan Assessment/Plan Assessment and Recs: # Acute right leg DVT hx, before was on eliquis, currently is on heparin gtt also with mobile clot --> cards aware from prior admission --> currently on heparin gtt --> ONCE is on coumadin/lovenox, inr goal is 2-3 --> monitor for bleeding # Anemia of chronic disease due to underlying chronic medical issues, multifactorial. --> Anemia w/u has been reviewed. Ferritin at 450. --> hgb goal >7. Transfuse prn. --> No evidence of hemolysis noted --> hgb trend 12-->10.7 # Thrombocytopenia - most likely related to PNA infection. 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 CXR has been reviewed. --> May need abx --> pulm eval prn --> on multiple pressors in the icu # Myocardial infarction. --> Cardiac cath [address] Conde # Atrial flutter with rapid ventricular response (reason for this admission). --> per cards, potential ablation --> potential icd placement --> on dobutamine, other pressors as needed, dig --> on heparin gtt, to continue # Psych disorder -- as per psych recs The timing of this note does not necessarily reflect the time of the patient was seen. Greatly appreciate consultation! Subjective HEENT: Denies: no symptoms, eye pain, blurred vision, tearing, double vision, ear pain, ear discharge, nose pain, nose congestion, throat pain, throat swelling, mouth pain, mouth swelling, other Cardiovascular: Denies: no symptoms, chest pain, edema, irregular heart rate, lightheadedness, palpitations, syncope, other Respiratory: Denies: no symptoms, cough, shortness of breath, SOB with excertion, SOB at rest, sputum, wheezing, other Gastrointestinal/Abdominal: Denies: no symptoms, abdomen distended, abdominal pain, black stools, tarry stools, blood in stool, constipated, diarrhea, difficulty swallowing, nausea, poor appetite, poor fluid intake, rectal bleeding , vomiting, other Genitourinary: Denies: no symptoms, burning, discharge, frequency, flank pain, hematuria, incontinence, pain, urgency, other Neurologic/Psychiatric: Denies: no symptoms, anxiety, depressed, emotional problems, headache, numbness, paresthesia, pre-existing deficit, seizure, tingling, tremors, weakness, other Endocrine: Denies: no symptoms, excessive sweating, flushing, intolerance to cold, intolerance to heat, increased hunger, increased thirst, increased urine, unexplained weight gain, unexplained weight loss, other Hematologic/Lymphatic: Denies: no symptoms, anemia, easy bleeding, easy bruising, adenopathy, other Allergies: Coded Allergies: No Known Allergies (Unverified , 01/07/18) Subjective Subjective 09/19: was discharged yesterday, now comes back in for hypotension, on dig, and heparin gtt, cards seen 09/21: no events, no fevers or chills, no bleeding, on abx, off pressors, is on heparin gtt Objective Objective Current Medications Medications (Trade) Dose Ordered Sig/Fritz Route PRN Reason Start Time Stop Time Status Last Admin Dose Admin Acetaminophen (Tylenol) 650 mg Q6H PRN GT Mild Pain/Temp > 100.5 09/19/18 03:45 10/19/18 03:44 09/21/18 08:07 Albuterol/ Ipratropium (Albuterol/ Ipratropium) 3 ml Q4H PRN HHN Shortness of Breath 09/19/18 03:30 09/24/18 03:29 Albuterol/ Ipratropium (Albuterol/ Ipratropium) 3 ml Q4HRT HHN 09/19/18 11:00 09/24/18 10:59 09/21/18 06:47 Aspirin (ASA) 81 mg DAILY GT 09/19/18 09:00 10/19/18 08:59 09/21/18 08:08 Chlorhexidine Gluconate (Nadeen-Hex 2%) 1 applic DAILY@2000 TOPIC 09/19/18 20:00 10/19/18 19:59 09/20/18 20:28 Dextrose/Sodium Chloride 1,000 ml @ 60 mls/hr [id number] IV 09/19/18 09:45 10/19/18 09:44 09/20/18 19:18 Digoxin (Lanoxin) 0.125 mg DAILY PEG 09/20/18 09:00 10/20/18 08:59 09/21/18 08:08 Dobutamine HCl 250 ml @ 10.497 mls/ hr Q24H IV 09/20/18 16:00 10/19/18 15:59 09/21/18 04:02 Dopamine HCl/ Dextrose 250 ml @ 6.56 mls/hr Q24H IV 09/20/18 16:00 10/19/18 15:59 09/20/18 23:00 Furosemide (Lasix) 20 mg DAILY GT 09/19/18 09:00 10/19/18 08:59 09/21/18 08:22 Heparin Sodium/ Dextrose 500 ml @ 17.58 mls/ hr ADJUST PER PROTOCOL IV 09/21/18 07:15 10/21/18 05:39 09/21/18 08:05 Norepinephrine Bitartrate 8 mg/ Dextrose 254 ml @ 0 mls/hr Q24H IV 09/19/18 03:30 10/19/18 03:29 09/21/18 04:01 Ondansetron HCl (Zofran) 4 mg Q4H PRN IVP Nausea & Vomiting 09/19/18 04:15 10/19/18 04:14 Pantoprazole (Protonix) 40 mg DAILY IVP 09/19/18 09:00 10/19/18 08:59 09/21/18 08:09 Piperacillin Sod/ Tazobactam Sod 4.5 gm/Sodium Chloride 110 ml @ 27.5 mls/hr Q8HR IVPB 09/19/18 06:00 09/26/18 05:59 09/21/18 06:11 Potassium Chloride 100 ml @ 50 mls/hr ONCE ONCE IVPB 09/21/18 09:00 09/21/18 10:59 Vancomycin HCl (Vanco rx to dose) 1 ea DAILY PRN MISC Per rx protocol 09/19/18 03:30 10/19/18 03:29 Vancomycin HCl/ Dextrose 275 ml @ 183.333 mls/hr Q24H IVPB 09/21/18 08:30 09/26/18 08:29 09/21/18 08:07 Last 24 Hour Vital Signs Date Time Temp Pulse Resp B/P (MAP) Pulse Ox O2 Delivery O2 Flow Rate FiO2 09/21/18 08:08 108 09/21/18 07:30 107 25 101/82 (88) 99 09/21/18 07:00 105 26 98/79 (85) 100 09/21/18 06:55 98 24 100 Nasal Cannula 2.0 28 09/21/18 06:48 100 Nasal Cannula 2.0 28 09/21/18 06:47 93 28 100 Nasal Cannula 2.0 28 09/21/18 06:30 99 27 99/76 (84) 98 09/21/18 06:00 107 27 97/73 (81) 99 09/21/18 05:30 97 25 98/81 (87) 100 09/21/18 05:00 102 29 96/81 (86) 100 09/21/18 04:30 104 25 94/63 (73) 100 09/21/18 04:02 67/47 09/21/18 04:01 97/98 09/21/18 04:00 98.6 109 21 86/72 (77) 100 09/21/18 04:00 Nasal Cannula 2.0 09/21/18 04:00 100 09/21/18 03:30 111 22 97/68 (78) 98 09/21/18 03:25 111 20 100 Nasal Cannula 2.0 28 09/21/18 03:15 93 19 98 Nasal Cannula 2.0 28 09/21/18 03:00 101 26 99/72 (81) 97 09/21/18 02:30 92 23 106/76 (86) 100 09/21/18 02:00 84 20 91/65 (74) 100 09/21/18 01:30 85 22 91/76 (81) 100 09/21/18 01:03 94 22 100 Nasal Cannula 2.0 28 09/21/18 01:00 90 22 95/76 (82) 100 09/21/18 00:49 94 19 100 Nasal Cannula 2.0 28 09/21/18 00:30 84 24 100/77 (85) 100 09/21/18 00:07 83 09/21/18 00:00 82 09/21/18 00:00 98.5 85 20 101/69 (80) 100 09/21/18 00:00 Nasal Cannula 2.0 09/20/18 23:39 81 38 87/64 (72) 100 09/20/18 23:30 69 40 76/60 (65) 100 09/20/18 23:00 94/72 09/20/18 23:00 102 32 94/73 (80) 100 09/20/18 22:30 98 28 91/72 (78) 100 09/20/18 22:00 110 25 92/74 (80) 100 09/20/18 21:30 109 39 95/72 (80) 100 09/20/18 21:00 108 33 97/72 (80) 100 09/20/18 20:30 83 17 88/66 (73) 100 09/20/18 20:00 84 09/20/18 20:00 98.6 86 32 83/67 (72) 99 09/20/18 20:00 Nasal Cannula 2.0 09/20/18 19:38 84 18 100 Nasal Cannula 2.0 28 09/20/18 19:30 79 22 95/68 (77) 100 09/20/18 19:29 100 Nasal Cannula 2.0 28 09/20/18 19:28 76 24 100 Nasal Cannula 2.0 28 09/20/18 19:00 84 22 90/68 (75) 100 09/20/18 19:00 90/68 09/20/18 19:00 90/68 09/20/18 18:30 86 29 91/65 (74) 09/20/18 18:00 93/72 09/20/18 18:00 93/72 09/20/18 18:00 77 35 93/72 (79) 99 09/20/18 17:30 78 23 93/72 (79) 99 09/20/18 17:00 102/72 09/20/18 17:00 100/72 09/20/18 17:00 102 22 102/71 (81) 100 09/20/18 16:30 110 27 98/79 (85) 100 09/20/18 16:00 98.0 108 18 98/79 (85) 100 09/20/18 16:00 111 09/20/18 16:00 98/79 09/20/18 16:00 98/79 09/20/18 16:00 Nasal Cannula 2.0 09/20/18 15:40 93/74 09/20/18 15:40 93/74 09/20/18 15:40 93/74 09/20/18 15:40 93/74 09/20/18 15:39 113 09/20/18 15:30 112 25 93/74 (80) 100 09/20/18 15:20 118 Nasal Cannula 2.0 28 09/20/18 15:20 Nasal Cannula 2.0 28 09/20/18 15:00 112 19 92/75 (81) 99 09/20/18 15:00 92/75 09/20/18 15:00 92/75 09/20/18 14:30 109 23 89/74 (79) 100 09/20/18 14:00 112 20 90/73 (79) 100 09/20/18 14:00 92/75 09/20/18 14:00 90/73 09/20/18 13:52 90/73 09/20/18 13:30 107 20 90/73 (79) 100 09/20/18 13:00 87/71 09/20/18 13:00 87/71 09/20/18 13:00 110 21 87/71 (76) 100 09/20/18 12:30 111 28 94/71 (79) 97 09/20/18 12:00 98.5 111 41 111/82 (92) 100 09/20/18 12:00 97/74 09/20/18 12:00 111/82 09/20/18 12:00 108 09/20/18 12:00 Nasal Cannula 2.0 09/20/18 11:30 112 30 94/75 (81) 100 09/20/18 11:00 107 21 94/71 (79) 100 09/20/18 11:00 94/74 09/20/18 11:00 94/71 09/20/18 10:55 105 18 100 Nasal Cannula 2.0 28 09/20/18 10:46 113 18 100 Nasal Cannula 2.0 28 09/20/18 10:30 112 20 87/72 (77) 99 09/20/18 10:00 91/75 09/20/18 10:00 91/75 09/20/18 10:00 112 32 91/75 (80) 100 09/20/18 09:30 113 43 94/75 (81) 100 09/20/18 09:28 96/75 09/20/18 09:02 111 09/20/18 09:00 112 46 96/75 (82) 100 09/20/18 09:00 96/75 09/20/18 09:00 96/75 09/20/18 08:45 113 30 100/74 (83) 100 09/20/18 08:30 111 36 100/74 (83) 100 09/20/18 08:15 110 40 95/73 (80) 100 09/20/18 08:00 95/73 09/20/18 08:00 95/73 09/20/18 08:00 Nasal Cannula 2.0 09/20/18 08:00 111 09/20/18 08:00 97.5 106 43 95/73 (80) 100 09/20/18 07:45 106 25 87/70 (76) 100 09/20/18 07:45 87/70 09/20/18 07:30 110 42 87/70 (76) 99 09/20/18 07:00 104 28 88/68 (75) 100 09/20/18 06:46 100 Nasal Cannula 2.0 09/20/18 06:45 117 Nasal Cannula 2.0 09/20/18 06:45 Nasal Cannula 2.0 28 09/20/18 06:30 112 40 86/68 (74) 100 09/20/18 06:00 111 43 90/73 (79) 100 09/20/18 05:30 113 41 82/66 (71) 100 09/20/18 05:00 115 42 83/67 (72) 100 09/20/18 04:32 114 34 90/69 (76) 09/20/18 04:30 114 29 91/72 (78) 09/20/18 04:00 98.9 113 26 89/67 (74) 100 09/20/18 04:00 Venturi Mask 12.0 09/20/18 04:00 112 09/20/18 03:46 116 18 100 Nasal Cannula 2.0 28 09/20/18 03:38 110 18 100 Nasal Cannula 2.0 28 09/20/18 03:30 111 11 99/75 (83) 99 09/20/18 03:00 115 22 91/78 (82) 98 09/20/18 02:30 123 17 95/73 (80) 100 09/20/18 02:00 114 23 94/77 (83) 100 09/20/18 01:30 118 25 90/73 (79) 100 09/20/18 01:00 118 26 95/68 (77) 100 09/20/18 00:30 121 29 90/73 (79) 100 09/20/18 00:00 Venturi Mask 12.0 09/20/18 00:00 98.6 114 23 92/75 (81) 100 09/20/18 00:00 114 09/19/18 23:30 114 19 91/72 (78) 100 09/19/18 23:12 124 18 100 Nasal Cannula 2.0 28 09/19/18 23:01 112 20 99 Nasal Cannula 2.0 28 09/19/18 23:00 113 25 90/74 (79) 100 09/19/18 22:30 113 19 91/74 (80) 100 09/19/18 22:25 93/74 09/19/18 22:00 113 26 93/72 (79) 100 09/19/18 21:30 113 22 92/75 (81) 100 09/19/18 21:15 113 42 93/75 (81) 100 09/19/18 21:00 112 40 91/70 (77) 100 09/19/18 20:45 113 34 86/66 (73) 100 09/19/18 20:30 113 27 88/67 (74) 99 09/19/18 20:15 112 28 86/70 (75) 100 09/19/18 20:00 98.3 112 25 85/71 (76) 100 09/19/18 20:00 Venturi Mask 12.0 09/19/18 20:00 112 09/19/18 19:49 100 Nasal Cannula 2.0 28 09/19/18 19:45 112 36 88/69 (75) 100 09/19/18 19:42 112 18 100 Nasal Cannula 2.0 28 09/19/18 19:32 113 23 99 Nasal Cannula 2.0 28 09/19/18 19:30 112 32 88/71 (77) 100 09/19/18 19:00 117 32 100/79 (86) 98 09/19/18 19:00 85/71 09/19/18 19:00 85/71 09/19/18 18:42 87/71 09/19/18 18:41 87/71 09/19/18 18:30 113 25 91/73 (79) 99 09/19/18 18:30 112 28 87/71 (76) 99 09/19/18 18:00 112 25 81/65 (70) 99 09/19/18 18:00 90/73 09/19/18 18:00 90/73 09/19/18 18:00 112 25 90/65 (73) 100 09/19/18 17:30 130 25 90/73 (79) 95 09/19/18 17:30 90/73 09/19/18 17:00 139 27 94/74 (81) 98 09/19/18 17:00 90/73 09/19/18 17:00 95/71 09/19/18 16:45 139 28 95/71 (79) 98 09/19/18 16:45 94/74 09/19/18 16:30 118 30 95/74 (81) 99 09/19/18 16:30 95/71 09/19/18 16:15 93 27 107/90 (96) 100 09/19/18 16:15 95/74 09/19/18 16:07 87/70 09/19/18 16:07 87/70 09/19/18 16:00 100 09/19/18 16:00 97.6 99 31 87/70 (76) 100 09/19/18 16:00 99 31 87/70 (76) 100 09/19/18 16:00 107/90 09/19/18 16:00 Venturi Mask 12.0 09/19/18 15:30 98 33 92/77 (82) 99 09/19/18 15:00 84 21 101/73 (82) 100 09/19/18 15:00 82 19 100 Nasal Cannula 2.0 28 09/19/18 15:00 96/79 09/19/18 14:50 85 12 99 Nasal Cannula 2.0 28 09/19/18 14:30 82 34 89/68 (75) 98 09/19/18 14:00 91 23 93/74 (80) 96 09/19/18 14:00 93/74 09/19/18 13:30 91 22 98/75 (83) 96 09/19/18 13:15 86 23 95/76 (82) 93 09/19/18 13:00 83 23 92/73 (79) 95 09/19/18 13:00 92/73 09/19/18 12:30 97.6 80 21 88/62 (71) 98 09/19/18 12:00 Venturi Mask 12.0 09/19/18 12:00 89/63 09/19/18 12:00 75 19 89/63 (72) 98 09/19/18 11:30 77 17 89/68 (75) 100 09/19/18 11:23 71 13 100 Nasal Cannula 2.0 28 09/19/18 11:11 90 18 99 Venturi Mask 4.0 30 09/19/18 11:00 76 17 99/87 (91) 100 09/19/18 11:00 99/87 09/19/18 10:30 78 19 100/73 (82) 97 09/19/18 10:00 96/65 09/19/18 10:00 80 22 104/78 (87) 98 Intake and Output 09/20/18 09/21/18 18:59 06:59 Intake Total 2663.411 ml 2266.783 ml Output Total 560 ml 820 ml Balance 2103.411 ml 1446.783 ml Intake Free Water 50 ml 300 ml IV Total 1953.411 ml 1306.783 ml Tube Feeding 660 ml 660 ml Output Urine Total 560 ml 820 ml Labs Test 09/18/18 23:12 09/18/18 23:25 09/19/18 03:36 09/19/18 04:00 White Blood Count 7.0 K/UL (4.8-10.8) 7.5 K/UL (4.8-10.8) Red Blood Count 3.09 M/UL (4.70-6.10) 3.15 M/UL (4.70-6.10) Hemoglobin 10.4 G/DL (14.2-18.0) 10.6 G/DL (14.2-18.0) Hematocrit 32.8 % (42.0-52.0) 34.0 % (42.0-52.0) Mean Corpuscular Volume 106 FL (80-99) 108 FL (80-99) Mean Corpuscular Hemoglobin 33.7 PG (27.0-31.0) 33.5 PG (27.0-31.0) Mean Corpuscular Hemoglobin Concent 31.7 G/DL (32.0-36.0) 31.1 G/DL (32.0-36.0) Red Cell Distribution Width 16.0 % (11.6-14.8) 16.1 % (11.6-14.8) Platelet Count 159 K/UL (150-450) 174 K/UL (150-450) Mean Platelet Volume 9.0 FL (6.5-10.1) 8.8 FL (6.5-10.1) Neutrophils (%) (Auto) 63.5 % (45.0-75.0) 69.6 % (45.0-75.0) Lymphocytes (%) (Auto) 28.8 % (20.0-45.0) 21.3 % (20.0-45.0) Monocytes (%) (Auto) 5.8 % (1.0-10.0) 7.3 % (1.0-10.0) Eosinophils (%) (Auto) 0.6 % (0.0-3.0) 0.6 % (0.0-3.0) Basophils (%) (Auto) 1.4 % (0.0-2.0) 1.2 % (0.0-2.0) Sodium Level 142 MMOL/L (136-145) 145 MMOL/L (136-145) Potassium Level 4.4 MMOL/L (3.5-5.1) 4.0 MMOL/L (3.5-5.1) Chloride Level 108 MMOL/L (98-107) 111 MMOL/L (98-107) Carbon Dioxide Level 28 MMOL/L (21-32) 25 MMOL/L (21-32) Anion Gap 6 mmol/L (5-15) 9 mmol/L (5-15) Blood Urea Nitrogen 33 mg/dL (7-18) 33 mg/dL (7-18) Creatinine 1.2 MG/DL (0.55-1.30) 1.1 MG/DL (0.55-1.30) Estimat Glomerular Filtration Rate mL/min (>60) mL/min (>60) Glucose Level 89 MG/DL (74-106) 102 MG/DL (74-106) Lactic Acid Level 1.50 mmol/L (0.4-2.0) Calcium Level 9.0 MG/DL (8.5-10.1) 8.3 MG/DL (8.5-10.1) Total Bilirubin 1.5 MG/DL (0.2-1.0) 1.3 MG/DL (0.2-1.0) Direct Bilirubin 0.7 MG/DL (0.0-0.3) 0.7 MG/DL (0.0-0.3) Aspartate Amino Transf (AST/SGOT) 24 U/L (15-37) 17 U/L (15-37) Alanine Aminotransferase (ALT/SGPT) < 6 U/L (12-78) 6 U/L (12-78) Alkaline Phosphatase 88 U/L (46-116) 69 U/L (46-116) Creatine Kinase MB 0.9 NG/ML (0.0-3.6) Troponin I 0.124 ng/mL (0.000-0.056) Pro-B-Type Natriuretic Peptide > 67079 pg/mL (0-125) Total Protein 7.5 G/DL (6.4-8.2) 6.3 G/DL (6.4-8.2) Albumin 2.6 G/DL (3.4-5.0) 2.2 G/DL (3.4-5.0) Globulin 4.9 g/dL Albumin/Globulin Ratio 0.5 (1.0-2.7) Urine Color Yellow Urine Appearance Clear Urine pH 5 (4.5-8.0) Urine Specific [place] 1.010 (1.005-1.035) Urine Protein Negative (NEGATIVE) Urine Glucose (UA) Negative (NEGATIVE) Urine Ketones Negative (NEGATIVE) Urine Blood Negative (NEGATIVE) Urine Nitrite Negative (NEGATIVE) Urine Bilirubin Negative (NEGATIVE) Urine Urobilinogen 1 MG/DL (0.0-1.0) Urine Leukocyte Esterase 1+ (NEGATIVE) Urine RBC 0-2 /HPF (0 - 0) Urine WBC 0-2 /HPF (0 - 0) Urine Squamous Epithelial Cells None /LPF (NONE/OCC) Urine Bacteria Few /HPF (NONE) Arterial Blood pH 7.338 (7.350-7.450) Arterial Blood Partial Pressure CO2 45.5 mmHg (35.0-45.0) Arterial Blood Partial Pressure O2 175.2 mmHg (75.0-100.0) Arterial Blood HCO3 23.9 mmol/L (22.0-26.0) Arterial Blood Oxygen Saturation 98.8 % (95-100) Arterial Blood Base Excess -2.0 (-2-2) Asad Test Positive Prothrombin Time 12.0 SEC (9.30-11.50) Prothromb Time International Ratio 1.1 (0.9-1.1) Activated Partial Thromboplast Time 38 SEC (23-33) Phosphorus Level 2.9 MG/DL (2.5-4.9) Magnesium Level 1.7 MG/DL (1.8-2.4) Test 09/19/18 09:00 09/19/18 10:15 09/19/18 13:30 09/20/18 04:00 Arterial Blood pH 7.381 (7.350-7.450) Arterial Blood Partial Pressure CO2 39.7 mmHg (35.0-45.0) Arterial Blood Partial Pressure O2 155.2 mmHg (75.0-100.0) Arterial Blood HCO3 23.0 mmol/L (22.0-26.0) Arterial Blood Oxygen Saturation 98.7 % (95-100) Arterial Blood Base Excess -1.9 (-2-2) Asad Test Positive Activated Partial Thromboplast Time 87 SEC (23-33) 87 SEC (23-33) Troponin I 0.114 ng/mL (0.000-0.056) Prealbumin 6 mg/dL (9-32) Digoxin Level 0.5 NG/ML (0.5-2.0) Urine Eosinophils None seen (NONE SEEN) Urine Random Total Protein 34 MG/DL (< 11.9) Urine Random Sodium 51 mmol/L (20-110) Urine Creatinine 69.1 MG/DL (30.0-125.0) White Blood Count 7.4 K/UL (4.8-10.8) Red Blood Count 3.06 M/UL (4.70-6.10) Hemoglobin 10.2 G/DL (14.2-18.0) Hematocrit 32.8 % (42.0-52.0) Mean Corpuscular Volume 107 FL (80-99) Mean Corpuscular Hemoglobin 33.4 PG (27.0-31.0) Mean Corpuscular Hemoglobin Concent 31.2 G/DL (32.0-36.0) Red Cell Distribution Width 15.3 % (11.6-14.8) Platelet Count 143 K/UL (150-450) Mean Platelet Volume 9.4 FL (6.5-10.1) Neutrophils (%) (Auto) 76.0 % (45.0-75.0) Lymphocytes (%) (Auto) 14.4 % (20.0-45.0) Monocytes (%) (Auto) 7.0 % (1.0-10.0) Eosinophils (%) (Auto) 1.5 % (0.0-3.0) Basophils (%) (Auto) 1.1 % (0.0-2.0) Sodium Level 140 MMOL/L (136-145) Potassium Level 3.5 MMOL/L (3.5-5.1) Chloride Level 107 MMOL/L (98-107) Carbon Dioxide Level 26 MMOL/L (21-32) Anion Gap 8 mmol/L (5-15) Blood Urea Nitrogen 25 mg/dL (7-18) Creatinine 1.1 MG/DL (0.55-1.30) Estimat Glomerular Filtration Rate mL/min (>60) Glucose Level 197 MG/DL (74-106) Calcium Level 7.9 MG/DL (8.5-10.1) Phosphorus Level 2.9 MG/DL (2.5-4.9) Magnesium Level 1.7 MG/DL (1.8-2.4) Total Bilirubin 1.3 MG/DL (0.2-1.0) Direct Bilirubin 0.6 MG/DL (0.0-0.3) Aspartate Amino Transf (AST/SGOT) 16 U/L (15-37) Alanine Aminotransferase (ALT/SGPT) < 6 U/L (12-78) Alkaline Phosphatase 57 U/L (46-116) Total Protein 5.8 G/DL (6.4-8.2) Albumin 2.0 G/DL (3.4-5.0) Globulin 3.8 g/dL Albumin/Globulin Ratio 0.5 (1.0-2.7) Vitamin B12 Level 496 PG/ML (193-986) Folate 2.5 NG/ML (8.6-58.9) Test 09/21/18 04:25 White Blood Count 6.9 K/UL (4.8-10.8) Red Blood Count 3.16 M/UL (4.70-6.10) Hemoglobin 10.7 G/DL (14.2-18.0) Hematocrit 33.4 % (42.0-52.0) Mean Corpuscular Volume 106 FL (80-99) Mean Corpuscular Hemoglobin 33.9 PG (27.0-31.0) Mean Corpuscular Hemoglobin Concent 32.1 G/DL (32.0-36.0) Red Cell Distribution Width 14.5 % (11.6-14.8) Platelet Count 140 K/UL (150-450) Mean Platelet Volume 9.6 FL (6.5-10.1) Neutrophils (%) (Auto) 76.4 % (45.0-75.0) Lymphocytes (%) (Auto) 13.7 % (20.0-45.0) Monocytes (%) (Auto) 7.0 % (1.0-10.0) Eosinophils (%) (Auto) 1.9 % (0.0-3.0) Basophils (%) (Auto) 1.0 % (0.0-2.0) Activated Partial Thromboplast Time 108 SEC (23-33) Sodium Level 137 MMOL/L (136-145) Potassium Level 3.4 MMOL/L (3.5-5.1) Chloride Level 107 MMOL/L (98-107) Carbon Dioxide Level 24 MMOL/L (21-32) Anion Gap 6 mmol/L (5-15) Blood Urea Nitrogen 21 mg/dL (7-18) Creatinine 1.0 MG/DL (0.55-1.30) Estimat Glomerular Filtration Rate mL/min (>60) Glucose Level 171 MG/DL (74-106) Calcium Level 7.5 MG/DL (8.5-10.1) Phosphorus Level 2.6 MG/DL (2.5-4.9) Magnesium Level 2.0 MG/DL (1.8-2.4) Total Bilirubin 1.1 MG/DL (0.2-1.0) Direct Bilirubin 0.6 MG/DL (0.0-0.3) Aspartate Amino Transf (AST/SGOT) 15 U/L (15-37) Alanine Aminotransferase (ALT/SGPT) < 6 U/L (12-78) Alkaline Phosphatase 57 U/L (46-116) Total Protein 6.0 G/DL (6.4-8.2) Albumin 2.0 G/DL (3.4-5.0) Digoxin Level 1.6 NG/ML (0.5-2.0) Height (Feet): 5 Height (Inches): 8.00 Weight (Pounds): 130 Objective HEENT: + Face Mask LUNGS: Coarse rhonchi b/l CV: Irregular. S1 and S2 with no gallop or murmur. ABD: Soft, + PEG in place EXT: No pitting edema. Bruce Loya MD Sep 21, 2018 09:44
--- NOTE | 2018-09-21 10:18 | Infectious Diseases Prog Note ---
Assessment/Plan Assessment/Plan A; Bacteremia Sepsis/ SIRS Cardiogenic shock Aortic stenosis Atrial flutter HPN Anemia P: Continue Zosyn & Vancomycin will f/u cultures Subjective ROS Limited/Unobtainable: Yes Constitutional: Reports: no symptoms Cardiovascular: Reports: other - hypotensive on Levophed, Dopamin, Dobutamin Gastrointestinal/Abdominal: Reports: no symptoms Genitourinary: Reports: no symptoms Allergies: Coded Allergies: No Known Allergies (Unverified , 01/07/18) Objective Vital Signs Last 24 Hour Vital Signs Date Time Temp Pulse Resp B/P (MAP) Pulse Ox O2 Delivery O2 Flow Rate FiO2 09/21/18 08:37 98.8 09/21/18 08:08 108 09/21/18 07:30 107 25 101/82 (88) 99 09/21/18 07:00 105 26 98/79 (85) 100 09/21/18 06:55 98 24 100 Nasal Cannula 2.0 28 09/21/18 06:48 100 Nasal Cannula 2.0 28 09/21/18 06:47 93 28 100 Nasal Cannula 2.0 28 09/21/18 06:30 99 27 99/76 (84) 98 09/21/18 06:00 107 27 97/73 (81) 99 09/21/18 05:30 97 25 98/81 (87) 100 09/21/18 05:00 102 29 96/81 (86) 100 09/21/18 04:30 104 25 94/63 (73) 100 09/21/18 04:02 67/47 09/21/18 04:01 97/98 09/21/18 04:00 98.6 109 21 86/72 (77) 100 09/21/18 04:00 Nasal Cannula 2.0 09/21/18 04:00 100 09/21/18 03:30 111 22 97/68 (78) 98 09/21/18 03:25 111 20 100 Nasal Cannula 2.0 28 09/21/18 03:15 93 19 98 Nasal Cannula 2.0 28 09/21/18 03:00 101 26 99/72 (81) 97 09/21/18 02:30 92 23 106/76 (86) 100 09/21/18 02:00 84 20 91/65 (74) 100 09/21/18 01:30 85 22 91/76 (81) 100 09/21/18 01:03 94 22 100 Nasal Cannula 2.0 28 09/21/18 01:00 90 22 95/76 (82) 100 09/21/18 00:49 94 19 100 Nasal Cannula 2.0 28 09/21/18 00:30 84 24 100/77 (85) 100 09/21/18 00:07 83 09/21/18 00:00 82 09/21/18 00:00 98.5 85 20 101/69 (80) 100 09/21/18 00:00 Nasal Cannula 2.0 09/20/18 23:39 81 38 87/64 (72) 100 09/20/18 23:30 69 40 76/60 (65) 100 09/20/18 23:00 94/72 09/20/18 23:00 102 32 94/73 (80) 100 09/20/18 22:30 98 28 91/72 (78) 100 09/20/18 22:00 110 25 92/74 (80) 100 09/20/18 21:30 109 39 95/72 (80) 100 09/20/18 21:00 108 33 97/72 (80) 100 09/20/18 20:30 83 17 88/66 (73) 100 09/20/18 20:00 84 09/20/18 20:00 98.6 86 32 83/67 (72) 99 09/20/18 20:00 Nasal Cannula 2.0 09/20/18 19:38 84 18 100 Nasal Cannula 2.0 28 09/20/18 19:30 79 22 95/68 (77) 100 09/20/18 19:29 100 Nasal Cannula 2.0 28 09/20/18 19:28 76 24 100 Nasal Cannula 2.0 28 09/20/18 19:00 84 22 90/68 (75) 100 09/20/18 19:00 90/68 09/20/18 19:00 90/68 09/20/18 18:30 86 29 91/65 (74) 09/20/18 18:00 93/72 09/20/18 18:00 93/72 09/20/18 18:00 77 35 93/72 (79) 99 09/20/18 17:30 78 23 93/72 (79) 99 09/20/18 17:00 102/72 09/20/18 17:00 100/72 09/20/18 17:00 102 22 102/71 (81) 100 09/20/18 16:30 110 27 98/79 (85) 100 09/20/18 16:00 98.0 108 18 98/79 (85) 100 09/20/18 16:00 111 09/20/18 16:00 98/79 09/20/18 16:00 98/79 09/20/18 16:00 Nasal Cannula 2.0 09/20/18 15:40 93/74 09/20/18 15:40 93/74 09/20/18 15:40 93/74 09/20/18 15:40 93/74 09/20/18 15:39 113 09/20/18 15:30 112 25 93/74 (80) 100 09/20/18 15:20 118 Nasal Cannula 2.0 28 09/20/18 15:20 Nasal Cannula 2.0 28 09/20/18 15:00 112 19 92/75 (81) 99 09/20/18 15:00 92/75 09/20/18 15:00 92/75 09/20/18 14:30 109 23 89/74 (79) 100 09/20/18 14:00 112 20 90/73 (79) 100 09/20/18 14:00 92/75 09/20/18 14:00 90/73 09/20/18 13:52 90/73 09/20/18 13:30 107 20 90/73 (79) 100 09/20/18 13:00 87/71 09/20/18 13:00 87/71 09/20/18 13:00 110 21 87/71 (76) 100 09/20/18 12:30 111 28 94/71 (79) 97 09/20/18 12:00 98.5 111 41 111/82 (92) 100 09/20/18 12:00 97/74 09/20/18 12:00 111/82 09/20/18 12:00 108 09/20/18 12:00 Nasal Cannula 2.0 09/20/18 11:30 112 30 94/75 (81) 100 09/20/18 11:00 107 21 94/71 (79) 100 09/20/18 11:00 94/74 09/20/18 11:00 94/71 09/20/18 10:55 105 18 100 Nasal Cannula 2.0 28 09/20/18 10:46 113 18 100 Nasal Cannula 2.0 28 09/20/18 10:30 112 20 87/72 (77) 99 Height (Feet): 5 Height (Inches): 8.00 Weight (Pounds): 130 HEENT: mucous membranes moist Respiratory/Chest: lungs clear Cardiovascular: tachycardia, irregularly irregular, other - Left IJ central line Abdomen: soft, non tender, other - GT feeding Genitourinary: other - Chin catheter Extremities: other - edema Skin: ulcers Neurologic/Psychiatric: alert, responsive Microbiology Date/Time Source Procedure Growth Status 09/18/18 23:27 Blood Blood Culture - Preliminary Staphylococcus Species Resulted 09/18/18 23:12 Blood Blood Culture - Preliminary NO GROWTH AFTER 48 HOURS Resulted 09/18/18 23:15 Nasal Nares MRSA Culture - Final NO METHICILLIN RESISTANT STAPH AUREUS... Complete 09/18/18 23:15 Rectum - Final NO CARBAPENEM-RESISTANT ENTEROBACTERI... Complete 09/18/18 23:15 Rectum VRE Culture - Final NO VANCOMYCIN RESISTANT ENTEROCOCCUS ... Complete Laboratory Tests Test 09/21/18 04:25 White Blood Count 6.9 K/UL (4.8-10.8) Red Blood Count 3.16 M/UL (4.70-6.10) L Hemoglobin 10.7 G/DL (14.2-18.0) L Hematocrit 33.4 % (42.0-52.0) L Mean Corpuscular Volume 106 FL (80-99) H Mean Corpuscular Hemoglobin 33.9 PG (27.0-31.0) H Mean Corpuscular Hemoglobin Concent 32.1 G/DL (32.0-36.0) Red Cell Distribution Width 14.5 % (11.6-14.8) Platelet Count 140 K/UL (150-450) L Mean Platelet Volume 9.6 FL (6.5-10.1) Neutrophils (%) (Auto) 76.4 % (45.0-75.0) H Lymphocytes (%) (Auto) 13.7 % (20.0-45.0) L Monocytes (%) (Auto) 7.0 % (1.0-10.0) Eosinophils (%) (Auto) 1.9 % (0.0-3.0) Basophils (%) (Auto) 1.0 % (0.0-2.0) Activated Partial Thromboplast Time 108 SEC (23-33) H Sodium Level 137 MMOL/L (136-145) Potassium Level 3.4 MMOL/L (3.5-5.1) L Chloride Level 107 MMOL/L (98-107) Carbon Dioxide Level 24 MMOL/L (21-32) Anion Gap 6 mmol/L (5-15) Blood Urea Nitrogen 21 mg/dL (7-18) H Creatinine 1.0 MG/DL (0.55-1.30) Estimat Glomerular Filtration Rate mL/min (>60) Glucose Level 171 MG/DL (74-106) H Calcium Level 7.5 MG/DL (8.5-10.1) L Phosphorus Level 2.6 MG/DL (2.5-4.9) Magnesium Level 2.0 MG/DL (1.8-2.4) Total Bilirubin 1.1 MG/DL (0.2-1.0) H Direct Bilirubin 0.6 MG/DL (0.0-0.3) H Aspartate Amino Transf (AST/SGOT) 15 U/L (15-37) Alanine Aminotransferase (ALT/SGPT) < 6 U/L (12-78) L Alkaline Phosphatase 57 U/L (46-116) Total Protein 6.0 G/DL (6.4-8.2) L Albumin 2.0 G/DL (3.4-5.0) L Digoxin Level 1.6 NG/ML (0.5-2.0) Current Medications Medications (Trade) Dose Ordered Sig/Fritz Route PRN Reason Start Time Stop Time Status Last Admin Dose Admin Acetaminophen (Tylenol) 650 mg Q6H PRN GT Mild Pain/Temp > 100.5 09/19/18 03:45 10/19/18 03:44 09/21/18 08:07 Albuterol/ Ipratropium (Albuterol/ Ipratropium) 3 ml Q4H PRN HHN Shortness of Breath 09/19/18 03:30 09/24/18 03:29 Albuterol/ Ipratropium (Albuterol/ Ipratropium) 3 ml Q4HRT HHN 09/19/18 11:00 09/24/18 10:59 09/21/18 06:47 Aspirin (ASA) 81 mg DAILY GT 09/19/18 09:00 10/19/18 08:59 09/21/18 08:08 Chlorhexidine Gluconate (Nadeen-Hex 2%) 1 applic DAILY@2000 TOPIC 09/19/18 20:00 10/19/18 19:59 09/20/18 20:28 Dextrose/Sodium Chloride 1,000 ml @ 60 mls/hr [id number] IV 09/19/18 09:45 10/19/18 09:44 09/20/18 19:18 Digoxin (Lanoxin) 0.125 mg DAILY PEG 09/20/18 09:00 10/20/18 08:59 09/21/18 08:08 Dobutamine HCl 250 ml @ 10.497 mls/ hr Q24H IV 09/20/18 16:00 10/19/18 15:59 09/21/18 04:02 Dopamine HCl/ Dextrose 250 ml @ 6.56 mls/hr Q24H IV 09/20/18 16:00 10/19/18 15:59 09/20/18 23:00 Furosemide (Lasix) 20 mg DAILY GT 09/19/18 09:00 10/19/18 08:59 09/21/18 08:22 Heparin Sodium/ Dextrose 500 ml @ 17.58 mls/ hr ADJUST PER PROTOCOL IV 09/21/18 07:15 10/21/18 05:39 09/21/18 08:05 Norepinephrine Bitartrate 8 mg/ Dextrose 254 ml @ 0 mls/hr Q24H IV 09/19/18 03:30 10/19/18 03:29 09/21/18 04:01 Ondansetron HCl (Zofran) 4 mg Q4H PRN IVP Nausea & Vomiting 09/19/18 04:15 10/19/18 04:14 Pantoprazole (Protonix) 40 mg DAILY IVP 09/19/18 09:00 10/19/18 08:59 09/21/18 08:09 Piperacillin Sod/ Tazobactam Sod 4.5 gm/Sodium Chloride 110 ml @ 27.5 mls/hr Q8HR IVPB 09/19/18 06:00 09/26/18 05:59 09/21/18 06:11 Potassium Chloride 100 ml @ 50 mls/hr ONCE ONCE IVPB 09/21/18 09:00 09/21/18 10:59 09/21/18 09:50 Potassium Chloride 100 ml @ 50 mls/hr ONCE ONCE IVPB 09/21/18 11:00 09/21/18 12:59 Vancomycin HCl (Vanco rx to dose) 1 ea DAILY PRN MISC Per rx protocol 09/19/18 03:30 10/19/18 03:29 Vancomycin HCl/ Dextrose 275 ml @ 183.333 mls/hr Q24H IVPB 09/21/18 08:30 09/26/18 08:29 09/21/18 08:07 Alexis Rivera MD Sep 21, 2018 10:18
[2018-09-21] MEDS: D5NS 1,000 ML IV SCH (10:55)
--- NOTE | 2018-09-21 13:10 | Nephrology Progress Note ---
Assessment/Plan Assessment 1. Prerenal azotemia and dehydration. 2. Hypocalcemia. 3. Hypomagnesemia. 4. Possible failure to thrive, low albumin and low total protein. Pre-albumin level needs to be checked. 5. Possible pneumonia. Plan d/c ivf replace k monitoring renal function avoid NSAID replace electrolyte Subjective Subjective continue to be in icu alert and awake provide appropriate answer t my question no complaints Objective Objective Last 24 Hour Vital Signs Date Time Temp Pulse Resp B/P (MAP) Pulse Ox O2 Delivery O2 Flow Rate FiO2 09/21/18 12:30 115 20 117/97 (104) 98 09/21/18 12:00 96 09/21/18 12:00 97.8 120 20 94/78 (83) 100 09/21/18 12:00 Nasal Cannula 2.0 09/21/18 11:30 99 22 95/80 (85) 98 09/21/18 11:00 98 22 93/74 (80) 98 09/21/18 10:48 97 21 100 Nasal Cannula 1.0 09/21/18 10:47 98 21 100 Nasal Cannula 1.0 24 09/21/18 10:30 98 40 94/73 (80) 98 09/21/18 10:00 104 36 96/75 (82) 98 09/21/18 09:30 94 52 99/71 (80) 98 09/21/18 09:00 105 51 93/74 (80) 97 09/21/18 08:37 98.8 09/21/18 08:30 106 22 96/76 (83) 100 09/21/18 08:08 108 09/21/18 08:00 98.8 106 25 98/73 (81) 99 09/21/18 08:00 107 09/21/18 08:00 Nasal Cannula 2.0 09/21/18 07:30 107 25 101/82 (88) 99 09/21/18 07:00 105 26 98/79 (85) 100 09/21/18 06:55 98 24 100 Nasal Cannula 2.0 28 09/21/18 06:48 100 Nasal Cannula 2.0 28 09/21/18 06:47 93 28 100 Nasal Cannula 2.0 28 09/21/18 06:30 99 27 99/76 (84) 98 09/21/18 06:00 107 27 97/73 (81) 99 09/21/18 05:30 97 25 98/81 (87) 100 09/21/18 05:00 102 29 96/81 (86) 100 09/21/18 04:30 104 25 94/63 (73) 100 09/21/18 04:02 67/47 09/21/18 04:01 97/98 09/21/18 04:00 98.6 109 21 86/72 (77) 100 09/21/18 04:00 Nasal Cannula 2.0 09/21/18 04:00 100 09/21/18 03:30 111 22 97/68 (78) 98 09/21/18 03:25 111 20 100 Nasal Cannula 2.0 28 09/21/18 03:15 93 19 98 Nasal Cannula 2.0 28 09/21/18 03:00 101 26 99/72 (81) 97 09/21/18 02:30 92 23 106/76 (86) 100 09/21/18 02:00 84 20 91/65 (74) 100 09/21/18 01:30 85 22 91/76 (81) 100 09/21/18 01:03 94 22 100 Nasal Cannula 2.0 28 09/21/18 01:00 90 22 95/76 (82) 100 09/21/18 00:49 94 19 100 Nasal Cannula 2.0 28 09/21/18 00:30 84 24 100/77 (85) 100 09/21/18 00:07 83 09/21/18 00:00 82 09/21/18 00:00 98.5 85 20 101/69 (80) 100 09/21/18 00:00 Nasal Cannula 2.0 09/20/18 23:39 81 38 87/64 (72) 100 09/20/18 23:30 69 40 76/60 (65) 100 09/20/18 23:00 94/72 09/20/18 23:00 102 32 94/73 (80) 100 09/20/18 22:30 98 28 91/72 (78) 100 09/20/18 22:00 110 25 92/74 (80) 100 09/20/18 21:30 109 39 95/72 (80) 100 09/20/18 21:00 108 33 97/72 (80) 100 09/20/18 20:30 83 17 88/66 (73) 100 09/20/18 20:00 84 09/20/18 20:00 98.6 86 32 83/67 (72) 99 09/20/18 20:00 Nasal Cannula 2.0 09/20/18 19:38 84 18 100 Nasal Cannula 2.0 28 09/20/18 19:30 79 22 95/68 (77) 100 09/20/18 19:29 100 Nasal Cannula 2.0 28 09/20/18 19:28 76 24 100 Nasal Cannula 2.0 28 09/20/18 19:00 84 22 90/68 (75) 100 09/20/18 19:00 90/68 09/20/18 19:00 90/09/20/18 18:30 86 29 91/65 (74) 09/20/18 18:00 93/72 09/20/18 18:00 93/72 09/20/18 18:00 77 35 93/72 (79) 99 09/20/18 17:30 78 23 93/72 (79) 99 09/20/18 17:00 102/72 09/20/18 17:00 100/72 09/20/18 17:00 102 22 102/71 (81) 100 09/20/18 16:30 110 27 98/79 (85) 100 09/20/18 16:00 98.0 108 18 98/79 (85) 100 09/20/18 16:00 111 09/20/18 16:00 98/79 09/20/18 16:00 98/79 09/20/18 16:00 Nasal Cannula 2.0 09/20/18 15:40 93/74 09/20/18 15:40 93/74 09/20/18 15:40 93/74 09/20/18 15:40 93/74 09/20/18 15:39 113 09/20/18 15:30 112 25 93/74 (80) 100 09/20/18 15:20 118 Nasal Cannula 2.0 28 09/20/18 15:20 Nasal Cannula 2.0 28 09/20/18 15:00 112 19 92/75 (81) 99 09/20/18 15:00 92/75 09/20/18 15:00 92/75 09/20/18 14:30 109 23 89/74 (79) 100 09/20/18 14:00 112 20 90/73 (79) 100 09/20/18 14:00 92/75 09/20/18 14:00 90/73 09/20/18 13:52 90/09/20/18 13:30 107 20 90/ (79) 100 Intake and Output 09/20/18 09/21/18 19:00 07:00 Intake Total 2761.541 ml 2022.080 ml Output Total 560 ml 820 ml Balance 2201.541 ml 1202.080 ml Intake Free Water 150 ml 200 ml IV Total 1951.541 ml 1162.080 ml Tube Feeding 660 ml 660 ml Output Urine Total 560 ml 820 ml Laboratory Tests 09/21/18 04:25: White Blood Count 6.9, Red Blood Count 3.16L, Hemoglobin 10.7L, Hematocrit 33.4L , Mean Corpuscular Volume 106H, Mean Corpuscular Hemoglobin 33.9H, Mean Corpuscular Hemoglobin Concent 32.1, Red Cell Distribution Width 14.5, Platelet Count 140L, Mean Platelet Volume 9.6, Neutrophils (%) (Auto) 76.4H, Lymphocytes (%) (Auto) 13.7L, Monocytes (%) (Auto) 7.0, Eosinophils (%) (Auto) 1.9, Basophils (%) (Auto) 1.0, Activated Partial Thromboplast Time 108H, Sodium Level 137, Potassium Level 3.4L, Chloride Level 107, Carbon Dioxide Level 24, Anion Gap 6, Blood Urea Nitrogen 21H, Creatinine 1.0, Estimat Glomerular Filtration Rate , Glucose Level 171H, Calcium Level 7.5L, Phosphorus Level 2.6, Magnesium Level 2.0, Total Bilirubin 1.1H, Direct Bilirubin 0.6H, Aspartate Amino Transf (AST/SGOT) 15, Alanine Aminotransferase (ALT/SGPT) < 6L, Alkaline Phosphatase 57, Total Protein 6.0L, Albumin 2.0L, Digoxin Level 1.6 09/21/18 11:45: Activated Partial Thromboplast Time 71H Height (Feet): 5 Height (Inches): 8.00 Weight (Pounds): 130 Objective HEAD AND NECK: No JVP. No LAD. No thyromegaly. Bitemporal wasting. Mucous membranes are dry. LUNGS: Bilateral rhonchi. CARDIAC: Regular rate and rhythm. S1 and S2. No murmur. No rub. ABDOMEN: Soft, nontender, and nondistended. EXTREMITIES: No edema. No clubbing. No cyanosis. Tiffanie Huber MD Sep 21, 2018 13:10
--- NOTE | 2018-09-21 13:45 | Pulmonolgy Critical Care Note ---
Critical Care - Asmt/Plan Assessment/Plan: Pulmonary CCM Progress Note HPI Patient is a 77-year-old male recently discharged from the hospital, s/p G-tube for Failure to thrive, has a history of atrial fibrillation/DVT on Eliquis, CHF with EF 20%, CAD with previous NSTEMI, Aortic stenosis, Mitral Regurgitation, Chronic anemia, thromocytopenia, previous admissions for pneumonia, presents from nursing facility for altered mental status and hypotension, decubitus ulcers, recent positive blood culture with staph simulans. At the shelter was noted to have blood pressure in the mid 70s, was confused, oriented to self only. There is no report of trauma. The patient has no complaints at this time but is oriented to self only cannot provide any significant history. On pressors prn, on heparin gtt PMH: Failure to thrive, has a history of atrial fibrillation/DVT on Eliquis, CHF with EF 20%, CAD with previous NSTEMI, Aortic stenosis, Mitral Regurgitation , Hypertension, Chronic anemia, thromocytopenia, previous admissions for pneumonia, thrombocytopenia presents from nursing facility for altered mental status and hypotension, decubitus ulcers, recent positive blood culture with staph simulans Allergies: No documented allergies Allergies: No Known Allergies All Other Systems: limited - Due to altered mental status on presentation Physical Exam Vital Signs Noted Date Time Temp Pulse Resp B/P (MAP) Pulse Ox O2 Delivery O2 Flow Rate FiO2 09/18/18 23:01 98.6 82 20 116/62 (80) 96 Room Air On Levophed General: Chronically ill, wasted, no acute distress,RIJ line HEENT: NC/AT. EOMI. PERRLA, pupils equal and reactive bilaterally. No obvious facial trauma. Dry mucous membranes Neck: Supple, trachea midline Chest Wall: No tenderness, no deformity Cardiovascular: Irregularly irregular rhythm, regular rate, HS1, HS2, ESM Resp: Normal work of breathing. CTAB Abdomen: Abdomen is soft, nondistended. Nontender Skin: Multiple ulcers over the back and buttock n MSK: Appears frail and somewhat cachectic. Moving all extremities though diminished strength in all limbs Neuro: Awake, confused, oriented to self only. No focal signs, no seizures EKG: Rate: normal Rhythm: other - Atrial fibrillation ST Segments: no acute changes CXR: Interim placement right jugular central venous catheter, tip of which projects at the level of the high right atrium. Again demonstrated is bilateral interstitial and airspace edema, bilateral pleural effusions, and cardiomegaly. There is no evidence of pneumothorax. CT Head: No acute intracranial findings. Atrophy. Chronic-appearing ischemic changes and encephalomalacia. 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, CHF with EF 20% CAD with previous NSTEMI - currently elevated Troponin Aortic stenosis, Mitral Regurgitation H/o hypertension Chronic anemia, thromocytopenia Previous admissions for pneumonia Plan IV Antibiotics Levophed Aspiration Precautions Heparin gtt - hold NOACS for now Consider thoracentesis once more stable ASA BiPAP PRN Duonebs PRN/CPT Lasix PRN Monitor Glucose Monitor labs PPX Critical Care - Objective Last 24 Hour Vital Signs Date Time Temp Pulse Resp B/P (MAP) Pulse Ox O2 Delivery O2 Flow Rate FiO2 09/21/18 12:30 115 20 117/97 (104) 98 09/21/18 12:00 96 09/21/18 12:00 97.8 120 20 94/78 (83) 100 09/21/18 12:00 Nasal Cannula 2.0 09/21/18 11:30 99 22 95/80 (85) 98 09/21/18 11:00 98 22 93/74 (80) 98 09/21/18 10:48 97 21 100 Nasal Cannula 1.0 24 09/21/18 10:47 98 21 100 Nasal Cannula 1.0 24 09/21/18 10:30 98 40 94/73 (80) 98 09/21/18 10:00 104 36 96/75 (82) 98 09/21/18 09:30 94 52 99/71 (80) 98 09/21/18 09:00 105 51 93/74 (80) 97 09/21/18 08:37 98.8 09/21/18 08:30 106 22 96/76 (83) 100 09/21/18 08:08 108 09/21/18 08:00 98.8 106 25 98/73 (81) 99 09/21/18 08:00 107 09/21/18 08:00 Nasal Cannula 2.0 09/21/18 07:30 107 25 101/82 (88) 99 09/21/18 07:00 105 26 98/79 (85) 100 09/21/18 06:55 98 24 100 Nasal Cannula 2.0 28 09/21/18 06:48 100 Nasal Cannula 2.0 28 09/21/18 06:47 93 28 100 Nasal Cannula 2.0 28 09/21/18 06:30 99 27 99/76 (84) 98 09/21/18 06:00 107 27 97/73 (81) 99 09/21/18 05:30 97 25 98/81 (87) 100 09/21/18 05:00 102 29 96/81 (86) 100 09/21/18 04:30 104 25 94/63 (73) 100 09/21/18 04:02 67/47 09/21/18 04:01 97/98 09/21/18 04:00 98.6 109 21 86/72 (77) 100 09/21/18 04:00 Nasal Cannula 2.0 09/21/18 04:00 100 09/21/18 03:30 111 22 97/68 (78) 98 09/21/18 03:25 111 20 100 Nasal Cannula 2.0 28 09/21/18 03:15 93 19 98 Nasal Cannula 2.0 28 09/21/18 03:00 101 26 99/72 (81) 97 09/21/18 02:30 92 23 106/76 (86) 100 09/21/18 02:00 84 20 91/65 (74) 100 09/21/18 01:30 85 22 91/76 (81) 100 09/21/18 01:03 94 22 100 Nasal Cannula 2.0 28 09/21/18 01:00 90 22 95/76 (82) 100 09/21/18 00:49 94 19 100 Nasal Cannula 2.0 28 09/21/18 00:30 84 24 100/77 (85) 100 09/21/18 00:07 83 09/21/18 00:00 82 09/21/18 00:00 98.5 85 20 101/69 (80) 100 09/21/18 00:00 Nasal Cannula 2.0 09/20/18 23:39 81 38 87/64 (72) 100 09/20/18 23:30 69 40 76/60 (65) 100 09/20/18 23:00 94/72 09/20/18 23:00 102 32 94/73 (80) 100 09/20/18 22:30 98 28 91/72 (78) 100 09/20/18 22:00 110 25 92/74 (80) 100 09/20/18 21:30 109 39 95/72 (80) 100 09/20/18 21:00 108 33 97/72 (80) 100 09/20/18 20:30 83 17 88/66 (73) 100 09/20/18 20:00 84 09/20/18 20:00 98.6 86 32 83/67 (72) 99 09/20/18 20:00 Nasal Cannula 2.0 09/20/18 19:38 84 18 100 Nasal Cannula 2.0 28 09/20/18 19:30 79 22 95/68 (77) 100 09/20/18 19:29 100 Nasal Cannula 2.0 28 09/20/18 19:28 76 24 100 Nasal Cannula 2.0 28 09/20/18 19:00 84 22 90/68 (75) 100 09/20/18 19:00 90/68 09/20/18 19:00 90/68 09/20/18 18:30 86 29 91/65 (74) 09/20/18 18:00 93/72 09/20/18 18:00 93/72 09/20/18 18:00 77 35 93/72 (79) 99 09/20/18 17:30 78 23 93/72 (79) 99 09/20/18 17:00 102/72 09/20/18 17:00 100/72 09/20/18 17:00 102 22 102/71 (81) 100 09/20/18 16:30 110 27 98/79 (85) 100 09/20/18 16:00 98.0 108 18 98/79 (85) 100 09/20/18 16:00 111 09/20/18 16:00 98/79 09/20/18 16:00 98/79 09/20/18 16:00 Nasal Cannula 2.0 09/20/18 15:40 93/74 09/20/18 15:40 93/74 09/20/18 15:40 93/74 09/20/18 15:40 93/74 09/20/18 15:39 113 09/20/18 15:30 112 25 93/74 (80) 100 09/20/18 15:20 118 Nasal Cannula 2.0 28 09/20/18 15:20 Nasal Cannula 2.0 28 09/20/18 15:00 112 19 92/ (81) 99 09/20/18 15:00 92/09/20/18 15:00 9209/20/18 14:30 109 23 89/74 (79) 100 09/20/18 14:00 112 20 90/ (79) 100 09/20/18 14:00 9209/20/18 14:00 09/20/18 13:52 Micro: Microbiology Date/Time Source Procedure Growth Status 09/18/18 23:27 Blood Blood Culture - Preliminary Staphylococcus Species Resulted 09/18/18 23:12 Blood Blood Culture - Preliminary NO GROWTH AFTER 48 HOURS Resulted 09/18/18 23:15 Nasal Nares MRSA Culture - Final NO METHICILLIN RESISTANT STAPH AUREUS... Complete 09/18/18 23:15 Rectum - Final NO CARBAPENEM-RESISTANT ENTEROBACTERI... Complete 09/18/18 23:15 Rectum VRE Culture - Final NO VANCOMYCIN RESISTANT ENTEROCOCCUS ... Complete Accucheck: 148 Critical Care - Subjective ROS Limited/Unobtainable: No Condition: stable FI02: 24 Sputum Amount: None Tube Feeding Amount: 55 I&O: Intake and Output 09/20/18 09/21/18 19:00 07:00 Intake Total 2761.541 ml 2044.940 ml Output Total 560 ml 820 ml Balance 2201.541 ml 1224.940 ml Intake Free Water 150 ml 200 ml IV Total 1951.541 ml 1184.940 ml Tube Feeding 660 ml 660 ml Output Urine Total 560 ml 820 ml Robbin Diana MD Sep 21, 2018 13:45
--- NOTE | 2018-09-21 14:09 | Cardiac Electrophysiology PN ---
Assessment/Plan Assessment/Plan 1. Atrial flutter with rapid ventricular response 140s. HR 100s. Loaded with Digoxin. Dig level 0.5. Off Coreg for low BP. Had atrial flutter in December 2017 and previous admission also. Consider atrial flutter ablation as out patient. Dig level 0.5. On Dig o.125 daily 2. 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 Cardiac catheterization by me in December 2017 no CAD. DCed all CHF meds( Cozaar 25 mg daily, Aldactone 12.5 mg daily, and Coreg 3.125 mg b.i.d) On Dopamine 3 Mcg and Dobutamine 3 mc/min. On Levophed 3. 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 History of DVT 5. History of hypertension. 6. Severe MAIK 0.3 7. Dysphagia, S/P PEG 8. 15 beats of nonsustained VT. Due to severe non ischemic CMP. Consider ICD specially for EF 15% as out patient DW RN aand Subjective Subjective In ICU on Levophed 12 mc, Dopamine and Dobutamine 3 mcg and heparin drip. Still in atrial flutter. and RN at bedside Objective Last 24 Hour Vital Signs Date Time Temp Pulse Resp B/P (MAP) Pulse Ox O2 Delivery O2 Flow Rate FiO2 09/21/18 12:30 115 20 117/97 (104) 98 09/21/18 12:00 96 09/21/18 12:00 97.8 120 20 94/78 (83) 100 09/21/18 12:00 Nasal Cannula 2.0 09/21/18 11:30 99 22 95/80 (85) 98 09/21/18 11:00 98 22 93/74 (80) 98 09/21/18 10:48 97 21 100 Nasal Cannula 1.0 24 09/21/18 10:47 98 21 100 Nasal Cannula 1.0 24 09/21/18 10:30 98 40 94/73 (80) 98 09/21/18 10:00 104 36 96/75 (82) 98 09/21/18 09:30 94 52 99/71 (80) 98 09/21/18 09:00 105 51 93/74 (80) 97 09/21/18 08:37 98.8 09/21/18 08:30 106 22 96/76 (83) 100 09/21/18 08:08 108 09/21/18 08:00 98.8 106 25 98/73 (81) 99 09/21/18 08:00 107 09/21/18 08:00 Nasal Cannula 2.0 09/21/18 07:30 107 25 101/82 (88) 99 09/21/18 07:00 105 26 98/79 (85) 100 09/21/18 06:55 98 24 100 Nasal Cannula 2.0 28 09/21/18 06:48 100 Nasal Cannula 2.0 28 09/21/18 06:47 93 28 100 Nasal Cannula 2.0 28 09/21/18 06:30 99 27 99/76 (84) 98 09/21/18 06:00 107 27 97/73 (81) 99 09/21/18 05:30 97 25 98/81 (87) 100 09/21/18 05:00 102 29 96/81 (86) 100 09/21/18 04:30 104 25 94/63 (73) 100 09/21/18 04:02 67/47 09/21/18 04:01 97/98 09/21/18 04:00 98.6 109 21 86/72 (77) 100 09/21/18 04:00 Nasal Cannula 2.0 09/21/18 04:00 100 09/21/18 03:30 111 22 97/68 (78) 98 09/21/18 03:25 111 20 100 Nasal Cannula 2.0 09/21/18 03:15 93 19 98 Nasal Cannula 2.0 09/21/18 03:00 101 26 99/72 (81) 97 09/21/18 02:30 92 23 106/76 (86) 100 09/21/18 02:00 84 20 91/65 (74) 100 09/21/18 01:30 85 22 91/76 (81) 100 09/21/18 01:03 94 22 100 Nasal Cannula 2.0 28 09/21/18 01:00 90 22 95/76 (82) 100 09/21/18 00:49 94 19 100 Nasal Cannula 2.0 28 09/21/18 00:30 84 24 100/77 (85) 100 09/21/18 00:07 83 09/21/18 00:00 82 09/21/18 00:00 98.5 85 20 101/69 (80) 100 09/21/18 00:00 Nasal Cannula 2.0 09/20/18 23:39 81 38 87/64 (72) 100 09/20/18 23:30 69 40 76/60 (65) 100 09/20/18 23:00 94/72 09/20/18 23:00 102 32 94/73 (80) 100 09/20/18 22:30 98 28 91/72 (78) 100 09/20/18 22:00 110 25 92/74 (80) 100 09/20/18 21:30 109 39 95/72 (80) 100 09/20/18 21:00 108 33 97/72 (80) 100 09/20/18 20:30 83 17 88/66 (73) 100 09/20/18 20:00 84 09/20/18 20:00 98.6 86 32 83/67 (72) 99 09/20/18 20:00 Nasal Cannula 2.0 09/20/18 19:38 84 18 100 Nasal Cannula 2.0 28 09/20/18 19:30 79 22 95/68 (77) 100 09/20/18 19:29 100 Nasal Cannula 2.0 28 09/20/18 19:28 76 24 100 Nasal Cannula 2.0 28 09/20/18 19:00 84 22 90/68 (75) 100 09/20/18 19:00 90/68 09/20/18 19:00 90/68 09/20/18 18:30 86 29 91/65 (74) 09/20/18 18:00 93/72 09/20/18 18:00 93/72 09/20/18 18:00 77 35 93/72 (79) 99 09/20/18 17:30 78 23 93/72 (79) 99 09/20/18 17:00 102/72 09/20/18 17:00 100/72 09/20/18 17:00 102 22 102/71 (81) 100 09/20/18 16:30 110 27 98/79 (85) 100 09/20/18 16:00 98.0 108 18 98/79 (85) 100 09/20/18 16:00 111 09/20/18 16:00 98/79 09/20/18 16:00 98/79 09/20/18 16:00 Nasal Cannula 2.0 09/20/18 15:40 93/74 09/20/18 15:40 93/74 09/20/18 15:40 93/74 09/20/18 15:40 93/74 09/20/18 15:39 113 09/20/18 15:30 112 25 93/74 (80) 100 09/20/18 15:20 118 Nasal Cannula 2.0 28 09/20/18 15:20 Nasal Cannula 2.0 28 09/20/18 15:00 112 19 92/75 (81) 99 09/20/18 15:00 92/09/20/18 15:00 92/09/20/18 14:30 109 23 89/74 (79) 100 Intake and Output 09/20/18 09/21/18 19:00 07:00 Intake Total 2761.541 ml 2044.940 ml Output Total 560 ml 820 ml Balance 2201.541 ml 1224.940 ml Intake Free Water 150 ml 200 ml IV Total 1951.541 ml 1184.940 ml Tube Feeding 660 ml 660 ml Output Urine Total 560 ml 820 ml Laboratory Tests Test 09/21/18 04:25 09/21/18 11:45 White Blood Count 6.9 K/UL (4.8-10.8) Red Blood Count 3.16 M/UL (4.70-6.10) L Hemoglobin 10.7 G/DL (14.2-18.0) L Hematocrit 33.4 % (42.0-52.0) L Mean Corpuscular Volume 106 FL (80-99) H Mean Corpuscular Hemoglobin 33.9 PG (27.0-31.0) H Mean Corpuscular Hemoglobin Concent 32.1 G/DL (32.0-36.0) Red Cell Distribution Width 14.5 % (11.6-14.8) Platelet Count 140 K/UL (150-450) L Mean Platelet Volume 9.6 FL (6.5-10.1) Neutrophils (%) (Auto) 76.4 % (45.0-75.0) H Lymphocytes (%) (Auto) 13.7 % (20.0-45.0) L Monocytes (%) (Auto) 7.0 % (1.0-10.0) Eosinophils (%) (Auto) 1.9 % (0.0-3.0) Basophils (%) (Auto) 1.0 % (0.0-2.0) Activated Partial Thromboplast Time 108 SEC (23-33) H 71 SEC (23-33) H Sodium Level 137 MMOL/L (136-145) Potassium Level 3.4 MMOL/L (3.5-5.1) L Chloride Level 107 MMOL/L (98-107) Carbon Dioxide Level 24 MMOL/L (21-32) Anion Gap 6 mmol/L (5-15) Blood Urea Nitrogen 21 mg/dL (7-18) H Creatinine 1.0 MG/DL (0.55-1.30) Estimat Glomerular Filtration Rate mL/min (>60) Glucose Level 171 MG/DL (74-106) H Calcium Level 7.5 MG/DL (8.5-10.1) L Phosphorus Level 2.6 MG/DL (2.5-4.9) Magnesium Level 2.0 MG/DL (1.8-2.4) Total Bilirubin 1.1 MG/DL (0.2-1.0) H Direct Bilirubin 0.6 MG/DL (0.0-0.3) H Aspartate Amino Transf (AST/SGOT) 15 U/L (15-37) Alanine Aminotransferase (ALT/SGPT) < 6 U/L (12-78) L Alkaline Phosphatase 57 U/L (46-116) Total Protein 6.0 G/DL (6.4-8.2) L Albumin 2.0 G/DL (3.4-5.0) L Digoxin Level 1.6 NG/ML (0.5-2.0) Microbiology Date/Time Source Procedure Growth Status 09/18/18 23:27 Blood Blood Culture - Preliminary Staphylococcus Species Resulted 09/18/18 23:12 Blood Blood Culture - Preliminary NO GROWTH AFTER 48 HOURS Resulted 09/18/18 23:15 Nasal Nares MRSA Culture - Final NO METHICILLIN RESISTANT STAPH AUREUS... Complete 09/18/18 23:15 Rectum - Final NO CARBAPENEM-RESISTANT ENTEROBACTERI... Complete 09/18/18 23:15 Rectum VRE Culture - Final NO VANCOMYCIN RESISTANT ENTEROCOCCUS ... Complete Objective HEAD AND NECK: Face Mask with positive JVD. LUNGS: Coarse rhonchi. CARDIOVASCULAR: Irregular. S1 and S2 with no gallop or murmur. ABDOMEN: Soft.PEG in place EXTREMITIES: No pitting edema. Antonio Conde MD Sep 21, 2018 14:09
[2018-09-21] MEDS ORDERED: Tubing IV Secondary IV ONE (15:26)
[2018-09-21] MEDS ORDERED: D5NS 1000ml IV ONE (15:28)
[2018-09-21] MEDS: Dyna-Hex 2% Top Sol 2oz TOPIC SCH (19:58)
--- NOTE | 2018-09-21 20:57 | General Progress Note ---
Assessment/Plan Problem List: (1) Atrial fibrillation ICD Codes: I48.91 - Unspecified atrial fibrillation SNOMED: 46094747 (2) Anemia ICD Codes: D64.9 - Anemia, unspecified SNOMED: 744067275 (3) Severe protein-calorie malnutrition ICD Codes: E43 - Unspecified severe protein-calorie malnutrition SNOMED: 236942188, 264439354, 339635775 (4) Encounter for PEG (percutaneous endoscopic gastrostomy) ICD Codes: Z43.1 - Encounter for attention to gastrostomy SNOMED: 270037724, 423933523 (5) Altered level of consciousness ICD Codes: R40.4 - Transient alteration of awareness SNOMED: 3853586 (6) Hypotension ICD Codes: I95.9 - Hypotension, unspecified SNOMED: 58585226 Status: progressing, unchanged Assessment/Plan: a fib w rvr peg hypotension reviewed chart and labs and meds positive bllod cx septic shock resp insuff on pressors Subjective ROS Limited/Unobtainable: Yes Allergies: Coded Allergies: No Known Allergies (Unverified , 01/07/18) Objective Last 24 Hour Vital Signs Date Time Temp Pulse Resp B/P (MAP) Pulse Ox O2 Delivery O2 Flow Rate FiO2 09/21/18 19:44 101 26 100 Nasal Cannula 2.0 28 09/21/18 19:34 105 25 98 Nasal Cannula 2.0 28 09/21/18 19:34 98 Nasal Cannula 2.0 28 09/21/18 19:00 101 24 93/64 (74) 98 09/21/18 18:30 104 25 90/73 (79) 98 09/21/18 18:00 103 24 89/66 (74) 97 09/21/18 17:30 100 25 87/67 (74) 98 09/21/18 17:13 99 22 90/64 (73) 97 09/21/18 17:01 99 39 86/63 (71) 95 09/21/18 17:00 98 43 82/67 (72) 98 09/21/18 16:30 103 25 93/68 (76) 97 09/21/18 16:00 Nasal Cannula 2.0 09/21/18 16:00 99 09/21/18 16:00 98.6 95 24 101/73 (82) 97 09/21/18 15:30 105 25 91/72 (78) 97 09/21/18 15:15 92/73 09/21/18 15:01 Nasal Cannula 1.0 24 09/21/18 15:01 Nasal Cannula 1.0 24 09/21/18 15:00 103 27 92/73 (79) 98 09/21/18 14:30 104 23 95/74 (81) 100 09/21/18 14:00 103 24 92/78 (83) 100 09/21/18 13:31 103 22 93/75 (81) 97 09/21/18 13:30 107 22 89/70 (76) 97 09/21/18 13:00 103 24 100/70 (80) 100 09/21/18 12:30 115 20 117/97 (104) 98 09/21/18 12:00 96 09/21/18 12:00 97.8 120 20 94/78 (83) 100 09/21/18 12:00 Nasal Cannula 2.0 09/21/18 11:30 99 22 95/80 (85) 98 09/21/18 11:00 98 22 93/74 (80) 98 09/21/18 10:48 97 21 100 Nasal Cannula 1.0 24 09/21/18 10:47 98 21 100 Nasal Cannula 1.0 24 09/21/18 10:30 98 40 94/73 (80) 98 09/21/18 10:00 104 36 96/75 (82) 98 09/21/18 09:30 94 52 99/71 (80) 98 09/21/18 09:00 105 51 93/74 (80) 97 09/21/18 08:37 98.8 09/21/18 08:30 106 22 96/76 (83) 100 09/21/18 08:08 108 09/21/18 08:00 98.8 106 25 98/73 (81) 99 09/21/18 08:00 107 09/21/18 08:00 Nasal Cannula 2.0 09/21/18 07:30 107 25 101/82 (88) 99 09/21/18 07:00 105 26 98/79 (85) 100 09/21/18 06:55 98 24 100 Nasal Cannula 2.0 28 09/21/18 06:48 100 Nasal Cannula 2.0 28 09/21/18 06:47 93 28 100 Nasal Cannula 2.0 28 09/21/18 06:30 99 27 99/76 (84) 98 09/21/18 06:00 107 27 97/73 (81) 99 09/21/18 05:30 97 25 98/81 (87) 100 09/21/18 05:00 102 29 96/81 (86) 100 09/21/18 04:30 104 25 94/63 (73) 100 09/21/18 04:02 67/47 09/21/18 04:01 97/98 09/21/18 04:00 98.6 109 21 86/72 (77) 100 09/21/18 04:00 Nasal Cannula 2.0 09/21/18 04:00 100 09/21/18 03:30 111 22 97/68 (78) 98 09/21/18 03:25 111 20 100 Nasal Cannula 2.0 28 09/21/18 03:15 93 19 98 Nasal Cannula 2.0 28 09/21/18 03:00 101 26 99/72 (81) 97 09/21/18 02:30 92 23 106/76 (86) 100 09/21/18 02:00 84 20 91/65 (74) 100 09/21/18 01:30 85 22 91/76 (81) 100 09/21/18 01:03 94 22 100 Nasal Cannula 2.0 28 09/21/18 01:00 90 22 95/76 (82) 100 09/21/18 00:49 94 19 100 Nasal Cannula 2.0 28 09/21/18 00:30 84 24 100/77 (85) 100 09/21/18 00:07 83 09/21/18 00:00 82 09/21/18 00:00 98.5 85 20 101/69 (80) 100 09/21/18 00:00 Nasal Cannula 2.0 09/20/18 23:39 81 38 87/64 (72) 100 09/20/18 23:30 69 40 76/60 (65) 100 09/20/18 23:00 94/72 09/20/18 23:00 102 32 94/73 (80) 100 09/20/18 22:30 98 28 91/72 (78) 100 09/20/18 22:00 110 25 92/74 (80) 100 09/20/18 21:30 109 39 95/72 (80) 100 09/20/18 21:00 108 33 97/72 (80) 100 Intake and Output 09/20/18 09/21/18 19:00 07:00 Intake Total 2761.541 ml 2091.377 ml Output Total 560 ml 820 ml Balance 2201.541 ml 1271.377 ml Intake Free Water 150 ml 200 ml IV Total 1951.541 ml 1231.377 ml Tube Feeding 660 ml 660 ml Output Urine Total 560 ml 820 ml Laboratory Tests 09/21/18 04:25: White Blood Count 6.9, Red Blood Count 3.16L, Hemoglobin 10.7L, Hematocrit 33.4L , Mean Corpuscular Volume 106H, Mean Corpuscular Hemoglobin 33.9H, Mean Corpuscular Hemoglobin Concent 32.1, Red Cell Distribution Width 14.5, Platelet Count 140L, Mean Platelet Volume 9.6, Neutrophils (%) (Auto) 76.4H, Lymphocytes (%) (Auto) 13.7L, Monocytes (%) (Auto) 7.0, Eosinophils (%) (Auto) 1.9, Basophils (%) (Auto) 1.0, Activated Partial Thromboplast Time 108H, Sodium Level 137, Potassium Level 3.4L, Chloride Level 107, Carbon Dioxide Level 24, Anion Gap 6, Blood Urea Nitrogen 21H, Creatinine 1.0, Estimat Glomerular Filtration Rate , Glucose Level 171H, Calcium Level 7.5L, Phosphorus Level 2.6, Magnesium Level 2.0, Total Bilirubin 1.1H, Direct Bilirubin 0.6H, Aspartate Amino Transf (AST/SGOT) 15, Alanine Aminotransferase (ALT/SGPT) < 6L, Alkaline Phosphatase 57, Total Protein 6.0L, Albumin 2.0L, Digoxin Level 1.6 09/21/18 11:45: Activated Partial Thromboplast Time 71H Height (Feet): 5 Height (Inches): 8.00 Weight (Pounds): 130 EENT: PERRL/EOMI Cardiovascular: normal rate Respiratory/Chest: lungs clear Abdomen: soft Inocencia Watt MD Sep 21, 2018 20:57
[2018-09-22] VITALS (55 sets, daily range): BP systolic 70–120; BP diastolic 53–106
[2018-09-22] MEDS: Albuterol/Ipratropium 3ml neb HHN SCH ×6 (03:25→22:19)
[2018-09-22] MEDS: DOBUTamine 250mg/250ml Premix 250 ML IV SCH (04:02)
[2018-09-22 05:18] LABS: BASOPHILS % (AUTO) 0.8 % (0.0-2.0); EOSINOPHILS % (AUTO) 2.4 % (0.0-3.0); HEMOGLOBIN 10.1 G/DL (14.2-18.0); LYMPHOCYTES % (AUTO) 10.4 % (20.0-45.0); MEAN CORPUSCULAR VOLUME 106 FL (80-99); MONOCYTES % (AUTO) 8.2 % (1.0-10.0); NEUTROPHILS % (AUTO) 78.2 % (45.0-75.0); PLATELET COUNT 146 K/UL (150-450); RED BLOOD COUNT 3.02 M/UL (4.70-6.10); RED CELL DISTRIBUTION WIDTH 15.1 % (11.6-14.8); WHITE BLOOD COUNT 9.3 K/UL (4.8-10.8)
[2018-09-22] MEDS: Piperacillin/Tazobactam 4.5 GM in NS 110 ML IVPB SCH ×3 (05:30→22:12)
[2018-09-22 05:49] LABS: ALANINE AMINOTRANSFERASE < 6 U/L (12-78); ALBUMIN 1.9 G/DL (3.4-5.0); ALKALINE PHOSPHATASE 63 U/L (46-116); ANION GAP 6 mmol/L (5-15); ASPARTATE AMINO TRANSFERASE 17 U/L (15-37); BILIRUBIN,DIRECT 0.6 MG/DL (0.0-0.3); BILIRUBIN,TOTAL 1.1 MG/DL (0.2-1.0); BLOOD UREA NITROGEN 18 mg/dL (7-18); CALCIUM 7.9 MG/DL (8.5-10.1); CARBON DIOXIDE 26 MMOL/L (21-32); CHLORIDE 106 MMOL/L (98-107); CREATININE 0.9 MG/DL (0.55-1.30); PHOSPHORUS 2.3 MG/DL (2.5-4.9); POTASSIUM 4.1 MMOL/L (3.5-5.1); SODIUM 138 MMOL/L (136-145)
[2018-09-22] MEDS: DOPamine 400mg/250ml 250 ML IV SCH (07:41)
[2018-09-22] MEDS: Heparin 25,000u/D5W 500ml (VTE/AF) IV SCH (07:50)
[2018-09-22] MEDS: Digoxin 0.125mg tab PEG SCH (09:05)
[2018-09-22] MEDS: Vancomycin 1.25gm Premix IVPB SCH (09:05)
--- NOTE | 2018-09-22 09:05 | Nephrology Progress Note ---
Assessment/Plan Assessment 1. Prerenal azotemia and dehydration. 2. Hypocalcemia. 3. Hypomagnesemia. 4. Possible failure to thrive, low albumin and low total protein. Pre-albumin level needs to be checked. 5. Possible pneumonia. Plan d/c ivf replace mg monitoring renal function avoid NSAID replace electrolyte Subjective ROS Limited/Unobtainable: Yes Constitutional: Reports: no symptoms HEENT: Reports: no symptoms Genitourinary: Reports: no symptoms Neurologic/Psychiatric: Reports: no symptoms Subjective continue to be in icu no complaints Objective Objective Last 24 Hour Vital Signs Date Time Temp Pulse Resp B/P (MAP) Pulse Ox O2 Delivery O2 Flow Rate FiO2 09/22/18 08:00 Nasal Cannula 2.0 09/22/18 07:41 89/71 09/22/18 07:00 101 19 90/70 (77) 100 09/22/18 07:00 90/09/22/18 06:57 100 Nasal Cannula 2.0 09/22/18 06:53 100 22 97 Nasal Cannula 2.0 09/22/18 06:47 99 25 96 Nasal Cannula 2.0 09/22/18 06:30 102 26 90/70 (77) 96 09/22/18 06:00 93/66 09/22/18 06:00 102 24 93/66 (75) 96 09/22/18 05:30 101 21 97/69 (78) 98 09/22/18 05:00 103 32 96/75 (82) 97 09/22/18 05:00 96/75 09/22/18 04:30 103 25 94/71 (79) 96 09/22/18 04:02 97/70 09/22/18 04:00 98.2 103 29 90/63 (72) 97 09/22/18 04:00 90/63 09/22/18 04:00 Nasal Cannula 2.0 09/22/18 03:30 103 27 90/69 (76) 98 09/22/18 03:30 104 24 98 Nasal Cannula 2.0 09/22/18 03:25 108 24 98 Nasal Cannula 2.0 09/22/18 03:22 110 09/22/18 03:00 101 28 93/77 (82) 99 09/22/18 03:00 93/77 8/5/19 02:30 98 28 87/72 (77) 99 09/22/18 02:00 102 28 89/69 (76) 97 09/22/18 02:00 89/69 09/22/18 01:30 95 28 95/70 (78) 99 09/22/18 01:18 96/72 09/22/18 01:00 109 32 96/72 (80) 98 09/22/18 01:00 96/72 09/22/18 00:30 104 31 94/72 (79) 95 09/22/18 00:00 97.7 102 32 93/73 (80) 99 09/22/18 00:00 93/73 09/22/18 00:00 Nasal Cannula 2.0 09/21/18 23:32 106 09/21/18 23:30 104 28 94/71 (79) 98 09/21/18 23:16 Nasal Cannula 2.0 28 09/21/18 23:16 Nasal Cannula 2.0 28 09/21/18 23:00 96/67 09/21/18 23:00 103 25 96/67 (77) 98 09/21/18 22:30 107 30 96/65 (75) 98 09/21/18 22:00 110 32 96/67 (77) 97 09/21/18 22:00 96/97 09/21/18 21:30 100 28 93/73 (80) 99 09/21/18 21:00 95/71 09/21/18 21:00 108 26 95/71 (79) 98 09/21/18 20:30 101 30 96/71 (79) 98 09/21/18 20:00 98.6 104 29 87/96 (93) 98 09/21/18 20:00 Nasal Cannula 2.0 09/21/18 20:00 87/69 09/21/18 19:44 101 26 100 Nasal Cannula 2.0 28 09/21/18 19:34 105 25 98 Nasal Cannula 2.0 28 09/21/18 19:34 98 Nasal Cannula 2.0 28 09/21/18 19:30 100 32 93/64 (74) 98 09/21/18 19:22 107 09/21/18 19:00 101 24 93/64 (74) 98 09/21/18 18:30 104 25 90/73 (79) 98 09/21/18 18:00 103 24 89/66 (74) 97 09/21/18 17:30 100 25 87/67 (74) 98 09/21/18 17:13 99 22 90/64 (73) 97 09/21/18 17:01 99 39 86/63 (71) 95 09/21/18 17:00 98 43 82/67 (72) 98 09/21/18 16:30 103 25 93/68 (76) 97 09/21/18 16:00 Nasal Cannula 2.0 09/21/18 16:00 99 09/21/18 16:00 98.6 95 24 101/73 (82) 97 09/21/18 15:30 105 25 91/72 (78) 97 09/21/18 15:15 92/73 09/21/18 15:01 Nasal Cannula 1.0 24 09/21/18 15:01 Nasal Cannula 1.0 24 09/21/18 15:00 103 27 92/73 (79) 98 09/21/18 14:30 104 23 95/74 (81) 100 09/21/18 14:00 103 24 92/78 (83) 100 09/21/18 13:31 103 22 93/75 (81) 97 09/21/18 13:30 107 22 89/70 (76) 97 09/21/18 13:00 103 24 100/70 (80) 100 09/21/18 12:30 115 20 117/97 (104) 98 09/21/18 12:00 96 09/21/18 12:00 97.8 120 20 94/78 (83) 100 09/21/18 12:00 Nasal Cannula 2.0 09/21/18 11:30 99 22 95/80 (85) 98 09/21/18 11:00 98 22 93/74 (80) 98 09/21/18 10:48 97 21 100 Nasal Cannula 1.0 24 09/21/18 10:47 98 21 100 Nasal Cannula 1.0 24 09/21/18 10:30 98 40 94/73 (80) 98 09/21/18 10:00 104 36 96/75 (82) 98 09/21/18 09:30 94 52 99/71 (80) 98 Intake and Output 09/21/18 09/22/18 19:00 07:00 Intake Total 2217.920 ml 1838.974 ml Output Total 710 ml 2550 ml Balance 1507.920 ml -711.026 ml Intake Free Water 30 ml 270 ml IV Total 1527.920 ml 908.974 ml Tube Feeding 660 ml 660 ml Output Urine Total 710 ml 2550 ml # Bowel Movements 1 Laboratory Tests 09/21/18 11:45: Activated Partial Thromboplast Time 71H 09/22/18 04:00: Activated Partial Thromboplast Time 70H, White Blood Count 9.3, Red Blood Count 3.02L, Hemoglobin 10.1L, Hematocrit 32.0L, Mean Corpuscular Volume 106H, Mean Corpuscular Hemoglobin 33.6H, Mean Corpuscular Hemoglobin Concent 31.7L, Red Cell Distribution Width 15.1H, Platelet Count 146L, Mean Platelet Volume 9.1, Neutrophils (%) (Auto) 78.2H, Lymphocytes (%) (Auto) 10.4L, Monocytes (%) (Auto ) 8.2, Eosinophils (%) (Auto) 2.4, Basophils (%) (Auto) 0.8, Sodium Level 138, Potassium Level 4.1, Chloride Level 106, Carbon Dioxide Level 26, Anion Gap 6, Blood Urea Nitrogen 18, Creatinine 0.9, Estimat Glomerular Filtration Rate , Glucose Level 138H, Calcium Level 7.9L, Phosphorus Level 2.3L, Magnesium Level 1.7L, Total Bilirubin 1.1H, Direct Bilirubin 0.6H, Aspartate Amino Transf (AST/ SGOT) 17, Alanine Aminotransferase (ALT/SGPT) < 6L, Alkaline Phosphatase 63, Total Protein 5.6L, Albumin 1.9L 09/22/18 07:34: Vancomycin Level Trough 15.3H Height (Feet): 5 Height (Inches): 8.00 Weight (Pounds): 127 Objective HEAD AND NECK: No JVP. No LAD. No thyromegaly. Bitemporal wasting. Mucous membranes are dry. LUNGS: Bilateral rhonchi. CARDIAC: Regular rate and rhythm. S1 and S2. No murmur. No rub. ABDOMEN: Soft, nontender, and nondistended. EXTREMITIES: No edema. No clubbing. No cyanosis. Tiffanie Huber MD Sep 22, 2018 09:05
[2018-09-22] MEDS: Pantoprazole Inj IVP SCH (09:06)
[2018-09-22] MEDS: Aspirin Baby 81mg GT SCH (09:06)
[2018-09-22] MEDS ORDERED: NS 275ml ONE (11:09)
--- NOTE | 2018-09-22 12:14 | GI Progress Note ---
Assessment/Plan Problems: (1) Encounter for PEG (percutaneous endoscopic gastrostomy) ICD Codes: Z43.1 - Encounter for attention to gastrostomy SNOMED: 372808729, 829127805 (2) Severe protein-calorie malnutrition ICD Codes: E43 - Unspecified severe protein-calorie malnutrition SNOMED: 882318949, 498132304, 730691291 (3) Anemia ICD Codes: D64.9 - Anemia, unspecified SNOMED: 886030065 (4) Atrial fibrillation ICD Codes: I48.91 - Unspecified atrial fibrillation SNOMED: 86135047 (5) Abnormal LFTs ICD Codes: R94.5 - Abnormal results of liver function studies SNOMED: 158687468 Status: unchanged Status Narrative Discussed with Dr. Boo. Assessment/Plan 1. Hypertension. 2. History of non-ST elevation myocardial infarction. 3. Severe cardiomyopathy with EF of 20%. 4. Atrial flutter. 5. Right leg DVT. 6. Dysphagia with G-tube placement in last admission. GTF on pressors abx per ID on heparin drip for A. flutter fu labs The patient was seen and examined at bedside and all new and available data was reviewed in the patients chart. I agree with the above findings, impression and plan. (Patient seen earlier today. Signature stamp does not reflect patient encounter time.). - Phoenix Boo MD Subjective Subjective limited Objective Last 24 Hour Vital Signs Date Time Temp Pulse Resp B/P (MAP) Pulse Ox O2 Delivery O2 Flow Rate FiO2 09/22/18 12:00 Nasal Cannula 2.0 09/22/18 12:00 98.7 115 20 98/73 (81) 97 09/22/18 11:30 102 33 94/68 (77) 96 09/22/18 11:25 95/69 09/22/18 11:00 100 28 94/73 (80) 96 09/22/18 10:46 Nasal Cannula 2.0 28 09/22/18 10:46 Nasal Cannula 2.0 28 09/22/18 10:30 102 30 98/71 (80) 95 09/22/18 10:00 99 30 99/69 (79) 95 09/22/18 09:30 105 20 90/70 (77) 97 09/22/18 09:05 112 09/22/18 09:00 95 09/22/18 09:00 112 21 92/66 (75) 96 09/22/18 08:30 103 18 94/71 (79) 96 09/22/18 08:00 Nasal Cannula 2.0 09/22/18 08:00 105 09/22/18 08:00 97.9 96 35 89/64 (72) 97 09/22/18 07:41 89/71 09/22/18 07:30 97 29 70/53 (59) 97 09/22/18 07:00 101 19 90/70 (77) 100 09/22/18 07:00 90/70 09/22/18 06:57 100 Nasal Cannula 2.0 28 09/22/18 06:53 100 22 97 Nasal Cannula 2.0 28 09/22/18 06:47 99 25 96 Nasal Cannula 2.0 28 09/22/18 06:30 102 26 90/70 (77) 96 09/22/18 06:00 93/66 09/22/18 06:00 102 24 93/66 (75) 96 09/22/18 05:30 101 21 97/69 (78) 98 09/22/18 05:00 103 32 96/75 (82) 97 09/22/18 05:00 96/75 09/22/18 04:30 103 25 94/71 (79) 96 09/22/18 04:02 97/70 09/22/18 04:00 98.2 103 29 90/63 (72) 97 09/22/18 04:00 90/63 09/22/18 04:00 Nasal Cannula 2.0 09/22/18 03:30 103 27 90/69 (76) 98 09/22/18 03:30 104 24 98 Nasal Cannula 2.0 28 09/22/18 03:25 108 24 98 Nasal Cannula 2.0 28 09/22/18 03:22 110 09/22/18 03:00 101 28 93/77 (82) 99 09/22/18 03:00 93/77 09/22/18 02:30 98 28 87/72 (77) 99 09/22/18 02:00 102 28 89/69 (76) 97 09/22/18 02:00 89/69 09/22/18 01:30 95 28 95/70 (78) 99 09/22/18 01:18 96/72 09/22/18 01:00 109 32 96/72 (80) 98 09/22/18 01:00 96/72 09/22/18 00:30 104 31 94/72 (79) 95 09/22/18 00:00 97.7 102 32 93/73 (80) 99 09/22/18 00:00 93/73 09/22/18 00:00 Nasal Cannula 2.0 09/21/18 23:32 106 09/21/18 23:30 104 28 94/71 (79) 98 09/21/18 23:16 Nasal Cannula 2.0 28 09/21/18 23:16 Nasal Cannula 2.0 28 09/21/18 23:00 96/67 09/21/18 23:00 103 25 96/67 (77) 98 09/21/18 22:30 107 30 96/65 (75) 98 09/21/18 22:00 110 32 96/67 (77) 97 09/21/18 22:00 96/97 09/21/18 21:30 100 28 93/73 (80) 99 09/21/18 21:00 95/71 09/21/18 21:00 108 26 95/71 (79) 98 09/21/18 20:30 101 30 96/71 (79) 98 09/21/18 20:00 98.6 104 29 87/96 (93) 98 09/21/18 20:00 Nasal Cannula 2.0 09/21/18 20:00 87/69 09/21/18 19:44 101 26 100 Nasal Cannula 2.0 28 09/21/18 19:34 105 25 98 Nasal Cannula 2.0 28 09/21/18 19:34 98 Nasal Cannula 2.0 28 09/21/18 19:30 100 32 93/64 (74) 98 09/21/18 19:22 107 09/21/18 19:00 101 24 93/64 (74) 98 09/21/18 18:30 104 25 90/73 (79) 98 09/21/18 18:00 103 24 89/66 (74) 97 09/21/18 17:30 100 25 87/67 (74) 98 09/21/18 17:13 99 22 90/64 (73) 97 09/21/18 17:01 99 39 86/63 (71) 95 8/4/19 17:00 98 43 82/67 (72) 98 09/21/18 16:30 103 25 93/68 (76) 97 09/21/18 16:00 Nasal Cannula 2.0 09/21/18 16:00 99 09/21/18 16:00 98.6 95 24 101/73 (82) 97 09/21/18 15:30 105 25 91/72 (78) 97 09/21/18 15:15 92/73 09/21/18 15:01 Nasal Cannula 1.0 24 09/21/18 15:01 Nasal Cannula 1.0 24 09/21/18 15:00 103 27 92/73 (79) 98 09/21/18 14:30 104 23 95/74 (81) 100 09/21/18 14:00 103 24 92/78 (83) 100 09/21/18 13:31 103 22 93/75 (81) 97 09/21/18 13:30 107 22 89/70 (76) 97 09/21/18 13:00 103 24 100/70 (80) 100 09/21/18 12:30 115 20 117/97 (104) 98 Intake and Output 09/21/18 09/22/18 18:59 06:59 Intake Total 2166.530 ml 1869.004 ml Output Total 725 ml 2445 ml Balance 1441.530 ml -575.996 ml Intake Free Water 300 ml IV Total 1506.530 ml 909.004 ml Tube Feeding 660 ml 660 ml Output Urine Total 725 ml 2445 ml # Bowel Movements 1 Laboratory Tests Test 09/22/18 04:00 09/22/18 07:34 White Blood Count 9.3 K/UL (4.8-10.8) Red Blood Count 3.02 M/UL (4.70-6.10) L Hemoglobin 10.1 G/DL (14.2-18.0) L Hematocrit 32.0 % (42.0-52.0) L Mean Corpuscular Volume 106 FL (80-99) H Mean Corpuscular Hemoglobin 33.6 PG (27.0-31.0) H Mean Corpuscular Hemoglobin Concent 31.7 G/DL (32.0-36.0) L Red Cell Distribution Width 15.1 % (11.6-14.8) H Platelet Count 146 K/UL (150-450) L Mean Platelet Volume 9.1 FL (6.5-10.1) Neutrophils (%) (Auto) 78.2 % (45.0-75.0) H Lymphocytes (%) (Auto) 10.4 % (20.0-45.0) L Monocytes (%) (Auto) 8.2 % (1.0-10.0) Eosinophils (%) (Auto) 2.4 % (0.0-3.0) Basophils (%) (Auto) 0.8 % (0.0-2.0) Activated Partial Thromboplast Time 70 SEC (23-33) H Sodium Level 138 MMOL/L (136-145) Potassium Level 4.1 MMOL/L (3.5-5.1) Chloride Level 106 MMOL/L (98-107) Carbon Dioxide Level 26 MMOL/L (21-32) Anion Gap 6 mmol/L (5-15) Blood Urea Nitrogen 18 mg/dL (7-18) Creatinine 0.9 MG/DL (0.55-1.30) Estimat Glomerular Filtration Rate mL/min (>60) Glucose Level 138 MG/DL (74-106) H Calcium Level 7.9 MG/DL (8.5-10.1) L Phosphorus Level 2.3 MG/DL (2.5-4.9) L Magnesium Level 1.7 MG/DL (1.8-2.4) L Total Bilirubin 1.1 MG/DL (0.2-1.0) H Direct Bilirubin 0.6 MG/DL (0.0-0.3) H Aspartate Amino Transf (AST/SGOT) 17 U/L (15-37) Alanine Aminotransferase (ALT/SGPT) < 6 U/L (12-78) L Alkaline Phosphatase 63 U/L (46-116) Total Protein 5.6 G/DL (6.4-8.2) L Albumin 1.9 G/DL (3.4-5.0) L Vancomycin Level Trough 15.3 ug/mL (5.0-12.0) H Height (Feet): 5 Height (Inches): 8.00 Weight (Pounds): 127 General Appearance: WD/WN, no apparent distress, alert Cardiovascular: normal rate Respiratory/Chest: normal breath sounds, no respiratory distress Abdominal Exam: normal bowel sounds, non tender, soft, GT site Extremities: non-tender Juarez Mera NP Sep 22, 2018 12:14
--- NOTE | 2018-09-22 13:44 | Infectious Diseases Prog Note ---
Assessment/Plan Assessment/Plan A; Positive blood culture likely contamination Pulmonary edema, ? pneumonia Sepsis/ SIRS Cardiogenic shock Aortic stenosis Atrial flutter HPN Anemia P: Continue Zosyn Discontinue Vancomycin will f/u cultures Subjective ROS Limited/Unobtainable: Yes Constitutional: Denies: fever Allergies: Coded Allergies: No Known Allergies (Unverified , 01/07/18) Objective Vital Signs Last 24 Hour Vital Signs Date Time Temp Pulse Resp B/P (MAP) Pulse Ox O2 Delivery O2 Flow Rate FiO2 09/22/18 12:30 104 22 92/70 (77) 95 09/22/18 12:00 Nasal Cannula 2.0 09/22/18 12:00 98.7 115 20 98/73 (81) 97 09/22/18 11:30 102 33 94/68 (77) 96 09/22/18 11:25 95/69 09/22/18 11:00 100 28 94/73 (80) 96 09/22/18 10:46 Nasal Cannula 2.0 28 09/22/18 10:46 Nasal Cannula 2.0 28 09/22/18 10:30 102 30 98/71 (80) 95 09/22/18 10:00 99 30 99/69 (79) 95 09/22/18 09:30 105 20 90/70 (77) 97 09/22/18 09:05 112 09/22/18 09:00 95 09/22/18 09:00 112 21 92/66 (75) 96 09/22/18 08:30 103 18 94/71 (79) 96 09/22/18 08:00 Nasal Cannula 2.0 09/22/18 08:00 105 09/22/18 08:00 97.9 96 35 89/64 (72) 97 09/22/18 07:41 89/71 09/22/18 07:30 97 29 70/53 (59) 97 09/22/18 07:00 101 19 90/70 (77) 100 09/22/18 07:00 90/70 09/22/18 06:57 100 Nasal Cannula 2.0 28 09/22/18 06:53 100 22 97 Nasal Cannula 2.0 28 09/22/18 06:47 99 25 96 Nasal Cannula 2.0 28 09/22/18 06:30 102 26 90/70 (77) 96 09/22/18 06:00 93/66 09/22/18 06:00 102 24 93/66 (75) 96 09/22/18 05:30 101 21 97/69 (78) 98 09/22/18 05:00 103 32 96/75 (82) 97 09/22/18 05:00 96/75 09/22/18 04:30 103 25 94/71 (79) 96 09/22/18 04:02 97/70 09/22/18 04:00 98.2 103 29 90/63 (72) 97 09/22/18 04:00 90/63 09/22/18 04:00 Nasal Cannula 2.0 09/22/18 03:30 103 27 90/69 (76) 98 09/22/18 03:30 104 24 98 Nasal Cannula 2.0 09/22/18 03:25 108 24 98 Nasal Cannula 2.0 09/22/18 03:22 110 09/22/18 03:00 101 28 93/77 (82) 99 09/22/18 03:00 93/77 09/22/18 02:30 98 28 87/72 (77) 99 09/22/18 02:00 102 28 89/69 (76) 97 09/22/18 02:00 89/69 09/22/18 01:30 95 28 95/70 (78) 99 09/22/18 01:18 96/72 09/22/18 01:00 109 32 96/72 (80) 98 09/22/18 01:00 96/72 09/22/18 00:30 104 31 94/72 (79) 95 09/22/18 00:00 97.7 102 32 93/73 (80) 99 09/22/18 00:00 93/73 09/22/18 00:00 Nasal Cannula 2.0 09/21/18 23:32 106 09/21/18 23:30 104 28 94/71 (79) 98 09/21/18 23:16 Nasal Cannula 2.0 28 09/21/18 23:16 Nasal Cannula 2.0 28 09/21/18 23:00 96/67 09/21/18 23:00 103 25 96/67 (77) 98 09/21/18 22:30 107 30 96/65 (75) 98 09/21/18 22:00 110 32 96/67 (77) 97 09/21/18 22:00 96/97 09/21/18 21:30 100 28 93/73 (80) 99 09/21/18 21:00 95/71 09/21/18 21:00 108 26 95/71 (79) 98 09/21/18 20:30 101 30 96/71 (79) 98 09/21/18 20:00 98.6 104 29 87/96 (93) 98 09/21/18 20:00 Nasal Cannula 2.0 09/21/18 20:00 87/69 09/21/18 19:44 101 26 100 Nasal Cannula 2.0 28 09/21/18 19:34 105 25 98 Nasal Cannula 2.0 28 09/21/18 19:34 98 Nasal Cannula 2.0 28 09/21/18 19:30 100 32 93/64 (74) 98 09/21/18 19:22 107 09/21/18 19:00 101 24 93/64 (74) 98 09/21/18 18:30 104 25 90/73 (79) 98 09/21/18 18:00 103 24 89/66 (74) 97 09/21/18 17:30 100 25 87/67 (74) 98 09/21/18 17:13 99 22 90/64 (73) 97 09/21/18 17:01 99 39 86/63 (71) 95 09/21/18 17:00 98 43 82/67 (72) 98 09/21/18 16:30 103 25 93/68 (76) 97 09/21/18 16:00 Nasal Cannula 2.0 09/21/18 16:00 99 09/21/18 16:00 98.6 95 24 101/73 (82) 97 09/21/18 15:30 105 25 91/72 (78) 97 09/21/18 15:15 92/73 09/21/18 15:01 Nasal Cannula 1.0 24 09/21/18 15:01 Nasal Cannula 1.0 24 09/21/18 15:00 103 27 92/73 (79) 98 09/21/18 14:30 104 23 95/74 (81) 100 09/21/18 14:00 103 24 92/78 (83) 100 Height (Feet): 5 Height (Inches): 8.00 Weight (Pounds): 127 HEENT: mucous membranes moist Respiratory/Chest: lungs clear Cardiovascular: tachycardia, irregularly irregular, other - Right IJ central line Abdomen: soft, non tender Extremities: no edema Neurologic/Psychiatric: alert Microbiology Date/Time Source Procedure Growth Status 09/21/18 07:00 Sputum Gram Stain Pending Resulted 09/21/18 07:00 Sputum Sputum Culture - Preliminary NORMAL UPPER RESPIRATORY SHERON AT 24 ... Resulted Laboratory Tests Test 09/22/18 04:00 09/22/18 07:34 White Blood Count 9.3 K/UL (4.8-10.8) Red Blood Count 3.02 M/UL (4.70-6.10) L Hemoglobin 10.1 G/DL (14.2-18.0) L Hematocrit 32.0 % (42.0-52.0) L Mean Corpuscular Volume 106 FL (80-99) H Mean Corpuscular Hemoglobin 33.6 PG (27.0-31.0) H Mean Corpuscular Hemoglobin Concent 31.7 G/DL (32.0-36.0) L Red Cell Distribution Width 15.1 % (11.6-14.8) H Platelet Count 146 K/UL (150-450) L Mean Platelet Volume 9.1 FL (6.5-10.1) Neutrophils (%) (Auto) 78.2 % (45.0-75.0) H Lymphocytes (%) (Auto) 10.4 % (20.0-45.0) L Monocytes (%) (Auto) 8.2 % (1.0-10.0) Eosinophils (%) (Auto) 2.4 % (0.0-3.0) Basophils (%) (Auto) 0.8 % (0.0-2.0) Activated Partial Thromboplast Time 70 SEC (23-33) H Sodium Level 138 MMOL/L (136-145) Potassium Level 4.1 MMOL/L (3.5-5.1) Chloride Level 106 MMOL/L (98-107) Carbon Dioxide Level 26 MMOL/L (21-32) Anion Gap 6 mmol/L (5-15) Blood Urea Nitrogen 18 mg/dL (7-18) Creatinine 0.9 MG/DL (0.55-1.30) Estimat Glomerular Filtration Rate mL/min (>60) Glucose Level 138 MG/DL (74-106) H Calcium Level 7.9 MG/DL (8.5-10.1) L Phosphorus Level 2.3 MG/DL (2.5-4.9) L Magnesium Level 1.7 MG/DL (1.8-2.4) L Total Bilirubin 1.1 MG/DL (0.2-1.0) H Direct Bilirubin 0.6 MG/DL (0.0-0.3) H Aspartate Amino Transf (AST/SGOT) 17 U/L (15-37) Alanine Aminotransferase (ALT/SGPT) < 6 U/L (12-78) L Alkaline Phosphatase 63 U/L (46-116) Total Protein 5.6 G/DL (6.4-8.2) L Albumin 1.9 G/DL (3.4-5.0) L Vancomycin Level Trough 15.3 ug/mL (5.0-12.0) H Current Medications Medications (Trade) Dose Ordered Sig/Fritz Route PRN Reason Start Time Stop Time Status Last Admin Dose Admin Acetaminophen (Tylenol) 650 mg Q6H PRN GT Mild Pain/Temp > 100.5 09/19/18 03:45 10/19/18 03:44 09/21/18 08:07 Albuterol/ Ipratropium (Albuterol/ Ipratropium) 3 ml Q4H PRN HHN Shortness of Breath 09/19/18 03:30 09/24/18 03:29 Albuterol/ Ipratropium (Albuterol/ Ipratropium) 3 ml Q4HRT HHN 09/19/18 11:00 09/24/18 10:59 09/22/18 06:58 Aspirin (ASA) 81 mg DAILY GT 09/19/18 09:00 10/19/18 08:59 09/22/18 09:06 Chlorhexidine Gluconate (Nadeen-Hex 2%) 1 applic DAILY@2000 TOPIC 09/19/18 20:00 10/19/18 19:59 09/21/18 19:58 Digoxin (Lanoxin) 0.125 mg DAILY PEG 09/20/18 09:00 10/20/18 08:59 09/22/18 09:05 Dobutamine HCl 250 ml @ 10.497 mls/ hr Q24H IV 09/20/18 16:00 10/19/18 15:59 09/22/18 04:02 Dopamine HCl/ Dextrose 250 ml @ 6.56 mls/hr Q24H IV 09/20/18 16:00 10/19/18 15:59 09/22/18 07:41 Furosemide (Lasix) 20 mg BID IV 09/21/18 18:00 10/21/18 17:59 09/22/18 09:06 Heparin Sodium/ Dextrose 500 ml @ 17.58 mls/ hr ADJUST PER PROTOCOL IV 09/21/18 07:15 10/21/18 05:39 09/22/18 07:50 Norepinephrine Bitartrate 8 mg/ Dextrose 254 ml @ 0 mls/hr Q24H IV 09/19/18 03:30 10/19/18 03:29 09/22/18 11:25 Ondansetron HCl (Zofran) 4 mg Q4H PRN IVP Nausea & Vomiting 09/19/18 04:15 10/19/18 04:14 Pantoprazole (Protonix) 40 mg DAILY IVP 09/19/18 09:00 10/19/18 08:59 09/22/18 09:06 Piperacillin Sod/ Tazobactam Sod 4.5 gm/Sodium Chloride 110 ml @ 27.5 mls/hr Q8HR IVPB 09/19/18 06:00 09/26/18 05:59 09/22/18 05:30 Potassium Chloride (K-Dur) 40 meq DAILY ORAL 09/22/18 09:00 10/22/18 08:59 09/22/18 09:06 Vancomycin HCl (Vanco rx to dose) 1 ea DAILY PRN MISC Per rx protocol 09/19/18 03:30 10/19/18 03:29 Vancomycin HCl/ Dextrose 275 ml @ 183.333 mls/hr Q24H IVPB 09/21/18 08:30 09/26/18 08:29 09/22/18 09:05 Alexis Rivera MD Sep 22, 2018 13:44
--- NOTE | 2018-09-22 13:48 | Cardiac Electrophysiology PN ---
Assessment/Plan Assessment/Plan 1. Atrial flutter with rapid ventricular response 140s. HR 100s. Off Coreg for low BP. Had atrial flutter in December 2017 and previous admission also. Consider atrial flutter ablation as out patient. Dig level 0.5. On Dig o.125 daily DC Dopamine 2. 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 Cardiac catheterization by me in December 2017 no CAD. DCed all CHF meds (Cozaar 25 mg daily, Aldactone 12.5 mg daily, and Coreg 3.125 mg b.i.d) Taper off Dopamine and continue Dobutamine 3 mc/min. On Levophed 14 mcg as well 3. 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 15 beats of nonsustained VT. Due to severe non ischemic CMP. Consider ICD specially for EF 15% as out patient of longevity felt > 1 year 5. History of hypertension. 6. Severe MAIK 0.3 7. Dysphagia, S/P PEG 8. History of DVT on heparin drip 9. Bacteremia due to Sepsis/ SIRS. On iv Abx per Dr Nicole MARADIAGA RN and Subjective Subjective In ICU on Levophed 14 mc, Dopamine and Dobutamine 3 mcg and heparin drip. Still in atrial flutter. RN at bedside Objective Last 24 Hour Vital Signs Date Time Temp Pulse Resp B/P (MAP) Pulse Ox O2 Delivery O2 Flow Rate FiO2 09/22/18 12:30 104 22 92/70 (77) 95 09/22/18 12:00 Nasal Cannula 2.0 09/22/18 12:00 98.7 115 20 98/73 (81) 97 09/22/18 11:30 102 33 94/68 (77) 96 09/22/18 11:25 95/69 09/22/18 11:00 100 28 94/73 (80) 96 09/22/18 10:46 Nasal Cannula 2.0 28 09/22/18 10:46 Nasal Cannula 2.0 28 09/22/18 10:30 102 30 98/71 (80) 95 09/22/18 10:00 99 30 99/69 (79) 95 09/22/18 09:30 105 20 90/70 (77) 97 09/22/18 09:05 112 09/22/18 09:00 95 09/22/18 09:00 112 21 92/66 (75) 96 09/22/18 08:30 103 18 94/71 (79) 96 09/22/18 08:00 Nasal Cannula 2.0 09/22/18 08:00 105 09/22/18 08:00 97.9 96 35 89/64 (72) 97 09/22/18 07:41 89/71 09/22/18 07:30 97 29 70/53 (59) 97 09/22/18 07:00 101 19 90/70 (77) 100 09/22/18 07:00 90/70 09/22/18 06:57 100 Nasal Cannula 2.0 28 09/22/18 06:53 100 22 97 Nasal Cannula 2.0 28 09/22/18 06:47 99 25 96 Nasal Cannula 2.0 28 09/22/18 06:30 102 26 90/70 (77) 96 09/22/18 06:00 93/66 09/22/18 06:00 102 24 93/66 (75) 96 09/22/18 05:30 101 21 97/69 (78) 98 09/22/18 05:00 103 32 96/75 (82) 97 09/22/18 05:00 96/75 09/22/18 04:30 103 25 94/71 (79) 96 09/22/18 04:02 97/70 09/22/18 04:00 98.2 103 29 90/63 (72) 97 09/22/18 04:00 90/63 09/22/18 04:00 Nasal Cannula 2.0 09/22/18 03:30 103 27 90/69 (76) 98 09/22/18 03:30 104 24 98 Nasal Cannula 2.0 28 09/22/18 03:25 108 24 98 Nasal Cannula 2.0 28 09/22/18 03:22 110 09/22/18 03:00 101 28 93/77 (82) 99 09/22/18 03:00 93/77 09/22/18 02:30 98 28 87/72 (77) 99 09/22/18 02:00 102 28 89/69 (76) 97 09/22/18 02:00 89/69 09/22/18 01:30 95 28 95/70 (78) 99 09/22/18 01:18 96/72 09/22/18 01:00 109 32 96/72 (80) 98 09/22/18 01:00 96/72 09/22/18 00:30 104 31 94/72 (79) 95 09/22/18 00:00 97.7 102 32 93/73 (80) 99 09/22/18 00:00 93/73 09/22/18 00:00 Nasal Cannula 2.0 09/21/18 23:32 106 09/21/18 23:30 104 28 94/71 (79) 98 09/21/18 23:16 Nasal Cannula 2.0 28 09/21/18 23:16 Nasal Cannula 2.0 28 09/21/18 23:00 96/67 09/21/18 23:00 103 25 96/67 (77) 98 09/21/18 22:30 107 30 96/65 (75) 98 09/21/18 22:00 110 32 96/67 (77) 97 09/21/18 22:00 96/97 09/21/18 21:30 100 28 93/73 (80) 99 09/21/18 21:00 95/71 09/21/18 21:00 108 26 95/71 (79) 98 09/21/18 20:30 101 30 96/71 (79) 98 09/21/18 20:00 98.6 104 29 87/96 (93) 98 09/21/18 20:00 Nasal Cannula 2.0 09/21/18 20:00 87/69 09/21/18 19:44 101 26 100 Nasal Cannula 2.0 28 09/21/18 19:34 105 25 98 Nasal Cannula 2.0 28 09/21/18 19:34 98 Nasal Cannula 2.0 28 09/21/18 19:30 100 32 93/64 (74) 98 09/21/18 19:22 107 09/21/18 19:00 101 24 93/64 (74) 98 09/21/18 18:30 104 25 90/73 (79) 98 09/21/18 18:00 103 24 89/66 (74) 97 09/21/18 17:30 100 25 87/67 (74) 98 09/21/18 17:13 99 22 90/64 (73) 97 09/21/18 17:01 99 39 86/63 (71) 95 09/21/18 17:00 98 43 82/67 (72) 98 09/21/18 16:30 103 25 93/68 (76) 97 09/21/18 16:00 Nasal Cannula 2.0 09/21/18 16:00 99 09/21/18 16:00 98.6 95 24 101/73 (82) 97 09/21/18 15:30 105 25 91/72 (78) 97 09/21/18 15:15 92/73 09/21/18 15:01 Nasal Cannula 1.0 24 09/21/18 15:01 Nasal Cannula 1.0 24 09/21/18 15:00 103 27 92/73 (79) 98 09/21/18 14:30 104 23 95/74 (81) 100 09/21/18 14:00 103 24 92/78 (83) 100 Intake and Output 09/21/18 09/22/18 18:59 06:59 Intake Total 2166.530 ml 1869.004 ml Output Total 725 ml 2445 ml Balance 1441.530 ml -575.996 ml Intake Free Water 300 ml IV Total 1506.530 ml 909.004 ml Tube Feeding 660 ml 660 ml Output Urine Total 725 ml 2445 ml # Bowel Movements 1 Laboratory Tests Test 09/22/18 04:00 09/22/18 07:34 White Blood Count 9.3 K/UL (4.8-10.8) Red Blood Count 3.02 M/UL (4.70-6.10) L Hemoglobin 10.1 G/DL (14.2-18.0) L Hematocrit 32.0 % (42.0-52.0) L Mean Corpuscular Volume 106 FL (80-99) H Mean Corpuscular Hemoglobin 33.6 PG (27.0-31.0) H Mean Corpuscular Hemoglobin Concent 31.7 G/DL (32.0-36.0) L Red Cell Distribution Width 15.1 % (11.6-14.8) H Platelet Count 146 K/UL (150-450) L Mean Platelet Volume 9.1 FL (6.5-10.1) Neutrophils (%) (Auto) 78.2 % (45.0-75.0) H Lymphocytes (%) (Auto) 10.4 % (20.0-45.0) L Monocytes (%) (Auto) 8.2 % (1.0-10.0) Eosinophils (%) (Auto) 2.4 % (0.0-3.0) Basophils (%) (Auto) 0.8 % (0.0-2.0) Activated Partial Thromboplast Time 70 SEC (23-33) H Sodium Level 138 MMOL/L (136-145) Potassium Level 4.1 MMOL/L (3.5-5.1) Chloride Level 106 MMOL/L (98-107) Carbon Dioxide Level 26 MMOL/L (21-32) Anion Gap 6 mmol/L (5-15) Blood Urea Nitrogen 18 mg/dL (7-18) Creatinine 0.9 MG/DL (0.55-1.30) Estimat Glomerular Filtration Rate mL/min (>60) Glucose Level 138 MG/DL (74-106) H Calcium Level 7.9 MG/DL (8.5-10.1) L Phosphorus Level 2.3 MG/DL (2.5-4.9) L Magnesium Level 1.7 MG/DL (1.8-2.4) L Total Bilirubin 1.1 MG/DL (0.2-1.0) H Direct Bilirubin 0.6 MG/DL (0.0-0.3) H Aspartate Amino Transf (AST/SGOT) 17 U/L (15-37) Alanine Aminotransferase (ALT/SGPT) < 6 U/L (12-78) L Alkaline Phosphatase 63 U/L (46-116) Total Protein 5.6 G/DL (6.4-8.2) L Albumin 1.9 G/DL (3.4-5.0) L Vancomycin Level Trough 15.3 ug/mL (5.0-12.0) H Microbiology Date/Time Source Procedure Growth Status 09/21/18 07:00 Sputum Gram Stain Pending Resulted 09/21/18 07:00 Sputum Sputum Culture - Preliminary NORMAL UPPER RESPIRATORY SHERON AT 24 ... Resulted Objective HEAD AND NECK: Face Mask with positive JVD. LUNGS: Coarse rhonchi. CARDIOVASCULAR: Irregular. S1 and S2 with no gallop or murmur. ABDOMEN: Soft.PEG in place EXTREMITIES: No pitting edema. Antonio Conde MD Sep 22, 2018 13:48
[2018-09-22] MEDS ORDERED: D5NS 1000ml IV ONE (14:11)
[2018-09-22] MEDS ORDERED: Tubing IV Secondary IV ONE (14:11)
[2018-09-22] MEDS ORDERED: DOPAmine 400mg/250ml Premix IV SCH (15:30)
--- NOTE | 2018-09-22 16:18 | Hematology/Onc Progress Note ---
Assessment/Plan Assessment/Plan Assessment and Recs: # Acute right leg DVT hx, before was on eliquis, currently is on heparin gtt also with mobile clot --> cards aware from prior admission --> currently on heparin gtt --> ONCE is on coumadin/lovenox, inr goal is 2-3 --> monitor for bleeding # Anemia of chronic disease due to underlying chronic medical issues, multifactorial. --> Anemia w/u has been reviewed. Ferritin at 450. --> hgb goal >7. Transfuse prn. --> No evidence of hemolysis noted --> hgb trend 12-->10.7-->10.1 # Thrombocytopenia - most likely related to PNA infection. 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 CXR has been reviewed. --> pulm eval prn --> on multiple pressors in the icu per cards --> on abx per id # Myocardial infarction. --> Cardiac cath [address] Conde # Atrial flutter with rapid ventricular response (reason for this admission). --> per cards, potential ablation o/p --> potential icd placement --> on heparin gtt, to continue # Psych disorder -- as per psych recs The timing of this note does not necessarily reflect the time of the patient was seen. Greatly appreciate consultation! Subjective Constitutional: Denies: no symptoms, chills, fever, malaise, weakness, other HEENT: Denies: no symptoms, eye pain, blurred vision, tearing, double vision, ear pain, ear discharge, nose pain, nose congestion, throat pain, throat swelling, mouth pain, mouth swelling, other Cardiovascular: Denies: no symptoms, chest pain, edema, irregular heart rate, lightheadedness, palpitations, syncope, other Respiratory: Denies: no symptoms, cough, shortness of breath, SOB with excertion, SOB at rest, sputum, wheezing, other Gastrointestinal/Abdominal: Denies: no symptoms, abdomen distended, abdominal pain, black stools, tarry stools, blood in stool, constipated, diarrhea, difficulty swallowing, nausea, poor appetite, poor fluid intake, rectal bleeding , vomiting, other Genitourinary: Denies: no symptoms, burning, discharge, frequency, flank pain, hematuria, incontinence, pain, urgency, other Neurologic/Psychiatric: Denies: no symptoms, anxiety, depressed, emotional problems, headache, numbness, paresthesia, pre-existing deficit, seizure, tingling, tremors, weakness, other Endocrine: Denies: no symptoms, excessive sweating, flushing, intolerance to cold, intolerance to heat, increased hunger, increased thirst, increased urine, unexplained weight gain, unexplained weight loss, other Allergies: Coded Allergies: No Known Allergies (Unverified , 01/07/18) Subjective Subjective 09/19: was discharged yesterday, now comes back in for hypotension, on dig, and heparin gtt, cards seen 09/21: no events, no fevers or chills, no bleeding, on abx, off pressors, is on heparin gtt 09/22: coming off dopamine, vanc stopped per id, still on zosyn, labs reviewed, by beside and lynne rn Objective Objective Current Medications Medications (Trade) Dose Ordered Sig/Fritz Route PRN Reason Start Time Stop Time Status Last Admin Dose Admin Acetaminophen (Tylenol) 650 mg Q6H PRN GT Mild Pain/Temp > 100.5 09/19/18 03:45 10/19/18 03:44 09/21/18 08:07 Albuterol/ Ipratropium (Albuterol/ Ipratropium) 3 ml Q4H PRN HHN Shortness of Breath 09/19/18 03:30 09/24/18 03:29 Albuterol/ Ipratropium (Albuterol/ Ipratropium) 3 ml Q4HRT HHN 09/19/18 11:00 09/24/18 10:59 09/22/18 06:58 Aspirin (ASA) 81 mg DAILY GT 09/19/18 09:00 10/19/18 08:59 09/22/18 09:06 Chlorhexidine Gluconate (Nadeen-Hex 2%) 1 applic DAILY@2000 TOPIC 09/19/18 20:00 10/19/18 19:59 09/21/18 19:58 Digoxin (Lanoxin) 0.125 mg DAILY PEG 09/20/18 09:00 10/20/18 08:59 09/22/18 09:05 Dobutamine HCl 250 ml @ 10.497 mls/ hr Q24H IV 09/20/18 16:00 10/19/18 15:59 09/22/18 04:02 Dopamine HCl/ Dextrose 250 ml @ 0 mls/hr Q24H IV 09/22/18 15:30 10/22/18 15:29 09/22/18 15:34 Furosemide (Lasix) 20 mg BID IV 09/21/18 18:00 10/21/18 17:59 09/22/18 09:06 Heparin Sodium/ Dextrose 500 ml @ 17.58 mls/ hr ADJUST PER PROTOCOL IV 09/21/18 07:15 10/21/18 05:39 09/22/18 07:50 Norepinephrine Bitartrate 8 mg/ Dextrose 254 ml @ 0 mls/hr Q24H IV 09/19/18 03:30 10/19/18 03:29 09/22/18 11:25 Ondansetron HCl (Zofran) 4 mg Q4H PRN IVP Nausea & Vomiting 09/19/18 04:15 10/19/18 04:14 Pantoprazole (Protonix) 40 mg DAILY IVP 09/19/18 09:00 10/19/18 08:59 09/22/18 09:06 Piperacillin Sod/ Tazobactam Sod 4.5 gm/Sodium Chloride 110 ml @ 27.5 mls/hr Q8HR IVPB 09/19/18 06:00 09/26/18 05:59 09/22/18 14:29 Potassium Chloride (K-Dur) 40 meq DAILY ORAL 09/22/18 09:00 10/22/18 08:59 09/22/18 09:06 Last 24 Hour Vital Signs Date Time Temp Pulse Resp B/P (MAP) Pulse Ox O2 Delivery O2 Flow Rate FiO2 09/22/18 15:34 90/64 09/22/18 15:17 Nasal Cannula 2.0 28 09/22/18 15:17 Nasal Cannula 2.0 28 09/22/18 12:30 104 22 92/70 (77) 95 09/22/18 12:00 Nasal Cannula 2.0 09/22/18 12:00 98.7 115 20 98/73 (81) 97 09/22/18 11:30 102 33 94/68 (77) 96 09/22/18 11:25 95/69 09/22/18 11:00 100 28 94/73 (80) 96 09/22/18 10:46 Nasal Cannula 2.0 28 09/22/18 10:46 Nasal Cannula 2.0 28 09/22/18 10:30 102 30 98/71 (80) 95 09/22/18 10:00 99 30 99/69 (79) 95 09/22/18 09:30 105 20 90/70 (77) 97 09/22/18 09:05 112 09/22/18 09:00 95 09/22/18 09:00 112 21 92/66 (75) 96 09/22/18 09:00 91/72 09/22/18 08:30 103 18 94/71 (79) 96 09/22/18 08:00 Nasal Cannula 2.0 09/22/18 08:00 105 09/22/18 08:00 98/73 09/22/18 08:00 98/73 09/22/18 08:00 97.9 96 35 89/64 (72) 97 09/22/18 07:41 89/71 09/22/18 07:30 97 29 70/53 (59) 97 09/22/18 07:00 101 19 90/70 (77) 100 09/22/18 07:00 90/70 09/22/18 06:57 100 Nasal Cannula 2.0 28 09/22/18 06:53 100 22 97 Nasal Cannula 2.0 28 09/22/18 06:47 99 25 96 Nasal Cannula 2.0 28 09/22/18 06:30 102 26 90/70 (77) 96 09/22/18 06:00 93/66 09/22/18 06:00 102 24 93/66 (75) 96 09/22/18 05:30 101 21 97/69 (78) 98 09/22/18 05:00 103 32 96/75 (82) 97 09/22/18 05:00 96/75 09/22/18 04:30 103 25 94/71 (79) 96 09/22/18 04:02 97/70 09/22/18 04:00 98.2 103 29 90/63 (72) 97 09/22/18 04:00 90/63 09/22/18 04:00 Nasal Cannula 2.0 09/22/18 03:30 103 27 90/69 (76) 98 09/22/18 03:30 104 24 98 Nasal Cannula 2.0 28 09/22/18 03:25 108 24 98 Nasal Cannula 2.0 28 09/22/18 03:22 110 09/22/18 03:00 101 28 93/77 (82) 99 09/22/18 03:00 93/77 09/22/18 02:30 98 28 87/72 (77) 99 09/22/18 02:00 102 28 89/69 (76) 97 09/22/18 02:00 89/69 09/22/18 01:30 95 28 95/70 (78) 99 09/22/18 01:18 96/72 09/22/18 01:00 109 32 96/72 (80) 98 09/22/18 01:00 96/72 09/22/18 00:30 104 31 94/72 (79) 95 09/22/18 00:00 97.7 102 32 93/73 (80) 99 09/22/18 00:00 93/73 09/22/18 00:00 Nasal Cannula 2.0 09/21/18 23:32 106 09/21/18 23:30 104 28 94/71 (79) 98 09/21/18 23:16 Nasal Cannula 2.0 28 09/21/18 23:16 Nasal Cannula 2.0 28 09/21/18 23:00 96/67 09/21/18 23:00 103 25 96/67 (77) 98 09/21/18 22:30 107 30 96/65 (75) 98 09/21/18 22:00 110 32 96/67 (77) 97 09/21/18 22:00 96/97 09/21/18 21:30 100 28 93/73 (80) 99 8 21:00 95/71 8/19 21:00 108 26 95/71 (79) 98 8 20:30 101 30 96/71 (79) 98 8 20:00 98.6 104 29 87/96 (93) 98 09/21/18 20:00 Nasal Cannula 2.0 09/21/18 20:00 87/69 09/21/18 19:44 101 26 100 Nasal Cannula 2.0 28 09/21/18 19:34 105 25 98 Nasal Cannula 2.0 28 09/21/18 19:34 98 Nasal Cannula 2.0 28 09/21/18 19:30 100 32 93/64 (74) 98 09/21/18 19:22 107 09/21/18 19:00 101 24 93/64 (74) 98 09/21/18 18:30 104 25 90/73 (79) 98 09/21/18 18:00 103 24 89/66 (74) 97 09/21/18 17:30 100 25 87/67 (74) 98 09/21/18 17:13 99 22 90/64 (73) 97 09/21/18 17:01 99 39 86/63 (71) 95 09/21/18 17:00 98 43 82/67 (72) 98 09/21/18 16:30 103 25 93/68 (76) 97 09/21/18 16:00 Nasal Cannula 2.0 09/21/18 16:00 99 09/21/18 16:00 98.6 95 24 101/73 (82) 97 09/21/18 15:30 105 25 91/72 (78) 97 19 15:15 92/73 09/21/18 15:01 Nasal Cannula 1.0 24 09/21/18 15:01 Nasal Cannula 1.0 24 09/21/18 15:00 103 27 92/73 (79) 98 09/21/18 14:30 104 23 95/74 (81) 100 09/21/18 14:00 103 24 92/78 (83) 100 09/21/18 13:31 103 22 93/75 (81) 97 09/21/18 13:30 107 22 89/70 (76) 97 09/21/18 13:00 103 24 100/70 (80) 100 09/21/18 12:30 115 20 117/97 (104) 98 09/21/18 12:00 96 09/21/18 12:00 97.8 120 20 94/78 (83) 100 09/21/18 12:00 Nasal Cannula 2.0 09/21/18 11:30 99 22 95/80 (85) 98 09/21/18 11:00 98 22 93/74 (80) 98 09/21/18 10:48 97 21 100 Nasal Cannula 1.0 24 09/21/18 10:47 98 21 100 Nasal Cannula 1.0 24 09/21/18 10:30 98 40 94/73 (80) 98 09/21/18 10:00 104 36 96/75 (82) 98 09/21/18 09:30 94 52 99/71 (80) 98 09/21/18 09:00 105 51 93/74 (80) 97 09/21/18 08:37 98.8 09/21/18 08:30 106 22 96/76 (83) 100 09/21/18 08:08 108 09/21/18 08:00 98.8 106 25 98/73 (81) 99 09/21/18 08:00 107 09/21/18 08:00 Nasal Cannula 2.0 09/21/18 07:30 107 25 101/82 (88) 99 09/21/18 07:00 105 26 98/79 (85) 100 09/21/18 06:55 98 24 100 Nasal Cannula 2.0 28 09/21/18 06:48 100 Nasal Cannula 2.0 28 09/21/18 06:47 93 28 100 Nasal Cannula 2.0 28 09/21/18 06:30 99 27 99/76 (84) 98 09/21/18 06:00 107 27 97/73 (81) 99 09/21/18 05:30 97 25 98/81 (87) 100 09/21/18 05:00 102 29 96/81 (86) 100 09/21/18 04:30 104 25 94/63 (73) 100 09/21/18 04:02 67/47 09/21/18 04:01 97/98 09/21/18 04:00 98.6 109 21 86/72 (77) 100 09/21/18 04:00 Nasal Cannula 2.0 09/21/18 04:00 100 09/21/18 03:30 111 22 97/68 (78) 98 09/21/18 03:25 111 20 100 Nasal Cannula 2.0 09/21/18 03:15 93 19 98 Nasal Cannula 2.0 09/21/18 03:00 101 26 99/72 (81) 97 09/21/18 02:30 92 23 106/76 (86) 100 09/21/18 02:00 84 20 91/65 (74) 100 09/21/18 01:30 85 22 91/76 (81) 100 09/21/18 01:03 94 22 100 Nasal Cannula 2.0 09/21/18 01:00 90 22 95/76 (82) 100 09/21/18 00:49 94 19 100 Nasal Cannula 2.0 09/21/18 00:30 84 24 100/77 (85) 100 09/21/18 00:07 83 09/21/18 00:00 82 09/21/18 00:00 98.5 85 20 101/69 (80) 100 09/21/18 00:00 Nasal Cannula 2.0 09/20/18 23:39 81 38 87/64 (72) 100 09/20/18 23:30 69 40 76/60 (65) 100 09/20/18 23:00 94/72 09/20/18 23:00 102 32 94/73 (80) 100 09/20/18 22:30 98 28 91/72 (78) 100 09/20/18 22:00 110 25 92/74 (80) 100 09/20/18 21:30 109 39 95/72 (80) 100 09/20/18 21:00 108 33 97/72 (80) 100 09/20/18 20:30 83 17 88/66 (73) 100 09/20/18 20:00 84 09/20/18 20:00 98.6 86 32 83/67 (72) 99 09/20/18 20:00 Nasal Cannula 2.0 09/20/18 19:38 84 18 100 Nasal Cannula 2.0 09/20/18 19:30 79 22 95/68 (77) 100 09/20/18 19:29 100 Nasal Cannula 2.0 09/20/18 19:28 76 24 100 Nasal Cannula 2.0 09/20/18 19:00 84 22 90/68 (75) 100 09/20/18 19:00 90/68 09/20/18 19:00 90/09/20/18 18:30 86 29 91/65 (74) 09/20/18 18:00 93/72 09/20/18 18:00 93/72 09/20/18 18:00 77 35 93/72 (79) 99 09/20/18 17:30 78 23 93/72 (79) 99 09/20/18 17:00 102/72 09/20/18 17:00 100/72 09/20/18 17:00 102 22 102/71 (81) 100 09/20/18 16:30 110 27 98/79 (85) 100 Intake and Output 09/21/18 09/22/18 19:00 07:00 Intake Total 2217.920 ml 1838.974 ml Output Total 710 ml 2550 ml Balance 1507.920 ml -711.026 ml Intake Free Water 30 ml 270 ml IV Total 1527.920 ml 908.974 ml Tube Feeding 660 ml 660 ml Output Urine Total 710 ml 2550 ml # Bowel Movements 1 Labs Test 09/20/18 04:00 09/21/18 04:25 09/21/18 11:45 09/22/18 04:00 White Blood Count 7.4 K/UL (4.8-10.8) 6.9 K/UL (4.8-10.8) 9.3 K/UL (4.8-10.8) Red Blood Count 3.06 M/UL (4.70-6.10) 3.16 M/UL (4.70-6.10) 3.02 M/UL (4.70-6.10) Hemoglobin 10.2 G/DL (14.2-18.0) 10.7 G/DL (14.2-18.0) 10.1 G/DL (14.2-18.0) Hematocrit 32.8 % (42.0-52.0) 33.4 % (42.0-52.0) 32.0 % (42.0-52.0) Mean Corpuscular Volume 107 FL (80-99) 106 FL (80-99) 106 FL (80-99) Mean Corpuscular Hemoglobin 33.4 PG (27.0-31.0) 33.9 PG (27.0-31.0) 33.6 PG (27.0-31.0) Mean Corpuscular Hemoglobin Concent 31.2 G/DL (32.0-36.0) 32.1 G/DL (32.0-36.0) 31.7 G/DL (32.0-36.0) Red Cell Distribution Width 15.3 % (11.6-14.8) 14.5 % (11.6-14.8) 15.1 % (11.6-14.8) Platelet Count 143 K/UL (150-450) 140 K/UL (150-450) 146 K/UL (150-450) Mean Platelet Volume 9.4 FL (6.5-10.1) 9.6 FL (6.5-10.1) 9.1 FL (6.5-10.1) Neutrophils (%) (Auto) 76.0 % (45.0-75.0) 76.4 % (45.0-75.0) 78.2 % (45.0-75.0) Lymphocytes (%) (Auto) 14.4 % (20.0-45.0) 13.7 % (20.0-45.0) 10.4 % (20.0-45.0) Monocytes (%) (Auto) 7.0 % (1.0-10.0) 7.0 % (1.0-10.0) 8.2 % (1.0-10.0) Eosinophils (%) (Auto) 1.5 % (0.0-3.0) 1.9 % (0.0-3.0) 2.4 % (0.0-3.0) Basophils (%) (Auto) 1.1 % (0.0-2.0) 1.0 % (0.0-2.0) 0.8 % (0.0-2.0) Activated Partial Thromboplast Time 87 SEC (23-33) 108 SEC (23-33) 71 SEC (23-33) 70 SEC (23-33) Sodium Level 140 MMOL/L (136-145) 137 MMOL/L (136-145) 138 MMOL/L (136-145) Potassium Level 3.5 MMOL/L (3.5-5.1) 3.4 MMOL/L (3.5-5.1) 4.1 MMOL/L (3.5-5.1) Chloride Level 107 MMOL/L (98-107) 107 MMOL/L (98-107) 106 MMOL/L (98-107) Carbon Dioxide Level 26 MMOL/L (21-32) 24 MMOL/L (21-32) 26 MMOL/L (21-32) Anion Gap 8 mmol/L (5-15) 6 mmol/L (5-15) 6 mmol/L (5-15) Blood Urea Nitrogen 25 mg/dL (7-18) 21 mg/dL (7-18) 18 mg/dL (7-18) Creatinine 1.1 MG/DL (0.55-1.30) 1.0 MG/DL (0.55-1.30) 0.9 MG/DL (0.55-1.30) Estimat Glomerular Filtration Rate mL/min (>60) mL/min (>60) mL/min (>60) Glucose Level 197 MG/DL (74-106) 171 MG/DL (74-106) 138 MG/DL (74-106) Calcium Level 7.9 MG/DL (8.5-10.1) 7.5 MG/DL (8.5-10.1) 7.9 MG/DL (8.5-10.1) Phosphorus Level 2.9 MG/DL (2.5-4.9) 2.6 MG/DL (2.5-4.9) 2.3 MG/DL (2.5-4.9) Magnesium Level 1.7 MG/DL (1.8-2.4) 2.0 MG/DL (1.8-2.4) 1.7 MG/DL (1.8-2.4) Total Bilirubin 1.3 MG/DL (0.2-1.0) 1.1 MG/DL (0.2-1.0) 1.1 MG/DL (0.2-1.0) Direct Bilirubin 0.6 MG/DL (0.0-0.3) 0.6 MG/DL (0.0-0.3) 0.6 MG/DL (0.0-0.3) Aspartate Amino Transf (AST/SGOT) 16 U/L (15-37) 15 U/L (15-37) 17 U/L (15-37) Alanine Aminotransferase (ALT/SGPT) < 6 U/L (12-78) < 6 U/L (12-78) < 6 U/L (12-78) Alkaline Phosphatase 57 U/L (46-116) 57 U/L (46-116) 63 U/L (46-116) Total Protein 5.8 G/DL (6.4-8.2) 6.0 G/DL (6.4-8.2) 5.6 G/DL (6.4-8.2) Albumin 2.0 G/DL (3.4-5.0) 2.0 G/DL (3.4-5.0) 1.9 G/DL (3.4-5.0) Globulin 3.8 g/dL Albumin/Globulin Ratio 0.5 (1.0-2.7) Vitamin B12 Level 496 PG/ML (193-986) Folate 2.5 NG/ML (8.6-58.9) Digoxin Level 1.6 NG/ML (0.5-2.0) Test 09/22/18 07:34 Vancomycin Level Trough 15.3 ug/mL (5.0-12.0) Height (Feet): 5 Height (Inches): 8.00 Weight (Pounds): 127 Objective HEENT: + Face Mask LUNGS: Coarse rhonchi b/l CV: Irregular. S1 and S2 with no gallop or murmur. ABD: Soft, + PEG in place EXT: No pitting edema. Bruce Loya MD Sep 22, 2018 16:18
--- NOTE | 2018-09-22 17:03 | Pulmonolgy Critical Care Note ---
Critical Care - Asmt/Plan Assessment/Plan: Pulmonary CCM Progress Note HPI Patient is a 77-year-old male recently discharged from the hospital, s/p G-tube for Failure to thrive, has a history of atrial fibrillation/DVT on Eliquis, CHF with EF 20%, CAD with previous NSTEMI, Aortic stenosis, Mitral Regurgitation, Chronic anemia, thromocytopenia, previous admissions for pneumonia, presents from nursing facility for altered mental status and hypotension, decubitus ulcers, recent positive blood culture with staph simulans. At the [facility] was noted to have blood pressure in the mid 70s, was confused, oriented to self only. There is no report of trauma. The patient has no complaints at this time but is oriented to self only cannot provide any significant history. On pressors prn, on heparin gtt PMH: Failure to thrive, has a history of atrial fibrillation/DVT on Eliquis, CHF with EF 20%, CAD with previous NSTEMI, Aortic stenosis, Mitral Regurgitation , Hypertension, Chronic anemia, thromocytopenia, previous admissions for pneumonia, thrombocytopenia presents from nursing facility for altered mental status and hypotension, decubitus ulcers, recent positive blood culture with staph simulans Less SOB, remains on pressors, on heparin gtt Allergies: No documented allergies Allergies: No Known Allergies All Other Systems: limited - Due to altered mental status on presentation Physical Exam Vital Signs Noted On Levophed General: Chronically ill, wasted, no acute distress,RIJ line HEENT: NC/AT. EOMI. PERRLA, pupils equal and reactive bilaterally. No obvious facial trauma. Dry mucous membranes Neck: Supple, trachea midline Chest Wall: No tenderness, no deformity Cardiovascular: Irregularly irregular rhythm, regular rate, HS1, HS2, ESM Resp: Normal work of breathing. CTAB Abdomen: Abdomen is soft, nondistended. Nontender Skin: Multiple ulcers over the back and buttock n MSK: Appears frail and somewhat cachectic. Moving all extremities though diminished strength in all limbs Neuro: Awake, confused, oriented to self only. No focal signs, no seizures EKG: Rate: normal Rhythm: other - Atrial fibrillation ST Segments: no acute changes CXR: Interim placement right jugular central venous catheter, tip of which projects at the level of the high right atrium. Again demonstrated is bilateral interstitial and airspace edema, bilateral pleural effusions, and cardiomegaly. There is no evidence of pneumothorax. CT Head: No acute intracranial findings. Atrophy. Chronic-appearing ischemic changes and encephalomalacia. Labs: Noted Assessment Severe Congestive Heart Failure Bilateral pleural effusions Hypotension Probable Sepsis Possible pneumonia Decubitus ulcers AMS Failure to thrive, has a history of atrial fibrillation/DVT on Eliquis Non Ischemic [employer], CHF with EF 20% CAD with previous NSTEMI - currently elevated Troponin Aortic stenosis, Mitral Regurgitation H/o hypertension Chronic anemia, thromocytopenia Previous admissions for pneumonia Plan IV Antibiotics Levophed Aspiration Precautions Heparin gtt - hold NOACS for now Consider thoracentesis once more stable ASA BiPAP PRN Duonebs PRN/CPT Lasix PRN Monitor Glucose Monitor labs PPX Critical Care - Objective Last 24 Hour Vital Signs Date Time Temp Pulse Resp B/P (MAP) Pulse Ox O2 Delivery O2 Flow Rate FiO2 09/22/18 16:45 102 23 90/72 (78) 98 09/22/18 16:30 102 24 98/67 (77) 100 09/22/18 16:15 106 36 94/69 (77) 99 09/22/18 16:15 92/70 09/22/18 16:00 98.4 99 24 92/70 (77) 99 09/22/18 16:00 Nasal Cannula 2.0 09/22/18 16:00 89/59 09/22/18 16:00 92/70 09/22/18 15:45 100 22 89/59 (69) 99 09/22/18 15:45 90/09/22/18 15:34 90/64 09/22/18 15:30 97 31 90/66 (74) 100 09/22/18 15:20 90/09/22/18 15:17 Nasal Cannula 2.0 28 09/22/18 15:17 Nasal Cannula 2.0 28 09/22/18 15:00 90/64 09/22/18 15:00 90/09/22/18 15:00 114 35 99/69 (79) 95 09/22/18 14:30 104 34 88/74 (79) 96 09/22/18 14:00 96/09/22/18 14:00 96/09/22/18 14:00 108 25 95/78 (84) 96 09/22/18 13:30 103 31 91/70 (77) 95 09/22/18 13:00 101 21 86/70 (75) 95 09/22/18 13:00 94/75 09/22/18 13:00 92/70 09/22/18 12:30 104 22 92/70 (77) 95 09/22/18 12:00 Nasal Cannula 2.0 09/22/18 12:00 98.7 115 20 98/73 (81) 97 09/22/18 12:00 90/74 09/22/18 12:00 90/74 09/22/18 11:30 102 33 94/68 (77) 96 09/22/18 11:25 95/69 09/22/18 11:01 105/70 09/22/18 11:01 95/69 09/22/18 11:00 100 28 94/73 (80) 96 09/22/18 10:46 Nasal Cannula 2.0 28 09/22/18 10:46 Nasal Cannula 2.0 28 09/22/18 10:30 102 30 98/71 (80) 95 09/22/18 10:00 99 30 99/69 (79) 95 09/22/18 10:00 99/69 09/22/18 10:00 99/69 09/22/18 09:30 105 20 90/70 (77) 97 09/22/18 09:05 112 09/22/18 09:00 95 09/22/18 09:00 112 21 92/66 (75) 96 09/22/18 09:00 91/72 09/22/18 09:00 91/72 09/22/18 08:30 103 18 94/71 (79) 96 09/22/18 08:00 Nasal Cannula 2.0 09/22/18 08:00 105 09/22/18 08:00 98/73 09/22/18 08:00 98/73 09/22/18 08:00 97.9 96 35 89/64 (72) 97 09/22/18 07:41 89/71 09/22/18 07:30 97 29 70/53 (59) 97 09/22/18 07:00 101 19 90/70 (77) 100 09/22/18 07:00 90/70 09/22/18 06:57 100 Nasal Cannula 2.0 28 09/22/18 06:53 100 22 97 Nasal Cannula 2.0 28 09/22/18 06:47 99 25 96 Nasal Cannula 2.0 28 09/22/18 06:30 102 26 90/70 (77) 96 09/22/18 06:00 93/66 09/22/18 06:00 102 24 93/66 (75) 96 09/22/18 05:30 101 21 97/69 (78) 98 09/22/18 05:00 103 32 96/75 (82) 97 09/22/18 05:00 96/75 09/22/18 04:30 103 25 94/71 (79) 96 09/22/18 04:02 97/70 09/22/18 04:00 98.2 103 29 90/63 (72) 97 09/22/18 04:00 90/63 09/22/18 04:00 Nasal Cannula 2.0 09/22/18 03:30 103 27 90/69 (76) 98 09/22/18 03:30 104 24 98 Nasal Cannula 2.0 28 09/22/18 03:25 108 24 98 Nasal Cannula 2.0 28 09/22/18 03:22 110 09/22/18 03:00 101 28 93/77 (82) 99 09/22/18 03:00 93/77 09/22/18 02:30 98 28 87/72 (77) 99 09/22/18 02:00 102 28 89/69 (76) 97 09/22/18 02:00 89/69 09/22/18 01:30 95 28 95/70 (78) 99 09/22/18 01:18 96/72 09/22/18 01:00 109 32 96/72 (80) 98 09/22/18 01:00 96/72 09/22/18 00:30 104 31 94/72 (79) 95 09/22/18 00:00 97.7 102 32 93/73 (80) 99 09/22/18 00:00 93/73 09/22/18 00:00 Nasal Cannula 2.0 09/21/18 23:32 106 09/21/18 23:30 104 28 94/71 (79) 98 09/21/18 23:16 Nasal Cannula 2.0 28 09/21/18 23:16 Nasal Cannula 2.0 28 09/21/18 23:00 96/67 09/21/18 23:00 103 25 96/67 (77) 98 09/21/18 22:30 107 30 96/65 (75) 98 09/21/18 22:00 110 32 96/67 (77) 97 09/21/18 22:00 96/97 09/21/18 21:30 100 28 93/73 (80) 99 09/21/18 21:00 95/71 09/21/18 21:00 108 26 95/71 (79) 98 09/21/18 20:30 101 30 96/71 (79) 98 09/21/18 20:00 98.6 104 29 87/96 (93) 98 09/21/18 20:00 Nasal Cannula 2.0 09/21/18 20:00 87/69 09/21/18 19:44 101 26 100 Nasal Cannula 2.0 28 09/21/18 19:34 105 25 98 Nasal Cannula 2.0 28 09/21/18 19:34 98 Nasal Cannula 2.0 28 09/21/18 19:30 100 32 93/64 (74) 98 09/21/18 19:22 107 09/21/18 19:00 101 24 93/64 (74) 98 09/21/18 18:30 104 25 90/73 (79) 98 09/21/18 18:00 103 24 89/66 (74) 97 09/21/18 17:30 100 25 87/67 (74) 98 09/21/18 17:13 99 22 90/64 (73) 97 Micro: Microbiology Date/Time Source Procedure Growth Status 09/21/18 07:00 Sputum Gram Stain - Final Resulted 09/21/18 07:00 Sputum Sputum Culture - Preliminary NORMAL UPPER RESPIRATORY SHERON AT 24 ... Resulted Accucheck: 146 Critical Care - Subjective ROS Limited/Unobtainable: No FI02: 28 Sputum Amount: None Tube Feeding Amount: 50 I&O: Intake and Output 09/21/18 09/22/18 19:00 07:00 Intake Total 2217.920 ml 1838.974 ml Output Total 710 ml 2550 ml Balance 1507.920 ml -711.026 ml Intake Free Water 30 ml 270 ml IV Total 1527.920 ml 908.974 ml Tube Feeding 660 ml 660 ml Output Urine Total 710 ml 2550 ml # Bowel Movements 1 Robbin Diana MD Sep 22, 2018 17:03
[2018-09-22] MEDS: Dyna-Hex 2% Top Sol 2oz TOPIC SCH (20:23)
[2018-09-22] MEDS: Acetaminophen 650mg/20.3ml GT PRN (21:22)
--- NOTE | 2018-09-22 23:04 | General Progress Note ---
Assessment/Plan Problem List: (1) Atrial fibrillation ICD Codes: I48.91 - Unspecified atrial fibrillation SNOMED: 11801059 (2) Anemia ICD Codes: D64.9 - Anemia, unspecified SNOMED: 680250682 (3) Severe protein-calorie malnutrition ICD Codes: E43 - Unspecified severe protein-calorie malnutrition SNOMED: 186186318, 969533191, 801770373 (4) Encounter for PEG (percutaneous endoscopic gastrostomy) ICD Codes: Z43.1 - Encounter for attention to gastrostomy SNOMED: 139550270, 244493595 (5) Altered level of consciousness ICD Codes: R40.4 - Transient alteration of awareness SNOMED: 4484334 (6) Hypotension ICD Codes: I95.9 - Hypotension, unspecified SNOMED: 95335575 Status: unchanged Assessment/Plan: a fib w rvr peg hypotension reviewed chart and labs and meds positive bllod cx reviewed chart vitals stable septic shock resp insuff on pressors Subjective ROS Limited/Unobtainable: Yes Allergies: Coded Allergies: No Known Allergies (Unverified , 01/07/18) Objective Last 24 Hour Vital Signs Date Time Temp Pulse Resp B/P (MAP) Pulse Ox O2 Delivery O2 Flow Rate FiO2 09/22/18 22:21 Nasal Cannula 09/22/18 22:20 137 33 96 Nasal Cannula 4.0 36 09/22/18 20:23 95/72 09/22/18 19:44 105 24 97 Nasal Cannula 3.0 32 09/22/18 19:34 97 Nasal Cannula 3.0 32 09/22/18 19:32 114 24 96 Nasal Cannula 3.0 32 09/22/18 19:00 111 31 94/71 (79) 97 09/22/18 19:00 95/73 09/22/18 19:00 95/73 09/22/18 18:30 106 28 93/67 (76) 98 09/22/18 18:00 9009/22/18 18:00 09/22/18 18:00 112 27 89/70 (76) 97 09/22/18 17:30 103 27 91/69 (76) 97 09/22/18 17:30 90/09/22/18 17:00 100 28 89/67 (74) 98 8/5/19 17:00 09/22/18 17:00 /09/22/18 16:45 102 23 90/72 (78) 98 09/22/18 16:45 89/09/22/18 16:30 90/09/22/18 16:30 102 24 98/67 (77) 100 09/22/18 16:15 106 36 94/69 (77) 99 09/22/18 16:15 92/70 09/22/18 16:00 98.4 99 24 92/70 (77) 99 09/22/18 16:00 123 09/22/18 16:00 Nasal Cannula 2.0 09/22/18 16:00 89/09/22/18 16:00 92/09/22/18 15:45 100 22 89/59 (69) 99 09/22/18 15:45 09/22/18 15:34 /09/22/18 15:30 97 31 90/ (74) 100 09/22/18 15:20 /09/22/18 15:17 Nasal Cannula 2.0 28 09/22/18 15:17 Nasal Cannula 2.0 28 09/22/18 15:00 90/09/22/18 15:00 /09/22/18 15:00 114 35 99/69 (79) 95 09/22/18 14:30 104 34 88/74 (79) 96 09/22/18 14:00 96/77 09/22/18 14:00 96/77 09/22/18 14:00 108 25 95/78 (84) 96 09/22/18 13:30 103 31 91/70 (77) 95 09/22/18 13:00 101 21 86/70 (75) 95 09/22/18 13:00 94/75 09/22/18 13:00 92/70 09/22/18 12:30 104 22 92/70 (77) 95 09/22/18 12:00 Nasal Cannula 2.0 09/22/18 12:00 99 09/22/18 12:00 98.7 115 20 98/73 (81) 97 09/22/18 12:00 90/09/22/18 12:00 90/09/22/18 11:30 102 33 94/68 (77) 96 09/22/18 11:25 95/69 09/22/18 11:01 105/70 09/22/18 11:01 95/69 09/22/18 11:00 100 28 94/73 (80) 96 09/22/18 10:46 Nasal Cannula 2.0 28 09/22/18 10:46 Nasal Cannula 2.0 28 09/22/18 10:30 102 30 98/71 (80) 95 09/22/18 10:00 99 30 99/69 (79) 95 09/22/18 10:00 99/69 09/22/18 10:00 99/69 09/22/18 09:30 105 20 90/70 (77) 97 09/22/18 09:05 112 09/22/18 09:00 95 09/22/18 09:00 112 21 92/66 (75) 96 09/22/18 09:00 91/72 09/22/18 09:00 91/72 09/22/18 08:30 103 18 94/71 (79) 96 09/22/18 08:00 Nasal Cannula 2.0 09/22/18 08:00 105 09/22/18 08:00 98/73 09/22/18 08:00 98/73 09/22/18 08:00 97.9 96 35 89/64 (72) 97 09/22/18 07:41 89/71 09/22/18 07:30 97 29 70/53 (59) 97 09/22/18 07:00 101 19 90/70 (77) 100 09/22/18 07:00 90/70 09/22/18 06:57 100 Nasal Cannula 2.0 28 09/22/18 06:53 100 22 97 Nasal Cannula 2.0 28 09/22/18 06:47 99 25 96 Nasal Cannula 2.0 28 09/22/18 06:30 102 26 90/70 (77) 96 09/22/18 06:00 93/66 09/22/18 06:00 102 24 93/66 (75) 96 09/22/18 05:30 101 21 97/69 (78) 98 09/22/18 05:00 103 32 96/75 (82) 97 09/22/18 05:00 96/75 09/22/18 04:30 103 25 94/71 (79) 96 09/22/18 04:02 97/70 09/22/18 04:00 98.2 103 29 90/63 (72) 97 09/22/18 04:00 90/63 09/22/18 04:00 Nasal Cannula 2.0 09/22/18 03:30 103 27 90/69 (76) 98 09/22/18 03:30 104 24 98 Nasal Cannula 2.0 28 09/22/18 03:25 108 24 98 Nasal Cannula 2.0 28 09/22/18 03:22 110 09/22/18 03:00 101 28 93/77 (82) 99 09/22/18 03:00 93/77 09/22/18 02:30 98 28 87/72 (77) 99 09/22/18 02:00 102 28 89/69 (76) 97 09/22/18 02:00 89/69 09/22/18 01:30 95 28 95/70 (78) 99 09/22/18 01:18 96/72 09/22/18 01:00 109 32 96/72 (80) 98 09/22/18 01:00 96/72 09/22/18 00:30 104 31 94/72 (79) 95 09/22/18 00:00 97.7 102 32 93/73 (80) 99 09/22/18 00:00 93/73 09/22/18 00:00 Nasal Cannula 2.0 09/21/18 23:32 106 09/21/18 23:30 104 28 94/71 (79) 98 09/21/18 23:16 Nasal Cannula 2.0 28 09/21/18 23:16 Nasal Cannula 2.0 28 Intake and Output 09/21/18 09/22/18 19:00 07:00 Intake Total 2217.920 ml 1838.974 ml Output Total 710 ml 2550 ml Balance 1507.920 ml -711.026 ml Intake Free Water 30 ml 270 ml IV Total 1527.920 ml 908.974 ml Tube Feeding 660 ml 660 ml Output Urine Total 710 ml 2550 ml # Bowel Movements 1 Laboratory Tests 09/22/18 04:00: White Blood Count 9.3, Red Blood Count 3.02L, Hemoglobin 10.1L, Hematocrit 32.0L , Mean Corpuscular Volume 106H, Mean Corpuscular Hemoglobin 33.6H, Mean Corpuscular Hemoglobin Concent 31.7L, Red Cell Distribution Width 15.1H, Platelet Count 146L, Mean Platelet Volume 9.1, Neutrophils (%) (Auto) 78.2H, Lymphocytes (%) (Auto) 10.4L, Monocytes (%) (Auto) 8.2, Eosinophils (%) (Auto) 2.4, Basophils (%) (Auto) 0.8, Activated Partial Thromboplast Time 70H, Sodium Level 138, Potassium Level 4.1, Chloride Level 106, Carbon Dioxide Level 26, Anion Gap 6, Blood Urea Nitrogen 18, Creatinine 0.9, Estimat Glomerular Filtration Rate , Glucose Level 138H, Calcium Level 7.9L, Phosphorus Level 2.3L , Magnesium Level 1.7L, Total Bilirubin 1.1H, Direct Bilirubin 0.6H, Aspartate Amino Transf (AST/SGOT) 17, Alanine Aminotransferase (ALT/SGPT) < 6L, Alkaline Phosphatase 63, Total Protein 5.6L, Albumin 1.9L 09/22/18 07:34: Vancomycin Level Trough 15.3H 09/22/18 21:44: Arterial Blood pH 7.508H, Arterial Blood Partial Pressure CO2 30.8L, Arterial Blood Partial Pressure O2 59.5L, Arterial Blood HCO3 23.9, Arterial Blood Oxygen Saturation 92.5L, Arterial Blood Base Excess 1.4, Asad Test N/a Height (Feet): 5 Height (Inches): 8.00 Weight (Pounds): 127 General Appearance: lethargic, confused Neck: normal alignment Inocencia Watt MD Sep 22, 2018 23:04
[2018-09-23] VITALS (51 sets, daily range): BP systolic 79–108; BP diastolic 61–88
[2018-09-23] MEDS: DOBUTamine 250mg/250ml Premix 250 ML IV SCH ×2 (02:34→20:00)
[2018-09-23] MEDS: Albuterol/Ipratropium 3ml neb HHN SCH ×6 (03:09→23:31)
--- NOTE | 2018-09-23 05:15 | Consultation ---
DATE OF CONSULTATION: NOTE: POOR AUDIO SUBJECTIVE: Mr. Paul is a little bit more awake and alert. He did mention his 's name. His dopamine 400 mg titrate protocol was discontinued. He was on dopamine 1 bag given intravenous q.24 hours and dobutamine 250 mg. He is also on norepinephrine bitartrate 8 mg intravenous q.24 hours. The patient is off his vancomycin and still continues to get piperacillin and Zosyn. His vitamin B12 was 496 and folate was 2.5, it is a little low. His electrolytes were normal except for the following. Calcium was 7.9 with albumin of 1.9, and total protein of 5.6. The magnesium was 1.7. Total bilirubin is 1.1 with a direct of 0.6; his alkaline phosphatase is low at 63. Digoxin level today was 1.6 yesterday. The CBC, his white count is 9300, which is above normal, it is elevated from 6900 yesterday. Hemoglobin is 10.1 with mostly macrocytic indices, platelet count 246,000. There is a left shift. PHYSICAL EXAMINATION: VITAL SIGNS: Blood pressure is 90/72, SpO2 is 98, pulse is 102 and regular, respiration rate is 27, it is high at 36 today. NEUROLOGIC: Mental status is more awake and alert. When asked about how he is doing, he said okay and said he does not want me to examine him. He opened his eyes. He is answer his name, still follow commands. CRANIAL NERVE EXAMINATION: CRANIAL NERVES II: Visual saenz are probably intact to confrontation minimally. CRANIAL NERVES II, IV, AND : The eyes are basically in the midline. Pupils were approximately 3.5 to 4 mm on the left, 3 mm on the right, and light reactive. CRANIAL NERVE V: Corneal sensation was intact bilaterally. CRANIAL NERVE VII: Facial strength appeared to be fairly symmetrical. He could not be tested. CRANIAL NERVES IX AND X: He bulldogged again on the tongue depressor. CRANIAL NERVES XI AND XII: Could not be tested. MUSCLE EXAMINATION: Muscle tone is decreased. Bulk is unchanged. Strength, he can move both upper extremities, right arm a little bit more than the left. There is no tremor. Reflexes are 0 in the upper and lower extremities, probable downgoing toes on testing for Babinski response. Sensation is intact in lower extremities. IMPRESSION: The patient is somewhat stable, although he is still hypertensive. He has septic encephalopathy. His magnesium has to be increased. His folic acid level is low, which should also be increased. He is still tachypneic. He does not have another chest x-ray since September 19, 2018. had blood gas . His grasp reflexes are basically disappeared, suggesting function. PLAN: Continue to follow the patient. Add some magnesium and folic acid. Gibson Bernal MD DR: Ki JOB#: [id number] CC:
[2018-09-23 05:20] LABS: BASOPHILS % (AUTO) 1.9 % (0.0-2.0); EOSINOPHILS % (AUTO) 0.3 % (0.0-3.0); HEMATOCRIT 29.7 % (42.0-52.0); HEMOGLOBIN 9.3 G/DL (14.2-18.0); LYMPHOCYTES % (AUTO) 12.3 % (20.0-45.0); MEAN CORPUSCULAR VOLUME 106 FL (80-99); MONOCYTES % (AUTO) 8.1 % (1.0-10.0); NEUTROPHILS % (AUTO) 77.4 % (45.0-75.0); PLATELET COUNT 143 K/UL (150-450); RED CELL DISTRIBUTION WIDTH 15.5 % (11.6-14.8); WHITE BLOOD COUNT 9.8 K/UL (4.8-10.8)
[2018-09-23 05:52] LABS: ALANINE AMINOTRANSFERASE 7 U/L (12-78); ALBUMIN 1.9 G/DL (3.4-5.0); ALBUMIN/GLOBULIN RATIO 0.4 (1.0-2.7); ALKALINE PHOSPHATASE 78 U/L (46-116); ANION GAP 7 mmol/L (5-15); ASPARTATE AMINO TRANSFERASE 22 U/L (15-37); BILIRUBIN,TOTAL 1.2 MG/DL (0.2-1.0); BLOOD UREA NITROGEN 24 mg/dL (7-18); CALCIUM 8.2 MG/DL (8.5-10.1); CARBON DIOXIDE 25 MMOL/L (21-32); CHLORIDE 102 MMOL/L (98-107); CREATININE 1.2 MG/DL (0.55-1.30); POTASSIUM 4.3 MMOL/L (3.5-5.1); SODIUM 134 MMOL/L (136-145)
[2018-09-23] MEDS: Piperacillin/Tazobactam 4.5 GM in NS 110 ML IVPB SCH ×3 (05:53→22:03)
[2018-09-23 06:00] LABS: BILIRUBIN,DIRECT 0.6 MG/DL (0.0-0.3)
--- NOTE | 2018-09-23 08:52 | General Progress Note ---
Assessment/Plan Status: unchanged Assessment/Plan: 1. Hypertension. 2. History of non-ST elevation myocardial infarction. 3. Severe cardiomyopathy with EF of 20%. 4. Atrial flutter. 5. Right leg DVT. 6. Dysphagia with G-tube placement in last admission. GTF abx per ID fu labs rectal tube add imodium prn Subjective ROS Limited/Unobtainable: Yes Allergies: Coded Allergies: No Known Allergies (Unverified , 01/07/18) Objective Last 24 Hour Vital Signs Date Time Temp Pulse Resp B/P (MAP) Pulse Ox O2 Delivery O2 Flow Rate FiO2 09/23/18 08:30 103 24 95/70 (78) 98 09/23/18 08:00 104 23 96/71 (79) 99 09/23/18 07:30 102 25 93/70 (78) 100 09/23/18 07:07 Nasal Cannula 3.0 32 09/23/18 07:07 99 Nasal Cannula 3.0 32 09/23/18 07:07 Nasal Cannula 3.0 32 09/23/18 07:00 99 26 93/70 (78) 99 09/23/18 06:30 104 27 94/69 (77) 100 09/23/18 06:00 103 29 96/70 (79) 100 09/23/18 06:00 97/71 09/23/18 05:30 103 26 95/68 (77) 100 09/23/18 05:00 103 25 88/71 (77) 100 09/23/18 05:00 95/69 09/23/18 04:56 101/75 09/23/18 04:30 105 26 95/70 (78) 97 09/23/18 04:00 Nasal Cannula 2.0 09/23/18 04:00 111 09/23/18 04:00 98.6 120 33 104/86 (92) 97 09/23/18 03:30 106 29 92/74 (80) 97 09/23/18 03:22 110 27 99 Nasal Cannula 4.0 36 09/23/18 03:10 102 30 97 Nasal Cannula 4.0 36 09/23/18 03:00 112 31 93/73 (80) 97 09/23/18 02:34 90/71 09/23/18 02:30 108 30 91/72 (78) 97 09/23/18 02:00 106 29 92/71 (78) 97 09/23/18 01:30 109 30 89/74 (79) 97 09/23/18 01:00 108 28 89/70 (76) 99 09/23/18 00:30 112 32 93/69 (77) 98 09/23/18 00:00 113 09/23/18 00:00 Nasal Cannula 2.0 09/23/18 00:00 98.0 114 32 96/67 (77) 99 09/22/18 23:30 117 33 91/69 (76) 99 09/22/18 23:00 124 35 98/72 (81) 98 09/22/18 22:30 130 38 95/75 (82) 97 09/22/18 22:21 Nasal Cannula 09/22/18 22:20 137 33 96 Nasal Cannula 4.0 36 09/22/18 22:00 139 35 106/91 (96) 97 09/22/18 21:55 98.4 09/22/18 21:30 143 30 120/106 (111) 98 09/22/18 21:00 126 31 106/81 (89) 97 09/22/18 20:45 119 29 101/74 (83) 97 09/22/18 20:30 107 43 96/71 (79) 98 09/22/18 20:23 95/72 09/22/18 20:15 108 46 95/72 (80) 97 09/22/18 20:00 Nasal Cannula 2.0 09/22/18 20:00 98.3 121 28 99/77 (84) 97 09/22/18 20:00 114 09/22/18 19:45 110 47 91/71 (78) 96 09/22/18 19:44 105 24 97 Nasal Cannula 3.0 32 09/22/18 19:34 97 Nasal Cannula 3.0 32 09/22/18 19:32 114 24 96 Nasal Cannula 3.0 32 09/22/18 19:30 114 39 98/77 (84) 100 09/22/18 19:15 108 36 95/73 (80) 97 09/22/18 19:00 111 31 94/71 (79) 97 09/22/18 19:00 95/73 09/22/18 19:00 95/73 09/22/18 18:30 106 28 93/67 (76) 98 09/22/18 18:00 90/09/22/18 18:00 90/09/22/18 18:00 112 27 89/70 (76) 97 09/22/18 17:30 103 27 91/69 (76) 97 09/22/18 17:30 90/09/22/18 17:00 100 28 89/67 (74) 98 09/22/18 17:00 09/22/18 17:00 /09/22/18 16:45 102 23 90/72 (78) 98 09/22/18 16:45 89/09/22/18 16:30 90/09/22/18 16:30 102 24 98/67 (77) 100 09/22/18 16:15 106 36 94/69 (77) 99 09/22/18 16:15 92/70 09/22/18 16:00 98.4 99 24 92/70 (77) 99 09/22/18 16:00 123 09/22/18 16:00 Nasal Cannula 2.0 09/22/18 16:00 89/09/22/18 16:00 92/70 09/22/18 15:45 100 22 89/59 (69) 99 09/22/18 15:45 /09/22/18 15:34 90/09/22/18 15:30 97 31 90/ (74) 100 09/22/18 15:20 /09/22/18 15:17 Nasal Cannula 2.0 28 09/22/18 15:17 Nasal Cannula 2.0 28 09/22/18 15:00 9009/22/18 15:00 90/64 09/22/18 15:00 114 35 99/69 (79) 95 09/22/18 14:30 104 34 88/74 (79) 96 09/22/18 14:00 96/09/22/18 14:00 96/09/22/18 14:00 108 25 95/78 (84) 96 09/22/18 13:30 103 31 91/70 (77) 95 09/22/18 13:00 101 21 86/70 (75) 95 09/22/18 13:00 94/75 8/5/19 13:00 92/70 09/22/18 12:30 104 22 92/70 (77) 95 09/22/18 12:00 Nasal Cannula 2.0 09/22/18 12:00 99 09/22/18 12:00 98.7 115 20 98/73 (81) 97 09/22/18 12:00 90/74 09/22/18 12:00 90/74 09/22/18 11:30 102 33 94/68 (77) 96 09/22/18 11:25 95/69 09/22/18 11:01 105/70 09/22/18 11:01 95/69 09/22/18 11:00 100 28 94/73 (80) 96 09/22/18 10:46 Nasal Cannula 2.0 28 09/22/18 10:46 Nasal Cannula 2.0 28 09/22/18 10:30 102 30 98/71 (80) 95 09/22/18 10:00 99 30 99/69 (79) 95 09/22/18 10:00 99/69 09/22/18 10:00 99/69 09/22/18 09:30 105 20 90/70 (77) 97 09/22/18 09:05 112 09/22/18 09:00 95 09/22/18 09:00 112 21 92/66 (75) 96 09/22/18 09:00 91/72 09/22/18 09:00 9172 Intake and Output 09/22/18 09/23/18 19:00 07:00 Intake Total 2313.912 ml 1375.073 ml Output Total 1625 ml 590 ml Balance 688.912 ml 785.073 ml Intake Free Water 300 ml 150 ml IV Total 1393.912 ml 575.073 ml Tube Feeding 620 ml 650 ml Output Urine Total 1625 ml 590 ml Laboratory Tests 09/22/18 21:44: Arterial Blood pH 7.508H, Arterial Blood Partial Pressure CO2 30.8L, Arterial Blood Partial Pressure O2 59.5L, Arterial Blood HCO3 23.9, Arterial Blood Oxygen Saturation 92.5L, Arterial Blood Base Excess 1.4, Asad Test N/a 09/23/18 04:15: White Blood Count 9.8, Red Blood Count 2.80L, Hemoglobin 9.3L, Hematocrit 29.7L , Mean Corpuscular Volume 106H, Mean Corpuscular Hemoglobin 33.3H, Mean Corpuscular Hemoglobin Concent 31.4L, Red Cell Distribution Width 15.5H, Platelet Count 143L, Mean Platelet Volume 9.5, Neutrophils (%) (Auto) 77.4H, Lymphocytes (%) (Auto) 12.3L, Monocytes (%) (Auto) 8.1, Eosinophils (%) (Auto) 0.3, Basophils (%) (Auto) 1.9, Activated Partial Thromboplast Time 70H, Sodium Level 134L, Potassium Level 4.3, Chloride Level 102, Carbon Dioxide Level 25, Anion Gap 7, Blood Urea Nitrogen 24H, Creatinine 1.2, Estimat Glomerular Filtration Rate , Glucose Level 143H, Calcium Level 8.2L, Phosphorus Level 2.0L , Magnesium Level 1.9, Total Bilirubin 1.2H, Direct Bilirubin 0.6H, Aspartate Amino Transf (AST/SGOT) 22, Alanine Aminotransferase (ALT/SGPT) 7L, Alkaline Phosphatase 78, Total Protein 6.4, Albumin 1.9L, Globulin 4.5, Albumin/Globulin Ratio 0.4L Height (Feet): 5 Height (Inches): 8.00 Weight (Pounds): 131 General Appearance: no apparent distress EENT: normal ENT inspection Neck: supple Cardiovascular: normal rate Respiratory/Chest: decreased breath sounds Abdomen: normal bowel sounds, non tender, soft Extremities: non-tender Phoenix Boo MD Sep 23, 2018 08:52
[2018-09-23] MEDS: Digoxin 0.125mg tab PEG SCH (08:56)
[2018-09-23] MEDS: Pantoprazole Inj IVP SCH (08:56)
[2018-09-23] MEDS: Aspirin Baby 81mg GT SCH (08:57)
--- NOTE | 2018-09-23 10:44 | Diagnostic Imaging Report ---
Indication: Dyspnea Comparison: 09/19/2018 A single view chest radiograph was obtained. Findings: Pulmonary edema again noted. There is evidence of bilateral pleural effusions. Right jugular line again demonstrated. Cardiomegaly is stable. IMPRESSION: No significant change. Moderate CHF. Bilateral pleural effusions
[2018-09-23] MEDS: Acetaminophen 650mg/20.3ml GT PRN (11:35)
[2018-09-23] MEDS: Heparin 25,000u/D5W 500ml (VTE/AF) IV SCH (11:37)
--- NOTE | 2018-09-23 12:25 | Cardiac Electrophysiology PN ---
Assessment/Plan Assessment/Plan 1. Atrial flutter with rapid ventricular response 140s. HR 100s. Off Coreg for low BP and is on Dobutamine. Had atrial flutter in December 2017 and previous admission also. Consider flutter ablation as out patient. Dig level 0.5. On Dig o.125 daily 2. Cardiogenic and septic shock EF 15%. Cardiac catheterization by me in December 2017 no CAD. Off all CHF meds (Cozaar 25 mg daily, Aldactone 12.5 mg daily, and Coreg 3.125 mg b.i.d) Off Dopamine and on Dobutamine 3 mc/min. On Levophed 16 mcg as well 3. 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 15 beats of nonsustained VT. Due to severe non ischemic CMP. Consider ICD specially for EF 15% as out patient of longevity felt > 1 year 5. History of hypertension. 6. Severe MAIK 0.3 7. Dysphagia, S/P PEG 8. History of DVT on heparin drip 9. Bacteremia due to Sepsis/ SIRS. On iv Abx per Dr Nicole MARADIAGA RN and Subjective Subjective In ICU on Levophed 16 mc. Off Dopamine and on Dobutamine 3 mcg and heparin drip. Still in atrial flutter. and RN at bedside Objective Last 24 Hour Vital Signs Date Time Temp Pulse Resp B/P (MAP) Pulse Ox O2 Delivery O2 Flow Rate FiO2 09/23/18 12:00 108 28 92/73 (79) 100 09/23/18 12:00 108 09/23/18 11:33 109 23 100 Nasal Cannula 3.0 32 09/23/18 11:30 109 30 98/74 (82) 100 09/23/18 11:24 111 28 100 Nasal Cannula 3.0 32 09/23/18 11:00 108 28 95/75 (82) 98 09/23/18 10:00 103 24 104/77 (86) 98 09/23/18 09:00 98.9 103 24 108/88 (95) 98 09/23/18 08:56 103 09/23/18 08:30 103 24 95/70 (78) 98 09/23/18 08:00 105 09/23/18 08:00 104 23 96/71 (79) 99 09/23/18 08:00 Nasal Cannula 2.0 09/23/18 07:30 102 25 93/70 (78) 100 09/23/18 07:07 Nasal Cannula 3.0 32 09/23/18 07:07 99 Nasal Cannula 3.0 32 09/23/18 07:07 Nasal Cannula 3.0 32 09/23/18 07:00 99 26 93/70 (78) 99 09/23/18 06:30 104 27 94/69 (77) 100 09/23/18 06:00 103 29 96/70 (79) 100 09/23/18 06:00 97/71 09/23/18 05:30 103 26 95/68 (77) 100 09/23/18 05:00 103 25 88/71 (77) 100 09/23/18 05:00 95/69 09/23/18 04:56 101/75 09/23/18 04:30 105 26 95/70 (78) 97 09/23/18 04:00 Nasal Cannula 2.0 09/23/18 04:00 111 09/23/18 04:00 98.6 120 33 104/86 (92) 97 09/23/18 03:30 106 29 92/74 (80) 97 09/23/18 03:22 110 27 99 Nasal Cannula 4.0 36 09/23/18 03:10 102 30 97 Nasal Cannula 4.0 36 09/23/18 03:00 112 31 93/73 (80) 97 09/23/18 02:34 90/71 09/23/18 02:30 108 30 91/72 (78) 97 09/23/18 02:00 106 29 92/71 (78) 97 09/23/18 01:30 109 30 89/74 (79) 97 09/23/18 01:00 108 28 89/70 (76) 99 09/23/18 00:30 112 32 93/69 (77) 98 09/23/18 00:00 113 09/23/18 00:00 Nasal Cannula 2.0 09/23/18 00:00 98.0 114 32 96/67 (77) 99 09/22/18 23:30 117 33 91/69 (76) 99 09/22/18 23:00 124 35 98/72 (81) 98 09/22/18 22:30 130 38 95/75 (82) 97 09/22/18 22:21 Nasal Cannula 09/22/18 22:20 137 33 96 Nasal Cannula 4.0 36 09/22/18 22:00 139 35 106/91 (96) 97 09/22/18 21:55 98.4 09/22/18 21:30 143 30 120/106 (111) 98 09/22/18 21:00 126 31 106/81 (89) 97 09/22/18 20:45 119 29 101/74 (83) 97 09/22/18 20:30 107 43 96/71 (79) 98 09/22/18 20:23 95/72 09/22/18 20:15 108 46 95/72 (80) 97 09/22/18 20:00 Nasal Cannula 2.0 09/22/18 20:00 98.3 121 28 99/77 (84) 97 09/22/18 20:00 114 09/22/18 19:45 110 47 91/71 (78) 96 09/22/18 19:44 105 24 97 Nasal Cannula 3.0 32 09/22/18 19:34 97 Nasal Cannula 3.0 32 09/22/18 19:32 114 24 96 Nasal Cannula 3.0 32 09/22/18 19:30 114 39 98/77 (84) 100 09/22/18 19:15 108 36 95/73 (80) 97 09/22/18 19:00 111 31 94/71 (79) 97 09/22/18 19:00 95/73 09/22/18 19:00 95/73 09/22/18 18:30 106 28 93/67 (76) 98 09/22/18 18:00 09/22/18 18:00 09/22/18 18:00 112 27 89/70 (76) 97 09/22/18 17:30 103 27 91/69 (76) 97 09/22/18 17:30 90/09/22/18 17:00 100 28 89/67 (74) 98 09/22/18 17:00 09/22/18 17:00 /09/22/18 16:45 102 23 90/72 (78) 98 09/22/18 16:45 89/09/22/18 16:30 90/09/22/18 16:30 102 24 98/67 (77) 100 09/22/18 16:15 106 36 94/69 (77) 99 09/22/18 16:15 92/70 09/22/18 16:00 98.4 99 24 92/70 (77) 99 09/22/18 16:00 123 09/22/18 16:00 Nasal Cannula 2.0 09/22/18 16:00 89/59 09/22/18 16:00 92/70 09/22/18 15:45 100 22 89/59 (69) 99 09/22/18 15:45 09/22/18 15:34 09/22/18 15:30 97 31 90/ (74) 100 09/22/18 15:20 09/22/18 15:17 Nasal Cannula 2.0 28 09/22/18 15:17 Nasal Cannula 2.0 28 09/22/18 15:00 09/22/18 15:00 09/22/18 15:00 114 35 99/69 (79) 95 09/22/18 14:30 104 34 88/74 (79) 96 09/22/18 14:00 96/09/22/18 14:00 96/09/22/18 14:00 108 25 95/78 (84) 96 09/22/18 13:30 103 31 91/70 (77) 95 09/22/18 13:00 101 21 86/70 (75) 95 09/22/18 13:00 94/75 09/22/18 13:00 92/70 09/22/18 12:30 104 22 92/70 (77) 95 Intake and Output 09/22/18 09/23/18 19:00 07:00 Intake Total 2313.912 ml 1433.630 ml Output Total 1625 ml 590 ml Balance 688.912 ml 843.630 ml Intake Free Water 300 ml 150 ml IV Total 1393.912 ml 633.630 ml Tube Feeding 620 ml 650 ml Output Urine Total 1625 ml 590 ml Laboratory Tests Test 09/22/18 21:44 09/23/18 04:15 Arterial Blood pH 7.508 (7.350-7.450) Arterial Blood Partial Pressure CO2 30.8 mmHg (35.0-45.0) L Arterial Blood Partial Pressure O2 59.5 mmHg (75.0-100.0) L Arterial Blood HCO3 23.9 mmol/L (22.0-26.0) Arterial Blood Oxygen Saturation 92.5 % (95-100) L Arterial Blood Base Excess 1.4 (-2-2) Asad Test N/a White Blood Count 9.8 K/UL (4.8-10.8) Red Blood Count 2.80 M/UL (4.70-6.10) L Hemoglobin 9.3 G/DL (14.2-18.0) L Hematocrit 29.7 % (42.0-52.0) L Mean Corpuscular Volume 106 FL (80-99) H Mean Corpuscular Hemoglobin 33.3 PG (27.0-31.0) H Mean Corpuscular Hemoglobin Concent 31.4 G/DL (32.0-36.0) L Red Cell Distribution Width 15.5 % (11.6-14.8) H Platelet Count 143 K/UL (150-450) L Mean Platelet Volume 9.5 FL (6.5-10.1) Neutrophils (%) (Auto) 77.4 % (45.0-75.0) H Lymphocytes (%) (Auto) 12.3 % (20.0-45.0) L Monocytes (%) (Auto) 8.1 % (1.0-10.0) Eosinophils (%) (Auto) 0.3 % (0.0-3.0) Basophils (%) (Auto) 1.9 % (0.0-2.0) Activated Partial Thromboplast Time 70 SEC (23-33) H Sodium Level 134 MMOL/L (136-145) L Potassium Level 4.3 MMOL/L (3.5-5.1) Chloride Level 102 MMOL/L (98-107) Carbon Dioxide Level 25 MMOL/L (21-32) Anion Gap 7 mmol/L (5-15) Blood Urea Nitrogen 24 mg/dL (7-18) H Creatinine 1.2 MG/DL (0.55-1.30) Estimat Glomerular Filtration Rate mL/min (>60) Glucose Level 143 MG/DL (74-106) H Calcium Level 8.2 MG/DL (8.5-10.1) L Phosphorus Level 2.0 MG/DL (2.5-4.9) L Magnesium Level 1.9 MG/DL (1.8-2.4) Total Bilirubin 1.2 MG/DL (0.2-1.0) H Direct Bilirubin 0.6 MG/DL (0.0-0.3) H Aspartate Amino Transf (AST/SGOT) 22 U/L (15-37) Alanine Aminotransferase (ALT/SGPT) 7 U/L (12-78) L Alkaline Phosphatase 78 U/L (46-116) Total Protein 6.4 G/DL (6.4-8.2) Albumin 1.9 G/DL (3.4-5.0) L Globulin 4.5 g/dL Albumin/Globulin Ratio 0.4 (1.0-2.7) L Microbiology Date/Time Source Procedure Growth Status 09/21/18 07:00 Sputum Gram Stain - Final Complete 09/21/18 07:00 Sputum Culture - Final Kavitha Albicans Usual Upper Respiratory Elisabeth Complete Objective HEAD AND NECK: Face Mask with positive JVD. LUNGS: Coarse rhonchi. CARDIOVASCULAR: Irregular. S1 and S2 with no gallop or murmur. ABDOMEN: Soft.PEG in place EXTREMITIES: No pitting edema. Antonio Conde MD Sep 23, 2018 12:25
--- NOTE | 2018-09-23 13:20 | Infectious Diseases Prog Note ---
Assessment/Plan Assessment/Plan A; Positive blood culture likely contamination Pulmonary edema, ? pneumonia Sepsis/ SIRS Cardiogenic shock Aortic stenosis Atrial flutter HPN Anemia P: Continue Zosyn Poor prognosis will f/u cultures Subjective ROS Limited/Unobtainable: Yes Constitutional: Denies: fever Cardiovascular: Reports: other - off of Dopamin Neurologic: Reports: confusion, other - on restraint Allergies: Coded Allergies: No Known Allergies (Unverified , 01/07/18) Objective Vital Signs Last 24 Hour Vital Signs Date Time Temp Pulse Resp B/P (MAP) Pulse Ox O2 Delivery O2 Flow Rate FiO2 09/23/18 13:00 102 24 79/63 (68) 100 09/23/18 12:30 94 29 84/64 (71) 100 09/23/18 12:00 108 28 92/73 (79) 100 09/23/18 12:00 108 09/23/18 11:33 109 23 100 Nasal Cannula 3.0 32 09/23/18 11:30 109 30 98/74 (82) 100 09/23/18 11:24 111 28 100 Nasal Cannula 3.0 32 09/23/18 11:00 108 28 95/75 (82) 98 09/23/18 10:00 103 24 104/77 (86) 98 09/23/18 09:00 98.9 103 24 108/88 (95) 98 09/23/18 08:56 103 09/23/18 08:30 103 24 95/70 (78) 98 09/23/18 08:00 105 09/23/18 08:00 104 23 96/71 (79) 99 09/23/18 08:00 Nasal Cannula 2.0 09/23/18 07:30 102 25 93/70 (78) 100 09/23/18 07:07 Nasal Cannula 3.0 32 09/23/18 07:07 99 Nasal Cannula 3.0 32 09/23/18 07:07 Nasal Cannula 3.0 32 09/23/18 07:00 99 26 93/70 (78) 99 09/23/18 06:30 104 27 94/69 (77) 100 09/23/18 06:00 103 29 96/70 (79) 100 09/23/18 06:00 97/71 09/23/18 05:30 103 26 95/68 (77) 100 09/23/18 05:00 103 25 88/71 (77) 100 09/23/18 05:00 95/69 09/23/18 04:56 101/75 09/23/18 04:30 105 26 95/70 (78) 97 09/23/18 04:00 Nasal Cannula 2.0 09/23/18 04:00 111 09/23/18 04:00 98.6 120 33 104/86 (92) 97 09/23/18 03:30 106 29 92/74 (80) 97 09/23/18 03:22 110 27 99 Nasal Cannula 4.0 36 09/23/18 03:10 102 30 97 Nasal Cannula 4.0 36 09/23/18 03:00 112 31 93/73 (80) 97 09/23/18 02:34 90/71 09/23/18 02:30 108 30 91/72 (78) 97 09/23/18 02:00 106 29 92/71 (78) 97 09/23/18 01:30 109 30 89/74 (79) 97 09/23/18 01:00 108 28 89/70 (76) 99 09/23/18 00:30 112 32 93/69 (77) 98 09/23/18 00:00 113 09/23/18 00:00 Nasal Cannula 2.0 09/23/18 00:00 98.0 114 32 96/67 (77) 99 09/22/18 23:30 117 33 91/69 (76) 99 09/22/18 23:00 124 35 98/72 (81) 98 09/22/18 22:30 130 38 95/75 (82) 97 09/22/18 22:21 Nasal Cannula 09/22/18 22:20 137 33 96 Nasal Cannula 4.0 36 09/22/18 22:00 139 35 106/91 (96) 97 09/22/18 21:55 98.4 09/22/18 21:30 143 30 120/106 (111) 98 09/22/18 21:00 126 31 106/81 (89) 97 09/22/18 20:45 119 29 101/74 (83) 97 09/22/18 20:30 107 43 96/71 (79) 98 09/22/18 20:23 95/72 09/22/18 20:15 108 46 95/72 (80) 97 09/22/18 20:00 Nasal Cannula 2.0 09/22/18 20:00 98.3 121 28 99/77 (84) 97 09/22/18 20:00 114 09/22/18 19:45 110 47 91/71 (78) 96 09/22/18 19:44 105 24 97 Nasal Cannula 3.0 32 09/22/18 19:34 97 Nasal Cannula 3.0 32 09/22/18 19:32 114 24 96 Nasal Cannula 3.0 32 09/22/18 19:30 114 39 98/77 (84) 100 09/22/18 19:15 108 36 95/73 (80) 97 09/22/18 19:00 111 31 94/71 (79) 97 09/22/18 19:00 95/73 09/22/18 19:00 95/73 09/22/18 18:30 106 28 93/67 (76) 98 09/22/18 18:00 90/09/22/18 18:00 90/09/22/18 18:00 112 27 89/70 (76) 97 09/22/18 17:30 103 27 91/69 (76) 97 09/22/18 17:30 90/09/22/18 17:00 100 28 89/ (74) 98 09/22/18 17:00 09/22/18 17:00 09/22/18 16:45 102 23 90/72 (78) 98 09/22/18 16:45 /09/22/18 16:30 09/22/18 16:30 102 24 98/67 (77) 100 09/22/18 16:15 106 36 94/69 (77) 99 09/22/18 16:15 92/70 09/22/18 16:00 98.4 99 24 92/70 (77) 99 09/22/18 16:00 123 09/22/18 16:00 Nasal Cannula 2.0 09/22/18 16:00 89/59 09/22/18 16:00 92/70 09/22/18 15:45 100 22 89/59 (69) 99 09/22/18 15:45 90/09/22/18 15:34 90/64 09/22/18 15:30 97 31 90/66 (74) 100 09/22/18 15:20 90/09/22/18 15:17 Nasal Cannula 2.0 28 09/22/18 15:17 Nasal Cannula 2.0 28 09/22/18 15:00 9009/22/18 15:00 9009/22/18 15:00 114 35 99/69 (79) 95 09/22/18 14:30 104 34 88/74 (79) 96 09/22/18 14:00 96/09/22/18 14:00 9609/22/18 14:00 108 25 95/78 (84) 96 09/22/18 13:30 103 31 91/70 (77) 95 Height (Feet): 5 Height (Inches): 8.00 Weight (Pounds): 131 HEENT: mucous membranes moist Respiratory/Chest: lungs clear Cardiovascular: tachycardia, other - R IJ central line Abdomen: soft, non tender, other Extremities: other - generalized edema Neurologic/Psychiatric: alert, responsive Microbiology Date/Time Source Procedure Growth Status 09/21/18 07:00 Sputum Gram Stain - Final Complete 09/21/18 07:00 Sputum Culture - Final Kavitha Albicans Usual Upper Respiratory Elisabeth Complete Laboratory Tests Test 09/22/18 21:44 09/23/18 04:15 Arterial Blood pH 7.508 (7.350-7.450) Arterial Blood Partial Pressure CO2 30.8 mmHg (35.0-45.0) L Arterial Blood Partial Pressure O2 59.5 mmHg (75.0-100.0) L Arterial Blood HCO3 23.9 mmol/L (22.0-26.0) Arterial Blood Oxygen Saturation 92.5 % (95-100) L Arterial Blood Base Excess 1.4 (-2-2) Asad Test N/a White Blood Count 9.8 K/UL (4.8-10.8) Red Blood Count 2.80 M/UL (4.70-6.10) L Hemoglobin 9.3 G/DL (14.2-18.0) L Hematocrit 29.7 % (42.0-52.0) L Mean Corpuscular Volume 106 FL (80-99) H Mean Corpuscular Hemoglobin 33.3 PG (27.0-31.0) H Mean Corpuscular Hemoglobin Concent 31.4 G/DL (32.0-36.0) L Red Cell Distribution Width 15.5 % (11.6-14.8) H Platelet Count 143 K/UL (150-450) L Mean Platelet Volume 9.5 FL (6.5-10.1) Neutrophils (%) (Auto) 77.4 % (45.0-75.0) H Lymphocytes (%) (Auto) 12.3 % (20.0-45.0) L Monocytes (%) (Auto) 8.1 % (1.0-10.0) Eosinophils (%) (Auto) 0.3 % (0.0-3.0) Basophils (%) (Auto) 1.9 % (0.0-2.0) Activated Partial Thromboplast Time 70 SEC (23-33) H Sodium Level 134 MMOL/L (136-145) L Potassium Level 4.3 MMOL/L (3.5-5.1) Chloride Level 102 MMOL/L (98-107) Carbon Dioxide Level 25 MMOL/L (21-32) Anion Gap 7 mmol/L (5-15) Blood Urea Nitrogen 24 mg/dL (7-18) H Creatinine 1.2 MG/DL (0.55-1.30) Estimat Glomerular Filtration Rate mL/min (>60) Glucose Level 143 MG/DL (74-106) H Calcium Level 8.2 MG/DL (8.5-10.1) L Phosphorus Level 2.0 MG/DL (2.5-4.9) L Magnesium Level 1.9 MG/DL (1.8-2.4) Total Bilirubin 1.2 MG/DL (0.2-1.0) H Direct Bilirubin 0.6 MG/DL (0.0-0.3) H Aspartate Amino Transf (AST/SGOT) 22 U/L (15-37) Alanine Aminotransferase (ALT/SGPT) 7 U/L (12-78) L Alkaline Phosphatase 78 U/L (46-116) Total Protein 6.4 G/DL (6.4-8.2) Albumin 1.9 G/DL (3.4-5.0) L Globulin 4.5 g/dL Albumin/Globulin Ratio 0.4 (1.0-2.7) L Current Medications Medications (Trade) Dose Ordered Sig/Fritz Route PRN Reason Start Time Stop Time Status Last Admin Dose Admin Acetaminophen (Tylenol) 650 mg Q6H PRN GT Mild Pain/Temp > 100.5 09/19/18 03:45 10/19/18 03:44 09/23/18 11:35 Albuterol/ Ipratropium (Albuterol/ Ipratropium) 3 ml Q4H PRN HHN Shortness of Breath 09/19/18 03:30 09/24/18 03:29 Albuterol/ Ipratropium (Albuterol/ Ipratropium) 3 ml Q4HRT HHN 09/19/18 11:00 09/24/18 10:59 09/23/18 11:32 Aspirin (ASA) 81 mg DAILY GT 09/19/18 09:00 10/19/18 08:59 09/23/18 08:57 Chlorhexidine Gluconate (Nadeen-Hex 2%) 1 applic DAILY@2000 TOPIC 09/19/18 20:00 10/19/18 19:59 09/22/18 20:23 Digoxin (Lanoxin) 0.125 mg DAILY PEG 09/20/18 09:00 10/20/18 08:59 09/23/18 08:56 Dobutamine HCl 250 ml @ 10.497 mls/ hr Q24H IV 09/20/18 16:00 10/19/18 15:59 09/23/18 02:34 Furosemide (Lasix) 20 mg BID IV 09/21/18 18:00 10/21/18 17:59 09/23/18 08:57 Heparin Sodium/ Dextrose 500 ml @ 17.58 mls/ hr ADJUST PER PROTOCOL IV 09/21/18 07:15 10/21/18 05:39 09/23/18 11:37 Loperamide HCl (Imodium) 2 mg Q6H PRN NG Diarrhea 09/23/18 09:00 10/23/18 08:59 Norepinephrine Bitartrate 8 mg/ Dextrose 254 ml @ 0 mls/hr Q24H IV 09/19/18 03:30 10/19/18 03:29 09/23/18 04:56 Ondansetron HCl (Zofran) 4 mg Q4H PRN IVP Nausea & Vomiting 09/19/18 04:15 10/19/18 04:14 Pantoprazole (Protonix) 40 mg DAILY IVP 09/19/18 09:00 10/19/18 08:59 09/23/18 08:56 Piperacillin Sod/ Tazobactam Sod 4.5 gm/Sodium Chloride 110 ml @ 27.5 mls/hr Q8HR IVPB 09/19/18 06:00 09/26/18 05:59 09/23/18 05:53 Potassium Chloride (K-Dur) 40 meq DAILY ORAL 09/22/18 09:00 10/22/18 08:59 09/23/18 08:57 Alexis Rivera MD Sep 23, 2018 13:20
--- NOTE | 2018-09-23 13:56 | Pulmonolgy Critical Care Note ---
Critical Care - Asmt/Plan Assessment/Plan: Pulmonary CCM Progress Note HPI Patient is a 77-year-old male recently discharged from the hospital, s/p G-tube for Failure to thrive, has a history of atrial fibrillation/DVT on Eliquis, CHF with EF 20%, CAD with previous NSTEMI, Aortic stenosis, Mitral Regurgitation, Chronic anemia, thromocytopenia, previous admissions for pneumonia, presents from nursing facility for altered mental status and hypotension, decubitus ulcers, recent positive blood culture with staph simulans. At the [facility] was noted to have blood pressure in the mid 70s, was confused, oriented to self only. There is no report of trauma. The patient has no complaints at this time but is oriented to self only cannot provide any significant history. On pressors prn, on heparin gtt PMH: Failure to thrive, has a history of atrial fibrillation/DVT on Eliquis, CHF with EF 20%, CAD with previous NSTEMI, Aortic stenosis, Mitral Regurgitation , Hypertension, Chronic anemia, thromocytopenia, previous admissions for pneumonia, thrombocytopenia presents from nursing facility for altered mental status and hypotension, decubitus ulcers, recent positive blood culture with staph simulans Less SOB, remains on pressors (being weaned), on heparin gtt, persistant pulmonary congestion on CXR Allergies: No documented allergies Allergies: No Known Allergies All Other Systems: limited - Due to altered mental status on presentation Physical Exam Vital Signs Noted On Levophed General: Chronically ill, wasted, no acute distress,RIJ line HEENT: NC/AT. EOMI. PERRLA, pupils equal and reactive bilaterally. No obvious facial trauma. Dry mucous membranes Neck: Supple, trachea midline Chest Wall: No tenderness, no deformity Cardiovascular: Irregularly irregular rhythm, regular rate, HS1, HS2, ESM Resp: Normal work of breathing. CTAB Abdomen: Abdomen is soft, nondistended. Nontender Skin: Multiple ulcers over the back and buttock n MSK: Appears frail and somewhat cachectic. Moving all extremities though diminished strength in all limbs Neuro: Awake, confused, oriented to self only. No focal signs, no seizures EKG: Rate: normal Rhythm: other - Atrial fibrillation ST Segments: no acute changes CXR: Interim placement right jugular central venous catheter, tip of which projects at the level of the high right atrium. Again demonstrated is bilateral interstitial and airspace edema, bilateral pleural effusions, and cardiomegaly. There is no evidence of pneumothorax. CT Head: No acute intracranial findings. Atrophy. Chronic-appearing ischemic changes and encephalomalacia. 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, CHF with EF 20% CAD with previous NSTEMI - currently elevated Troponin Aortic stenosis, Mitral Regurgitation H/o hypertension Chronic anemia, thromocytopenia Previous admissions for pneumonia Plan IV Antibiotics Levophed Aspiration Precautions Heparin gtt - hold NOACS for now Consider thoracentesis once more stable ASA BiPAP PRN Duonebs PRN/CPT Lasix PRN Monitor Glucose Monitor labs PPX Critical Care - Objective Last 24 Hour Vital Signs Date Time Temp Pulse Resp B/P (MAP) Pulse Ox O2 Delivery O2 Flow Rate FiO2 09/23/18 13:30 99.2 102 25 103/68 (80) 100 09/23/18 13:00 102 24 79/63 (68) 100 09/23/18 12:30 94 29 84/64 (71) 100 09/23/18 12:00 Nasal Cannula 2.0 09/23/18 12:00 108 28 92/73 (79) 100 09/23/18 12:00 108 09/23/18 11:33 109 23 100 Nasal Cannula 3.0 32 09/23/18 11:30 109 30 98/74 (82) 100 09/23/18 11:24 111 28 100 Nasal Cannula 3.0 32 09/23/18 11:00 108 28 95/75 (82) 98 09/23/18 10:00 103 24 104/77 (86) 98 09/23/18 09:00 98.9 103 24 108/88 (95) 98 09/23/18 08:56 103 09/23/18 08:30 103 24 95/70 (78) 98 09/23/18 08:00 105 09/23/18 08:00 104 23 96/71 (79) 99 09/23/18 08:00 Nasal Cannula 2.0 09/23/18 07:30 102 25 93/70 (78) 100 09/23/18 07:07 Nasal Cannula 3.0 32 09/23/18 07:07 99 Nasal Cannula 3.0 32 09/23/18 07:07 Nasal Cannula 3.0 32 09/23/18 07:00 99 26 93/70 (78) 99 09/23/18 06:30 104 27 94/69 (77) 100 09/23/18 06:00 103 29 96/70 (79) 100 09/23/18 06:00 97/71 09/23/18 05:30 103 26 95/68 (77) 100 09/23/18 05:00 103 25 88/71 (77) 100 09/23/18 05:00 95/69 09/23/18 04:56 101/75 09/23/18 04:30 105 26 95/70 (78) 97 09/23/18 04:00 Nasal Cannula 2.0 09/23/18 04:00 111 09/23/18 04:00 98.6 120 33 104/86 (92) 97 09/23/18 03:30 106 29 92/74 (80) 97 09/23/18 03:22 110 27 99 Nasal Cannula 4.0 36 09/23/18 03:10 102 30 97 Nasal Cannula 4.0 36 09/23/18 03:00 112 31 93/73 (80) 97 09/23/18 02:34 90/71 09/23/18 02:30 108 30 91/72 (78) 97 09/23/18 02:00 106 29 92/71 (78) 97 09/23/18 01:30 109 30 89/74 (79) 97 09/23/18 01:00 108 28 89/70 (76) 99 09/23/18 00:30 112 32 93/69 (77) 98 09/23/18 00:00 113 09/23/18 00:00 Nasal Cannula 2.0 09/23/18 00:00 98.0 114 32 96/67 (77) 99 09/22/18 23:30 117 33 91/69 (76) 99 09/22/18 23:00 124 35 98/72 (81) 98 09/22/18 22:30 130 38 95/75 (82) 97 09/22/18 22:21 Nasal Cannula 09/22/18 22:20 137 33 96 Nasal Cannula 4.0 36 09/22/18 22:00 139 35 106/91 (96) 97 09/22/18 21:55 98.4 09/22/18 21:30 143 30 120/106 (111) 98 09/22/18 21:00 126 31 106/81 (89) 97 09/22/18 20:45 119 29 101/74 (83) 97 09/22/18 20:30 107 43 96/71 (79) 98 09/22/18 20:23 95/72 09/22/18 20:15 108 46 95/72 (80) 97 09/22/18 20:00 Nasal Cannula 2.0 09/22/18 20:00 98.3 121 28 99/77 (84) 97 09/22/18 20:00 114 09/22/18 19:45 110 47 91/71 (78) 96 09/22/18 19:44 105 24 97 Nasal Cannula 3.0 32 09/22/18 19:34 97 Nasal Cannula 3.0 32 09/22/18 19:32 114 24 96 Nasal Cannula 3.0 32 09/22/18 19:30 114 39 98/77 (84) 100 09/22/18 19:15 108 36 95/73 (80) 97 09/22/18 19:00 111 31 94/71 (79) 97 09/22/18 19:00 95/73 09/22/18 19:00 95/73 09/22/18 18:30 106 28 93/67 (76) 98 09/22/18 18:00 90/59 09/22/18 18:00 90/59 09/22/18 18:00 112 27 89/70 (76) 97 09/22/18 17:30 103 27 91/69 (76) 97 09/22/18 17:30 90/68 09/22/18 17:00 100 28 89/67 (74) 98 09/22/18 17:00 90/09/22/18 17:00 90/68 09/22/18 16:45 102 23 90/72 (78) 98 09/22/18 16:45 89/67 09/22/18 16:30 90/72 09/22/18 16:30 102 24 98/67 (77) 100 09/22/18 16:15 106 36 94/69 (77) 99 09/22/18 16:15 92/70 09/22/18 16:00 98.4 99 24 92/70 (77) 99 8/5/19 16:00 123 09/22/18 16:00 Nasal Cannula 2.0 09/22/18 16:00 89/59 09/22/18 16:00 92/70 09/22/18 15:45 100 22 89/59 (69) 99 09/22/18 15:45 90/09/22/18 15:34 90/64 09/22/18 15:30 97 31 90/66 (74) 100 09/22/18 15:20 90/09/22/18 15:17 Nasal Cannula 2.0 28 09/22/18 15:17 Nasal Cannula 2.0 28 09/22/18 15:00 /64 09/22/18 15:00 90/09/22/18 15:00 114 35 99/69 (79) 95 09/22/18 14:30 104 34 88/74 (79) 96 09/22/18 14:00 96/77 09/22/18 14:00 96/77 09/22/18 14:00 108 25 95/78 (84) 96 Micro: Microbiology Date/Time Source Procedure Growth Status 09/21/18 07:00 Sputum Gram Stain - Final Complete 09/21/18 07:00 Sputum Culture - Final Kavitha Albicans Usual Upper Respiratory Elisabeth Complete Accucheck: 116 Critical Care - Subjective ROS Limited/Unobtainable: No FI02: 32 Sputum Amount: None Tube Feeding Amount: 50 I&O: Intake and Output 09/22/18 09/23/18 18:59 06:59 Intake Total 2350.529 ml 1434.113 ml Output Total 1640 ml 665 ml Balance 710.529 ml 769.113 ml Intake Free Water 300 ml 150 ml IV Total 1425.529 ml 634.113 ml Tube Feeding 625 ml 650 ml Output Urine Total 1640 ml 665 ml Robbin Diana MD Sep 23, 2018 13:56
--- NOTE | 2018-09-23 16:34 | Hematology/Onc Progress Note ---
Assessment/Plan Assessment/Plan Assessment and Recs: # Acute right leg DVT hx, before was on eliquis, currently is on heparin gtt also with mobile clot --> cards aware from prior admission --> currently on heparin gtt --> ONCE is on coumadin/lovenox, inr goal is 2-3 --> monitor for bleeding # Anemia of chronic disease due to underlying chronic medical issues, multifactorial. --> Anemia w/u has been reviewed. Ferritin at 450. --> hgb goal >7. Transfuse prn. --> No evidence of hemolysis noted --> hgb trend 12-->10.7-->10.1-->9.3 --> FOLIC ACID STARTED (with macrocytosis) and mcv >105 and low folate # Thrombocytopenia - most likely related to PNA infection. 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 CXR has been reviewed. --> pulm eval prn --> on multiple pressors in the icu per cards --> on abx per id # Myocardial infarction. --> Cardiac cath [address] Conde # Atrial flutter with rapid ventricular response (reason for this admission). --> per cards, potential ablation o/p --> potential icd placement --> on heparin gtt, to continue # Psych disorder -- as per psych recs The timing of this note does not necessarily reflect the time of the patient was seen. Greatly appreciate consultation! Subjective Constitutional: Denies: no symptoms, chills, fever, malaise, weakness, other HEENT: Denies: no symptoms, eye pain, blurred vision, tearing, double vision, ear pain, ear discharge, nose pain, nose congestion, throat pain, throat swelling, mouth pain, mouth swelling, other Cardiovascular: Denies: no symptoms, chest pain, edema, irregular heart rate, lightheadedness, palpitations, syncope, other Respiratory: Denies: no symptoms, cough, shortness of breath, SOB with excertion, SOB at rest, sputum, wheezing, other Gastrointestinal/Abdominal: Denies: no symptoms, abdomen distended, abdominal pain, black stools, tarry stools, blood in stool, constipated, diarrhea, difficulty swallowing, nausea, poor appetite, poor fluid intake, rectal bleeding , vomiting, other Genitourinary: Denies: no symptoms, burning, discharge, frequency, flank pain, hematuria, incontinence, pain, urgency, other Neurologic/Psychiatric: Denies: no symptoms, anxiety, depressed, emotional problems, headache, numbness, paresthesia, pre-existing deficit, seizure, tingling, tremors, weakness, other Endocrine: Denies: no symptoms, excessive sweating, flushing, intolerance to cold, intolerance to heat, increased hunger, increased thirst, increased urine, unexplained weight gain, unexplained weight loss, other Allergies: Coded Allergies: No Known Allergies (Unverified , 01/07/18) Subjective Subjective 09/19: was discharged yesterday, now comes back in for hypotension, on dig, and heparin gtt, cards seen 09/21: no events, no fevers or chills, no bleeding, on abx, off pressors, is on heparin gtt 09/22: coming off dopamine, vanc stopped per id, still on zosyn, labs reviewed, by beside and lynne rn 09/23: on dobutamine and levo, on abx, seen with rn, labs reviewed in icu Objective Objective Current Medications Medications (Trade) Dose Ordered Sig/Fritz Route PRN Reason Start Time Stop Time Status Last Admin Dose Admin Acetaminophen (Tylenol) 650 mg Q6H PRN GT Mild Pain/Temp > 100.5 09/19/18 03:45 10/19/18 03:44 09/23/18 11:35 Albuterol/ Ipratropium (Albuterol/ Ipratropium) 3 ml Q4H PRN HHN Shortness of Breath 09/19/18 03:30 09/24/18 03:29 Albuterol/ Ipratropium (Albuterol/ Ipratropium) 3 ml Q4HRT HHN 09/19/18 11:00 09/24/18 10:59 09/23/18 15:02 Aspirin (ASA) 81 mg DAILY GT 09/19/18 09:00 10/19/18 08:59 09/23/18 08:57 Chlorhexidine Gluconate (Nadeen-Hex 2%) 1 applic DAILY@2000 TOPIC 09/19/18 20:00 10/19/18 19:59 09/22/18 20:23 Digoxin (Lanoxin) 0.125 mg DAILY PEG 09/20/18 09:00 10/20/18 08:59 09/23/18 08:56 Dobutamine HCl 250 ml @ 10.497 mls/ hr Q24H IV 09/20/18 16:00 10/19/18 15:59 09/23/18 02:34 Furosemide (Lasix) 20 mg BID IV 09/21/18 18:00 10/21/18 17:59 09/23/18 08:57 Furosemide (Lasix) 20 mg ONCE IV 09/24/18 00:00 09/24/18 01:00 Heparin Sodium/ Dextrose 500 ml @ 17.58 mls/ hr ADJUST PER PROTOCOL IV 09/21/18 07:15 10/21/18 05:39 09/23/18 11:37 Loperamide HCl (Imodium) 2 mg Q6H PRN NG Diarrhea 09/23/18 09:00 10/23/18 08:59 Norepinephrine Bitartrate 8 mg/ Dextrose 254 ml @ 0 mls/hr Q24H IV 09/19/18 03:30 10/19/18 03:29 09/23/18 04:56 Ondansetron HCl (Zofran) 4 mg Q4H PRN IVP Nausea & Vomiting 09/19/18 04:15 10/19/18 04:14 Pantoprazole (Protonix) 40 mg DAILY IVP 09/19/18 09:00 10/19/18 08:59 09/23/18 08:56 Piperacillin Sod/ Tazobactam Sod 4.5 gm/Sodium Chloride 110 ml @ 27.5 mls/hr Q8HR IVPB 09/19/18 06:00 09/26/18 05:59 09/23/18 14:26 Potassium Chloride (K-Dur) 40 meq DAILY ORAL 09/22/18 09:00 10/22/18 08:59 09/23/18 08:57 Last 24 Hour Vital Signs Date Time Temp Pulse Resp B/P (MAP) Pulse Ox O2 Delivery O2 Flow Rate FiO2 09/23/18 16:00 99.4 108 24 86/70 (75) 97 09/23/18 16:00 Nasal Cannula 2.0 09/23/18 16:00 106 09/23/18 15:30 105 24 100/78 (85) 97 09/23/18 15:03 105 22 100 Nasal Cannula 3.0 32 09/23/18 15:00 104 24 105/70 (82) 100 09/23/18 14:55 104 23 100 Nasal Cannula 3.0 32 09/23/18 14:30 102 24 103/69 (80) 100 09/23/18 14:00 101 24 104/70 (81) 100 09/23/18 14:00 104/70 09/23/18 13:30 99.2 102 25 103/68 (80) 100 09/23/18 13:00 102 24 79/63 (68) 100 09/23/18 13:00 74/53 09/23/18 12:30 94 29 84/64 (71) 100 09/23/18 12:05 99.2 09/23/18 12:00 Nasal Cannula 2.0 09/23/18 12:00 108 28 92/73 (79) 100 09/23/18 12:00 108 09/23/18 12:00 92/73 09/23/18 11:33 109 23 100 Nasal Cannula 3.0 32 09/23/18 11:30 109 30 98/74 (82) 100 09/23/18 11:24 111 28 100 Nasal Cannula 3.0 32 09/23/18 11:00 108 28 95/75 (82) 98 09/23/18 10:00 103 24 104/77 (86) 98 09/23/18 09:00 98.9 103 24 108/88 (95) 98 09/23/18 08:56 103 09/23/18 08:30 103 24 95/70 (78) 98 09/23/18 08:00 105 09/23/18 08:00 104 23 96/71 (79) 99 09/23/18 08:00 Nasal Cannula 2.0 09/23/18 07:30 102 25 93/70 (78) 100 09/23/18 07:07 Nasal Cannula 3.0 32 09/23/18 07:07 99 Nasal Cannula 3.0 32 09/23/18 07:07 Nasal Cannula 3.0 32 09/23/18 07:00 99 26 93/70 (78) 99 09/23/18 06:30 104 27 94/69 (77) 100 09/23/18 06:00 103 29 96/70 (79) 100 09/23/18 06:00 97/71 09/23/18 05:30 103 26 95/68 (77) 100 09/23/18 05:00 103 25 88/71 (77) 100 09/23/18 05:00 95/69 09/23/18 04:56 101/75 09/23/18 04:30 105 26 95/70 (78) 97 09/23/18 04:00 Nasal Cannula 2.0 09/23/18 04:00 111 09/23/18 04:00 98.6 120 33 104/86 (92) 97 09/23/18 03:30 106 29 92/74 (80) 97 09/23/18 03:22 110 27 99 Nasal Cannula 4.0 36 09/23/18 03:10 102 30 97 Nasal Cannula 4.0 36 09/23/18 03:00 112 31 93/73 (80) 97 09/23/18 02:34 90/71 09/23/18 02:30 108 30 91/72 (78) 97 09/23/18 02:00 106 29 92/71 (78) 97 09/23/18 01:30 109 30 89/74 (79) 97 09/23/18 01:00 108 28 89/70 (76) 99 09/23/18 00:30 112 32 93/69 (77) 98 09/23/18 00:00 113 09/23/18 00:00 Nasal Cannula 2.0 09/23/18 00:00 98.0 114 32 96/67 (77) 99 09/22/18 23:30 117 33 91/69 (76) 99 09/22/18 23:00 124 35 98/72 (81) 98 09/22/18 22:30 130 38 95/75 (82) 97 09/22/18 22:21 Nasal Cannula 09/22/18 22:20 137 33 96 Nasal Cannula 4.0 36 09/22/18 22:00 139 35 106/91 (96) 97 09/22/18 21:30 143 30 120/106 (111) 98 09/22/18 21:00 126 31 106/81 (89) 97 09/22/18 20:45 119 29 101/74 (83) 97 09/22/18 20:30 107 43 96/71 (79) 98 09/22/18 20:23 95/72 09/22/18 20:15 108 46 95/72 (80) 97 09/22/18 20:00 Nasal Cannula 2.0 09/22/18 20:00 98.3 121 28 99/77 (84) 97 09/22/18 20:00 114 09/22/18 19:45 110 47 91/71 (78) 96 09/22/18 19:44 105 24 97 Nasal Cannula 3.0 32 09/22/18 19:34 97 Nasal Cannula 3.0 32 09/22/18 19:32 114 24 96 Nasal Cannula 3.0 32 09/22/18 19:30 114 39 98/77 (84) 100 09/22/18 19:15 108 36 95/73 (80) 97 09/22/18 19:00 111 31 94/71 (79) 97 09/22/18 19:00 95/73 09/22/18 19:00 95/73 09/22/18 18:30 106 28 93/67 (76) 98 09/22/18 18:00 90/59 09/22/18 18:00 90/09/22/18 18:00 112 27 89/70 (76) 97 09/22/18 17:30 103 27 91/69 (76) 97 09/22/18 17:30 09/22/18 17:00 100 28 89/67 (74) 98 09/22/18 17:00 09/22/18 17:00 09/22/18 16:45 102 23 90/72 (78) 98 09/22/18 16:45 89/09/22/18 16:30 90/09/22/18 16:30 102 24 98/67 (77) 100 09/22/18 16:15 106 36 94/69 (77) 99 09/22/18 16:15 92/70 09/22/18 16:00 98.4 99 24 92/70 (77) 99 09/22/18 16:00 123 09/22/18 16:00 Nasal Cannula 2.0 09/22/18 16:00 89/59 09/22/18 16:00 92/09/22/18 15:45 100 22 89/59 (69) 99 09/22/18 15:45 /09/22/18 15:34 90/64 09/22/18 15:30 97 31 90/ (74) 100 09/22/18 15:20 /09/22/18 15:17 Nasal Cannula 2.0 28 09/22/18 15:17 Nasal Cannula 2.0 28 09/22/18 15:00 09/22/18 15:00 /09/22/18 15:00 114 35 99/69 (79) 95 09/22/18 14:30 104 34 88/74 (79) 96 09/22/18 14:00 96/09/22/18 14:00 96/77 09/22/18 14:00 108 25 95/78 (84) 96 09/22/18 13:30 103 31 91/70 (77) 95 09/22/18 13:00 101 21 86/70 (75) 95 09/22/18 13:00 94/75 09/22/18 13:00 92/70 09/22/18 12:30 104 22 92/70 (77) 95 09/22/18 12:00 Nasal Cannula 2.0 09/22/18 12:00 99 09/22/18 12:00 98.7 115 20 98/73 (81) 97 09/22/18 12:00 90/74 09/22/18 12:00 90/74 09/22/18 11:30 102 33 94/68 (77) 96 09/22/18 11:25 95/69 09/22/18 11:01 105/70 09/22/18 11:01 95/69 09/22/18 11:00 100 28 94/73 (80) 96 09/22/18 10:46 Nasal Cannula 2.0 28 09/22/18 10:46 Nasal Cannula 2.0 28 09/22/18 10:30 102 30 98/71 (80) 95 09/22/18 10:00 99 30 99/69 (79) 95 09/22/18 10:00 99/69 09/22/18 10:00 99/69 09/22/18 09:30 105 20 90/70 (77) 97 09/22/18 09:05 112 09/22/18 09:00 95 09/22/18 09:00 112 21 92/66 (75) 96 09/22/18 09:00 91/72 09/22/18 09:00 91/09/22/18 08:30 103 18 94/71 (79) 96 09/22/18 08:00 Nasal Cannula 2.0 09/22/18 08:00 105 09/22/18 08:00 98/73 09/22/18 08:00 98/73 09/22/18 08:00 97.9 96 35 89/64 (72) 97 09/22/18 07:41 89/71 09/22/18 07:30 97 29 70/53 (59) 97 09/22/18 07:00 101 19 90/70 (77) 100 09/22/18 07:00 90/09/22/18 06:57 100 Nasal Cannula 2.0 28 09/22/18 06:53 100 22 97 Nasal Cannula 2.0 28 09/22/18 06:47 99 25 96 Nasal Cannula 2.0 28 09/22/18 06:30 102 26 90/70 (77) 96 09/22/18 06:00 93/66 09/22/18 06:00 102 24 93/66 (75) 96 09/22/18 05:30 101 21 97/69 (78) 98 09/22/18 05:00 103 32 96/75 (82) 97 09/22/18 05:00 96/75 09/22/18 04:30 103 25 94/71 (79) 96 09/22/18 04:02 97/70 09/22/18 04:00 98.2 103 29 90/63 (72) 97 09/22/18 04:00 90/63 09/22/18 04:00 Nasal Cannula 2.0 09/22/18 03:30 103 27 90/69 (76) 98 09/22/18 03:30 104 24 98 Nasal Cannula 2.0 28 09/22/18 03:25 108 24 98 Nasal Cannula 2.0 28 09/22/18 03:22 110 09/22/18 03:00 101 28 93/77 (82) 99 09/22/18 03:00 93/77 09/22/18 02:30 98 28 87/72 (77) 99 09/22/18 02:00 102 28 89/69 (76) 97 09/22/18 02:00 89/69 09/22/18 01:30 95 28 95/70 (78) 99 09/22/18 01:18 96/72 09/22/18 01:00 109 32 96/72 (80) 98 09/22/18 01:00 96/72 09/22/18 00:30 104 31 94/72 (79) 95 09/22/18 00:00 97.7 102 32 93/73 (80) 99 09/22/18 00:00 93/73 09/22/18 00:00 Nasal Cannula 2.0 09/21/18 23:32 106 09/21/18 23:30 104 28 94/71 (79) 98 09/21/18 23:16 Nasal Cannula 2.0 28 09/21/18 23:16 Nasal Cannula 2.0 28 09/21/18 23:00 96/67 09/21/18 23:00 103 25 96/67 (77) 98 09/21/18 22:30 107 30 96/65 (75) 98 09/21/18 22:00 110 32 96/67 (77) 97 09/21/18 22:00 96/97 09/21/18 21:30 100 28 93/73 (80) 99 09/21/18 21:00 95/71 09/21/18 21:00 108 26 95/71 (79) 98 09/21/18 20:30 101 30 96/71 (79) 98 09/21/18 20:00 98.6 104 29 87/96 (93) 98 09/21/18 20:00 Nasal Cannula 2.0 09/21/18 20:00 87/69 09/21/18 19:44 101 26 100 Nasal Cannula 2.0 28 09/21/18 19:34 105 25 98 Nasal Cannula 2.0 28 09/21/18 19:34 98 Nasal Cannula 2.0 28 09/21/18 19:30 100 32 93/64 (74) 98 09/21/18 19:22 107 09/21/18 19:00 101 24 93/64 (74) 98 09/21/18 18:30 104 25 90/73 (79) 98 09/21/18 18:00 103 24 89/66 (74) 97 09/21/18 17:30 100 25 87/67 (74) 98 09/21/18 17:13 99 22 90/64 (73) 97 09/21/18 17:01 99 39 86/63 (71) 95 09/21/18 17:00 98 43 82/67 (72) 98 Intake and Output 09/22/18 09/23/18 18:59 06:59 Intake Total 2350.529 ml 1434.113 ml Output Total 1640 ml 665 ml Balance 710.529 ml 769.113 ml Intake Free Water 300 ml 150 ml IV Total 1425.529 ml 634.113 ml Tube Feeding 625 ml 650 ml Output Urine Total 1640 ml 665 ml Labs Test 09/21/18 04:25 09/21/18 11:45 09/22/18 04:00 09/22/18 07:34 White Blood Count 6.9 K/UL (4.8-10.8) 9.3 K/UL (4.8-10.8) Red Blood Count 3.16 M/UL (4.70-6.10) 3.02 M/UL (4.70-6.10) Hemoglobin 10.7 G/DL (14.2-18.0) 10.1 G/DL (14.2-18.0) Hematocrit 33.4 % (42.0-52.0) 32.0 % (42.0-52.0) Mean Corpuscular Volume 106 FL (80-99) 106 FL (80-99) Mean Corpuscular Hemoglobin 33.9 PG (27.0-31.0) 33.6 PG (27.0-31.0) Mean Corpuscular Hemoglobin Concent 32.1 G/DL (32.0-36.0) 31.7 G/DL (32.0-36.0) Red Cell Distribution Width 14.5 % (11.6-14.8) 15.1 % (11.6-14.8) Platelet Count 140 K/UL (150-450) 146 K/UL (150-450) Mean Platelet Volume 9.6 FL (6.5-10.1) 9.1 FL (6.5-10.1) Neutrophils (%) (Auto) 76.4 % (45.0-75.0) 78.2 % (45.0-75.0) Lymphocytes (%) (Auto) 13.7 % (20.0-45.0) 10.4 % (20.0-45.0) Monocytes (%) (Auto) 7.0 % (1.0-10.0) 8.2 % (1.0-10.0) Eosinophils (%) (Auto) 1.9 % (0.0-3.0) 2.4 % (0.0-3.0) Basophils (%) (Auto) 1.0 % (0.0-2.0) 0.8 % (0.0-2.0) Activated Partial Thromboplast Time 108 SEC (23-33) 71 SEC (23-33) 70 SEC (23-33) Sodium Level 137 MMOL/L (136-145) 138 MMOL/L (136-145) Potassium Level 3.4 MMOL/L (3.5-5.1) 4.1 MMOL/L (3.5-5.1) Chloride Level 107 MMOL/L (98-107) 106 MMOL/L (98-107) Carbon Dioxide Level 24 MMOL/L (21-32) 26 MMOL/L (21-32) Anion Gap 6 mmol/L (5-15) 6 mmol/L (5-15) Blood Urea Nitrogen 21 mg/dL (7-18) 18 mg/dL (7-18) Creatinine 1.0 MG/DL (0.55-1.30) 0.9 MG/DL (0.55-1.30) Estimat Glomerular Filtration Rate mL/min (>60) mL/min (>60) Glucose Level 171 MG/DL (74-106) 138 MG/DL (74-106) Calcium Level 7.5 MG/DL (8.5-10.1) 7.9 MG/DL (8.5-10.1) Phosphorus Level 2.6 MG/DL (2.5-4.9) 2.3 MG/DL (2.5-4.9) Magnesium Level 2.0 MG/DL (1.8-2.4) 1.7 MG/DL (1.8-2.4) Total Bilirubin 1.1 MG/DL (0.2-1.0) 1.1 MG/DL (0.2-1.0) Direct Bilirubin 0.6 MG/DL (0.0-0.3) 0.6 MG/DL (0.0-0.3) Aspartate Amino Transf (AST/SGOT) 15 U/L (15-37) 17 U/L (15-37) Alanine Aminotransferase (ALT/SGPT) < 6 U/L (12-78) < 6 U/L (12-78) Alkaline Phosphatase 57 U/L (46-116) 63 U/L (46-116) Total Protein 6.0 G/DL (6.4-8.2) 5.6 G/DL (6.4-8.2) Albumin 2.0 G/DL (3.4-5.0) 1.9 G/DL (3.4-5.0) Digoxin Level 1.6 NG/ML (0.5-2.0) Vancomycin Level Trough 15.3 ug/mL (5.0-12.0) Test 09/22/18 21:44 09/23/18 04:15 Arterial Blood pH 7.508 (7.350-7.450) Arterial Blood Partial Pressure CO2 30.8 mmHg (35.0-45.0) Arterial Blood Partial Pressure O2 59.5 mmHg (75.0-100.0) Arterial Blood HCO3 23.9 mmol/L (22.0-26.0) Arterial Blood Oxygen Saturation 92.5 % (95-100) Arterial Blood Base Excess 1.4 (-2-2) Asad Test N/a White Blood Count 9.8 K/UL (4.8-10.8) Red Blood Count 2.80 M/UL (4.70-6.10) Hemoglobin 9.3 G/DL (14.2-18.0) Hematocrit 29.7 % (42.0-52.0) Mean Corpuscular Volume 106 FL (80-99) Mean Corpuscular Hemoglobin 33.3 PG (27.0-31.0) Mean Corpuscular Hemoglobin Concent 31.4 G/DL (32.0-36.0) Red Cell Distribution Width 15.5 % (11.6-14.8) Platelet Count 143 K/UL (150-450) Mean Platelet Volume 9.5 FL (6.5-10.1) Neutrophils (%) (Auto) 77.4 % (45.0-75.0) Lymphocytes (%) (Auto) 12.3 % (20.0-45.0) Monocytes (%) (Auto) 8.1 % (1.0-10.0) Eosinophils (%) (Auto) 0.3 % (0.0-3.0) Basophils (%) (Auto) 1.9 % (0.0-2.0) Activated Partial Thromboplast Time 70 SEC (23-33) Sodium Level 134 MMOL/L (136-145) Potassium Level 4.3 MMOL/L (3.5-5.1) Chloride Level 102 MMOL/L (98-107) Carbon Dioxide Level 25 MMOL/L (21-32) Anion Gap 7 mmol/L (5-15) Blood Urea Nitrogen 24 mg/dL (7-18) Creatinine 1.2 MG/DL (0.55-1.30) Estimat Glomerular Filtration Rate mL/min (>60) Glucose Level 143 MG/DL (74-106) Calcium Level 8.2 MG/DL (8.5-10.1) Phosphorus Level 2.0 MG/DL (2.5-4.9) Magnesium Level 1.9 MG/DL (1.8-2.4) Total Bilirubin 1.2 MG/DL (0.2-1.0) Direct Bilirubin 0.6 MG/DL (0.0-0.3) Aspartate Amino Transf (AST/SGOT) 22 U/L (15-37) Alanine Aminotransferase (ALT/SGPT) 7 U/L (12-78) Alkaline Phosphatase 78 U/L (46-116) Total Protein 6.4 G/DL (6.4-8.2) Albumin 1.9 G/DL (3.4-5.0) Globulin 4.5 g/dL Albumin/Globulin Ratio 0.4 (1.0-2.7) Height (Feet): 5 Height (Inches): 8.00 Weight (Pounds): 131 Objective HEENT: + Face Mask LUNGS: Coarse rhonchi b/l CV: Irregular. S1 and S2 with no gallop or murmur. ABD: Soft, + PEG in place EXT: No pitting edema. Bruce Loya MD Sep 23, 2018 16:34
--- NOTE | 2018-09-23 18:41 | Nephrology Progress Note ---
Assessment/Plan Assessment 1. Prerenal azotemia and dehydration. 2. Hypocalcemia. 3. Hypomagnesemia. 4. Possible failure to thrive, . 5. Possible pneumonia. Plan dive extra dose of lasix replace mg monitoring renal function avoid NSAID replace electrolyte Subjective Subjective continue to be in icu no complaints his on his bedside Objective Objective Last 24 Hour Vital Signs Date Time Temp Pulse Resp B/P (MAP) Pulse Ox O2 Delivery O2 Flow Rate FiO2 09/23/18 18:30 108 48 93/69 (77) 100 09/23/18 18:15 108 48 91/68 (76) 100 09/23/18 18:00 108 48 93/69 (77) 100 09/23/18 18:00 93/68 09/23/18 17:45 105 48 103/69 (80) 100 09/23/18 17:30 108 48 93/71 (78) 100 09/23/18 17:15 107 24 95/71 (79) 97 09/23/18 17:00 106 24 87/69 (75) 97 09/23/18 17:00 95/71 09/23/18 16:45 105 24 90/73 (79) 97 09/23/18 16:30 90/69 09/23/18 16:30 105 24 88/66 (73) 97 09/23/18 16:15 106 24 85/66 (72) 97 09/23/18 16:00 99.4 108 24 86/70 (75) 97 09/23/18 16:00 74/56 09/23/18 16:00 Nasal Cannula 2.0 09/23/18 16:00 106 09/23/18 15:30 105 24 100/78 (85) 97 09/23/18 15:03 105 22 100 Nasal Cannula 3.0 32 09/23/18 15:00 104 24 105/70 (82) 100 09/23/18 14:55 104 23 100 Nasal Cannula 3.0 32 09/23/18 14:30 102 24 103/69 (80) 100 09/23/18 14:00 101 24 104/70 (81) 100 09/23/18 14:00 104/70 09/23/18 13:30 99.2 102 25 103/68 (80) 100 09/23/18 13:00 102 24 79/63 (68) 100 09/23/18 13:00 74/53 09/23/18 12:30 94 29 84/64 (71) 100 09/23/18 12:05 99.2 09/23/18 12:00 Nasal Cannula 2.0 09/23/18 12:00 108 28 92/73 (79) 100 09/23/18 12:00 108 09/23/18 12:00 92/73 09/23/18 11:33 109 23 100 Nasal Cannula 3.0 32 09/23/18 11:30 109 30 98/74 (82) 100 09/23/18 11:24 111 28 100 Nasal Cannula 3.0 32 09/23/18 11:00 108 28 95/75 (82) 98 09/23/18 10:00 103 24 104/77 (86) 98 09/23/18 09:00 98.9 103 24 108/88 (95) 98 09/23/18 08:56 103 09/23/18 08:30 103 24 95/70 (78) 98 09/23/18 08:00 105 09/23/18 08:00 104 23 96/71 (79) 99 09/23/18 08:00 Nasal Cannula 2.0 09/23/18 07:30 102 25 93/70 (78) 100 09/23/18 07:07 Nasal Cannula 3.0 32 09/23/18 07:07 99 Nasal Cannula 3.0 32 09/23/18 07:07 Nasal Cannula 3.0 32 09/23/18 07:00 99 26 93/70 (78) 99 09/23/18 06:30 104 27 94/69 (77) 100 09/23/18 06:00 103 29 96/70 (79) 100 09/23/18 06:00 97/71 09/23/18 05:30 103 26 95/68 (77) 100 09/23/18 05:00 103 25 88/71 (77) 100 09/23/18 05:00 95/69 09/23/18 04:56 101/75 09/23/18 04:30 105 26 95/70 (78) 97 09/23/18 04:00 Nasal Cannula 2.0 09/23/18 04:00 111 09/23/18 04:00 98.6 120 33 104/86 (92) 97 09/23/18 03:30 106 29 92/74 (80) 97 09/23/18 03:22 110 27 99 Nasal Cannula 4.0 36 09/23/18 03:10 102 30 97 Nasal Cannula 4.0 36 09/23/18 03:00 112 31 93/73 (80) 97 09/23/18 02:34 90/71 09/23/18 02:30 108 30 91/72 (78) 97 09/23/18 02:00 106 29 92/71 (78) 97 09/23/18 01:30 109 30 89/74 (79) 97 09/23/18 01:00 108 28 89/70 (76) 99 09/23/18 00:30 112 32 93/69 (77) 98 09/23/18 00:00 113 09/23/18 00:00 Nasal Cannula 2.0 09/23/18 00:00 98.0 114 32 96/67 (77) 99 09/22/18 23:30 117 33 91/69 (76) 99 09/22/18 23:00 124 35 98/72 (81) 98 09/22/18 22:30 130 38 95/75 (82) 97 09/22/18 22:21 Nasal Cannula 09/22/18 22:20 137 33 96 Nasal Cannula 4.0 36 09/22/18 22:00 139 35 106/91 (96) 97 09/22/18 21:30 143 30 120/106 (111) 98 09/22/18 21:00 126 31 106/81 (89) 97 09/22/18 20:45 119 29 101/74 (83) 97 09/22/18 20:30 107 43 96/71 (79) 98 09/22/18 20:23 95/72 09/22/18 20:15 108 46 95/72 (80) 97 09/22/18 20:00 Nasal Cannula 2.0 09/22/18 20:00 98.3 121 28 99/77 (84) 97 09/22/18 20:00 114 09/22/18 19:45 110 47 91/71 (78) 96 09/22/18 19:44 105 24 97 Nasal Cannula 3.0 32 09/22/18 19:34 97 Nasal Cannula 3.0 32 09/22/18 19:32 114 24 96 Nasal Cannula 3.0 32 09/22/18 19:30 114 39 98/77 (84) 100 09/22/18 19:15 108 36 95/73 (80) 97 09/22/18 19:00 111 31 94/71 (79) 97 09/22/18 19:00 95/73 09/22/18 19:00 [id number] Intake and Output 09/22/18 09/23/18 18:59 06:59 Intake Total 2350.529 ml 1434.113 ml Output Total 1640 ml 665 ml Balance 710.529 ml 769.113 ml Intake Free Water 300 ml 150 ml IV Total 1425.529 ml 634.113 ml Tube Feeding 625 ml 650 ml Output Urine Total 1640 ml 665 ml Laboratory Tests 09/22/18 21:44: Arterial Blood pH 7.508H, Arterial Blood Partial Pressure CO2 30.8L, Arterial Blood Partial Pressure O2 59.5L, Arterial Blood HCO3 23.9, Arterial Blood Oxygen Saturation 92.5L, Arterial Blood Base Excess 1.4, Asad Test N/a 09/23/18 04:15: White Blood Count 9.8, Red Blood Count 2.80L, Hemoglobin 9.3L, Hematocrit 29.7L , Mean Corpuscular Volume 106H, Mean Corpuscular Hemoglobin 33.3H, Mean Corpuscular Hemoglobin Concent 31.4L, Red Cell Distribution Width 15.5H, Platelet Count 143L, Mean Platelet Volume 9.5, Neutrophils (%) (Auto) 77.4H, Lymphocytes (%) (Auto) 12.3L, Monocytes (%) (Auto) 8.1, Eosinophils (%) (Auto) 0.3, Basophils (%) (Auto) 1.9, Activated Partial Thromboplast Time 70H, Sodium Level 134L, Potassium Level 4.3, Chloride Level 102, Carbon Dioxide Level 25, Anion Gap 7, Blood Urea Nitrogen 24H, Creatinine 1.2, Estimat Glomerular Filtration Rate , Glucose Level 143H, Calcium Level 8.2L, Phosphorus Level 2.0L , Magnesium Level 1.9, Total Bilirubin 1.2H, Direct Bilirubin 0.6H, Aspartate Amino Transf (AST/SGOT) 22, Alanine Aminotransferase (ALT/SGPT) 7L, Alkaline Phosphatase 78, Total Protein 6.4, Albumin 1.9L, Globulin 4.5, Albumin/Globulin Ratio 0.4L Height (Feet): 5 Height (Inches): 8.00 Weight (Pounds): 131 Objective HEAD AND NECK: No JVP. No LAD. No thyromegaly. Bitemporal wasting. Mucous membranes are dry. LUNGS: Bilateral rhonchi. CARDIAC: Regular rate and rhythm. S1 and S2. No murmur. No rub. ABDOMEN: Soft, nontender, and nondistended. EXTREMITIES: No edema. No clubbing. No cyanosis. Tiffanie Huber MD Sep 23, 2018 18:41
[2018-09-23] MEDS: Dyna-Hex 2% Top Sol 2oz TOPIC SCH (19:59)
--- NOTE | 2018-09-23 22:52 | General Progress Note ---
Assessment/Plan Problem List: (1) Atrial fibrillation ICD Codes: I48.91 - Unspecified atrial fibrillation SNOMED: 32638194 (2) Anemia ICD Codes: D64.9 - Anemia, unspecified SNOMED: 847724499 (3) Severe protein-calorie malnutrition ICD Codes: E43 - Unspecified severe protein-calorie malnutrition SNOMED: 492197462, 732758743, 735210724 (4) Encounter for PEG (percutaneous endoscopic gastrostomy) ICD Codes: Z43.1 - Encounter for attention to gastrostomy SNOMED: 609074130, 780160367 (5) Altered level of consciousness ICD Codes: R40.4 - Transient alteration of awareness SNOMED: 7139916 (6) Hypotension ICD Codes: I95.9 - Hypotension, unspecified SNOMED: 23003013 Status: unchanged Assessment/Plan: a fib w rvr peg s/p VT very poor prognosis i spoke w re dnr however she wants everything done for time being getting worse on drips Subjective ROS Limited/Unobtainable: Yes Allergies: Coded Allergies: No Known Allergies (Unverified , 01/07/18) Objective Last 24 Hour Vital Signs Date Time Temp Pulse Resp B/P (MAP) Pulse Ox O2 Delivery O2 Flow Rate FiO2 09/23/18 22:30 102 24 91/69 (76) 95 09/23/18 22:00 112 25 92/66 (75) 95 09/23/18 22:00 91/68 09/23/18 21:30 108 25 100/70 (80) 97 09/23/18 21:00 100/70 09/23/18 21:00 112 19 92/69 (77) 98 09/23/18 20:30 119 34 103/76 (85) 100 09/23/18 20:00 99.0 112 43 95/68 (77) 100 09/23/18 20:00 Nasal Cannula 2.0 09/23/18 20:00 112 09/23/18 20:00 98/72 09/23/18 20:00 98/72 09/23/18 19:35 112 25 100 Nasal Cannula 3.0 32 09/23/18 19:30 113 38 98/72 (81) 100 09/23/18 19:25 100 Nasal Cannula 3.0 32 09/23/18 19:25 112 24 100 Nasal Cannula 3.0 32 09/23/18 19:00 96/69 8 19:00 110 32 96/67 (77) 100 09/23/18 18:30 108 48 93/69 (77) 100 09/23/18 18:15 108 48 91/68 (76) 100 09/23/18 18:00 108 48 93/69 (77) 100 09/23/18 18:00 93/68 09/23/18 17:45 105 48 103/69 (80) 100 09/23/18 17:30 108 48 93/71 (78) 100 09/23/18 17:15 107 24 95/71 (79) 97 09/23/18 17:00 106 24 87/69 (75) 97 09/23/18 17:00 95/71 09/23/18 16:45 105 24 90/73 (79) 97 09/23/18 16:30 90/69 09/23/18 16:30 105 24 88/66 (73) 97 09/23/18 16:15 106 24 85/66 (72) 97 09/23/18 16:00 99.4 108 24 86/70 (75) 97 09/23/18 16:00 74/56 09/23/18 16:00 Nasal Cannula 2.0 09/23/18 16:00 106 09/23/18 15:30 105 24 100/78 (85) 97 09/23/18 15:03 105 22 100 Nasal Cannula 3.0 32 09/23/18 15:00 104 24 105/70 (82) 100 09/23/18 14:55 104 23 100 Nasal Cannula 3.0 32 09/23/18 14:30 102 24 103/69 (80) 100 09/23/18 14:00 101 24 104/70 (81) 100 09/23/18 14:00 104/70 09/23/18 13:30 99.2 102 25 103/68 (80) 100 09/23/18 13:00 102 24 79/63 (68) 100 09/23/18 13:00 74/53 09/23/18 12:30 94 29 84/64 (71) 100 09/23/18 12:05 99.2 09/23/18 12:00 Nasal Cannula 2.0 09/23/18 12:00 108 28 92/73 (79) 100 09/23/18 12:00 108 09/23/18 12:00 92/73 09/23/18 11:33 109 23 100 Nasal Cannula 3.0 32 09/23/18 11:30 109 30 98/74 (82) 100 09/23/18 11:24 111 28 100 Nasal Cannula 3.0 32 09/23/18 11:00 108 28 95/75 (82) 98 09/23/18 10:00 103 24 104/77 (86) 98 09/23/18 09:00 98.9 103 24 108/88 (95) 98 09/23/18 08:56 103 09/23/18 08:30 103 24 95/70 (78) 98 09/23/18 08:00 105 09/23/18 08:00 104 23 96/71 (79) 99 09/23/18 08:00 Nasal Cannula 2.0 09/23/18 07:30 102 25 93/70 (78) 100 09/23/18 07:07 Nasal Cannula 3.0 32 09/23/18 07:07 99 Nasal Cannula 3.0 32 09/23/18 07:07 Nasal Cannula 3.0 32 09/23/18 07:00 99 26 93/70 (78) 99 09/23/18 06:30 104 27 94/69 (77) 100 09/23/18 06:00 103 29 96/70 (79) 100 09/23/18 06:00 97/71 09/23/18 05:30 103 26 95/68 (77) 100 09/23/18 05:00 103 25 88/71 (77) 100 09/23/18 05:00 95/69 09/23/18 04:56 101/75 09/23/18 04:30 105 26 95/70 (78) 97 09/23/18 04:00 Nasal Cannula 2.0 09/23/18 04:00 111 09/23/18 04:00 98.6 120 33 104/86 (92) 97 09/23/18 03:30 106 29 92/74 (80) 97 09/23/18 03:22 110 27 99 Nasal Cannula 4.0 36 09/23/18 03:10 102 30 97 Nasal Cannula 4.0 36 09/23/18 03:00 112 31 93/73 (80) 97 09/23/18 02:34 90/71 09/23/18 02:30 108 30 91/72 (78) 97 09/23/18 02:00 106 29 92/71 (78) 97 09/23/18 01:30 109 30 89/74 (79) 97 09/23/18 01:00 108 28 89/70 (76) 99 09/23/18 00:30 112 32 93/69 (77) 98 09/23/18 00:00 113 09/23/18 00:00 Nasal Cannula 2.0 09/23/18 00:00 98.0 114 32 96/67 (77) 99 09/22/18 23:30 117 33 91/69 (76) 99 09/22/18 23:00 124 35 98/72 (81) 98 Intake and Output 09/22/18 09/23/18 19:00 07:00 Intake Total 2313.912 ml 1433.630 ml Output Total 1625 ml 590 ml Balance 688.912 ml 843.630 ml Intake Free Water 300 ml 150 ml IV Total 1393.912 ml 633.630 ml Tube Feeding 620 ml 650 ml Output Urine Total 1625 ml 590 ml Laboratory Tests 09/23/18 04:15: White Blood Count 9.8, Red Blood Count 2.80L, Hemoglobin 9.3L, Hematocrit 29.7L , Mean Corpuscular Volume 106H, Mean Corpuscular Hemoglobin 33.3H, Mean Corpuscular Hemoglobin Concent 31.4L, Red Cell Distribution Width 15.5H, Platelet Count 143L, Mean Platelet Volume 9.5, Neutrophils (%) (Auto) 77.4H, Lymphocytes (%) (Auto) 12.3L, Monocytes (%) (Auto) 8.1, Eosinophils (%) (Auto) 0.3, Basophils (%) (Auto) 1.9, Activated Partial Thromboplast Time 70H, Sodium Level 134L, Potassium Level 4.3, Chloride Level 102, Carbon Dioxide Level 25, Anion Gap 7, Blood Urea Nitrogen 24H, Creatinine 1.2, Estimat Glomerular Filtration Rate , Glucose Level 143H, Calcium Level 8.2L, Phosphorus Level 2.0L , Magnesium Level 1.9, Total Bilirubin 1.2H, Direct Bilirubin 0.6H, Aspartate Amino Transf (AST/SGOT) 22, Alanine Aminotransferase (ALT/SGPT) 7L, Alkaline Phosphatase 78, Total Protein 6.4, Albumin 1.9L, Globulin 4.5, Albumin/Globulin Ratio 0.4L Height (Feet): 5 Height (Inches): 8.00 Weight (Pounds): 131 General Appearance: lethargic, confused Inocencia Watt MD Sep 23, 2018 22:52
[2018-09-24] VITALS (52 sets, daily range): BP systolic 78–114; BP diastolic 58–87
[2018-09-24] MEDS: Norepinephrine Bitartrate 16 MG in D5W 500ml 500 ML IV SCH ×2 (00:14→04:17)
[2018-09-24] MEDS: Albuterol/Ipratropium 3ml neb HHN SCH ×6 (03:29→22:57)
[2018-09-24 05:03] LABS: BASOPHILS % (AUTO) 0.8 % (0.0-2.0); EOSINOPHILS % (AUTO) 1.2 % (0.0-3.0); HEMATOCRIT 26.8 % (42.0-52.0); HEMOGLOBIN 8.4 G/DL (14.2-18.0); LYMPHOCYTES % (AUTO) 14.3 % (20.0-45.0); MEAN CORPUSCULAR VOLUME 106 FL (80-99); NEUTROPHILS % (AUTO) 75.7 % (45.0-75.0); PLATELET COUNT 155 K/UL (150-450); RED BLOOD COUNT 2.53 M/UL (4.70-6.10); RED CELL DISTRIBUTION WIDTH 15.3 % (11.6-14.8)
[2018-09-24 05:33] LABS: ANION GAP 8 mmol/L (5-15); BLOOD UREA NITROGEN 30 mg/dL (7-18); CALCIUM 8.1 MG/DL (8.5-10.1); CARBON DIOXIDE 27 MMOL/L (21-32); CHLORIDE 104 MMOL/L (98-107); CREATININE 1.2 MG/DL (0.55-1.30); POTASSIUM 4.6 MMOL/L (3.5-5.1); SODIUM 139 MMOL/L (136-145)
[2018-09-24] MEDS: Piperacillin/Tazobactam 4.5 GM in NS 110 ML IVPB SCH ×3 (06:07→22:00)
[2018-09-24] MEDS: Heparin 25,000u/D5W 500ml (VTE/AF) IV SCH ×2 (07:15→17:14)
--- NOTE | 2018-09-24 08:29 | General Progress Note ---
Assessment/Plan Status: unchanged Assessment/Plan: 1. Hypertension. 2. History of non-ST elevation myocardial infarction. 3. Severe cardiomyopathy with EF of 20%. 4. Atrial flutter. 5. Right leg DVT. 6. Dysphagia with G-tube placement in last admission. GTF will change to vital AF given diarrhea abx per ID fu labs rectal tube imodium prn fu atool for C.diff Subjective ROS Limited/Unobtainable: No Allergies: Coded Allergies: No Known Allergies (Unverified , 01/07/18) Objective Last 24 Hour Vital Signs Date Time Temp Pulse Resp B/P (MAP) Pulse Ox O2 Delivery O2 Flow Rate FiO2 09/24/18 07:53 77/62 09/24/18 07:44 102 27 100 Nasal Cannula 2.0 28 09/24/18 07:35 100 Nasal Cannula 3.0 32 09/24/18 07:35 110 30 100 Nasal Cannula 3.0 32 09/24/18 07:00 101 25 90/72 (78) 100 09/24/18 07:00 90/72 09/24/18 06:30 99 25 78/61 (67) 100 09/24/18 06:00 83/61 09/24/18 06:00 103 33 83/61 (68) 100 09/24/18 05:30 100 22 87/58 (68) 100 09/24/18 05:00 100 19 86/62 (70) 100 09/24/18 05:00 87/58 09/24/18 04:30 106 22 82/60 (67) 100 09/24/18 04:17 87/71 09/24/18 04:00 Nasal Cannula 2.0 09/24/18 04:00 107 09/24/18 04:00 98.9 107 26 87/71 (76) 100 09/24/18 03:39 108 24 100 Nasal Cannula 3.0 32 09/24/18 03:30 101 30 89/67 (74) 100 09/24/18 03:29 106 26 100 Nasal Cannula 3.0 32 09/24/18 03:00 105 23 89/64 (72) 97 09/24/18 02:30 117 29 105/81 (89) 09/24/18 02:00 108 34 86/67 (73) 94 09/24/18 01:30 110 30 89/62 (71) 96 8/7/19 01:00 109 35 88/67 (74) 100 09/24/18 00:30 109 28 94/67 (76) 100 09/24/18 00:14 88/71 09/24/18 00:00 109 09/24/18 00:00 98.5 109 29 88/71 (77) 100 09/24/18 00:00 88/71 09/24/18 00:00 Nasal Cannula 2.0 09/23/18 23:42 110 26 100 Nasal Cannula 3.0 32 09/23/18 23:31 110 24 100 Nasal Cannula 3.0 32 09/23/18 23:30 110 29 95/69 (78) 100 09/23/18 23:00 108 25 98/61 (73) 100 09/23/18 23:00 93/69 09/23/18 22:30 102 24 91/69 (76) 95 09/23/18 22:00 112 25 92/66 (75) 95 09/23/18 22:00 91/68 09/23/18 21:30 108 25 100/70 (80) 97 09/23/18 21:00 100/70 09/23/18 21:00 112 19 92/69 (77) 98 09/23/18 20:30 119 34 103/76 (85) 100 09/23/18 20:00 99.0 112 43 95/68 (77) 100 09/23/18 20:00 Nasal Cannula 2.0 09/23/18 20:00 112 09/23/18 20:00 98/72 09/23/18 20:00 98/72 09/23/18 19:35 112 25 100 Nasal Cannula 3.0 32 09/23/18 19:30 113 38 98/72 (81) 100 09/23/18 19:25 100 Nasal Cannula 3.0 32 09/23/18 19:25 112 24 100 Nasal Cannula 3.0 32 09/23/18 19:00 96/69 09/23/18 19:00 110 32 96/67 (77) 100 09/23/18 18:30 108 48 93/69 (77) 100 09/23/18 18:15 108 48 91/68 (76) 100 09/23/18 18:00 108 48 93/69 (77) 100 09/23/18 18:00 93/68 09/23/18 17:45 105 48 103/69 (80) 100 09/23/18 17:30 108 48 93/71 (78) 100 09/23/18 17:15 107 24 95/71 (79) 97 09/23/18 17:00 106 24 87/69 (75) 97 09/23/18 17:00 95/71 09/23/18 16:45 105 24 90/73 (79) 97 09/23/18 16:30 90/69 09/23/18 16:30 105 24 88/66 (73) 97 09/23/18 16:15 106 24 85/66 (72) 97 09/23/18 16:00 99.4 108 24 86/70 (75) 97 09/23/18 16:00 74/56 09/23/18 16:00 Nasal Cannula 2.0 09/23/18 16:00 106 09/23/18 15:30 105 24 100/78 (85) 97 09/23/18 15:03 105 22 100 Nasal Cannula 3.0 32 09/23/18 15:00 104 24 105/70 (82) 100 09/23/18 14:55 104 23 100 Nasal Cannula 3.0 32 09/23/18 14:30 102 24 103/69 (80) 100 09/23/18 14:00 101 24 104/70 (81) 100 09/23/18 14:00 104/70 09/23/18 13:30 99.2 102 25 103/68 (80) 100 09/23/18 13:00 102 24 79/63 (68) 100 09/23/18 13:00 74/53 09/23/18 12:30 94 29 84/64 (71) 100 09/23/18 12:05 99.2 09/23/18 12:00 Nasal Cannula 2.0 09/23/18 12:00 108 28 92/73 (79) 100 09/23/18 12:00 108 09/23/18 12:00 92/73 09/23/18 11:33 109 23 100 Nasal Cannula 3.0 32 09/23/18 11:30 109 30 98/74 (82) 100 09/23/18 11:24 111 28 100 Nasal Cannula 3.0 32 09/23/18 11:00 108 28 95/75 (82) 98 09/23/18 10:00 103 24 104/77 (86) 98 09/23/18 09:00 98.9 103 24 108/88 (95) 98 09/23/18 08:56 103 09/23/18 08:30 103 24 95/70 (78) 98 Intake and Output 09/23/18 09/24/18 19:00 07:00 Intake Total 1479.27 ml 1313.82 ml Output Total 1000 ml 1130 ml Balance 479.27 ml 183.82 ml Intake Free Water 150 ml 30 ml IV Total 879.27 ml 683.82 ml Tube Feeding 450 ml 600 ml Output Urine Total 1000 ml 1130 ml # Bowel Movements 3 Laboratory Tests 09/24/18 04:00: White Blood Count 8.0, Red Blood Count 2.53L, Hemoglobin 8.4L, Hematocrit 26.8L , Mean Corpuscular Volume 106H, Mean Corpuscular Hemoglobin 33.4H, Mean Corpuscular Hemoglobin Concent 31.5L, Red Cell Distribution Width 15.3H, Platelet Count 155, Mean Platelet Volume 10.3H, Neutrophils (%) (Auto) 75.7H, Lymphocytes (%) (Auto) 14.3L, Monocytes (%) (Auto) 8.0, Eosinophils (%) (Auto) 1.2, Basophils (%) (Auto) 0.8, Activated Partial Thromboplast Time 69H, Sodium Level 139, Potassium Level 4.6, Chloride Level 104, Carbon Dioxide Level 27, Anion Gap 8, Blood Urea Nitrogen 30H, Creatinine 1.2, Estimat Glomerular Filtration Rate , Glucose Level 142H, Calcium Level 8.1L Height (Feet): 5 Height (Inches): 8.00 Weight (Pounds): 129 General Appearance: lethargic Neck: supple Cardiovascular: normal rate Respiratory/Chest: decreased breath sounds Abdomen: normal bowel sounds, non tender, soft Phoenix Boo MD Sep 24, 2018 08:29
[2018-09-24] MEDS: Pantoprazole Inj IVP SCH (09:14)
[2018-09-24] MEDS: Digoxin 0.125mg tab PEG SCH (09:16)
[2018-09-24] MEDS: Aspirin Baby 81mg GT SCH (09:16)
--- NOTE | 2018-09-24 12:13 | Cardiac Electrophysiology PN ---
Assessment/Plan Assessment/Plan 1. Atrial flutter with rapid ventricular response 140s. HR 100s. Off Coreg for low BP and is on Dobutamine. Had atrial flutter in December 2017 and previous admission also. Too sick for flutter ablation. Dig level 0.5. On Dig o.125 daily 2. Cardiogenic and septic shock EF 15%. Cardiac catheterization by me in December 2017 no CAD. Off all CHF meds (Cozaar 25 mg daily, Aldactone 12.5 mg daily, and Coreg 3.125 mg b.i.d) Decrease Dobutamine to 2 mc/min. On Levophed 12 mcg as well 3. 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 15 beats of nonsustained VT. Due to severe non ischemic CMP. Consider ICD if longevity felt > 1 year and after infection resolves 5. History of hypertension. 6. Severe MAIK 0.3 7. Dysphagia, S/P PEG 8. History of DVT on heparin drip 9. Bacteremia due to Sepsis/ SIRS. On iv Abx and Levophed per Dr Nicole MARADIAGA RN and Subjective Subjective In ICU on Levophed 12 mc. Off Dobutamine 3 mcg and heparin drip. Still in atrial flutter rate around 102. and RN at bedside Objective Last 24 Hour Vital Signs Date Time Temp Pulse Resp B/P (MAP) Pulse Ox O2 Delivery O2 Flow Rate FiO2 09/24/18 11:30 112 25 90/67 (75) 99 09/24/18 11:23 112 28 100 Nasal Cannula 2.0 28 09/24/18 11:15 106 29 100 Nasal Cannula 2.0 28 09/24/18 11:00 108 25 85/68 (74) 99 09/24/18 10:30 110 30 96/64 (75) 99 09/24/18 10:00 112 27 89/67 (74) 99 09/24/18 09:30 110 31 92/66 (75) 100 09/24/18 09:16 115 09/24/18 09:00 111 30 90/64 (73) 98 09/24/18 08:45 113 31 88/63 (71) 97 09/24/18 08:30 112 35 84/63 (70) 98 09/24/18 08:15 106 25 82/62 (69) 100 09/24/18 08:00 98.8 104 29 82/64 (70) 100 09/24/18 08:00 109 09/24/18 08:00 Nasal Cannula 2.0 09/24/18 07:53 77/62 09/24/18 07:44 102 27 100 Nasal Cannula 2.0 28 09/24/18 07:35 100 Nasal Cannula 3.0 32 09/24/18 07:35 110 30 100 Nasal Cannula 3.0 32 09/24/18 07:30 108 27 83/66 (72) 99 09/24/18 07:00 101 25 90/72 (78) 100 09/24/18 07:00 90/72 09/24/18 06:30 99 25 78/61 (67) 100 09/24/18 06:00 83/61 09/24/18 06:00 103 33 83/61 (68) 100 09/24/18 05:30 100 22 87/58 (68) 100 09/24/18 05:00 100 19 86/62 (70) 100 09/24/18 05:00 87/58 09/24/18 04:30 106 22 82/60 (67) 100 09/24/18 04:17 87/71 09/24/18 04:00 Nasal Cannula 2.0 09/24/18 04:00 107 09/24/18 04:00 98.9 107 26 87/71 (76) 100 09/24/18 03:39 108 24 100 Nasal Cannula 3.0 32 09/24/18 03:30 101 30 89/67 (74) 100 09/24/18 03:29 106 26 100 Nasal Cannula 3.0 32 09/24/18 03:00 105 23 89/64 (72) 97 09/24/18 02:30 117 29 105/81 (89) 09/24/18 02:00 108 34 86/67 (73) 94 09/24/18 01:30 110 30 89/62 (71) 96 09/24/18 01:00 109 35 88/67 (74) 100 09/24/18 00:30 109 28 94/67 (76) 100 09/24/18 00:14 88/71 09/24/18 00:00 109 09/24/18 00:00 98.5 109 29 88/71 (77) 100 09/24/18 00:00 88/71 09/24/18 00:00 Nasal Cannula 2.0 09/23/18 23:42 110 26 100 Nasal Cannula 3.0 32 09/23/18 23:31 110 24 100 Nasal Cannula 3.0 32 09/23/18 23:30 110 29 95/69 (78) 100 09/23/18 23:00 108 25 98/61 (73) 100 09/23/18 23:00 93/69 09/23/18 22:30 102 24 91/69 (76) 95 09/23/18 22:00 112 25 92/66 (75) 95 09/23/18 22:00 91/68 09/23/18 21:30 108 25 100/70 (80) 97 09/23/18 21:00 100/70 09/23/18 21:00 112 19 92/69 (77) 98 09/23/18 20:30 119 34 103/76 (85) 100 09/23/18 20:00 99.0 112 43 95/68 (77) 100 09/23/18 20:00 Nasal Cannula 2.0 09/23/18 20:00 112 09/23/18 20:00 98/72 09/23/18 20:00 98/72 09/23/18 19:35 112 25 100 Nasal Cannula 3.0 32 09/23/18 19:30 113 38 98/72 (81) 100 09/23/18 19:25 100 Nasal Cannula 3.0 32 09/23/18 19:25 112 24 100 Nasal Cannula 3.0 32 09/23/18 19:00 96/69 09/23/18 19:00 110 32 96/67 (77) 100 09/23/18 18:30 108 48 93/69 (77) 100 09/23/18 18:15 108 48 91/68 (76) 100 09/23/18 18:00 108 48 93/69 (77) 100 09/23/18 18:00 93/68 09/23/18 17:45 105 48 103/69 (80) 100 09/23/18 17:30 108 48 93/71 (78) 100 09/23/18 17:15 107 24 95/71 (79) 97 09/23/18 17:00 106 24 87/69 (75) 97 09/23/18 17:00 95/71 09/23/18 16:45 105 24 90/73 (79) 97 09/23/18 16:30 90/69 09/23/18 16:30 105 24 88/66 (73) 97 09/23/18 16:15 106 24 85/66 (72) 97 09/23/18 16:00 99.4 108 24 86/70 (75) 97 09/23/18 16:00 74/56 09/23/18 16:00 Nasal Cannula 2.0 09/23/18 16:00 106 09/23/18 15:30 105 24 100/78 (85) 97 09/23/18 15:03 105 22 100 Nasal Cannula 3.0 32 09/23/18 15:00 104 24 105/70 (82) 100 09/23/18 14:55 104 23 100 Nasal Cannula 3.0 32 09/23/18 14:30 102 24 103/69 (80) 100 09/23/18 14:00 101 24 104/70 (81) 100 09/23/18 14:00 104/70 09/23/18 13:30 99.2 102 25 103/68 (80) 100 09/23/18 13:00 102 24 79/63 (68) 100 09/23/18 13:00 74/53 09/23/18 12:30 94 29 84/64 (71) 100 Intake and Output 09/23/18 09/24/18 19:00 07:00 Intake Total 1479.27 ml 1313.82 ml Output Total 1000 ml 1130 ml Balance 479.27 ml 183.82 ml Intake Free Water 150 ml 30 ml IV Total 879.27 ml 683.82 ml Tube Feeding 450 ml 600 ml Output Urine Total 1000 ml 1130 ml # Bowel Movements 3 Laboratory Tests Test 09/24/18 04:00 White Blood Count 8.0 K/UL (4.8-10.8) Red Blood Count 2.53 M/UL (4.70-6.10) L Hemoglobin 8.4 G/DL (14.2-18.0) L Hematocrit 26.8 % (42.0-52.0) L Mean Corpuscular Volume 106 FL (80-99) H Mean Corpuscular Hemoglobin 33.4 PG (27.0-31.0) H Mean Corpuscular Hemoglobin Concent 31.5 G/DL (32.0-36.0) L Red Cell Distribution Width 15.3 % (11.6-14.8) H Platelet Count 155 K/UL (150-450) Mean Platelet Volume 10.3 FL (6.5-10.1) H Neutrophils (%) (Auto) 75.7 % (45.0-75.0) H Lymphocytes (%) (Auto) 14.3 % (20.0-45.0) L Monocytes (%) (Auto) 8.0 % (1.0-10.0) Eosinophils (%) (Auto) 1.2 % (0.0-3.0) Basophils (%) (Auto) 0.8 % (0.0-2.0) Activated Partial Thromboplast Time 69 SEC (23-33) H Sodium Level 139 MMOL/L (136-145) Potassium Level 4.6 MMOL/L (3.5-5.1) Chloride Level 104 MMOL/L (98-107) Carbon Dioxide Level 27 MMOL/L (21-32) Anion Gap 8 mmol/L (5-15) Blood Urea Nitrogen 30 mg/dL (7-18) H Creatinine 1.2 MG/DL (0.55-1.30) Estimat Glomerular Filtration Rate mL/min (>60) Glucose Level 142 MG/DL (74-106) H Calcium Level 8.1 MG/DL (8.5-10.1) L Objective HEAD AND NECK: Face Mask with positive JVD. LUNGS: Coarse rhonchi. CARDIOVASCULAR: Irregular. S1 and S2 with no gallop or murmur. ABDOMEN: Soft.PEG in place EXTREMITIES: No pitting edema. Antonio Conde MD Sep 24, 2018 12:13
[2018-09-24] MEDS: DOBUTamine 250mg/250ml Premix 250 ML IV SCH ×2 (12:59→19:55)
--- NOTE | 2018-09-24 13:21 | Nephrology Progress Note ---
Assessment/Plan Assessment 1. Prerenal azotemia and dehydration. 2. Hypocalcemia. 3. Hypomagnesemia. 4. Possible failure to thrive, . 5. Possible pneumonia. Plan check vit D replace mg monitoring renal function avoid NSAID replace electrolyte Subjective ROS Limited/Unobtainable: Yes Subjective continue to be in icu seems to be more confused today his on his bedside Objective Objective Last 24 Hour Vital Signs Date Time Temp Pulse Resp B/P (MAP) Pulse Ox O2 Delivery O2 Flow Rate FiO2 09/24/18 13:00 84/67 09/24/18 12:59 88/68 09/24/18 11:30 112 25 90/67 (75) 99 09/24/18 11:23 112 28 100 Nasal Cannula 2.0 28 09/24/18 11:15 106 29 100 Nasal Cannula 2.0 28 09/24/18 11:00 108 25 85/68 (74) 99 09/24/18 10:30 110 30 96/64 (75) 99 09/24/18 10:00 112 27 89/67 (74) 99 09/24/18 09:30 110 31 92/66 (75) 100 09/24/18 09:16 115 09/24/18 09:00 111 30 90/64 (73) 98 09/24/18 08:45 113 31 88/63 (71) 97 09/24/18 08:30 112 35 84/63 (70) 98 09/24/18 08:15 106 25 82/62 (69) 100 09/24/18 08:00 98.8 104 29 82/64 (70) 100 09/24/18 08:00 109 09/24/18 08:00 Nasal Cannula 2.0 09/24/18 07:53 77/62 09/24/18 07:44 102 27 100 Nasal Cannula 2.0 28 09/24/18 07:35 100 Nasal Cannula 3.0 32 09/24/18 07:35 110 30 100 Nasal Cannula 3.0 32 09/24/18 07:30 108 27 83/66 (72) 99 09/24/18 07:00 101 25 90/72 (78) 100 09/24/18 07:00 90/72 09/24/18 06:30 99 25 78/61 (67) 100 09/24/18 06:00 83/61 09/24/18 06:00 103 33 83/61 (68) 100 09/24/18 05:30 100 22 87/58 (68) 100 09/24/18 05:00 100 19 86/62 (70) 100 09/24/18 05:00 87/58 09/24/18 04:30 106 22 82/60 (67) 100 09/24/18 04:17 87/71 09/24/18 04:00 Nasal Cannula 2.0 09/24/18 04:00 107 09/24/18 04:00 98.9 107 26 87/71 (76) 100 09/24/18 03:39 108 24 100 Nasal Cannula 3.0 32 09/24/18 03:30 101 30 89/67 (74) 100 09/24/18 03:29 106 26 100 Nasal Cannula 3.0 32 09/24/18 03:00 105 23 89/64 (72) 97 09/24/18 02:30 117 29 105/81 (89) 09/24/18 02:00 108 34 86/67 (73) 94 09/24/18 01:30 110 30 89/62 (71) 96 09/24/18 01:00 109 35 88/67 (74) 100 09/24/18 00:30 109 28 94/67 (76) 100 09/24/18 00:14 88/71 09/24/18 00:00 109 09/24/18 00:00 98.5 109 29 88/71 (77) 100 09/24/18 00:00 88/71 09/24/18 00:00 Nasal Cannula 2.0 09/23/18 23:42 110 26 100 Nasal Cannula 3.0 32 09/23/18 23:31 110 24 100 Nasal Cannula 3.0 32 09/23/18 23:30 110 29 95/69 (78) 100 09/23/18 23:00 108 25 98/61 (73) 100 09/23/18 23:00 93/69 09/23/18 22:30 102 24 91/69 (76) 95 09/23/18 22:00 112 25 92/66 (75) 95 09/23/18 22:00 91/68 09/23/18 21:30 108 25 100/70 (80) 97 09/23/18 21:00 100/70 09/23/18 21:00 112 19 92/69 (77) 98 09/23/18 20:30 119 34 103/76 (85) 100 09/23/18 20:00 99.0 112 43 95/68 (77) 100 09/23/18 20:00 Nasal Cannula 2.0 09/23/18 20:00 112 09/23/18 20:00 98/72 09/23/18 20:00 98/72 09/23/18 19:35 112 25 100 Nasal Cannula 3.0 32 09/23/18 19:30 113 38 98/72 (81) 100 09/23/18 19:25 100 Nasal Cannula 3.0 32 09/23/18 19:25 112 24 100 Nasal Cannula 3.0 32 09/23/18 19:00 96/69 09/23/18 19:00 110 32 96/67 (77) 100 09/23/18 18:30 108 48 93/69 (77) 100 09/23/18 18:15 108 48 91/68 (76) 100 09/23/18 18:00 108 48 93/69 (77) 100 09/23/18 18:00 93/68 09/23/18 17:45 105 48 103/69 (80) 100 09/23/18 17:30 108 48 93/71 (78) 100 09/23/18 17:15 107 24 95/71 (79) 97 09/23/18 17:00 106 24 87/69 (75) 97 09/23/18 17:00 95/71 09/23/18 16:45 105 24 90/73 (79) 97 09/23/18 16:30 90/69 09/23/18 16:30 105 24 88/66 (73) 97 09/23/18 16:15 106 24 85/66 (72) 97 09/23/18 16:00 99.4 108 24 86/70 (75) 97 09/23/18 16:00 74/56 09/23/18 16:00 Nasal Cannula 2.0 09/23/18 16:00 106 09/23/18 15:30 105 24 100/78 (85) 97 09/23/18 15:03 105 22 100 Nasal Cannula 3.0 32 09/23/18 15:00 104 24 105/70 (82) 100 09/23/18 14:55 104 23 100 Nasal Cannula 3.0 32 09/23/18 14:30 102 24 103/69 (80) 100 09/23/18 14:00 101 24 104/70 (81) 100 09/23/18 14:00 104/70 09/23/18 13:30 99.2 102 25 103/68 (80) 100 Intake and Output 09/23/18 09/24/18 19:00 07:00 Intake Total 1479.27 ml 1313.82 ml Output Total 1000 ml 1130 ml Balance 479.27 ml 183.82 ml Intake Free Water 150 ml 30 ml IV Total 879.27 ml 683.82 ml Tube Feeding 450 ml 600 ml Output Urine Total 1000 ml 1130 ml # Bowel Movements 3 Laboratory Tests 09/24/18 04:00: White Blood Count 8.0, Red Blood Count 2.53L, Hemoglobin 8.4L, Hematocrit 26.8L , Mean Corpuscular Volume 106H, Mean Corpuscular Hemoglobin 33.4H, Mean Corpuscular Hemoglobin Concent 31.5L, Red Cell Distribution Width 15.3H, Platelet Count 155, Mean Platelet Volume 10.3H, Neutrophils (%) (Auto) 75.7H, Lymphocytes (%) (Auto) 14.3L, Monocytes (%) (Auto) 8.0, Eosinophils (%) (Auto) 1.2, Basophils (%) (Auto) 0.8, Activated Partial Thromboplast Time 69H, Sodium Level 139, Potassium Level 4.6, Chloride Level 104, Carbon Dioxide Level 27, Anion Gap 8, Blood Urea Nitrogen 30H, Creatinine 1.2, Estimat Glomerular Filtration Rate , Glucose Level 142H, Calcium Level 8.1L Height (Feet): 5 Height (Inches): 8.00 Weight (Pounds): 129 Objective HEAD AND NECK: No JVP. No LAD. No thyromegaly. Bitemporal wasting. Mucous membranes are dry. LUNGS: Bilateral rhonchi. CARDIAC: Regular rate and rhythm. S1 and S2. No murmur. No rub. ABDOMEN: Soft, nontender, and nondistended. EXTREMITIES: No edema. No clubbing. No cyanosis. Tiffanie Huber MD Sep 24, 2018 13:21
--- NOTE | 2018-09-24 15:07 | Pulmonolgy Critical Care Note ---
Critical Care - Asmt/Plan Assessment/Plan: Pulmonary CCM Progress Note HPI Patient is a 77-year-old male recently discharged from the hospital, s/p G-tube for Failure to thrive, has a history of atrial fibrillation/DVT on Eliquis, CHF with EF 20%, CAD with previous NSTEMI, Aortic stenosis, Mitral Regurgitation, Chronic anemia, thromocytopenia, previous admissions for pneumonia, presents from nursing facility for altered mental status and hypotension, decubitus ulcers, recent positive blood culture with staph simulans. At the [facility] was noted to have blood pressure in the mid 70s, was confused, oriented to self only. There is no report of trauma. The patient has no complaints at this time but is oriented to self only cannot provide any significant history. On pressors prn, on heparin gtt PMH: Failure to thrive, has a history of atrial fibrillation/DVT on Eliquis, CHF with EF 20%, CAD with previous NSTEMI, Aortic stenosis, Mitral Regurgitation , Hypertension, Chronic anemia, thromocytopenia, previous admissions for pneumonia, thrombocytopenia presents from nursing facility for altered mental status and hypotension, decubitus ulcers, recent positive blood culture with staph simulans Less SOB, remains on pressors (being weaned), on heparin gtt, persistant pulmonary congestion on CXR Allergies: No documented allergies Allergies: No Known Allergies All Other Systems: limited - Due to altered mental status on presentation Physical Exam Vital Signs Noted On Levophed General: Chronically ill, wasted, no acute distress,RIJ line HEENT: NC/AT. EOMI. PERRLA, pupils equal and reactive bilaterally. No obvious facial trauma. Dry mucous membranes Neck: Supple, trachea midline Chest Wall: No tenderness, no deformity Cardiovascular: Irregularly irregular rhythm, regular rate, HS1, HS2, ESM Resp: Normal work of breathing. CTAB Abdomen: Abdomen is soft, nondistended. Nontender Skin: Multiple ulcers over the back and buttock n MSK: Appears frail and somewhat cachectic. Moving all extremities though diminished strength in all limbs Neuro: Awake, confused, oriented to self only. No focal signs, no seizures EKG: Rate: normal Rhythm: other - Atrial fibrillation ST Segments: no acute changes CXR: Interim placement right jugular central venous catheter, tip of which projects at the level of the high right atrium. Again demonstrated is bilateral interstitial and airspace edema, bilateral pleural effusions, and cardiomegaly. There is no evidence of pneumothorax. CT Head: No acute intracranial findings. Atrophy. Chronic-appearing ischemic changes and encephalomalacia. Labs: Noted Assessment Severe Congestive Heart Failure Bilateral pleural effusions Hypotension Probable Sepsis Possible pneumonia Decubitus ulcers AMS Failure to thrive, has a history of atrial fibrillation/DVT on Eliquis Non Ischemic [employer], CHF with EF 20% CAD with previous NSTEMI - currently elevated Troponin Aortic stenosis, Mitral Regurgitation H/o hypertension Chronic anemia, thromocytopenia Previous admissions for pneumonia Plan IV Antibiotics Levophed Aspiration Precautions Heparin gtt - hold NOACS for now Consider thoracentesis once more stable ASA BiPAP PRN Duonebs PRN/CPT Lasix PRN Monitor Glucose Monitor labs PPX Critical Care - Objective Last 24 Hour Vital Signs Date Time Temp Pulse Resp B/P (MAP) Pulse Ox O2 Delivery O2 Flow Rate FiO2 09/24/18 13:00 84/67 09/24/18 12:59 88/68 09/24/18 12:00 Nasal Cannula 2.0 09/24/18 11:30 112 25 90/67 (75) 99 09/24/18 11:23 112 28 100 Nasal Cannula 2.0 28 09/24/18 11:15 106 29 100 Nasal Cannula 2.0 28 09/24/18 11:00 108 25 85/68 (74) 99 09/24/18 10:30 110 30 96/64 (75) 99 09/24/18 10:00 112 27 89/67 (74) 99 09/24/18 09:30 110 31 92/66 (75) 100 09/24/18 09:16 115 09/24/18 09:00 111 30 90/64 (73) 98 09/24/18 08:45 113 31 88/63 (71) 97 09/24/18 08:30 112 35 84/63 (70) 98 09/24/18 08:15 106 25 82/62 (69) 100 09/24/18 08:00 98.8 104 29 82/64 (70) 100 09/24/18 08:00 109 09/24/18 08:00 Nasal Cannula 2.0 09/24/18 07:53 77/62 09/24/18 07:44 102 27 100 Nasal Cannula 2.0 28 09/24/18 07:35 100 Nasal Cannula 3.0 32 09/24/18 07:35 110 30 100 Nasal Cannula 3.0 32 09/24/18 07:30 108 27 83/66 (72) 99 09/24/18 07:00 101 25 90/72 (78) 100 09/24/18 07:00 90/72 09/24/18 06:30 99 25 78/61 (67) 100 09/24/18 06:00 83/61 09/24/18 06:00 103 33 83/61 (68) 100 09/24/18 05:30 100 22 87/58 (68) 100 09/24/18 05:00 100 19 86/62 (70) 100 09/24/18 05:00 87/58 09/24/18 04:30 106 22 82/60 (67) 100 09/24/18 04:17 87/71 09/24/18 04:00 Nasal Cannula 2.0 09/24/18 04:00 107 09/24/18 04:00 98.9 107 26 87/71 (76) 100 09/24/18 03:39 108 24 100 Nasal Cannula 3.0 32 09/24/18 03:30 101 30 89/67 (74) 100 09/24/18 03:29 106 26 100 Nasal Cannula 3.0 32 09/24/18 03:00 105 23 89/64 (72) 97 09/24/18 02:30 117 29 105/81 (89) 09/24/18 02:00 108 34 86/67 (73) 94 09/24/18 01:30 110 30 89/62 (71) 96 09/24/18 01:00 109 35 88/67 (74) 100 09/24/18 00:30 109 28 94/67 (76) 100 09/24/18 00:14 88/71 09/24/18 00:00 109 09/24/18 00:00 98.5 109 29 88/71 (77) 100 09/24/18 00:00 88/71 09/24/18 00:00 Nasal Cannula 2.0 09/23/18 23:42 110 26 100 Nasal Cannula 3.0 32 09/23/18 23:31 110 24 100 Nasal Cannula 3.0 32 09/23/18 23:30 110 29 95/69 (78) 100 09/23/18 23:00 108 25 98/61 (73) 100 09/23/18 23:00 93/69 09/23/18 22:30 102 24 91/69 (76) 95 09/23/18 22:00 112 25 92/66 (75) 95 09/23/18 22:00 91/68 09/23/18 21:30 108 25 100/70 (80) 97 09/23/18 21:00 100/70 09/23/18 21:00 112 19 92/69 (77) 98 09/23/18 20:30 119 34 103/76 (85) 100 09/23/18 20:00 99.0 112 43 95/68 (77) 100 09/23/18 20:00 Nasal Cannula 2.0 09/23/18 20:00 112 09/23/18 20:00 98/72 09/23/18 20:00 98/72 09/23/18 19:35 112 25 100 Nasal Cannula 3.0 32 09/23/18 19:30 113 38 98/72 (81) 100 09/23/18 19:25 100 Nasal Cannula 3.0 32 09/23/18 19:25 112 24 100 Nasal Cannula 3.0 32 09/23/18 19:00 96/69 09/23/18 19:00 110 32 96/67 (77) 100 09/23/18 18:30 108 48 93/69 (77) 100 09/23/18 18:15 108 48 91/68 (76) 100 09/23/18 18:00 108 48 93/69 (77) 100 09/23/18 18:00 93/68 09/23/18 17:45 105 48 103/69 (80) 100 09/23/18 17:30 108 48 93/71 (78) 100 09/23/18 17:15 107 24 95/71 (79) 97 09/23/18 17:00 106 24 87/69 (75) 97 09/23/18 17:00 95/71 09/23/18 16:45 105 24 90/73 (79) 97 09/23/18 16:30 90/69 09/23/18 16:30 105 24 88/66 (73) 97 09/23/18 16:15 106 24 85/66 (72) 97 09/23/18 16:00 99.4 108 24 86/70 (75) 97 09/23/18 16:00 74/56 09/23/18 16:00 Nasal Cannula 2.0 09/23/18 16:00 106 09/23/18 15:30 105 24 100/78 (85) 97 Accucheck: 162 Critical Care - Subjective ROS Limited/Unobtainable: No FI02: 28 Sputum Amount: None Tube Feeding Amount: 60 I&O: Intake and Output 09/23/18 09/24/18 19:00 07:00 Intake Total 1479.27 ml 1313.82 ml Output Total 1000 ml 1130 ml Balance 479.27 ml 183.82 ml Intake Free Water 150 ml 30 ml IV Total 879.27 ml 683.82 ml Tube Feeding 450 ml 600 ml Output Urine Total 1000 ml 1130 ml # Bowel Movements 3 Robbin Diana MD Sep 24, 2018 15:07
--- NOTE | 2018-09-24 16:17 | Infectious Diseases Prog Note ---
Assessment/Plan Assessment/Plan A; Positive blood culture likely contamination Pulmonary edema, ? pneumonia Sepsis/ SIRS Cardiogenic shock Aortic stenosis Atrial flutter HPN Anemia P: Continue Zosyn X 2 days Poor prognosis will f/u cultures Subjective ROS Limited/Unobtainable: Yes Cardiovascular: Reports: other - in ICU on Dobutamine & Levophed Allergies: Coded Allergies: No Known Allergies (Unverified , 01/07/18) Objective Vital Signs Last 24 Hour Vital Signs Date Time Temp Pulse Resp B/P (MAP) Pulse Ox O2 Delivery O2 Flow Rate FiO2 09/24/18 15:25 111 26 100 Nasal Cannula 2.0 28 09/24/18 15:12 107 25 99 Nasal Cannula 2.0 28 09/24/18 13:00 84/67 09/24/18 12:59 88/68 09/24/18 12:00 Nasal Cannula 2.0 09/24/18 11:30 112 25 90/67 (75) 99 09/24/18 11:23 112 28 100 Nasal Cannula 2.0 28 09/24/18 11:15 106 29 100 Nasal Cannula 2.0 28 09/24/18 11:00 108 25 85/68 (74) 99 09/24/18 10:30 110 30 96/64 (75) 99 09/24/18 10:00 112 27 89/67 (74) 99 09/24/18 09:30 110 31 92/66 (75) 100 09/24/18 09:16 115 09/24/18 09:00 111 30 90/64 (73) 98 09/24/18 08:45 113 31 88/63 (71) 97 09/24/18 08:30 112 35 84/63 (70) 98 09/24/18 08:15 106 25 82/62 (69) 100 09/24/18 08:00 98.8 104 29 82/64 (70) 100 09/24/18 08:00 109 09/24/18 08:00 Nasal Cannula 2.0 09/24/18 07:53 77/62 09/24/18 07:44 102 27 100 Nasal Cannula 2.0 28 09/24/18 07:35 100 Nasal Cannula 3.0 32 09/24/18 07:35 110 30 100 Nasal Cannula 3.0 32 09/24/18 07:30 108 27 83/66 (72) 99 09/24/18 07:00 101 25 90/72 (78) 100 09/24/18 07:00 90/72 09/24/18 06:30 99 25 78/61 (67) 100 09/24/18 06:00 83/61 09/24/18 06:00 103 33 83/61 (68) 100 09/24/18 05:30 100 22 87/58 (68) 100 09/24/18 05:00 100 19 86/62 (70) 100 09/24/18 05:00 87/58 09/24/18 04:30 106 22 82/60 (67) 100 09/24/18 04:17 87/71 09/24/18 04:00 Nasal Cannula 2.0 09/24/18 04:00 107 09/24/18 04:00 98.9 107 26 87/71 (76) 100 09/24/18 03:39 108 24 100 Nasal Cannula 3.0 32 09/24/18 03:30 101 30 89/67 (74) 100 09/24/18 03:29 106 26 100 Nasal Cannula 3.0 32 09/24/18 03:00 105 23 89/64 (72) 97 09/24/18 02:30 117 29 105/81 (89) 09/24/18 02:00 108 34 86/67 (73) 94 09/24/18 01:30 110 30 89/62 (71) 96 09/24/18 01:00 109 35 88/67 (74) 100 09/24/18 00:30 109 28 94/67 (76) 100 09/24/18 00:14 88/71 09/24/18 00:00 109 09/24/18 00:00 98.5 109 29 88/71 (77) 100 09/24/18 00:00 88/71 09/24/18 00:00 Nasal Cannula 2.0 09/23/18 23:42 110 26 100 Nasal Cannula 3.0 32 09/23/18 23:31 110 24 100 Nasal Cannula 3.0 32 09/23/18 23:30 110 29 95/69 (78) 100 09/23/18 23:00 108 25 98/61 (73) 100 09/23/18 23:00 93/69 09/23/18 22:30 102 24 91/69 (76) 95 09/23/18 22:00 112 25 92/66 (75) 95 09/23/18 22:00 91/68 09/23/18 21:30 108 25 100/70 (80) 97 09/23/18 21:00 100/70 09/23/18 21:00 112 19 92/69 (77) 98 09/23/18 20:30 119 34 103/76 (85) 100 09/23/18 20:00 99.0 112 43 95/68 (77) 100 09/23/18 20:00 Nasal Cannula 2.0 09/23/18 20:00 112 09/23/18 20:00 98/72 09/23/18 20:00 98/72 09/23/18 19:35 112 25 100 Nasal Cannula 3.0 32 09/23/18 19:30 113 38 98/72 (81) 100 09/23/18 19:25 100 Nasal Cannula 3.0 32 09/23/18 19:25 112 24 100 Nasal Cannula 3.0 32 09/23/18 19:00 96/69 09/23/18 19:00 110 32 96/ (77) 100 09/23/18 18:30 108 48 93/69 (77) 100 09/23/18 18:15 108 48 91/68 (76) 100 09/23/18 18:00 108 48 93/69 (77) 100 09/23/18 18:00 93/09/23/18 17:45 105 48 103/69 (80) 100 09/23/18 17:30 108 48 93/71 (78) 100 09/23/18 17:15 107 24 95/71 (79) 97 09/23/18 17:00 106 24 87/69 (75) 97 09/23/18 17:00 95/71 09/23/18 16:45 105 24 90/73 (79) 97 09/23/18 16:30 90/69 09/23/18 16:30 105 24 88/66 (73) 97 Height (Feet): 5 Height (Inches): 8.00 Weight (Pounds): 129 General Appearance: no acute distress HEENT: mucous membranes moist Respiratory/Chest: lungs clear Cardiovascular: tachycardia Abdomen: soft, non tender, other - GT feeding Extremities: other - edema Neurologic/Psychiatric: other - Lethargic Laboratory Tests Test 09/24/18 04:00 White Blood Count 8.0 K/UL (4.8-10.8) Red Blood Count 2.53 M/UL (4.70-6.10) L Hemoglobin 8.4 G/DL (14.2-18.0) L Hematocrit 26.8 % (42.0-52.0) L Mean Corpuscular Volume 106 FL (80-99) H Mean Corpuscular Hemoglobin 33.4 PG (27.0-31.0) H Mean Corpuscular Hemoglobin Concent 31.5 G/DL (32.0-36.0) L Red Cell Distribution Width 15.3 % (11.6-14.8) H Platelet Count 155 K/UL (150-450) Mean Platelet Volume 10.3 FL (6.5-10.1) H Neutrophils (%) (Auto) 75.7 % (45.0-75.0) H Lymphocytes (%) (Auto) 14.3 % (20.0-45.0) L Monocytes (%) (Auto) 8.0 % (1.0-10.0) Eosinophils (%) (Auto) 1.2 % (0.0-3.0) Basophils (%) (Auto) 0.8 % (0.0-2.0) Activated Partial Thromboplast Time 69 SEC (23-33) H Sodium Level 139 MMOL/L (136-145) Potassium Level 4.6 MMOL/L (3.5-5.1) Chloride Level 104 MMOL/L (98-107) Carbon Dioxide Level 27 MMOL/L (21-32) Anion Gap 8 mmol/L (5-15) Blood Urea Nitrogen 30 mg/dL (7-18) H Creatinine 1.2 MG/DL (0.55-1.30) Estimat Glomerular Filtration Rate mL/min (>60) Glucose Level 142 MG/DL (74-106) H Calcium Level 8.1 MG/DL (8.5-10.1) L Current Medications Medications (Trade) Dose Ordered Sig/Fritz Route PRN Reason Start Time Stop Time Status Last Admin Dose Admin Acetaminophen (Tylenol) 650 mg Q6H PRN GT Mild Pain/Temp > 100.5 09/19/18 03:45 10/19/18 03:44 09/23/18 11:35 Albuterol/ Ipratropium (Albuterol/ Ipratropium) 3 ml Q4HRT HHN 09/24/18 11:15 09/29/18 11:14 09/24/18 15:11 Aspirin (ASA) 81 mg DAILY GT 09/19/18 09:00 10/19/18 08:59 09/24/18 09:16 Chlorhexidine Gluconate (Nadeen-Hex 2%) 1 applic DAILY@2000 TOPIC 09/19/18 20:00 10/19/18 19:59 09/23/18 19:59 Digoxin (Lanoxin) 0.125 mg DAILY PEG 09/20/18 09:00 10/20/18 08:59 09/24/18 09:16 Dobutamine HCl 250 ml @ 7.022 mls/ hr Q24H IV 09/24/18 12:00 10/19/18 11:59 09/24/18 12:59 Folic Acid (Folate) 1 mg DAILY ORAL 09/23/18 16:35 10/23/18 16:34 09/24/18 09:14 Furosemide (Lasix) 20 mg BID IV 09/24/18 18:00 10/21/18 17:59 Heparin Sodium/ Dextrose 500 ml @ 17.58 mls/ hr ADJUST PER PROTOCOL IV 09/21/18 07:15 10/21/18 05:39 09/23/18 11:37 Loperamide HCl (Imodium) 2 mg Q6H PRN NG Diarrhea 09/23/18 09:00 10/23/18 08:59 09/24/18 09:14 Norepinephrine Bitartrate 16 mg/ Dextrose 516 ml @ 0 mls/hr Q24H IV 09/24/18 01:00 10/24/18 00:59 09/24/18 04:17 Ondansetron HCl (Zofran) 4 mg Q4H PRN IVP Nausea & Vomiting 09/19/18 04:15 10/19/18 04:14 Pantoprazole (Protonix) 40 mg DAILY IVP 09/19/18 09:00 10/19/18 08:59 09/24/18 09:14 Piperacillin Sod/ Tazobactam Sod 4.5 gm/Sodium Chloride 110 ml @ 27.5 mls/hr Q8HR IVPB 09/19/18 06:00 09/26/18 05:59 09/24/18 14:40 Potassium Chloride (K-Dur) 40 meq DAILY ORAL 09/22/18 09:00 10/22/18 08:59 09/24/18 09:15 Alexis Rivera MD Sep 24, 2018 16:17
[2018-09-24] MEDS ORDERED: NS 275ml ONE (16:58)
[2018-09-24] MEDS ORDERED: Tubing IV Secondary IV ONE (16:58)
--- NOTE | 2018-09-24 17:57 | Hematology/Onc Progress Note ---
Assessment/Plan Assessment/Plan Assessment and Recs: # Acute right leg DVT hx, before was on eliquis, currently is on heparin gtt also with mobile clot --> cards aware from prior admission --> currently on heparin gtt --> ONCE is on coumadin/lovenox, inr goal is 2-3 --> monitor for bleeding # Anemia of chronic disease due to underlying chronic medical issues, multifactorial. --> Anemia w/u has been reviewed. Ferritin at 450. --> hgb goal >7. Transfuse prn. --> No evidence of hemolysis noted --> hgb trend 12-->10.7-->10.1-->9.3->8.4 --> FOLIC ACID STARTED (with macrocytosis) and mcv >105 and low folate # Thrombocytopenia - most likely related to PNA infection. 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 CXR has been reviewed. --> pulm eval prn --> on multiple pressors in the icu per cards --> on abx per id # Myocardial infarction. --> Cardiac cath [address] Conde, neg --> on hep for nstemi # Atrial flutter with rapid ventricular response (reason for this admission). --> per cards, potential ablation o/p --> potential icd placement --> on heparin gtt, to continue # Psych disorder -- as per psych recs The timing of this note does not necessarily reflect the time of the patient was seen. Greatly appreciate consultation! Subjective Constitutional: Denies: no symptoms, chills, fever, malaise, weakness, other HEENT: Denies: no symptoms, eye pain, blurred vision, tearing, double vision, ear pain, ear discharge, nose pain, nose congestion, throat pain, throat swelling, mouth pain, mouth swelling, other Respiratory: Denies: no symptoms, cough, shortness of breath, SOB with excertion, SOB at rest, sputum, wheezing, other Gastrointestinal/Abdominal: Denies: no symptoms, abdomen distended, abdominal pain, black stools, tarry stools, blood in stool, constipated, diarrhea, difficulty swallowing, nausea, poor appetite, poor fluid intake, rectal bleeding , vomiting, other Genitourinary: Denies: no symptoms, burning, discharge, frequency, flank pain, hematuria, incontinence, pain, urgency, other Neurologic/Psychiatric: Denies: no symptoms, anxiety, depressed, emotional problems, headache, numbness, paresthesia, pre-existing deficit, seizure, tingling, tremors, weakness, other Endocrine: Denies: no symptoms, excessive sweating, flushing, intolerance to cold, intolerance to heat, increased hunger, increased thirst, increased urine, unexplained weight gain, unexplained weight loss, other Allergies: Coded Allergies: No Known Allergies (Unverified , 01/07/18) Subjective Subjective 09/19: was discharged yesterday, now comes back in for hypotension, on dig, and heparin gtt, cards seen 09/21: no events, no fevers or chills, no bleeding, on abx, off pressors, is on heparin gtt 09/22: coming off dopamine, vanc stopped per id, still on zosyn, labs reviewed, by beside and lynne rn 09/23: on dobutamine and levo, on abx, seen with rn, labs reviewed in icu 09/24: by bedside, remains confused, lynne rn, on pressors and abx Objective Objective Current Medications Medications (Trade) Dose Ordered Sig/Fritz Route PRN Reason Start Time Stop Time Status Last Admin Dose Admin Acetaminophen (Tylenol) 650 mg Q6H PRN GT Mild Pain/Temp > 100.5 09/19/18 03:45 10/19/18 03:44 09/23/18 11:35 Albuterol/ Ipratropium (Albuterol/ Ipratropium) 3 ml Q4HRT HHN 09/24/18 11:15 09/29/18 11:14 09/24/18 15:11 Aspirin (ASA) 81 mg DAILY GT 09/19/18 09:00 10/19/18 08:59 09/24/18 09:16 Chlorhexidine Gluconate (Nadeen-Hex 2%) 1 applic DAILY@2000 TOPIC 09/19/18 20:00 10/19/18 19:59 09/23/18 19:59 Digoxin (Lanoxin) 0.125 mg DAILY PEG 09/20/18 09:00 10/20/18 08:59 09/24/18 09:16 Dobutamine HCl 250 ml @ 7.022 mls/ hr Q24H IV 09/24/18 12:00 10/19/18 11:59 09/24/18 12:59 Folic Acid (Folate) 1 mg DAILY ORAL 09/23/18 16:35 10/23/18 16:34 09/24/18 09:14 Furosemide (Lasix) 20 mg BID IV 09/24/18 18:00 10/21/18 17:59 Heparin Sodium/ Dextrose 500 ml @ 17.58 mls/ hr ADJUST PER PROTOCOL IV 09/21/18 07:15 10/21/18 05:39 09/24/18 17:14 Loperamide HCl (Imodium) 2 mg Q6H PRN NG Diarrhea 09/23/18 09:00 10/23/18 08:59 09/24/18 09:14 Norepinephrine Bitartrate 16 mg/ Dextrose 516 ml @ 0 mls/hr Q24H IV 09/24/18 01:00 10/24/18 00:59 09/24/18 04:17 Ondansetron HCl (Zofran) 4 mg Q4H PRN IVP Nausea & Vomiting 09/19/18 04:15 10/19/18 04:14 Pantoprazole (Protonix) 40 mg DAILY IVP 09/19/18 09:00 10/19/18 08:59 09/24/18 09:14 Piperacillin Sod/ Tazobactam Sod 4.5 gm/Sodium Chloride 110 ml @ 27.5 mls/hr Q8HR IVPB 09/19/18 06:00 09/26/18 05:59 09/24/18 14:40 Potassium Chloride (K-Dur) 40 meq DAILY ORAL 09/22/18 09:00 10/22/18 08:59 09/24/18 09:15 Last 24 Hour Vital Signs Date Time Temp Pulse Resp B/P (MAP) Pulse Ox O2 Delivery O2 Flow Rate FiO2 09/24/18 15:25 111 26 100 Nasal Cannula 2.0 28 09/24/18 15:12 107 25 99 Nasal Cannula 2.0 28 09/24/18 13:00 84/67 09/24/18 12:59 88/68 09/24/18 12:00 Nasal Cannula 2.0 09/24/18 11:30 112 25 90/67 (75) 99 09/24/18 11:23 112 28 100 Nasal Cannula 2.0 28 09/24/18 11:15 106 29 100 Nasal Cannula 2.0 28 09/24/18 11:00 108 25 85/68 (74) 99 09/24/18 10:30 110 30 96/64 (75) 99 09/24/18 10:00 112 27 89/67 (74) 99 09/24/18 09:30 110 31 92/66 (75) 100 09/24/18 09:16 115 09/24/18 09:00 111 30 90/64 (73) 98 09/24/18 08:45 113 31 88/63 (71) 97 09/24/18 08:30 112 35 84/63 (70) 98 09/24/18 08:15 106 25 82/62 (69) 100 09/24/18 08:00 98.8 104 29 82/64 (70) 100 09/24/18 08:00 109 09/24/18 08:00 Nasal Cannula 2.0 09/24/18 07:53 77/62 09/24/18 07:44 102 27 100 Nasal Cannula 2.0 28 09/24/18 07:35 100 Nasal Cannula 3.0 32 09/24/18 07:35 110 30 100 Nasal Cannula 3.0 32 09/24/18 07:30 108 27 83/66 (72) 99 09/24/18 07:00 101 25 90/72 (78) 100 09/24/18 07:00 90/72 09/24/18 06:30 99 25 78/61 (67) 100 09/24/18 06:00 83/61 09/24/18 06:00 103 33 83/61 (68) 100 09/24/18 05:30 100 22 87/58 (68) 100 09/24/18 05:00 100 19 86/62 (70) 100 09/24/18 05:00 87/58 09/24/18 04:30 106 22 82/60 (67) 100 09/24/18 04:17 87/71 09/24/18 04:00 Nasal Cannula 2.0 09/24/18 04:00 107 09/24/18 04:00 98.9 107 26 87/71 (76) 100 09/24/18 03:39 108 24 100 Nasal Cannula 3.0 32 09/24/18 03:30 101 30 89/67 (74) 100 09/24/18 03:29 106 26 100 Nasal Cannula 3.0 32 09/24/18 03:00 105 23 89/64 (72) 97 09/24/18 02:30 117 29 105/81 (89) 09/24/18 02:00 108 34 86/67 (73) 94 09/24/18 01:30 110 30 89/62 (71) 96 09/24/18 01:00 109 35 88/67 (74) 100 09/24/18 00:30 109 28 94/67 (76) 100 09/24/18 00:14 88/71 09/24/18 00:00 109 09/24/18 00:00 98.5 109 29 88/71 (77) 100 09/24/18 00:00 88/71 09/24/18 00:00 Nasal Cannula 2.0 09/23/18 23:42 110 26 100 Nasal Cannula 3.0 32 09/23/18 23:31 110 24 100 Nasal Cannula 3.0 32 09/23/18 23:30 110 29 95/69 (78) 100 09/23/18 23:00 108 25 98/61 (73) 100 09/23/18 23:00 93/69 09/23/18 22:30 102 24 91/69 (76) 95 09/23/18 22:00 112 25 92/66 (75) 95 09/23/18 22:00 91/68 09/23/18 21:30 108 25 100/70 (80) 97 09/23/18 21:00 100/70 09/23/18 21:00 112 19 92/69 (77) 98 8/6/19 20:30 119 34 103/76 (85) 100 09/23/18 20:00 99.0 112 43 95/68 (77) 100 09/23/18 20:00 Nasal Cannula 2.0 09/23/18 20:00 112 09/23/18 20:00 98/72 09/23/18 20:00 98/72 09/23/18 19:35 112 25 100 Nasal Cannula 3.0 32 09/23/18 19:30 113 38 98/72 (81) 100 09/23/18 19:25 100 Nasal Cannula 3.0 32 09/23/18 19:25 112 24 100 Nasal Cannula 3.0 32 09/23/18 19:00 96/69 09/23/18 19:00 110 32 96/67 (77) 100 09/23/18 18:30 108 48 93/69 (77) 100 09/23/18 18:15 108 48 91/68 (76) 100 09/23/18 18:00 108 48 93/69 (77) 100 09/23/18 18:00 93/68 09/23/18 17:45 105 48 103/69 (80) 100 09/23/18 17:30 108 48 93/71 (78) 100 09/23/18 17:15 107 24 95/71 (79) 97 09/23/18 17:00 106 24 87/69 (75) 97 09/23/18 17:00 95/71 09/23/18 16:45 105 24 90/73 (79) 97 09/23/18 16:30 90/69 09/23/18 16:30 105 24 88/66 (73) 97 09/23/18 16:15 106 24 85/66 (72) 97 09/23/18 16:00 99.4 108 24 86/70 (75) 97 09/23/18 16:00 74/56 09/23/18 16:00 Nasal Cannula 2.0 09/23/18 16:00 106 09/23/18 15:30 105 24 100/78 (85) 97 09/23/18 15:03 105 22 100 Nasal Cannula 3.0 32 09/23/18 15:00 104 24 105/70 (82) 100 09/23/18 14:55 104 23 100 Nasal Cannula 3.0 32 09/23/18 14:30 102 24 103/69 (80) 100 09/23/18 14:00 101 24 104/70 (81) 100 09/23/18 14:00 104/70 09/23/18 13:30 99.2 102 25 103/68 (80) 100 09/23/18 13:00 102 24 79/63 (68) 100 09/23/18 13:00 74/53 09/23/18 12:30 94 29 84/64 (71) 100 09/23/18 12:05 99.2 09/23/18 12:00 Nasal Cannula 2.0 09/23/18 12:00 108 28 92/73 (79) 100 09/23/18 12:00 108 09/23/18 12:00 92/73 09/23/18 11:33 109 23 100 Nasal Cannula 3.0 32 09/23/18 11:30 109 30 98/74 (82) 100 09/23/18 11:24 111 28 100 Nasal Cannula 3.0 32 09/23/18 11:00 108 28 95/75 (82) 98 09/23/18 10:00 103 24 104/77 (86) 98 09/23/18 09:00 98.9 103 24 108/88 (95) 98 09/23/18 08:56 103 09/23/18 08:30 103 24 95/70 (78) 98 09/23/18 08:00 105 09/23/18 08:00 104 23 96/71 (79) 99 09/23/18 08:00 Nasal Cannula 2.0 09/23/18 07:30 102 25 93/70 (78) 100 09/23/18 07:07 Nasal Cannula 3.0 32 09/23/18 07:07 99 Nasal Cannula 3.0 32 09/23/18 07:07 Nasal Cannula 3.0 32 09/23/18 07:00 99 26 93/70 (78) 99 09/23/18 06:30 104 27 94/69 (77) 100 09/23/18 06:00 103 29 96/70 (79) 100 09/23/18 06:00 97/71 09/23/18 05:30 103 26 95/68 (77) 100 09/23/18 05:00 103 25 88/71 (77) 100 09/23/18 05:00 95/69 09/23/18 04:56 101/75 09/23/18 04:30 105 26 95/70 (78) 97 09/23/18 04:00 Nasal Cannula 2.0 09/23/18 04:00 111 09/23/18 04:00 98.6 120 33 104/86 (92) 97 09/23/18 03:30 106 29 92/74 (80) 97 09/23/18 03:22 110 27 99 Nasal Cannula 4.0 36 09/23/18 03:10 102 30 97 Nasal Cannula 4.0 36 09/23/18 03:00 112 31 93/73 (80) 97 09/23/18 02:34 90/71 09/23/18 02:30 108 30 91/72 (78) 97 09/23/18 02:00 106 29 92/71 (78) 97 09/23/18 01:30 109 30 89/74 (79) 97 09/23/18 01:00 108 28 89/70 (76) 99 09/23/18 00:30 112 32 93/69 (77) 98 09/23/18 00:00 113 09/23/18 00:00 Nasal Cannula 2.0 09/23/18 00:00 98.0 114 32 96/67 (77) 99 09/22/18 23:30 117 33 91/69 (76) 99 09/22/18 23:00 124 35 98/72 (81) 98 09/22/18 22:30 130 38 95/75 (82) 97 09/22/18 22:21 Nasal Cannula 09/22/18 22:20 137 33 96 Nasal Cannula 4.0 36 09/22/18 22:00 139 35 106/91 (96) 97 09/22/18 21:30 143 30 120/106 (111) 98 09/22/18 21:00 126 31 106/81 (89) 97 09/22/18 20:45 119 29 101/74 (83) 97 09/22/18 20:30 107 43 96/71 (79) 98 09/22/18 20:23 95/72 09/22/18 20:15 108 46 95/72 (80) 97 09/22/18 20:00 Nasal Cannula 2.0 09/22/18 20:00 98.3 121 28 99/77 (84) 97 09/22/18 20:00 114 09/22/18 19:45 110 47 91/71 (78) 96 09/22/18 19:44 105 24 97 Nasal Cannula 3.0 32 09/22/18 19:34 97 Nasal Cannula 3.0 32 09/22/18 19:32 114 24 96 Nasal Cannula 3.0 32 09/22/18 19:30 114 39 98/77 (84) 100 09/22/18 19:15 108 36 95/73 (80) 97 09/22/18 19:00 111 31 94/71 (79) 97 09/22/18 19:00 95/73 09/22/18 19:00 95/73 09/22/18 18:30 106 28 93/67 (76) 98 09/22/18 18:00 90/59 09/22/18 18:00 90/59 09/22/18 18:00 112 27 89/70 (76) 97 Intake and Output 09/23/18 09/24/18 18:59 06:59 Intake Total 1495.127 ml 1281.60 ml Output Total 950 ml 1180 ml Balance 545.127 ml 101.60 ml Intake Free Water 150 ml 30 ml IV Total 845.127 ml 701.60 ml Tube Feeding 500 ml 550 ml Output Urine Total 950 ml 1180 ml # Bowel Movements 3 Labs Test 09/22/18 04:00 09/22/18 07:34 09/22/18 21:44 09/23/18 04:15 White Blood Count 9.3 K/UL (4.8-10.8) 9.8 K/UL (4.8-10.8) Red Blood Count 3.02 M/UL (4.70-6.10) 2.80 M/UL (4.70-6.10) Hemoglobin 10.1 G/DL (14.2-18.0) 9.3 G/DL (14.2-18.0) Hematocrit 32.0 % (42.0-52.0) 29.7 % (42.0-52.0) Mean Corpuscular Volume 106 FL (80-99) 106 FL (80-99) Mean Corpuscular Hemoglobin 33.6 PG (27.0-31.0) 33.3 PG (27.0-31.0) Mean Corpuscular Hemoglobin Concent 31.7 G/DL (32.0-36.0) 31.4 G/DL (32.0-36.0) Red Cell Distribution Width 15.1 % (11.6-14.8) 15.5 % (11.6-14.8) Platelet Count 146 K/UL (150-450) 143 K/UL (150-450) Mean Platelet Volume 9.1 FL (6.5-10.1) 9.5 FL (6.5-10.1) Neutrophils (%) (Auto) 78.2 % (45.0-75.0) 77.4 % (45.0-75.0) Lymphocytes (%) (Auto) 10.4 % (20.0-45.0) 12.3 % (20.0-45.0) Monocytes (%) (Auto) 8.2 % (1.0-10.0) 8.1 % (1.0-10.0) Eosinophils (%) (Auto) 2.4 % (0.0-3.0) 0.3 % (0.0-3.0) Basophils (%) (Auto) 0.8 % (0.0-2.0) 1.9 % (0.0-2.0) Activated Partial Thromboplast Time 70 SEC (23-33) 70 SEC (23-33) Sodium Level 138 MMOL/L (136-145) 134 MMOL/L (136-145) Potassium Level 4.1 MMOL/L (3.5-5.1) 4.3 MMOL/L (3.5-5.1) Chloride Level 106 MMOL/L (98-107) 102 MMOL/L (98-107) Carbon Dioxide Level 26 MMOL/L (21-32) 25 MMOL/L (21-32) Anion Gap 6 mmol/L (5-15) 7 mmol/L (5-15) Blood Urea Nitrogen 18 mg/dL (7-18) 24 mg/dL (7-18) Creatinine 0.9 MG/DL (0.55-1.30) 1.2 MG/DL (0.55-1.30) Estimat Glomerular Filtration Rate mL/min (>60) mL/min (>60) Glucose Level 138 MG/DL (74-106) 143 MG/DL (74-106) Calcium Level 7.9 MG/DL (8.5-10.1) 8.2 MG/DL (8.5-10.1) Phosphorus Level 2.3 MG/DL (2.5-4.9) 2.0 MG/DL (2.5-4.9) Magnesium Level 1.7 MG/DL (1.8-2.4) 1.9 MG/DL (1.8-2.4) Total Bilirubin 1.1 MG/DL (0.2-1.0) 1.2 MG/DL (0.2-1.0) Direct Bilirubin 0.6 MG/DL (0.0-0.3) 0.6 MG/DL (0.0-0.3) Aspartate Amino Transf (AST/SGOT) 17 U/L (15-37) 22 U/L (15-37) Alanine Aminotransferase (ALT/SGPT) < 6 U/L (12-78) 7 U/L (12-78) Alkaline Phosphatase 63 U/L (46-116) 78 U/L (46-116) Total Protein 5.6 G/DL (6.4-8.2) 6.4 G/DL (6.4-8.2) Albumin 1.9 G/DL (3.4-5.0) 1.9 G/DL (3.4-5.0) Vancomycin Level Trough 15.3 ug/mL (5.0-12.0) Arterial Blood pH 7.508 (7.350-7.450) Arterial Blood Partial Pressure CO2 30.8 mmHg (35.0-45.0) Arterial Blood Partial Pressure O2 59.5 mmHg (75.0-100.0) Arterial Blood HCO3 23.9 mmol/L (22.0-26.0) Arterial Blood Oxygen Saturation 92.5 % (95-100) Arterial Blood Base Excess 1.4 (-2-2) Asad Test N/a Globulin 4.5 g/dL Albumin/Globulin Ratio 0.4 (1.0-2.7) Test 09/24/18 04:00 White Blood Count 8.0 K/UL (4.8-10.8) Red Blood Count 2.53 M/UL (4.70-6.10) Hemoglobin 8.4 G/DL (14.2-18.0) Hematocrit 26.8 % (42.0-52.0) Mean Corpuscular Volume 106 FL (80-99) Mean Corpuscular Hemoglobin 33.4 PG (27.0-31.0) Mean Corpuscular Hemoglobin Concent 31.5 G/DL (32.0-36.0) Red Cell Distribution Width 15.3 % (11.6-14.8) Platelet Count 155 K/UL (150-450) Mean Platelet Volume 10.3 FL (6.5-10.1) Neutrophils (%) (Auto) 75.7 % (45.0-75.0) Lymphocytes (%) (Auto) 14.3 % (20.0-45.0) Monocytes (%) (Auto) 8.0 % (1.0-10.0) Eosinophils (%) (Auto) 1.2 % (0.0-3.0) Basophils (%) (Auto) 0.8 % (0.0-2.0) Activated Partial Thromboplast Time 69 SEC (23-33) Sodium Level 139 MMOL/L (136-145) Potassium Level 4.6 MMOL/L (3.5-5.1) Chloride Level 104 MMOL/L (98-107) Carbon Dioxide Level 27 MMOL/L (21-32) Anion Gap 8 mmol/L (5-15) Blood Urea Nitrogen 30 mg/dL (7-18) Creatinine 1.2 MG/DL (0.55-1.30) Estimat Glomerular Filtration Rate mL/min (>60) Glucose Level 142 MG/DL (74-106) Calcium Level 8.1 MG/DL (8.5-10.1) Height (Feet): 5 Height (Inches): 8.00 Weight (Pounds): 129 Objective HEENT: + Face Mask LUNGS: Coarse rhonchi b/l CV: Irregular. S1 and S2 with no gallop or murmur. ABD: Soft, + PEG in place EXT: No pitting edema. gu: [email or web address]++ Bruce Loya MD Sep 24, 2018 17:57
--- NOTE | 2018-09-24 18:22 | Cardiology Report ---
APPROVED REPORT EKG Measurement Heart [id number] IL 128P [id number] Sinus tachycardia with frequent, and consecutive premature ventricular complexes Left axis deviation Nonspecific T wave abnormality Prolonged QT Abnormal ECG
[2018-09-24] MEDS: Dyna-Hex 2% Top Sol 2oz TOPIC SCH (19:55)
--- NOTE | 2018-09-24 21:42 | General Progress Note ---
Assessment/Plan Problem List: (1) Atrial fibrillation ICD Codes: I48.91 - Unspecified atrial fibrillation SNOMED: 32504646 (2) Anemia ICD Codes: D64.9 - Anemia, unspecified SNOMED: 586333441 (3) Severe protein-calorie malnutrition ICD Codes: E43 - Unspecified severe protein-calorie malnutrition SNOMED: 570290851, 687328109, 476934681 (4) Encounter for PEG (percutaneous endoscopic gastrostomy) ICD Codes: Z43.1 - Encounter for attention to gastrostomy SNOMED: 270442269, 104026204 (5) Altered level of consciousness ICD Codes: R40.4 - Transient alteration of awareness SNOMED: 6524842 (6) Hypotension ICD Codes: I95.9 - Hypotension, unspecified SNOMED: 46146694 Status: unchanged Assessment/Plan: chf malnutrition lethargic labile bp not improving a fib w rvr peg s/p VT very poor prognosis i spoke w re dnr however she wants everything done for time being getting worse on drips Subjective ROS Limited/Unobtainable: Yes Allergies: Coded Allergies: No Known Allergies (Unverified , 01/07/18) Objective Last 24 Hour Vital Signs Date Time Temp Pulse Resp B/P (MAP) Pulse Ox O2 Delivery O2 Flow Rate FiO2 09/24/18 19:55 09/24/18 19:30 110 29 (74) 100 09/24/18 19:29 114 25 100 Nasal Cannula 2.0 28 09/24/18 19:28 113 23 100 Nasal Cannula 2.0 28 09/24/18 19:22 111 23 100 Nasal Cannula 2.0 28 09/24/18 19:21 100 Nasal Cannula 2.0 28 09/24/18 19:00 09/24/18 19:00 112 30 97/72 (80) 100 09/24/18 18:30 110 31 89/71 (77) 100 09/24/18 18:00 109 25 90/69 (76) 99 09/24/18 18:00 90/09/24/18 17:30 105 26 93/74 (80) 98 09/24/18 17:00 111 27 89/68 (75) 100 09/24/18 17:00 95/73 09/24/18 16:30 111 26 93/71 (78) 99 8/7/19 16:00 115 09/24/18 16:00 98.3 112 28 95/71 (79) 100 09/24/18 16:00 95/71 09/24/18 16:00 Nasal Cannula 2.0 09/24/18 15:30 115 24 91/69 (76) 100 09/24/18 15:25 111 26 100 Nasal Cannula 2.0 28 09/24/18 15:12 107 25 99 Nasal Cannula 2.0 28 09/24/18 15:00 93/67 09/24/18 15:00 108 25 92/73 (79) 100 09/24/18 14:30 93/69 09/24/18 14:30 114 25 99/71 (80) 95 09/24/18 14:00 92/70 09/24/18 14:00 110 29 88/69 (75) 96 09/24/18 13:45 88/69 09/24/18 13:45 110 30 91/67 (75) 97 09/24/18 13:30 91/67 09/24/18 13:30 107 28 84/66 (72) 97 09/24/18 13:15 109 31 90/65 (73) 100 09/24/18 13:15 84/66 09/24/18 13:00 110 31 84/67 (73) 100 09/24/18 13:00 84/67 09/24/18 12:59 88/68 09/24/18 12:30 109 25 86/63 (71) 99 09/24/18 12:00 Nasal Cannula 2.0 09/24/18 12:00 98.4 110 26 85/66 (72) 99 09/24/18 12:00 90/68 09/24/18 12:00 111 09/24/18 11:30 112 25 90/67 (75) 99 09/24/18 11:23 112 28 100 Nasal Cannula 2.0 28 09/24/18 11:15 106 29 100 Nasal Cannula 2.0 28 09/24/18 11:00 108 25 85/68 (74) 99 09/24/18 11:00 85/68 09/24/18 10:30 110 30 96/64 (75) 99 09/24/18 10:00 92/64 09/24/18 10:00 112 27 89/67 (74) 99 09/24/18 09:30 92/67 09/24/18 09:30 110 31 92/66 (75) 100 09/24/18 09:16 115 09/24/18 09:00 111 30 90/64 (73) 98 09/24/18 09:00 86/65 09/24/18 08:45 113 31 88/63 (71) 97 09/24/18 08:45 90/64 09/24/18 08:30 88/63 09/24/18 08:30 112 35 84/63 (70) 98 09/24/18 08:15 84/63 09/24/18 08:15 106 25 82/62 (69) 100 09/24/18 08:00 98.8 104 29 82/64 (70) 100 09/24/18 08:00 109 09/24/18 08:00 Nasal Cannula 2.0 09/24/18 07:53 77/62 09/24/18 07:44 102 27 100 Nasal Cannula 2.0 28 09/24/18 07:35 100 Nasal Cannula 3.0 32 09/24/18 07:35 110 30 100 Nasal Cannula 3.0 32 09/24/18 07:30 108 27 83/66 (72) 99 09/24/18 07:00 101 25 90/72 (78) 100 09/24/18 07:00 90/72 09/24/18 06:30 99 25 78/61 (67) 100 09/24/18 06:00 83/61 09/24/18 06:00 103 33 83/61 (68) 100 09/24/18 05:30 100 22 87/58 (68) 100 09/24/18 05:00 100 19 86/62 (70) 100 09/24/18 05:00 87/58 09/24/18 04:30 106 22 82/60 (67) 100 09/24/18 04:17 87/71 09/24/18 04:00 Nasal Cannula 2.0 09/24/18 04:00 107 09/24/18 04:00 98.9 107 26 87/71 (76) 100 09/24/18 03:39 108 24 100 Nasal Cannula 3.0 32 09/24/18 03:30 101 30 89/67 (74) 100 09/24/18 03:29 106 26 100 Nasal Cannula 3.0 32 09/24/18 03:00 105 23 89/64 (72) 97 09/24/18 02:30 117 29 105/81 (89) 09/24/18 02:00 108 34 86/67 (73) 94 09/24/18 01:30 110 30 89/62 (71) 96 09/24/18 01:00 109 35 88/67 (74) 100 09/24/18 00:30 109 28 94/67 (76) 100 09/24/18 00:14 88/71 09/24/18 00:00 109 09/24/18 00:00 98.5 109 29 88/71 (77) 100 09/24/18 00:00 88/71 09/24/18 00:00 Nasal Cannula 2.0 09/23/18 23:42 110 26 100 Nasal Cannula 3.0 32 09/23/18 23:31 110 24 100 Nasal Cannula 3.0 32 09/23/18 23:30 110 29 95/69 (78) 100 09/23/18 23:00 108 25 98/61 (73) 100 09/23/18 23:00 93/69 09/23/18 22:30 102 24 91/69 (76) 95 09/23/18 22:00 112 25 92/66 (75) 95 09/23/18 22:00 91/68 Intake and Output 09/23/18 09/24/18 18:59 06:59 Intake Total 1495.127 ml 1281.60 ml Output Total 950 ml 1180 ml Balance 545.127 ml 101.60 ml Intake Free Water 150 ml 30 ml IV Total 845.127 ml 701.60 ml Tube Feeding 500 ml 550 ml Output Urine Total 950 ml 1180 ml # Bowel Movements 3 Laboratory Tests 09/24/18 04:00: White Blood Count 8.0, Red Blood Count 2.53L, Hemoglobin 8.4L, Hematocrit 26.8L , Mean Corpuscular Volume 106H, Mean Corpuscular Hemoglobin 33.4H, Mean Corpuscular Hemoglobin Concent 31.5L, Red Cell Distribution Width 15.3H, Platelet Count 155, Mean Platelet Volume 10.3H, Neutrophils (%) (Auto) 75.7H, Lymphocytes (%) (Auto) 14.3L, Monocytes (%) (Auto) 8.0, Eosinophils (%) (Auto) 1.2, Basophils (%) (Auto) 0.8, Activated Partial Thromboplast Time 69H, Sodium Level 139, Potassium Level 4.6, Chloride Level 104, Carbon Dioxide Level 27, Anion Gap 8, Blood Urea Nitrogen 30H, Creatinine 1.2, Estimat Glomerular Filtration Rate , Glucose Level 142H, Calcium Level 8.1L Height (Feet): 5 Height (Inches): 8.00 Weight (Pounds): 129 General Appearance: lethargic, confused Respiratory/Chest: rhonchi - bilaterally Inocencia Watt MD Sep 24, 2018 21:42
[2018-09-25] VITALS (56 sets, daily range): BP systolic 40–125; BP diastolic 11–86
[2018-09-25] MEDS: Norepinephrine Bitartrate 16 MG in D5W 500ml 500 ML IV SCH (00:30)
[2018-09-25] MEDS: Albuterol/Ipratropium 3ml neb HHN SCH ×4 (02:04→14:59)
[2018-09-25] MEDS: Piperacillin/Tazobactam 4.5 GM in NS 110 ML IVPB SCH ×2 (05:00→06:14)
[2018-09-25] MEDS ORDERED: Heparin 5000 units/ml inj IV ONE (05:45)
[2018-09-25] MEDS ORDERED: Heparin 25,000u/D5W 500ml (VTE/AF) IV SCH ×2 (05:45→13:45)
--- NOTE | 2018-09-25 07:52 | Infectious Diseases Prog Note ---
Assessment/Plan Assessment/Plan A; Positive blood culture likely contamination Pulmonary edema, ? pneumonia Sepsis/ SIRS Cardiogenic shock Aortic stenosis Atrial flutter HPN Anemia P: Continue Zosyn X 1 days Poor prognosis will CXR Subjective ROS Limited/Unobtainable: Yes Respiratory: Reports: shortness of breath, other - started on Oxygen Cardiovascular: Reports: other - on Dobutamin& heparin Allergies: Coded Allergies: No Known Allergies (Unverified , 01/07/18) Objective Vital Signs Last 24 Hour Vital Signs Date Time Temp Pulse Resp B/P (MAP) Pulse Ox O2 Delivery O2 Flow Rate FiO2 09/25/18 07:25 119 33 100 Nasal Cannula 2.0 28 09/25/18 07:14 97 Nasal Cannula 2.0 28 09/25/18 07:14 118 23 97 Nasal Cannula 2.0 28 09/25/18 07:00 88/68 09/25/18 07:00 109 32 88/68 (75) 98 09/25/18 06:30 120 33 92/65 (74) 98 09/25/18 06:00 92/85 09/25/18 06:00 120 34 96/67 (77) 99 09/25/18 05:30 118 35 92/71 (78) 98 09/25/18 05:00 120 25 91/71 (78) 98 09/25/18 05:00 99/69 09/25/18 04:30 123 31 104/86 (92) 97 09/25/18 04:00 98.1 121 32 104/81 (89) 97 09/25/18 04:00 Nasal Cannula 2.0 09/25/18 04:00 104/66 09/25/18 04:00 124 09/25/18 03:30 117 32 99/81 (87) 99 09/25/18 03:00 89/50 09/25/18 03:00 116 37 106/80 (89) 100 09/25/18 02:30 126 33 109/80 (90) 100 09/25/18 02:12 116 28 100 Nasal Cannula 2.0 28 09/25/18 02:05 110 27 99 Nasal Cannula 2.0 28 09/25/18 02:00 116 31 94/74 (81) 98 09/25/18 02:00 101/62 09/25/18 01:30 106 15 95/76 (82) 100 09/25/18 01:00 97/69 09/25/18 01:00 99/70 09/25/18 01:00 116 25 94/78 (83) 99 09/25/18 00:30 111 25 95/75 (82) 98 09/25/18 00:30 100/78 09/25/18 00:00 98.9 114 30 95/76 (82) 97 09/25/18 00:00 Nasal Cannula 2.0 09/25/18 00:00 115 09/24/18 23:30 118 28 100/78 (85) 98 09/24/18 23:10 115 27 100 Nasal Cannula 2.0 28 09/24/18 23:00 127 28 114/87 (96) 98 09/24/18 23:00 114/87 09/24/18 22:57 117 25 100 Nasal Cannula 2.0 28 09/24/18 22:30 115 22 92/70 (77) 94 09/24/18 22:00 113 24 90/64 (73) 94 09/24/18 22:00 93/77 09/24/18 21:30 109 29 89/69 (76) 97 09/24/18 21:00 95/60 09/24/18 21:00 114 34 99/71 (80) 99 09/24/18 20:30 112 31 95/72 (80) 100 09/24/18 20:00 99.1 111 27 94/70 (78) 99 09/24/18 20:00 89/71 09/24/18 20:00 Nasal Cannula 2.0 09/24/18 20:00 109 09/24/18 19:55 89/67 09/24/18 19:30 110 29 89/67 (74) 100 09/24/18 19:29 114 25 100 Nasal Cannula 2.0 28 09/24/18 19:28 113 23 100 Nasal Cannula 2.0 28 09/24/18 19:22 111 23 100 Nasal Cannula 2.0 28 09/24/18 19:21 100 Nasal Cannula 2.0 28 09/24/18 19:00 89/67 09/24/18 19:00 112 30 97/72 (80) 100 09/24/18 18:30 110 31 89/71 (77) 100 09/24/18 18:00 109 25 90/69 (76) 99 09/24/18 18:00 90/69 09/24/18 17:30 105 26 93/74 (80) 98 09/24/18 17:00 111 27 89/68 (75) 100 09/24/18 17:00 95/73 09/24/18 16:30 111 26 93/71 (78) 99 09/24/18 16:00 115 09/24/18 16:00 98.3 112 28 95/71 (79) 100 09/24/18 16:00 95/71 09/24/18 16:00 Nasal Cannula 2.0 09/24/18 15:30 115 24 91/69 (76) 100 09/24/18 15:25 111 26 100 Nasal Cannula 2.0 28 09/24/18 15:12 107 25 99 Nasal Cannula 2.0 28 09/24/18 15:00 93/67 09/24/18 15:00 108 25 92/73 (79) 100 09/24/18 14:30 93/69 09/24/18 14:30 114 25 99/71 (80) 95 09/24/18 14:00 92/70 09/24/18 14:00 110 29 88/69 (75) 96 09/24/18 13:45 88/69 09/24/18 13:45 110 30 91/67 (75) 97 09/24/18 13:30 91/67 09/24/18 13:30 107 28 84/66 (72) 97 09/24/18 13:15 109 31 90/65 (73) 100 09/24/18 13:15 84/66 09/24/18 13:00 110 31 84/67 (73) 100 09/24/18 13:00 84/67 09/24/18 12:59 88/68 09/24/18 12:30 109 25 86/63 (71) 99 09/24/18 12:00 Nasal Cannula 2.0 09/24/18 12:00 98.4 110 26 85/66 (72) 99 09/24/18 12:00 90/68 09/24/18 12:00 111 09/24/18 11:30 112 25 90/67 (75) 99 09/24/18 11:23 112 28 100 Nasal Cannula 2.0 28 09/24/18 11:15 106 29 100 Nasal Cannula 2.0 28 09/24/18 11:00 108 25 85/68 (74) 99 09/24/18 11:00 85/68 09/24/18 10:30 110 30 96/64 (75) 99 09/24/18 10:00 92/64 09/24/18 10:00 112 27 89/67 (74) 99 09/24/18 09:30 92/67 09/24/18 09:30 110 31 92/66 (75) 100 09/24/18 09:16 115 09/24/18 09:00 111 30 90/64 (73) 98 09/24/18 09:00 86/65 09/24/18 08:45 113 31 88/63 (71) 97 09/24/18 08:45 90/64 09/24/18 08:30 88/63 09/24/18 08:30 112 35 84/63 (70) 98 09/24/18 08:15 84/63 09/24/18 08:15 106 25 82/62 (69) 100 09/24/18 08:00 98.8 104 29 82/64 (70) 100 09/24/18 08:00 109 09/24/18 08:00 Nasal Cannula 2.0 09/24/18 07:53 77/62 Height (Feet): 5 Height (Inches): 8.00 Weight (Pounds): 131 HEENT: other - Oxygen by venturi mask Respiratory/Chest: decreased breath sounds, other - tachypenic Cardiovascular: tachycardia, other - RIJ line Abdomen: soft, non tender, other - GT feeding Extremities: other - edema Neurologic/Psychiatric: unresponsiveness Laboratory Tests Test 09/25/18 02:55 Activated Partial Thromboplast Time 58 SEC (23-33) H Current Medications Medications (Trade) Dose Ordered Sig/Fritz Route PRN Reason Start Time Stop Time Status Last Admin Dose Admin Acetaminophen (Tylenol) 650 mg Q6H PRN GT Mild Pain/Temp > 100.5 09/19/18 03:45 10/19/18 03:44 09/23/18 11:35 Albuterol/ Ipratropium (Albuterol/ Ipratropium) 3 ml Q4HRT HHN 09/24/18 11:15 09/29/18 11:14 09/25/18 07:15 Aspirin (ASA) 81 mg DAILY GT 09/19/18 09:00 10/19/18 08:59 09/24/18 09:16 Chlorhexidine Gluconate (Nadeen-Hex 2%) 1 applic DAILY@2000 TOPIC 09/19/18 20:00 10/19/18 19:59 09/24/18 19:55 Digoxin (Lanoxin) 0.125 mg DAILY PEG 09/20/18 09:00 10/20/18 08:59 09/24/18 09:16 Dobutamine HCl 250 ml @ 7.022 mls/ hr Q24H IV 09/24/18 12:00 10/19/18 11:59 09/24/18 19:55 Folic Acid (Folate) 1 mg DAILY ORAL 09/23/18 16:35 10/23/18 16:34 09/24/18 09:14 Furosemide (Lasix) 20 mg BID IV 09/24/18 18:00 10/21/18 17:59 09/24/18 18:22 Heparin Sodium/ Dextrose 500 ml @ 19.924 mls/ hr ADJUST PER PROTOCOL IV 09/25/18 05:45 10/25/18 05:44 09/25/18 06:12 Loperamide HCl (Imodium) 2 mg Q6H PRN NG Diarrhea 09/23/18 09:00 10/23/18 08:59 09/24/18 09:14 Norepinephrine Bitartrate 16 mg/ Dextrose 516 ml @ 0 mls/hr Q24H IV 09/24/18 01:00 10/24/18 00:59 09/25/18 00:30 Ondansetron HCl (Zofran) 4 mg Q4H PRN IVP Nausea & Vomiting 09/19/18 04:15 10/19/18 04:14 Pantoprazole (Protonix) 40 mg DAILY IVP 09/19/18 09:00 10/19/18 08:59 09/24/18 09:14 Piperacillin Sod/ Tazobactam Sod 4.5 gm/Sodium Chloride 110 ml @ 27.5 mls/hr Q8HR IVPB 09/19/18 06:00 09/26/18 05:59 09/25/18 06:14 Potassium Chloride (K-Dur) 40 meq DAILY ORAL 09/22/18 09:00 10/22/18 08:59 09/24/18 09:15 Alexis Rivera MD Sep 25, 2018 07:52
[2018-09-25] MEDS: Pantoprazole Inj IVP SCH (08:50)
[2018-09-25] MEDS: Acetaminophen 650mg/20.3ml GT PRN (08:51)
[2018-09-25] MEDS: Digoxin 0.125mg tab PEG SCH (08:51)
[2018-09-25] MEDS: Aspirin Baby 81mg GT SCH (08:52)
--- NOTE | 2018-09-25 10:53 | Nephrology Progress Note ---
Assessment/Plan Assessment 1. Prerenal azotemia and dehydration. 2. Hypocalcemia. 3. Hypomagnesemia. 4. Possible failure to thrive, . 5. Possible pneumonia. Plan check stat lab monitoring renal function avoid NSAID replace electrolyte Subjective Subjective continue to be in icu seems to be more confused today he is jenny mask Objective Objective Last 24 Hour Vital Signs Date Time Temp Pulse Resp B/P (MAP) Pulse Ox O2 Delivery O2 Flow Rate FiO2 09/25/18 10:49 119 30 100 Venturi Mask 4.0 30 09/25/18 10:30 110 32 97 Venturi Mask 4.0 30 09/25/18 10:30 80/67 09/25/18 10:30 117 62 77/63 (68) 100 09/25/18 10:15 118 55 83/62 (69) 100 09/25/18 10:00 83/62 09/25/18 10:00 119 63 88/60 (69) 100 09/25/18 09:45 119 58 87/66 (73) 100 09/25/18 09:30 110 61 88/69 (75) 100 09/25/18 09:15 118 53 88/65 (73) 100 09/25/18 09:00 84/65 09/25/18 09:00 119 39 86/65 (72) 99 09/25/18 08:51 120 09/25/18 08:45 119 36 82/66 (71) 100 09/25/18 08:30 119 39 89/64 (72) 100 09/25/18 08:15 120 34 94/70 (78) 100 09/25/18 08:00 Venturi Mask 4.0 09/25/18 08:00 99.0 120 34 88/66 (73) 100 09/25/18 08:00 81/68 09/25/18 07:45 117 34 81/68 (72) 99 09/25/18 07:30 116 34 85/63 (70) 91 09/25/18 07:25 119 33 100 Nasal Cannula 2.0 28 09/25/18 07:15 115 33 98/80 (86) 100 09/25/18 07:14 97 Nasal Cannula 2.0 28 09/25/18 07:14 118 23 97 Nasal Cannula 2.0 28 09/25/18 07:00 88/68 09/25/18 07:00 109 32 88/68 (75) 98 09/25/18 06:30 120 33 92/65 (74) 98 09/25/18 06:00 92/85 09/25/18 06:00 120 34 96/67 (77) 99 09/25/18 05:30 118 35 92/71 (78) 98 09/25/18 05:00 120 25 91/71 (78) 98 09/25/18 05:00 99/69 09/25/18 04:30 123 31 104/86 (92) 97 09/25/18 04:00 98.1 121 32 104/81 (89) 97 09/25/18 04:00 Nasal Cannula 2.0 09/25/18 04:00 104/66 09/25/18 04:00 124 09/25/18 03:30 117 32 99/81 (87) 99 09/25/18 03:00 89/50 09/25/18 03:00 116 37 106/80 (89) 100 09/25/18 02:30 126 33 109/80 (90) 100 09/25/18 02:12 116 28 100 Nasal Cannula 2.0 28 09/25/18 02:05 110 27 99 Nasal Cannula 2.0 28 09/25/18 02:00 116 31 94/74 (81) 98 09/25/18 02:00 101/62 09/25/18 01:30 106 15 95/76 (82) 100 09/25/18 01:00 97/69 09/25/18 01:00 99/70 09/25/18 01:00 116 25 94/78 (83) 99 09/25/18 00:30 111 25 95/75 (82) 98 09/25/18 00:30 100/78 09/25/18 00:00 98.9 114 30 95/76 (82) 97 09/25/18 00:00 Nasal Cannula 2.0 09/25/18 00:00 115 09/24/18 23:30 118 28 100/78 (85) 98 09/24/18 23:10 115 27 100 Nasal Cannula 2.0 28 09/24/18 23:00 127 28 114/87 (96) 98 09/24/18 23:00 114/87 09/24/18 22:57 117 25 100 Nasal Cannula 2.0 28 09/24/18 22:30 115 22 92/70 (77) 94 09/24/18 22:00 113 24 90/64 (73) 94 09/24/18 22:00 93/77 09/24/18 21:30 109 29 89/69 (76) 97 09/24/18 21:00 95/60 09/24/18 21:00 114 34 99/71 (80) 99 09/24/18 20:30 112 31 95/72 (80) 100 09/24/18 20:00 99.1 111 27 94/70 (78) 99 09/24/18 20:00 89/71 09/24/18 20:00 Nasal Cannula 2.0 09/24/18 20:00 109 09/24/18 19:55 89/67 09/24/18 19:30 110 29 89/67 (74) 100 09/24/18 19:29 114 25 100 Nasal Cannula 2.0 28 09/24/18 19:28 113 23 100 Nasal Cannula 2.0 28 09/24/18 19:22 111 23 100 Nasal Cannula 2.0 28 09/24/18 19:21 100 Nasal Cannula 2.0 28 09/24/18 19:00 89/67 09/24/18 19:00 112 30 97/72 (80) 100 09/24/18 18:30 110 31 89/71 (77) 100 09/24/18 18:00 109 25 90/69 (76) 99 09/24/18 18:00 90/69 09/24/18 17:30 105 26 93/74 (80) 98 09/24/18 17:00 111 27 89/68 (75) 100 09/24/18 17:00 95/73 09/24/18 16:30 111 26 93/71 (78) 99 09/24/18 16:00 115 09/24/18 16:00 98.3 112 28 95/71 (79) 100 09/24/18 16:00 95/71 09/24/18 16:00 Nasal Cannula 2.0 09/24/18 15:30 115 24 91/69 (76) 100 09/24/18 15:25 111 26 100 Nasal Cannula 2.0 28 09/24/18 15:12 107 25 99 Nasal Cannula 2.0 28 09/24/18 15:00 93/67 8/7/19 15:00 108 25 92/73 (79) 100 09/24/18 14:30 93/69 09/24/18 14:30 114 25 99/71 (80) 95 09/24/18 14:00 92/70 09/24/18 14:00 110 29 88/69 (75) 96 09/24/18 13:45 88/69 09/24/18 13:45 110 30 91/67 (75) 97 09/24/18 13:30 91/67 09/24/18 13:30 107 28 84/66 (72) 97 09/24/18 13:15 109 31 90/65 (73) 100 09/24/18 13:15 84/66 09/24/18 13:00 110 31 84/67 (73) 100 09/24/18 13:00 84/67 09/24/18 12:59 88/68 09/24/18 12:30 109 25 86/63 (71) 99 09/24/18 12:00 Nasal Cannula 2.0 09/24/18 12:00 98.4 110 26 85/66 (72) 99 09/24/18 12:00 90/68 09/24/18 12:00 111 09/24/18 11:30 112 25 90/67 (75) 99 09/24/18 11:23 112 28 100 Nasal Cannula 2.0 28 09/24/18 11:15 106 29 100 Nasal Cannula 2.0 28 09/24/18 11:00 108 25 85/68 (74) 99 09/24/18 11:00 85/68 Intake and Output 09/24/18 09/25/18 19:00 07:00 Intake Total 1523.1395 ml 1405.400 ml Output Total 670 ml 710 ml Balance 853.1395 ml 695.400 ml Intake Free Water 150 ml 50 ml IV Total 703.1395 ml 635.400 ml Tube Feeding 670 ml 720 ml Output Urine Total 670 ml 710 ml # Bowel Movements 1 Laboratory Tests 09/25/18 02:55: Activated Partial Thromboplast Time 58H 09/25/18 10:10: Arterial Blood pH 7.448, Arterial Blood Partial Pressure CO2 34.4L, Arterial Blood Partial Pressure O2 82.1, Arterial Blood HCO3 23.3, Arterial Blood Oxygen Saturation 95.4, Arterial Blood Base Excess -0.4, Asad Test Positive Height (Feet): 5 Height (Inches): 8.00 Weight (Pounds): 131 Objective HEAD AND NECK: No JVP. No LAD. No thyromegaly. Bitemporal wasting. Mucous membranes are dry. LUNGS: Bilateral rhonchi. CARDIAC: Regular rate and rhythm. S1 and S2. No murmur. No rub. ABDOMEN: Soft, nontender, and nondistended. EXTREMITIES: No edema. No clubbing. No cyanosis. Tiffanie Huber MD Sep 25, 2018 10:53
--- NOTE | 2018-09-25 11:14 | Cardiac Electrophysiology PN ---
Assessment/Plan Assessment/Plan 1. Atrial flutter with rapid ventricular response 140s. HR 100s. Off Coreg for low BP and is on Dobutamine. Had atrial flutter in December 2017 and previous admission also. Too sick for flutter ablation. Dig level 0.5. On Dig o.125 daily 2. Cardiogenic and septic shock EF 15%. Cardiac catheterization by me in December 2017 no CAD. Off all CHF meds (Cozaar 25 mg daily, Aldactone 12.5 mg daily, and Coreg 3.125 mg b.i.d) On Dobutamine to 2 mc/min. On Levophed 6 mcg as well 3. 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 15 beats of nonsustained VT. Due to severe non ischemic CMP. Consider ICD if longevity felt > 1 year and after infection resolves 5. History of hypertension. 6. Severe MAIK 0.3 7. Dysphagia, S/P PEG 8. History of DVT on heparin drip 9. Bacteremia due to Sepsis/ SIRS. On iv Abx and Levophed per Dr Nicole MARADIAGA RN and Subjective Subjective In ICU on Levophed 6 mc. Off Dobutamine 2 mcg and heparin drip. Objective Last 24 Hour Vital Signs Date Time Temp Pulse Resp B/P (MAP) Pulse Ox O2 Delivery O2 Flow Rate FiO2 09/25/18 10:49 119 30 100 Venturi Mask 4.0 30 09/25/18 10:30 110 32 97 Venturi Mask 4.0 30 09/25/18 10:30 80/67 09/25/18 10:30 117 62 77/63 (68) 100 09/25/18 10:15 118 55 83/62 (69) 100 09/25/18 10:00 83/62 09/25/18 10:00 119 63 88/60 (69) 100 09/25/18 09:45 119 58 87/66 (73) 100 09/25/18 09:30 110 61 88/69 (75) 100 09/25/18 09:15 118 53 88/65 (73) 100 09/25/18 09:00 84/65 09/25/18 09:00 119 39 86/65 (72) 99 09/25/18 08:51 120 09/25/18 08:45 119 36 82/66 (71) 100 09/25/18 08:30 119 39 89/64 (72) 100 09/25/18 08:15 120 34 94/70 (78) 100 09/25/18 08:00 Venturi Mask 4.0 09/25/18 08:00 99.0 120 34 88/66 (73) 100 09/25/18 08:00 119 09/25/18 08:00 81/68 09/25/18 07:45 117 34 81/68 (72) 99 09/25/18 07:30 116 34 85/63 (70) 91 09/25/18 07:25 119 33 100 Nasal Cannula 2.0 28 09/25/18 07:15 115 33 98/80 (86) 100 09/25/18 07:14 97 Nasal Cannula 2.0 28 09/25/18 07:14 118 23 97 Nasal Cannula 2.0 28 09/25/18 07:00 88/68 09/25/18 07:00 109 32 88/68 (75) 98 09/25/18 06:30 120 33 92/65 (74) 98 09/25/18 06:00 92/85 09/25/18 06:00 120 34 96/67 (77) 99 09/25/18 05:30 118 35 92/71 (78) 98 09/25/18 05:00 120 25 91/71 (78) 98 09/25/18 05:00 99/69 09/25/18 04:30 123 31 104/86 (92) 97 09/25/18 04:00 98.1 121 32 104/81 (89) 97 09/25/18 04:00 Nasal Cannula 2.0 09/25/18 04:00 104/66 09/25/18 04:00 124 09/25/18 03:30 117 32 99/81 (87) 99 09/25/18 03:00 89/50 09/25/18 03:00 116 37 106/80 (89) 100 09/25/18 02:30 126 33 109/80 (90) 100 09/25/18 02:12 116 28 100 Nasal Cannula 2.0 28 09/25/18 02:05 110 27 99 Nasal Cannula 2.0 28 09/25/18 02:00 116 31 94/74 (81) 98 09/25/18 02:00 101/62 09/25/18 01:30 106 15 95/76 (82) 100 09/25/18 01:00 97/69 09/25/18 01:00 99/70 09/25/18 01:00 116 25 94/78 (83) 99 09/25/18 00:30 111 25 95/75 (82) 98 09/25/18 00:30 100/78 09/25/18 00:00 98.9 114 30 95/76 (82) 97 09/25/18 00:00 Nasal Cannula 2.0 09/25/18 00:00 115 09/24/18 23:30 118 28 100/78 (85) 98 09/24/18 23:10 115 27 100 Nasal Cannula 2.0 28 09/24/18 23:00 127 28 114/87 (96) 98 09/24/18 23:00 114/87 09/24/18 22:57 117 25 100 Nasal Cannula 2.0 28 09/24/18 22:30 115 22 92/70 (77) 94 09/24/18 22:00 113 24 90/64 (73) 94 09/24/18 22:00 93/77 09/24/18 21:30 109 29 89/69 (76) 97 09/24/18 21:00 95/60 09/24/18 21:00 114 34 99/71 (80) 99 09/24/18 20:30 112 31 95/72 (80) 100 09/24/18 20:00 99.1 111 27 94/70 (78) 99 09/24/18 20:00 89/71 09/24/18 20:00 Nasal Cannula 2.0 09/24/18 20:00 109 09/24/18 19:55 89/67 09/24/18 19:30 110 29 89/67 (74) 100 09/24/18 19:29 114 25 100 Nasal Cannula 2.0 28 09/24/18 19:28 113 23 100 Nasal Cannula 2.0 28 09/24/18 19:22 111 23 100 Nasal Cannula 2.0 28 09/24/18 19:21 100 Nasal Cannula 2.0 28 09/24/18 19:00 89/67 09/24/18 19:00 112 30 97/72 (80) 100 09/24/18 18:30 110 31 89/71 (77) 100 09/24/18 18:00 109 25 90/69 (76) 99 09/24/18 18:00 90/69 09/24/18 17:30 105 26 93/74 (80) 98 09/24/18 17:00 111 27 89/68 (75) 100 09/24/18 17:00 95/73 09/24/18 16:30 111 26 93/71 (78) 99 09/24/18 16:00 115 09/24/18 16:00 98.3 112 28 95/71 (79) 100 09/24/18 16:00 95/71 09/24/18 16:00 Nasal Cannula 2.0 09/24/18 15:30 115 24 91/69 (76) 100 09/24/18 15:25 111 26 100 Nasal Cannula 2.0 28 09/24/18 15:12 107 25 99 Nasal Cannula 2.0 28 09/24/18 15:00 93/67 09/24/18 15:00 108 25 92/73 (79) 100 09/24/18 14:30 93/69 09/24/18 14:30 114 25 99/71 (80) 95 09/24/18 14:00 92/70 09/24/18 14:00 110 29 88/69 (75) 96 09/24/18 13:45 88/69 09/24/18 13:45 110 30 91/67 (75) 97 09/24/18 13:30 91/67 09/24/18 13:30 107 28 84/66 (72) 97 09/24/18 13:15 109 31 90/65 (73) 100 09/24/18 13:15 84/66 09/24/18 13:00 110 31 84/67 (73) 100 09/24/18 13:00 84/67 09/24/18 12:59 88/68 09/24/18 12:30 109 25 86/63 (71) 99 09/24/18 12:00 Nasal Cannula 2.0 09/24/18 12:00 98.4 110 26 85/66 (72) 99 09/24/18 12:00 90/68 09/24/18 12:00 111 09/24/18 11:30 112 25 90/67 (75) 99 09/24/18 11:23 112 28 100 Nasal Cannula 2.0 28 09/24/18 11:15 106 29 100 Nasal Cannula 2.0 28 Intake and Output 09/24/18 09/25/18 19:00 07:00 Intake Total 1523.1395 ml 1405.400 ml Output Total 670 ml 710 ml Balance 853.1395 ml 695.400 ml Intake Free Water 150 ml 50 ml IV Total 703.1395 ml 635.400 ml Tube Feeding 670 ml 720 ml Output Urine Total 670 ml 710 ml # Bowel Movements 1 Laboratory Tests Test 09/25/18 02:55 09/25/18 10:10 Activated Partial Thromboplast Time 58 SEC (23-33) H Arterial Blood pH 7.448 (7.350-7.450) Arterial Blood Partial Pressure CO2 34.4 mmHg (35.0-45.0) L Arterial Blood Partial Pressure O2 82.1 mmHg (75.0-100.0) Arterial Blood HCO3 23.3 mmol/L (22.0-26.0) Arterial Blood Oxygen Saturation 95.4 % (95-100) Arterial Blood Base Excess -0.4 (-2-2) Asad Test Positive Microbiology Date/Time Source Procedure Growth Status 09/24/18 20:25 Stool Clostridium difficile Toxin Assay - Final Complete Objective HEAD AND NECK: Face Mask with positive JVD. LUNGS: Coarse rhonchi. CARDIOVASCULAR: Irregular. S1 and S2 with no gallop or murmur. ABDOMEN: Soft.PEG in place EXTREMITIES: No pitting edema. Antonio Conde MD Sep 25, 2018 11:14
--- NOTE | 2018-09-25 11:17 | Diagnostic Imaging Report ---
Indication: Dyspnea Comparison: 09/23/2018 A single view chest radiograph was obtained. Findings: Current study is limited by underexposure. There is a evidence of bilateral pleural effusions and CHF again demonstrated. Cardiomegaly is noted. IMPRESSION: Limited evaluation. CHF bilateral pleural effusions
--- NOTE | 2018-09-25 11:54 | General Progress Note ---
Assessment/Plan Status: unchanged Assessment/Plan: 1. Hypertension. 2. History of non-ST elevation myocardial infarction. 3. Severe cardiomyopathy with EF of 20%. 4. Atrial flutter. 5. Right leg DVT. 6. Dysphagia with G-tube placement in last admission. GTF changed to vital AF given diarrhea>>> better abx per ID fu labs rectal tube>> consider dc imodium prn fu stool for C.diff Subjective ROS Limited/Unobtainable: Yes Allergies: Coded Allergies: No Known Allergies (Unverified , 01/07/18) Objective Last 24 Hour Vital Signs Date Time Temp Pulse Resp B/P (MAP) Pulse Ox O2 Delivery O2 Flow Rate FiO2 09/25/18 10:49 119 30 100 Venturi Mask 4.0 30 09/25/18 10:30 110 32 97 Venturi Mask 4.0 30 09/25/18 10:30 80/67 09/25/18 10:30 117 62 77/63 (68) 100 09/25/18 10:15 118 55 83/62 (69) 100 09/25/18 10:00 83/62 09/25/18 10:00 119 63 88/60 (69) 100 09/25/18 09:45 119 58 87/66 (73) 100 09/25/18 09:30 110 61 88/69 (75) 100 09/25/18 09:15 118 53 88/65 (73) 100 09/25/18 09:00 84/65 09/25/18 09:00 119 39 86/65 (72) 99 09/25/18 08:51 120 09/25/18 08:45 119 36 82/66 (71) 100 09/25/18 08:30 119 39 89/64 (72) 100 09/25/18 08:15 120 34 94/70 (78) 100 09/25/18 08:00 Venturi Mask 4.0 09/25/18 08:00 99.0 120 34 88/66 (73) 100 09/25/18 08:00 119 09/25/18 08:00 81/68 09/25/18 07:45 117 34 81/68 (72) 99 09/25/18 07:30 116 34 85/63 (70) 91 09/25/18 07:25 119 33 100 Nasal Cannula 2.0 28 09/25/18 07:15 115 33 98/80 (86) 100 09/25/18 07:14 97 Nasal Cannula 2.0 28 09/25/18 07:14 118 23 97 Nasal Cannula 2.0 28 09/25/18 07:00 88/68 09/25/18 07:00 109 32 88/68 (75) 98 09/25/18 06:30 120 33 92/65 (74) 98 09/25/18 06:00 92/85 09/25/18 06:00 120 34 96/67 (77) 99 09/25/18 05:30 118 35 92/71 (78) 98 09/25/18 05:00 120 25 91/71 (78) 98 09/25/18 05:00 99/69 09/25/18 04:30 123 31 104/86 (92) 97 09/25/18 04:00 98.1 121 32 104/81 (89) 97 09/25/18 04:00 Nasal Cannula 2.0 09/25/18 04:00 104/66 09/25/18 04:00 124 09/25/18 03:30 117 32 99/81 (87) 99 09/25/18 03:00 89/50 09/25/18 03:00 116 37 106/80 (89) 100 09/25/18 02:30 126 33 109/80 (90) 100 09/25/18 02:12 116 28 100 Nasal Cannula 2.0 28 09/25/18 02:05 110 27 99 Nasal Cannula 2.0 28 09/25/18 02:00 116 31 94/74 (81) 98 09/25/18 02:00 101/62 09/25/18 01:30 106 15 95/76 (82) 100 09/25/18 01:00 97/69 09/25/18 01:00 99/70 09/25/18 01:00 116 25 94/78 (83) 99 09/25/18 00:30 111 25 95/75 (82) 98 09/25/18 00:30 100/78 09/25/18 00:00 98.9 114 30 95/76 (82) 97 09/25/18 00:00 Nasal Cannula 2.0 09/25/18 00:00 115 09/24/18 23:30 118 28 100/78 (85) 98 09/24/18 23:10 115 27 100 Nasal Cannula 2.0 28 09/24/18 23:00 127 28 114/87 (96) 98 09/24/18 23:00 114/87 09/24/18 22:57 117 25 100 Nasal Cannula 2.0 28 09/24/18 22:30 115 22 92/70 (77) 94 09/24/18 22:00 113 24 90/64 (73) 94 09/24/18 22:00 93/77 09/24/18 21:30 109 29 89/69 (76) 97 09/24/18 21:00 95/60 09/24/18 21:00 114 34 99/71 (80) 99 09/24/18 20:30 112 31 95/72 (80) 100 09/24/18 20:00 99.1 111 27 94/70 (78) 99 09/24/18 20:00 89/71 09/24/18 20:00 Nasal Cannula 2.0 09/24/18 20:00 109 09/24/18 19:55 89/67 09/24/18 19:30 110 29 89/67 (74) 100 09/24/18 19:29 114 25 100 Nasal Cannula 2.0 28 09/24/18 19:28 113 23 100 Nasal Cannula 2.0 28 09/24/18 19:22 111 23 100 Nasal Cannula 2.0 28 09/24/18 19:21 100 Nasal Cannula 2.0 28 09/24/18 19:00 89/67 09/24/18 19:00 112 30 97/72 (80) 100 09/24/18 18:30 110 31 89/71 (77) 100 09/24/18 18:00 109 25 90/69 (76) 99 09/24/18 18:00 90/69 09/24/18 17:30 105 26 93/74 (80) 98 09/24/18 17:00 111 27 89/68 (75) 100 09/24/18 17:00 95/73 09/24/18 16:30 111 26 93/71 (78) 99 09/24/18 16:00 115 09/24/18 16:00 98.3 112 28 95/71 (79) 100 09/24/18 16:00 95/71 09/24/18 16:00 Nasal Cannula 2.0 09/24/18 15:30 115 24 91/69 (76) 100 09/24/18 15:25 111 26 100 Nasal Cannula 2.0 28 09/24/18 15:12 107 25 99 Nasal Cannula 2.0 28 09/24/18 15:00 93/67 09/24/18 15:00 108 25 92/73 (79) 100 09/24/18 14:30 93/69 09/24/18 14:30 114 25 99/71 (80) 95 09/24/18 14:00 92/70 09/24/18 14:00 110 29 88/69 (75) 96 09/24/18 13:45 88/69 09/24/18 13:45 110 30 91/67 (75) 97 09/24/18 13:30 91/67 09/24/18 13:30 107 28 84/66 (72) 97 09/24/18 13:15 109 31 90/65 (73) 100 09/24/18 13:15 84/66 09/24/18 13:00 110 31 84/67 (73) 100 09/24/18 13:00 84/67 09/24/18 12:59 88/68 09/24/18 12:30 109 25 86/63 (71) 99 09/24/18 12:00 Nasal Cannula 2.0 09/24/18 12:00 98.4 110 26 85/66 (72) 99 09/24/18 12:00 90/68 09/24/18 12:00 111 Intake and Output 09/24/18 09/25/18 19:00 07:00 Intake Total 1523.1395 ml 1405.400 ml Output Total 670 ml 710 ml Balance 853.1395 ml 695.400 ml Intake Free Water 150 ml 50 ml IV Total 703.1395 ml 635.400 ml Tube Feeding 670 ml 720 ml Output Urine Total 670 ml 710 ml # Bowel Movements 1 Laboratory Tests 09/25/18 02:55: Activated Partial Thromboplast Time 58H 09/25/18 10:10: Arterial Blood pH 7.448, Arterial Blood Partial Pressure CO2 34.4L, Arterial Blood Partial Pressure O2 82.1, Arterial Blood HCO3 23.3, Arterial Blood Oxygen Saturation 95.4, Arterial Blood Base Excess -0.4, Asad Test Positive Height (Feet): 5 Height (Inches): 8.00 Weight (Pounds): 131 General Appearance: no apparent distress EENT: normal ENT inspection Neck: supple Cardiovascular: normal peripheral pulses Respiratory/Chest: decreased breath sounds Abdomen: normal bowel sounds, non tender, soft Extremities: non-tender Phoenix Boo MD Sep 25, 2018 11:54
[2018-09-25 12:42] LABS: BASOPHILS % (AUTO) 0.6 % (0.0-2.0); HEMATOCRIT 29.3 % (42.0-52.0); LYMPHOCYTES % (AUTO) 9.4 % (20.0-45.0); MEAN CORPUSCULAR VOLUME 108 FL (80-99); PLATELET COUNT 204 K/UL (150-450); RED CELL DISTRIBUTION WIDTH 15.4 % (11.6-14.8); WHITE BLOOD COUNT 8.4 K/UL (4.8-10.8)
[2018-09-25 13:07] LABS: ALANINE AMINOTRANSFERASE 170 U/L (12-78); ALBUMIN 2.2 G/DL (3.4-5.0); ALBUMIN/GLOBULIN RATIO 0.4 (1.0-2.7); ALKALINE PHOSPHATASE 109 U/L (46-116); ANION GAP 10 mmol/L (5-15); ASPARTATE AMINO TRANSFERASE 425 U/L (15-37); BILIRUBIN,TOTAL 1.2 MG/DL (0.2-1.0); BLOOD UREA NITROGEN 40 mg/dL (7-18); CALCIUM 8.7 MG/DL (8.5-10.1); CARBON DIOXIDE 24 MMOL/L (21-32); CHLORIDE 103 MMOL/L (98-107); CREATININE 1.6 MG/DL (0.55-1.30); POTASSIUM 5.7 MMOL/L (3.5-5.1); SODIUM 137 MMOL/L (136-145)
[2018-09-25 13:09] LABS: BILIRUBIN,DIRECT 0.7 MG/DL (0.0-0.3)
[2018-09-25] MEDS ORDERED: Sodium Bicarbonate 50ml Carp ONE (16:34)
[2018-09-25] MEDS ORDERED: Atropine Inj 1mg/10ml Syr ONE (16:34)
[2018-09-25] MEDS ORDERED: Insulin Human Regular 100units/ml 3ml ONE (16:34)
[2018-09-25] MEDS ORDERED: Calcium Chloride 10% 10ml carpuject IVP ONE (16:34)
--- NOTE | 2018-09-25 16:45 | Emergency Room Report ---
History of Present Illness General Chief Complaint: Altered Level of Consciousness Source: Medical Record Present Illness Allergies: Coded Allergies: No Known Allergies (Unverified , 01/07/18) Nursing Documentation-[facility] Past Medical History Deferred: Pt Cognitively Impaired Past Medical History: No History, Except For Hx Cardiac Problems: Yes Hx Hypertension: Yes Hx COPD: Yes Hx Cancer: No Hx Gastrointestinal Problems: No Hx Neurological Problems: Yes Hx Dementia: Yes Hx Weakness: Yes Physical Exam Vital Signs Date Time Temp Pulse Resp B/P (MAP) Pulse Ox O2 Delivery O2 Flow Rate FiO2 09/21/18 07:00 105 26 98/79 (85) 100 09/21/18 08:00 Nasal Cannula 2.0 09/21/18 08:00 98.8 09/21/18 10:47 24 Procedures Critical Care Time Critical Care Time 30 minutes for bedside evaluation critical condition Not including any procedural time CPR/Code Blue CPR/Code Blue Narrative I was called upstairs to a CODE BLUE upon arrival patient has CPR ongoing pulseless and copious amounts of vomitus at bedside Epinephrine is initiated And patient required airway intubation using a 4.0 MAC blade patient was intubated on first attempt with direct visualization of the vocal cords there was copious amounts of vomit at the oral airway requiring suctioning however CPR ongoing patient also appears to have a potassium of 5.7 on previous blood work therefore calcium chloride and sodium bicarbonate will also given Patient had multiple rounds of epinephrine CPR ongoing Bedside ultrasound also reveals PEA with some minimal activity without any pulse Patient had several episodes of PEA along with asystole No other shockable rhythms After significant attempt patient is not showing any signs of change or response to medication and all attempts are appearing futile Family has presented at bedside They are understanding of the situation And the patient was pronounced at 16:35 Pupils fixed and dilated Pulseless Asystole Intubation Intubation : Consent: Emergent Intubation Method: orotracheal Tube Size (cm): 8.0 Breath Sounds after Intubation: equal Intubation Complications: no complications Post Intubation Xray: No Attempts: One Patient Tolerated: Well Complications: None Medical Decision Making Diagnostic Impression: Primary Impression: Cardiopulmonary arrest Last Vital Signs Date Time Temp Pulse Resp B/P (MAP) Pulse Ox O2 Delivery O2 Flow Rate FiO2 09/25/18 15:10 104 28 100 Venturi Mask 4.0 30 09/25/18 13:18 80/58 (65) 09/25/18 12:00 99.6 Disposition: Condition: Critical Referrals: Inocencia Watt MD (PCP) Inocencia Carlisle DO Sep 25, 2018 16:45
--- NOTE | 2018-09-25 17:24 | Hematology/Onc Progress Note ---
Assessment/Plan Assessment/Plan Assessment and Recs: # Acute right leg DVT hx, before was on eliquis, currently is on heparin gtt also with mobile clot --> cards aware from prior admission --> currently on heparin gtt --> ONCE is on coumadin/lovenox, inr goal is 2-3 --> monitor for bleeding # Anemia of chronic disease due to underlying chronic medical issues, multifactorial. --> Anemia w/u has been reviewed. Ferritin at 450. --> hgb goal >7. Transfuse prn. --> No evidence of hemolysis noted --> hgb trend 12-->10.7-->10.1-->9.3->8.4->9 --> FOLIC ACID STARTED (with macrocytosis) and mcv >105 and low folate # Thrombocytopenia - most likely related to PNA infection. 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 CXR has been reviewed. --> pulm eval prn --> on multiple pressors in the icu per cards --> on abx per id # Myocardial infarction. --> Cardiac cath [address] Conde, neg --> on hep for nstemi # Atrial flutter with rapid ventricular response (reason for this admission). --> per cards, potential ablation o/p --> potential icd placement --> on heparin gtt, to continue # Psych disorder -- as per psych recs The timing of this note does not necessarily reflect the time of the patient was seen. Greatly appreciate consultation! Subjective Constitutional: Denies: no symptoms, chills, fever, malaise, weakness, other HEENT: Denies: no symptoms, eye pain, blurred vision, tearing, double vision, ear pain, ear discharge, nose pain, nose congestion, throat pain, throat swelling, mouth pain, mouth swelling, other Respiratory: Denies: no symptoms, cough, shortness of breath, SOB with excertion, SOB at rest, sputum, wheezing, other Gastrointestinal/Abdominal: Denies: no symptoms, abdomen distended, abdominal pain, black stools, tarry stools, blood in stool, constipated, diarrhea, difficulty swallowing, nausea, poor appetite, poor fluid intake, rectal bleeding , vomiting, other Genitourinary: Denies: no symptoms, burning, discharge, frequency, flank pain, hematuria, incontinence, pain, urgency, other Neurologic/Psychiatric: Denies: no symptoms, anxiety, depressed, emotional problems, headache, numbness, paresthesia, pre-existing deficit, seizure, tingling, tremors, weakness, other Endocrine: Denies: no symptoms, excessive sweating, flushing, intolerance to cold, intolerance to heat, increased hunger, increased thirst, increased urine, unexplained weight gain, unexplained weight loss, other Allergies: Coded Allergies: No Known Allergies (Unverified , 01/07/18) Subjective Subjective 09/19: was discharged yesterday, now comes back in for hypotension, on dig, and heparin gtt, cards seen 09/21: no events, no fevers or chills, no bleeding, on abx, off pressors, is on heparin gtt 09/22: coming off dopamine, vanc stopped per id, still on zosyn, labs reviewed, by beside and lynne rn 09/23: on dobutamine and levo, on abx, seen with rn, labs reviewed in icu 09/24: by bedside, remains confused, lynne rn, on pressors and abx 09/25: no events to report, no f/c, no night sweats noted ast much worse, less diarrhea Objective Objective Current Medications Medications (Trade) Dose Ordered Sig/Fritz Route PRN Reason Start Time Stop Time Status Last Admin Dose Admin Acetaminophen (Tylenol) 650 mg Q6H PRN GT Mild Pain/Temp > 100.5 09/19/18 03:45 10/19/18 03:44 09/25/18 08:51 Albuterol/ Ipratropium (Albuterol/ Ipratropium) 3 ml Q4HRT HHN 09/24/18 11:15 09/29/18 11:14 09/25/18 14:59 Aspirin (ASA) 81 mg DAILY GT 09/19/18 09:00 10/19/18 08:59 09/25/18 08:52 Chlorhexidine Gluconate (Nadeen-Hex 2%) 1 applic DAILY@2000 TOPIC 09/19/18 20:00 10/19/18 19:59 09/24/18 19:55 Digoxin (Lanoxin) 0.125 mg DAILY PEG 09/20/18 09:00 10/20/18 08:59 09/25/18 08:51 Dobutamine HCl 250 ml @ 7.022 mls/ hr Q24H IV 09/24/18 12:00 10/19/18 11:59 09/24/18 19:55 Folic Acid (Folate) 1 mg DAILY ORAL 09/23/18 16:35 10/23/18 16:34 09/25/18 08:52 Furosemide (Lasix) 20 mg DAILY IV 09/26/18 09:00 10/21/18 17:59 Heparin Sodium/ Dextrose 500 ml @ 16.408 mls/ hr ADJUST PER PROTOCOL IV 09/25/18 13:45 10/25/18 05:44 09/25/18 14:36 Loperamide HCl (Imodium) 2 mg Q6H PRN NG Diarrhea 09/23/18 09:00 10/23/18 08:59 09/24/18 09:14 Norepinephrine Bitartrate 16 mg/ Dextrose 516 ml @ 0 mls/hr Q24H IV 09/24/18 01:00 10/24/18 00:59 09/25/18 00:30 Ondansetron HCl (Zofran) 4 mg Q4H PRN IVP Nausea & Vomiting 09/19/18 04:15 10/19/18 04:14 Pantoprazole (Protonix) 40 mg DAILY IVP 09/19/18 09:00 10/19/18 08:59 09/25/18 08:50 Piperacillin Sod/ Tazobactam Sod 4.5 gm/Sodium Chloride 110 ml @ 27.5 mls/hr Q8HR IVPB 09/19/18 06:00 09/26/18 23:00 09/25/18 06:14 Potassium Chloride (K-Dur) 40 meq DAILY ORAL 09/22/18 09:00 10/22/18 08:59 09/25/18 08:50 Last 24 Hour Vital Signs Date Time Temp Pulse Resp B/P (MAP) Pulse Ox O2 Delivery O2 Flow Rate FiO2 09/25/18 15:10 104 28 100 Venturi Mask 4.0 30 09/25/18 14:59 98 25 95 Venturi Mask 4.0 30 09/25/18 13:18 110 38 80/58 (65) 99 09/25/18 13:15 108 41 100 09/25/18 13:00 112 38 83/56 (65) 98 09/25/18 13:00 80/58 09/25/18 12:45 110 36 92/60 (71) 100 09/25/18 12:30 117 35 83/69 (74) 99 09/25/18 12:15 115 41 82/69 (73) 99 09/25/18 12:00 101 09/25/18 12:00 82/69 09/25/18 12:00 99.6 115 36 80/65 (70) 99 09/25/18 12:00 Venturi Mask 4.0 09/25/18 11:45 117 39 91/61 (71) 98 09/25/18 11:30 111 43 84/61 (69) 09/25/18 11:15 117 38 78/62 (67) 100 09/25/18 11:00 108 44 84/70 (75) 98 09/25/18 11:00 78/62 09/25/18 10:49 119 30 100 Venturi Mask 4.0 30 09/25/18 10:45 116 63 83/62 (69) 100 09/25/18 10:30 110 32 97 Venturi Mask 4.0 30 09/25/18 10:30 80/67 09/25/18 10:30 117 62 77/63 (68) 100 09/25/18 10:15 118 55 83/62 (69) 100 09/25/18 10:00 83/62 09/25/18 10:00 119 63 88/60 (69) 100 09/25/18 09:45 119 58 87/66 (73) 100 09/25/18 09:30 110 61 88/69 (75) 100 09/25/18 09:15 118 53 88/65 (73) 100 09/25/18 09:00 84/65 09/25/18 09:00 119 39 86/65 (72) 99 09/25/18 08:51 120 09/25/18 08:45 119 36 82/66 (71) 100 09/25/18 08:30 119 39 89/64 (72) 100 09/25/18 08:15 120 34 94/70 (78) 100 09/25/18 08:00 Venturi Mask 4.0 09/25/18 08:00 99.0 120 34 88/66 (73) 100 09/25/18 08:00 119 09/25/18 08:00 81/68 09/25/18 07:45 117 34 81/68 (72) 99 09/25/18 07:30 116 34 85/63 (70) 91 09/25/18 07:25 119 33 100 Nasal Cannula 2.0 28 09/25/18 07:15 115 33 98/80 (86) 100 09/25/18 07:14 97 Nasal Cannula 2.0 28 09/25/18 07:14 118 23 97 Nasal Cannula 2.0 28 09/25/18 07:00 88/68 09/25/18 07:00 109 32 88/68 (75) 98 09/25/18 06:30 120 33 92/65 (74) 98 09/25/18 06:00 92/85 09/25/18 06:00 120 34 96/67 (77) 99 09/25/18 05:30 118 35 92/71 (78) 98 09/25/18 05:00 120 25 91/71 (78) 98 09/25/18 05:00 99/69 09/25/18 04:30 123 31 104/86 (92) 97 09/25/18 04:00 98.1 121 32 104/81 (89) 97 09/25/18 04:00 Nasal Cannula 2.0 09/25/18 04:00 104/66 09/25/18 04:00 124 09/25/18 03:30 117 32 99/81 (87) 99 09/25/18 03:00 89/50 09/25/18 03:00 116 37 106/80 (89) 100 09/25/18 02:30 126 33 109/80 (90) 100 09/25/18 02:12 116 28 100 Nasal Cannula 2.0 28 09/25/18 02:05 110 27 99 Nasal Cannula 2.0 28 09/25/18 02:00 116 31 94/74 (81) 98 09/25/18 02:00 101/62 09/25/18 01:30 106 15 95/76 (82) 100 09/25/18 01:00 97/69 09/25/18 01:00 99/70 09/25/18 01:00 116 25 94/78 (83) 99 09/25/18 00:30 111 25 95/75 (82) 98 09/25/18 00:30 100/78 09/25/18 00:00 98.9 114 30 95/76 (82) 97 09/25/18 00:00 Nasal Cannula 2.0 09/25/18 00:00 115 09/24/18 23:30 118 28 100/78 (85) 98 09/24/18 23:10 115 27 100 Nasal Cannula 2.0 28 09/24/18 23:00 127 28 114/87 (96) 98 09/24/18 23:00 114/87 09/24/18 22:57 117 25 100 Nasal Cannula 2.0 28 09/24/18 22:30 115 22 92/70 (77) 94 09/24/18 22:00 113 24 90/64 (73) 94 09/24/18 22:00 93/77 09/24/18 21:30 109 29 89/69 (76) 97 09/24/18 21:00 95/60 09/24/18 21:00 114 34 99/71 (80) 99 09/24/18 20:30 112 31 95/72 (80) 100 09/24/18 20:00 99.1 111 27 94/70 (78) 99 09/24/18 20:00 89/71 09/24/18 20:00 Nasal Cannula 2.0 09/24/18 20:00 109 09/24/18 19:55 89/67 09/24/18 19:30 110 29 89/67 (74) 100 09/24/18 19:29 114 25 100 Nasal Cannula 2.0 28 09/24/18 19:28 113 23 100 Nasal Cannula 2.0 28 09/24/18 19:22 111 23 100 Nasal Cannula 2.0 28 09/24/18 19:21 100 Nasal Cannula 2.0 28 09/24/18 19:00 89/67 09/24/18 19:00 112 30 97/72 (80) 100 09/24/18 18:30 110 31 89/71 (77) 100 09/24/18 18:00 109 25 90/69 (76) 99 09/24/18 18:00 90/69 09/24/18 17:30 105 26 93/74 (80) 98 09/24/18 17:00 111 27 89/68 (75) 100 09/24/18 17:00 95/73 09/24/18 16:30 111 26 93/71 (78) 99 09/24/18 16:00 115 09/24/18 16:00 98.3 112 28 95/71 (79) 100 09/24/18 16:00 95/71 09/24/18 16:00 Nasal Cannula 2.0 09/24/18 15:30 115 24 91/69 (76) 100 09/24/18 15:25 111 26 100 Nasal Cannula 2.0 28 09/24/18 15:12 107 25 99 Nasal Cannula 2.0 28 09/24/18 15:00 93/67 09/24/18 15:00 108 25 92/73 (79) 100 09/24/18 14:30 93/69 09/24/18 14:30 114 25 99/71 (80) 95 09/24/18 14:00 92/70 09/24/18 14:00 110 29 88/69 (75) 96 09/24/18 13:45 88/69 09/24/18 13:45 110 30 91/67 (75) 97 09/24/18 13:30 91/67 09/24/18 13:30 107 28 84/66 (72) 97 09/24/18 13:15 109 31 90/65 (73) 100 09/24/18 13:15 84/66 09/24/18 13:00 110 31 84/67 (73) 100 09/24/18 13:00 84/67 09/24/18 12:59 88/68 09/24/18 12:30 109 25 86/63 (71) 99 09/24/18 12:00 Nasal Cannula 2.0 09/24/18 12:00 98.4 110 26 85/66 (72) 99 09/24/18 12:00 90/68 09/24/18 12:00 111 09/24/18 11:30 112 25 90/67 (75) 99 09/24/18 11:23 112 28 100 Nasal Cannula 2.0 28 09/24/18 11:15 106 29 100 Nasal Cannula 2.0 28 09/24/18 11:00 108 25 85/68 (74) 99 09/24/18 11:00 85/68 09/24/18 10:30 110 30 96/64 (75) 99 09/24/18 10:00 92/64 09/24/18 10:00 112 27 89/67 (74) 99 09/24/18 09:30 92/67 09/24/18 09:30 110 31 92/66 (75) 100 09/24/18 09:16 115 09/24/18 09:00 111 30 90/64 (73) 98 09/24/18 09:00 86/65 09/24/18 08:45 113 31 88/63 (71) 97 09/24/18 08:45 90/64 09/24/18 08:30 88/63 09/24/18 08:30 112 35 84/63 (70) 98 09/24/18 08:15 84/63 09/24/18 08:15 106 25 82/62 (69) 100 09/24/18 08:00 98.8 104 29 82/64 (70) 100 09/24/18 08:00 109 09/24/18 08:00 Nasal Cannula 2.0 09/24/18 07:53 77/62 09/24/18 07:44 102 27 100 Nasal Cannula 2.0 28 09/24/18 07:35 100 Nasal Cannula 3.0 32 09/24/18 07:35 110 30 100 Nasal Cannula 3.0 32 09/24/18 07:30 108 27 83/66 (72) 99 09/24/18 07:00 101 25 90/72 (78) 100 09/24/18 07:00 90/72 09/24/18 06:30 99 25 78/61 (67) 100 09/24/18 06:00 83/61 8/7/19 06:00 103 33 83/61 (68) 100 09/24/18 05:30 100 22 87/58 (68) 100 09/24/18 05:00 100 19 86/62 (70) 100 09/24/18 05:00 87/58 09/24/18 04:30 106 22 82/60 (67) 100 09/24/18 04:17 87/71 09/24/18 04:00 Nasal Cannula 2.0 09/24/18 04:00 107 09/24/18 04:00 98.9 107 26 87/71 (76) 100 09/24/18 03:39 108 24 100 Nasal Cannula 3.0 32 09/24/18 03:30 101 30 89/67 (74) 100 09/24/18 03:29 106 26 100 Nasal Cannula 3.0 32 09/24/18 03:00 105 23 89/64 (72) 97 09/24/18 02:30 117 29 105/81 (89) 09/24/18 02:00 108 34 86/67 (73) 94 09/24/18 01:30 110 30 89/62 (71) 96 09/24/18 01:00 109 35 88/67 (74) 100 09/24/18 00:30 109 28 94/67 (76) 100 09/24/18 00:14 88/71 09/24/18 00:00 109 09/24/18 00:00 98.5 109 29 88/71 (77) 100 09/24/18 00:00 88/71 09/24/18 00:00 Nasal Cannula 2.0 09/23/18 23:42 110 26 100 Nasal Cannula 3.0 32 09/23/18 23:31 110 24 100 Nasal Cannula 3.0 32 09/23/18 23:30 110 29 95/69 (78) 100 09/23/18 23:00 108 25 98/61 (73) 100 09/23/18 23:00 93/69 09/23/18 22:30 102 24 91/69 (76) 95 09/23/18 22:00 112 25 92/66 (75) 95 09/23/18 22:00 91/68 09/23/18 21:30 108 25 100/70 (80) 97 09/23/18 21:00 100/70 8/6/19 21:00 112 19 92/69 (77) 98 09/23/18 20:30 119 34 103/76 (85) 100 09/23/18 20:00 99.0 112 43 95/68 (77) 100 09/23/18 20:00 Nasal Cannula 2.0 09/23/18 20:00 112 09/23/18 20:00 98/72 09/23/18 20:00 98/72 09/23/18 19:35 112 25 100 Nasal Cannula 3.0 32 09/23/18 19:30 113 38 98/72 (81) 100 09/23/18 19:25 100 Nasal Cannula 3.0 32 09/23/18 19:25 112 24 100 Nasal Cannula 3.0 32 09/23/18 19:00 96/69 09/23/18 19:00 110 32 96/67 (77) 100 09/23/18 18:30 108 48 93/69 (77) 100 09/23/18 18:15 108 48 91/68 (76) 100 09/23/18 18:00 108 48 93/69 (77) 100 09/23/18 18:00 93/68 09/23/18 17:45 105 48 103/69 (80) 100 09/23/18 17:30 108 48 93/71 (78) 100 Intake and Output 09/24/18 09/25/18 19:00 07:00 Intake Total 1523.1395 ml 1405.400 ml Output Total 670 ml 710 ml Balance 853.1395 ml 695.400 ml Intake Free Water 150 ml 50 ml IV Total 703.1395 ml 635.400 ml Tube Feeding 670 ml 720 ml Output Urine Total 670 ml 710 ml # Bowel Movements 1 Labs Test 09/22/18 21:44 09/23/18 04:15 09/24/18 04:00 09/25/18 02:55 Arterial Blood pH 7.508 (7.350-7.450) Arterial Blood Partial Pressure CO2 30.8 mmHg (35.0-45.0) Arterial Blood Partial Pressure O2 59.5 mmHg (75.0-100.0) Arterial Blood HCO3 23.9 mmol/L (22.0-26.0) Arterial Blood Oxygen Saturation 92.5 % (95-100) Arterial Blood Base Excess 1.4 (-2-2) Asad Test N/a White Blood Count 9.8 K/UL (4.8-10.8) 8.0 K/UL (4.8-10.8) Red Blood Count 2.80 M/UL (4.70-6.10) 2.53 M/UL (4.70-6.10) Hemoglobin 9.3 G/DL (14.2-18.0) 8.4 G/DL (14.2-18.0) Hematocrit 29.7 % (42.0-52.0) 26.8 % (42.0-52.0) Mean Corpuscular Volume 106 FL (80-99) 106 FL (80-99) Mean Corpuscular Hemoglobin 33.3 PG (27.0-31.0) 33.4 PG (27.0-31.0) Mean Corpuscular Hemoglobin Concent 31.4 G/DL (32.0-36.0) 31.5 G/DL (32.0-36.0) Red Cell Distribution Width 15.5 % (11.6-14.8) 15.3 % (11.6-14.8) Platelet Count 143 K/UL (150-450) 155 K/UL (150-450) Mean Platelet Volume 9.5 FL (6.5-10.1) 10.3 FL (6.5-10.1) Neutrophils (%) (Auto) 77.4 % (45.0-75.0) 75.7 % (45.0-75.0) Lymphocytes (%) (Auto) 12.3 % (20.0-45.0) 14.3 % (20.0-45.0) Monocytes (%) (Auto) 8.1 % (1.0-10.0) 8.0 % (1.0-10.0) Eosinophils (%) (Auto) 0.3 % (0.0-3.0) 1.2 % (0.0-3.0) Basophils (%) (Auto) 1.9 % (0.0-2.0) 0.8 % (0.0-2.0) Activated Partial Thromboplast Time 70 SEC (23-33) 69 SEC (23-33) 58 SEC (23-33) Sodium Level 134 MMOL/L (136-145) 139 MMOL/L (136-145) Potassium Level 4.3 MMOL/L (3.5-5.1) 4.6 MMOL/L (3.5-5.1) Chloride Level 102 MMOL/L (98-107) 104 MMOL/L (98-107) Carbon Dioxide Level 25 MMOL/L (21-32) 27 MMOL/L (21-32) Anion Gap 7 mmol/L (5-15) 8 mmol/L (5-15) Blood Urea Nitrogen 24 mg/dL (7-18) 30 mg/dL (7-18) Creatinine 1.2 MG/DL (0.55-1.30) 1.2 MG/DL (0.55-1.30) Estimat Glomerular Filtration Rate mL/min (>60) mL/min (>60) Glucose Level 143 MG/DL (74-106) 142 MG/DL (74-106) Calcium Level 8.2 MG/DL (8.5-10.1) 8.1 MG/DL (8.5-10.1) Phosphorus Level 2.0 MG/DL (2.5-4.9) Magnesium Level 1.9 MG/DL (1.8-2.4) Total Bilirubin 1.2 MG/DL (0.2-1.0) Direct Bilirubin 0.6 MG/DL (0.0-0.3) Aspartate Amino Transf (AST/SGOT) 22 U/L (15-37) Alanine Aminotransferase (ALT/SGPT) 7 U/L (12-78) Alkaline Phosphatase 78 U/L (46-116) Total Protein 6.4 G/DL (6.4-8.2) Albumin 1.9 G/DL (3.4-5.0) Globulin 4.5 g/dL Albumin/Globulin Ratio 0.4 (1.0-2.7) Test 09/25/18 10:10 09/25/18 12:05 Arterial Blood pH 7.448 (7.350-7.450) Arterial Blood Partial Pressure CO2 34.4 mmHg (35.0-45.0) Arterial Blood Partial Pressure O2 82.1 mmHg (75.0-100.0) Arterial Blood HCO3 23.3 mmol/L (22.0-26.0) Arterial Blood Oxygen Saturation 95.4 % (95-100) Arterial Blood Base Excess -0.4 (-2-2) Asad Test Positive White Blood Count 8.4 K/UL (4.8-10.8) Red Blood Count 2.70 M/UL (4.70-6.10) Hemoglobin 9.0 G/DL (14.2-18.0) Hematocrit 29.3 % (42.0-52.0) Mean Corpuscular Volume 108 FL (80-99) Mean Corpuscular Hemoglobin 33.3 PG (27.0-31.0) Mean Corpuscular Hemoglobin Concent 30.8 G/DL (32.0-36.0) Red Cell Distribution Width 15.4 % (11.6-14.8) Platelet Count 204 K/UL (150-450) Mean Platelet Volume 9.0 FL (6.5-10.1) Neutrophils (%) (Auto) 82.0 % (45.0-75.0) Lymphocytes (%) (Auto) 9.4 % (20.0-45.0) Monocytes (%) (Auto) 8.0 % (1.0-10.0) Eosinophils (%) (Auto) 0.0 % (0.0-3.0) Basophils (%) (Auto) 0.6 % (0.0-2.0) Activated Partial Thromboplast Time 107 SEC (23-33) Sodium Level 137 MMOL/L (136-145) Potassium Level 5.7 MMOL/L (3.5-5.1) Chloride Level 103 MMOL/L (98-107) Carbon Dioxide Level 24 MMOL/L (21-32) Anion Gap 10 mmol/L (5-15) Blood Urea Nitrogen 40 mg/dL (7-18) Creatinine 1.6 MG/DL (0.55-1.30) Estimat Glomerular Filtration Rate mL/min (>60) Glucose Level 150 MG/DL (74-106) Calcium Level 8.7 MG/DL (8.5-10.1) Total Bilirubin 1.2 MG/DL (0.2-1.0) Direct Bilirubin 0.7 MG/DL (0.0-0.3) Aspartate Amino Transf (AST/SGOT) 425 U/L (15-37) Alanine Aminotransferase (ALT/SGPT) 170 U/L (12-78) Alkaline Phosphatase 109 U/L (46-116) Total Protein 7.1 G/DL (6.4-8.2) Albumin 2.2 G/DL (3.4-5.0) Globulin 4.9 g/dL Albumin/Globulin Ratio 0.4 (1.0-2.7) Micro Microbiology Date/Time Source Procedure Growth Status 09/24/18 20:25 Stool Clostridium difficile Toxin Assay - Final Complete Height (Feet): 5 Height (Inches): 8.00 Weight (Pounds): 131 Objective HEENT: + Face Mask LUNGS: Coarse rhonchi b/l CV: Irregular. S1 and S2 with no gallop or murmur. ABD: Soft, + PEG in place EXT: No pitting edema. gu: josé++ Bruce Loya MD Sep 25, 2018 17:24
--- NOTE | 2018-09-26 15:10 | Discharge Summary ---
Discharge Summary Discharge Summary _ SUMMARY DATE OF ADMISSION: 09/19/2018 DATE OF EXPIRATION: 09/25/2018 REASON FOR ADMISSION: 77 years old male with past medical history of hypertension, COPD, atrial fibrillation, history of DVT, on chronic anticoagulation, thrombocytopenia, anemia, presented from the care home facility due to altered mental status and hypotension. Patient apparently was just discharged from the hospital and returned to the care home facility. Patient was found to have systolic blood pressure in mid 70s. Patient was also confused according to his . No report of trauma or injury. Upon evaluation vital signs reveal hypotension. Laboratory work-up revealed no leukocytosis, anemia with hemoglobin 10.4,, hematocrit 32.8 platelet count 159. BUN 33, creatinine 1.2. Total bilirubin 1.5, direct bilirubin 0.7. Troponin 0.124. pro BNP > 35,000. EKG revealed atrial fibrillation with controlled ventricular response. Stable LFT. Albumin 2.6. EKG revealed atrial fibrillation with controlled ventricular response. 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 Chest x-ray demonstrated cardiomegaly with evidence of bilateral interstitial and airspace opacity and bilateral pleural effusion. In emergency department central line was placed, patient started on pressor and was admitted to ICU for further management. CONSULTANTS: carpenter Dr. Alvarez neurologist Dr. Bernal pulmonary DR Diana ID specialist Dr. Galindo GI specialist Dr. Boo meat lugger Dr. Ontiveros psychological anthropologist/oncologist Dr. Loya [facility]: Patient admitted to ICU. Hemodynamic status was closely monitored. Pressors titrated o keep mean arterial blood pressure above 65. Patient was unable to be vigorously hydrated due to congestive heart failure. Patient required start of another pressor dopamine. Sales Recruitment Specialist followed. Patient noted to have atrial fibrillation with rapid ventricular response. Patient was loaded with digoxin. Echocardiogram on previous admission revealed ejection fraction of 15%. Grade 3 diastolic dysfunction. Mobile echogenic material in the left ventricular apex. Severe aortic stenosis. Patient started on heparin drip. Beta-jewel was stopped due to low blood pressure. Sales Recruitment Specialist recommended consider atrial flutter ablation as outpatient. Patient had a cardiogenic shock due to severe nonischemic cardiomyopathy with ejection fraction of 15%. Cardiac catheterization was done in December 2017 and revealed no evidence of coronary artery disease. Patient was prior on guideline directed medical therapy for congestive heart failure with Cozaar, Aldactone and Coreg. All medication were discontinued. Patient started on dopamine and dobutamine. Subsequently Levophed was added to keep systolic blood pressure above 90. Heparin drip was continued. Patient noted to have nonsustained ventricular tachycardia of 15 beats, likely due to severe nonischemic cardiomyopathy. Sales Recruitment Specialist recommended to consider automatic implanted cardiac defibrillator due to severe cardiomyopathy with ejection fraction of 15%. Patient initially was on empiric antibiotics. Blood culture revealed Staph epidermidis. Sputum culture revealed Kavitha. Stool for C. difficile was negative. Per ID specialist positive blood culture where likely contaminated. Patient probably had pneumonia. Zosyn was continued. Renal parameters and electrolytes were closely monitored. Electrolytes /calcium and magnesium corrected. Nephrotoxic's were avoided. Renal parameters worsened from initial 1.1 up to 1.6 on the day of expiration. Culled Fruit Packer followed. Supplemental oxygen titrated to keep pulse oximetry above 92%. BiPAP was on board as needed. Chest physical therapy and hand held nebulizing treatment provided as needed. Strict aspiration precaution maintained. Culled Fruit Packer recommended to consider thoracentesis, once patient is more stable. Neurologist seen and evaluated patient. Per neurologist patient likely had septic encephalopathy. Magnesium and folic acid were replaced. GI specialist followed. Patient had diarrhea. Stool for C. difficile was negative. G-tube feeding was changed to vital AF given diarrhea. Patient tolerated the tube feeding well. Rectal tube was placed to contain diarrhea. Imodium provided as needed. GI prophylaxis provided. CODE BLUE was called on 09/25. Patient was in pulseless electrical activity. ACLS protocol was initiated. Patient required emergency oral intubation. Multiple rounds of medication provided alternating with CPR. Patient continued to be in pulseless electrical activity along with asystole. No other shockable region. Unfortunately all attempts appeared to be futile. Patient was pronounced at 16:35 on 09/25. Cause of : cardiopulmonary arrest. FINAL DIAGNOSES: status post cardiopulmonary arrest due to pulseless electrical activity Acute respiratory failure, requiring intubation Cardiogenic shock due to severe nonischemic cardiomyopathy with ejection fraction 15% Mobile LV clot Atrial flutter with rapid ventricular response Severe aortic stenosis Nonsustained ventricular tachycardia Pulmonary edema Possible pneumonia Bilateral pleural effusion Sepsis/SIRS History of hypertension Dysphagia , status post PEG Septic encephalopathy Coronary artery disease with history of prior non-NSTEMI Anemia of chronic disease Acute kidney injury History of DVT right lower extremity Severe protein calorie malnutrition. I have been assigned to dictate discharge summary for this account. I was not involved in the patient's management. Dania Kendrick NP Sep 26, 2018 15:10
== END 2018-09-25 16:35 | disposition expired | DRG 871 ==
LOC: EDBD 22:59 → EDUNIT# 22:59 → EMR 23:27 → ICU 09-19 01:15 → EDBEDREQ 09-19 02:37
PROC: 05HM33Z Insertion of Infusion Device into Right Internal Jugular Vein, Percutaneous Approach (ICD-10-PCS; principal; 2018-09-18)
PROC: 0BH17EZ Insertion of Endotracheal Airway into Trachea, Via Natural or Artificial Opening (ICD-10-PCS; 2018-09-25)
DX: A41.9 Sepsis, unspecified organism (principal); J18.9 Pneumonia, unspecified organism; E43 Unspecified severe protein-calorie malnutrition; R65.21 Severe sepsis with septic shock; G93.41 Metabolic encephalopathy; J96.00 Acute respiratory failure, unspecified whether with hypoxia or hypercapnia; I48.92 Unspecified atrial flutter; I47.2 Ventricular tachycardia; Z68.1 Body mass index [BMI] 19.9 or less, adult; N17.9 Acute kidney failure, unspecified; I42.8 Other cardiomyopathies; I82.401 Acute embolism and thrombosis of unspecified deep veins of right lower extremity; F09 Unspecified mental disorder due to known physiological condition; I11.0 Hypertensive heart disease with heart failure; I50.9 Heart failure, unspecified; K21.9 Gastro-esophageal reflux disease without esophagitis; E83.42 Hypomagnesemia; R62.7 Adult failure to thrive; E83.51 Hypocalcemia; R13.10 Dysphagia, unspecified; Z93.1 Gastrostomy status; D69.6 Thrombocytopenia, unspecified; I35.0 Nonrheumatic aortic (valve) stenosis; D64.9 Anemia, unspecified
CPT/HCPCS: 36415; 36600; 70450; 71045; 80048; 80053; 80076; 80162; 80202; 81003; 82043; 82044; 82248; 82306; 82553; 82570; 82607; 82746; 82803; 82962; 83605; 83735; 83880; 83921; 84100; 84134; 84300; 84484; 85025; 85610; 85730; 87040; 87070; 87081; 87181; 87205; 87324; 89050; 92950; 93005; 94640; 94664; 96365; 96366; 96367; 99291; J0171; J7620; J8499